=== PATIENT | female | born 1940 | race Caucasian/White ===

== ENCOUNTER 2022-05-13 22:57 | Inpatient (IN) | payer OTHER, SELFPAY ==
--- NOTE | ~2022-05-13 | CT_ITS ---
EXAMINATION: CT brain wo con DATE: 05/20/2022 16:27 INDICATION: Altered mental status. TECHNIQUE: Computed tomography (CT) of the head was performed without intravenous contrast. The mA wa s adjusted according to patient size. Iterative reconstruction technique was employed. The dose-lengt h product was 681.00 mGy-cm. COMPARISON: Head CT 05/14/2022 FINDINGS: There are scattered areas of low attenuation in the cerebral white matter. There is no intr acranial hemorrhage, acute infarction, or abnormal intracranial mass lesion. The ventricles are karon l in size. There are likely changes of ocular lens replacement surgeries. There is mild mucosal thick ening in the paranasal sinuses. The mastoid air cells are normal. IMPRESSION: 1. Stable mild nonspecific cerebral white matter disease, which likely represents chronic small vesse l ischemic disease. Reviewed, dictated and finalized at location B. IMPRESSION: 1. Stable mild nonspecific cerebral white matter disease, which likely represen ts chronic small vessel ischemic disease.
--- NOTE | ~2022-05-13 | CT_ITS ---
EXAMINATION: CT thoracic lumbar wo con DATE: 05/14/2022 00:38 INDICATION: Back pain. Fall. TECHNIQUE: Computed tomography (CT) of the thoracic and lumbar spine was performed without intravenou s contrast. Automated exposure control and iterative reconstruction technique were employed. The dose -length product was 1385.77 mGy-cm. COMPARISON: None FINDINGS: CT THORACIC SPINE: There are surgical changes of the stomach. There is a small sliding hiatal hernia. There is ingested material in the esophagus. There is 32 degrees dextroscoliosis of thoracic spine. There is kyphosis of thoracic spine. There is a burst fracture of T9 with 1/5 loss of height and retr opulsion of bone 2 mm into central spinal canal. There is a chronic burst fracture of T12 with 1/5 lo ss of height and retropulsion of bone 2 mm into central spinal canal. There is mildly decreased disc height at multiple levels. There is multilevel facet joint osteoarthritis, severe on the right at T4- T5 and T11-T12. On the right, there is mild neural foraminal stenosis at T4-T5 and moderate neural fo raminal stenosis at T11-T12. On the left, there is mild neural foraminal stenosis at T5-T6, T6-T7, T7 -T8, T9-T10, T10-T11, and T11-T12. There is mild central canal stenosis at T9 and T11-T12. CT LUMBAR SPINE: There is 50 degrees levoscoliosis of thoracolumbar spine. There is a chronic burst f racture of L3 with 1/5 loss of height and retropulsion of bone 3 mm into central spinal canal. The fo llowing disc levels are specifically discussed: T12-L1: The disc is bulging. There is severe bilateral facet joint osteoarthritis. There is moderate right and mild left neural foraminal stenosis. There is mild central canal stenosis. L1-L2: The disc does not extend beyond the endplate margin. There is severe bilateral facet joint ost eoarthritis. There is moderate right and mild left neural foraminal stenosis. There is no central can al stenosis. L2-L3: The disc is bulging. There is severe bilateral facet joint osteoarthritis. There is mild bilat eral neural foraminal stenosis. There is mild central canal stenosis. L3-L4: The disc is bulging. There is severe bilateral facet joint osteoarthritis. There is moderate r ight and mild left neural foraminal stenosis. There is moderate central canal stenosis. L4-L5: The disc is bulging. There is severe bilateral facet joint osteoarthritis. There is mild right and moderate left neural foraminal stenosis. There is mild central canal stenosis. L5-S1: The disc is bulging. There is severe bilateral facet joint osteoarthritis. There is mild bilat eral neural foraminal stenosis. There is no central canal stenosis. IMPRESSION: 1. T9 burst fracture, likely acute or subacute. 2. Mild thoracic spondylosis and severe lumbar spondylosis. 3. Scoliosis. Reviewed, dictated and finalized at location A.
--- NOTE | ~2022-05-13 | XR_ITS ---
EXAMINATION: XR chest 2V DATE: 05/20/2022 16:13 INDICATION: Shortness of breath TECHNIQUE: AP and lateral views of the chest are obtained. COMPARISON: 05/14/2022 FINDINGS: There are airspace opacities of the left upper lobe. No pleural effusion or pneumothorax. T he cardiomediastinal silhouette is normal. There is a T9 burst fracture with interval worsening. Thor acolumbar scoliosis is noted. IMPRESSION: 1. Left upper lobe airspace opacity, consistent with atelectasis versus pneumonia. 2. Worsening T9 burst fracture. Reviewed, dictated and finalized at location A. IMPRESSION: 1. Left upper lobe airspace opacity, consistent with atelectasis versus pneumon ia. 2. Worsening T9 burst fracture.
--- NOTE | ~2022-05-13 | XR_ITS ---
EXAMINATION: XR surgery orthopedic DATE: 05/14/2022 14:03 INDICATION: Left hip intertrochanteric nailing TECHNIQUE: 4 fluoroscopic images of the left hip and proximal femur were obtained during procedure pe rformed by Dr. Ochoa. Radiologist was not present for the imaging or procedure. The amount of fluor oscopy time used during this procedure was 1.3 minutes. COMPARISON: 05/14/2022 FINDINGS: Interval reduction of the previous noted comminuted intratrochanteric fracture of the proximal left f emur. Main proximal and distal fragments been reduced to near-anatomic alignment and are fixed with a n antegrade intramedullary herrera with femoral neck dynamic compression screw and distal interlocking sc rew fixation. No significant change in approximately 1 cm proximal/medial distraction of a lesser tro chanteric fragment which is not included within the fixation. No new fractures identified. There is w idening of the medial side of the left hip joint space which suggests that the images obtained with t raction upon the left hip. Marginal ossified swelling the lateral rim of the acetabulum suggests at l east mild underlying osteoarthritis. Expected small amount of soft tissue gas at the operative bed. IMPRESSION: 1. Near-anatomic alignment post open reduction and internal fixation of a comminuted intratrochanteri c fracture of the proximal left femur. Reviewed, dictated and finalized at location B. IMPRESSION: 1. Near-anatomic alignment post open reduction and internal fixation of a commi nuted intratrochanteric fracture of the proximal left femur.
--- NOTE | ~2022-05-13 | XR_ITS ---
EXAMINATION: XR hip LT 2V w AP pelvis DATE: 05/14/2022 00:33 INDICATION: Left hip pain. TECHNIQUE: An anteroposterior view of the pelvis and 2 views of left hip were obtained. COMPARISON: None. FINDINGS: There is a comminuted intertrochanteric fracture of proximal left femur. The main distal fr acture fragment demonstrates 72 degrees posterior angulation and 25 degrees varus angulation. There i s mild left hip osteoarthritis. There is lumbar levoscoliosis and severe spondylosis. IMPRESSION: 1. Comminuted intertrochanteric fracture of proximal left femur. 2. Mild left hip osteoarthritis. Reviewed, dictated and finalized at location A.
--- NOTE | ~2022-05-13 | XR_ITS ---
EXAMINATION: XR chest 1V DATE: 05/14/2022 00:33 INDICATION: Dizziness. TECHNIQUE: A single frontal view of the chest was obtained. COMPARISON: None. FINDINGS: The chest demonstrates clear lungs without pneumonia, pleural effusion, or pneumothorax. Th e heart size is normal. Surgical clips in the right upper quadrant are likely from cholecystectomy. IMPRESSION: 1. No acute cardiopulmonary disease. Reviewed, dictated and finalized at location A.
--- NOTE | ~2022-05-13 | CT_ITS ---
EXAMINATION: CT brain wo con DATE: 05/14/2022 00:38 INDICATION: Dizziness. Head injury. TECHNIQUE: Computed tomography (CT) of the head was performed without intravenous contrast. The mA wa s adjusted according to patient size. Iterative reconstruction technique was employed. The dose-lengt h product was 681.00 mGy-cm. COMPARISON: None FINDINGS: There are scattered areas of low attenuation in the cerebral white matter. There is an empt y sella. There is no intracranial hemorrhage, acute infarction, or abnormal intracranial mass lesion. The ventricles are normal in size. There is mild mucosal thickening in the paranasal sinuses. There are likely changes of ocular lens replacement surgeries. The mastoid air cells are normal. IMPRESSION: 1. Mild nonspecific cerebral white matter disease, which likely represents chronic small vessel ische adeline disease. Reviewed, dictated and finalized at location A. IMPRESSION: 1. 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
[2022-05-13 23:08] VITALS: BP 112/90; PULSE 93; RESP 18; TEMP 36.6; O2SAT 100
--- NOTE | 2022-05-13 23:17 | ED.LOWEXIN ---
HPI - Extremity Injury (Lower) General Chief Complaint: Extremity Injury, Lower Stated Complaint: FALL, HIP PAIN Time Seen by Provider: 05/13/22 23:17 Source: patient Mode of arrival: ambulatory Limitations: no limitations History of Present Illness HPI Narrative: Patient is an 81-year-old female with a history of hypertension, hyperlipidemia, mild cognitive impairment, acid reflux, hypothyroidism, presenting to the emergency department for evaluation following a ground-level fall with left hip pain. Patient states that she stood up from a seated position to walk to bed when she became dizzy, causing her to fall to her left side. Patient landed on her left side, reports immediate left hip pain. States that she did not hit her head or lose consciousness. She denies anticoagulation. Patient states she was unable to stand, thus her called an ambulance was transported here to the hospital. Patient currently reports mild nausea, pain in her left hip which is aching in nature. She reports middle back pain. She denies any chest pain, shortness of breath. Patient denies recent illnesses. She denies fever, chills, dysuria or hematuria. She denies abdominal pain. Patient states she recently moved to this area in December. Does not currently have a physician in [place]. Patient is also reporting middle back pain. Reports pain is aching in the middle of her spine, occurred after the fall. Related Data Allergies Allergy/AdvReac Type Severity Reaction Status Date / Time diphenhydramine AdvReac Agitated Verified 05/13/22 23:50 [From Britton] Review of Systems Review of Systems: CONSTITUTIONAL: Denies fever, chills EYES: Denies visual changes, redness, or discharge. ENT: Denies rhinorrhea, congestion, sore throat, or otalgia. CARDIOVASCULAR: Denies chest pain, palpitations, or edema. RESPIRATORY: Denies cough or dyspnea. GASTROINTESTINAL: Denies abdominal pain, reports nausea GENITOURINARY: Denies dysuria or hematuria. SKIN: Denies rash or itching. MUSCULOSKELETAL: Reports middle and lower back pain, reports left hip pain NEUROLOGIC: Denies headache, numbness, or weakness. Reports dizziness. [facility] Surgical History Surgical History H/O: hysterectomy Hx of cholecystectomy Social History Social History Smoking status: Never smoker Alcohol intake: never Substance use: never Living arrangements: with family Gender identity (if verbalized by the patient): Female Exam Narrative: GENERAL: Awake, alert, conversant HEAD: Normocephalic, atraumatic. EYES: PERRLA and EOMI. No horizontal or vertical nystagmus. ENT: Nares clear, no rhinorrhea or epistaxis. Mucous membranes moist. NECK: Supple. No cervical midline tenderness. CHEST: No respiratory distress, breathing even and non labored HEART: Regular rate, sinus rhythm ABDOMEN:Non distended, non tender EXTREMITIES: Patient with pain overlying the left hip. There is deformity present. The leg is shortened and externally rotated. DP pulse 2+. Intact distal sensation. SKIN: Warm, dry, no rash. NEURO:No focal deficits. Alert and oriented x3. Finger to nose intact bilaterally without dysmetria EOMs intact without nystagmus. No facial droop/asymmetry noted bilaterally. Grimace intact. Intact sensation in face. Hearing intact bilaterally. Shoulder shrug intact. Strength 5/5 bilateral upper extremities. Strength in the right lower extremity is 5/5. Strength in the left lower extremity was not tested due to deformity and pain. Intact distal sensation. Course Vital Signs Vital signs: Vital Signs Temperature 36.6 C 05/13/22 23:08 Pulse Rate 93 05/13/22 23:08 Respiratory Rate 18 05/13/22 23:08 Blood Pressure 112/90 05/13/22 23:08 Pulse Oximetry 100 05/13/22 23:08 Oxygen Delivery Room Air 05/13/22 23:08 Temperature 36.6 C
[2022-05-13 23:52] LABS: Basophils Percent Auto 0.2 % (0.2-1.2); Eosinophils Percent Auto 0.2 % (0-4.4); Hematocrit 38.4 % (37.0-47.0); Hemoglobin 12.1 g/dL (12.0-15.0); Immature Granulocyte Absolute 0.26 K/mm3 (0.00-0.031); Immature Granulocyte Percent A 1.9 % (0-0.5); Lymphocytes Absolute Auto 1.37 K/mm3 (0.9-3.2); Lymphocytes Percent Auto 10.1 % (18.3-44.2); Mean Corpuscular HGB Conc 31.5 g/dl (32-36); Mean Corpuscular Hemoglobin 29.9 pg (26-34); Mean Corpuscular Volume 94.8 fl (80-100); Mean Platelet Volume 10.2 fl (7.4-10.4); Monocytes Absolute Auto 0.8 K/mm3 (0.1-0.6); Monocytes Percent Auto 6.2 % (2.6-8.5); Neutrophils Percent Auto 81.4 % (45.5-73.1); Platelet Count Result 356 k/mm3 (150-375); Red Blood Count 4.05 M/mm3 (4.2-5.4); Red Cell Distribution Width 13.7 % (11.5-14.5); White Blood Count 13.6 K/mm3 (4.5-10.0)
[2022-05-13 23:53] VITALS: PULSE 93; RESP 19; O2SAT 99
[2022-05-13 23:54] VITALS: BP 128/84; PULSE 98; RESP 22
[2022-05-13 23:54] LABS: Add Urine Microscopic? YES; Appearance Urine Cloudy (Clear); Bilirubin Urine Negative (Negative); Blood Urine Negative (Negative); Color Urine Yellow (Yellow); Glucose Urine UA Negative (Negative); Ketones Urine Negative (Negative); Leukocyte Esterase Ur Negative LEU/UL (Negative); Nitrate Urine Negative (Negative); Protein Urine Negative (Negative); RBC Urine 0-2 /hpf (0-2); Specific Grav Ur 1.008 (1.001-1.035); Squamous Epithelial Cell Urine Rare /hpf (Few); Urobilinogen Urine Negative mg/dL (<2.0); WBC Urine 0-3 /hpf
[2022-05-13] MEDS: MORPHINE SULFATE (*CRX) 2 MG/ML INJ IV PUSH (23:55)
[2022-05-13] MEDS: ONDANSETRON INJ 4 MG/2 ML VIAL IV PUSH (23:55)
[2022-05-14] VITALS (20 sets, daily range): BP systolic 114–155; BP diastolic 70–96; PULSE 88–119; RESP 12–23; TEMP 36–36.7; O2SAT 93–100; BMI 26.4
--- NOTE | 2022-05-14 | ECG_ITS ---
Measurements Intervals [place] Rate: 92 P: 54 UT: 159 QRS: -7 QRSD: 83 T: 33 QT: 367 QTc: 455 Interpretive Statements SINUS RHYTHM INCOMPLETE RIGHT BUNDLE BRANCH BLOCK NONSPECIFIC T-WAVE ABNORMALITY BASELINE ARTIFACT IS PRESENT NO PREVIOUS ECG AVAILABLE FOR COMPARISON Electronically Signed On 05-14-2022 14:42:44 CDT by Traci Aquino M.D.
[2022-05-14 00:04] LABS: Alanine Aminotransferase 22 U/L (6-35); Albumin Level 3.8 g/dL (3.5-5.1); Alkaline Phosphatase 69 U/L (38-126); Anion Gap 7 mmol/L (8-16); Aspartate Amino Transferase 24 U/L (14-36); Bilirubin,Total 0.6 mg/dL (0.2-1.3); Blood Urea Nitrogen 27 mg/dL (7-17); Calcium 9.4 mg/dL (8.4-10.2); Carbon Dioxide 26 mmol/L (22-30); Chloride 100 mmol/L (98-107); Estimated CRCL calculation 36 ml/min; Estimated Glomerular Filt Rate 48; Glucose 153 mg/dL (65-110); Partial Thromboplastin Time 29.5 SECONDS (22.3-36.8); Potassium 3.8 mmol/L (3.4-5.0); Sodium 133 mmol/L (137-145)
[2022-05-14 00:15] LABS: Troponin I < 0.012 ng/mL (0.000-0.034)
[2022-05-14 00:31] LABS: SARS-CoV-2 RNA PCR Negative
[2022-05-14] MEDS: MECLIZINE HCL 25 MG TABLET PO (00:43)
--- NOTE | 2022-05-14 01:11 | PM.IMHP ---
H&P: HPI History of Present Illness Date/Time: 05/14/22 01:11 Chief Complaint: 81 years old female with past medical history of hypertension hyperlipidemia presented to the hospital status post fall patient was feeling dizzy after she stood up from setting patient fell to the ground on the left side started complaining of left hip pain severe associated with difficulty walking patient also complaining of lower back pain severe worsening gradually patient also complained of nausea denies vomiting at the ER skeletal survey was done showed fracture of the hip orthopedic was consulted also patient has compression fracture of the lumbar spine pending final report patient was admitted to the hospital for further evaluation and treatment Review of Systems Review of Systems: Twelve system review was negative except above PMFSH Surgical History Surgical History H/O: hysterectomy Hx of cholecystectomy Social History Social History Smoking status: Never smoker Alcohol intake: never Substance use: never Living arrangements: with family Gender identity (if verbalized by the patient): Female Meds Home Medications and Allergies Allergies Allergy/AdvReac Type Severity Reaction Status Date / Time diphenhydramine AdvReac Agitated Verified 05/13/22 23:50 [From Benadryl] Vital Signs Vital Signs - 24 hr 05/13/22 23:08 05/13/22 23:53 05/13/22 23:54 Temperature 97.9 F Pulse Rate 93 93 98 Respiratory Rate 18 19 22 H Blood Pressure 112/90 128/84 Pulse Oximetry 100 99 Oxygen Delivery Room Air 05/14/22 00:00 05/14/22 00:01 Temperature Pulse Rate 94 94 Respiratory Rate 19 23 H Blood Pressure 123/93 H Pulse Oximetry 100 98 Oxygen Delivery Exam Narrative: GENERAL: Well appearing, well-nourished, non-toxic, in no acute distress. HEAD: Normocephalic, atraumatic. NECK: Supple. No adenopathy, no masses. RESPIRATORY: Airway patent, respirations nonlabored. Clear to auscultation bilaterally, no rales, rhonchi, wheezing. CARDIOVASCULAR: Regular rate and rhythm without murmurs, rubs, or gallops. Peripheral pulses 2+ and equal bilaterally. ABDOMINAL: Soft, nontender, nondistended, no hepatosplenomegaly. Normoactive BS. MUSCULOSKELETAL: Positive back tenderness positive hip tenderness restricted joint movement SKIN: Warm, dry, normal color. No rashes. NEURO: A&O X3. Speech clear. Cranial nerves II-XII grossly intact. Steady gait. No ataxic movements. PSYCHIATRIC: Appropriate mood and affect. Normal interaction. H&P: Results Labs Labs: Short CBC 05/13/22 Range/Units 23:44 WBC 13.6 H (4.5-10.0) K/mm3 Hgb 12.1 (12.0-15.0) g/dL Hct 38.4 (37.0-47.0) % Plt Count 356 (150-375) k/mm3 BMP 05/13/22 23:44 Sodium 133 L Potassium 3.8 Chloride 100 Carbon Dioxide 26 BUN 27 H Creatinine 1.10 H Glucose 153 H Calcium 9.4 Cardiac Enzymes 05/13/22 Range/Units 23:44 Troponin I < 0.012 (0.000-0.034) ng/mL Liver Function 05/13/22 Range/Units 23:44 Total Bilirubin 0.6 (0.2-1.3) mg/dL AST 24 (14-36) U/L ALT 22 (6-35) U/L Alkaline Phosphatase 69 (38-126) U/L Albumin 3.8 (3.5-5.1) g/dL Urine 05/13/22 Range/Units 23:44 Urine Color Yellow (Yellow) Urine Appearance Cloudy H (Clear) Urine pH 5.0 (5.0-9.0) Ur Specific [place] 1.008 (1.001-1.035) Urine Protein Negative (Negative) mg/dL Urine Glucose (UA) Negative (Negative) mg/dL Assessment and Plan Assessment and plan (1) Hypertriglyceridemia: Code(s): E78.1 - Pure hyperglyceridemia Status: Acute Assessment and Plan: Pending home medication reconciliation check CK (2) Hypothyroidism: Code(s): E03.9 - Hypothyroidism, unspecified Status: Acute Assessment and Plan: Pending home medication reconciliation
[2022-05-14] MEDS: MORPHINE SULFATE (*CRX) 2 MG/ML INJ IV PUSH ×2 (01:42→07:58)
[2022-05-14] MEDS: LACTATED RINGERS 1,000 ML 125 ML IV CONT (01:43)
[2022-05-14 02:33] LABS: Vitamin D 25 Hydroxy 47.6 ng/mL
[2022-05-14] MEDS: ONDANSETRON INJ 4 MG/2 ML VIAL IV PUSH ×3 (06:01→16:35)
[2022-05-14 06:06] LABS: Basophils Absolute Auto 0.1 K/mm3 (0.0-0.1); Basophils Percent Auto 0.3 % (0.2-1.2); Eosinophils Percent Auto 0.1 % (0-4.4); Hematocrit 38.5 % (37.0-47.0); Hemoglobin 12.1 g/dL (12.0-15.0); Immature Granulocyte Percent A 1.2 % (0-0.5); Lymphocytes Percent Auto 4.8 % (18.3-44.2); Mean Corpuscular HGB Conc 31.4 g/dl (32-36); Mean Corpuscular Volume 95.3 fl (80-100); Mean Platelet Volume 10.6 fl (7.4-10.4); Monocytes Absolute Auto 2.3 K/mm3 (0.1-0.6); Monocytes Percent Auto 9.2 % (2.6-8.5); Neutrophils Absolute Auto 21.1 K/mm3 (1.3-6.7); Neutrophils Percent Auto 84.4 % (45.5-73.1); Platelet Count Result 289 k/mm3 (150-375); Red Blood Count 4.04 M/mm3 (4.2-5.4); Red Cell Distribution Width 13.5 % (11.5-14.5)
[2022-05-14 06:31] LABS: Alanine Aminotransferase 21 U/L (6-35); Albumin Level 3.7 g/dL (3.5-5.1); Alkaline Phosphatase 62 U/L (38-126); Anion Gap 9 mmol/L (8-16); Aspartate Amino Transferase 24 U/L (14-36); Bilirubin,Total 0.8 mg/dL (0.2-1.3); Blood Urea Nitrogen 29 mg/dL (7-17); Calcium 9.4 mg/dL (8.4-10.2); Carbon Dioxide 24 mmol/L (22-30); Chloride 103 mmol/L (98-107); Estimated CRCL calculation 29 ml/min; Estimated Glomerular Filt Rate 43; Glucose 132 mg/dL (65-110); Potassium 3.8 mmol/L (3.4-5.0); Sodium 136 mmol/L (137-145)
--- NOTE | 2022-05-14 07:25 | PM.CNOR ---
Assessment and Plan Assessment and plan (1) Closed intertrochanteric fracture of left hip: Code(s): S72.142A - Displaced intertrochanteric fracture of left femur, initial encounter for closed fracture Status: Acute Assessment and Plan: Discussed nonoperative and operative treatment options with the patient. Risks and benefits of each as well as alternatives were reviewed. All of the patient's questions were answered. The risks of surgery reviewed including but not limited to: Neurovascular damage, wound complication, infection, blood clot, pulmonary embolus, stroke, myocardial infarction, and anesthetic risks up to and including . Continued pain and possible dysfunction were explained. Specific risks of the procedure including later recurrence of deformity. No guarantees were offered. If hardware used, discussed risk of failure/ breakage and possible need for removal. If complications occur, the patient understands the need for further treatment, possible further surgery. Patient verbalizes understanding and wishes to proceed. PLAN: LT hip trochanteric nail with hip screw when stable History of Present Illness HPI Consult date: 05/14/22 Requesting physician: Rut Lyon MD Chief complaint: HIP FRACTURE Narrative: 81yo woman with mild dementia, fall at home on left side. LT hip fracture. C/O pain left side. No prior complaints Review of Systems Constitutional: Constitutional: Denies fever(s) Eyes: Eyes: Denies blurry vision ENT: Reports Normal hearing present Cardiovascular: Cardiovascular: Denies chest pain and Denies dyspnea Respiratory: Respiratory: Denies dyspnea and Denies wheezing Gastrointestinal: Gastrointestinal: Denies abdominal pain Genitourinary: Genitourinary: Denies urinary urgency Musculoskeletal: Musculoskeletal: Reports as per HPI and Denies numbness Integumentary/Breasts: Skin/Breast: Denies changing lesions and Denies sores Neurologic: Reports Normal hearing present, Denies behavioral changes, Denies confusion, Denies numbness and Denies convulsions Psychiatric: Psychiatric: Denies behavioral changes, Denies confusion and Denies hallucinations Endocrine: Endocrine: Denies heat intolerance Hematologic/Lymphatic: Hematologic/Lymphatic: Denies easy bleeding Allergic/Immunologic: Allergic/Immunologic: Denies wheezing PMFSH Past Medical History Medical History (Updated 05/14/22 @ 07:28 by Kurtis Ochoa MD) Closed intertrochanteric fracture of left hip Surgical History Surgical History H/O: hysterectomy Hx of cholecystectomy Family History Family History Other Unknown family medical history Social History Social History Smoking status: Never smoker Alcohol intake: never Substance use: never Living arrangements: with family Gender identity (if verbalized by the patient): Female Spiritual care concerns: No Meds Home Medications and Allergies Home Medications Medication Instructions Recorded Confirmed Type cyanocobalamin (vitamin B-12) 500 500 mcg PO DAILY 05/14/22 05/14/22 History mcg tablet (Vitamin B-12) cyclobenzaprine 10 mg tablet 10 mg PO BID PRN Muscle Spasm 05/14/22 05/14/22 History dicyclomine 10 mg capsule 10 mg PO BID PRN IBS 05/14/22 05/14/22 History donepezil 5 mg tablet 5 mg PO HS 05/14/22 05/14/22 History duloxetine 60 mg capsule,delayed 60 mg PO DAILY 05/14/22 05/14/22 History release eszopiclone 3 mg tablet 3 mg PO HS 05/14/22 05/14/22 History ezetimibe 10 mg tablet 10 mg PO DAILY 05/14/22 05/14/22 History folic acid 1 mg tablet 1 mg PO DAILY 05/14/22 05/14/22 History gabapentin 600 mg tablet 600 mg PO TID 05/14/22 05/14/22 History levothyroxine 50 mcg tablet 50 mcg PO DAILY 05/14/22 05/14/22 History pantoprazole 40 mg tablet,delayed 40 mg PO BI
--- NOTE | 2022-05-14 07:28 | PM.IMPN ---
Progress Note: A&P Assessment and Plan (1) Closed left hip fracture: Qualifiers: Encounter type: initial encounter Qualified Code(s): S72.002A - Fracture of unspecified part of neck of left femur, initial encounter for closed fracture Code(s): S72.002A - Fracture of unspecified part of neck of left femur, initial encounter for closed fracture Status: Acute Assessment and Plan: Imaging shows comminuted left femoral hip fracture following fall from ground level. Orthopedic surgery consulted and appreciate recommendations. Plan for OR today 05/14/22. Jacques perioperative risk for LEXI score 0.4%. SR with incomplete right BBB & non-specific ST changes. Echo pending and will be done postop. troponin <0.012. LDL 79, HDL 42. A1c 5.6%. WBC 25, but likely secondary to fracture. UA without acute infection. Continue pain control with IV morphine 2 mg Q2 hours. DVT prophylaxis SCDs preop Vitamin D 25-OH level 47.6 (2) Compression fracture of thoracic vertebra: Qualifiers: Encounter type: initial encounter Thoracic vertebra fracture level: T9 Qualified Code(s): S22.070A - Wedge compression fracture of T9-T10 vertebra, initial encounter for closed fracture Code(s): S22.000A - Wedge compression fracture of unspecified thoracic vertebra, initial encounter for closed fracture Status: Acute Assessment and Plan: CT thoracic spine with acute vs subacute burst fracture of T9 with 1/5 loss of height and retropulsion of bone 2 mm into central spinal canal, as well as chronic burst fracture of T12 with 1/5 loss of height and retropulsion of bone 2 mm into central spinal canal. Pain control as above. She reports taking prednisone for chronic back pain. Consult Neurosurgery for further evaluation. Unknown last DEXA scan. Family reports the patient may have been diagnosed with osteoporosis in the past, but do not know if she has received oral or injection therapy. She reports chronic lower back pain history and is currently on Cymbalta, cyclobenzaprine PRN, prednisone and gabapentin. Resume all medications but prednisone postop. (3) Hypertension: Qualifiers: Hypertension type: primary hypertension Qualified Code(s): I10 - Essential (primary) hypertension Code(s): I10 - Essential (primary) hypertension Status: Acute Assessment and Plan: Chronic, stable, not currently on antihypertensives. (4) Hypothyroidism: Qualifiers: Hypothyroidism type: acquired Qualified Code(s): E03.9 - Hypothyroidism, unspecified Code(s): E03.9 - Hypothyroidism, unspecified Status: Chronic Assessment and Plan: Chronic, stable. TSH 1.67. Continue levothyroxine at home dose. (5) Chronic kidney disease: Qualifiers: Chronic kidney disease stage: stage 3 (moderate) Chronic kidney disease stage 3 subtype: stage 3a (GFR 45-59) Qualified Code(s): N18.31 - Chronic kidney disease, stage 3a Code(s): N18.9 - Chronic kidney disease, unspecified Status: Acute Assessment and Plan: BUN 29, creatinine 1.2, GFR 43. No prior lab work. Presumed to be chronic versus acute. Continued on IV hydration LR@125 ml/hour preop. Trend BMP Monitor I/O status Avoid nephrotoxic agents. (6) Mild cognitive impairment: Code(s): G31.84 - Mild cognitive impairment of uncertain or unknown etiology Status: Chronic Assessment and Plan: AOx3, but forgetful. Family states this is baseline. Resume donepezil postop (7) Hyperlipidemia: Qualifiers: Hyperlipidemia type: mixed hyperlipidemia Qualified Code(s): E78.2 - Mixed hyperlipidemia Code(s): E78.5 - Hyperlipidemia, unspecified Status: Chronic Assessment and Plan: Chronic, stable. LDL 79, HDL 42, triglycerides 102. Continue ezetimibe postop. (8) Hypertriglyceridemia: Code(s): E78.1 - Pure hyperglyceridemia
[2022-05-14] MEDS: LEVOTHYROXINE SODIUM 50 MCG TABLET PO (07:50)
[2022-05-14 08:13] LABS: Cholesterol 142 mg/dL (0-200); HDL Direct 42 mg/dL; Triglycerides 102 mg/dL (<150)
[2022-05-14 08:25] LABS: LDL Cholesterol Direct 79 mg/dL
[2022-05-14 08:52] LABS: Hemoglobin A1C 5.6 % (<5.7)
[2022-05-14 09:20] LABS: Folic Acid > 20.0 ng/mL (2.76->20)
[2022-05-14] MEDS: LACTATED RINGERS 1,000 ML 30 ML IV CONT (10:30)
--- NOTE | 2022-05-14 10:34 | PC.NURSE ---
Patient to OR per bed at 1020 05/14/22.
--- NOTE | 2022-05-14 10:45 | WPDANESEPPF ---
Anes - Initial Pre Proc Eval Procedure: Operation Date: 05/14/22 12:00 Proposed Procedures p Left Intertrochanteric Nail - Kurtis Ochoa MD Date/Time: 05/14/22 10:45 Surgeon: Edel Raymundo MD Pre Op Diagnosis: HIP FRACTURE Patient Data Age: 81 Gender: F Height: 1.63 m Weight: 70 kg Last Vital Signs Temp 36.0 C L 05/14/22 03:23 Pulse 106 H 05/14/22 07:58 Resp 20 05/14/22 07:58 BP 114/73 05/14/22 03:23 Pulse Ox 98 05/14/22 07:58 O2 Del Method Room Air 05/14/22 07:58 Allergies Allergy/AdvReac Type Severity Reaction Status Date / Time diphenhydramine AdvReac Agitated Verified 05/13/22 23:50 [From [facility]] Home Medications Medication Instructions Recorded Confirmed Type cyanocobalamin (vitamin B-12) 500 500 mcg PO DAILY 05/14/22 05/14/22 History mcg tablet (Vitamin B-12) cyclobenzaprine 10 mg tablet 10 mg PO BID PRN Muscle Spasm 05/14/22 05/14/22 History dicyclomine 10 mg capsule 10 mg PO BID PRN IBS 05/14/22 05/14/22 History donepezil 5 mg tablet 5 mg PO HS 05/14/22 05/14/22 History duloxetine 60 mg capsule,delayed 60 mg PO DAILY 05/14/22 05/14/22 History release eszopiclone 3 mg tablet 3 mg PO HS 05/14/22 05/14/22 History ezetimibe 10 mg tablet 10 mg PO DAILY 05/14/22 05/14/22 History folic acid 1 mg tablet 1 mg PO DAILY 05/14/22 05/14/22 History gabapentin 600 mg tablet 600 mg PO TID 05/14/22 05/14/22 History levothyroxine 50 mcg tablet 50 mcg PO DAILY 05/14/22 05/14/22 History pantoprazole 40 mg tablet,delayed 40 mg PO BID 05/14/22 05/14/22 History release potassium chloride 20 mEq 50 meq PO DAILY 05/14/22 05/14/22 History tablet,extended release prednisone 1 mg tablet 1 mg PO DAILY 05/14/22 05/14/22 History Laboratory Tests 05/13/22 05/13/22 05/13/22 23:44 23:44 23:44 WBC RBC Hgb Hct MCV MCH MCHC RDW Plt Count MPV Immature Gran % (Auto) Neut % (Auto) Lymph % (Auto) [place] % (Auto) Eos % (Auto) Baso % (Auto) Lymph # (Auto) [place] # (Auto) Eos # (Auto) Baso # (Auto) Abs Immat Gran (auto) Absolute Neuts (auto) Absolute Nucleated RBC Nucleated RBC % PT 13.0 Seconds Seconds (11.1-14.7) INR 1.0 APTT 29.5 SECONDS SECONDS (22.3-36.8) Sodium Potassium Chloride Carbon Dioxide Anion Gap BUN Creatinine Estim Creat Clear Calc Estimated GFR Glucose Hemoglobin A1c Calcium Total Bilirubin AST ALT Alkaline Phosphatase Troponin I < 0.012 ng/mL ng/mL (0.000-0.034) Total Protein Albumin Triglycerides Cholesterol LDL Cholesterol Direct HDL Direct Vitamin B12 Vitamin D 25-Hydroxy Folate TSH (Reflex) Urine Color Yellow (Yellow) Urine Appearance Cloudy H (Clear) Urine pH 5.0 (5.0-9.0) Ur Specific Rea 1.008 (1.001-1.035) Urine Protein Negative mg/dL mg/dL (Negative) Urine Glucose (UA) Negative mg/dL mg/dL (Negative) Urine Ketones Negative mg/dL mg/dL (Negative) Ur Blood (Man) Negative (Negative) Urine Nitrate Negative (Negative) Urine Bilirubin Negative (Negative) Urine Urobilinogen Negative mg/dL mg/dL (<2.0) Leukocyte Esterase Rfl Negative PHILLIP/UL PHILLIP/UL (Negative) Urine RBC 0-2 /hpf /hpf (0-2) Urine WBC 0-3 /hpf /hpf Ur Squamous
--- NOTE | 2022-05-14 12:29 | WPDHPUPDATE1 ---
History and Physical Update Update Date/Time: 05/14/22 12:29 History and Physical has been reviewed, including an updated exam of the patient. There are NO changes in the patient's condition. Risks, benefits, and alternatives have been discussed and questions answered. Patient agrees to proceed with procedure.
[2022-05-14] MEDS: ceFAZolin 2 GM/D5W 50 ML 2 GM/50 ML BAG IVPB (12:55)
[2022-05-14] MEDS: TRANEXAMIC ACID 1,000MG/ISO100 1,000 MG/100 ML BAG 200 MG IVPB (13:08)
[2022-05-14] MEDS: BUPIVACAINE/EPINEPHRINE 0.25% 50 ML VIAL 30 ML INFILTRATE (13:25)
--- NOTE | 2022-05-14 14:22 | W.PM.PROC2 ---
Procedure Note - Detailed Date of Procedure 05/14/22 Pre-op Diagnosis LEFT HIP FRACTURE Post-op Diagnosis Same Procedure Performed Left hip trochanteric nail Surgeon Kurtis Ochoa MD Academic Administrator 1st specimen preparation assistant Anesthesia General Indications 81-year-old woman who fell and sustained left hip intertrochanteric fracture. Patient and family desire operative treatment. Description of Procedure After informed consent the operative extremity was marked in the preoperative holding area. Patient received intravenous antibiotics. The patient was taken to the operative room, placed in the supine position, general anesthesia induced by the anesthesia team. Patient was placed on a fracture table with longitudinal traction applied to the left leg. Right leg was extended out of the field. The hip fracture was reduced to near anatomic position and verified with image intensification. A time-out was performed confirming the patient, site of the surgery and plan. The left lower extremity was prepped and draped sterilely from the knee to the iliac crest region using a ChloraPrep skin solution. Incision was made just proximal to greater trochanter down to the subcutaneous tissues. Hemostasis controlled with electrocautery. Blunt dissection through the fascia to the tip of the greater trochanter. A starter awl was placed at the tip of the greater trochanter into the medullary canal of the femur. This was checked with image intensification and was in good position. Intramedullary guide herrera positioned. A one-step hand reaming done proximally. Intramedullary canal was reamed with a 12.5 millimeter flexible reamer. Neck angle selected off of preoperative radiographs temp plating. 125 degree 11mm X 20cm Nail opened on the back table and assembled. This was then inserted over the guide herrera to the correct depth. Guide herrera removed. Lag screw was then placed with a stab incision over the lateral femur using a 10 blade knife. Blunt dissection down to the lateral side of the bone. Soft tissue protectors placed. Guide pin placed in the center- center position of the femoral head and measured. Anti rotation screw then placed with a 2nd soft tissue protector and drill to the appropriate depth. Verified with image intensification. Lag screw was then placed. 90millimeter x 10.5 millimeter lag screw placed to correct depth and verified with image intensification. Traction released from the leg and compression of the fracture performed with the external compression device. Anti rotation screw then placed through the guide bautista to the correct depth. Distal locking of the nail then performed. Stab incision made lateral distal thigh. Blunt dissection down lateral side of the femur. Soft tissue protector placed. Femur drilled from lateral to medial through the distal nail. Distal femur measured and the appropriate size screw placed. Image intensification confirmed the placement through the locking hole. Final image intensification confirmed reduction of the fracture and placement of the hardware. Wounds then thoroughly irrigated with antibiotic solution. Fascia repaired with 0 Vicryl interrupted suture. Subcutaneous tissue repaired with 00 Vicryl interrupted suture and skin repaired with rudy. Sterile dressings applied. Patient then awoke from anesthesia, extubated, taken to recovery room stable condition. All sponge, needle and instrument counts correct at the end the case. Implants Arthrex 11 mm x 200 mm trochanteric nail with 90 mm lag screw and 80 mm anti-rotational screw. Estimated Blood Loss 100 Drains No Packing No Pathology None sent Complications None Condition Stable Disposition PACU
--- NOTE | 2022-05-14 16:29 | WPDNEUROSGCN ---
Assessment and Plan Assessment and plan (1) Thoracic compression fracture: Code(s): S22.000A - Wedge compression fracture of unspecified thoracic vertebra, initial encounter for closed fracture Status: Acute Plan Malini is an 81-year-old female who experienced a fall last night resulting in a left intertrochanteric fracture and a T9 compression fracture. She is not aware of her bone density but this should likely be evaluated and then treated by her primary care physician. From the standpoint the thoracic fracture no surgical treatment is necessary. We will obtain a brace for her which she should use with any out of bed activity for pain control. Pain medicine and muscle relaxants will also be necessary. she has distracting pain in the left hip at this time. I do not believe that she has any neurologic deficit related to the fracture. Physical and occupational therapy may be involved in her care and she may enjoy out of bed activity from the standpoint of the thoracic fracture when cleared by Dr. Ochoa to be out of bed with regards to the low left hip issue. Review of Systems Review of Systems: Patient denies shortness of breath, cough, fever, chills, weight loss, weight gain, chest pain, dysuria. She is having some nausea. She has back pain and left hip pain and right knee pain as detailed above. [facility] Past Medical History Medical History Closed intertrochanteric fracture of left hip Surgical History Surgical History H/O: hysterectomy Hx of cholecystectomy Family History Family History Other Unknown family medical history Social History Social History Smoking status: Never smoker Alcohol intake: never Substance use: never Living arrangements: with family Gender identity (if verbalized by the patient): Female Spiritual care concerns: No Meds Home Medications and Allergies Home Medications Medication Instructions Recorded Confirmed Type cyanocobalamin (vitamin B-12) 500 500 mcg PO DAILY 05/14/22 05/14/22 History mcg tablet (Vitamin B-12) cyclobenzaprine 10 mg tablet 10 mg PO BID PRN Muscle Spasm 05/14/22 05/14/22 History dicyclomine 10 mg capsule 10 mg PO BID PRN IBS 05/14/22 05/14/22 History donepezil 5 mg tablet 5 mg PO HS 05/14/22 05/14/22 History duloxetine 60 mg capsule,delayed 60 mg PO DAILY 05/14/22 05/14/22 History release eszopiclone 3 mg tablet 3 mg PO HS 05/14/22 05/14/22 History ezetimibe 10 mg tablet 10 mg PO DAILY 05/14/22 05/14/22 History folic acid 1 mg tablet 1 mg PO DAILY 05/14/22 05/14/22 History gabapentin 600 mg tablet 600 mg PO TID 05/14/22 05/14/22 History levothyroxine 50 mcg tablet 50 mcg PO DAILY 05/14/22 05/14/22 History pantoprazole 40 mg tablet,delayed 40 mg PO BID 05/14/22 05/14/22 History release potassium chloride 20 mEq 50 meq PO DAILY 05/14/22 05/14/22 History tablet,extended release prednisone 1 mg tablet 1 mg PO DAILY 05/14/22 05/14/22 History Allergies Allergy/AdvReac Type Severity Reaction Status Date / Time diphenhydramine AdvReac Agitated Verified 05/13/22 23:50 [From [facility]] Vital Signs Vital Signs - 24 hr 05/13/22 23:08 05/13/22 23:53 05/13/22 23:54 Temperature 97.9 F Pulse Rate 93 93 98 Respiratory Rate 18 19 22 H Blood Pressure 112/90 128/84 Pulse Oximetry 100 99 Oxygen Delivery Room Air 05/14/22 00:00 05/14/22 00:01 05/14/22 03:23 Temperature 96.8 F L Pulse Rate 94 94 96 Respiratory Rate 19 23 H 20 Blood Pressure 123/93 H 114/73 Pulse Oximetry 100 98 98 Oxygen Delivery 05/14/22 04:00 05/14/22 07:58 05/14/22 11:23 Temperature 97.6 F Pulse Rate 106 H 106 H 98 Respiratory Rate 20 18 Blood Pressure 121/70 Pulse Oximetry 98 100 Oxygen Delivery Room
[2022-05-14] MEDS: KCL 20 MEQ/D5/0.45% SOD CHL 1,000 ML 80 ML IV CONT (17:03)
[2022-05-14] MEDS: METOCLOPRAMIDE HCL INJ 10 MG/2 ML VIAL 5 MG IV PUSH (18:37)
[2022-05-14] MEDS: FAMOTIDINE 20 MG TABLET PO (20:43)
[2022-05-14] MEDS: HYDROcodone/acetaminophen (*CRX) 5-325 MG TABLET 1 TAB PO (23:21)
[2022-05-15] VITALS (12 sets, daily range): BP systolic 112–131; BP diastolic 63–81; PULSE 89–125; RESP 17–20; TEMP 35.9–36.9; O2SAT 92–97; BMI 11.0
--- NOTE | 2022-05-15 01:08 | ECHO_ITS ---
Patient Info Name: Malini Joe Age: 81 years : 1940 Gender: Female Ht: 64 in Wt: 163 lbs BSA: 1.85 m2 HR: 76 bpm BP: 114 / 76 mmHg Technical Quality: Fair Exam Date: 05/15/2022 12:30 PM Exam Location: [facility] Pulmonary Exam Room: 246 Patient Status: Inpatient Admit Date: 05/14/2022 Staff Ordering Physician: Edel Raymundo M.A., MD Genetic Coordinator: Kesha Smith RDCS Attending Provider: Edel Raymundo M.A., MD Referring Physician: Abdi BARKER; Exam Type: CA echo dop color flow w con Study Info Indications - dizziness Complete two-dimensional, color flow and Doppler transthoracic echocardiogram is performed. Strain analysis performed. Summary 1. Complete two-dimensional, color flow and Doppler transthoracic echocardiogram is performed. 2. Left ventricular chamber dimension is normal. 3. Definity contrast administered improved wall motion interpretation. 4. Left ventricular systolic function is normal, estimated at 60-65%. 5. The left ventricular diastolic function is grade I diastolic dysfunction. 6. Tissue doppler E/e' is not performed. 7. There is trace tricuspid valve regurgitation. 8. No pulmonary hypertension, estimated pulmonary arterial systolic pressure is 36 mmHg. 9. There is trace pulmonic regurgitation. Left Ventricle Tissue doppler E/e' is not performed. Definity contrast administered improved wall motion interpretation. Left ventricular chamber dimension is normal. Left ventricular systolic function is normal, estimated at 60-65%. The left ventricular diastolic function is grade I diastolic dysfunction. Right Ventricle Right ventricular chamber dimension is normal. Right ventricular systolic function is normal. Left Atria Left atrial chamber dimension is normal. Right Atria Right atrial chamber dimension is normal. Aortic Valve The aortic valve is trileaflet. There is no aortic valve stenosis. There is no aortic valve regurgitation. Pulmonic Valve There is trace pulmonic regurgitation. Mitral Valve There is no mitral valve stenosis. There is no mitral valve regurgitation. Tricuspid Valve There is trace tricuspid valve regurgitation. No pulmonary hypertension, estimated pulmonary arterial systolic pressure is 36 mmHg. Pericardium/Pleural There is no pericardial effusion. Inferior Vena Cava Normal inferior vena cava with >50% collapse upon inspiration consistent with normal right atrial pressure, 5 mmHg. Aorta The aortic root size at the sinus of Valsalva is normal. Left Ventricular Outflow Tract Name Value Normal LVOT 2D LVOT Diameter 1.99 cm LVOT Doppler LVOT Peak Gradient 6 mmHg LVOT Mean Gradient 3 mmHg LVOT VTI 20.91 cm LVOT VTI/AV VTI Ratio 1.04 LVOT Stroke Volume 64.81 ml LVOT CO 15.14 l/min LVOT CI 8.19 L/min/m2 Pulmonic Valve
[2022-05-15] MEDS: LEVOTHYROXINE SODIUM 50 MCG TABLET PO (05:42)
[2022-05-15] MEDS: KCL 20 MEQ/D5/0.45% SOD CHL 1,000 ML 80 ML IV CONT (05:43)
[2022-05-15 06:26] LABS: Basophils Absolute Auto 0.1 K/mm3 (0.0-0.1); Basophils Percent Auto 0.3 % (0.2-1.2); Eosinophils Percent Auto 0.1 % (0-4.4); Hematocrit 26.6 % (37.0-47.0); Hemoglobin 8.4 g/dL (12.0-15.0); Immature Granulocyte Absolute 0.14 K/mm3 (0.00-0.031); Immature Granulocyte Percent A 0.7 % (0-0.5); Lymphocytes Absolute Auto 1.34 K/mm3 (0.9-3.2); Lymphocytes Percent Auto 6.5 % (18.3-44.2); Mean Corpuscular HGB Conc 31.6 g/dl (32-36); Mean Corpuscular Hemoglobin 30.2 pg (26-34); Mean Corpuscular Volume 95.7 fl (80-100); Mean Platelet Volume 10.9 fl (7.4-10.4); Monocytes Absolute Auto 1.2 K/mm3 (0.1-0.6); Neutrophils Absolute Auto 17.8 K/mm3 (1.3-6.7); Neutrophils Percent Auto 86.4 % (45.5-73.1); Platelet Count Result 225 k/mm3 (150-375); Red Blood Count 2.78 M/mm3 (4.2-5.4); White Blood Count 20.7 K/mm3 (4.5-10.0)
[2022-05-15 06:34] LABS: Alanine Aminotransferase 18 U/L (6-35); Albumin Level 3.1 g/dL (3.5-5.1); Alkaline Phosphatase 51 U/L (38-126); Anion Gap 6 mmol/L (8-16); Aspartate Amino Transferase 24 U/L (14-36); Blood Urea Nitrogen 29 mg/dL (7-17); Calcium 8.4 mg/dL (8.4-10.2); Carbon Dioxide 27 mmol/L (22-30); Chloride 102 mmol/L (98-107); Estimated CRCL calculation 27 ml/min; Estimated Glomerular Filt Rate 39; Glucose 116 mg/dL (65-110); Potassium 4.1 mmol/L (3.4-5.0); Sodium 135 mmol/L (137-145)
[2022-05-15] MEDS: FONDAPARINUX SODIUM 2.5 MG/0.5 ML SYRINGE SUB-Q (08:31)
[2022-05-15] MEDS: SENNA/DOCUSATE SODIUM TABLET 2 TAB PO ×2 (08:31→17:00)
[2022-05-15] MEDS: FAMOTIDINE 20 MG TABLET PO ×2 (08:31→21:08)
--- NOTE | 2022-05-15 08:46 | PCOTNOTE ---
Therapist attempted to see patient however unable to at this time due to patient not having required brace. Spoke with RN who is aware and calling in orders for brace.
--- NOTE | 2022-05-15 08:48 | PM.IMPN ---
Progress Note: A&P Assessment and Plan (1) Closed left hip fracture: Qualifiers: Encounter type: initial encounter Qualified Code(s): S72.002A - Fracture of unspecified part of neck of left femur, initial encounter for closed fracture Code(s): S72.002A - Fracture of unspecified part of neck of left femur, initial encounter for closed fracture Status: Acute Assessment and Plan: Imaging shows comminuted left femoral hip fracture following fall from ground level. Orthopedic surgery consulted and appreciate recommendations. Plan for OR today 05/14/22. 05/14/22 Georgie perioperative risk for LEXI score 0.4%. SR with incomplete right BBB & non-specific ST changes. Echo pending and will be done postop. preop troponin <0.012. LDL 79, HDL 42. A1c 5.6%. WBC 25, but likely secondary to fracture. UA without acute infection. 05/15/22 Continue pain control with scheduled tylenol 1000 mg Q8 hours, Tramadol 50 mg Q6 hours PRN, morphine 2 mg IV Q2 hours for breakthrough pain and ice pack PRN. Try to avoid narcotics. Resume home cymbalta, gabapentin, and cyclobenzaprin PRN DVT prophylaxis SCDs and fondaparinux Bowel prophylaxis: senna-plus 2 tabs BID and PRN miralax. Vitamin D 25-OH level 47.6 05/15/22 WBC 20, down from 25 on admission, likely secondary to fractures. UA negative and no respiratory complaints. H/h 8.4/26 today, preop 12. Monitor for acute bleeding. EBL 100 mL (2) Compression fracture of thoracic vertebra: Qualifiers: Encounter type: initial encounter Thoracic vertebra fracture level: T9 Qualified Code(s): S22.070A - Wedge compression fracture of T9-T10 vertebra, initial encounter for closed fracture Code(s): S22.000A - Wedge compression fracture of unspecified thoracic vertebra, initial encounter for closed fracture Status: Acute Assessment and Plan: CT thoracic spine with acute vs subacute burst fracture of T9 with 1/5 loss of height and retropulsion of bone 2 mm into central spinal canal, as well as chronic burst fracture of T12 with 1/5 loss of height and retropulsion of bone 2 mm into central spinal canal. Pain control as above. She reports taking prednisone for chronic back pain. Consult Neurosurgery for further evaluation. Unknown last DEXA scan. Family reports the patient may have been diagnosed with osteoporosis in the past, but do not know if she has received oral or injection therapy. She reports chronic lower back pain history and is currently on Cymbalta, cyclobenzaprine PRN, prednisone and gabapentin. Resumed all medications but prednisone postop. Non-surgical. Compression fracture brace for pain, while out of bed. Pin control as above. (3) Hypertension: Qualifiers: Hypertension type: primary hypertension Qualified Code(s): I10 - Essential (primary) hypertension Code(s): I10 - Essential (primary) hypertension Status: Acute Assessment and Plan: Chronic, stable, not currently on antihypertensives. No new medications needed at this time. (4) Hypothyroidism: Qualifiers: Hypothyroidism type: acquired Qualified Code(s): E03.9 - Hypothyroidism, unspecified Code(s): E03.9 - Hypothyroidism, unspecified Status: Chronic Assessment and Plan: Chronic, stable. TSH 1.67. Continue levothyroxine at home dose. (5) Chronic kidney disease: Qualifiers: Chronic kidney disease stage: stage 3 (moderate) Chronic kidney disease stage 3 subtype: stage 3a (GFR 45-59) Qualified Code(s): N18.31 - Chronic kidney disease, stage 3a Code(s): N18.9 - Chronic kidney disease, unspecified Status: Acute Assessment and Plan: BUN 29, creatinine 1.2, GFR 43. No prior lab work. Presumed to be chronic versus acute. Trend BMP Monitor I/O status Avoid nephrotoxic agents. 05/15/22 BUN 29, creatinine 1.3, GFR 39. Continue IV fluids until taking good PO. Electrolytes stable.
--- NOTE | 2022-05-15 08:54 | PM.PNORT ---
Progress Note: A&P Assessment and Plan (1) Closed intertrochanteric fracture of left hip: Qualifiers: Encounter type: subsequent encounter Fracture alignment: displaced Fracture healing: with routine healing Qualified Code(s): S72.142D - Displaced intertrochanteric fracture of left femur, subsequent encounter for closed fracture with routine healing Code(s): S72.142A - Displaced intertrochanteric fracture of left femur, initial encounter for closed fracture Status: Acute Assessment and Plan: Postoperative day 1 left hip trochanteric nail. Pain better. More disoriented today. Try to limit narcotics. PT/OT with weight-bearing as tolerated. Attempt to transfer to chair today. White count slightly improved. Acute blood loss anemia. We will follow labs. Disposition when medically cleared. Subjective Subjective Date/Time Seen: 05/15/22 08:54 Post Op day: 1 Principal diagnosis: LT hip fracture Interval history: Patient awake. States pain is better. Oriented to self only. Exam Const: General: comfortable; No acute distress Resp: Effort & Inspection: normal respiratory effort and no audible wheezes Extrem: Right lower extremity: lower leg ( Negative Homans sign), ankle Details: normal ROM ( dorsiflexion and plantar flexion intact) and foot Details: vascular exam Details: dorsalis pedis pulse present and normal capillary refill, tendon exam Details: active flexion normal and active extension normal and motor-sensory exam Details: light-touch normal Location: in all toes; no edema Left lower extremity: normal to inspection, hip/thigh Details: other ( Dressing in place. Clean and dry. Muscles soft.), ankle Details: normal ROM and foot Details: vascular exam Details: dorsalis pedis pulse present and normal capillary refill and motor-sensory exam light-touch normal in all toes; no edema Objective Data Vital Signs Vital Signs: Vital Signs - 24 hr 05/14/22 11:23 05/14/22 14:29 05/14/22 14:45 Temperature 97.6 F 97.7 F Pulse Rate 98 91 91 Respiratory Rate 18 12 15 Blood Pressure 121/70 145/84 H 141/94 H Pulse Oximetry 100 100 100 Oxygen Delivery Room Air Room Air Room Air 05/14/22 15:00 05/14/22 12:04 05/14/22 15:15 Temperature Pulse Rate 90 103 H 88 Respiratory Rate 14 12 Blood Pressure 153/96 H 130/74 Pulse Oximetry 100 100 Oxygen Delivery Room Air Room Air 05/14/22 16:10 05/14/22 16:25 05/14/22 16:55 Temperature 97.1 F L 98.0 F 97.2 F L Pulse Rate 96 91 104 H Respiratory Rate 16 14 16 Blood Pressure 155/83 H 139/76 134/83 Pulse Oximetry 99 99 97 Oxygen Delivery 05/14/22 17:55 05/14/22 16:12 05/14/22 19:37 Temperature 97.5 F L 97.7 F Pulse Rate 100 96 104 H Respiratory Rate 16 18 Blood Pressure 143/79 H 131/84 Pulse Oximetry 95 93 Oxygen Delivery 05/14/22 20:00 05/14/22 20:00 05/14/22 23:24 Temperature 97.8 F Pulse Rate 104 H 105 H 119 H Respiratory Rate 18 20 Blood Pressure 120/80 Pulse Oximetry 93 98 Oxygen Delivery Room Air 05/15/22 00:00 05/15/22 03:47 05/15/22 04:00 Temperature 97.2 F L Pulse Rate 117 H 113 H 110 H Respiratory Rate 20 Blood Pressure 114/76 Pulse Oximetry 92 Oxygen Delivery 05/15/22 08:00 Temperature Pulse Rate 102 H Respiratory Rate Blood Pressure Pulse Oximetry Oxygen Delivery Intake/Output Intake/Output: Intake & Output 05/12/22 05/13/22 05/14/22 05/15/22 23:59 23:59 23:59 23:59 Intake Total 2100 1050 Output Total 300 250 Balance 1800 800 Meds/Results Medications: Active Medications Generic Name Dose Route Start Last Admin Trade Name Shaneq PRN Reason Stop Dose Admin Acetaminophen 650 mg 05/14/22 16:02 Acetaminophen 325 Mg Tablet PO Q6H PRN Mild Pain (1-3) or Fever Hydrocodone Bitart/Acetaminophen 1 tab 05/14/22 01:08 05/14/22 23:21 Hydrocodone/Acetaminophen (*Crx) 5-325 Mg Tablet PO 1 tab Q6H PRN Administration Pa
--- NOTE | 2022-05-15 10:12 | WPDANESPN ---
Anes - Prog Note Post-Op Date/Time: 05/15/22 10:12 Cardiovascular status: normal Respiratory status: normal Airway patency: baseline Mental status: baseline Post-Op hydration status: normal Vital Signs: Last Vital Signs Temp 36.2 C L 05/15/22 03:47 Pulse 102 H 05/15/22 08:00 Resp 20 05/15/22 03:47 BP 114/76 05/15/22 03:47 Pulse Ox 92 05/15/22 03:47 O2 Del Method Room Air 05/14/22 20:00 Pain Score (VAS): 09/11 I/O: Intake & Output 05/14/22 05/15/22 05/15/22 23:59 07:59 15:59 Intake Total 950 1050 Output Total 50 250 Balance 900 800 Laboratory Tests 05/15/22 05:40 05/15/22 05:40 05/15/22 05/15/22 05:40 05:40 WBC 20.7 H RBC 2.78 L Hgb 8.4 L D Hct 26.6 L MCV 95.7 MCH 30.2 MCHC 31.6 L RDW 14.0 Plt Count 225 MPV 10.9 H Immature Gran % (Auto) 0.7 H Neut % (Auto) 86.4 H Lymph % (Auto) 6.5 L [place] % (Auto) 6.0 Eos % (Auto) 0.1 Baso % (Auto) 0.3 Lymph # (Auto) 1.34 [place] # (Auto) 1.2 H Eos # (Auto) 0.0 Baso # (Auto) 0.1 Abs Immat Gran (auto) 0.14 H Absolute Neuts (auto) 17.8 H Absolute Nucleated RBC 0.0 Nucleated RBC % 0.0 Sodium 135 L Potassium 4.1 Chloride 102 Carbon Dioxide 27 Anion Gap 6 L BUN 29 H Creatinine 1.30 H Estim Creat Clear Calc 27 Estimated GFR 39 L Glucose 116 H Calcium 8.4 Total Bilirubin 1.0 AST 24 ALT 18 Alkaline Phosphatase 51 Total Protein 5.0 L Albumin 3.1 L Post-procedural complaints: none Patient Feedback: Patient satisfied with anesthetic care.
[2022-05-15] MEDS: HYDROcodone/acetaminophen (*CRX) 5-325 MG TABLET 1 TAB PO (10:49)
[2022-05-15] MEDS: PERFLUTREN LIPID MICROSPHERES 1.5 ML VIAL DILUTED TO 10 ML TOTAL VOLUME IV PUSH (12:58)
--- NOTE | 2022-05-15 12:58 | IVDEFINITY ---
Prior to administration of IV Definity the patient was educated on the risks and benefits of the imaging enhancing agent including potential adverse side effects. The patient verbalized understanding. Allergies were verified. No exclusion criteria were identified and at least one of the following inclusion criteria were met: 1) physician request, 2) patient technically difficult to image (per the [place] [employer] guidelines of two or more segments not discernable within the apical view), or 3) questionable left ventricular function. ?
[2022-05-15] MEDS: GABAPENTIN 300 MG CAPSULE 600 MG PO ×2 (14:15→17:00)
[2022-05-15] MEDS: ACETAMINOPHEN 500 MG TABLET 1000 MG PO ×2 (14:15→21:08)
[2022-05-15] MEDS: PANTOPRAZOLE 40 MG TABLET PO (17:00)
[2022-05-15] MEDS: DONEPEZIL HCL 5 MG TABLET PO (21:08)
[2022-05-16] VITALS (10 sets, daily range): BP systolic 111–133; BP diastolic 65–88; PULSE 97–142; RESP 18; TEMP 36.4–37; O2SAT 95–99; BMI 10.0
[2022-05-16] MEDS: MORPHINE SULFATE (*CRX) 2 MG/ML INJ IV PUSH ×2 (00:20→08:00)
[2022-05-16 05:48] LABS: Alanine Aminotransferase 13 U/L (6-35); Albumin Level 2.8 g/dL (3.5-5.1); Alkaline Phosphatase 62 U/L (38-126); Anion Gap 7 mmol/L (8-16); Aspartate Amino Transferase 28 U/L (14-36); Blood Urea Nitrogen 24 mg/dL (7-17); Calcium 8.4 mg/dL (8.4-10.2); Carbon Dioxide 28 mmol/L (22-30); Chloride 102 mmol/L (98-107); Estimated CRCL calculation 34 ml/min; Estimated Glomerular Filt Rate 53; Glucose 94 mg/dL (65-110); Potassium 4.1 mmol/L (3.4-5.0); Sodium 137 mmol/L (137-145)
[2022-05-16] MEDS: ACETAMINOPHEN 500 MG TABLET 1000 MG PO ×3 (05:51→20:48)
[2022-05-16] MEDS: LEVOTHYROXINE SODIUM 50 MCG TABLET PO (05:51)
--- NOTE | 2022-05-16 07:41 | PM.IMPN ---
Progress Note: A&P Assessment and Plan (1) Closed left hip fracture: Qualifiers: Encounter type: initial encounter Qualified Code(s): S72.002A - Fracture of unspecified part of neck of left femur, initial encounter for closed fracture Code(s): S72.002A - Fracture of unspecified part of neck of left femur, initial encounter for closed fracture Status: Acute Assessment and Plan: Imaging shows comminuted left femoral hip fracture following fall from ground level. Orthopedic surgery consulted and appreciate recommendations. Plan for OR today 05/14/22. 05/14/22 Georgie perioperative risk for LEXI score 0.4%. SR with incomplete right BBB & non-specific ST changes. Echo pending and will be done postop. preop troponin <0.012. LDL 79, HDL 42. A1c 5.6%. WBC 25, but likely secondary to fracture. UA without acute infection. 05/15/22 Continue pain control with scheduled tylenol 1000 mg Q8 hours, Tramadol 50 mg Q6 hours PRN, morphine 2 mg IV Q2 hours for breakthrough pain and ice pack PRN. Encourage cyclobenzaprine for back pain. Add lidoderm patch to lower back. Try to avoid narcotics. Resume home cymbalta, gabapentin, and cyclobenzaprin PRN DVT prophylaxis SCDs and fondaparinux Bowel prophylaxis: senna-plus 2 tabs BID and PRN miralax. Vitamin D 25-OH level 47.6 05/15/22 WBC 20, down from 25 on admission, likely secondary to fractures. UA negative and no respiratory complaints. H/h 8.4/26 today, preop . Monitor for acute bleeding. EBL 100 mL 05/16/22 Continue pain control with scheduled tylenol 1000 mg Q8 hours, Tramadol 50 mg Q6 hours PRN, morphine 2 mg IV Q2 hours for breakthrough pain and ice pack PRN. Try to avoid narcotics. Continue home cymbalta, gabapentin, and cyclobenzaprine PRN (2) Compression fracture of thoracic vertebra: Qualifiers: Encounter type: initial encounter Thoracic vertebra fracture level: T9 Qualified Code(s): S22.070A - Wedge compression fracture of T9-T10 vertebra, initial encounter for closed fracture Code(s): S22.000A - Wedge compression fracture of unspecified thoracic vertebra, initial encounter for closed fracture Status: Acute Assessment and Plan: CT thoracic spine with acute vs subacute burst fracture of T9 with 1/5 loss of height and retropulsion of bone 2 mm into central spinal canal, as well as chronic burst fracture of T12 with 1/5 loss of height and retropulsion of bone 2 mm into central spinal canal. Pain control as above. She reports taking prednisone for chronic back pain. Consult Neurosurgery for further evaluation. Unknown last DEXA scan. Family reports the patient may have been diagnosed with osteoporosis in the past, but do not know if she has received oral or injection therapy. She reports chronic lower back pain history and is currently on Cymbalta, cyclobenzaprine PRN, prednisone and gabapentin. Resumed all medications but prednisone postop. Non-surgical. Compression fracture brace for pain, while out of bed. Pain control as below. 05/16/22 Pain more pronounced to lower back today and worsened after therapy. Continue pain control with scheduled tylenol 1000 mg Q8 hours, Tramadol 50 mg Q6 hours PRN, morphine 2 mg IV Q2 hours for breakthrough pain and ice pack PRN. Encourage cyclobenzaprine for back pain. Add lidoderm patch to lower back. Continue home cymbalta and gabapentin. (3) Hypertension: Qualifiers: Hypertension type: primary hypertension Qualified Code(s): I10 - Essential (primary) hypertension Code(s): I10 - Essential (primary) hypertension Status: Acute Assessment and Plan: Chronic, stable, not currently on antihypertensives. No new medications needed at this time. (4) Hypothyroidism: Qualifiers: Hypothyroidism type: acquired Qualified Code(s): E03.9 - Hypothyroidism, unspecified Code(s): E03.9 - Hypothyroidism, unspecified Status: Chronic Assessm
--- NOTE | 2022-05-16 08:28 | PCOTNOTE ---
Attempted to see patient for evaluation, patient was crying and refused treatment at this time.
[2022-05-16] MEDS: ONDANSETRON INJ 4 MG/2 ML VIAL IV PUSH (09:48)
[2022-05-16] MEDS: FONDAPARINUX SODIUM 2.5 MG/0.5 ML SYRINGE SUB-Q (09:49)
[2022-05-16] MEDS: GABAPENTIN 300 MG CAPSULE 600 MG PO ×3 (09:50→17:49)
[2022-05-16] MEDS: FOLIC ACID 1 MG TABLET PO (09:50)
[2022-05-16] MEDS: DULoxetine HCL 60 MG CAPSULE.DR PO (09:50)
[2022-05-16] MEDS: EZETIMIBE 10 MG TABLET PO (09:50)
[2022-05-16] MEDS: SENNA/DOCUSATE SODIUM TABLET 2 TAB PO ×2 (09:50→17:49)
[2022-05-16] MEDS: CYANOCOBALAMIN 500 MCG TABLET PO (09:51)
[2022-05-16] MEDS: PANTOPRAZOLE 40 MG TABLET PO ×2 (09:51→17:49)
[2022-05-16] MEDS: FAMOTIDINE 20 MG TABLET PO ×2 (09:51→20:48)
[2022-05-16] MEDS: CYCLOBENZAPRINE HCL 10 MG TABLET PO ×2 (09:55→21:04)
[2022-05-16] MEDS: LIDOCAINE 5% PATCH 1 PATCH TRANSDERM (11:59)
[2022-05-16 12:54] LABS: Basophils Absolute Auto 0.1 K/mm3 (0.0-0.1); Basophils Percent Auto 0.3 % (0.2-1.2); Eosinophils Absolute Auto 0.1 K/mm3 (0-0.3); Eosinophils Percent Auto 0.5 % (0-4.4); Hematocrit 24.8 % (37.0-47.0); Immature Granulocyte Absolute 0.16 K/mm3 (0.00-0.031); Immature Granulocyte Percent A 0.9 % (0-0.5); Lymphocytes Absolute Auto 0.68 K/mm3 (0.9-3.2); Mean Corpuscular HGB Conc 32.3 g/dl (32-36); Mean Corpuscular Hemoglobin 30.4 pg (26-34); Mean Corpuscular Volume 94.3 fl (80-100); Mean Platelet Volume 10.7 fl (7.4-10.4); Monocytes Absolute Auto 1.1 K/mm3 (0.1-0.6); Monocytes Percent Auto 6.2 % (2.6-8.5); Neutrophils Absolute Auto 15.1 K/mm3 (1.3-6.7); Neutrophils Percent Auto 88.1 % (45.5-73.1); Platelet Count Result 221 k/mm3 (150-375); Red Blood Count 2.63 M/mm3 (4.2-5.4); Red Cell Distribution Width 14.4 % (11.5-14.5); White Blood Count 17.2 K/mm3 (4.5-10.0)
[2022-05-16 15:33] LABS: Add Urine Microscopic? YES; Appearance Urine Cloudy (Clear); Bacteria Urine Trace /hpf; Bilirubin Urine Negative (Negative); Blood Urine Negative (Negative); Color Urine Yellow (Yellow); Glucose Urine UA Negative (Negative); Ketones Urine Negative (Negative); Leukocyte Esterase Ur 2+ LEU/UL (Negative); Mucus Urine Rare /lpf; Nitrate Urine Negative (Negative); Protein Urine Negative (Negative); Specific Grav Ur 1.017 (1.001-1.035); Squamous Epithelial Cell Urine Rare /hpf (Few); Urobilinogen Urine Negative mg/dL (<2.0); WBC Urine 21-30 /hpf
[2022-05-16] MEDS: DONEPEZIL HCL 5 MG TABLET PO (20:47)
[2022-05-16] MEDS: traMADol HCL (*CRX) 50 MG TABLET PO (22:19)
[2022-05-17] VITALS (11 sets, daily range): BP systolic 119–139; BP diastolic 60–82; PULSE 88–119; RESP 15–20; TEMP 36.3–37.1; O2SAT 94–99; BMI 10.0
[2022-05-17] MEDS: ACETAMINOPHEN 500 MG TABLET 1000 MG PO ×3 (04:54→20:29)
[2022-05-17] MEDS: traMADol HCL (*CRX) 50 MG TABLET PO (04:55)
[2022-05-17] MEDS: LEVOTHYROXINE SODIUM 50 MCG TABLET PO (04:55)
[2022-05-17] MEDS: ONDANSETRON INJ 4 MG/2 ML VIAL IV PUSH ×2 (05:15→10:32)
[2022-05-17] MEDS: PANTOPRAZOLE 40 MG TABLET PO ×2 (08:29→17:18)
[2022-05-17] MEDS: CYCLOBENZAPRINE HCL 10 MG TABLET PO (08:29)
[2022-05-17] MEDS: EZETIMIBE 10 MG TABLET PO (08:29)
[2022-05-17] MEDS: DULoxetine HCL 60 MG CAPSULE.DR PO (08:29)
[2022-05-17] MEDS: CYANOCOBALAMIN 500 MCG TABLET PO (08:29)
[2022-05-17] MEDS: FAMOTIDINE 20 MG TABLET PO ×2 (08:29→20:29)
[2022-05-17] MEDS: SENNA/DOCUSATE SODIUM TABLET 2 TAB PO ×2 (08:29→17:18)
[2022-05-17] MEDS: FONDAPARINUX SODIUM 2.5 MG/0.5 ML SYRINGE SUB-Q (08:29)
[2022-05-17] MEDS: LIDOCAINE 5% PATCH 1 PATCH TRANSDERM (08:29)
[2022-05-17] MEDS: GABAPENTIN 300 MG CAPSULE 600 MG PO ×3 (08:29→17:18)
--- NOTE | 2022-05-17 08:29 | PM.PNORT ---
Progress Note: A&P Assessment and Plan (1) Closed intertrochanteric fracture of left hip: Qualifiers: Encounter type: subsequent encounter Fracture alignment: displaced Fracture healing: with routine healing Qualified Code(s): S72.142D - Displaced intertrochanteric fracture of left femur, subsequent encounter for closed fracture with routine healing Code(s): S72.142A - Displaced intertrochanteric fracture of left femur, initial encounter for closed fracture Status: Acute Assessment and Plan: Postoperative day 3 left hip trochanteric nail. PT/OT with weight-bearing as tolerated. Ok to ambulate with assistance. Disposition when medically cleared. Subjective Subjective Date/Time Seen: 05/17/22 08:29 Post Op day: 3 Principal diagnosis: LT hip fracture Interval history: Patient comfortable in bed. Oriented to self only. Exam Const: General: comfortable; No acute distress Neck: Neck: supple and nontender Resp: Effort & Inspection: normal respiratory effort and no audible wheezes Skin: General skin exam: no rashes or lesions noted Neuro: General: No confusion Cranial nerves: Yes Normal hearing present Extrem: General: capillary refill normal Right upper extremity: normal to inspection Left upper extremity: normal to inspection Right lower extremity: normal to inspection, hip/thigh Details: normal to inspection and normal ROM; no tenderness and no swelling, knee Details: no tenderness and no swelling, lower leg ( Negative Homans sign), ankle Details: normal ROM ( dorsiflexion and plantar flexion intact) and foot Details: vascular exam Details: dorsalis pedis pulse present and normal capillary refill, tendon exam Details: active flexion normal and active extension normal and motor-sensory exam Details: light-touch normal Location: in all toes; no edema Left lower extremity: normal to inspection, hip/thigh Details: other ( Dressing in place. Clean and dry. Muscles soft.), ankle Details: normal ROM and foot Details: vascular exam Details: dorsalis pedis pulse present and normal capillary refill and motor-sensory exam light-touch normal in all toes; no edema Objective Data Vital Signs Vital Signs: Vital Signs - 24 hr 05/16/22 09:50 05/16/22 12:00 05/16/22 12:32 Temperature 98.0 F Pulse Rate 101 H 107 H Respiratory Rate 18 Blood Pressure 133/88 Pulse Oximetry 99 98 Oxygen Delivery Room Air 05/16/22 16:00 05/16/22 19:38 05/16/22 20:00 Temperature 97.6 F Pulse Rate 97 107 H Respiratory Rate 18 Blood Pressure 125/65 Pulse Oximetry 95 Oxygen Delivery Room Air 05/16/22 20:00 05/17/22 00:00 05/17/22 03:57 Temperature 98.8 F Pulse Rate 110 H 92 98 Respiratory Rate 20 Blood Pressure 123/82 Pulse Oximetry 94 Oxygen Delivery 05/17/22 04:00 Temperature Pulse Rate 101 H Respiratory Rate Blood Pressure Pulse Oximetry Oxygen Delivery Intake/Output Intake/Output: Intake & Output 05/14/22 05/15/22 05/16/22 05/17/22 23:59 23:59 23:59 23:59 Intake Total 2100 1870 470 Output Total 581 402 7613 Balance 1800 1620 -880 Meds/Results Medications: Active Medications Generic Name Dose Route Start Last Admin Trade Name Freq PRN Reason Stop Dose Admin Acetaminophen 1,000 mg 05/15/22 14:00 05/17/22 04:54 Acetaminophen 500 Mg Tablet PO 1,000 mg Q8HR CASANDRA Administration Bisacodyl 10 mg 05/14/22 16:02 Bisacodyl 10 Mg Suppository RECTAL DAILY PRN Constipation Cyanocobalamin 500 mcg 05/16/22 09:00 05/16/22 09:51 Cyanocobalamin 500 Mcg Tablet PO 500 mcg DAILY CASANDRA Administration Cyclobenzaprine HCl 10 mg 05/15/22 12:11 05/16/22 21:04 Cyclobenzaprine Hcl 10 Mg Tablet PO 10 mg Q8H PRN Administration Muscle Spasm Dicyclomine HCl 10 mg 05/15/22 12:11 Dicyclomine Hcl 10 Mg Capsule PO BID PRN IBS Donepezil HCl 5 mg 05/15/22 21:00 05/16/22 20:47 Donepez
[2022-05-17] MEDS: FOLIC ACID 1 MG TABLET PO (09:30)
[2022-05-17 11:26] LABS: Basophils Percent Auto 0.2 % (0.2-1.2); Eosinophils Absolute Auto 0.1 K/mm3 (0-0.3); Eosinophils Percent Auto 0.5 % (0-4.4); Hematocrit 24.4 % (37.0-47.0); Immature Granulocyte Absolute 0.11 K/mm3 (0.00-0.031); Immature Granulocyte Percent A 0.7 % (0-0.5); Lymphocytes Absolute Auto 0.94 K/mm3 (0.9-3.2); Lymphocytes Percent Auto 5.7 % (18.3-44.2); Mean Corpuscular HGB Conc 32.8 g/dl (32-36); Mean Corpuscular Hemoglobin 30.8 pg (26-34); Mean Corpuscular Volume 93.8 fl (80-100); Mean Platelet Volume 10.1 fl (7.4-10.4); Monocytes Absolute Auto 0.9 K/mm3 (0.1-0.6); Monocytes Percent Auto 5.5 % (2.6-8.5); Neutrophils Absolute Auto 14.4 K/mm3 (1.3-6.7); Neutrophils Percent Auto 87.4 % (45.5-73.1); Nucleated Red Blood Cells Perc 0.1 % (0.0-0.2); Platelet Count Result 320 k/mm3 (150-375); Red Cell Distribution Width 14.6 % (11.5-14.5); White Blood Count 16.5 K/mm3 (4.5-10.0)
[2022-05-17 11:52] LABS: Anion Gap 8 mmol/L (8-16); Blood Urea Nitrogen 23 mg/dL (7-17); Calcium 8.7 mg/dL (8.4-10.2); Carbon Dioxide 25 mmol/L (22-30); Chloride 102 mmol/L (98-107); Estimated CRCL calculation 34 ml/min; Estimated Glomerular Filt Rate 53; Glucose 91 mg/dL (65-110); Sodium 135 mmol/L (137-145)
--- NOTE | 2022-05-17 14:01 | PM.IMPN ---
Progress Note: A&P Assessment and Plan (1) Closed left hip fracture: Qualifiers: Encounter type: initial encounter Qualified Code(s): S72.002A - Fracture of unspecified part of neck of left femur, initial encounter for closed fracture Code(s): S72.002A - Fracture of unspecified part of neck of left femur, initial encounter for closed fracture Status: Acute Assessment and Plan: Imaging shows comminuted left femoral hip fracture following fall from ground level. Orthopedic surgery consulted and appreciate recommendations. Plan for OR today 05/14/22. 05/14/22 Georgie perioperative risk for LEXI score 0.4%. SR with incomplete right BBB & non-specific ST changes. Echo pending and will be done postop. preop troponin <0.012. LDL 79, HDL 42. A1c 5.6%. WBC 25, but likely secondary to fracture. UA without acute infection. 05/15/22 Continue pain control with scheduled tylenol 1000 mg Q8 hours, Tramadol 50 mg Q6 hours PRN, morphine 2 mg IV Q2 hours for breakthrough pain and ice pack PRN. Encourage cyclobenzaprine for back pain. Add lidoderm patch to lower back. Try to avoid narcotics. Resume home cymbalta, gabapentin, and cyclobenzaprine PRN DVT prophylaxis SCDs and fondaparinux Bowel prophylaxis: senna-plus 2 tabs BID and PRN miralax. Vitamin D 25-OH level 47.6 05/15/22 WBC 20, down from 25 on admission, likely secondary to fractures. UA negative and no respiratory complaints. H/h 8.4/26 today, preop . Monitor for acute bleeding. EBL 100 mL 05/16/22 Continue pain control with scheduled tylenol 1000 mg Q8 hours, Tramadol 50 mg Q6 hours PRN, morphine 2 mg IV Q2 hours for breakthrough pain and ice pack PRN. Try to avoid narcotics. Continue home cymbalta, gabapentin, and cyclobenzaprine PRN 05/17/22 continue pain control regimen as above. H/H 8.0/24.4, stable from yesterday. Start slow-release iron tablet x 6-8 weeks. (2) Compression fracture of thoracic vertebra: Qualifiers: Encounter type: initial encounter Thoracic vertebra fracture level: T9 Qualified Code(s): S22.070A - Wedge compression fracture of T9-T10 vertebra, initial encounter for closed fracture Code(s): S22.000A - Wedge compression fracture of unspecified thoracic vertebra, initial encounter for closed fracture Status: Acute Assessment and Plan: CT thoracic spine with acute vs subacute burst fracture of T9 with 1/5 loss of height and retropulsion of bone 2 mm into central spinal canal, as well as chronic burst fracture of T12 with 1/5 loss of height and retropulsion of bone 2 mm into central spinal canal. Pain control as above. She reports taking prednisone for chronic back pain. Consult Neurosurgery for further evaluation. Unknown last DEXA scan. Family reports the patient may have been diagnosed with osteoporosis in the past, but do not know if she has received oral or injection therapy. She reports chronic lower back pain history and is currently on Cymbalta, cyclobenzaprine PRN, prednisone and gabapentin. Resumed all medications but prednisone postop. Non-surgical. Compression fracture brace for pain, while out of bed. Pain control as below. 05/16/22 Pain more pronounced to lower back today and worsened after therapy. Continue pain control with scheduled tylenol 1000 mg Q8 hours, Tramadol 50 mg Q6 hours PRN, morphine 2 mg IV Q2 hours for breakthrough pain and ice pack PRN. Encourage cyclobenzaprine for back pain. Add lidoderm patch to lower back. Continue home cymbalta and gabapentin. 05/17/22 as above (3) Hypertension: Qualifiers: Hypertension type: primary hypertension Qualified Code(s): I10 - Essential (primary) hypertension Code(s): I10 - Essential (primary) hypertension Status: Chronic Assessment and Plan: Chronic, stable, not currently on antihypertensives. No new medications needed at this time. (4) Hypothyroidism: Qualifiers: Hypothyroidism type:
[2022-05-17] MEDS: DONEPEZIL HCL 5 MG TABLET PO (20:29)
[2022-05-18] VITALS (10 sets, daily range): BP systolic 101–147; BP diastolic 68–87; PULSE 92–120; RESP 14–18; TEMP 36.4–37.1; O2SAT 94–99
[2022-05-18] MEDS: ONDANSETRON INJ 4 MG/2 ML VIAL IV PUSH (01:28)
[2022-05-18] MEDS: ACETAMINOPHEN 500 MG TABLET 1000 MG PO ×3 (05:10→20:42)
[2022-05-18] MEDS: LEVOTHYROXINE SODIUM 50 MCG TABLET PO (05:10)
--- NOTE | 2022-05-18 07:49 | PM.IMPN ---
Progress Note: A&P Assessment and Plan (1) Closed left hip fracture: Qualifiers: Encounter type: initial encounter Qualified Code(s): S72.002A - Fracture of unspecified part of neck of left femur, initial encounter for closed fracture Code(s): S72.002A - Fracture of unspecified part of neck of left femur, initial encounter for closed fracture Status: Acute Assessment and Plan: Imaging shows comminuted left femoral hip fracture following fall from ground level. Orthopedic surgery consulted and appreciate recommendations. Plan for OR today 05/14/22. 05/14/22 Georgie perioperative risk for LEXI score 0.4%. SR with incomplete right BBB & non-specific ST changes. Echo pending and will be done postop. preop troponin <0.012. LDL 79, HDL 42. A1c 5.6%. WBC 25, but likely secondary to fracture. UA without acute infection. 05/15/22 Continue pain control with scheduled tylenol 1000 mg Q8 hours, Tramadol 50 mg Q6 hours PRN, morphine 2 mg IV Q2 hours for breakthrough pain and ice pack PRN. Encourage cyclobenzaprine for back pain. Add lidoderm patch to lower back. Try to avoid narcotics. Resume home cymbalta, gabapentin, and cyclobenzaprine PRN DVT prophylaxis SCDs and fondaparinux Bowel prophylaxis: senna-plus 2 tabs BID and PRN miralax. Vitamin D 25-OH level 47.6 05/15/22 WBC 20, down from 25 on admission, likely secondary to fractures. UA negative and no respiratory complaints. H/h 8.4/26 today, preop . Monitor for acute bleeding. EBL 100 mL 05/16/22 Continue pain control with scheduled tylenol 1000 mg Q8 hours, Tramadol 50 mg Q6 hours PRN, morphine 2 mg IV Q2 hours for breakthrough pain and ice pack PRN. Try to avoid narcotics. Continue home cymbalta, gabapentin, and cyclobenzaprine PRN 05/17/22 continue pain control regimen as above. H/H 8.0/24.4, stable from yesterday. Start slow-release iron tablet x 6-8 weeks. 05/18/22 POD 4. Working with therapy. Pain appears controlled with current regimen. No constipation. (2) Compression fracture of thoracic vertebra: Qualifiers: Encounter type: initial encounter Thoracic vertebra fracture level: T9 Qualified Code(s): S22.070A - Wedge compression fracture of T9-T10 vertebra, initial encounter for closed fracture Code(s): S22.000A - Wedge compression fracture of unspecified thoracic vertebra, initial encounter for closed fracture Status: Acute Assessment and Plan: CT thoracic spine with acute vs subacute burst fracture of T9 with 1/5 loss of height and retropulsion of bone 2 mm into central spinal canal, as well as chronic burst fracture of T12 with 1/5 loss of height and retropulsion of bone 2 mm into central spinal canal. Pain control as above. She reports taking prednisone for chronic back pain. Consult Neurosurgery for further evaluation. Unknown last DEXA scan. Family reports the patient may have been diagnosed with osteoporosis in the past, but do not know if she has received oral or injection therapy. She reports chronic lower back pain history and is currently on Cymbalta, cyclobenzaprine PRN, prednisone and gabapentin. Resumed all medications but prednisone postop. Non-surgical. Compression fracture brace for pain, while out of bed. Pain control as below. 05/16/22 Pain more pronounced to lower back today and worsened after therapy. Continue pain control with scheduled tylenol 1000 mg Q8 hours, Tramadol 50 mg Q6 hours PRN, morphine 2 mg IV Q2 hours for breakthrough pain and ice pack PRN. Encourage cyclobenzaprine for back pain. Add lidoderm patch to lower back. Continue home cymbalta and gabapentin. 05/17/22 as above 05/18/22 Stable. continue current management (3) Hypertension: Qualifiers: Hypertension type: primary hypertension Qualified Code(s): I10 - Essential (primary) hypertension Code(s): I10 - Essential (primary) hypertension Status: Chronic Assessment and Plan: Chronic, stable, no
[2022-05-18] MEDS: GABAPENTIN 300 MG CAPSULE 600 MG PO ×3 (08:56→17:25)
[2022-05-18] MEDS: CEFDINIR 300 MG CAPSULE PO ×2 (08:56→20:42)
[2022-05-18] MEDS: FAMOTIDINE 20 MG TABLET PO ×2 (08:56→20:42)
[2022-05-18] MEDS: EZETIMIBE 10 MG TABLET PO (08:56)
[2022-05-18] MEDS: SENNA/DOCUSATE SODIUM TABLET 2 TAB PO (08:56)
[2022-05-18] MEDS: FOLIC ACID 1 MG TABLET PO (08:56)
[2022-05-18] MEDS: DULoxetine HCL 60 MG CAPSULE.DR PO (08:56)
[2022-05-18] MEDS: CYANOCOBALAMIN 1,000 MCG TABLET 1000 MCG PO (08:56)
[2022-05-18] MEDS: LIDOCAINE 5% PATCH 1 PATCH TRANSDERM (08:57)
[2022-05-18] MEDS: FONDAPARINUX SODIUM 2.5 MG/0.5 ML SYRINGE SUB-Q (08:57)
[2022-05-18] MEDS: PANTOPRAZOLE 40 MG TABLET PO ×2 (08:57→17:25)
[2022-05-18] MEDS: CYCLOBENZAPRINE HCL 10 MG TABLET PO ×2 (12:19→23:41)
[2022-05-18] MEDS: FERROUS SULFATE DRIED 142 MG TABCR PO (13:48)
--- NOTE | 2022-05-18 15:10 | PM.PNORT ---
Progress Note: A&P Assessment and Plan (1) Closed intertrochanteric fracture of left hip: Qualifiers: Encounter type: subsequent encounter Fracture alignment: displaced Fracture healing: with routine healing Qualified Code(s): S72.142D - Displaced intertrochanteric fracture of left femur, subsequent encounter for closed fracture with routine healing Code(s): S72.142A - Displaced intertrochanteric fracture of left femur, initial encounter for closed fracture Status: Acute Assessment and Plan: Postoperative day 4 left hip trochanteric nail. More alert today. Difficulty with ambulating secondary to brace fitting. PT/OT with weight-bearing as tolerated. Ok to ambulate with assistance. Disposition when medically cleared. Subjective Subjective Date/Time Seen: 05/18/22 15:10 Post Op day: 4 Principal diagnosis: LT hip fracture Interval history: Patient comfortable in bed. sitting up with therapy. Attempting to stand. Oriented to self and place. Exam Const: General: comfortable; No acute distress or confusion Orientation/consciousness: No confusion HENMT: Head: normal to inspection, normocephalic and atraumatic Eyes: Conjunctivae: conjunctivae normal Sclera: sclerae normal Neck: Neck: supple and nontender Chest: Chest palpation & inspection: normal inspection of the chest Resp: Effort & Inspection: normal respiratory effort and no audible wheezes Cardio: Rate: regular rate Rhythm: regular rhythm : General: Yes deferred Skin: General skin exam: no rashes or lesions noted Neuro: General: No confusion Cranial nerves: Yes Normal hearing present Extrem: General: capillary refill normal Right upper extremity: normal to inspection Left upper extremity: normal to inspection Right lower extremity: normal to inspection, hip/thigh Details: normal to inspection and normal ROM; no tenderness and no swelling, knee Details: no tenderness and no swelling, lower leg ( Negative Homans sign), ankle Details: normal ROM ( dorsiflexion and plantar flexion intact) and foot Details: vascular exam Details: dorsalis pedis pulse present and normal capillary refill, tendon exam Details: active flexion normal and active extension normal and motor-sensory exam Details: light-touch normal Location: in all toes; no edema Left lower extremity: normal to inspection, hip/thigh Details: other ( Dressing in place. Clean and dry. Muscles soft.), ankle Details: normal ROM and foot Details: vascular exam Details: dorsalis pedis pulse present and normal capillary refill and motor-sensory exam light-touch normal in all toes; no edema Psych: Affect: normal affect Objective Data Vital Signs Vital Signs: Vital Signs - 24 hr 05/17/22 16:00 05/17/22 18:04 05/17/22 20:49 Temperature 98.0 F 97.6 F Pulse Rate 106 H 97 90 Respiratory Rate 19 16 Blood Pressure 127/77 127/60 Pulse Oximetry 96 95 Oxygen Delivery 05/17/22 20:00 05/17/22 20:00 05/18/22 00:00 Temperature Pulse Rate 90 93 Respiratory Rate Blood Pressure Pulse Oximetry Oxygen Delivery Room Air 05/18/22 04:00 05/18/22 06:01 05/18/22 08:00 Temperature 97.6 F Pulse Rate 96 92 Respiratory Rate 14 Blood Pressure 147/84 H Pulse Oximetry 94 Oxygen Delivery Room Air 05/18/22 08:00 05/18/22 14:05 Temperature 98.8 F Pulse Rate 114 H 108 H Respiratory Rate 18 Blood Pressure 101/68 Pulse Oximetry 99 Oxygen Delivery Intake/Output Intake/Output: Intake & Output 05/15/22 05/16/22 05/17/22 05/18/22 23:59 23:59 23:59 23:59 Intake Total 1870 470 570 540 Output Total 250 1350 Balance 1620 -880 570 540 Meds/Results Medications: Active Medications Generic Name Dose Route Start Last Admin Trade Name Freq PRN Reason Stop Dose Admin Acetaminophen 1,000 mg 05/15/22 14:00 05/18/22 13:48 Acetaminophen 500 Mg Tablet PO 1,000 mg Q8HR CASANDRA Administration Bisacodyl 10 mg
[2022-05-18] MEDS: DONEPEZIL HCL 5 MG TABLET PO (20:42)
[2022-05-18] MEDS: METOPROLOL TARTRATE 12.5 MG TABLET PO (20:42)
[2022-05-19] VITALS (13 sets, daily range): BP systolic 123–151; BP diastolic 75–91; PULSE 84–110; RESP 14–18; TEMP 36.4–37.2; O2SAT 93–98
[2022-05-19] MEDS: ACETAMINOPHEN 500 MG TABLET 1000 MG PO ×3 (05:19→20:15)
[2022-05-19] MEDS: LEVOTHYROXINE SODIUM 50 MCG TABLET PO (05:19)
[2022-05-19 07:49] LABS: Hematocrit 23.7 % (37.0-47.0); Hemoglobin 7.3 g/dL (12.0-15.0); Mean Corpuscular HGB Conc 30.8 g/dl (32-36); Mean Corpuscular Hemoglobin 29.6 pg (26-34); Mean Platelet Volume 9.6 fl (7.4-10.4); Platelet Count Result 345 k/mm3 (150-375); Red Blood Count 2.47 M/mm3 (4.2-5.4); Red Cell Distribution Width 14.6 % (11.5-14.5); White Blood Count 8.1 K/mm3 (4.5-10.0)
[2022-05-19 08:03] LABS: Anion Gap 5 mmol/L (8-16); Blood Urea Nitrogen 20 mg/dL (7-17); Calcium 8.6 mg/dL (8.4-10.2); Carbon Dioxide 28 mmol/L (22-30); Chloride 105 mmol/L (98-107); Estimated CRCL calculation 42 ml/min; Estimated Glomerular Filt Rate > 60; Glucose 94 mg/dL (65-110); Potassium 4.3 mmol/L (3.4-5.0); Sodium 138 mmol/L (137-145)
--- NOTE | 2022-05-19 08:25 | PM.PNORT ---
Progress Note: A&P Assessment and Plan (1) Closed intertrochanteric fracture of left hip: Qualifiers: Encounter type: subsequent encounter Fracture alignment: displaced Fracture healing: with routine healing Qualified Code(s): S72.142D - Displaced intertrochanteric fracture of left femur, subsequent encounter for closed fracture with routine healing Code(s): S72.142A - Displaced intertrochanteric fracture of left femur, initial encounter for closed fracture Status: Acute Assessment and Plan: Postoperative day 5 left hip trochanteric nail. More alert today. Oriented. White count back to normal PT/OT with weight-bearing as tolerated. Ok to ambulate with assistance. Disposition when medically cleared. Subjective Subjective Date/Time Seen: 05/19/22 08:25 Post Op day: 5 Principal diagnosis: LT hip IT fx Interval history: 81yo woman, pod #5 lt hip IM nail. More awake/ alert today. Up in bed. Pain better. Exam Const: General: comfortable; No acute distress Neck: Neck: supple and nontender Resp: Effort & Inspection: normal respiratory effort and no audible wheezes Extrem: General: capillary refill normal Right upper extremity: normal to inspection Left upper extremity: normal to inspection Right lower extremity: normal to inspection, hip/thigh Details: normal to inspection and normal ROM; no tenderness and no swelling, knee Details: no tenderness and no swelling, lower leg ( Negative Homans sign), ankle Details: normal ROM ( dorsiflexion and plantar flexion intact) and foot Details: vascular exam Details: dorsalis pedis pulse present and normal capillary refill, tendon exam Details: active flexion normal and active extension normal and motor-sensory exam Details: light-touch normal Location: in all toes; no edema Left lower extremity: normal to inspection, hip/thigh Details: other ( Dressing in place. Clean and dry. Muscles soft.), ankle Details: normal ROM and foot Details: vascular exam Details: dorsalis pedis pulse present and normal capillary refill and motor-sensory exam light-touch normal in all toes; no edema Psych: Affect: normal affect Objective Data Vital Signs Vital Signs: Vital Signs - 24 hr 05/18/22 14:05 05/18/22 16:00 05/18/22 12:00 Temperature 98.8 F 98.7 F Pulse Rate 108 H 99 120 H Respiratory Rate 18 16 Blood Pressure 101/68 127/72 Pulse Oximetry 99 96 Oxygen Delivery 05/18/22 16:00 05/18/22 20:42 05/18/22 22:52 Temperature 97.6 F Pulse Rate 108 H 97 96 Respiratory Rate 14 Blood Pressure 129/87 Pulse Oximetry 95 Oxygen Delivery 05/18/22 20:00 05/18/22 20:00 05/19/22 00:00 Temperature Pulse Rate 92 89 Respiratory Rate Blood Pressure Pulse Oximetry Oxygen Delivery Room Air 05/19/22 04:00 05/19/22 06:47 05/19/22 08:00 Temperature 97.6 F Pulse Rate 85 88 84 Respiratory Rate 14 Blood Pressure 123/88 Pulse Oximetry 94 Oxygen Delivery 05/19/22 08:00 Temperature 97.6 F Pulse Rate 85 Respiratory Rate 14 Blood Pressure 132/75 Pulse Oximetry 97 Oxygen Delivery Intake/Output Intake/Output: Intake & Output 05/16/22 05/17/22 05/18/22 05/19/22 23:59 23:59 23:59 23:59 Intake Total 727 612 4524 200 Output Total 1350 800 Balance -880 570 430 200 Meds/Results Medications: Active Medications Generic Name Dose Route Start Last Admin Trade Name Freq PRN Reason Stop Dose Admin Acetaminophen 1,000 mg 05/15/22 14:00 05/19/22 05:19 Acetaminophen 500 Mg Tablet PO 1,000 mg Q8HR CASANDRA Administration Bisacodyl 10 mg 05/14/22 16:02 Bisacodyl 10 Mg Suppository RECTAL DAILY PRN Constipation Cefdinir 300 mg 05/18/22 09:00 05/18/22 20:42 Cefdinir 300 Mg Capsule PO 05/23/22 08:59 300 mg Q12HR CASANDRA Administration Cyanocobalamin 1,000 mcg 05/18/22 09:00 05/18/22 08:56 Cyanocobalamin 1,000 Mcg Tablet PO 1,000 mcg QAM CASANDRA Administration Cycl
[2022-05-19] MEDS: CYANOCOBALAMIN 1,000 MCG TABLET 1000 MCG PO (08:56)
[2022-05-19] MEDS: CEFDINIR 300 MG CAPSULE PO ×2 (08:56→20:15)
[2022-05-19] MEDS: FONDAPARINUX SODIUM 2.5 MG/0.5 ML SYRINGE SUB-Q (08:57)
[2022-05-19] MEDS: EZETIMIBE 10 MG TABLET PO (08:57)
[2022-05-19] MEDS: DULoxetine HCL 60 MG CAPSULE.DR PO (08:57)
[2022-05-19] MEDS: FAMOTIDINE 20 MG TABLET PO ×2 (08:57→20:16)
[2022-05-19] MEDS: GABAPENTIN 300 MG CAPSULE 600 MG PO ×3 (08:57→16:16)
[2022-05-19] MEDS: FOLIC ACID 1 MG TABLET PO (08:57)
[2022-05-19] MEDS: SENNA/DOCUSATE SODIUM TABLET 2 TAB PO ×2 (08:57→16:16)
[2022-05-19] MEDS: PANTOPRAZOLE 40 MG TABLET PO ×2 (08:58→16:16)
[2022-05-19] MEDS: METOPROLOL TARTRATE 12.5 MG TABLET PO (08:58)
--- NOTE | 2022-05-19 09:44 | PCOTNOTE ---
Patient just got back to bed with nursing, declined therapy right now. Requested therapist attempt OT session later. Will continue plan of care.
[2022-05-19 12:57] LABS: Hemoglobin 7.6 g/dL (12.0-15.0)
[2022-05-19] MEDS: FERROUS SULFATE DRIED 142 MG TABCR PO (13:13)
--- NOTE | 2022-05-19 13:35 | PCPTNOTE ---
Patient refused treatment this session due to patient just working with OT and reported she needed a rest break before working with PT.
[2022-05-19 15:00] LABS: Hematocrit 23.6 % (37.0-47.0); Hemoglobin 7.3 g/dL (12.0-15.0)
--- NOTE | 2022-05-19 15:21 | PCPTNOTE ---
Attempted to see patient for PT, however patient waiting to receive blood transfusion.
--- NOTE | 2022-05-19 16:18 | PM.IMPN ---
Progress Note: A&P Assessment and Plan (1) Closed left hip fracture: Qualifiers: Encounter type: initial encounter Qualified Code(s): S72.002A - Fracture of unspecified part of neck of left femur, initial encounter for closed fracture Code(s): S72.002A - Fracture of unspecified part of neck of left femur, initial encounter for closed fracture Status: Acute Assessment and Plan: Imaging shows comminuted left femoral hip fracture following fall from ground level. Orthopedic surgery consulted and appreciate recommendations. Plan for OR today 05/14/22. 05/14/22 Georgie perioperative risk for LEXI score 0.4%. SR with incomplete right BBB & non-specific ST changes. Echo pending and will be done postop. preop troponin <0.012. LDL 79, HDL 42. A1c 5.6%. WBC 25, but likely secondary to fracture. UA without acute infection. 05/15/22 Continue pain control with scheduled tylenol 1000 mg Q8 hours, Tramadol 50 mg Q6 hours PRN, morphine 2 mg IV Q2 hours for breakthrough pain and ice pack PRN. Encourage cyclobenzaprine for back pain. Add lidoderm patch to lower back. Try to avoid narcotics. Resume home cymbalta, gabapentin, and cyclobenzaprine PRN DVT prophylaxis SCDs and fondaparinux Bowel prophylaxis: senna-plus 2 tabs BID and PRN miralax. Vitamin D 25-OH level 47.6 05/15/22 WBC 20, down from 25 on admission, likely secondary to fractures. UA negative and no respiratory complaints. H/h 8.4/26 today, preop . Monitor for acute bleeding. EBL 100 mL 05/16/22 Continue pain control with scheduled tylenol 1000 mg Q8 hours, Tramadol 50 mg Q6 hours PRN, morphine 2 mg IV Q2 hours for breakthrough pain and ice pack PRN. Try to avoid narcotics. Continue home cymbalta, gabapentin, and cyclobenzaprine PRN 05/17/22 continue pain control regimen as above. H/H 8.0/24.4, stable from yesterday. Start slow-release iron tablet x 6-8 weeks. 05/18/22 POD 4. Working with therapy. Pain appears controlled with current regimen. No constipation. 05/19/22 POD5 hemoglobin 7.3, hematocrit 23.6. No S/ S bleeding at surgical site but ecchymosis is noted. Left thigh is soft and mildly tender to palpation, dressing has scant serous drainage. Given patient c/o symptoms as described above, will transfuse 1 unit PRBCs and reassess symptoms in the morning. A repeat H&H this evening post transfusion and in the morning. Iron supplement daily. Continue pain control regimen. (2) Compression fracture of thoracic vertebra: Qualifiers: Encounter type: initial encounter Thoracic vertebra fracture level: T9 Qualified Code(s): S22.070A - Wedge compression fracture of T9-T10 vertebra, initial encounter for closed fracture Code(s): S22.000A - Wedge compression fracture of unspecified thoracic vertebra, initial encounter for closed fracture Status: Acute Assessment and Plan: CT thoracic spine with acute vs subacute burst fracture of T9 with 1/5 loss of height and retropulsion of bone 2 mm into central spinal canal, as well as chronic burst fracture of T12 with 1/5 loss of height and retropulsion of bone 2 mm into central spinal canal. Pain control as above. She reports taking prednisone for chronic back pain. Consult Neurosurgery for further evaluation. Unknown last DEXA scan. Family reports the patient may have been diagnosed with osteoporosis in the past, but do not know if she has received oral or injection therapy. She reports chronic lower back pain history and is currently on Cymbalta, cyclobenzaprine PRN, prednisone and gabapentin. Resumed all medications but prednisone postop. Non-surgical. Compression fracture brace for pain, while out of bed. Pain control as below. 05/16/22 Pain more pronounced to lower back today and worsened after therapy. Continue pain control with scheduled tylenol 1000 mg Q8 hours, Tramadol 50 mg Q6 hours PRN, morphine 2 mg IV Q2 hours for breakthrough pain and ice pack PRN. Encourage cyclobenzaprine for b
[2022-05-19] MEDS: SODIUM CHLORIDE 0.9% IV 250 ML 30 ML IV CONT (16:47)
[2022-05-19] MEDS: METOPROLOL TARTRATE 25 MG TABLET PO (20:16)
[2022-05-19] MEDS: DONEPEZIL HCL 5 MG TABLET PO (20:16)
[2022-05-20] VITALS (8 sets, daily range): BP systolic 124–153; BP diastolic 67–94; PULSE 80–102; RESP 16; TEMP 36.6–36.8; O2SAT 97–100
[2022-05-20 05:45] LABS: Hematocrit 35.5 % (37.0-47.0); Hemoglobin 11.2 g/dL (12.0-15.0); Mean Corpuscular HGB Conc 31.5 g/dl (32-36); Mean Corpuscular Hemoglobin 29.5 pg (26-34); Mean Corpuscular Volume 93.4 fl (80-100); Mean Platelet Volume 9.9 fl (7.4-10.4); Platelet Count Result 379 k/mm3 (150-375); Red Cell Distribution Width 17.6 % (11.5-14.5)
[2022-05-20] MEDS: LEVOTHYROXINE SODIUM 50 MCG TABLET PO (05:47)
[2022-05-20] MEDS: ACETAMINOPHEN 500 MG TABLET 1000 MG PO ×2 (05:48→13:19)
[2022-05-20] MEDS: CEFDINIR 300 MG CAPSULE PO (08:28)
[2022-05-20] MEDS: EZETIMIBE 10 MG TABLET PO (08:28)
[2022-05-20] MEDS: METOPROLOL TARTRATE 25 MG TABLET PO (08:28)
[2022-05-20] MEDS: FAMOTIDINE 20 MG TABLET PO (08:28)
[2022-05-20] MEDS: CYANOCOBALAMIN 1,000 MCG TABLET 1000 MCG PO (08:28)
[2022-05-20] MEDS: DULoxetine HCL 60 MG CAPSULE.DR PO (08:28)
[2022-05-20] MEDS: GABAPENTIN 300 MG CAPSULE 600 MG PO ×3 (08:28→18:16)
[2022-05-20] MEDS: PANTOPRAZOLE 40 MG TABLET PO ×2 (08:28→18:16)
[2022-05-20] MEDS: FOLIC ACID 1 MG TABLET PO (08:28)
[2022-05-20] MEDS: SENNA/DOCUSATE SODIUM TABLET 2 TAB PO ×2 (08:28→18:16)
--- NOTE | 2022-05-20 08:39 | PCPTNOTE ---
Attempted to see patient for PT at this time, however patient refused. Patient initially agreed to work with therapy and then refused to participate in any activity. Patient reported she is not working with therapy until her kids get here. Patient seemed more confused and agitated. RN aware.
[2022-05-20] MEDS: LORazepam (*CRX) 0.5 MG TABLET PO (08:43)
--- NOTE | 2022-05-20 08:55 | PCOTNOTE ---
Per RN, patient more confused this date. Patient given ativan as well and refused PT. Will try to see patient later for OT and continue plan of care.
[2022-05-20 09:29] LABS: Anion Gap 10 mmol/L (8-16); Blood Urea Nitrogen 13 mg/dL (7-17); Calcium 9.1 mg/dL (8.4-10.2); Carbon Dioxide 25 mmol/L (22-30); Chloride 99 mmol/L (98-107); Estimated CRCL calculation 55 ml/min; Estimated Glomerular Filt Rate > 60; Glucose 113 mg/dL (65-110); Potassium 4.1 mmol/L (3.4-5.0); Sodium 134 mmol/L (137-145)
[2022-05-20] MEDS: FERROUS SULFATE DRIED 142 MG TABCR PO (13:19)
--- NOTE | 2022-05-20 15:02 | P.PNIM_ITS ---
Progress Note: A&P Assessment and Plan (1) Closed left hip fracture: Qualifiers: Encounter type: initial encounter Qualified Code(s): S72.002A - Fracture of unspecified part of neck of left femur, initial encounter for closed fracture Code(s): S72.002A - Fracture of unspecified part of neck of left femur, initial encounter for closed fracture Status: Acute Assessment and Plan: Imaging shows comminuted left femoral hip fracture following fall from ground level. * Patient has been seen in consultation by Orthopedic surgery * Underwent left hip trochanteric nail on 05/14/[address] Ochoa. tolerated procedure wellN * DVT prophylaxis SCDs and fondaparinux * supportive care. Analgesics available as needed. Limit narcotics to avoid confusion. * Continue PT/OT * will need SNF placement following discharge (2) Postoperative anemia: Code(s): D64.9 - Anemia, unspecified Status: Acute Assessment and Plan: hemoglobin 12 preoperatively, declined to 7.3 postoperatively * s/p 1 unit packed RBC transfusion on 05/19 * hemoglobin 11.2 following transfusion * no evidence of bleeding * continue iron supplementation (3) Altered mental status: Code(s): R41.82 - Altered mental status, unspecified Status: Acute Assessment and Plan: At baseline pt is A&Ox4 but forgetful. Had increased confusion postop with improvement over the past 1-2 days. Now with increased confusion again, family c oncerned as pt is A&Ox2 today and having difficulty identifying family members * reportedly patient was up all night, making calls to family. Family reports patient hearing kids and music in the hospital. * may be hospital induced delirium * patient does have history of dementia, less likely to be progression. Continue home donepezil * limit narcotics to avoid confusion * TSH, B12, folate, electrolytes within normal limits * will repeat head CT to rule out any acute changes * may be related to sleep disturbance. Patient was up all night and now more confused today. Melatonin at bedtime * recheck CXR and UA to rule out acute infectious process. * consider neurology consultation if above workup unrevealing and no improvement in symptoms (4) Compression fracture of thoracic vertebra: Qualifiers: Encounter type: initial encounter Thoracic vertebra fracture level: T9 Qualified Code(s): S22.070A - Wedge compression fracture of T9-T10 vertebra, initial encounter for closed fracture Code(s): S22.000A - Wedge compression fracture of unspecified thoracic vertebra, initial encounter for closed fracture Status: Acute Assessment and Plan: CT thoracic spine with acute vs subacute burst fracture of T9 with 1/5 loss of height and retropulsion of bone 2 mm into central spinal canal, as well as seo manager francis burst fracture of T12 with 1/5 loss of height and retropulsion of bone 2 mm into central spinal canal. * patient seen in consultation by Neurosurgery. No surgical intervention at this time. * Will need brace when out of bed and with activity for pain control * continue with analgesics and muscle relaxer as needed * will need outpatient DEXA scan (5) Hypertension: Qualifiers: Hypertension type: primary hypertension Qualified Code(s): I10 - Essential (primary) hypertension Code(s): I10 - Essential (primary) hypertension Status: Chronic Assessment and Plan: blood pressures reviewed and have been stable. Last BP 150/70 * continue metoprolol tartrate 25 mg b.i.d. * monit
--- NOTE | 2022-05-20 15:02 | PM.IMPN ---
Progress Note: A&P Assessment and Plan (1) Closed left hip fracture: Qualifiers: Encounter type: initial encounter Qualified Code(s): S72.002A - Fracture of unspecified part of neck of left femur, initial encounter for closed fracture Code(s): S72.002A - Fracture of unspecified part of neck of left femur, initial encounter for closed fracture Status: Acute Assessment and Plan: Imaging shows comminuted left femoral hip fracture following fall from ground level. Patient has been seen in consultation by Orthopedic surgery Underwent left hip trochanteric nail on 05/14/[address] Ochoa. tolerated procedure wellN DVT prophylaxis SCDs and fondaparinux supportive care. Analgesics available as needed. Limit narcotics to avoid confusion. Continue PT/OT will need SNF placement following discharge (2) Postoperative anemia: Code(s): D64.9 - Anemia, unspecified Status: Acute Assessment and Plan: hemoglobin 12 preoperatively, declined to 7.3 postoperatively s/p 1 unit packed RBC transfusion on 05/19 hemoglobin 11.2 following transfusion no evidence of bleeding continue iron supplementation (3) Altered mental status: Code(s): R41.82 - Altered mental status, unspecified Status: Acute Assessment and Plan: At baseline pt is A&Ox4 but forgetful. Had increased confusion postop with improvement over the past 1-2 days. Now with increased confusion again, family concerned as pt is A&Ox2 today and having difficulty identifying family members reportedly patient was up all night, making calls to family. Family reports patient hearing kids and music in the hospital. may be hospital induced delirium patient does have history of dementia, less likely to be progression. Continue home donepezil limit narcotics to avoid confusion TSH, B12, folate, electrolytes within normal limits will repeat head CT to rule out any acute changes may be related to sleep disturbance. Patient was up all night and now more confused today. Melatonin at bedtime recheck CXR and UA to rule out acute infectious process. consider neurology consultation if above workup unrevealing and no improvement in symptoms (4) Compression fracture of thoracic vertebra: Qualifiers: Encounter type: initial encounter Thoracic vertebra fracture level: T9 Qualified Code(s): S22.070A - Wedge compression fracture of T9-T10 vertebra, initial encounter for closed fracture Code(s): S22.000A - Wedge compression fracture of unspecified thoracic vertebra, initial encounter for closed fracture Status: Acute Assessment and Plan: CT thoracic spine with acute vs subacute burst fracture of T9 with 1/5 loss of height and retropulsion of bone 2 mm into central spinal canal, as well as chronic burst fracture of T12 with 1/5 loss of height and retropulsion of bone 2 mm into central spinal canal. patient seen in consultation by Neurosurgery. No surgical intervention at this time. Will need brace when out of bed and with activity for pain control continue with analgesics and muscle relaxer as needed will need outpatient DEXA scan (5) Hypertension: Qualifiers: Hypertension type: primary hypertension Qualified Code(s): I10 - Essential (primary) hypertension Code(s): I10 - Essential (primary) hypertension Status: Chronic Assessment and Plan: blood pressures reviewed and have been stable. Last BP 150/70 continue metoprolol tartrate 25 mg b.i.d. monitor BP trends (6) Hypothyroidism: Qualifiers: Hypothyroidism type: acquired Qualified Code(s): E03.9 - Hypothyroidism, unspecified Code(s): E03.9 - Hypothyroidism, unspecified Status: Chronic Assessment and Plan: TSH is within normal limits continue home levothyroxine (7) Chronic kidney disease: Qualifiers: Chronic kidne
--- NOTE | 2022-05-20 16:53 | PC.NURSE ---
Patient increasingly confused and agitated since yesterday afternoon. Worsened overnight after not sleeping at all. Pt's daughter called at 07:45 in concern that something is wrong with her mother and would like answers as well as something to calm her mother down and make her not so upset . RN gave daughter current patient update and then called JUSTUS Bauman to inform her of new findings and family's request. JUSTUS stated she would look at pt's chart and go from there. Ativan ordered shortly after, pt's family continued to ask for additional interventions throughout the day, informed them the hospitalist would be up soon to speak with them.
[2022-05-21] VITALS (8 sets, daily range): BP systolic 129–144; BP diastolic 73–93; PULSE 71–107; RESP 16; TEMP 36.7–37.3; O2SAT 93–99; BMI 26.4
[2022-05-21] MEDS: DONEPEZIL HCL 5 MG TABLET PO (00:14)
[2022-05-21] MEDS: CEFDINIR 300 MG CAPSULE PO ×2 (00:14→08:29)
[2022-05-21] MEDS: METOPROLOL TARTRATE 25 MG TABLET PO ×2 (00:14→08:29)
[2022-05-21] MEDS: FAMOTIDINE 20 MG TABLET PO ×2 (00:14→08:29)
[2022-05-21] MEDS: MELATONIN 5 MG TABLET PO (00:16)
[2022-05-21] MEDS: ACETAMINOPHEN 500 MG TABLET 1000 MG PO ×3 (00:16→13:26)
[2022-05-21 06:09] LABS: Hematocrit 27.9 % (37.0-47.0); Hemoglobin 8.9 g/dL (12.0-15.0); Mean Corpuscular HGB Conc 31.9 g/dl (32-36); Mean Corpuscular Hemoglobin 29.3 pg (26-34); Mean Corpuscular Volume 91.8 fl (80-100); Mean Platelet Volume 9.6 fl (7.4-10.4); Platelet Count Result 394 k/mm3 (150-375); Red Blood Count 3.04 M/mm3 (4.2-5.4); Red Cell Distribution Width 17.6 % (11.5-14.5); White Blood Count 7.7 K/mm3 (4.5-10.0)
[2022-05-21 06:26] LABS: Anion Gap 8 mmol/L (8-16); Blood Urea Nitrogen 18 mg/dL (7-17); Calcium 8.1 mg/dL (8.4-10.2); Carbon Dioxide 26 mmol/L (22-30); Chloride 99 mmol/L (98-107); Estimated CRCL calculation 48 ml/min; Estimated Glomerular Filt Rate > 60; Glucose 109 mg/dL (65-110); Potassium 3.9 mmol/L (3.4-5.0); Sodium 133 mmol/L (137-145)
[2022-05-21] MEDS: LEVOTHYROXINE SODIUM 50 MCG TABLET PO (07:33)
[2022-05-21] MEDS: DULoxetine HCL 60 MG CAPSULE.DR PO (08:29)
[2022-05-21] MEDS: LIDOCAINE 5% PATCH 1 PATCH TRANSDERM (08:30)
[2022-05-21] MEDS: EZETIMIBE 10 MG TABLET PO (08:30)
[2022-05-21] MEDS: PANTOPRAZOLE 40 MG TABLET PO (08:30)
[2022-05-21] MEDS: FOLIC ACID 1 MG TABLET PO (08:30)
[2022-05-21] MEDS: CYANOCOBALAMIN 1,000 MCG TABLET 1000 MCG PO (08:30)
[2022-05-21] MEDS: FONDAPARINUX SODIUM 2.5 MG/0.5 ML SYRINGE SUB-Q (08:31)
[2022-05-21] MEDS: GABAPENTIN 300 MG CAPSULE 600 MG PO ×2 (08:31→13:26)
[2022-05-21 08:46] LABS: Add Urine Microscopic? YES; Appearance Urine Clear (Clear); Bacteria Urine Trace /hpf; Bilirubin Urine Negative (Negative); Blood Urine Negative (Negative); Color Urine Yellow (Yellow); Glucose Urine UA Negative (Negative); Ketones Urine Trace mg/dL (Negative); Leukocyte Esterase Ur Negative LEU/UL (Negative); Nitrate Urine Negative (Negative); Protein Urine Negative (Negative); RBC Urine 0-2 /hpf (0-2); Specific Grav Ur 1.017 (1.001-1.035); Squamous Epithelial Cell Urine Few /hpf (Few); Transitional Epi Cells Urine Rare /hpf (None Seen); Urobilinogen Urine Negative mg/dL (<2.0); WBC Urine 0-3 /hpf
--- NOTE | 2022-05-21 11:58 | P.DS_ITS ---
DS: Admitting Diagnosis Discharge Date 05/27/2022 Admitting Diagnosis Left hip fracture DS: Discharge Diagnosis Discharge Diagnosis (1) Closed left hip fracture: Qualifiers: Encounter type: initial encounter Qualified Code(s): S72.002A - Fracture of unspecified part of neck of left femur, initial encounter for closed fracture Code(s): S72.002A - Fracture of unspecified part of neck of left femur, initial encounter for closed fracture Status: Acute Assessment and Plan: Imaging shows comminuted left femoral hip fracture following fall from ground level. * Patient seen in consultation by Orthopedic surgery * Underwent left hip trochanteric nail on 05/14/[address] Ochoa. tolerated procedure well * DVT prophylaxis fondaparinux x28 days postop per Orthopedic surgery * Supportive care. Analgesics available as needed. Limit narcotics to avoid confusion. * Continue PT/OT at [facility] * Outpatient follow-up with orthopedic surgery (2) Postoperative anemia: Code(s): D64.9 - Anemia, unspecified Status: Acute Assessment and Plan: hemoglobin 12 preoperatively, declined to 7.3 postoperatively * s/p 1 unit packed RBC transfusion on 05/19 * hemoglobin stable following transfusion * no evidence of active bleeding * continue iron supplementation (3) Altered mental status: Code(s): R41.82 - Altered mental status, unspecified Status: Resolved Assessment and Plan: Resolved. At baseline pt is A&Ox4 but forgetful. Had increased confusion postoperatively * May be hospital induced delirium vs due to affects of anesthesia * Limit narcotics to avoid confusion * TSH, B12, folate, electrolytes within normal limits * Head CT repeated with onset of confusion which revealed stable nonspecific white matter disease with no acute findings * May be related to sleep disturbance. It seems pt got days and nights mixed up and was up throughout the nights. Melatonin given at bedtime. * Repeat UA not concerning for infection. * Mental status returned to baseline * Patient does have history of dementia and will continue donepezil (4) Compression fracture of thoracic vertebra: Qualifiers: Encounter type: initial encounter Thoracic vertebra fracture level: T9 Qualified Code(s): S22.070A - Wedge compression fracture of T9-T10 vertebra, initial encounter for closed fracture Code(s): S22.000A - Wedge compression fracture of unspecified thoracic vertebra, initial encounter for closed fracture Status: Acute Assessment and Plan: CT thoracic spine with acute vs subacute burst fracture of T9 with 1/5 loss of height and retropulsion of bone 2 mm into central spinal canal, as well as drag out man francis burst fracture of T12 with 1/5 loss of height and retropulsion of bone 2 mm into central spinal canal. * patient seen in consultation by Neurosurgery. No surgical intervention at this time. * Will need brace when out of bed and with activity for pain control * continue with analgesics and muscle relaxer as needed * will need outpatient DEXA scan' * can follow up with Neurosurgery if any issues arise (5) Hypertension: Qualifiers: Hypertension type: primary hypertension Qualified Code(s): I10 - Essential (primary) hypertension Code(s): I10 - Essential (primary) hypertension Status: Chronic Assessment and Plan: blood pressures reviewed and were stable. * continue metoprolol tartrate 25 mg b.i.d. (6) Hypothyroidism: Qualifiers: Hypothyroidism
--- NOTE | 2022-05-21 11:58 | PM.DS ---
DS: Admitting Diagnosis Discharge Date 05/27/2022 Admitting Diagnosis Left hip fracture DS: Discharge Diagnosis Discharge Diagnosis (1) Closed left hip fracture: Qualifiers: Encounter type: initial encounter Qualified Code(s): S72.002A - Fracture of unspecified part of neck of left femur, initial encounter for closed fracture Code(s): S72.002A - Fracture of unspecified part of neck of left femur, initial encounter for closed fracture Status: Acute Assessment and Plan: Imaging shows comminuted left femoral hip fracture following fall from ground level. Patient seen in consultation by Orthopedic surgery Underwent left hip trochanteric nail on 05/14/[address] Ochoa. tolerated procedure well DVT prophylaxis fondaparinux x28 days postop per Orthopedic surgery Supportive care. Analgesics available as needed. Limit narcotics to avoid confusion. Continue PT/OT at [facility] Outpatient follow-up with orthopedic surgery (2) Postoperative anemia: Code(s): D64.9 - Anemia, unspecified Status: Acute Assessment and Plan: hemoglobin 12 preoperatively, declined to 7.3 postoperatively s/p 1 unit packed RBC transfusion on 05/19 hemoglobin stable following transfusion no evidence of active bleeding continue iron supplementation (3) Altered mental status: Code(s): R41.82 - Altered mental status, unspecified Status: Resolved Assessment and Plan: Resolved. At baseline pt is A&Ox4 but forgetful. Had increased confusion postoperatively May be hospital induced delirium vs due to affects of anesthesia Limit narcotics to avoid confusion TSH, B12, folate, electrolytes within normal limits Head CT repeated with onset of confusion which revealed stable nonspecific white matter disease with no acute findings May be related to sleep disturbance. It seems pt got days and nights mixed up and was up throughout the nights. Melatonin given at bedtime. Repeat UA not concerning for infection. Mental status returned to baseline Patient does have history of dementia and will continue donepezil (4) Compression fracture of thoracic vertebra: Qualifiers: Encounter type: initial encounter Thoracic vertebra fracture level: T9 Qualified Code(s): S22.070A - Wedge compression fracture of T9-T10 vertebra, initial encounter for closed fracture Code(s): S22.000A - Wedge compression fracture of unspecified thoracic vertebra, initial encounter for closed fracture Status: Acute Assessment and Plan: CT thoracic spine with acute vs subacute burst fracture of T9 with 1/5 loss of height and retropulsion of bone 2 mm into central spinal canal, as well as chronic burst fracture of T12 with 1/5 loss of height and retropulsion of bone 2 mm into central spinal canal. patient seen in consultation by Neurosurgery. No surgical intervention at this time. Will need brace when out of bed and with activity for pain control continue with analgesics and muscle relaxer as needed will need outpatient DEXA scan' can follow up with Neurosurgery if any issues arise (5) Hypertension: Qualifiers: Hypertension type: primary hypertension Qualified Code(s): I10 - Essential (primary) hypertension Code(s): I10 - Essential (primary) hypertension Status: Chronic Assessment and Plan: blood pressures reviewed and were stable. continue metoprolol tartrate 25 mg b.i.d. (6) Hypothyroidism: Qualifiers: Hypothyroidism type: acquired Qualified Code(s): E03.9 - Hypothyroidism, unspecified Code(s): E03.9 - Hypothyroidism, unspecified Status: Chronic Assessment and Plan: TSH is within normal limits continue home levothyroxine (7) Chronic kidney disease: Qualifiers: Chronic kidney disease stage: stage 3 (moderate) Chronic kidney disease stage 3 subtype: stage 3a (GFR 45-59) Qual
[2022-05-21] MEDS: FERROUS SULFATE DRIED 142 MG TABCR PO (13:27)
[2022-05-21 13:49] LABS: EDCOVIDSCREEN Negative (Negative)
[2022-05-21] MEDS: traMADol HCL (*CRX) 50 MG TABLET PO (14:44)
--- NOTE | 2022-05-21 14:49 | PM.PNORT ---
Progress Note: A&P Assessment and Plan (1) Closed intertrochanteric fracture of left hip: Qualifiers: Encounter type: subsequent encounter Fracture alignment: displaced Fracture healing: with routine healing Qualified Code(s): S72.142D - Displaced intertrochanteric fracture of left femur, subsequent encounter for closed fracture with routine healing Code(s): S72.142A - Displaced intertrochanteric fracture of left femur, initial encounter for closed fracture Status: Acute Assessment and Plan: POD#7: Left hip trochanteric nail. More alert today. Oriented. White count back to normal PT/OT with weight-bearing as tolerated. Ok to ambulate with assistance. Disposition when medically cleared. Subjective Subjective Date/Time Seen: 05/21/22 14:49 Post Op day: 7 Principal diagnosis: LT hip IT fx Interval history: POD#Left hip IM nail. A&Ox3, answering questions appropriately. Mild lateral hip pain. Review of Systems Review of Systems: ROS unobtainable: Yes unobtainable due to mental status Exam Const: General: comfortable; No acute distress Neck: Neck: supple and nontender Resp: Effort & Inspection: normal respiratory effort and no audible wheezes Extrem: General: capillary refill normal Right upper extremity: normal to inspection Left upper extremity: normal to inspection Right lower extremity: normal to inspection, hip/thigh Details: normal to inspection and normal ROM; no tenderness and no swelling, knee Details: no tenderness and no swelling, lower leg ( Negative Homans sign), ankle Details: normal ROM ( dorsiflexion and plantar flexion intact) and foot Details: vascular exam Details: dorsalis pedis pulse present and normal capillary refill, tendon exam Details: active flexion normal and active extension normal and motor-sensory exam Details: light-touch normal Location: in all toes; no edema Left lower extremity: normal to inspection, hip/thigh Details: other ( Dressing in place. Clean and dry. Muscles soft.), ankle Details: normal ROM and foot Details: vascular exam Details: dorsalis pedis pulse present and normal capillary refill and motor-sensory exam light-touch normal in all toes; no edema Psych: Affect: normal affect Objective Data Vital Signs Vital Signs: Vital Signs - 24 hr 05/20/22 16:00 05/20/22 16:00 05/21/22 00:14 Temperature 36.7 C Pulse Rate 88 86 86 Respiratory Rate 16 Blood Pressure 124/67 Pulse Oximetry 97 Oxygen Delivery 05/21/22 00:00 05/20/22 23:40 05/20/22 23:40 Temperature 37.3 C Pulse Rate 89 87 Respiratory Rate 16 Blood Pressure 129/93 H Pulse Oximetry 93 Oxygen Delivery Room Air 05/21/22 00:00 05/21/22 04:00 05/21/22 08:28 Temperature Pulse Rate 107 H 78 85 Respiratory Rate 16 Blood Pressure 144/93 H Pulse Oximetry 99 Oxygen Delivery 05/21/22 08:29 05/21/22 08:00 05/21/22 08:00 Temperature Pulse Rate 85 84 Respiratory Rate Blood Pressure Pulse Oximetry Oxygen Delivery Room Air 05/21/22 12:00 Temperature Pulse Rate 71 Respiratory Rate Blood Pressure Pulse Oximetry Oxygen Delivery Intake/Output Intake/Output: Intake & Output 05/18/22 05/19/22 05/20/22 05/21/22 23:59 23:59 23:59 23:59 Intake Total 1230 1660 1570 630 Output Total 800 700 500 400 Balance 588 375 9687 230 Meds/Results Medications: Active Medications Generic Name Dose Route Start Last Admin Trade Name Freq PRN Reason Stop Dose Admin Acetaminophen 1,000 mg 05/15/22 14:00 05/21/22 13:26 Acetaminophen 500 Mg Tablet PO 1,000 mg Q8HR CASANDRA Administration Bisacodyl 10 mg 05/14/22 16:02 Bisacodyl 10 Mg Suppository RECTAL DAILY PRN Constipation Cefdinir 300 mg 05/18/22 09:00 05/21/22 08:29 Cefdinir 300 Mg Capsule PO 05/23/22 08:59 300 mg Q12HR CASANDRA Administration Cyanocobalamin 1,000 mcg 05/18/22 09:00 05/21/22 08:30 Cyanocobalamin 1
== END 2022-05-21 16:19 | DRG 481 ==
LOC: ANHED 05-14 01:16 → ANH2MED 05-14 02:23
PROVIDERS: Nurse Practitioner Family; Orthopaedic Surgery; Admitting Provider Internal Medicine; Emergency Provider Emergency Medicine; Visit Provider Physician Assistant
PROC: 0QS734Z Reposition Left Upper Femur with Internal Fixation Device, Percutaneous Approach (ICD-10-PCS; CPT 27245; principal; 2022-05-14 12:00)
DX: S72.142A Displaced intertrochanteric fracture of left femur, initial encounter for closed fracture (principal); N39.0 Urinary tract infection, site not specified; S22.070A Wedge compression fracture of T9-T10 vertebra, initial encounter for closed fracture; W18.30XA Fall on same level, unspecified, initial encounter; Z20.822 Contact with and (suspected) exposure to COVID-19; I12.9 Hypertensive chronic kidney disease with stage 1 through stage 4 chronic kidney disease, or unspecified chronic kidney disease; N18.31 Chronic kidney disease, stage 3a; E78.1 Pure hyperglyceridemia; R33.9 Retention of urine, unspecified; D64.89 Other specified anemias; R41.0 Disorientation, unspecified; I49.9 Cardiac arrhythmia, unspecified; E78.5 Hyperlipidemia, unspecified; E03.9 Hypothyroidism, unspecified; F03.90 Unspecified dementia, unspecified severity, without behavioral disturbance, psychotic disturbance, mood disturbance, and anxiety; K21.9 Gastro-esophageal reflux disease without esophagitis; Z90.49 Acquired absence of other specified parts of digestive tract; Z90.710 Acquired absence of both cervix and uterus
CPT/HCPCS: 36415; 36430; 70450; 71045; 71046; 72128; 72131; 73502; 80048; 80053; 80061; 81001; 82306; 82607; 82746; 83036; 84443; 84484; 85014; 85018; 85025; 85027; 85610; 85730; 86850; 86900; 86901; 86920; 87086; 87088; 87426; 93005; 96374; 96375; 97110; 97161; 97165; 97530; 97535; 99199; 99285; A9270; C1713; C8929; C9803; J0131; J0330; J0690; J0696; J1652; J2270; J2370; J2405; J2704; J2765; J3010; J3480; J7050; J7120; P9016; Q9957; U0003; U0005

== ENCOUNTER 2022-07-21 09:21 | Emergency (ER) | payer OTHER, SELFPAY ==
[2022-07-21 09:30] VITALS: BP 139/66; PULSE 100; RESP 16; TEMP 36.9; O2SAT 98
[2022-07-21 13:00] VITALS: BP 122/81; PULSE 91; RESP 16; O2SAT 99
--- NOTE | 2022-07-21 13:26 | PC.NURSE ---
no answer when called from waiting room
== END 2022-07-21 13:27 | disposition left against medical advice (07) ==
DX: R52 Pain, unspecified (principal)
CPT/HCPCS: 99199

== ENCOUNTER 2022-09-10 11:36 | Outpatient (CLI) | payer OTHER, SELFPAY ==
--- NOTE | ~2022-09-10 | XR_ITS ---
Thoracic spine: Clinical Indication: Compression fracture Correlation made with prior CT scan dated 05/14/2022. AP and lateral views were performed. Findings: There is severe compression fracture deformity of T9, with significant interval loss of hei ght as compared to prior CT scan dated 05/14/2022. Suspected mild compression deformity of T12, somew hat poorly delineated on this exam. The intervertebral disc spaces appear normal. Paravertebral soft tissues appear normal. Impression: Severe compression fracture of T9, with significant interval loss of height since 05/14/2022. Suspected mild compression deformity of T12. Reviewed, dictated and finalized at location . E BALANCER Impression: Severe compression fracture of T9, with significant interval loss of height sin ce 05/14/2022. Suspected mild compression deformity of T12.
== END 2022-09-10 11:37 | disposition home or self-care (01) ==
PROVIDERS: Visit Provider Nurse Practitioner Adult Health
DX: S22.000A Wedge compression fracture of unspecified thoracic vertebra, initial encounter for closed fracture (principal); T14.90XA Injury, unspecified, initial encounter
CPT/HCPCS: 72070

== ENCOUNTER 2022-12-03 09:44 | Inpatient (IN) | payer OTHER, SELFPAY ==
[2022-12-03] VITALS (9 sets, daily range): BP systolic 129–166; BP diastolic 73–96; PULSE 82–114; RESP 16–22; TEMP 36.4–37; O2SAT 92–97; BMI 25.3
--- NOTE | ~2022-12-03 | CT_ITS ---
EXAMINATION: CTA chest PE protocol DATE: 12/03/2022 11:18 INDICATION: Hemoptysis. TECHNIQUE: Computed tomography angiography (CTA) of the chest was performed with 100 mL Omnipaque-350 intravenous contrast timed to evaluate the pulmonary arteries. Coronal maximum intensity projection 3D-reconstructions were created by the technologist. Automated exposure control and iterative reconst ruction technique were employed. The dose-length product was 255.37 mGy-cm. COMPARISON: thoracic spine CT 05/14/22, radiographs 09/10/22 FINDINGS: There is mild dependent atelectasis bilaterally. There are groundglass opacities in right u pper lobe, right middle lobe, and right lower lobe centered at the bronchopulmonary interstitium. No pleural effusion. The heart size is normal. No pericardial effusion. There is a 2.2 cm nodule in left thyroid lobe. There is no pulmonary embolus. There is fluid in the esophagus. There is a small slidi ng hiatal hernia. There are are changes of gastric sleeve procedure. There is wall thickening of the distal esophagus. There is cortical thinning of the kidneys. 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 There are changes of cholecystectomy. There is a 9 mm cyst in the liver. There is thoracic dextroscoliosis. There are chronic burst fractures of T9 and T12. There is a burst fracture of L1 with less than 1/5 loss of height, likely subacute. IMPRESSION: 1. No pulmonary embolus. 2. Groundglass opacities in right lung, consistent with pulmonary edema versus pneumonia versus hemor rhage. 3. Wall thickening of the distal esophagus, consistent with esophagitis versus malignancy. Small slid ing hiatal hernia. 4. Left thyroid nodule. Consider ultrasound for risk stratification if clinically indicated given the patient's age. Reviewed, dictated and finalized at location A. IMPRESSION: 1. No pulmonary embolus. 2. Groundglass opacities in right lung, consistent with pulmonary edema versus pneumonia versus hemorrhage. 3. Wall thickening of the distal esophagus, consistent with esophagitis versus malignancy. Small sliding hiatal hernia. 4. Left thyroid nodule. Consider ultrasound for risk stratification if clinical ly indicated given the patient's age.
--- NOTE | ~2022-12-03 | CT_ITS ---
EXAMINATION: CT chest abdomen pelvis wo con DATE: 12/06/2022 18:52 INDICATION: Diarrhea. Fever. Hypoxia. TECHNIQUE: Computed tomography (CT) of the chest, abdomen, and pelvis was performed without intraveno us contrast. Automated exposure control and iterative reconstruction technique were employed. The dos e-length product was 933.92 mGy-cm. COMPARISON: Chest CT 12/03/2022, thyroid ultrasound 12/04/22 FINDINGS: CHEST CT: The lungs demonstrate mild atelectasis. There is mild emphysema. There are mild groundglass opacities in right upper lobe. No pleural effusion. The heart size is normal. There are coronary artery calcif ications. No pericardial effusion. There are changes of gastric sleeve procedure. Material in the dis camelia esophagus may be secondary to reflux or dysmotility. There is a small sliding hiatal hernia. Ther e is a 2.2 cm nodule in left thyroid lobe. There are chronic burst fractures of T12 and T9. ABDOMEN/PELVIS CT: There is a 9 mm cyst in the liver. Calcifications in the spleen are consistent with old granulomatous disease. There are changes of cholecystectomy. The pancreas and adrenal glands are normal. There is cortical thinning of the kidneys. There are changes of ablation of left kidney. There is a 6 mm cyst in right kidney. There is diverticulosis of the colon without evidence of diverticulitis. There are n o dilated loops of bowel. The appendix is not visualized. There is calcified atherosclerosis of the a claribel and many of the other arteries. There are no pathologically enlarged lymph nodes. There is no fr ee intraperitoneal fluid. There is a left inguinal hernia containing nonobstructed small bowel. There is a right inguinal hernia containing fat. There is internal fixation of left femur. There is thorac olumbar levoscoliosis and severe spondylosis.There is a chronic burst fracture of L3. Again seen is a compression fracture of L1 with less than 1/5 loss of height, likely subacute. IMPRESSION: 1. Improved mild groundglass opacities in right upper lobe, consistent with pulmonary edema versus pn eumonia versus hemorrhage. 2. Left inguinal hernia containing nonobstructed small bowel. 3. Small sliding hiatal hernia. 4. Left thyroid nodule. Consider ultrasound-guided fine-needle aspiration if clinically indicated giv en the patient's age. Reviewed, dictated and finalized at location A. IMPRESSION: 1. Improved mild groundglass opacities in right upper lobe, consistent with pul monary edema versus pneumonia versus hemorrhage. 2. Left inguinal hernia containing nonobstructed small bowel. 3. Small sliding hiatal hernia. 4. Left thyroid nodule. Consider ultrasound-guided fine-needle aspiration if cl inically indicated given the patient's age.
--- NOTE | ~2022-12-03 | US_ITS ---
EXAMINATION: US thyroid DATE: 12/04/2022 14:32 INDICATION: Thyroid nodule. TECHNIQUE: Multiple ultrasound images of the thyroid were obtained. COMPARISON: Chest CT 12/03/2022 FINDINGS: The right thyroid lobe measures 4.2 x 1.8 x 1.8 cm. The left thyroid lobe measures 4.8 x 3.1 x 2.2 c m. In the right thyroid lobe, there is a 5 mm solid, isoechoic, wider than tall nodule with smooth m argin without echogenic foci (TI-RADS TR3). In the left thyroid lobe, there is a 2.2 cm solid, hypoec hoic, wider than tall nodule with smooth margin without echogenic foci (TR4). IMPRESSION: 1. Thyroid nodules. Consider ultrasound-guided fine-needle aspiration of the left thyroid nodule if c linically indicated given the patient's age. Reviewed, dictated and finalized at location A. IMPRESSION: 1. Thyroid nodules. Consider ultrasound-guided fine-needle aspiration of the le ft thyroid nodule if clinically indicated given the patient's age.
--- NOTE | 2022-12-03 10:12 | ED.GIBLEED ---
HPI - GI Bleed General Chief complaint: GI Bleed Stated complaint: N/V BLACK EMESIS Time Seen by Provider: 12/03/22 10:12 Source: patient and family Mode of arrival: ambulatory Limitations: no limitations History of Present Illness HPI Narrative: Patient is an 82-year-old female with a history of hypertension, hyperlipidemia, hypothyroidism, anemia, chronic kidney disease presenting to the emergency department for evaluation of hemoptysis. Patient reports she has been cough with dark sputum, black in coloration. Patient denies any pain. Denies nausea, vomiting, abdominal pain. Denies chest pain, shortness of breath, lightheadedness or dizziness. No recent falls or injuries. Patient does not use any chronic anticoagulation. She reports some dark coloration to her stools. Patient denies any focal weakness or numbness. No recent illnesses. She reports sore throat last week that has resolved. She denies fever, chills, cough or chest pain. I reviewed the patient's previous ER visit in which I admitted the patient for a ground-level fall, hip fracture, patient was ultimately discharged home. Did complete a course of fondaparinux per ortho recommendations. Related Data Home Medications Medication Instructions Recorded Confirmed cyanocobalamin (vitamin B-12) 500 500 mcg PO DAILY 05/14/22 09/10/22 mcg tablet (Vitamin B-12) cyclobenzaprine 10 mg tablet 10 mg PO BID PRN Muscle Spasm 05/14/22 09/10/22 dicyclomine 10 mg capsule 10 mg PO BID PRN IBS 05/14/22 09/10/22 donepezil 5 mg tablet 5 mg PO HS 05/14/22 09/10/22 duloxetine 60 mg capsule,delayed 60 mg PO DAILY 05/14/22 09/10/22 release eszopiclone 3 mg tablet 3 mg PO HS 05/14/22 09/10/22 ezetimibe 10 mg tablet 10 mg PO DAILY 05/14/22 09/10/22 folic acid 1 mg tablet 1 mg PO DAILY 05/14/22 09/10/22 gabapentin 600 mg tablet 600 mg PO TID 05/14/22 09/10/22 levothyroxine 50 mcg tablet 50 mcg PO DAILY 05/14/22 09/10/22 pantoprazole 40 mg tablet,delayed 40 mg PO BID 05/14/22 09/10/22 release potassium chloride 20 mEq 50 meq PO DAILY 05/14/22 09/10/22 tablet,extended release Allergies Allergy/AdvReac Type Severity Reaction Status Date / Time diphenhydramine AdvReac Agitated Verified 12/03/22 09:45 [From Britton] Review of Systems Review of Systems: CONSTITUTIONAL: Denies fever, chills, or sweats. EYES: Denies visual changes, redness, or discharge. ENT: Denies rhinorrhea, congestion, sore throat, or otalgia. CARDIOVASCULAR: Denies chest pain, palpitations, or edema. RESPIRATORY: Reports mild cough with dark sputum GASTROINTESTINAL: Denies abdominal pain, nausea, vomiting, or diarrhea. GENITOURINARY: Denies dysuria or hematuria. SKIN: Denies rash or itching. MUSCULOSKELETAL: Denies back pain, joint pain, or myalgia. NEUROLOGIC: Denies headache, numbness, or weakness. [facility]LY [facility] Past Medical History Medical History (Updated 12/03/22 @ 13:13 by Deysi Dawn NP) Chronic kidney disease Closed intertrochanteric fracture of left hip Compression fracture of thoracic vertebra Encounter for postoperative care Hyperlipidemia Hypertension Hypothyroidism Surgical History Surgical History (Updated 12/03/22 @ 13:13 by Deysi Dawn NP) H/O: hysterectomy Hx of cholecystectomy S/P ORIF (open reduction internal fixation) fracture left hip Family History Family History (Updated 12/03/22 @ 13:15 by Deysi Dawn NP) Father Heart disease Mother Heart disease Sibling Heart disease Malignant neoplasm of prostate Other Unknown family medical history Social History Social History (Updated 12/03/22 @ 13:17 by Deysi Dawn NP) Social History: and has 4 children .retired from [employer] department. code full code Smoking status: Never smoker Alcohol intake: never Substance use: never Living arrangements: with family Gender identity (if verbalized by the patient): Female Spiritual care concerns: No Exam Jorge
[2022-12-03 10:47] LABS: Basophils Absolute Auto 0.1 K/mm3 (0.0-0.1); Basophils Percent Auto 0.3 % (0.2-1.2); Eosinophils Absolute Auto 0.3 K/mm3 (0-0.3); Eosinophils Percent Auto 1.7 % (0-4.4); Hematocrit 39.9 % (37.0-47.0); Hemoglobin 12.1 g/dL (12.0-15.0); Immature Granulocyte Percent A 0.6 % (0-0.5); Lymphocytes Percent Auto 6.9 % (18.3-44.2); Mean Corpuscular HGB Conc 30.3 g/dl (32-36); Mean Corpuscular Volume 85.6 fl (80-100); Mean Platelet Volume 9.5 fl (7.4-10.4); Monocytes Absolute Auto 0.7 K/mm3 (0.1-0.6); Monocytes Percent Auto 4.2 % (2.6-8.5); Neutrophils Absolute Auto 15.1 K/mm3 (1.3-6.7); Neutrophils Percent Auto 86.3 % (45.5-73.1); Platelet Count Result 420 k/mm3 (150-375); Red Blood Count 4.66 M/mm3 (4.2-5.4); Red Cell Distribution Width 17.1 % (11.5-14.5); White Blood Count 17.5 K/mm3 (4.5-10.0)
[2022-12-03 10:58] LABS: Prothrombin Time 13.1 Seconds (11.1-14.7)
[2022-12-03 11:01] LABS: Alanine Aminotransferase 21 U/L (6-35); Albumin Level 4.3 g/dL (3.5-5.1); Alkaline Phosphatase 76 U/L (38-126); Anion Gap 7 mmol/L (8-16); Aspartate Amino Transferase 28 U/L (14-36); Bilirubin,Total 0.8 mg/dL (0.2-1.3); Blood Urea Nitrogen 17 mg/dL (7-17); Calcium 9.5 mg/dL (8.4-10.2); Carbon Dioxide 30 mmol/L (22-30); Chloride 102 mmol/L (98-107); Estimated CRCL calculation 37 ml/min; Estimated Glomerular Filt Rate 60; Glucose 82 mg/dL (65-110); Sodium 139 mmol/L (137-145)
[2022-12-03 12:41] LABS: Lactic Acid Reflex 1.4 mmol/L (0.7-2.0)
--- NOTE | 2022-12-03 12:59 | ECG_ITS ---
Measurements Intervals [place] Rate: 101 P: 37 GA: 165 QRS: -20 QRSD: 97 T: 59 QT: 356 QTc: 463 Interpretive Statements SINUS TACHYCARDIA ATRIAL PREMATURE COMPLEXES INCOMPLETE RIGHT BUNDLE BRANCH BLOCK BORDERLINE ST-T WAVE ABNORMALITY- HIGH LATERAL LEADS BASELINE ARTIFACT- I, II, III BORDERLINE ECG COMPARED TO ECG 05/14/2022 00:48:21 SINUS TACHYCARDIA NOW PRESENT Electronically Signed On 12-03-2022 13:45:55 CDT by Rm Vee D.O.
[2022-12-03 13:03] LABS: Influenza A QL RT-PCR Negative (Negative); Influenza B QL RT-PCR Negative (Negative); RSV RNA, RT-PCR Negative (Negative); SARS-CoV-2 RNA PCR Negative (Negative)
--- NOTE | 2022-12-03 13:11 | PM.IMHP ---
H&P: HPI History of Present Illness Date/Time: 12/03/22 13:11 Chief Complaint: Coughing up blood Narrative: This is a 82-year-old female patient who was accompanied to the emergency room by her . She has a history of early dementia, hypertension, anemia, chronic kidney disease, and hyperlipidemia. The patient has been having a dry cough with dark sputum. Denies any discomfort. No nausea vomiting or diarrhea no abdominal pain. No shortness of breath no chest pain no lightheadedness and no dizziness. She is not on any anticoagulation. The patient had been discharged from this hospital on 05/11/2022 where she had a left trochanteric nail on 05/14/[address] Ochoa. She had been on DVT prophylaxis fondaparinux x28 days postop per Orthopedic surgery. She has not had any blood thinner since. Her white count is 17.5. Platelets are 420. Her H&H is normal. Potassium is 3.0. She was supplemented with potassium in the emergency room. Chest CTA was read as the following1. No pulmonary embolus. 2. Groundglass opacities in right lung, consistent with pulmonary edema versus pneumonia versus hemorrhage. 3. Wall thickening of the distal esophagus, consistent with esophagitis versus malignancy. Small sliding hiatal hernia. 4. Left thyroid nodule. Consider ultrasound for risk stratification if clinically indicated given the patient's age. The patient was started on azithromycin and Rocephin. The patient is being admitted to observation status on the date of service of 12/03/2022. Review of Systems Review of Systems: All systems reviewed & are unremarkable except as noted in HPI and below Constitutional: Constitutional: Reports as per HPI and Reports no additional constitutional complaints Eyes: Eyes: Reports as per HPI and Reports no additional eye complaints ENT: Reports system reviewed and no additional complaints, except as documented and Reports Normal hearing present Cardiovascular: Cardiovascular: Reports no additional cardiovascular complaints Respiratory: Respiratory: Reports no additional respiratory complaints and Reports no additional respiratory complaints Gastrointestinal: Gastrointestinal: Reports as per HPI and Reports no additional gastrointestinal complaints Musculoskeletal: Musculoskeletal: Reports no additional musculoskeletal complaints Integumentary/Breasts: Skin/Breast: Reports system reviewed and no additional complaints, except as docu and Reports as per HPI Neurologic: Reports system reviewed and no additional complaints, except as documented, Reports as per HPI and Reports Normal hearing present Psychiatric: Psychiatric: Reports no additional psychiatric complaints and Reports as per HPI Endocrine: Endocrine: Reports no additional endocrine complaints Hematologic/Lymphatic: Hematologic/Lymphatic: Reports no additional hematologic/lymphatic complaints Allergic/Immunologic: Allergic/Immunologic: Reports no additional allergic/immunologic complaints [facility] Past Medical History Medical History (Updated 12/03/22 @ 14:36 by Deysi Dawn NP) Anemia Chronic GERD Chronic kidney disease Closed intertrochanteric fracture of left hip Compression fracture of thoracic vertebra Dementia Encounter for postoperative care Hyperlipidemia Hypertension Hypothyroidism Surgical History Surgical History H/O: hysterectomy Hx of cholecystectomy S/P ORIF (open reduction internal fixation) fracture left hip Family History Family History (Updated 12/03/22 @ 14:12 by Deysi Dawn NP) Father Heart disease Mother Heart disease Sibling Heart disease Malignant neoplasm of prostate Social History Social History (Updated 12/03/22 @ 14:13 by Deysi Dawn NP) Social History: She is and has 4 children . 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 She does not use any alcohol marijuana or illicit drug. Her is th
[2022-12-03] MEDS: POTASSIUM CHLORIDE 20 MEQ PACKET (FOR LIQUID) 40 MEQ PO (13:46)
--- NOTE | 2022-12-03 14:02 | PC.NURSE ---
This patient, Malini Joe, was admitted to Medical Room 258-01. Patient/family oriented to hospital policies and general routines including ID bracelet, bed and alarms, visiting hours, pain management, procedures, bathroom and other care routines, personal items, smoking policy, room service/diet, and visiting hours. Information on how to activate the Rapid Response Team has been discussed. Patient/Family are encouraged to report perceived risks to care and to ask questions if they do not understand what they are told or what they should do.
[2022-12-03 14:52] LABS: Hematocrit 38.4 % (37.0-47.0); Hemoglobin 11.6 g/dL (12.0-15.0)
[2022-12-03] MEDS: PANTOPRAZOLE 40 MG TABLET PO (17:24)
[2022-12-03] MEDS: GABAPENTIN 300 MG CAPSULE 600 MG PO (17:24)
--- NOTE | 2022-12-03 19:23 | PHAR ---
PT'S HOME MED LUNESTA 3 MG TAB (ESZOPICLONE) VERIFIED BY PHARMACY
--- NOTE | 2022-12-03 19:27 | PC.NURSE ---
MARIANNE Simmons brought down to pharmacy to be verified. Medication verified by Pharmacist
[2022-12-03] MEDS: IPRATROPIUM BR 0.02% INH SOLN 0.5 MG/2.5 ML VIAL INHALATION (20:27)
[2022-12-03] MEDS: LEVALBUTEROL NEB 1.25 MG/3 ML 0.63 MG INHALATION (20:27)
[2022-12-03] MEDS: DONEPEZIL HCL 5 MG TABLET 10 MG PO (21:34)
[2022-12-03] MEDS: LOSARTAN POTASSIUM 50 MG TABLET PO (21:34)
[2022-12-03 22:01] LABS: Hematocrit 34.5 % (37.0-47.0); Hemoglobin 10.6 g/dL (12.0-15.0)
[2022-12-03 22:10] LABS: Anion Gap 4 mmol/L (8-16); Blood Urea Nitrogen 14 mg/dL (7-17); Calcium 8.8 mg/dL (8.4-10.2); Carbon Dioxide 29 mmol/L (22-30); Chloride 103 mmol/L (98-107); Estimated CRCL calculation 34 ml/min; Estimated Glomerular Filt Rate 53; Glucose 114 mg/dL (65-110); Potassium 3.5 mmol/L (3.4-5.0); Sodium 136 mmol/L (137-145)
[2022-12-04] VITALS (14 sets, daily range): BP systolic 122–150; BP diastolic 64–76; PULSE 70–110; RESP 14–18; TEMP 36.6–36.8; O2SAT 91–99
[2022-12-04 02:13] LABS: Hematocrit 34.5 % (37.0-47.0); Hemoglobin 10.4 g/dL (12.0-15.0)
[2022-12-04] MEDS: IPRATROPIUM BR 0.02% INH SOLN 0.5 MG/2.5 ML VIAL INHALATION ×4 (03:23→21:26)
[2022-12-04] MEDS: LEVALBUTEROL NEB 1.25 MG/3 ML 0.63 MG INHALATION ×4 (03:23→21:26)
[2022-12-04] MEDS: LEVOTHYROXINE SODIUM 50 MCG TABLET PO (05:31)
[2022-12-04 05:51] LABS: Basophils Absolute Auto 0.1 K/mm3 (0.0-0.1); Basophils Percent Auto 0.6 % (0.2-1.2); Eosinophils Absolute Auto 0.3 K/mm3 (0-0.3); Eosinophils Percent Auto 3.7 % (0-4.4); Hematocrit 35.5 % (37.0-47.0); Hemoglobin 10.8 g/dL (12.0-15.0); Immature Granulocyte Absolute 0.03 K/mm3 (0.00-0.031); Immature Granulocyte Percent A 0.4 % (0-0.5); Lymphocytes Percent Auto 18.3 % (18.3-44.2); Mean Corpuscular HGB Conc 30.4 g/dl (32-36); Mean Corpuscular Volume 85.5 fl (80-100); Mean Platelet Volume 9.5 fl (7.4-10.4); Monocytes Absolute Auto 0.7 K/mm3 (0.1-0.6); Monocytes Percent Auto 8.9 % (2.6-8.5); Neutrophils Absolute Auto 5.6 K/mm3 (1.3-6.7); Neutrophils Percent Auto 68.1 % (45.5-73.1); Platelet Count Result 351 k/mm3 (150-375); Red Blood Count 4.15 M/mm3 (4.2-5.4); Red Cell Distribution Width 17.2 % (11.5-14.5); White Blood Count 8.2 K/mm3 (4.5-10.0)
[2022-12-04 06:03] LABS: Alanine Aminotransferase 16 U/L (6-35); Albumin Level 3.5 g/dL (3.5-5.1); Alkaline Phosphatase 70 U/L (38-126); Anion Gap 7 mmol/L (8-16); Aspartate Amino Transferase 21 U/L (14-36); Bilirubin,Total 0.6 mg/dL (0.2-1.3); Blood Urea Nitrogen 13 mg/dL (7-17); Calcium 8.8 mg/dL (8.4-10.2); Carbon Dioxide 26 mmol/L (22-30); Chloride 105 mmol/L (98-107); Estimated CRCL calculation 37 ml/min; Estimated Glomerular Filt Rate 60; Glucose 81 mg/dL (65-110); Lactate Dehydrogenase 128 U/L (120-246); Magnesium 2.1 mg/dL (1.6-2.3); Potassium 3.3 mmol/L (3.4-5.0); Sodium 138 mmol/L (137-145)
[2022-12-04] MEDS: amLODIPine BESYLATE 5 MG TABLET PO (08:50)
[2022-12-04] MEDS: CYANOCOBALAMIN 1,000 MCG TABLET 1000 MCG PO (08:50)
[2022-12-04] MEDS: DULoxetine HCL 60 MG CAPSULE.DR PO (08:50)
[2022-12-04] MEDS: PANTOPRAZOLE 40 MG TABLET PO ×2 (08:51→17:46)
[2022-12-04] MEDS: GABAPENTIN 300 MG CAPSULE 600 MG PO ×3 (08:51→17:46)
[2022-12-04] MEDS: EZETIMIBE 10 MG TABLET PO (08:51)
[2022-12-04] MEDS: FOLIC ACID 1 MG TABLET PO (08:51)
[2022-12-04] MEDS: predniSONE 1 MG TABLET 4 MG PO (08:52)
[2022-12-04 08:57] LABS: Glucose Point of Care 101 mg/dl (65-105)
[2022-12-04 11:15] LABS: IFOB Positive Control Positive; Immunochemical Fecal Occult Bl Negative (N)
--- NOTE | 2022-12-04 11:39 | PM.IMPN ---
Progress Note: A&P Assessment and Plan (1) Pneumonia: Code(s): J18.9 - Pneumonia, unspecified organism Status: Acute Assessment and Plan: Continue with azithromycin + rocephin started / Continue with nebulizer treatments Tailor antibiotics according to cultures and sensitivities Sputum and blood cultures are pending (2) Hypokalemia: Code(s): E87.6 - Hypokalemia Status: Acute Assessment and Plan: Potassium was replaced Recheck BMP Check magnesium (3) Chronic GERD: Code(s): K21.9 - Gastro-esophageal reflux disease without esophagitis Status: Acute Assessment and Plan: Continue with pantoprazole (4) Anemia: Code(s): D64.9 - Anemia, unspecified Status: Acute Assessment and Plan: Monitor hemoglobin Continue with folic acid, B12 (5) Hypertension: Qualifiers: Hypertension type: primary hypertension Qualified Code(s): I10 - Essential (primary) hypertension Code(s): I10 - Essential (primary) hypertension Status: Chronic Assessment and Plan: Continue with Norvasc Continue with losartan (6) Hyperlipidemia: Qualifiers: Hyperlipidemia type: mixed hyperlipidemia Qualified Code(s): E78.2 - Mixed hyperlipidemia Code(s): E78.5 - Hyperlipidemia, unspecified Status: Chronic Assessment and Plan: Continue with Zetia (7) Chronic kidney disease: Qualifiers: Chronic kidney disease stage: stage 3 (moderate) Chronic kidney disease stage 3 subtype: stage 3a (GFR 45-59) Qualified Code(s): N18.31 - Chronic kidney disease, stage 3a Code(s): N18.9 - Chronic kidney disease, unspecified Status: Acute Assessment and Plan: Patient's BUN is 17 creatinine 0.90 estimated GFR 60 (8) Dementia: Code(s): F03.90 - Unspecified dementia, unspecified severity, without behavioral disturbance, psychotic disturbance, mood disturbance, and anxiety Status: Acute Assessment and Plan: Continue with Aricept (9) Hypothyroidism: Qualifiers: Hypothyroidism type: acquired Qualified Code(s): E03.9 - Hypothyroidism, unspecified Code(s): E03.9 - Hypothyroidism, unspecified Status: Chronic Assessment and Plan: Continue with levothyroxine and check thyroid level (10) Compression fracture of thoracic vertebra: Qualifiers: Encounter type: initial encounter Thoracic vertebra fracture level: T9 Qualified Code(s): S22.070A - Wedge compression fracture of T9-T10 vertebra, initial encounter for closed fracture Code(s): S22.000A - Wedge compression fracture of unspecified thoracic vertebra, initial encounter for closed fracture Status: Acute Assessment and Plan: Continue with gabapentin (11) Thyroid nodule: Code(s): E04.1 - Nontoxic single thyroid nodule Status: Acute Assessment and Plan: Check thyroid US, consider FNA (12) Esophagitis: Code(s): K20.90 - Esophagitis, unspecified without bleeding Status: Acute Assessment and Plan: Consult GI, may need EGD, concern for malignancy vs esophagitis other etiology Plan DVT prophylaxis with SCDs GI prophylaxis with PPI Code status full code Subjective Date/time seen: 12/04/22 11:39 Interval history: 82 year old female with history of GERD, kidney disease, dementia, hypothyroidism is presenting with productive cough and being treated for possible pneumonia. No overnight events noted. No chest pain or shortness of breath. No nausea, vomiting or diarrhea. No fevers or chills. Patient states she feels much better today than yesterday. Review of Systems Review of Systems: 12 point review of systems was assessed and was negative except as noted in the HPI Exam Narrative: General: No acute distress, alert and oriented per baseline JOSELITO
--- NOTE | 2022-12-04 15:25 | WPDGICN ---
Assessment and Plan Assessment and plan (1) Abnormal CT scan, esophagus: Code(s): R93.3 - Abnormal findings on diagnostic imaging of other parts of digestive tract Status: Acute Assessment and Plan: she has known history of gerd but never had egd had cough and diagnosed with pneumonia, CT scan showed thickening of esophagus- denies dysphagia or weight loss she will need EGD (if she stays the weekend we can do it on wednesday) diet as tolerated PPI daily (2) Chronic GERD: Code(s): K21.9 - Gastro-esophageal reflux disease without esophagitis Status: Acute (3) Pneumonia: Code(s): J18.9 - Pneumonia, unspecified organism Status: Acute Assessment and Plan: on antibiotic comfortable (4) Cough with hemoptysis: Code(s): R04.2 - Hemoptysis Status: Acute (5) Leukocytosis: Code(s): D72.829 - Elevated white blood cell count, unspecified Status: Acute Assessment and Plan: on abx GI Consult Note Consult date/time: 12/04/22 15:25 Reason for consult: cough, abnormal esophagus by ct scan HPI: Malini Joe is a 82 year old female with history of early dementia, hypertension, anemia, chronic kidney disease. she came here after dry cough with dark sputum for few days.?She also has GERD using protonix but denies nausea, abdominal pain, weight loss or dysphagia. Never had EGD. ER evaluation showed elevated white count 17.5.? Platelets are 420.?normal H&Hl.? Potassium is 3.0.? Chest CTA reviewed- No pulmonary embolus. Groundglass opacities in right lung, consistent with pulmonary edema versus pneumonia versus hemorrhage. Wall thickening of the distal esophagus, consistent with esophagitis versus malignancy. Small sliding hiatal hernia. Started on antibiotics and admitted. Review of Systems Constitutional: Constitutional: Denies chills Eyes: Eyes: Denies blurry vision ENT: Reports Normal hearing present Cardiovascular: Cardiovascular: Denies chest pain Respiratory: Respiratory: Reports cough Gastrointestinal: Gastrointestinal: Denies abdominal pain Genitourinary: Genitourinary: Denies hematuria Musculoskeletal: Musculoskeletal: Denies arthralgias Integumentary/Breasts: Skin/Breast: Denies rash Neurologic: Denies Abnormal speech present Psychiatric: Psychiatric: Denies behavioral changes [facility] Past Medical History Medical History (Updated 12/04/22 @ 15:28 by Sergey Harden MD) Abnormal CT scan, esophagus Anemia Chronic GERD Chronic kidney disease Closed intertrochanteric fracture of left hip Compression fracture of thoracic vertebra Dementia Encounter for postoperative care Hyperlipidemia Hypertension Hypothyroidism Surgical History Surgical History H/O: hysterectomy Hx of cholecystectomy S/P ORIF (open reduction internal fixation) fracture left hip Family History Family History (Updated 12/03/22 @ 14:12 by Deysi Dawn NP) Father Heart disease Mother Heart disease Sibling Heart disease Malignant neoplasm of prostate Social History Social History (Updated 12/03/22 @ 14:13 by Deysi Dawn NP) Social History: She is and has 4 children . 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 She does not use any alcohol marijuana or illicit drug. Her is the durable power civil litigation attorney for healthcare. code full code Smoking status: Never smoker Alcohol intake: never Substance use: never Lack of Transportation: No Lack of Food: Never True Current Housing: I Have Housing Concerned About Future Housing: No Difficulty Paying Gas/Electric Bills: No Difficulty Paying for Meds: No Currently Unemployed: No Education: High School Diploma/GED Difficulty w/ Childcare or Family Care: No Living arrangements: with family Gender identity (if verbalized by the patient): Female Spiritual care concerns
[2022-12-04] MEDS: DONEPEZIL HCL 5 MG TABLET 10 MG PO (20:33)
[2022-12-04] MEDS: LOSARTAN POTASSIUM 50 MG TABLET PO (20:33)
--- NOTE | 2022-12-04 22:05 | P.PNCROSS_ITS ---
Event Note Event Note Event Note: Received a call from the patient's nurse that 2 sets of blood cultures were justino wing Gram-positive cocci in clusters from the anaerobic bottles. Chart was reviewed. She is currently on azithromycin and ceftriaxone for pneumonia. Start vancomycin pending identification and sensitivities.
[2022-12-05] VITALS (12 sets, daily range): BP systolic 117–152; BP diastolic 62–87; PULSE 58–111; RESP 16–18; TEMP 36.8–37.3; O2SAT 93–98
[2022-12-05] MEDS: IPRATROPIUM BR 0.02% INH SOLN 0.5 MG/2.5 ML VIAL INHALATION ×4 (02:41→21:52)
[2022-12-05] MEDS: LEVALBUTEROL NEB 1.25 MG/3 ML 0.63 MG INHALATION ×4 (02:41→21:52)
[2022-12-05] MEDS: LEVOTHYROXINE SODIUM 50 MCG TABLET PO (05:34)
[2022-12-05 05:41] LABS: Basophils Percent Auto 0.3 % (0.2-1.2); Eosinophils Absolute Auto 0.1 K/mm3 (0-0.3); Eosinophils Percent Auto 1.6 % (0-4.4); Hematocrit 34.5 % (37.0-47.0); Hemoglobin 10.5 g/dL (12.0-15.0); Immature Granulocyte Absolute 0.04 K/mm3 (0.00-0.031); Immature Granulocyte Percent A 0.5 % (0-0.5); Lymphocytes Absolute Auto 0.73 K/mm3 (0.9-3.2); Lymphocytes Percent Auto 8.4 % (18.3-44.2); Mean Corpuscular HGB Conc 30.4 g/dl (32-36); Mean Corpuscular Hemoglobin 25.5 pg (26-34); Mean Corpuscular Volume 83.9 fl (80-100); Mean Platelet Volume 9.8 fl (7.4-10.4); Monocytes Absolute Auto 0.9 K/mm3 (0.1-0.6); Monocytes Percent Auto 10.4 % (2.6-8.5); Neutrophils Absolute Auto 6.9 K/mm3 (1.3-6.7); Neutrophils Percent Auto 78.8 % (45.5-73.1); Platelet Count Result 337 k/mm3 (150-375); Red Blood Count 4.11 M/mm3 (4.2-5.4); Red Cell Distribution Width 17.1 % (11.5-14.5); White Blood Count 8.7 K/mm3 (4.5-10.0)
[2022-12-05 06:05] LABS: Alanine Aminotransferase 18 U/L (6-35); Albumin Level 3.9 g/dL (3.5-5.1); Alkaline Phosphatase 70 U/L (38-126); Anion Gap 8 mmol/L (8-16); Aspartate Amino Transferase 26 U/L (14-36); Bilirubin,Total 0.5 mg/dL (0.2-1.3); Blood Urea Nitrogen 9 mg/dL (7-17); Calcium 8.7 mg/dL (8.4-10.2); Carbon Dioxide 27 mmol/L (22-30); Chloride 101 mmol/L (98-107); Estimated CRCL calculation 47 ml/min; Estimated Glomerular Filt Rate > 60; Glucose 77 mg/dL (65-110); Potassium 3.1 mmol/L (3.4-5.0); Sodium 136 mmol/L (137-145)
[2022-12-05] MEDS: DULoxetine HCL 60 MG CAPSULE.DR PO (08:08)
[2022-12-05] MEDS: GABAPENTIN 300 MG CAPSULE 600 MG PO ×3 (08:08→17:45)
[2022-12-05] MEDS: PANTOPRAZOLE 40 MG TABLET PO ×2 (08:08→17:45)
[2022-12-05] MEDS: predniSONE 1 MG TABLET 4 MG PO (08:08)
[2022-12-05] MEDS: ACETAMINOPHEN 325 MG TABLET 650 MG PO (08:09)
[2022-12-05] MEDS: amLODIPine BESYLATE 5 MG TABLET PO (08:09)
[2022-12-05] MEDS: FOLIC ACID 1 MG TABLET PO (08:09)
[2022-12-05] MEDS: EZETIMIBE 10 MG TABLET PO (08:09)
[2022-12-05] MEDS: CYANOCOBALAMIN 1,000 MCG TABLET 1000 MCG PO (08:09)
--- NOTE | 2022-12-05 13:42 | WPDGIPROGNO ---
Progress Note: A&P Assessment and Plan (1) Bacteremia: Code(s): R78.81 - Bacteremia Status: Acute Assessment and Plan: on appropriate abx, awaiting final ID (2) Abnormal CT scan, esophagus: Code(s): R93.3 - Abnormal findings on diagnostic imaging of other parts of digestive tract Status: Acute Assessment and Plan: no dysphagia, known history of gerd and abnormal CT scan egd probably on Wednesday (3) Chronic GERD: Code(s): K21.9 - Gastro-esophageal reflux disease without esophagitis Status: Acute (4) Pneumonia: Code(s): J18.9 - Pneumonia, unspecified organism Status: Acute Assessment and Plan: on treatment (5) Leukocytosis: Code(s): D72.829 - Elevated white blood cell count, unspecified Status: Acute Assessment and Plan: resolved Subjective Date/time seen: 12/05/22 13:42 Interval history: no nausea, less cough Blood cultures + Review of Systems Review of Systems: All systems reviewed & are unremarkable except as noted in HPI and below Exam Narrative: General: No acute distress, alert and oriented per baseline HEENT: Atraumatic, normocephalic, mucous membranes moist CV: Regular rate and rhythm, S1, S2 Lungs: Clear to auscultation bilaterally, no wheezes, good air entry Abdomen: Soft, nontender, nondistended Extremities: Normal to inspection Skin: No rashes noted, no lesions or wounds seen Psych: Euthymic, normal affect Objective Data Vital Signs Vital Signs: Vital Signs - 24 hr 12/04/22 14:32 12/04/22 14:42 12/04/22 14:00 Temperature 98.2 F Pulse Rate 87 87 90 Respiratory Rate 18 18 18 Blood Pressure 142/64 H Pulse Oximetry 99 Oxygen Delivery 12/04/22 21:28 12/04/22 20:00 12/04/22 21:41 Temperature 98.2 F Pulse Rate 86 86 94 Respiratory Rate 18 18 18 Blood Pressure 150/76 H Pulse Oximetry 99 97 Oxygen Delivery Room Air 12/05/22 02:42 12/05/22 02:43 12/04/22 21:40 Temperature Pulse Rate 98 92 87 Respiratory Rate 18 18 18 Blood Pressure Pulse Oximetry 94 Oxygen Delivery Room Air 12/05/22 03:00 12/05/22 06:00 12/05/22 08:06 Temperature 99.2 F Pulse Rate 90 96 104 H Respiratory Rate 18 18 18 Blood Pressure 142/63 H 152/84 H Pulse Oximetry 96 93 Oxygen Delivery 12/05/22 09:36 12/05/22 09:36 12/05/22 08:05 Temperature Pulse Rate 58 L Respiratory Rate 18 Blood Pressure Pulse Oximetry 95 Oxygen Delivery Room Air Room Air Intake/Output Intake/Output: Intake & Output 12/02/22 12/03/22 12/04/22 12/05/22 23:59 23:59 23:59 23:59 Intake Total 1090 2970 1720 Output Total 1100 1525 Balance 1090 1870 195 Meds/Results Medications: Active Medications Generic Name Dose Route Start Last Admin Trade Name Freq PRN Reason Stop Dose Admin Acetaminophen 650 mg 12/03/22 12:55 12/05/22 08:09 Acetaminophen 325 Mg Tablet PO 650 mg Q4H PRN Administration Mild Pain (1-3) or Fever Amlodipine Besylate 5 mg 12/04/22 09:00 12/05/22 08:09 Amlodipine Besylate 5 Mg Tablet PO 5 mg DAILY CASANDRA Administration Cyanocobalamin 1,000 mcg 12/04/22 09:00 12/05/22 08:09 Cyanocobalamin 1,000 Mcg Tablet PO 1,000 mcg DAILY CASANDRA Administration Cyclobenzaprine HCl 10 mg 12/03/22 14:41 Cyclobenzaprine Hcl 10 Mg Tablet PO BID PRN Muscle Spasm Donepezil HCl 10 mg 12/03/22 21:00 12/04/22 20:33 Donepezil Hcl 5 Mg Tablet PO 10 mg HS CASANDRA Administration Duloxetine HCl 60 mg 12/04/22 09:00 12/05/22 08:08 Duloxetine Hcl 60 Mg Capsule.Dr PO 60 mg DAILY CASANDRA Administration Ezetimibe 10 mg 12/04/22 09:00 12/05/22 08:09 Ezetimibe 10 Mg Tablet PO 10 mg DAILY CASANDRA Administration Folic Acid 1 mg 12/04/22 09:00 12/05/22 08:09 Folic Acid 1 Mg Tablet PO 1 mg DAILY CASANDRA Administration Gabapentin 600 mg 12/03/22 17:00 12/05/22 12:34 Gabapentin 300 Mg Capsule
--- NOTE | 2022-12-05 14:25 | PM.IMPN ---
Progress Note: A&P Assessment and Plan (1) Pneumonia: Code(s): J18.9 - Pneumonia, unspecified organism Status: Acute Assessment and Plan: Continue with azithromycin + rocephin started / Continue with nebulizer treatments Tailor antibiotics according to cultures and sensitivities Blood cx positive GPC, repeat blood cultures pending, cont current abx (2) Hypokalemia: Code(s): E87.6 - Hypokalemia Status: Acute Assessment and Plan: Potassium was replaced Recheck BMP Mag wnl (3) Chronic GERD: Code(s): K21.9 - Gastro-esophageal reflux disease without esophagitis Status: Acute Assessment and Plan: Continue with pantoprazole (4) Anemia: Code(s): D64.9 - Anemia, unspecified Status: Acute Assessment and Plan: Monitor hemoglobin Continue with folic acid, B12 (5) Hypertension: Qualifiers: Hypertension type: primary hypertension Qualified Code(s): I10 - Essential (primary) hypertension Code(s): I10 - Essential (primary) hypertension Status: Chronic Assessment and Plan: Continue with Norvasc Continue with losartan (6) Hyperlipidemia: Qualifiers: Hyperlipidemia type: mixed hyperlipidemia Qualified Code(s): E78.2 - Mixed hyperlipidemia Code(s): E78.5 - Hyperlipidemia, unspecified Status: Chronic Assessment and Plan: Continue with Zetia (7) Chronic kidney disease: Qualifiers: Chronic kidney disease stage: stage 3 (moderate) Chronic kidney disease stage 3 subtype: stage 3a (GFR 45-59) Qualified Code(s): N18.31 - Chronic kidney disease, stage 3a Code(s): N18.9 - Chronic kidney disease, unspecified Status: Acute Assessment and Plan: Patient's BUN is 17 creatinine 0.90 estimated GFR 60 (8) Dementia: Code(s): F03.90 - Unspecified dementia, unspecified severity, without behavioral disturbance, psychotic disturbance, mood disturbance, and anxiety Status: Acute Assessment and Plan: Continue with Aricept (9) Hypothyroidism: Qualifiers: Hypothyroidism type: acquired Qualified Code(s): E03.9 - Hypothyroidism, unspecified Code(s): E03.9 - Hypothyroidism, unspecified Status: Chronic Assessment and Plan: Continue with levothyroxine, TSH within normal limits (10) Compression fracture of thoracic vertebra: Qualifiers: Encounter type: initial encounter Thoracic vertebra fracture level: T9 Qualified Code(s): S22.070A - Wedge compression fracture of T9-T10 vertebra, initial encounter for closed fracture Code(s): S22.000A - Wedge compression fracture of unspecified thoracic vertebra, initial encounter for closed fracture Status: Acute Assessment and Plan: Continue with gabapentin (11) Thyroid nodule: Code(s): E04.1 - Nontoxic single thyroid nodule Status: Acute Assessment and Plan: FNA ordered and pending (12) Esophagitis: Code(s): K20.90 - Esophagitis, unspecified without bleeding Status: Acute Assessment and Plan: Appreciate GI consultation, may need EGD, concern for malignancy vs esophagitis other etiology, can be done as an outpatient or on Wednesday if repeat blood cx come back negative (13) Bacteremia: Code(s): R78.81 - Bacteremia Status: Acute Assessment and Plan: Likely transient from pneumonia, repeat blood cultures ordered and pending Check procalcitonin, CRP, lactic acid Continue current antibiotics as above Plan DVT prophylaxis with SCDs GI prophylaxis with PPI Code status full code Subjective Date/time seen: 12/05/22 14:25 Interval history: 82 year old female with history of GERD, kidney disease, dementia, hypothyroidism is presenting with productive cough and being treated for possible pneumonia. No overnight events noted
[2022-12-05] MEDS: POTASSIUM CHLORIDE 20 MEQ TABLET 40 MEQ PO (15:16)
[2022-12-05 17:06] LABS: Lactic Acid Reflex 1.4 mmol/L (0.7-2.0)
[2022-12-05 17:09] LABS: CRP 2.4 mg/dL (<1.0)
[2022-12-05 17:30] LABS: Procalcitonin 0.1 ng/mL
[2022-12-05] MEDS: LOSARTAN POTASSIUM 50 MG TABLET PO (20:33)
[2022-12-05] MEDS: DONEPEZIL HCL 5 MG TABLET 10 MG PO (20:33)
[2022-12-06] VITALS (16 sets, daily range): BP systolic 111–147; BP diastolic 69–90; PULSE 76–107; RESP 16–20; TEMP 36.6–38.4; O2SAT 93–99
[2022-12-06] MEDS: ACETAMINOPHEN 325 MG TABLET 650 MG PO (03:37)
[2022-12-06] MEDS: LEVOTHYROXINE SODIUM 50 MCG TABLET PO (05:37)
[2022-12-06 05:46] LABS: Basophils Percent Auto 0.5 % (0.2-1.2); Eosinophils Percent Auto 0.5 % (0-4.4); Hematocrit 35.7 % (37.0-47.0); Hemoglobin 10.9 g/dL (12.0-15.0); Immature Granulocyte Absolute 0.01 K/mm3 (0.00-0.031); Immature Granulocyte Percent A 0.2 % (0-0.5); Lymphocytes Absolute Auto 0.86 K/mm3 (0.9-3.2); Lymphocytes Percent Auto 13.8 % (18.3-44.2); Mean Corpuscular HGB Conc 30.5 g/dl (32-36); Mean Corpuscular Hemoglobin 25.3 pg (26-34); Monocytes Absolute Auto 0.7 K/mm3 (0.1-0.6); Monocytes Percent Auto 11.9 % (2.6-8.5); Neutrophils Absolute Auto 4.5 K/mm3 (1.3-6.7); Neutrophils Percent Auto 73.1 % (45.5-73.1); Platelet Count Result 257 k/mm3 (150-375); White Blood Count 6.2 K/mm3 (4.5-10.0)
[2022-12-06 06:05] LABS: Alanine Aminotransferase 18 U/L (6-35); Albumin Level 3.9 g/dL (3.5-5.1); Alkaline Phosphatase 70 U/L (38-126); Anion Gap 5 mmol/L (8-16); Aspartate Amino Transferase 35 U/L (14-36); Bilirubin,Total 0.5 mg/dL (0.2-1.3); Blood Urea Nitrogen 9 mg/dL (7-17); Calcium 8.5 mg/dL (8.4-10.2); Carbon Dioxide 29 mmol/L (22-30); Chloride 99 mmol/L (98-107); Estimated CRCL calculation 41 ml/min; Estimated Glomerular Filt Rate > 60; Glucose 84 mg/dL (65-110); Potassium 3.1 mmol/L (3.4-5.0); Sodium 133 mmol/L (137-145)
[2022-12-06] MEDS: IPRATROPIUM BR 0.02% INH SOLN 0.5 MG/2.5 ML VIAL INHALATION ×3 (07:19→20:15)
[2022-12-06] MEDS: LEVALBUTEROL NEB 1.25 MG/3 ML 0.63 MG INHALATION ×3 (07:19→20:15)
--- NOTE | 2022-12-06 07:58 | PM.IMPN ---
Progress Note: A&P Assessment and Plan (1) Pneumonia: Code(s): J18.9 - Pneumonia, unspecified organism Status: Acute Assessment and Plan: Azithromycin + rocephin started 12/03 Continue with nebulizer treatments One blood cx positive for s.aureus, 1 one positive for staph hominis, sens pending, repeat blood cultures pending, cont current abx Recheck PCT + CRP 12/07 Diarrhea + fevers, check CT chest, abd pelvis, consider escalating abx, however, patient feels well and leuk coming down (2) Hypokalemia: Code(s): E87.6 - Hypokalemia Status: Acute Assessment and Plan: Replace, recheck and monitor Mag wnl (3) Chronic GERD: Code(s): K21.9 - Gastro-esophageal reflux disease without esophagitis Status: Acute Assessment and Plan: Continue with pantoprazole (4) Anemia: Code(s): D64.9 - Anemia, unspecified Status: Acute Assessment and Plan: Monitor hemoglobin Continue with folic acid, B12 (5) Hypertension: Qualifiers: Hypertension type: primary hypertension Qualified Code(s): I10 - Essential (primary) hypertension Code(s): I10 - Essential (primary) hypertension Status: Chronic Assessment and Plan: Continue with Norvasc Continue with losartan (6) Hyperlipidemia: Qualifiers: Hyperlipidemia type: mixed hyperlipidemia Qualified Code(s): E78.2 - Mixed hyperlipidemia Code(s): E78.5 - Hyperlipidemia, unspecified Status: Chronic Assessment and Plan: Continue with Zetia (7) Chronic kidney disease: Qualifiers: Chronic kidney disease stage: stage 3 (moderate) Chronic kidney disease stage 3 subtype: stage 3a (GFR 45-59) Qualified Code(s): N18.31 - Chronic kidney disease, stage 3a Code(s): N18.9 - Chronic kidney disease, unspecified Status: Acute Assessment and Plan: Patient's BUN is 17 creatinine 0.90 estimated GFR 60 (8) Dementia: Code(s): F03.90 - Unspecified dementia, unspecified severity, without behavioral disturbance, psychotic disturbance, mood disturbance, and anxiety Status: Acute Assessment and Plan: Continue with Aricept (9) Hypothyroidism: Qualifiers: Hypothyroidism type: acquired Qualified Code(s): E03.9 - Hypothyroidism, unspecified Code(s): E03.9 - Hypothyroidism, unspecified Status: Chronic Assessment and Plan: Continue with levothyroxine, TSH within normal limits (10) Compression fracture of thoracic vertebra: Qualifiers: Encounter type: initial encounter Thoracic vertebra fracture level: T9 Qualified Code(s): S22.070A - Wedge compression fracture of T9-T10 vertebra, initial encounter for closed fracture Code(s): S22.000A - Wedge compression fracture of unspecified thoracic vertebra, initial encounter for closed fracture Status: Acute Assessment and Plan: Continue with gabapentin (11) Thyroid nodule: Code(s): E04.1 - Nontoxic single thyroid nodule Status: Acute Assessment and Plan: FNA ordered and pending, to be done outpatient (12) Esophagitis: Code(s): K20.90 - Esophagitis, unspecified without bleeding Status: Acute Assessment and Plan: Appreciate GI consultation, may need EGD, concern for malignancy vs esophagitis other etiology, can be done as an outpatient or on Wednesday if repeat blood cx come back negative (13) Bacteremia: Code(s): R78.81 - Bacteremia Status: Acute Assessment and Plan: Likely transient from pneumonia, repeat blood cultures ordered and pending PCT, LA, CRP all noted Continue current antibiotics as above Plan DVT prophylaxis with SCDs GI prophylaxis with PPI Code status full code Subjective Date/time seen: 12/06/22 07:58 Interval history: 82 year old female with history of GERD, kidney disease
[2022-12-06] MEDS: PANTOPRAZOLE 40 MG TABLET PO ×2 (08:40→17:30)
[2022-12-06] MEDS: FOLIC ACID 1 MG TABLET PO (08:40)
[2022-12-06] MEDS: GABAPENTIN 300 MG CAPSULE 600 MG PO ×3 (08:40→16:30)
[2022-12-06] MEDS: CYANOCOBALAMIN 1,000 MCG TABLET 1000 MCG PO (08:40)
[2022-12-06] MEDS: EZETIMIBE 10 MG TABLET PO (08:40)
[2022-12-06] MEDS: DULoxetine HCL 60 MG CAPSULE.DR PO (08:40)
[2022-12-06] MEDS: predniSONE 1 MG TABLET 4 MG PO (08:40)
[2022-12-06] MEDS: POTASSIUM CHLORIDE 20 MEQ TABLET 40 MEQ PO (08:41)
[2022-12-06] MEDS: amLODIPine BESYLATE 5 MG TABLET PO (08:41)
--- NOTE | 2022-12-06 10:25 | ECG_ITS ---
Measurements Intervals [place] Rate: 101 P: 29 NE: 164 QRS: -24 QRSD: 89 T: 31 QT: 347 QTc: 451 Interpretive Statements SINUS TACHYCARDIA FREQUENT ATRIAL PREMATURE COMPLEXES DELAYED PRECORDIAL R/S TRANSITION VOLTAGE CRITERIA FOR LVH BASELINE ARTIFACT- V6 ABNORMAL ECG COMPARED TO ECG 12/03/2022 13:12:30 NO SIGNIFICANT CHANGES Electronically Signed On 12-06-2022 12:58:47 CDT by Rm Vee D.O.
--- NOTE | 2022-12-06 19:30 | WPDGIPROGNO ---
Progress Note: A&P Assessment and Plan (1) Abnormal CT scan, esophagus: Code(s): R93.3 - Abnormal findings on diagnostic imaging of other parts of digestive tract Status: Acute Assessment and Plan: no dysphagia, known history of gerd and abnormal CT scan egd tomorrow (2) Bacteremia: Code(s): R78.81 - Bacteremia Status: Acute Assessment and Plan: on appropriate abx, awaiting final ID (had two different staph) (3) Chronic GERD: Code(s): K21.9 - Gastro-esophageal reflux disease without esophagitis Status: Acute Assessment and Plan: on ppi for now (4) Pneumonia: Code(s): J18.9 - Pneumonia, unspecified organism Status: Acute Assessment and Plan: on treatment (5) Leukocytosis: Code(s): D72.829 - Elevated white blood cell count, unspecified Status: Acute Assessment and Plan: resolved Subjective Date/time seen: 12/06/22 19:30 Interval history: no new events, finally got a new iv access Review of Systems Review of Systems: All systems reviewed & are unremarkable except as noted in HPI and below Exam Narrative: General: No acute distress, alert and oriented per baseline HEENT: Atraumatic, normocephalic, mucous membranes moist CV: Regular rate and rhythm, S1, S2 Lungs: Clear to auscultation bilaterally, decrease bs bases Abdomen: Soft, nontender, nondistended Extremities: Normal to inspection Skin: No rashes noted, no lesions or wounds seen Psych: Euthymic, normal affect Objective Data Vital Signs Vital Signs: Vital Signs - 24 hr 12/05/22 20:00 12/05/22 21:35 12/05/22 21:47 Temperature 98.2 F Pulse Rate 73 73 111 H Respiratory Rate 16 16 18 Blood Pressure 141/87 H Pulse Oximetry 98 97 Oxygen Delivery Room Air Oxygen Flow Rate 12/06/22 03:37 12/06/22 06:05 12/06/22 03:30 Temperature 101.1 F H 99.4 F Pulse Rate 102 H Respiratory Rate 20 Blood Pressure 147/90 H Pulse Oximetry 98 95 Oxygen Delivery Nasal Cannula Oxygen Flow Rate 2 12/06/22 07:21 12/06/22 07:21 12/06/22 07:36 Temperature Pulse Rate 76 84 Respiratory Rate 16 16 Blood Pressure Pulse Oximetry 94 Oxygen Delivery Nasal Cannula Oxygen Flow Rate 2 12/06/22 08:38 12/06/22 08:40 12/06/22 12:40 Temperature 98.2 F Pulse Rate 102 H 100 Respiratory Rate 20 18 Blood Pressure 117/78 Pulse Oximetry 97 97 94 Oxygen Delivery Nasal Cannula Oxygen Flow Rate 2 12/06/22 12:40 12/06/22 13:00 12/06/22 13:00 Temperature Pulse Rate Respiratory Rate Blood Pressure Pulse Oximetry 94 94 Oxygen Delivery Room Air Room Air Oxygen Flow Rate 12/06/22 13:25 12/06/22 13:15 12/06/22 13:28 Temperature Pulse Rate 103 H 88 Respiratory Rate 16 16 Blood Pressure Pulse Oximetry Oxygen Delivery Room Air Oxygen Flow Rate 12/06/22 14:00 12/06/22 15:14 Temperature 97.8 F Pulse Rate 107 H Respiratory Rate 18 Blood Pressure 111/69 Pulse Oximetry 99 Oxygen Delivery Room Air Oxygen Flow Rate Intake/Output Intake/Output: Intake & Output 12/03/22 12/04/22 12/05/22 12/06/22 23:59 23:59 23:59 23:59 Intake Total 1090 2970 3550 2920 Output Total 1100 2925 1725 Balance 1090 0998 793 6529 Meds/Results Medications: Active Medications Generic Name Dose Route Start Last Admin Trade Name Shaneq PRN Reason Stop Dose Admin Acetaminophen 650 mg 12/03/22 12:55 12/06/22 03:37 Acetaminophen 325 Mg Tablet PO 650 mg Q4H PRN Administration Mild Pain (1-3) or Fever Amlodipine Besylate 5 mg 12/04/22 09:00 12/06/22 08:41 Amlodipine Besylate 5 Mg Tablet PO 5 mg DAILY CASANDRA Administration Cyanocobalamin 1,000 mcg 12/04/22 09:00 12/06/22 08:40 Cyanocobalamin 1,000 Mcg Tablet PO 1,000 mcg DAILY CASANDRA Administration Cyclobenzaprine HCl 10 mg 12/03/22 14:41 Cyclobenzaprine Hcl 10 Mg Tablet PO BID PRN
[2022-12-06] MEDS: DONEPEZIL HCL 5 MG TABLET 10 MG PO (20:24)
[2022-12-06 22:43] LABS: Vancomycin Trough 10.4 ug/mL (10.0-20.0)
[2022-12-07] VITALS (14 sets, daily range): BP systolic 94–140; BP diastolic 54–79; PULSE 59–90; RESP 16–23; TEMP 36.7–37.2; O2SAT 92–98
[2022-12-07] MEDS: ONDANSETRON INJ 4 MG/2 ML VIAL IV PUSH (03:13)
[2022-12-07 05:19] LABS: Basophils Percent Auto 0.3 % (0.2-1.2); Eosinophils Percent Auto 0.6 % (0-4.4); Hematocrit 36.7 % (37.0-47.0); Hemoglobin 11.3 g/dL (12.0-15.0); Immature Granulocyte Absolute 0.02 K/mm3 (0.00-0.031); Immature Granulocyte Percent A 0.3 % (0-0.5); Lymphocytes Absolute Auto 1.02 K/mm3 (0.9-3.2); Mean Corpuscular HGB Conc 30.8 g/dl (32-36); Mean Corpuscular Hemoglobin 25.9 pg (26-34); Mean Corpuscular Volume 84.2 fl (80-100); Mean Platelet Volume 10.2 fl (7.4-10.4); Monocytes Absolute Auto 0.6 K/mm3 (0.1-0.6); Monocytes Percent Auto 8.9 % (2.6-8.5); Neutrophils Absolute Auto 4.7 K/mm3 (1.3-6.7); Neutrophils Percent Auto 73.9 % (45.5-73.1); Platelet Count Result 251 k/mm3 (150-375); Red Blood Count 4.36 M/mm3 (4.2-5.4); Red Cell Distribution Width 17.1 % (11.5-14.5); White Blood Count 6.4 K/mm3 (4.5-10.0)
[2022-12-07 05:34] LABS: Alanine Aminotransferase 19 U/L (6-35); Albumin Level 3.7 g/dL (3.5-5.1); Alkaline Phosphatase 63 U/L (38-126); Anion Gap 9 mmol/L (8-16); Aspartate Amino Transferase 32 U/L (14-36); Bilirubin,Total 0.4 mg/dL (0.2-1.3); Blood Urea Nitrogen 19 mg/dL (7-17); CRP 1.7 mg/dL (<1.0); Calcium 8.5 mg/dL (8.4-10.2); Carbon Dioxide 25 mmol/L (22-30); Chloride 97 mmol/L (98-107); Estimated CRCL calculation 34 ml/min; Estimated Glomerular Filt Rate 53; Glucose 77 mg/dL (65-110); Potassium 3.7 mmol/L (3.4-5.0); Sodium 131 mmol/L (137-145)
[2022-12-07] MEDS: LEVOTHYROXINE SODIUM 50 MCG TABLET PO (05:45)
[2022-12-07 06:08] LABS: Procalcitonin 0.1 ng/mL
[2022-12-07] MEDS: LEVALBUTEROL NEB 1.25 MG/3 ML 0.63 MG INHALATION ×2 (08:06→20:28)
[2022-12-07] MEDS: IPRATROPIUM BR 0.02% INH SOLN 0.5 MG/2.5 ML VIAL INHALATION ×2 (08:06→20:28)
[2022-12-07] MEDS: GABAPENTIN 300 MG CAPSULE 600 MG PO ×3 (08:39→17:13)
[2022-12-07] MEDS: CYANOCOBALAMIN 1,000 MCG TABLET 1000 MCG PO (08:39)
[2022-12-07] MEDS: PANTOPRAZOLE 40 MG TABLET PO ×2 (08:39→17:13)
[2022-12-07] MEDS: predniSONE 1 MG TABLET 4 MG PO (08:39)
[2022-12-07] MEDS: FOLIC ACID 1 MG TABLET PO (08:40)
[2022-12-07] MEDS: DULoxetine HCL 60 MG CAPSULE.DR PO (08:40)
[2022-12-07] MEDS: EZETIMIBE 10 MG TABLET PO (08:40)
--- NOTE | 2022-12-07 09:29 | PM.IMPN ---
Progress Note: A&P Assessment and Plan (1) Pneumonia: Code(s): J18.9 - Pneumonia, unspecified organism Status: Acute Assessment and Plan: Azithromycin + rocephin started 12/03 Continue with nebulizer treatments One blood cx positive for s.aureus, marrero sens, 1 one positive for staph hominis, sens pending, repeat blood cultures pending, cont current abx 12/06: Diarrhea + fevers, check CT chest, abd pelvis, consider escalating abx, however, patient feels well and leuk coming down 12/07: Fever resolved. CT chest/abd/pelvis shows improving pneumonia, otherwise non acute. CRP trending down, PCT unchanged at 0.1. Repeat blood cultures from 12/05 NGTD, sputum culture NGTD, MRSA swab negative. Will treat for 14 day course from 12/05 cx, end date 12/19. Will de-escalate abx to oxacillin IV for now, will d/c on oxacillin/nafcillin vs linezolid/bactrim. (2) Bacteremia: Code(s): R78.81 - Bacteremia Status: Acute Assessment and Plan: Likely transient from pneumonia, repeat blood cultures ordered and pending PCT, LA, CRP all noted Continue current antibiotics as above (3) Esophagitis: Code(s): K20.90 - Esophagitis, unspecified without bleeding Status: Acute Assessment and Plan: Appreciate GI consultation, may need EGD, concern for malignancy vs esophagitis other etiology, can be done as an outpatient or on 12/07 if repeat blood cx negative (4) Thyroid nodule: Code(s): E04.1 - Nontoxic single thyroid nodule Status: Acute Assessment and Plan: FNA ordered and pending, to be done outpatient (5) Hypokalemia: Code(s): E87.6 - Hypokalemia Status: Acute Assessment and Plan: Resolved, monitor Mag wnl (6) Chronic GERD: Code(s): K21.9 - Gastro-esophageal reflux disease without esophagitis Status: Acute Assessment and Plan: Continue with pantoprazole (7) Anemia: Code(s): D64.9 - Anemia, unspecified Status: Acute Assessment and Plan: Monitor hemoglobin, stable Continue with folic acid, B12 (8) Hypertension: Qualifiers: Hypertension type: primary hypertension Qualified Code(s): I10 - Essential (primary) hypertension Code(s): I10 - Essential (primary) hypertension Status: Chronic Assessment and Plan: Continue with Norvasc Continue with losartan (9) Hyperlipidemia: Qualifiers: Hyperlipidemia type: mixed hyperlipidemia Qualified Code(s): E78.2 - Mixed hyperlipidemia Code(s): E78.5 - Hyperlipidemia, unspecified Status: Chronic Assessment and Plan: Continue with Zetia (10) Chronic kidney disease: Qualifiers: Chronic kidney disease stage: stage 3 (moderate) Chronic kidney disease stage 3 subtype: stage 3a (GFR 45-59) Qualified Code(s): N18.31 - Chronic kidney disease, stage 3a Code(s): N18.9 - Chronic kidney disease, unspecified Status: Acute Assessment and Plan: Stable, slight bump, will give small bolus and recheck 12/08 (11) Dementia: Code(s): F03.90 - Unspecified dementia, unspecified severity, without behavioral disturbance, psychotic disturbance, mood disturbance, and anxiety Status: Acute Assessment and Plan: Continue with Aricept (12) Hypothyroidism: Qualifiers: Hypothyroidism type: acquired Qualified Code(s): E03.9 - Hypothyroidism, unspecified Code(s): E03.9 - Hypothyroidism, unspecified Status: Chronic Assessment and Plan: Continue with levothyroxine, TSH within normal limits (13) Compression fracture of thoracic vertebra: Qualifiers: Encounter type: initial encounter Thoracic vertebra fracture level: T9 Qualified Code(s): S22.070A - Wedge compression fracture of T9-T10 vertebra, initial encounter for closed fracture Code(s): S22.000A - Wedge compression fracture of unspecified
[2022-12-07] MEDS: SODIUM CHLORIDE 0.9% IV 500 ML 250 ML IV CONT (10:00)
[2022-12-07] MEDS: LACTATED RINGERS 1,000 ML 150 ML IV CONT (13:22)
--- NOTE | 2022-12-07 13:46 | WPDANESEPPF ---
Anes - Initial Pre Proc Eval Procedure: Operation Date: 12/07/22 14:45 Proposed Procedures p Esophagogastroduodenoscopy - Sergey Harden MD Date/Time: 12/07/22 13:46 Surgeon: Patrica Alamo DO Pre Op Diagnosis: sepsis,pneumonia,hemoptysis Patient Data Age: 82 Gender: F Height: 1.63 m Weight: 66.9 kg Last Vital Signs Temp 98.1 F 12/07/22 13:15 Pulse 78 12/07/22 13:15 Resp 18 12/07/22 13:15 BP 123/79 12/07/22 13:15 Pulse Ox 98 12/07/22 13:15 O2 Del Method Room Air 12/07/22 13:15 O2 Flow Rate 2 12/07/22 08:07 Allergies Allergy/AdvReac Type Severity Reaction Status Date / Time diphenhydramine AdvReac Agitated Verified 12/07/22 13:12 [From [facility]] Home Medications Medication Instructions Recorded Confirmed Type cyanocobalamin (vitamin B-12) 500 1,000 mcg PO DAILY 05/14/22 12/03/22 History mcg tablet (Vitamin B-12) cyclobenzaprine 10 mg tablet 10 mg PO BID PRN Muscle Spasm 05/14/22 12/03/22 History donepezil 5 mg tablet 10 mg PO HS 05/14/22 12/03/22 History duloxetine 60 mg capsule,delayed 60 mg PO DAILY 05/14/22 12/03/22 History release eszopiclone 3 mg tablet 3 mg PO HS 05/14/22 12/03/22 History ezetimibe 10 mg tablet 10 mg PO DAILY 05/14/22 12/03/22 History folic acid 1 mg tablet 1 mg PO DAILY 05/14/22 12/03/22 History gabapentin 600 mg tablet 600 mg PO TID 05/14/22 12/03/22 History levothyroxine 50 mcg tablet 50 mcg PO DAILY 05/14/22 12/03/22 History pantoprazole 40 mg tablet,delayed 40 mg PO BID 05/14/22 12/03/22 History release polyethylene glycol 3350 17 gram 17 g PO DAILY PRN Constipation #30 05/21/22 12/03/22 Rx oral powder packet (Miralax) ea acetaminophen 500 mg tablet 650 mg PO Q6H PRN Pain (Scale 12/03/22 12/03/22 History Score 1-3) amlodipine 5 mg tablet 5 mg PO DAILY 12/03/22 12/03/22 History dicyclomine 10 mg capsule See Rx Instructions .Route 12/03/22 12/03/22 History .COMPLEX PRN Diarrhea losartan 50 mg tablet 50 mg PO HS 12/03/22 12/03/22 History prednisone 1 mg tablet 4 mg PO DAILY 12/03/22 12/03/22 History Laboratory Tests 12/06/22 12/07/22 22:08 04:56 WBC 6.4 K/mm3 (4.5-10.0) RBC 4.36 M/mm3 (4.2-5.4) Hgb 11.3 L g/dL (12.0-15.0) Hct 36.7 L % (37.0-47.0) MCV 84.2 fl (80-100) MCH 25.9 L pg (26-34) MCHC 30.8 L g/dl (32-36) RDW 17.1 H % (11.5-14.5) Plt Count 251 k/mm3 (150-375) MPV 10.2 fl (7.4-10.4) Immature Gran % (Auto) 0.3 % (0-0.5) Neut % (Auto) 73.9 H % (45.5-73.1) Lymph % (Auto) 16.0 L % (18.3-44.2) Bath % (Auto) 8.9 H % (2.6-8.5) Eos % (Auto) 0.6 % (0-4.4) Baso % (Auto) 0.3 % (0.2-1.2) Lymph # (Auto) 1.02 K/mm3 (0.9-3.2) Bath # (Auto) 0.6 K/mm3 (0.1-0.6) Eos # (Auto) 0.0 K/mm3 (0-0.3) Baso # (Auto) 0.0 K/mm3 (0.0-0.1) Abs Immat Gran (auto) 0.02 K/mm3 (0.00-0.031) Absolute Neuts (auto) 4.7 K/mm3 (1.3-6.7) Absolute Nucleated RBC 0.0 K/mm3 (0.0-0.012) Nucleated RBC % 0.0 % (0.0-0.2) Sodium 131 L mmol/L (137-145) Potassium 3.7 mmol/L (3.4-5.0) Chloride 97 L mmol/L (98-107) Carbon Dioxide 25 mmol/L (22-30) Anion Gap 9 mmol/L (8-16) BUN 19 H D mg/dL (7-17) Creatinine 1.00 mg/dL (0.7-1.0) Estim Creat Clear Calc 34 ml/min Estimated GFR 53 L (59 - ) Glucose 77 mg/dL (65-110) Calcium 8.5 mg/dL (8.4-10.2) Total Bilirubin 0.4 mg/dL (0.2-1.3) AST 32 U/L (14-36) ALT 19 U/L (6-35) Alkaline Phosphatase 63 U/L (38-126) C-Reactive Protein 1.7 H mg/dL (<1.0) Total Protein 6.0 L g/dL (6.3-8.2) Albumin 3.7 g/dL (3.5-5.1) Procalcitonin 0.1 ng/mL Vancomycin Trough 10.4 ug/mL (10.0-20.0) Patient hx anesthesia problems: none Family
[2022-12-07 16:28] LABS: Anion Gap 6 mmol/L (8-16); Blood Urea Nitrogen 14 mg/dL (7-17); Calcium 8.6 mg/dL (8.4-10.2); Carbon Dioxide 27 mmol/L (22-30); Chloride 99 mmol/L (98-107); Estimated CRCL calculation 37 ml/min; Estimated Glomerular Filt Rate 60; Glucose 115 mg/dL (65-110); Potassium 4.5 mmol/L (3.4-5.0); Sodium 132 mmol/L (137-145)
[2022-12-07] MEDS: OXACILLIN SODIUM 2 GM in SODIUM CHLORIDE 0.9% IV 100 ML IVPB ×2 (17:48→20:29)
[2022-12-07] MEDS: DONEPEZIL HCL 5 MG TABLET 10 MG PO (20:30)
[2022-12-08] VITALS (7 sets, daily range): BP systolic 112; BP diastolic 55; PULSE 68–92; RESP 16–18; TEMP 36.8; O2SAT 100
[2022-12-08] MEDS: OXACILLIN SODIUM 2 GM in SODIUM CHLORIDE 0.9% IV 100 ML IVPB ×4 (00:21→12:42)
[2022-12-08] MEDS: LEVALBUTEROL NEB 1.25 MG/3 ML 0.63 MG INHALATION ×3 (02:33→13:27)
[2022-12-08] MEDS: IPRATROPIUM BR 0.02% INH SOLN 0.5 MG/2.5 ML VIAL INHALATION ×3 (02:34→13:27)
[2022-12-08] MEDS: LEVOTHYROXINE SODIUM 50 MCG TABLET PO (05:36)
[2022-12-08 05:52] LABS: Basophils Percent Auto 0.2 % (0.2-1.2); Eosinophils Absolute Auto 0.1 K/mm3 (0-0.3); Eosinophils Percent Auto 1.1 % (0-4.4); Hematocrit 32.3 % (37.0-47.0); Hemoglobin 9.7 g/dL (12.0-15.0); Immature Granulocyte Absolute 0.01 K/mm3 (0.00-0.031); Immature Granulocyte Percent A 0.2 % (0-0.5); Lymphocytes Absolute Auto 1.14 K/mm3 (0.9-3.2); Mean Corpuscular Hemoglobin 25.3 pg (26-34); Mean Corpuscular Volume 84.3 fl (80-100); Mean Platelet Volume 10.3 fl (7.4-10.4); Monocytes Absolute Auto 0.5 K/mm3 (0.1-0.6); Monocytes Percent Auto 10.9 % (2.6-8.5); Neutrophils Absolute Auto 2.7 K/mm3 (1.3-6.7); Neutrophils Percent Auto 61.6 % (45.5-73.1); Platelet Count Result 224 k/mm3 (150-375); Red Blood Count 3.83 M/mm3 (4.2-5.4); Red Cell Distribution Width 16.9 % (11.5-14.5); White Blood Count 4.4 K/mm3 (4.5-10.0)
[2022-12-08 06:12] LABS: Alanine Aminotransferase 16 U/L (6-35); Albumin Level 3.2 g/dL (3.5-5.1); Alkaline Phosphatase 55 U/L (38-126); Anion Gap 6 mmol/L (8-16); Aspartate Amino Transferase 29 U/L (14-36); Bilirubin,Total 0.4 mg/dL (0.2-1.3); Blood Urea Nitrogen 12 mg/dL (7-17); Calcium 8.2 mg/dL (8.4-10.2); Carbon Dioxide 26 mmol/L (22-30); Chloride 102 mmol/L (98-107); Estimated CRCL calculation 37 ml/min; Estimated Glomerular Filt Rate 60; Glucose 74 mg/dL (65-110); Potassium 3.7 mmol/L (3.4-5.0); Sodium 134 mmol/L (137-145)
--- NOTE | 2022-12-08 07:06 | WPDANESPN ---
Anes - Prog Note Post-Op Date/Time: 12/08/22 07:06 Cardiovascular status: normal Respiratory status: normal Airway patency: baseline Mental status: baseline Post-Op hydration status: normal Vital Signs: Last Vital Signs Temp 98.2 F 12/08/22 04:22 Pulse 92 12/08/22 04:22 Resp 18 12/08/22 04:22 BP 112/55 L 12/08/22 04:22 Pulse Ox 100 12/08/22 04:22 O2 Del Method Room Air 12/07/22 20:29 O2 Flow Rate 2 12/07/22 08:07 Pain Score (VAS): 0 I/O: Intake & Output 12/07/22 12/07/22 12/08/22 15:59 23:59 07:59 Intake Total 500 940 490 Output Total 1000 Balance 500 -60 490 Laboratory Tests 12/08/22 05:06 12/08/22 05:06 12/07/22 12/08/22 16:06 05:06 WBC 4.4 L RBC 3.83 L Hgb 9.7 L Hct 32.3 L MCV 84.3 MCH 25.3 L MCHC 30.0 L RDW 16.9 H Plt Count 224 MPV 10.3 Immature Gran % (Auto) 0.2 Neut % (Auto) 61.6 Lymph % (Auto) 26.0 [place] % (Auto) 10.9 H Eos % (Auto) 1.1 Baso % (Auto) 0.2 Lymph # (Auto) 1.14 [place] # (Auto) 0.5 Eos # (Auto) 0.1 Baso # (Auto) 0.0 Abs Immat Gran (auto) 0.01 Absolute Neuts (auto) 2.7 Absolute Nucleated RBC 0.0 Nucleated RBC % 0.0 Sodium 132 L 134 L Potassium 4.5 3.7 Chloride 99 102 Carbon Dioxide 27 26 Anion Gap 6 L 6 L BUN 14 D 12 Creatinine 0.90 0.90 Estim Creat Clear Calc 37 37 Estimated GFR 60 60 Glucose 115 H 74 Calcium 8.6 8.2 L Total Bilirubin 0.4 AST 29 ALT 16 Alkaline Phosphatase 55 Total Protein 6.0 L Albumin 3.2 L Microbiology 12/06/22 18:29 Sputum Sputum Culture - Preliminary 12/03/22 12:22 Blood Blood Culture - Preliminary Staphylococcus aureus Post-procedural complaints: none Patient Feedback: Patient satisfied with anesthetic care.
[2022-12-08] MEDS: predniSONE 1 MG TABLET 4 MG PO (08:58)
[2022-12-08] MEDS: GABAPENTIN 300 MG CAPSULE 600 MG PO ×2 (08:58→12:42)
[2022-12-08] MEDS: PANTOPRAZOLE 40 MG TABLET PO (08:58)
[2022-12-08] MEDS: FOLIC ACID 1 MG TABLET PO (08:59)
[2022-12-08] MEDS: DULoxetine HCL 60 MG CAPSULE.DR PO (08:59)
[2022-12-08] MEDS: EZETIMIBE 10 MG TABLET PO (08:59)
[2022-12-08] MEDS: CYANOCOBALAMIN 1,000 MCG TABLET 1000 MCG PO (08:59)
--- NOTE | 2022-12-08 11:31 | P.PNIM_ITS ---
Progress Note: A&P Assessment and Plan (1) Pneumonia: Code(s): J18.9 - Pneumonia, unspecified organism Status: Acute Assessment and Plan: Azithromycin + rocephin started 12/03 Continue with nebulizer treatments One blood cx positive for s.aureus, marrero sens, 1 one positive for staph hominis, sens pending, repeat blood cultures pending, cont current abx 12/06: Diarrhea + fevers, check CT chest, abd pelvis, consider escalating abx, however, patient feels well and leuk coming down 12/07: Fever resolved. CT chest/abd/pelvis shows improving pneumonia, otherwise non acute. CRP trending down, PCT unchanged at 0.1. Repeat blood cultures from 12/05 NGTD, sputum culture NGTD, MRSA swab negative. Will treat for 14 day course from 12/05 cx, end date 12/19. Will de-escalate abx to oxacillin IV for now, will d/c on oxacillin/nafcillin vs linezolid/bactrim. 12/08: Leuk and platelets dropping, monitor on oxacillin, consider discharge tomorrow with linezolid vs bactrim or placing PICC for IV abx at d/c. (2) Bacteremia: Code(s): R78.81 - Bacteremia Status: Acute Assessment and Plan: Likely transient from pneumonia, repeat blood cultures ordered and pending PCT, LA, CRP all noted Continue current antibiotics as above (3) Esophagitis: Code(s): K20.90 - Esophagitis, unspecified without bleeding Status: Acute Assessment and Plan: Appreciate GI consultation, may need EGD, concern for malignancy vs esophagitis other etiology, can be done as an outpatient or when repeat blood cx negative (4) Thyroid nodule: Code(s): E04.1 - Nontoxic single thyroid nodule Status: Acute Assessment and Plan: FNA ordered and pending, to be done outpatient (5) Hypokalemia: Code(s): E87.6 - Hypokalemia Status: Acute Assessment and Plan: Resolved, monitor Mag wnl (6) Chronic GERD: Code(s): K21.9 - Gastro-esophageal reflux disease without esophagitis Status: Acute Assessment and Plan: Continue with pantoprazole (7) Anemia: Code(s): D64.9 - Anemia, unspecified Status: Acute Assessment and Plan: Monitor hemoglobin, stable Continue with folic acid, B12 (8) Hypertension: Qualifiers: Hypertension type: primary hypertension Qualified Code(s): I10 - Essential (primary) hypertension Code(s): I10 - Essential (primary) hypertension Status: Chronic Assessment and Plan: Continue with Norvasc Continue with losartan (9) Hyperlipidemia: Qualifiers: Hyperlipidemia type: mixed hyperlipidemia Qualified Code(s): E78.2 - Mixed hyperlipidemia Code(s): E78.5 - Hyperlipidemia, unspecified Status: Chronic Assessment and Plan: Continue with Zetia (10) Chronic kidney disease: Qualifiers: Chronic kidney disease stage: stage 3 (moderate) Chronic kidney disease stage 3 subtype: stage 3a (GFR 45-59) Qualified Code(s): N18.31 - Chronic kidney disease, stage 3a Code(s): N18.9 - Chronic kidney disease, unspecified Status: Acute Assessment and Plan: Stable, slight bump, will give small bolus and recheck 12/08 12/08: cr/BUN improved with bolus, encouraged po intake (11) Dementia: Code(s): F03.90 - Unspecified dementia, unspecified severity, without behavioral disturbance, psychotic disturbance, mood disturbance, and anxiety
--- NOTE | 2022-12-08 13:20 | PM.DS ---
DS: Admitting Diagnosis Discharge Date 12/08/2022 Admitting Diagnosis Shortness of breath DS: Discharge Diagnosis Discharge Diagnosis (1) Pneumonia: Code(s): J18.9 - Pneumonia, unspecified organism Status: Acute Assessment and Plan: Azithromycin + rocephin started 12/03 Continue with nebulizer treatments One blood cx positive for s.aureus, marrero sens, 1 one positive for staph hominis, sens pending, repeat blood cultures pending, cont current abx 12/06: Diarrhea + fevers, check CT chest, abd pelvis, consider escalating abx, however, patient feels well and leuk coming down 12/07: Fever resolved. CT chest/abd/pelvis shows improving pneumonia, otherwise non acute. CRP trending down, PCT unchanged at 0.1. Repeat blood cultures from 12/05 NGTD, sputum culture NGTD, MRSA swab negative. Will treat for 14 day course from 12/05 cx, end date 12/19. Will de-escalate abx to oxacillin IV for now, will d/c on oxacillin/nafcillin vs linezolid/bactrim. 12/08: Leuk and platelets dropping, monitor on oxacillin, consider discharge tomorrow with linezolid vs bactrim or placing PICC for IV abx at d/c. (2) Bacteremia: Code(s): R78.81 - Bacteremia Status: Acute Assessment and Plan: Likely transient from pneumonia, repeat blood cultures ordered and pending PCT, LA, CRP all noted Continue current antibiotics as above (3) Esophagitis: Code(s): K20.90 - Esophagitis, unspecified without bleeding Status: Acute Assessment and Plan: Appreciate GI consultation, may need EGD, concern for malignancy vs esophagitis other etiology, can be done as an outpatient or when repeat blood cx negative (4) Thyroid nodule: Code(s): E04.1 - Nontoxic single thyroid nodule Status: Acute Assessment and Plan: FNA ordered and pending, to be done outpatient (5) Hypokalemia: Code(s): E87.6 - Hypokalemia Status: Acute Assessment and Plan: Resolved, monitor Mag wnl (6) Chronic GERD: Code(s): K21.9 - Gastro-esophageal reflux disease without esophagitis Status: Acute Assessment and Plan: Continue with pantoprazole (7) Anemia: Code(s): D64.9 - Anemia, unspecified Status: Acute Assessment and Plan: Monitor hemoglobin, stable Continue with folic acid, B12 (8) Hypertension: Qualifiers: Hypertension type: primary hypertension Qualified Code(s): I10 - Essential (primary) hypertension Code(s): I10 - Essential (primary) hypertension Status: Chronic Assessment and Plan: Continue with Norvasc Continue with losartan (9) Hyperlipidemia: Qualifiers: Hyperlipidemia type: mixed hyperlipidemia Qualified Code(s): E78.2 - Mixed hyperlipidemia Code(s): E78.5 - Hyperlipidemia, unspecified Status: Chronic Assessment and Plan: Continue with Zetia (10) Chronic kidney disease: Qualifiers: Chronic kidney disease stage: stage 3 (moderate) Chronic kidney disease stage 3 subtype: stage 3a (GFR 45-59) Qualified Code(s): N18.31 - Chronic kidney disease, stage 3a Code(s): N18.9 - Chronic kidney disease, unspecified Status: Acute Assessment and Plan: Stable, slight bump, will give small bolus and recheck 12/08 12/08: cr/BUN improved with bolus, encouraged po intake (11) Dementia: Code(s): F03.90 - Unspecified dementia, unspecified severity, without behavioral disturbance, psychotic disturbance, mood disturbance, and anxiety Status: Acute Assessment and Plan: Continue with Aricept (12) Hypothyroidism: Qualifiers: Hypothyroidism type: acquired Qualified Code(s): E03.9 - Hypothyroidism, unspecified Code(s): E03.9 - Hypothyroidism, unspecified Status: Chronic Assessment and Plan: Continue with levothyroxine, TSH within normal limits (13) Compression fracture of tho
--- NOTE | 2022-12-08 14:22 | WPDGIPROGNO ---
Progress Note: A&P Assessment and Plan (1) Esophagitis: Code(s): K20.90 - Esophagitis, unspecified without bleeding Status: Acute Assessment and Plan: continue with ppi daily no dysphagia egd yesterday with bx, grade II esophagitis and hiatal hernia (2) Chronic GERD: Code(s): K21.9 - Gastro-esophageal reflux disease without esophagitis Status: Acute Assessment and Plan: on ppi (3) Pneumonia: Code(s): J18.9 - Pneumonia, unspecified organism Status: Acute Assessment and Plan: abx by primary home soon Subjective Date/time seen: 12/08/22 14:22 Interval history: doing well, egd yesterday showed moderate esophagitis and hiatal hernia, no lesions Review of Systems Review of Systems: All systems reviewed & are unremarkable except as noted in HPI and below Exam Narrative: General: No acute distress, alert and oriented per baseline HEENT: Atraumatic, normocephalic, mucous membranes moist CV: Regular rate and rhythm, S1, S2 Lungs: Improved air entry, no wheeze Abdomen: Soft, nontender, nondistended Extremities: Normal to inspection Skin: No rashes noted, no lesions or wounds seen Psych: Euthymic, normal affect Objective Data Vital Signs Vital Signs: Vital Signs - 24 hr 12/07/22 14:35 12/07/22 14:45 12/07/22 14:55 Temperature Pulse Rate 88 59 L 90 Respiratory Rate 23 H 22 H 18 Blood Pressure 106/58 L 94/59 L 112/54 L Pulse Oximetry 94 94 92 Oxygen Delivery Room Air Room Air Room Air 12/07/22 15:44 12/07/22 20:04 12/07/22 20:28 Temperature 98.3 F 98.9 F Pulse Rate 83 87 76 Respiratory Rate 18 18 18 Blood Pressure 120/63 111/77 Pulse Oximetry 98 98 Oxygen Delivery 12/07/22 20:29 12/07/22 20:00 12/08/22 02:35 Temperature Pulse Rate 76 82 Respiratory Rate 18 18 Blood Pressure Pulse Oximetry 93 93 Oxygen Delivery Room Air Room Air 12/08/22 02:42 12/07/22 20:50 12/08/22 04:22 Temperature 98.2 F Pulse Rate 83 79 92 Respiratory Rate 16 16 18 Blood Pressure 112/55 L Pulse Oximetry 100 Oxygen Delivery 12/08/22 08:23 12/08/22 08:39 12/08/22 09:00 Temperature Pulse Rate 90 84 Respiratory Rate 18 16 Blood Pressure Pulse Oximetry Oxygen Delivery Room Air 12/08/22 13:30 12/08/22 13:39 Temperature Pulse Rate 78 68 Respiratory Rate 18 16 Blood Pressure Pulse Oximetry Oxygen Delivery Intake/Output Intake/Output: Intake & Output 12/05/22 12/06/22 12/07/22 12/08/22 23:59 23:59 23:59 23:59 Intake Total 3550 2920 1440 2019 Output Total 2925 1725 1500 Balance 625 1195 -60 2019 Meds/Results Medications: Active Medications Generic Name Dose Route Start Last Admin Trade Name Freq PRN Reason Stop Dose Admin Acetaminophen 650 mg 12/03/22 12:55 12/06/22 03:37 Acetaminophen 325 Mg Tablet PO 650 mg Q4H PRN Administration Mild Pain (1-3) or Fever Amlodipine Besylate 5 mg 12/04/22 09:00 12/06/22 08:41 Amlodipine Besylate 5 Mg Tablet PO 5 mg DAILY CASANDRA Administration Cyanocobalamin 1,000 mcg 12/04/22 09:00 12/08/22 08:59 Cyanocobalamin 1,000 Mcg Tablet PO 1,000 mcg DAILY CASANDRA Administration Cyclobenzaprine HCl 10 mg 12/03/22 14:41 Cyclobenzaprine Hcl 10 Mg Tablet PO BID PRN Muscle Spasm Donepezil HCl 10 mg 12/03/22 21:00 12/07/22 20:30 Donepezil Hcl 5 Mg Tablet PO 10 mg HS CASANDRA Administration Duloxetine HCl 60 mg 12/04/22 09:00 12/08/22 08:59 Duloxetine Hcl 60 Mg Capsule.Dr PO 60 mg DAILY CASANDRA Administration Ezetimibe 10 mg 12/04/22 09:00 12/08/22 08:59 Ezetimibe 10 Mg Tablet PO 10 mg DAILY CASANDRA Administration Folic Acid 1 mg 12/04/22 09:00 12/08/22 08:59 Folic Acid 1 Mg Tablet PO 1 mg DAILY CASANDRA Administration Gabapentin 600 mg 12/03/22 17:00 12/08/22 12:42 Gabapentin 300 Mg Capsule PO 600 mg TID CASANDRA Administration Oxacillin Sodium 2 gm/ Sodi
== END 2022-12-08 14:45 | disposition home or self-care (01) | DRG 194 ==
LOC: ANHED 12:59 → ANH2MED 13:48
PROVIDERS: Internal Medicine Gastroenterology; Nurse Practitioner; Physician Assistant; Admitting Provider Student in an Organized Health Care Education/Training Program; Emergency Provider Emergency Medicine; Visit Provider Student in an Organized Health Care Education/Training Program
PROC: 0DJ08ZZ Inspection of Upper Intestinal Tract, Via Natural or Artificial Opening Endoscopic (ICD-10-PCS; CPT 43235; principal; 2022-12-07 14:45)
DX: J18.9 Pneumonia, unspecified organism (principal); R04.2 Hemoptysis; R78.81 Bacteremia; K21.00 Gastro-esophageal reflux disease with esophagitis, without bleeding; K44.9 Diaphragmatic hernia without obstruction or gangrene; S22.071D Stable burst fracture of T9-T10 vertebra, subsequent encounter for fracture with routine healing; K31.7 Polyp of stomach and duodenum; B95.7 Other staphylococcus as the cause of diseases classified elsewhere; D63.1 Anemia in chronic kidney disease; E78.5 Hyperlipidemia, unspecified; E03.9 Hypothyroidism, unspecified; E04.1 Nontoxic single thyroid nodule; E87.6 Hypokalemia; F03.90 Unspecified dementia, unspecified severity, without behavioral disturbance, psychotic disturbance, mood disturbance, and anxiety; I12.9 Hypertensive chronic kidney disease with stage 1 through stage 4 chronic kidney disease, or unspecified chronic kidney disease; N18.31 Chronic kidney disease, stage 3a; Z20.822 Contact with and (suspected) exposure to COVID-19; Z90.710 Acquired absence of both cervix and uterus; Z90.49 Acquired absence of other specified parts of digestive tract
CPT/HCPCS: 36415; 71250; 71275; 74176; 76536; 80048; 80053; 80202; 82274; 82948; 83605; 83615; 83735; 84145; 84443; 85014; 85018; 85025; 85610; 85730; 86140; 86850; 86900; 86901; 87040; 87070; 87081; 87147; 87181; 87186; 87205; 87637; 88305; 93005; 94640; 96365; 96367; 97161; 97165; 99285; A9270; J0456; J0696; J2001; J2405; J2700; J2704; J3370; J7030; J7120; Q9967

== ENCOUNTER 2022-12-11 11:18 | Outpatient (CLI) | payer OTHER, SELFPAY ==
[2022-12-11 11:42] LABS: Basophils Percent Auto 0.4 % (0.2-1.2); Eosinophils Absolute Auto 0.1 K/mm3 (0-0.3); Eosinophils Percent Auto 2.4 % (0-4.4); Hematocrit 35.1 % (37.0-47.0); Hemoglobin 10.7 g/dL (12.0-15.0); Immature Granulocyte Absolute 0.02 K/mm3 (0.00-0.031); Immature Granulocyte Percent A 0.4 % (0-0.5); Lymphocytes Absolute Auto 1.56 K/mm3 (0.9-3.2); Lymphocytes Percent Auto 33.5 % (18.3-44.2); Mean Corpuscular HGB Conc 30.5 g/dl (32-36); Mean Corpuscular Hemoglobin 25.6 pg (26-34); Monocytes Absolute Auto 0.5 K/mm3 (0.1-0.6); Monocytes Percent Auto 11.4 % (2.6-8.5); Neutrophils Absolute Auto 2.4 K/mm3 (1.3-6.7); Neutrophils Percent Auto 51.9 % (45.5-73.1); Platelet Count Result 318 k/mm3 (150-375); Red Blood Count 4.18 M/mm3 (4.2-5.4); Red Cell Distribution Width 16.9 % (11.5-14.5); White Blood Count 4.7 K/mm3 (4.5-10.0)
[2022-12-11 11:54] LABS: Anion Gap 6 mmol/L (8-16); Blood Urea Nitrogen 11 mg/dL (7-17); Carbon Dioxide 32 mmol/L (22-30); Chloride 102 mmol/L (98-107); Estimated Glomerular Filt Rate 53; Glucose 99 mg/dL (65-110); Potassium 4.1 mmol/L (3.4-5.0); Sodium 140 mmol/L (137-145)
== END 2022-12-11 11:19 | disposition home or self-care (01) ==
LOC: ANHLAB 11:20
PROVIDERS: Visit Provider Student in an Organized Health Care Education/Training Program
DX: N17.9 Acute kidney failure, unspecified (principal); R78.81 Bacteremia
CPT/HCPCS: 36415; 80048; 85025

== ENCOUNTER 2023-11-27 16:20 | Emergency (ER) | payer OTHER, SELFPAY ==
--- NOTE | ~2023-11-27 | XR_ITS ---
EXAMINATION: XR chest 1V Exam Date/Time: 11/27/2023 19:10 CDT HISTORY: fall Comparison: CT C-spine, same date; x-ray chest 05/20/2022. RESULT: Lines, tubes, and devices: Cholecystectomy clips. Lungs and pleura: Mild right rotation. Senescent changes, otherwise clear. Cardiomediastinal silhouette: Stable. Apparent mediastinal widening result of rotation and technique , no superior mediastinal abnormality in the concurrent CT C-spine Other: No acute osseous or upper abdominal finding. IMPRESSION: No acute cardiopulmonary process. Reviewed, dictated and finalized at location K.
--- NOTE | ~2023-11-27 | CT_ITS ---
EXAMINATION: CT cervical spine wo con DATE: 11/27/2023 19:08 INDICATION: head injury TECHNIQUE: Computed tomography (CT) of the cervical spine was performed without intravenous contrast. Automated exposure control and iterative reconstruction technique were employed. The dose-length pro duct was 231.13 mGy-cm. COMPARISON: None. FINDINGS: Vertebral Body Alignment: Stable trace anterolisthesis at C5-6. Craniocervical and atlantoaxial alignment: Severe degenerative change. Alignment intact. Osseous structures/fracture: No evidence of a lytic or blastic process in the visualized spine. No e vidence of acute fracture. Stable mild anterior wedge deformity at C4 and C5. Cervical soft tissues: The paraspinal soft tissues planes are maintained. Biapical pleural scarring. Senescent changes in the lungs. 2.3 cm left thyroid nodule. Aortic arch calcifications. Degenerative changes: Degenerative changes, without severe neural foraminal or central canal narrowin g. IMPRESSION: No acute fracture or traumatic malalignment in the cervical spine. Reviewed, dictated and finalized at location K.
--- NOTE | ~2023-11-27 | CT_ITS ---
EXAMINATION: CT brain wo con DATE: 11/27/2023 19:08 INDICATION: head injury . TECHNIQUE: Computed tomography (CT) of the head was performed without intravenous contrast. The mA wa s adjusted according to patient size. Iterative reconstruction technique was employed. The dose-lengt h product was 681.00 mGy-cm. COMPARISON: 05/20/2022. FINDINGS: No acute intracranial hemorrhage or extra-axial fluid collection. No hydrocephalus, mass, or herniation. No acute ischemic infarct. Unremarkable dural venous sinus attenuation. No acute osseous abnormality. Right mastoid fluid, the remaining aerated spaces are clear. Moderate atrophy and mild chronic white matter change. Atherosclerotic intracranial calcification. Pa rtially empty sella. Bilateral lens replacements. IMPRESSION: No acute intracranial process. Reviewed, dictated and finalized at location K.
--- NOTE | ~2023-11-27 | CT_ITS ---
EXAMINATION: CT lumbar spine wo con DATE: 11/27/2023 19:08 INDICATION: back pain, fall . TECHNIQUE: Computed tomography (CT) of the lumbar spine was performed without intravenous contrast. A utomated exposure control and iterative reconstruction technique were employed. The dose-length produ ct was 540.64 mGy-cm. COMPARISON: CT thoracic and lumbar spine 05/14/2022; CT cap 12/06/2022. FINDINGS: 5 nonrib-bearing lumbar-type vertebral bodies. Severe scoliosis. Stable multilevel vertebra l body height loss including stable burst fractures at T9, T12, and L3. Multilevel severe degenerativ e change. Severe multilevel facet arthropathy. Multilevel severe bilateral neural foraminal narrowing secondary to degenerative changes. Severe central canal narrowing at L3-4 secondary to degenerative changes. Hiatal hernia. Prior gastric surgery. Partially calcified left renal mass, unchanged likely postablative change. 2.6 cm simple appearing left ovarian cyst. Diverticulosis. Atherosclerotic calci fications. IMPRESSION: No acute fracture or traumatic malalignment in the lumbar spine. Degenerative neural foraminal and ce ntral canal narrowing. Reviewed, dictated and finalized at location K. IMPRESSION: No acute fracture or traumatic malalignment in the lumbar spine. Degenerative n eural foraminal and central canal narrowing.
--- NOTE | ~2023-11-27 | XR_ITS ---
EXAM: XR hip BI 2V w AP pelvis DATE: 11/27/2023 19:25 HISTORY: hip pain, fall . COMPARISON: CT L-spine, same date x-ray left hip 08/10/2023; CT CAP 12/06/2022. FINDINGS: Decreased mineralization. Uncomplicated appearing left proximal femoral hardware. Severe l umbar scoliosis with degenerative changes. Mild bilateral hip osteoarthritis. No fracture or dislocat ion. IMPRESSION: No acute osseous finding in the pelvis or bilateral hips. No radiographic evidence of moshe dware-related complication in the left hip. Reviewed, dictated and finalized at location K. IMPRESSION: No acute osseous finding in the pelvis or bilateral hips. No radiog raphic evidence of hardware-related complication in the left hip.
[2023-11-27 16:24] VITALS: BP 153/106; PULSE 107; RESP 16; TEMP 36.5; O2SAT 95
--- NOTE | 2023-11-27 18:46 | ECG_ITS ---
SEE SCANNED COPY FOR CONFIRMED REPORT MTDD
--- NOTE | 2023-11-27 18:48 | ED.FALL ---
HPI - Fall General Chief Complaint: Fall Stated Complaint: fall last night/pain Time Seen by Provider: 11/27/23 18:18 Source: patient and family Mode of arrival: wheelchair Limitations: dementia History of Present Illness HPI Narrative: This is an 83-year-old female that presents to the emergency department after a fall yesterday with head injury. Reports she was gardening and stood up and felt dizzy. This caused her to fall and hit her head. She does not believe she lost consciousness. Reports since she has had back pain and hip pain. Denies vomiting, focal numbness, or weakness. Related Data Home Medications Medication Instructions Recorded Confirmed cyanocobalamin (vitamin B-12) 500 1,000 mcg PO DAILY 05/14/22 08/10/23 mcg tablet (Vitamin B-12) cyclobenzaprine 10 mg tablet 10 mg PO BID PRN Muscle Spasm 05/14/22 08/10/23 donepezil 5 mg tablet 10 mg PO HS 05/14/22 08/10/23 eszopiclone 3 mg tablet 3 mg PO HS 05/14/22 08/10/23 ezetimibe 10 mg tablet 10 mg PO DAILY 05/14/22 08/10/23 folic acid 1 mg tablet 1 mg PO DAILY 05/14/22 08/10/23 gabapentin 600 mg tablet 600 mg PO TID 05/14/22 08/10/23 levothyroxine 50 mcg tablet 50 mcg PO DAILY 05/14/22 08/10/23 pantoprazole 40 mg tablet,delayed 40 mg PO BID 05/14/22 08/10/23 release dicyclomine 10 mg capsule See Rx Instructions .Route 12/03/22 08/10/23 .COMPLEX PRN Diarrhea Allergies Allergy/AdvReac Type Severity Reaction Status Date / Time diphenhydramine AdvReac Agitated Verified 11/27/23 16:28 [From Benadryl] Review of Systems Review of Systems: CONSTITUTIONAL: Denies fever EYES: Denies visual changes CARDIOVASCULAR: Denies chest pain RESPIRATORY: Denies dyspnea. GASTROINTESTINAL: Denies vomiting MUSCULOSKELETAL: Reports back pain, joint pain, and myalgia. NEUROLOGIC: Denies numbness, or weakness. All systems reviewed & are unremarkable except as noted in HPI and below PMFSH Past Medical History Medical History (Updated 11/27/23 @ 22:01 by Reny Allison PA-C) Abnormal CT scan, esophagus Acquired leg length discrepancy Anemia Bacteremia Chronic GERD Chronic kidney disease Closed intertrochanteric fracture of left hip Compression fracture of thoracic vertebra Dementia Encounter for postoperative care Hyperlipidemia Hypertension Hypothyroidism Trochanteric bursitis, left hip Surgical History Surgical History H/O: hysterectomy Hx of cholecystectomy S/P ORIF (open reduction internal fixation) fracture left hip Family History Family History Father Heart disease Mother Heart disease Sibling Heart disease Malignant neoplasm of prostate Social History Social History Social History: She is and has 4 children . 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 She does not use any alcohol marijuana or illicit drug. Her is the durable power hem inspector for healthcare. code full code Smoking status: Never smoker Alcohol intake: never Substance use: never Lack of Transportation: No Lack of Food: Never True Current Housing: I Have Housing Concerned About Future Housing: No Difficulty Paying Gas/Electric Bills: No Difficulty Paying for Meds: No Currently Unemployed: No Education: High School Diploma/GED Difficulty w/ Childcare or Family Care: No Living arrangements: with family Gender identity (if verbalized by the patient): Female Spiritual care concerns: No Exam Narrative: GENERAL: Elderly, well-nourished, and in no acute distress. HEAD: Normocephalic, atraumatic. EYES: PERRLA and EOMI. ENT: Nares clear, no rhinorrhea or epistaxis. Mucous membranes moist. Oropharynx without tonsillar hypertrophy exudate or other lesions. Left TM pearly yuan non-bulging. Right cerumen impaction NECK: Supple. No adenop
[2023-11-27 19:50] LABS: Basophils Absolute Auto 0.1 K/mm3 (0.0-0.1); Basophils Percent Auto 0.6 % (0.2-1.2); Eosinophils Absolute Auto 0.2 K/mm3 (0-0.3); Eosinophils Percent Auto 2.6 % (0-4.4); Hematocrit 43.3 % (37.0-47.0); Hemoglobin 14.2 g/dL (12.0-15.0); Immature Granulocyte Absolute 0.04 K/mm3 (0.00-0.031); Immature Granulocyte Percent A 0.5 % (0-0.5); Lymphocytes Absolute Auto 0.94 K/mm3 (0.9-3.2); Lymphocytes Percent Auto 10.8 % (18.3-44.2); Mean Corpuscular HGB Conc 32.8 g/dl (32-36); Mean Corpuscular Hemoglobin 31.1 pg (26-34); Mean Corpuscular Volume 94.7 fl (80-100); Mean Platelet Volume 10.1 fl (7.4-10.4); Monocytes Absolute Auto 0.8 K/mm3 (0.1-0.6); Monocytes Percent Auto 8.8 % (2.6-8.5); Neutrophils Absolute Auto 6.7 K/mm3 (1.3-6.7); Neutrophils Percent Auto 76.7 % (45.5-73.1); Platelet Count Result 254 k/mm3 (150-375); Red Blood Count 4.57 M/mm3 (4.2-5.4); Red Cell Distribution Width 13.8 % (11.5-14.5); White Blood Count 8.7 K/mm3 (4.5-10.0)
[2023-11-27 20:02] LABS: Alanine Aminotransferase 20 U/L (6-35); Albumin Level 4.2 g/dL (3.5-5.1); Alkaline Phosphatase 93 U/L (38-126); Anion Gap 7 mmol/L (4-12); Aspartate Amino Transferase 26 U/L (14-36); Bilirubin,Total 1.5 mg/dL (0.2-1.3); Blood Urea Nitrogen 19 mg/dL (7-17); Calcium 9.7 mg/dL (8.4-10.2); Carbon Dioxide 27 mmol/L (22-30); Chloride 106 mmol/L (98-107); Estimated CRCL calculation 41 ml/min; Estimated Glomerular Filt Rate > 60; Glucose 106 mg/dL (65-110); Potassium 4.1 mmol/L (3.4-5.0); Sodium 140 mmol/L (137-145)
[2023-11-27 20:13] LABS: Troponin I < 0.012 ng/mL (0.000-0.034)
[2023-11-27] MEDS: SODIUM CHLORIDE 0.9% IV 500 ML 999 ML IV CONT (20:59)
[2023-11-27 21:45] VITALS: BP 146/86; PULSE 100; RESP 18; O2SAT 98
[2023-11-27 21:45] LABS: Appearance Urine Clear (Clear); Bacteria Urine 4+ /hpf; Bilirubin Urine Negative (Negative); Blood Urine Negative (Negative); Color Urine Dark Yellow (Yellow); Glucose Urine UA Negative (Negative); Ketones Urine Negative (Negative); Leukocyte Esterase Ur Trace LEU/UL (Negative); Nitrate Urine Negative (Negative); Non Pathogenic Casts 0-2; Protein Urine Negative (Negative); RBC Urine 0-2 /hpf (0-2); Specific Grav Ur 1.012 (1.001-1.035); Squamous Epithelial Cell Urine None Seen /hpf (Few); WBC Urine 0-5 /hpf (0-3)
[2023-11-27 21:49] LABS: Add Urine Microscopic? YES
== END 2023-11-27 22:28 | disposition home or self-care (01) ==
PROVIDERS: Emergency Provider Physician Assistant
DX: S09.90XA Unspecified injury of head, initial encounter (principal); S39.92XA Unspecified injury of lower back, initial encounter; R82.998 Other abnormal findings in urine; I12.9 Hypertensive chronic kidney disease with stage 1 through stage 4 chronic kidney disease, or unspecified chronic kidney disease; N18.9 Chronic kidney disease, unspecified; F03.90 Unspecified dementia, unspecified severity, without behavioral disturbance, psychotic disturbance, mood disturbance, and anxiety; E78.5 Hyperlipidemia, unspecified; E03.9 Hypothyroidism, unspecified; K21.9 Gastro-esophageal reflux disease without esophagitis; Z90.710 Acquired absence of both cervix and uterus; Z90.49 Acquired absence of other specified parts of digestive tract; R00.0 Tachycardia, unspecified; I49.1 Atrial premature depolarization; I45.10 Unspecified right bundle-branch block; Y93.H2 Activity, gardening and landscaping; W18.39XA Other fall on same level, initial encounter
CPT/HCPCS: 36415; 70450; 71045; 72125; 72131; 73521; 80053; 81001; 84484; 85025; 87077; 87086; 87088; 93005; 96360; 99284; J7040

== ENCOUNTER 2024-02-20 13:00 | Inpatient (IN) | payer OTHER, SELFPAY ==
[2024-02-20] VITALS (20 sets, daily range): BP systolic 127–170; BP diastolic 67–102; PULSE 98–114; RESP 14–24; TEMP 36.7–37.1; O2SAT 93–98; BMI 25.6
--- NOTE | ~2024-02-20 | XR_ITS ---
EXAMINATION: XR chest 1V portable Exam Date/Time: 02/22/2024 18:05 CDT HISTORY: Shortness of breath Comparison: 11/27/2023; CT CAP 12/06/2022. RESULT: Lines, tubes, and devices: Cholecystomy clips. Lungs and pleura: Low volumes with crowding. Mild diffuse reticular opacities. Subsegmental left bas ilar opacities. Mild left costophrenic angle blunting. Cardiomediastinal silhouette: Stable. Hiatal hernia. Other: No acute osseous or upper abdominal finding. IMPRESSION: Subsegmental left basilar atelectasis/consolidation. Possible small left pleural effusion. Reviewed, dictated and finalized at location K. IMPRESSION: Subsegmental left basilar atelectasis/consolidation. Possible small left pleura l effusion.
--- NOTE | ~2024-02-20 | MR_ITS ---
MR MRCP wo/w con/w 3D wo ind Ordering provider: Mendoza Britton MD History: . Transaminitis status post cholecystectomy . Comparison: None. Technique: MRCP abdomen of the abdomen was performed with and without IV gadolinium contrast. Maximum intensity projection images of the biliary system was performed and 3D reconstructed images were sub sequently obtained per protocol. FINDINGS: VISUALIZED LOWER CHEST: No definite abnormality. UPPER ABDOMINAL ORGANS: Liver: Small cyst in the left lobe of the liver measuring 1 9 CNM. Spleen: Normal. Stomach: Sliding hiatus hernia. Pancreas: Normal. Adrenals: Normal. Kidneys: Small cyst in the right kidney upper pole measuring 0.8 cm. Small cyst in the right kidney l ower pole measuring 0.6 cm. Cyst in the right kidney upper pole measuring 0.9 cm medially. Tiny cysts in the left kidney. BOWEL AND MESENTERY: The bowel and mesentery are normal. No free fluid. RETROPERITONEUM: Normal. SUPERFICIAL SOFT TISSUES: Normal. MARROW: Age appropriate degenerative changes of the spine. Otherwise, normal marrow signal. Levoscoli osis. BILIARY SYSTEM: --GALLBLADDER: Not demonstrated. --CYSTIC DUCT: Not demonstrated. --COMMON DUCT: Dilated measuring 1.4 cm. without stenosis or intraluminal filling defect. --INTRAHEPATIC DUCTS: Slightly dilated intrahepatic ducts. Small filling defect in one of the branche s of the right lobe which may be a stone. --PANCREATIC DUCTS: Main pancreatic duct inserts at the sphincter of RAD and is normal in caliber wit hout stenosis or filling defect. The accessory pancreatic duct is not visualized likely due to small size. IMPRESSION: Dilated common bile duct. No stones seen in the common bile duct. Possible defect in one of the branches of the right lobe of the liver branches which may represent a stone. Bilateral renal cysts. Small cyst in the left lobe of the liver. Sliding status hernia. Reviewed, dictated and finalized at location A.
--- NOTE | ~2024-02-20 | CT_ITS ---
EXAMINATION: CT brain wo con DATE: 02/20/2024 14:44 INDICATION: Headache. TECHNIQUE: Computed tomography (CT) of the head was performed without intravenous contrast. Sagittal and coronal reconstructions were performed. Automated exposure control and iterative reconstruction t echnique were employed. The dose-length product was 1286.33 mGy-cm. COMPARISON: head CT dated 11/27/23 FINDINGS: No acute intracranial hemorrhage, acute infarction or abnormal extra axial fluid collection. There is mild to moderate scattered white matter hypoattenuation consistent with chronic small vessel ischemi c disease. Symmetric prominence of the sulci and ventricles consistent with moderate age-appropriate diffuse cerebral volume loss. No mass/mass effect. Changes of bilateral intraocular lens replacement. The orbits and mastoid air cells are normal. Mild mucosal thickening the bilateral ethmoid sinuses. Unchanged small right mastoid effusion. IMPRESSION: 1. No acute intracranial process. 2. Age-related changes including moderate diffuse volume loss and mild to moderate scattered white ma tter hypoattenuation consistent with chronic small vessel ischemic disease. Reviewed, dictated and finalized at location A. IMPRESSION: 1. No acute intracranial process. 2. Age-related changes including moderate diffuse volume loss and mild to moder ate scattered white matter hypoattenuation consistent with chronic small vessel ischemic disease.
--- NOTE | ~2024-02-20 | XR_ITS ---
EXAMINATION: XR ERCP DATE: 02/21/2024 16:15 CDT INDICATION: STONE . TECHNIQUE: 2 fluoroscopic images of the abdomen were obtained during ERCP, performed by Dr Rufino Alberts. I was not present during the procedure. Fluoroscopy exposure time was 187 seconds. Air Kerma 3 1.33 mGy. DAP 0.33812 mGym2. COMPARISON: None FINDINGS/IMPRESSION: Fluoroscopic documentation of ERCP. Please refer to the operative note for complete procedural detail s . Reviewed, dictated and finalized at location K.
--- NOTE | ~2024-02-20 | CT_ITS ---
EXAMINATION: CT abdomen pelvis w con DATE: 02/20/2024 14:50 INDICATION: Diarrhea TECHNIQUE: Computed tomography (CT) of the abdomen and pelvis was performed with 100 mL Omnipaque-350 intravenous contrast. Automated exposure control and iterative reconstruction technique were employe d. The dose-length product was 846.15 mGy-cm. COMPARISON: 12/06/2022 FINDINGS: Mild elevation the left hemidiaphragm. Mild dependent predominant atelectasis in bilateral lower lung s. Heart size is normal. No pericardial or pleural effusion. Moderate-sized sliding-type hiatal herni a with suture line along the greater curvature of stomach consistent with prior sleeve gastrectomy. 10 mm cyst in the left hepatic lobe. Common bile duct is dilated to 1.3 cm and there is mild to moder ate intrahepatic biliary ductal dilation both which appear increased since the prior study liver with out evident distal obstructing stone or mass. Cholecystectomy clips in the gallbladder fossa. Mild fa tty atrophy of the pancreas. Spleen, bilateral adrenal glands are normal. There are multiple regions of cortical scarring at both kidneys with a few subcentimeter bilateral renal cysts. 5 mm stone or dy strophic parenchymal calcification at the lower pole of the left kidney at the site of a likely prior left renal ablation. 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 The appendix is not visualized. No pericecal inflammatory change to suggest acute appendicitis. There is moderate colonic diverticulosis with a sigmoid predominance. There is no adjacent inflammatory c hange to suggest diverticulitis. No bowel obstruction. Bladder is normal. The uterus is not identifie d and has likely been surgically resected. No free intraperitoneal gas or fluid. No pathologically en larged abdominal or pelvic lymphadenopathy. Small fat-containing left inguinal hernia. Thoracolumbar levoscoliosis and severe spondylosis. Chronic burst and compression fractures at T9, T12, L1 and L3. Old healed left intertrochanteric fracture with internal fixation. IMPRESSION: 1. Interval increase in intra and extrahepatic biliary ductal dilation without evident obstructing st one or mass. This could be secondary to prior cholecystectomy however could not exclude an occult low -density distal obstructing stone. Correlate with liver function tests and consider further evaluatio n with MRCP. 2. Moderate-sized sliding-type hiatal hernia. 3. Small fat-containing left inguinal hernia. Reviewed, dictated and finalized at location A. IMPRESSION: 1. Interval increase in intra and extrahepatic biliary ductal dilation without evident obstructing stone or mass. This could be secondary to prior cholecystec liv however could not exclude an occult low-density distal obstructing stone. Correlate with liver function tests and consider further evaluation with MRCP. 2. Moderate-sized sliding-type hiatal hernia. 3. Small fat-containing left inguinal hernia.
[2024-02-20] MEDS: ONDANSETRON INJ 4 MG/2 ML VIAL IV PUSH (13:25)
--- NOTE | 2024-02-20 13:29 | ED.GENADULT ---
HPI - General Adult General Chief complaint: Nausea/Vomiting/Diarrhea Stated complaint: diarrhea History of Present Illness HPI narrative: 83-year-old female presented to the emergency department for evaluation for diarrhea and headache. Patient lives in assisted living and does have dementia at baseline. Staff states that the patient had multiple episodes of diarrhea last night. Patient has no diarrhea upon arrival emergency department. Patient is only complaining of a headache at this time. Related Data Home Medications Medication Instructions Recorded Confirmed cyanocobalamin (vitamin B-12) 500 1,000 mcg PO DAILY 05/14/22 02/20/24 mcg tablet (Vitamin B-12) cyclobenzaprine 10 mg tablet 10 mg PO BID PRN Muscle Spasm 05/14/22 02/20/24 donepezil 5 mg tablet 10 mg PO HS 05/14/22 02/20/24 eszopiclone 3 mg tablet 3 mg PO HS 05/14/22 02/20/24 ezetimibe 10 mg tablet 10 mg PO DAILY 05/14/22 02/20/24 folic acid 1 mg tablet 1 mg PO DAILY 05/14/22 02/20/24 gabapentin 600 mg tablet 600 mg PO TID 05/14/22 02/20/24 levothyroxine 50 mcg tablet 50 mcg PO DAILY 05/14/22 02/20/24 pantoprazole 40 mg tablet,delayed 40 mg PO BID 05/14/22 02/20/24 release dicyclomine 10 mg capsule See Rx Instructions .Route 12/03/22 02/20/24 .COMPLEX PRN Diarrhea amlodipine 5 mg tablet 5 mg PO DAILY 02/20/24 02/20/24 atorvastatin 10 mg tablet 10 mg PO DAILY 02/20/24 02/20/24 duloxetine 60 mg capsule,delayed 60 mg PO DAILY 02/20/24 02/20/24 release famotidine 20 mg tablet 20 mg PO BID PRN acid reflex 02/20/24 02/20/24 losartan 50 mg tablet 50 mg PO HS 02/20/24 02/20/24 multivitamin with minerals-folic 1 tablet PO DAILY 02/20/24 02/20/24 acid 0.4 mg tablet prednisone 1 mg tablet 4 mg PO DAILY 02/20/24 02/20/24 rivastigmine 9.5 mg/24 hour 1 patch topical DAILY 02/20/24 02/20/24 transdermal patch Allergies Allergy/AdvReac Type Severity Reaction Status Date / Time diphenhydramine AdvReac Agitated Verified 11/27/23 16:28 [From Benadryl] Review of Systems Review of Systems: All systems reviewed & are unremarkable except as noted in HPI and below PMFSH Past Medical History Medical History (Updated 02/20/24 @ 17:54 by Roopa Walker APRN) Abnormal CT scan, esophagus Acquired leg length discrepancy Anemia Bacteremia Chronic GERD Chronic kidney disease Closed intertrochanteric fracture of left hip Compression fracture of thoracic vertebra Dementia Encounter for postoperative care Hyperlipidemia Hypertension Hypothyroidism Trochanteric bursitis, left hip Surgical History Surgical History H/O: hysterectomy Hx of cholecystectomy S/P ORIF (open reduction internal fixation) fracture left hip Family History Family History Father Heart disease Mother Heart disease Sibling Heart disease Malignant neoplasm of prostate Social History Social History Social History: She is and has 4 children . 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 She does not use any alcohol marijuana or illicit drug. Her is the durable power wind plant manager for healthcare. code full code Smoking status: Never smoker Alcohol intake: never Substance use: never Substance use type: does not use Do You Feel Safe in your Home?: Yes Lack of Transportation: No Lack of Food: Never True Current Housing: I Have Housing Concerned About Future Housing: No Difficulty Paying Gas/Electric Bills: No Difficulty Paying for Meds: No Currently Unemployed: No Education: High School Diploma/GED Difficulty w/ Childcare or Family Care: No Living arrangements: with family Gender identity (if verbalized by the patient): Female Spiritual care concerns: No Exam Narrative: APPEARANCE: Well appearing, no pain, no distress, well-nourished. H
--- NOTE | 2024-02-20 13:30 | PC.NURSE ---
Daughter in room and states that pt has chronic head and neck pain. Pt has been worked up for these things.
[2024-02-20 14:10] LABS: Basophils Percent Auto 0.3 % (0.2-1.2); Eosinophils Absolute Auto 0.1 K/mm3 (0-0.3); Hematocrit 45.7 % (37.0-47.0); Immature Granulocyte Absolute 0.02 K/mm3 (0.00-0.031); Immature Granulocyte Percent A 0.3 % (0-0.5); Lymphocytes Absolute Auto 0.28 K/mm3 (0.9-3.2); Lymphocytes Percent Auto 3.9 % (18.3-44.2); Mean Corpuscular HGB Conc 32.8 g/dl (32-36); Mean Corpuscular Hemoglobin 31.3 pg (26-34); Mean Corpuscular Volume 95.2 fl (80-100); Mean Platelet Volume 10.3 fl (7.4-10.4); Monocytes Absolute Auto 0.7 K/mm3 (0.1-0.6); Monocytes Percent Auto 10.1 % (2.6-8.5); Neutrophils Percent Auto 83.4 % (45.5-73.1); Platelet Count Result 232 k/mm3 (150-375); Red Cell Distribution Width 13.6 % (11.5-14.5); White Blood Count 7.2 K/mm3 (4.5-10.0)
[2024-02-20 14:23] LABS: Lactic Acid Reflex 1.9 mmol/L (0.7-2.0)
[2024-02-20 14:26] LABS: Albumin Level 4.2 g/dL (3.5-5.1); Alkaline Phosphatase 270 U/L (38-126); Anion Gap 9 mmol/L (4-12); Bilirubin,Total 3.7 mg/dL (0.2-1.3); Blood Urea Nitrogen 14 mg/dL (7-17); Calcium 9.2 mg/dL (8.4-10.2); Carbon Dioxide 32 mmol/L (22-30); Chloride 97 mmol/L (98-107); Estimated CRCL calculation 41 ml/min; Estimated Glomerular Filt Rate > 60; Glucose 86 mg/dL (65-110); Lipase 65 U/L (23-300); Potassium 3.4 mmol/L (3.4-5.0); Sodium 138 mmol/L (137-145)
[2024-02-20 14:28] LABS: Appearance Urine Clear (Clear); Bacteria Urine 4+ /hpf; Bilirubin Urine 1+ (Negative); Blood Urine Negative (Negative); Color Urine Dark Yellow (Yellow); Glucose Urine UA Negative (Negative); Ketones Urine Trace mg/dL (Negative); Leukocyte Esterase Ur Trace LEU/UL (Negative); Need Manual Microscopic Reviewed; Nitrate Urine Negative (Negative); Non Pathogenic Casts 0-2; Protein Urine 1+ mg/dL (Negative); Specific Grav Ur 1.018 (1.001-1.035); Squamous Epithelial Cell Urine None Seen /hpf (Few); Urobilinogen Urine >=8.0 mg/dL (<2.0); WBC Urine 0-5 /hpf (0-3)
[2024-02-20 14:37] LABS: Add Urine Microscopic? YES
[2024-02-20 14:48] LABS: Alanine Aminotransferase 1037 U/L (6-35)
[2024-02-20 14:49] LABS: Aspartate Amino Transferase 2078 U/L (14-36)
--- NOTE | 2024-02-20 14:58 | PC.NURSE ---
No diarrhea stools since arrival.
[2024-02-20] MEDS: SODIUM CHLORIDE 0.9% IV 1,000 ML 999 ML IV CONT ×2 (15:31→17:40)
--- NOTE | 2024-02-20 15:47 | PM.IMHP ---
H&P: HPI History of Present Illness Date/Time: 02/20/24 15:47 Chief Complaint: Diarrhea Narrative: 83 y/o F presents here with diarrhea with PMH of anemia, GERD, CKD, dementia, HLD, HTN, and hypothyroidism. The patient presents here via EMS from [facility] ([facility]) for further evaluation of diarrhea. Patient began experiencing large volume diarrhea last night around midnight. Per , she had 3 episodes of diarrhea. Patient was able to make it to the bathroom for one episode, second episode occurred while she was in the hallway trying to make it to the restroom and the third occurred while she was still in bed. Has had 3 stools in the last 24 hours. Prior to diarrhea starting she spent the day in bed, but this is not unusual for her. She has chronic intermittent diarrhea. She reports associated headache, has frequent headaches at baseline. Denies accompanying abdominal pain, fever, chills, body aches, nausea, vomiting. Per review of outside med rec, the patient was last on abx in November of 2023 (Cipro). Initial VS at presentation: 98.7? F, HR 109, RR 24, 127/102, and 98% on RA. ED workup showed: No leukocytosis, no anemia, creatinine 0.8 and GFR >60, total bilirubin 3.7, AST 2078, ALT 1037, alk-phos 270, lipase 65, UA suggestive of UTI. CT of the abd/pelvis showed an interval increase in intra and extrahepatic biliary ductal dilation without evident obstructing stone or mass, sliding hiatal hernia, and small fat containing left inguinal hernia. Review of Systems Review of Systems: All systems reviewed & are unremarkable except as noted in HPI and below PMFSH Past Medical History Medical History Abnormal CT scan, esophagus Acquired leg length discrepancy Anemia Bacteremia Chronic GERD Chronic kidney disease Closed intertrochanteric fracture of left hip Compression fracture of thoracic vertebra Dementia Encounter for postoperative care Hyperlipidemia Hypertension Hypothyroidism Trochanteric bursitis, left hip Surgical History Surgical History H/O: hysterectomy Hx of cholecystectomy S/P ORIF (open reduction internal fixation) fracture left hip Family History Family History Father Heart disease Mother Heart disease Sibling Heart disease Malignant neoplasm of prostate Social History Social History Social History: She is and has 4 children . 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 She does not use any alcohol marijuana or illicit drug. Her is the durable power optical glass silverer for healthcare. code full code Smoking status: Never smoker Alcohol intake: never Substance use: never Substance use type: does not use Do You Feel Safe in your Home?: Yes Lack of Transportation: No Lack of Food: Never True Current Housing: I Have Housing Concerned About Future Housing: No Difficulty Paying Gas/Electric Bills: No Difficulty Paying for Meds: No Currently Unemployed: No Education: High School Diploma/GED Difficulty w/ Childcare or Family Care: No Living arrangements: with family Gender identity (if verbalized by the patient): Female Spiritual care concerns: No Meds Home Medications and Allergies Home Medications Medication Instructions Recorded Confirmed Type cyanocobalamin (vitamin B-12) 500 1,000 mcg PO DAILY 05/14/22 02/20/24 History mcg tablet (Vitamin B-12) cyclobenzaprine 10 mg tablet 10 mg PO BID PRN Muscle Spasm 05/14/22 02/20/24 History donepezil 5 mg tablet 10 mg PO HS 05/14/22 02/20/24 History eszopiclone 3 mg tablet 3 mg PO HS 05/14/22 02/20/24 History ezetimibe 10 mg tablet 10 mg PO DAILY 05/14/22 02/20/24 History folic acid 1 mg tablet 1 mg PO DAILY 05/14/22 02/20/24 History gabapentin
--- NOTE | 2024-02-20 16:51 | ADMGEN ---
This patient, Malini Joe, was admitted to Medical Room 246-01. Patient/family oriented to hospital policies and general routines including ID bracelet, bed and alarms, visiting hours, pain management, procedures, bathroom and other care routines, personal items, smoking policy, room service/diet, and visiting hours. Information on how to activate the Rapid Response Team has been discussed. Patient/Family are encouraged to report perceived risks to care and to ask questions if they do not understand what they are told or what they should do.
[2024-02-20] MEDS: SODIUM CHLORIDE 0.9% IV 1,000 ML 125 ML IV CONT (17:39)
[2024-02-20 18:14] LABS: Magnesium 1.8 mg/dL (1.6-2.3)
[2024-02-20 18:32] LABS: Procalcitonin 0.7 ng/mL
[2024-02-20] MEDS: AMPICILLIN 1 GM/NS 50 ML 1 GM/50 ML BAG IVPB ×2 (21:17→23:41)
[2024-02-20] MEDS: PANTOPRAZOLE 40 MG TABLET PO (21:18)
[2024-02-20] MEDS: GABAPENTIN 300 MG CAPSULE 600 MG PO (21:18)
[2024-02-20] MEDS: DONEPEZIL HCL 5 MG TABLET 10 MG PO (21:20)
[2024-02-20] MEDS: LOSARTAN POTASSIUM 50 MG TABLET PO (21:20)
[2024-02-21] VITALS (19 sets, daily range): BP systolic 135–195; BP diastolic 65–117; PULSE 78–123; RESP 14–38; TEMP 36.1–36.8; O2SAT 92–100
[2024-02-21] MEDS: ONDANSETRON INJ 4 MG/2 ML VIAL IV PUSH ×2 (01:40→10:22)
[2024-02-21] MEDS: LEVOTHYROXINE SODIUM 50 MCG TABLET PO (05:07)
[2024-02-21] MEDS: SODIUM CHLORIDE 0.9% IV 1,000 ML 125 ML IV CONT ×2 (05:07→21:26)
[2024-02-21] MEDS: GABAPENTIN 300 MG CAPSULE 600 MG PO ×2 (05:07→21:24)
[2024-02-21] MEDS: AMPICILLIN 1 GM/NS 50 ML 1 GM/50 ML BAG IVPB (05:07)
[2024-02-21 05:59] LABS: Basophils Percent Auto 0.3 % (0.2-1.2); Eosinophils Absolute Auto 0.2 K/mm3 (0-0.3); Eosinophils Percent Auto 1.2 % (0-4.4); Hematocrit 40.7 % (37.0-47.0); Hemoglobin 13.3 g/dL (12.0-15.0); Immature Granulocyte Absolute 0.09 K/mm3 (0.00-0.031); Immature Granulocyte Percent A 0.7 % (0-0.5); Lymphocytes Percent Auto 3.9 % (18.3-44.2); Mean Corpuscular HGB Conc 32.7 g/dl (32-36); Mean Corpuscular Volume 94.9 fl (80-100); Mean Platelet Volume 10.4 fl (7.4-10.4); Monocytes Absolute Auto 0.7 K/mm3 (0.1-0.6); Monocytes Percent Auto 5.3 % (2.6-8.5); Neutrophils Absolute Auto 11.5 K/mm3 (1.3-6.7); Neutrophils Percent Auto 88.6 % (45.5-73.1); Platelet Count Result 209 k/mm3 (150-375); Red Blood Count 4.29 M/mm3 (4.2-5.4); Red Cell Distribution Width 13.7 % (11.5-14.5); White Blood Count 12.9 K/mm3 (4.5-10.0)
[2024-02-21 06:24] LABS: Alanine Aminotransferase 584 U/L (6-35); Albumin Level 3.5 g/dL (3.5-5.1); Alkaline Phosphatase 224 U/L (38-126); Anion Gap 11 mmol/L (4-12); Aspartate Amino Transferase 554 U/L (14-36); Blood Urea Nitrogen 8 mg/dL (7-17); Calcium 8.3 mg/dL (8.4-10.2); Carbon Dioxide 24 mmol/L (22-30); Chloride 101 mmol/L (98-107); Estimated CRCL calculation 53 ml/min; Estimated Glomerular Filt Rate > 60; Glucose 100 mg/dL (65-110); Magnesium 1.5 mg/dL (1.6-2.3); Sodium 136 mmol/L (137-145)
--- NOTE | 2024-02-21 07:51 | P.CONGI_ITS ---
I, Sergey Harden MD, have provided a substantive portion of the care of this patient and discussed the patient with my Nurse Practitioner. I have reviewed any new relevant radiographic and laboratory results including medications. I agree with her documentation as noted below.?I personally performed the medical decision making and much of the history and exam for this encounter. briefly, she has dementia, GERD- EGD 2022 with grade II esophagitis- here with diarrhea and incontinence, he is not best historian. Blood work noted bili 4, also dilated bile duct (she is post cholecystectomy), started on abx, MRCP showed possible small stone in hepatic duct, no stone in bile duct. Plan is to proceed with ERCP given new onset of jaundice to assess biliary system, ? ampullary stenosis, etc. This was discussed with family members. Assessment and Plan Assessment and plan (1) Dilation of common bile duct: Code(s): K83.8 - Other specified diseases of biliary tract Status: Acute (2) Diarrhea: Qualifiers: Diarrhea type: unspecified type Qualified Code(s): R19.7 - Diarrhea, unspecified Code(s): R19.7 - Diarrhea, unspecified Status: Acute (3) Elevated LFTs: Code(s): R79.89 - Other specified abnormal findings of blood chemistry Status: Acute (4) GERD with esophagitis: Qualifiers: Esophagitis bleeding: without hemorrhage Qualified Code(s): K21.00 - Gastro-esophageal reflux disease with esophagitis, without bleeding Code(s): K21.00 - Gastro-esophageal reflux disease with esophagitis, without bleeding Status: Acute (5) Fecal incontinence: Qualifiers: Fecal incontinence type: full incontinence of feces Qualified Code(s): R15.9 - Full incontinence of feces Code(s): R15.9 - Full incontinence of feces Status: Acute (6) Hypokalemia: Code(s): E87.6 - Hypokalemia Status: Acute Plan 1. Elevated LFT's / dilated common bile duct: Patient's liver enzymes are trending down since admission with Total bilirubin 3.7 --> 4.0, AST 2078-->554, ALT 1037-->584, Alkaline phosphatase 270 --> 224. Lipase 65.CT abdomen/pelvis showed dilated common bile duct to 1.3 cm and mild to moderate intrahepatic biliary ductal dilation, increased since prior study, without evident distal obstructing stone or mass. Scheduled for MRCP today to further evaluate for occult stone. If stone identified, will proceed with ERCP this afternoon for stone extraction. DDX: Choledocholithiasis VS Biliary stricture VS Extrinsic compression of common bile duct * MRCP today * ERCP if stone identified on MRCP * Continue to trend liver enzymes 2. Diarrhea / fecal incontinence: Last colonoscopy thought to be > 5 years ago but no reports were available. Patient presented with acute onset of large volume diarrhea and fecal incontinence starting the night before last. No blood or black stools. Denies any abdominal pain. Denies BM since admission. Prior to this week the patient normally had formed non urgent stools every 1-2 days with occasional episodes of diarrhea that responded well to OTC antidiarrheals. DDX: C. diff colitis VS Viral gastroenteritis VS Overflow diarrhea from fecal impaction VS Medication side effect * Stool studies pending collection including C-Diff * Patient currently on Zosyn * Continue dicyclomine if C. diff negative and diarrhea persists * May consider outpatient colonoscopy if diarrhea does not improve 3. GERD with esophagitis: EGD on 12/06/2022 showed grade 2 reflux esophagitis and medium hiatal hernia. MEDIATION COMMISSIONER patient was on pantoprazole 40 mg twice
--- NOTE | 2024-02-21 07:51 | WPDGICN ---
Assessment and Plan Assessment and plan (1) Dilation of common bile duct: Code(s): K83.8 - Other specified diseases of biliary tract Status: Acute (2) Diarrhea: Qualifiers: Diarrhea type: unspecified type Qualified Code(s): R19.7 - Diarrhea, unspecified Code(s): R19.7 - Diarrhea, unspecified Status: Acute (3) Elevated LFTs: Code(s): R79.89 - Other specified abnormal findings of blood chemistry Status: Acute (4) GERD with esophagitis: Qualifiers: Esophagitis bleeding: without hemorrhage Qualified Code(s): K21.00 - Gastro-esophageal reflux disease with esophagitis, without bleeding Code(s): K21.00 - Gastro-esophageal reflux disease with esophagitis, without bleeding Status: Acute (5) Fecal incontinence: Qualifiers: Fecal incontinence type: full incontinence of feces Qualified Code(s): R15.9 - Full incontinence of feces Code(s): R15.9 - Full incontinence of feces Status: Acute (6) Hypokalemia: Code(s): E87.6 - Hypokalemia Status: Acute Plan 1. Elevated LFT's / dilated common bile duct: Patient's liver enzymes are trending down since admission with Total bilirubin 3.7 --> 4.0, AST 2078-->554, ALT 1037-->584, Alkaline phosphatase 270 --> 224. Lipase 65.CT abdomen/pelvis showed dilated common bile duct to 1.3 cm and mild to moderate intrahepatic biliary ductal dilation, increased since prior study, without evident distal obstructing stone or mass. Scheduled for MRCP today to further evaluate for occult stone. If stone identified, will proceed with ERCP this afternoon for stone extraction. DDX: Choledocholithiasis VS Biliary stricture VS Extrinsic compression of common bile duct MRCP today ERCP if stone identified on MRCP Continue to trend liver enzymes 2. Diarrhea / fecal incontinence: Last colonoscopy thought to be > 5 years ago but no reports were available. Patient presented with acute onset of large volume diarrhea and fecal incontinence starting the night before last. No blood or black stools. Denies any abdominal pain. Denies BM since admission. Prior to this week the patient normally had formed non urgent stools every 1-2 days with occasional episodes of diarrhea that responded well to OTC antidiarrheals. DDX: C. diff colitis VS Viral gastroenteritis VS Overflow diarrhea from fecal impaction VS Medication side effect Stool studies pending collection including C-Diff Patient currently on Zosyn Continue dicyclomine if C. diff negative and diarrhea persists May consider outpatient colonoscopy if diarrhea does not improve 3. GERD with esophagitis: EGD on 12/06/2022 showed grade 2 reflux esophagitis and medium hiatal hernia. SUPERVISOR INCISING patient was on pantoprazole 40 mg twice daily and famotidine 20 mg twice daily and reflux was well controlled. Continue current PPI and H2 gabriel therapy 4. Hypokalemia: Labs today showed sodium 136 and potassium 3.0. May be secondary to GI fluid loss? Primary care team to continue monitoring and correct Thank you very much for allowing me to share in the care of this very nice patient. This report may have been done utilizing a voice recognition system. Attempts have been made to correct errors. However, there may be uncorrected grammatical, spelling, and recognition errors present. GI Consult Note Consult date/time: 02/21/24 07:51 Reason for consult: Transaminitis HPI: This is a pleasant 83 year old female with a past medical surgical history of dementia, CKD, HLD, HTN, hypothyroidism, GERD, hysterectomy, cholecystectomy, and chronic diarrhea she presented to the ER room 02/20/2024 with complaints of large volume diarrhea and fecal incontinence. GI consulted for transaminitis.The patient was accompanied by her Robert who was at her bedside throughout the entire visit. Patient was last seen in our office on 12/06/[address] showing esophagit
--- NOTE | 2024-02-21 08:15 | PM.IMPN ---
Progress Note: A&P Assessment and Plan (1) Transaminitis: Code(s): R74.01 - Elevation of levels of liver transaminase levels Status: Acute (2) Diarrhea: Qualifiers: Diarrhea type: unspecified type Qualified Code(s): R19.7 - Diarrhea, unspecified Code(s): R19.7 - Diarrhea, unspecified Status: Acute (3) Dementia: Code(s): F03.90 - Unspecified dementia, unspecified severity, without behavioral disturbance, psychotic disturbance, mood disturbance, and anxiety Status: Acute (4) Hypokalemia: Code(s): E87.6 - Hypokalemia Status: Acute (5) Hypertension: Qualifiers: Hypertension type: primary hypertension Qualified Code(s): I10 - Essential (primary) hypertension Code(s): I10 - Essential (primary) hypertension Status: Chronic (6) Hyperlipidemia: Qualifiers: Hyperlipidemia type: mixed hyperlipidemia Qualified Code(s): E78.2 - Mixed hyperlipidemia Code(s): E78.5 - Hyperlipidemia, unspecified Status: Chronic (7) Hypothyroidism: Qualifiers: Hypothyroidism type: acquired Qualified Code(s): E03.9 - Hypothyroidism, unspecified Code(s): E03.9 - Hypothyroidism, unspecified Status: Chronic (8) Dilation of common bile duct: Code(s): K83.8 - Other specified diseases of biliary tract Status: Acute Plan Transaminitis/dilation of common bile duct AST 2078->554/ALT 1037->584/ALKPHO 270->[address] ABD dilation of the bile duct IV Fluids NPO MRCP scheduled for 02/21/2024 ERCP if needed PPI Diarrhea Reports chronic intermittent diarrhea 3 episodes prior to arrival no further diarrhea noted C diff sample order Stool cultures ordered IV fluids Monitor electrolytes replenish as needed keep K+ >4.0 and mag >2.0 40 meq K and 2g mag given Hypokalemia 3.0 40 meq f/u BMP HX HLD: resume statin HX HTN: Resumed amlodipine HX dementia: Resumed donepezil HX GERD: PPI HX hypothyroidism: Resumed levothyroxine Code status: Full code per patient DVT prophylaxis: SCD Stress ulcer prophylaxis: Protonix 40 daily PT/OT notes: PT/OT pending Disposition: Patient was admitted to the medical unit for further evaluation treatment of transaminitis with common bile duct dilation will have MRCP 02/20, patient currently lives at [facility] with plan will likely be to discharge back to [facility]. Time Spent With Patient Time with patient: 15 - 25 minutes Subjective Date/time seen: 02/21/24 08:15 Interval history: Admission: 83 y/o F presents here with diarrhea with PMH of anemia, GERD, CKD, dementia, HLD, HTN, and hypothyroidism. The patient presents here via EMS from [facility] ([facility]) for further evaluation of diarrhea. Patient began experiencing large volume diarrhea last night around midnight. Per , she had 3 episodes of diarrhea. Patient was able to make it to the bathroom for one episode, second episode occurred while she was in the hallway trying to make it to the restroom and the third occurred while she was still in bed. Has had 3 stools in the last 24 hours. Prior to diarrhea starting she spent the day in bed, but this is not unusual for her. She has chronic intermittent diarrhea. She reports associated headache, has frequent headaches at baseline. Denies accompanying abdominal pain, fever, chills, body aches, nausea, vomiting. Per review of outside med rec, the patient was last on abx in November of 2023 (Cipro). Initial VS at presentation: 98.7? F, HR 109, RR 24, 127/102, and 98% on RA. ED workup showed: No leukocytosis, no anemia, creatinine 0.8 and GFR >60, total bilirubin 3.7, AST 2078, ALT 1037, alk-phos 270, lipase 65, UA suggestive of UTI. CT of the abd/pelvis showed an interval increase in intra and extrahepatic biliary ductal dilation without evident obstructing stone or mass, sliding
[2024-02-21] MEDS: PIPERACILLN/TAZ 3.375GM/NS50ML 3.375 GM/50 ML BAG IVPB ×3 (08:59→23:42)
[2024-02-21] MEDS: MAGNESIUM SULF 2 GM/WATER 50ML 2 GM/50 ML BAG IVPB (09:40)
[2024-02-21] MEDS: POTASSIUM CHLORIDE INJ 40 MEQ in SODIUM CHLORIDE 0.9% IV 500 ML 130 MEQ IVPB (11:06)
--- NOTE | 2024-02-21 14:53 | PC.NURSE ---
To GI Lab via [facility]. Report called to Nicolas RAJPUT.
[2024-02-21] MEDS: LACTATED RINGERS 1,000 ML 150 ML IV CONT (15:11)
--- NOTE | 2024-02-21 15:19 | WPDANESEPPF ---
Anes - Initial Pre Proc Eval Procedure: Operation Date: 02/21/24 17:30 Proposed Procedures p Endoscopic Retro Cholangiopancreatogram - Sergey Harden MD Date/Time: 02/21/24 15:19 Surgeon: Roberta Minaya APRN Pre Op Diagnosis: Diarrhea/Transaminitis Patient Data Age: 83 Gender: F Height: 1.63 m Weight: 67.8 kg Last Vital Signs Temp 36.1 C L 02/21/24 15:00 Pulse 97 02/21/24 15:00 Resp 22 H 02/21/24 15:00 BP 161/65 H 02/21/24 15:00 Pulse Ox 96 02/21/24 15:00 O2 Del Method Room Air 02/21/24 15:00 FiO2 21 02/21/24 08:51 Allergies Allergy/AdvReac Type Severity Reaction Status Date / Time diphenhydramine AdvReac Agitated Verified 11/27/23 16:28 [From [facility]] Home Medications Medication Instructions Recorded Confirmed Type cyanocobalamin (vitamin B-12) 500 1,000 mcg PO DAILY 05/14/22 02/20/24 History mcg tablet (Vitamin B-12) cyclobenzaprine 10 mg tablet 10 mg PO BID PRN Muscle Spasm 05/14/22 02/20/24 History donepezil 5 mg tablet 10 mg PO HS 05/14/22 02/20/24 History eszopiclone 3 mg tablet 3 mg PO HS 05/14/22 02/20/24 History ezetimibe 10 mg tablet 10 mg PO DAILY 05/14/22 02/20/24 History folic acid 1 mg tablet 1 mg PO DAILY 05/14/22 02/20/24 History gabapentin 600 mg tablet 600 mg PO TID 05/14/22 02/20/24 History levothyroxine 50 mcg tablet 50 mcg PO DAILY 05/14/22 02/20/24 History pantoprazole 40 mg tablet,delayed 40 mg PO BID 05/14/22 02/20/24 History release dicyclomine 10 mg capsule See Rx Instructions .Route 12/03/22 02/20/24 History .COMPLEX PRN Diarrhea amlodipine 5 mg tablet 5 mg PO DAILY 02/20/24 02/20/24 History atorvastatin 10 mg tablet 10 mg PO DAILY 02/20/24 02/20/24 History duloxetine 60 mg capsule,delayed 60 mg PO DAILY 02/20/24 02/20/24 History release famotidine 20 mg tablet 20 mg PO BID PRN acid reflex 02/20/24 02/20/24 History losartan 50 mg tablet 50 mg PO HS 02/20/24 02/20/24 History multivitamin with minerals-folic 1 tablet PO DAILY 02/20/24 02/20/24 History acid 0.4 mg tablet prednisone 1 mg tablet 4 mg PO DAILY 02/20/24 02/20/24 History rivastigmine 9.5 mg/24 hour 1 patch topical DAILY 02/20/24 02/20/24 History transdermal patch Laboratory Tests 02/20/24 02/20/24 02/21/24 17:45 17:47 05:35 WBC 12.9 H K/mm3 (4.5-10.0) RBC 4.29 M/mm3 (4.2-5.4) Hgb 13.3 g/dL (12.0-15.0) Hct 40.7 % (37.0-47.0) MCV 94.9 fl (80-100) MCH 31.0 pg (26-34) MCHC 32.7 g/dl (32-36) RDW 13.7 % (11.5-14.5) Plt Count 209 k/mm3 (150-375) MPV 10.4 fl (7.4-10.4) Immature Gran % (Auto) 0.7 H % (0-0.5) Neut % (Auto) 88.6 H % (45.5-73.1) Lymph % (Auto) 3.9 L % (18.3-44.2) [place] % (Auto) 5.3 % (2.6-8.5) Eos % (Auto) 1.2 % (0-4.4) Baso % (Auto) 0.3 % (0.2-1.2) Lymph # (Auto) 0.50 L K/mm3 (0.9-3.2) [place] # (Auto) 0.7 H K/mm3 (0.1-0.6) Eos # (Auto) 0.2 K/mm3 (0-0.3) Baso # (Auto) 0.0 K/mm3 (0.0-0.1) Abs Immat Gran (auto) 0.09 H K/mm3 (0.00-0.031) Absolute Neuts (auto) 11.5 H K/mm3 (1.3-6.7) Absolute Nucleated RBC 0.000 K/mm3 (0.0-0.012) Nucleated RBC % 0.0 % (0.0-0.2) Sodium 136 L mmol/L (137-145) Potassium 3.0 L mmol/L (3.4-5.0) Chloride 101 mmol/L (98-107) Carbon Dioxide 24 mmol/L (22-30) Anion Gap 11 mmol/L (4-12) BUN 8 D mg/dL (7-17) Creatinine 0.60 L mg/dL (0.7-1.0) Estim Creat Clear Calc 53 ml/min Estimated GFR > 60 (59 - ) Glucose 100 mg/dL (65-110) Calcium 8.3 L mg/dL (8.4-10.2) Magnesium 1.8 mg/dL 1.5 L mg/dL (1.6-2.3) (1.6-2.3) Total Bilirubin 4.0 H mg/dL (0.2-1.3) AST 554 H U/L (14-36) AL
[2024-02-21] MEDS: hydrALAZINE HCL 20 MG/ML VIAL 5 MG IV PUSH ×2 (18:39→19:04)
--- NOTE | 2024-02-21 18:42 | SUR.PHASEII ---
1828- Notified Roberta Omer CRNA for pt's blood pressure. 1832- Gregor Omer here to see patient. Orders received for Hydralazine 5mg IVP. 1838- 5mg Hydralazine IVP given.
--- NOTE | 2024-02-21 19:09 | SUR.PHASEII ---
1905- Notified Gregor Omer CRNA of pt's blood pressure. Order for 5mg Hydralazine IVP. Okay to take back to the floor once systolic is 160s.
--- NOTE | 2024-02-21 19:15 | PC.NURSE ---
Returned from GI Lab via stretcher.
[2024-02-21] MEDS: LOSARTAN POTASSIUM 50 MG TABLET PO (21:24)
[2024-02-21] MEDS: DONEPEZIL HCL 5 MG TABLET 10 MG PO (21:24)
[2024-02-21] MEDS: PANTOPRAZOLE 40 MG TABLET PO (21:24)
[2024-02-22] VITALS (13 sets, daily range): BP systolic 127–148; BP diastolic 70–90; PULSE 86–119; RESP 18–20; TEMP 36.4–37.1; O2SAT 94–96
[2024-02-22] MEDS: SODIUM CHLORIDE 0.9% IV 1,000 ML 125 ML IV CONT ×2 (01:51→11:01)
[2024-02-22 05:19] LABS: Hematocrit 39.7 % (37.0-47.0); Hemoglobin 13.1 g/dL (12.0-15.0); Mean Corpuscular Hemoglobin 31.1 pg (26-34); Mean Corpuscular Volume 94.3 fl (80-100); Mean Platelet Volume 10.2 fl (7.4-10.4); Platelet Count Result 229 k/mm3 (150-375); Red Blood Count 4.21 M/mm3 (4.2-5.4); Red Cell Distribution Width 13.7 % (11.5-14.5)
[2024-02-22 05:30] LABS: Alanine Aminotransferase 368 U/L (6-35); Albumin Level 3.4 g/dL (3.5-5.1); Alkaline Phosphatase 185 U/L (38-126); Anion Gap 11 mmol/L (4-12); Aspartate Amino Transferase 137 U/L (14-36); Bilirubin,Total 2.2 mg/dL (0.2-1.3); Blood Urea Nitrogen 8 mg/dL (7-17); Calcium 8.1 mg/dL (8.4-10.2); Carbon Dioxide 22 mmol/L (22-30); Chloride 103 mmol/L (98-107); Estimated CRCL calculation 53 ml/min; Estimated Glomerular Filt Rate > 60; Glucose 85 mg/dL (65-110); Sodium 136 mmol/L (137-145)
[2024-02-22] MEDS: GABAPENTIN 300 MG CAPSULE 600 MG PO ×3 (05:57→20:39)
[2024-02-22] MEDS: LEVOTHYROXINE SODIUM 50 MCG TABLET PO (05:57)
[2024-02-22] MEDS: ONDANSETRON INJ 4 MG/2 ML VIAL IV PUSH ×2 (05:57→09:54)
[2024-02-22] MEDS: PIPERACILLN/TAZ 3.375GM/NS50ML 3.375 GM/50 ML BAG IVPB ×4 (05:58→23:06)
[2024-02-22] MEDS: ACETAMINOPHEN 500 MG TABLET PO (06:57)
--- NOTE | 2024-02-22 07:55 | P.PNIM_ITS ---
Progress Note: A&P Assessment and Plan (1) Transaminitis: Code(s): R74.01 - Elevation of levels of liver transaminase levels Status: Acute (2) Diarrhea: Qualifiers: Diarrhea type: unspecified type Qualified Code(s): R19.7 - Diarrhea, unspecified Code(s): R19.7 - Diarrhea, unspecified Status: Acute (3) Dementia: Code(s): F03.90 - Unspecified dementia, unspecified severity, without behavioral disturbance, psychotic disturbance, mood disturbance, and anxiety Status: Acute (4) Hypokalemia: Code(s): E87.6 - Hypokalemia Status: Acute (5) Hypertension: Qualifiers: Hypertension type: primary hypertension Qualified Code(s): I10 - Essential (primary) hypertension Code(s): I10 - Essential (primary) hypertension Status: Chronic (6) Hyperlipidemia: Qualifiers: Hyperlipidemia type: mixed hyperlipidemia Qualified Code(s): E78.2 - Mixed hyperlipidemia Code(s): E78.5 - Hyperlipidemia, unspecified Status: Chronic (7) Hypothyroidism: Qualifiers: Hypothyroidism type: acquired Qualified Code(s): E03.9 - Hypothyroidism, unspecified Code(s): E03.9 - Hypothyroidism, unspecified Status: Chronic (8) Dilation of common bile duct: Code(s): K83.8 - Other specified diseases of biliary tract Status: Acute (9) UTI (urinary tract infection): Qualifiers: Urinary tract infection type: acute cystitis Hematuria presence: without hematuria Qualified Code(s): N30.00 - Acute cystitis without hematuria Code(s): N39.0 - Urinary tract infection, site not specified Status: Acute Plan Transaminitis/dilation of common bile duct * AST 2078->554/ALT 1037->584/ALKPHO 270->224 * GI consulted * CT ABD dilation of the bile duct * IV Fluids * Blood cultures NGTD * NPO * MRCP scheduled for 02/21/2024 ERCP if needed * PPI 02/22/2024: * ERCP unable to reach bile duct * Per GI start full liquid diet and monitor for downtrend of liver enzymes if they worsen she may need transferred for another attempt at ERCP * Enzymes continue a downtrend today Diarrhea * Reports chronic intermittent diarrhea * 3 episodes prior to arrival no further diarrhea noted * C diff sample order * Stool cultures ordered * IV fluids * Monitor electrolytes replenish as needed keep K+ >4.0 and mag >2.0 * 40 meq K and 2g mag given UTI * Last UA with enterococcus * Foul smelling urine * Incontinent * Zosyn IV pending cultures to cover GI as well Hypokalemia * 3.0 * 40 meq * f/u BMP 02/22/2024 * potassium 3.0 * 40 meq given HX HLD: resume statin HX HTN: Resumed amlodipine HX dementia: Resumed donepezil HX GERD: PPI HX hypothyroidism: Resumed levothyroxine Code status: Full code per patient DVT prophylaxis: SCD Stress ulcer prophylaxis: Protonix 40 daily PT/OT notes: PT/OT pending Disposition: Patient was admitted to the medical unit for further evaluation treatment of transaminitis with common bile duct dilation had ERCP 02/20, will need to monitor liver enzymes if no improvement will need transferred for another ERCP attempt, patient currently lives at [facility] with plan will likely be to discharge back to [facility]. Time Spent With Patient Time with patient: 15 - 25 minutes Subjective Date/time seen: 02/22/24 07:55 Interval history: Admis
--- NOTE | 2024-02-22 07:55 | PM.IMPN ---
Progress Note: A&P Assessment and Plan (1) Transaminitis: Code(s): R74.01 - Elevation of levels of liver transaminase levels Status: Acute (2) Diarrhea: Qualifiers: Diarrhea type: unspecified type Qualified Code(s): R19.7 - Diarrhea, unspecified Code(s): R19.7 - Diarrhea, unspecified Status: Acute (3) Dementia: Code(s): F03.90 - Unspecified dementia, unspecified severity, without behavioral disturbance, psychotic disturbance, mood disturbance, and anxiety Status: Acute (4) Hypokalemia: Code(s): E87.6 - Hypokalemia Status: Acute (5) Hypertension: Qualifiers: Hypertension type: primary hypertension Qualified Code(s): I10 - Essential (primary) hypertension Code(s): I10 - Essential (primary) hypertension Status: Chronic (6) Hyperlipidemia: Qualifiers: Hyperlipidemia type: mixed hyperlipidemia Qualified Code(s): E78.2 - Mixed hyperlipidemia Code(s): E78.5 - Hyperlipidemia, unspecified Status: Chronic (7) Hypothyroidism: Qualifiers: Hypothyroidism type: acquired Qualified Code(s): E03.9 - Hypothyroidism, unspecified Code(s): E03.9 - Hypothyroidism, unspecified Status: Chronic (8) Dilation of common bile duct: Code(s): K83.8 - Other specified diseases of biliary tract Status: Acute (9) UTI (urinary tract infection): Qualifiers: Urinary tract infection type: acute cystitis Hematuria presence: without hematuria Qualified Code(s): N30.00 - Acute cystitis without hematuria Code(s): N39.0 - Urinary tract infection, site not specified Status: Acute Plan Transaminitis/dilation of common bile duct AST 2078->554/ALT 1037->584/ALKPHO 270->[address] ABD dilation of the bile duct IV Fluids Blood cultures NGTD NPO MRCP scheduled for 02/21/2024 ERCP if needed PPI 02/22/2024: ERCP unable to reach bile duct Per GI start full liquid diet and monitor for downtrend of liver enzymes if they worsen she may need transferred for another attempt at ERCP Enzymes continue a downtrend today Diarrhea Reports chronic intermittent diarrhea 3 episodes prior to arrival no further diarrhea noted C diff sample order Stool cultures ordered IV fluids Monitor electrolytes replenish as needed keep K+ >4.0 and mag >2.0 40 meq K and 2g mag given UTI Last UA with enterococcus Foul smelling urine Incontinent Zosyn IV pending cultures to cover GI as well Hypokalemia 3.0 40 meq f/u BMP 02/22/2024 potassium 3.0 40 meq given HX HLD: resume statin HX HTN: Resumed amlodipine HX dementia: Resumed donepezil HX GERD: PPI HX hypothyroidism: Resumed levothyroxine Code status: Full code per patient DVT prophylaxis: SCD Stress ulcer prophylaxis: Protonix 40 daily PT/OT notes: PT/OT pending Disposition: Patient was admitted to the medical unit for further evaluation treatment of transaminitis with common bile duct dilation had ERCP 02/20, will need to monitor liver enzymes if no improvement will need transferred for another ERCP attempt, patient currently lives at [facility] with plan will likely be to discharge back to [facility]. Time Spent With Patient Time with patient: 15 - 25 minutes Subjective Date/time seen: 02/22/24 07:55 Interval history: Admission: 83 y/o F presents here with diarrhea with PMH of anemia, GERD, CKD, dementia, HLD, HTN, and hypothyroidism. The patient presents here via EMS from [facility] ([facility]) for further evaluation of diarrhea. Patient began experiencing large volume diarrhea last night around midnight. Per , she had 3 episodes of diarrhea. Patient was able to make it to the bathroom for one episode, second episode occurred while she was in the hallway trying to make it to the restroom and the third occurred while she was still in
[2024-02-22] MEDS: POTASSIUM CHLORIDE INJ 40 MEQ in SODIUM CHLORIDE 0.9% IV 500 ML 130 MEQ IVPB (08:51)
[2024-02-22 09:34] LABS: Magnesium 1.8 mg/dL (1.6-2.3)
[2024-02-22] MEDS: KETOROLAC 30 MG/ML VIAL (*BKC) IV PUSH (09:54)
[2024-02-22] MEDS: PANTOPRAZOLE 40 MG TABLET PO ×2 (10:59→20:39)
[2024-02-22] MEDS: carvediloL 3.125 MG TABLET PO ×2 (10:59→20:39)
[2024-02-22] MEDS: DULoxetine HCL 60 MG CAPSULE.DR PO (10:59)
[2024-02-22] MEDS: THERAPEUTIC MULTIVITAMINS/MINERALS TAB (*BKC) 1 TABLET PO (10:59)
[2024-02-22] MEDS: CYANOCOBALAMIN 1,000 MCG TABLET 1000 MCG PO (11:00)
[2024-02-22] MEDS: amLODIPine BESYLATE 5 MG TABLET PO (11:00)
[2024-02-22] MEDS: predniSONE 1 MG TABLET 4 MG PO (11:00)
[2024-02-22] MEDS: FOLIC ACID 1 MG TABLET PO (11:00)
[2024-02-22] MEDS: RIVASTIGMINE TARTRATE 9.5 MG PATCH 1 PATCH TRANSDERM (11:01)
[2024-02-22] MEDS: MAGNESIUM SULF 1 GM/D5W 100 ML 1 GM/100 ML BAG IVPB (13:18)
--- NOTE | 2024-02-22 17:18 | WPDGIPROGNO ---
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 with bili coming down will advance diet and monitor (2) Dilation of common bile duct: Code(s): K83.8 - Other specified diseases of biliary tract Status: Acute Assessment and Plan: will need KUB in 3 weeks, if stent still in place then will set up EGD to remove it (3) Diarrhea: Qualifiers: Diarrhea type: unspecified type Qualified Code(s): R19.7 - Diarrhea, unspecified Code(s): R19.7 - Diarrhea, unspecified Status: Acute Assessment and Plan: improved per family Subjective Date/time seen: 02/22/24 17:18 Interval history: ercp yesterday, placed pancreatic stent but unable to cannulate bile duct after multiple attempts she is doing well, no pain and tolerating liquid diet Review of Systems Review of Systems: All systems reviewed & are unremarkable except as noted in HPI and below Exam Narrative: GENERAL: pleasant frail elderly female Alert and oriented x 1. No acute distress. EYES: EOMI. No scleral icterus. PERRLA. HEENT: Moist mucous membranes. LUNGS: Clear to auscultation bilaterally. No accessory muscle use. CARDIOVASCULAR: Regular rate and rhythm. ABDOMEN: Soft, non tenderness and non-distended. No palpable masses. EXTREMITIES: No edema. Non-tender SKIN: No rashes or lesions. Skin warm, dry. NEUROLOGIC: No focal neurological deficits. CN II-XII grossly intact PSYCHIATRIC: Appropriate mood and affect. Objective Data Vital Signs Vital Signs: Vital Signs - 24 hr 02/21/24 17:48 02/21/24 17:58 02/21/24 18:08 Temperature 96.9 F L Pulse Rate 89 87 87 Respiratory Rate 16 14 24 H Blood Pressure 154/92 H 177/98 H 160/91 H Pulse Oximetry 96 100 100 Oxygen Delivery Simple Face Mask Simple Face Mask Room Air Oxygen Flow Rate 6 6 Fraction of Inspired Oxygen 02/21/24 18:18 02/21/24 18:28 02/21/24 18:38 Temperature Pulse Rate 86 87 90 Respiratory Rate 33 H 38 H 23 H Blood Pressure 195/108 H 187/117 H 165/102 H Pulse Oximetry 99 100 100 Oxygen Delivery Room Air Room Air Room Air Oxygen Flow Rate Fraction of Inspired Oxygen 02/21/24 18:48 02/21/24 18:58 02/21/24 19:07 Temperature Pulse Rate 91 96 95 Respiratory Rate 21 H 26 H 31 H Blood Pressure 184/107 H 176/101 H 165/97 H Pulse Oximetry 100 97 100 Oxygen Delivery Room Air Room Air Room Air Oxygen Flow Rate Fraction of Inspired Oxygen 02/21/24 20:21 02/21/24 20:00 02/21/24 20:00 Temperature 98.3 F Pulse Rate 113 H 123 H 113 H Respiratory Rate 18 18 Blood Pressure 150/81 H Pulse Oximetry 99 99 Oxygen Delivery Room Air Oxygen Flow Rate Fraction of Inspired Oxygen 21 02/21/24 22:07 02/22/24 00:15 02/22/24 00:00 Temperature 98.7 F Pulse Rate 110 H 114 H Respiratory Rate 20 Blood Pressure 138/81 Pulse Oximetry 94 Oxygen Delivery CPAP Oxygen Flow Rate Fraction of Inspired Oxygen 02/22/24 04:00 02/22/24 05:02 02/22/24 08:45 Temperature 98.8 F Pulse Rate 107 H 113 H 119 H Respiratory Rate 18 Blood Pressure 143/70 H 148/90 H Pulse Oximetry 96 95 Oxygen Delivery Oxygen Flow Rate Fraction of Inspired Oxygen 02/22/24 10:59 02/22/24 08:50 02/22/24 08:00 Temperature Pulse Rate 119 H 117 H Respiratory Rate Blood Pressure Pulse Oximetry Oxygen Delivery Room Air Oxygen Flow Rate Fraction of Inspired Oxygen 02/22/24 12:00 02/22/24 14:00 02/22/24 16:00 Temperature 97.6 F Pulse Rate 94 110 H 86 Respiratory Rate 18 Blood Pressure 142/82 H Pulse Oximetry 95 Oxygen Delivery Oxygen Flow Rate Fraction of Inspired Oxygen Intake/Output Intake/Output: Intake & Output 02/19/24 02/20/24 02/21/24 02/22/24 23:59 23:59 23:59
[2024-02-22 20:11] LABS: NT Pro B Type Natriuretic Pept 980 pg/mL (19.9-100)
[2024-02-22] MEDS: LOSARTAN POTASSIUM 50 MG TABLET PO (20:39)
[2024-02-22] MEDS: DONEPEZIL HCL 5 MG TABLET 10 MG PO (20:39)
[2024-02-23] VITALS (13 sets, daily range): BP systolic 121–151; BP diastolic 64–86; PULSE 84–104; RESP 16–20; TEMP 36.9–37.1; O2SAT 90–94
[2024-02-23] MEDS: PIPERACILLN/TAZ 3.375GM/NS50ML 3.375 GM/50 ML BAG IVPB ×4 (05:33→23:00)
[2024-02-23] MEDS: LEVOTHYROXINE SODIUM 50 MCG TABLET PO (05:33)
[2024-02-23] MEDS: GABAPENTIN 300 MG CAPSULE 600 MG PO ×3 (05:33→22:57)
[2024-02-23 05:37] LABS: Hematocrit 35.7 % (37.0-47.0); Hemoglobin 11.8 g/dL (12.0-15.0); Mean Corpuscular HGB Conc 33.1 g/dl (32-36); Mean Corpuscular Hemoglobin 31.6 pg (26-34); Mean Corpuscular Volume 95.7 fl (80-100); Mean Platelet Volume 10.1 fl (7.4-10.4); Platelet Count Result 209 k/mm3 (150-375); Red Blood Count 3.73 M/mm3 (4.2-5.4); White Blood Count 15.7 K/mm3 (4.5-10.0)
[2024-02-23 05:52] LABS: Alanine Aminotransferase 236 U/L (6-35); Albumin Level 3.1 g/dL (3.5-5.1); Alkaline Phosphatase 163 U/L (38-126); Anion Gap 8 mmol/L (4-12); Aspartate Amino Transferase 49 U/L (14-36); Bilirubin,Total 1.9 mg/dL (0.2-1.3); Blood Urea Nitrogen 11 mg/dL (7-17); Calcium 8.6 mg/dL (8.4-10.2); Carbon Dioxide 25 mmol/L (22-30); Chloride 103 mmol/L (98-107); Estimated CRCL calculation 46 ml/min; Estimated Glomerular Filt Rate > 60; Glucose 84 mg/dL (65-110); Potassium 3.5 mmol/L (3.4-5.0); Sodium 136 mmol/L (137-145)
[2024-02-23] MEDS: predniSONE 1 MG TABLET 4 MG PO (09:05)
[2024-02-23] MEDS: CYANOCOBALAMIN 1,000 MCG TABLET 1000 MCG PO (09:06)
[2024-02-23] MEDS: carvediloL 3.125 MG TABLET PO ×2 (09:06→20:41)
[2024-02-23] MEDS: PANTOPRAZOLE 40 MG TABLET PO ×2 (09:06→20:40)
[2024-02-23] MEDS: DULoxetine HCL 60 MG CAPSULE.DR PO (09:06)
[2024-02-23] MEDS: hydrOXYzine HCL 25 MG TABLET PO (09:07)
[2024-02-23] MEDS: THERAPEUTIC MULTIVITAMINS/MINERALS TAB (*BKC) 1 TABLET PO (09:07)
[2024-02-23] MEDS: FOLIC ACID 1 MG TABLET PO (09:07)
[2024-02-23] MEDS: RIVASTIGMINE TARTRATE 9.5 MG PATCH 1 PATCH TRANSDERM (09:07)
[2024-02-23] MEDS: amLODIPine BESYLATE 5 MG TABLET PO (09:07)
[2024-02-23] MEDS: METOCLOPRAMIDE HCL INJ 10 MG/2 ML VIAL IV PUSH (09:09)
[2024-02-23] MEDS: SUMAtriptan SUCCINATE 6 MG/0.5 ML VIAL SUB-Q (09:10)
--- NOTE | 2024-02-23 11:33 | PCPTNOTE ---
On 02/23/24, the student, [Bel Ocampo], provided care and completed [facility] documentation on this patient. I have reviewed the student's documentation and agree with the findings.
[2024-02-23] MEDS: FUROSEMIDE INJ 40 MG/4 ML VIAL IV PUSH ×2 (12:36→15:11)
[2024-02-23 14:38] LABS: Hematocrit 37.2 % (37.0-47.0); Hemoglobin 12.4 g/dL (12.0-15.0); Mean Corpuscular HGB Conc 33.3 g/dl (32-36); Mean Corpuscular Hemoglobin 31.2 pg (26-34); Mean Corpuscular Volume 93.7 fl (80-100); Mean Platelet Volume 10.2 fl (7.4-10.4); Platelet Count Result 219 k/mm3 (150-375); Red Blood Count 3.97 M/mm3 (4.2-5.4); Red Cell Distribution Width 13.7 % (11.5-14.5); White Blood Count 17.7 K/mm3 (4.5-10.0)
--- NOTE | 2024-02-23 14:47 | WPDGIPROGNO ---
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, bili still coming down tolerating diet ok to go home by gi standpoint (2) Dilation of common bile duct: Code(s): K83.8 - Other specified diseases of biliary tract Status: Acute Assessment and Plan: will need KUB in 3 weeks, if stent still in place then will set up EGD to remove it (3) Diarrhea: Qualifiers: Diarrhea type: unspecified type Qualified Code(s): R19.7 - Diarrhea, unspecified Code(s): R19.7 - Diarrhea, unspecified Status: Acute Assessment and Plan: improved Subjective Date/time seen: 02/23/24 14:47 Interval history: doing well, no report of abdominal pain or diarrhea, tolerating diet Review of Systems Review of Systems: All systems reviewed & are unremarkable except as noted in HPI and below Exam Narrative: GENERAL: pleasant frail elderly female Alert and oriented x 2. No acute distress. EYES: EOMI. No scleral icterus. PERRLA. HEENT: Moist mucous membranes. LUNGS: Clear to auscultation bilaterally. No accessory muscle use. CARDIOVASCULAR: Regular rate and rhythm. ABDOMEN: Soft, non tenderness and non-distended. No palpable masses. EXTREMITIES: No edema. Non-tender SKIN: No rashes or lesions. Skin warm, dry. NEUROLOGIC: No focal neurological deficits. CN II-XII grossly intact PSYCHIATRIC: Appropriate mood and affect. Objective Data Vital Signs Vital Signs: Vital Signs - 24 hr 02/22/24 16:00 02/22/24 20:34 02/22/24 20:39 Temperature 98.6 F Pulse Rate 86 92 92 Respiratory Rate 18 Blood Pressure 127/71 Pulse Oximetry 94 Oxygen Delivery 02/22/24 20:00 02/22/24 20:00 02/23/24 00:00 Temperature Pulse Rate 90 84 Respiratory Rate Blood Pressure Pulse Oximetry Oxygen Delivery Room Air 02/22/24 23:05 02/23/24 04:00 02/23/24 04:47 Temperature 98.7 F Pulse Rate 90 95 Respiratory Rate 20 Blood Pressure 146/80 H Pulse Oximetry 92 Oxygen Delivery CPAP 02/23/24 09:01 02/23/24 09:06 02/23/24 10:31 Temperature Pulse Rate 103 H 104 H Respiratory Rate Blood Pressure 151/74 H Pulse Oximetry 94 Oxygen Delivery Room Air 02/23/24 09:00 02/23/24 10:54 02/23/24 14:00 Temperature 98.4 F Pulse Rate 91 Respiratory Rate 18 Blood Pressure 121/64 Pulse Oximetry 90 Oxygen Delivery Room Air Room Air Intake/Output Intake/Output: Intake & Output 02/20/24 02/21/24 02/22/24 02/23/24 23:59 23:59 23:59 23:59 Intake Total 1050 2094.8 2612.1 1210 Output Total 250 2200 900 Balance 800 2094.8 412.1 310 Meds/Results Medications: Active Medications Generic Name Dose Route Start Last Admin Trade Name Freq PRN Reason Stop Dose Admin Amlodipine Besylate 5 mg 02/21/24 09:00 02/23/24 09:07 Amlodipine Besylate 5 Mg Tablet PO 5 mg DAILY CASANDRA Administration Carvedilol 3.125 mg 02/22/24 09:00 02/23/24 09:06 Carvedilol 3.125 Mg Tablet PO 3.125 mg Q12HR CASANDRA Administration Cyanocobalamin 1,000 mcg 02/21/24 09:00 02/23/24 09:06 Cyanocobalamin 1,000 Mcg Tablet PO 1,000 mcg DAILY CASANDRA Administration Dicyclomine HCl 1 - 2 mg 02/20/24 17:49 Dicyclomine Hcl 10 Mg Capsule PO PRN PRN Diarrhea Donepezil HCl 10 mg 02/20/24 21:00 02/22/24 20:39 Donepezil Hcl 5 Mg Tablet PO 10 mg HS CASANDRA Administration Duloxetine HCl 60 mg 02/21/24 09:00 02/23/24 09:06 Duloxetine Hcl 60 Mg Capsule.Dr PO 60 mg DAILY CASANDRA Administration Famotidine 20 mg 02/20/24 17:49 Famotidine 20 Mg Tablet PO BID PRN acid reflex Folic Acid 1 mg 02/21/24 09:00 02/23/24 09:07 Folic Acid 1 Mg Tablet PO 1 mg DAILY CASANDRA Administration Gabapentin 600 mg 02/20/24 22:00 02/23/24 05:
[2024-02-23 14:49] LABS: Alanine Aminotransferase 208 U/L (6-35); Albumin Level 3.4 g/dL (3.5-5.1); Alkaline Phosphatase 146 U/L (38-126); Anion Gap 7 mmol/L (4-12); Aspartate Amino Transferase 33 U/L (14-36); Bilirubin,Total 1.6 mg/dL (0.2-1.3); Blood Urea Nitrogen 10 mg/dL (7-17); Calcium 8.6 mg/dL (8.4-10.2); Carbon Dioxide 27 mmol/L (22-30); Chloride 99 mmol/L (98-107); Estimated CRCL calculation 46 ml/min; Estimated Glomerular Filt Rate > 60; Glucose 127 mg/dL (65-110); Potassium 3.6 mmol/L (3.4-5.0); Sodium 133 mmol/L (137-145)
--- NOTE | 2024-02-23 14:53 | P.PNIM_ITS ---
Progress Note: A&P Assessment and Plan (1) Transaminitis: Code(s): R74.01 - Elevation of levels of liver transaminase levels Status: Acute (2) Diarrhea: Qualifiers: Diarrhea type: unspecified type Qualified Code(s): R19.7 - Diarrhea, unspecified Code(s): R19.7 - Diarrhea, unspecified Status: Acute (3) Dementia: Code(s): F03.90 - Unspecified dementia, unspecified severity, without behavioral disturbance, psychotic disturbance, mood disturbance, and anxiety Status: Acute (4) Hypokalemia: Code(s): E87.6 - Hypokalemia Status: Acute (5) Hypertension: Qualifiers: Hypertension type: primary hypertension Qualified Code(s): I10 - Essential (primary) hypertension Code(s): I10 - Essential (primary) hypertension Status: Chronic (6) Hyperlipidemia: Qualifiers: Hyperlipidemia type: mixed hyperlipidemia Qualified Code(s): E78.2 - Mixed hyperlipidemia Code(s): E78.5 - Hyperlipidemia, unspecified Status: Chronic (7) Hypothyroidism: Qualifiers: Hypothyroidism type: acquired Qualified Code(s): E03.9 - Hypothyroidism, unspecified Code(s): E03.9 - Hypothyroidism, unspecified Status: Chronic (8) Dilation of common bile duct: Code(s): K83.8 - Other specified diseases of biliary tract Status: Acute (9) UTI (urinary tract infection): Qualifiers: Urinary tract infection type: acute cystitis Hematuria presence: without hematuria Qualified Code(s): N30.00 - Acute cystitis without hematuria Code(s): N39.0 - Urinary tract infection, site not specified Status: Acute Plan Transaminitis/dilation of common bile duct * AST 2078->554/ALT 1037->584/ALKPHO 270->224 * Currently down to AST/ALT 33/208, T bili 1.6 * GI consulted * CT ABD dilation of the bile duct * IV Fluids * Blood cultures NGTD * NPO * MRCP scheduled for 02/21/2024 * ERCP unsuccessful * PPI * ERCP unable to reach bile duct * Per GI start full liquid diet and monitor for downtrend of liver enzymes if they worsen she may need transferred for another attempt at ERCP * Enzymes continue a downtrend today Diarrhea * Reports chronic intermittent diarrhea * 3 episodes prior to arrival no further diarrhea noted * C diff sample order * Stool cultures ordered * IV fluids * Monitor electrolytes replenish as needed keep K+ >4.0 and mag >2.0 * 40 meq K and 2g mag given * Seems resolved UTI * Last UA with enterococcus * Foul smelling urine * Incontinent * Zosyn IV pending cultures to cover GI as well * This UTI appears to be enterococcus as well * Consider changing to ampicillin. Hypokalemia * 3.0 * 40 meq * f/u BMP 02/22/2024 * potassium 3.0 * Repeat 3.6 * 40 meq given HX HLD: resume statin HX HTN: Resumed amlodipine HX dementia: Resumed donepezil HX GERD: PPI HX hypothyroidism: Resumed levothyroxine Code status: Full code per patient DVT prophylaxis: SCD Stress ulcer prophylaxis: Protonix 40 daily PT/OT notes: PT/OT pending Disposition: Patient was admitted to the medical unit for further evaluation treatment of transaminitis with common bile duct dilation had ERCP 02/20, will need to monitor liver enzymes if no improvement will need transferred for another ERCP attempt, patient currently lives at [facility] with plan will likely be to discharge back to [facility].
--- NOTE | 2024-02-23 14:53 | PM.IMPN ---
Progress Note: A&P Assessment and Plan (1) Transaminitis: Code(s): R74.01 - Elevation of levels of liver transaminase levels Status: Acute (2) Diarrhea: Qualifiers: Diarrhea type: unspecified type Qualified Code(s): R19.7 - Diarrhea, unspecified Code(s): R19.7 - Diarrhea, unspecified Status: Acute (3) Dementia: Code(s): F03.90 - Unspecified dementia, unspecified severity, without behavioral disturbance, psychotic disturbance, mood disturbance, and anxiety Status: Acute (4) Hypokalemia: Code(s): E87.6 - Hypokalemia Status: Acute (5) Hypertension: Qualifiers: Hypertension type: primary hypertension Qualified Code(s): I10 - Essential (primary) hypertension Code(s): I10 - Essential (primary) hypertension Status: Chronic (6) Hyperlipidemia: Qualifiers: Hyperlipidemia type: mixed hyperlipidemia Qualified Code(s): E78.2 - Mixed hyperlipidemia Code(s): E78.5 - Hyperlipidemia, unspecified Status: Chronic (7) Hypothyroidism: Qualifiers: Hypothyroidism type: acquired Qualified Code(s): E03.9 - Hypothyroidism, unspecified Code(s): E03.9 - Hypothyroidism, unspecified Status: Chronic (8) Dilation of common bile duct: Code(s): K83.8 - Other specified diseases of biliary tract Status: Acute (9) UTI (urinary tract infection): Qualifiers: Urinary tract infection type: acute cystitis Hematuria presence: without hematuria Qualified Code(s): N30.00 - Acute cystitis without hematuria Code(s): N39.0 - Urinary tract infection, site not specified Status: Acute Plan Transaminitis/dilation of common bile duct AST 2078->554/ALT 1037->584/ALKPHO 270->224 Currently down to AST/ALT 33/208, T bili 1.[address] ABD dilation of the bile duct IV Fluids Blood cultures NGTD NPO MRCP scheduled for 02/21/2024 ERCP unsuccessful PPI ERCP unable to reach bile duct Per GI start full liquid diet and monitor for downtrend of liver enzymes if they worsen she may need transferred for another attempt at ERCP Enzymes continue a downtrend today Diarrhea Reports chronic intermittent diarrhea 3 episodes prior to arrival no further diarrhea noted C diff sample order Stool cultures ordered IV fluids Monitor electrolytes replenish as needed keep K+ >4.0 and mag >2.0 40 meq K and 2g mag given Seems resolved UTI Last UA with enterococcus Foul smelling urine Incontinent Zosyn IV pending cultures to cover GI as well This UTI appears to be enterococcus as well Consider changing to ampicillin. Hypokalemia 3.0 40 meq f/u BMP 02/22/2024 potassium 3.0 Repeat 3.6 40 meq given HX HLD: resume statin HX HTN: Resumed amlodipine HX dementia: Resumed donepezil HX GERD: PPI HX hypothyroidism: Resumed levothyroxine Code status: Full code per patient DVT prophylaxis: SCD Stress ulcer prophylaxis: Protonix 40 daily PT/OT notes: PT/OT pending Disposition: Patient was admitted to the medical unit for further evaluation treatment of transaminitis with common bile duct dilation had ERCP 02/20, will need to monitor liver enzymes if no improvement will need transferred for another ERCP attempt, patient currently lives at [facility] with plan will likely be to discharge back to [facility]. Time Spent With Patient Time: 52 minutes Time with patient: Greater than 35 minutes Subjective Date/time seen: 02/23/24 14:53 Interval history: Admission: 83 y/o F presents here with diarrhea with PMH of anemia, GERD, CKD, dementia, HLD, HTN, and hypothyroidism. The patient presents here via EMS from [facility] ([facility]) for further evaluation of diarrhea. Patient began experiencing large volume diarrhea last night around midnight. Per , she had 3 episodes of diarrhea. Patient was a
[2024-02-23] MEDS: DONEPEZIL HCL 5 MG TABLET 10 MG PO (20:40)
[2024-02-23] MEDS: LOSARTAN POTASSIUM 50 MG TABLET PO (20:40)
[2024-02-23] MEDS: FAMOTIDINE 20 MG TABLET PO (23:29)
[2024-02-24] VITALS (9 sets, daily range): BP systolic 102–153; BP diastolic 70–74; PULSE 71–120; RESP 13–16; TEMP 37.2; O2SAT 93–100
[2024-02-24] MEDS: LEVOTHYROXINE SODIUM 50 MCG TABLET PO (05:39)
[2024-02-24] MEDS: GABAPENTIN 300 MG CAPSULE 600 MG PO ×2 (05:39→13:07)
[2024-02-24] MEDS: PIPERACILLN/TAZ 3.375GM/NS50ML 3.375 GM/50 ML BAG IVPB (05:40)
[2024-02-24 05:51] LABS: Hematocrit 39.8 % (37.0-47.0); Hemoglobin 13.3 g/dL (12.0-15.0); Mean Corpuscular HGB Conc 33.4 g/dl (32-36); Mean Corpuscular Hemoglobin 31.2 pg (26-34); Mean Corpuscular Volume 93.4 fl (80-100); Mean Platelet Volume 10.1 fl (7.4-10.4); Platelet Count Result 245 k/mm3 (150-375); Red Blood Count 4.26 M/mm3 (4.2-5.4); Red Cell Distribution Width 13.5 % (11.5-14.5); White Blood Count 16.6 K/mm3 (4.5-10.0)
[2024-02-24 06:09] LABS: Alanine Aminotransferase 178 U/L (6-35); Albumin Level 3.5 g/dL (3.5-5.1); Alkaline Phosphatase 165 U/L (38-126); Anion Gap 9 mmol/L (4-12); Aspartate Amino Transferase 26 U/L (14-36); Bilirubin,Total 1.7 mg/dL (0.2-1.3); Blood Urea Nitrogen 11 mg/dL (7-17); Calcium 8.9 mg/dL (8.4-10.2); Carbon Dioxide 33 mmol/L (22-30); Chloride 92 mmol/L (98-107); Estimated CRCL calculation 41 ml/min; Estimated Glomerular Filt Rate > 60; Glucose 83 mg/dL (65-110); Potassium 2.9 mmol/L (3.4-5.0); Sodium 134 mmol/L (137-145)
[2024-02-24 06:38] LABS: Procalcitonin 0.3 ng/mL
--- NOTE | 2024-02-24 07:40 | P.DS_ITS ---
DS: Admitting Diagnosis Discharge Date 02/24/2024 0800 Admitting Diagnosis UTI, elevated liver enzymes DS: Discharge Diagnosis Discharge Diagnosis (1) Transaminitis: Code(s): R74.01 - Elevation of levels of liver transaminase levels Status: Acute (2) Diarrhea: Qualifiers: Diarrhea type: unspecified type Qualified Code(s): R19.7 - Diarrhea, unspecified Code(s): R19.7 - Diarrhea, unspecified Status: Acute (3) Dementia: Code(s): F03.90 - Unspecified dementia, unspecified severity, without behavioral disturbance, psychotic disturbance, mood disturbance, and anxiety Status: Acute (4) Hypokalemia: Code(s): E87.6 - Hypokalemia Status: Acute (5) Hypertension: Qualifiers: Hypertension type: primary hypertension Qualified Code(s): I10 - Essential (primary) hypertension Code(s): I10 - Essential (primary) hypertension Status: Chronic (6) Hyperlipidemia: Qualifiers: Hyperlipidemia type: mixed hyperlipidemia Qualified Code(s): E78.2 - Mixed hyperlipidemia Code(s): E78.5 - Hyperlipidemia, unspecified Status: Chronic (7) Hypothyroidism: Qualifiers: Hypothyroidism type: acquired Qualified Code(s): E03.9 - Hypothyroidism, unspecified Code(s): E03.9 - Hypothyroidism, unspecified Status: Chronic (8) Dilation of common bile duct: Code(s): K83.8 - Other specified diseases of biliary tract Status: Acute (9) UTI (urinary tract infection): Qualifiers: Hematuria presence: without hematuria Urinary tract infection type: acute cystitis Qualified Code(s): N30.00 - Acute cystitis without hematuria Code(s): N39.0 - Urinary tract infection, site not specified Status: Acute Plan Transaminitis/dilation of common bile duct * AST 2078->554/ALT 1037->584/ALKPHO 270->224 * Currently down to AST/ALT 33/208, T bili 1.6 * GI consulted * CT ABD dilation of the bile duct * IV Fluids * Blood cultures NGTD * NPO * MRCP scheduled for 02/21/2024 * ERCP unsuccessful * PPI * ERCP unable to reach bile duct * Per GI start full liquid diet and monitor for downtrend of liver enzymes if they worsen she may need transferred for another attempt at ERCP * Enzymes continue a downtrend today Diarrhea * Reports chronic intermittent diarrhea * 3 episodes prior to arrival no further diarrhea noted * C diff sample order * Stool cultures ordered * IV fluids * Monitor electrolytes replenish as needed keep K+ >4.0 and mag >2.0 * 40 meq K and 2g mag given * Seems resolved UTI * Last UA with enterococcus * Foul smelling urine * Incontinent * Zosyn IV pending cultures to cover GI as well * This UTI appears to be enterococcus as well * Consider changing to ampicillin. Hypokalemia * 3.0 * 40 meq * f/u BMP 02/22/2024 * potassium 3.0 * Repeat 3.6 * 40 meq given HX HLD: resume statin HX HTN: Resumed amlodipine HX dementia: Resumed donepezil HX GERD: PPI HX hypothyroidism: Resumed levothyroxine Code status: Full code per patient DVT prophylaxis: SCD Stress ulcer prophylaxis: Protonix 40 daily PT/OT notes: PT/OT pending Disposition: Patient was admitted to the medical unit for further evaluation treatment of transaminitis with common bile duct dilation had ERCP 02/20, will need to monitor liver enzymes if no improvement will need transferred for another ERCP attempt,
--- NOTE | 2024-02-24 07:40 | PM.DS ---
DS: Admitting Diagnosis Discharge Date 02/24/2024 0800 Admitting Diagnosis UTI, elevated liver enzymes DS: Discharge Diagnosis Discharge Diagnosis (1) Transaminitis: Code(s): R74.01 - Elevation of levels of liver transaminase levels Status: Acute (2) Diarrhea: Qualifiers: Diarrhea type: unspecified type Qualified Code(s): R19.7 - Diarrhea, unspecified Code(s): R19.7 - Diarrhea, unspecified Status: Acute (3) Dementia: Code(s): F03.90 - Unspecified dementia, unspecified severity, without behavioral disturbance, psychotic disturbance, mood disturbance, and anxiety Status: Acute (4) Hypokalemia: Code(s): E87.6 - Hypokalemia Status: Acute (5) Hypertension: Qualifiers: Hypertension type: primary hypertension Qualified Code(s): I10 - Essential (primary) hypertension Code(s): I10 - Essential (primary) hypertension Status: Chronic (6) Hyperlipidemia: Qualifiers: Hyperlipidemia type: mixed hyperlipidemia Qualified Code(s): E78.2 - Mixed hyperlipidemia Code(s): E78.5 - Hyperlipidemia, unspecified Status: Chronic (7) Hypothyroidism: Qualifiers: Hypothyroidism type: acquired Qualified Code(s): E03.9 - Hypothyroidism, unspecified Code(s): E03.9 - Hypothyroidism, unspecified Status: Chronic (8) Dilation of common bile duct: Code(s): K83.8 - Other specified diseases of biliary tract Status: Acute (9) UTI (urinary tract infection): Qualifiers: Hematuria presence: without hematuria Urinary tract infection type: acute cystitis Qualified Code(s): N30.00 - Acute cystitis without hematuria Code(s): N39.0 - Urinary tract infection, site not specified Status: Acute Plan Transaminitis/dilation of common bile duct AST 2078->554/ALT 1037->584/ALKPHO 270->224 Currently down to AST/ALT 33/208, T bili 1.[address] ABD dilation of the bile duct IV Fluids Blood cultures NGTD NPO MRCP scheduled for 02/21/2024 ERCP unsuccessful PPI ERCP unable to reach bile duct Per GI start full liquid diet and monitor for downtrend of liver enzymes if they worsen she may need transferred for another attempt at ERCP Enzymes continue a downtrend today Diarrhea Reports chronic intermittent diarrhea 3 episodes prior to arrival no further diarrhea noted C diff sample order Stool cultures ordered IV fluids Monitor electrolytes replenish as needed keep K+ >4.0 and mag >2.0 40 meq K and 2g mag given Seems resolved UTI Last UA with enterococcus Foul smelling urine Incontinent Zosyn IV pending cultures to cover GI as well This UTI appears to be enterococcus as well Consider changing to ampicillin. Hypokalemia 3.0 40 meq f/u BMP 02/22/2024 potassium 3.0 Repeat 3.6 40 meq given HX HLD: resume statin HX HTN: Resumed amlodipine HX dementia: Resumed donepezil HX GERD: PPI HX hypothyroidism: Resumed levothyroxine Code status: Full code per patient DVT prophylaxis: SCD Stress ulcer prophylaxis: Protonix 40 daily PT/OT notes: PT/OT pending Disposition: Patient was admitted to the medical unit for further evaluation treatment of transaminitis with common bile duct dilation had ERCP 02/20, will need to monitor liver enzymes if no improvement will need transferred for another ERCP attempt, patient currently lives at [facility] with plan will likely be to discharge back to [facility]. DS: Summary Hospital Course Hospital Course: Patient is an 81-year-old female with a past medical history of anemia, GERD, CKD, dementia, hyperlipidemia, hypertension, hypothyroidism who presented to the ED with complaints of diarrhea. Upon arrival it was noted that the patient's AST was 2 when he 78 ALT 10 and 37 lipase 65 UA did show infection. Patient underwent MRCP and ERCP however ERCP was not succ
[2024-02-24] MEDS: POTASSIUM CHLORIDE INJ 40 MEQ in SODIUM CHLORIDE 0.9% IV 500 ML 130 MEQ IVPB (09:06)
[2024-02-24] MEDS: RIVASTIGMINE TARTRATE 9.5 MG PATCH 1 PATCH TRANSDERM (09:07)
[2024-02-24] MEDS: FOLIC ACID 1 MG TABLET PO (09:08)
[2024-02-24] MEDS: amLODIPine BESYLATE 5 MG TABLET PO (09:08)
[2024-02-24] MEDS: PANTOPRAZOLE 40 MG TABLET PO (09:08)
[2024-02-24] MEDS: CYANOCOBALAMIN 1,000 MCG TABLET 1000 MCG PO (09:08)
[2024-02-24] MEDS: carvediloL 3.125 MG TABLET PO (09:09)
[2024-02-24] MEDS: POTASSIUM CHLORIDE 20 MEQ ER TABLET 40 MEQ PO (09:09)
[2024-02-24] MEDS: predniSONE 1 MG TABLET 4 MG PO (09:11)
[2024-02-24] MEDS: DULoxetine HCL 60 MG CAPSULE.DR PO (09:11)
[2024-02-24] MEDS: THERAPEUTIC MULTIVITAMINS/MINERALS TAB (*BKC) 1 TABLET PO (09:11)
[2024-02-24] MEDS: AMPICILLIN TRIHYDRATE 500 MG CAPSULE PO (13:07)
[2024-02-24 15:33] LABS: Potassium 4.9 mmol/L (3.4-5.0)
== END 2024-02-24 15:30 | disposition home health service (06) | DRG 445 ==
LOC: ANHED 15:25 → ANH2MED 16:24
PROVIDERS: Internal Medicine Gastroenterology; Nurse Practitioner Family; Student in an Organized Health Care Education/Training Program; Admitting Provider General Practice; Emergency Provider Emergency Medicine; Visit Provider Nurse Practitioner
PROC: 0F7D8DZ Dilation of Pancreatic Duct with Intraluminal Device, Via Natural or Artificial Opening Endoscopic (ICD-10-PCS; CPT 43260; principal; 2024-02-21 17:30)
DX: K83.1 Obstruction of bile duct (principal); N39.0 Urinary tract infection, site not specified; R17 Unspecified jaundice; K83.8 Other specified diseases of biliary tract; I12.9 Hypertensive chronic kidney disease with stage 1 through stage 4 chronic kidney disease, or unspecified chronic kidney disease; N18.9 Chronic kidney disease, unspecified; D64.9 Anemia, unspecified; E87.6 Hypokalemia; E03.9 Hypothyroidism, unspecified; E78.5 Hyperlipidemia, unspecified; K21.9 Gastro-esophageal reflux disease without esophagitis; B95.2 Enterococcus as the cause of diseases classified elsewhere; R19.7 Diarrhea, unspecified; R74.01 Elevation of levels of liver transaminase levels; M21.70 Unequal limb length (acquired), unspecified site; F03.90 Unspecified dementia, unspecified severity, without behavioral disturbance, psychotic disturbance, mood disturbance, and anxiety
CPT/HCPCS: 36415; 70450; 71045; 74177; 74183; 74329; 76376; 80053; 81001; 83605; 83690; 83735; 83880; 84132; 84145; 85025; 85027; 87040; 87077; 87086; 87088; 87181; 94002; 96361; 96375; 97110; 97116; 97161; 97165; 97530; 99285; A9270; A9577; C2625; G0378; J0290; J0330; J0360; J1885; J1940; J2405; J2543; J2704; J2765; J3030; J3475; J3480; J7030; J7040; J7120; Q9966; Q9967

== ENCOUNTER 2024-03-22 10:38 | Outpatient (CLI) | payer OTHER, SELFPAY ==
--- NOTE | ~2024-03-22 | XR_ITS ---
XR abdomen/kub 1V Ordering provider: Sergey Harden MD History: . Z96.89 - Presence of other specified functional implants . Comparison: None. FINDINGS: BOWEL: Nonobstructive bowel gas pattern. ORGANOMEGALY: None. SIGNIFICANT PATHOLOGIC CALCIFICATIONS: Possible bilateral renal calcifications. OTHER: Levoscoliosis with degenerative changes of the spine. No free air is seen under the diaphragm. Left hip postoperative changes. IMPRESSION: NO ACUTE ABDOMINAL FINDINGS. Bilateral renal calcification suggestive of stones. CT evaluation advised. Reviewed, dictated and finalized at location A.
[2024-03-22 11:14] LABS: Basophils Absolute Auto 0.1 K/mm3 (0.0-0.1); Basophils Percent Auto 0.8 % (0.2-1.2); Eosinophils Absolute Auto 0.4 K/mm3 (0-0.3); Eosinophils Percent Auto 3.5 % (0-4.4); Hematocrit 45.2 % (37.0-47.0); Hemoglobin 14.5 g/dL (12.0-15.0); Immature Granulocyte Absolute 0.07 K/mm3 (0.00-0.031); Immature Granulocyte Percent A 0.7 % (0-0.5); Lymphocytes Absolute Auto 1.35 K/mm3 (0.9-3.2); Lymphocytes Percent Auto 13.1 % (18.3-44.2); Mean Corpuscular HGB Conc 32.1 g/dl (32-36); Mean Corpuscular Hemoglobin 30.8 pg (26-34); Mean Platelet Volume 9.8 fl (7.4-10.4); Monocytes Absolute Auto 1.2 K/mm3 (0.1-0.6); Monocytes Percent Auto 11.7 % (2.6-8.5); Neutrophils Absolute Auto 7.3 K/mm3 (1.3-6.7); Neutrophils Percent Auto 70.2 % (45.5-73.1); Platelet Count Result 391 k/mm3 (150-375); Red Blood Count 4.71 M/mm3 (4.2-5.4); Red Cell Distribution Width 14.2 % (11.5-14.5); White Blood Count 10.3 K/mm3 (4.5-10.0)
[2024-03-22 11:24] LABS: Alanine Aminotransferase 61 U/L (6-35); Albumin Level 4.4 g/dL (3.5-5.1); Alkaline Phosphatase 223 U/L (38-126); Anion Gap 15 mmol/L (4-12); Aspartate Amino Transferase 32 U/L (14-36); Bilirubin,Total 1.5 mg/dL (0.2-1.3); Blood Urea Nitrogen 14 mg/dL (7-17); Calcium 9.7 mg/dL (8.4-10.2); Carbon Dioxide 28 mmol/L (22-30); Chloride 97 mmol/L (98-107); Estimated Glomerular Filt Rate 53; Glucose 98 mg/dL (65-110); Potassium 3.2 mmol/L (3.4-5.0); Sodium 140 mmol/L (137-145)
== END 2024-03-22 10:39 | disposition home or self-care (01) ==
LOC: ANHLAB 10:49
PROVIDERS: Visit Provider Nurse Practitioner
DX: R79.89 Other specified abnormal findings of blood chemistry (principal); D72.829 Elevated white blood cell count, unspecified; Z96.89 Presence of other specified functional implants
CPT/HCPCS: 36415; 74018; 80053; 85025

== ENCOUNTER 2024-09-16 13:10 | Emergency (ER) | payer OTHER, SELFPAY ==
[2024-09-16] VITALS (20 sets, daily range): BP systolic 132–155; BP diastolic 91–99; PULSE 76–114; RESP 14–22; TEMP 36.7; O2SAT 96–100
--- NOTE | ~2024-09-16 | XR_ITS ---
CHEST RADIOGRAPH CLINICAL HISTORY: cough, chills . COMPARISON: 02/22/2024 TECHNIQUE: Single portable view of the chest. FINDINGS The cardiomediastinal silhouette is unremarkable. Coarse interstitial lung markings, likely chronic. The remainder of the lungs are clear. IMPRESSION: Coarse interstitial lung markings, without focal infiltrate or effusion. Reviewed, dictated and finalized at location A. S BEVELER
--- NOTE | ~2024-09-16 | CT_ITS ---
History: Headache PROCEDURE: CT head without contrast. COMPARISON: 02/20/2024 TECHNIQUE: Axial imaging of the head performed from the skull base to the vertex without IV contrast. Sagittal a nd coronal reformations obtained. DLP: 1286 mGy-cm FINDINGS: The ventricles are enlarged. The dilatation of the ventricles is proportional to the degree of sulcal prominence, not uncommon in the senescent brain. Decreased attenuation is identified within the periventricular white matter, likely secondary to micr ovascular ischemic disease, in a patient of this age. There is no mass, mass effect or midline shift. There is no abnormal extra-axial fluid collection or intracranial hemorrhage. Visualized paranasal sinuses are clear. The mastoid air cells are well aerated. No acute displaced fractures within the overlying cranium. Impression: No acute intracranial hemorrhage or suspicious mass effect. Reviewed, dictated and finalized at location A. R MACHINE HELPER Impression: No acute intracranial hemorrhage or suspicious mass effect.
--- OUTSIDE RECORDS SUMMARY | 2024-09-16 13:13 | XMS_ITS | Referral Summary ---
Author Organization [facility] Address [address] [place] [address] Care Team Providers Care Head Of Integrated Media Name Role Phone Jennifer Holliday MD Primary Care Provid er Jennifer Holliday MD Unavailable [phone] Jeramy Lester MD Unavailable [phone] Karen Melendez MD Unavailable Alysia Ty MD Unavailable [phone] Reymundo Johnston MD Unavailable Soledad eWst MD Unavailable [phone] ADELAIDE Luciano IV, C Joseph Unavailable [phone] Vasile Mcmanus MD Unavailable Kurtis Ochoa MD Unavailable [phone] Hermes Hernandez MD Unavailable Juan C Montelongo MD Unavailable Sergey Spence MD Unavailable + Juhi Connolly NP Unavailable [phone] Jailyn Downey RN Unavailable Encounters Date Type Department Care Team Description 09/14/2024 AMBROSIO IP Outreach [facility] Accountable Care Organization [address] [place] [id number] Jenise Holloway LPN 09/03/2024 Orders Only [facility] Medical [facility] Respiratory Care at [address] [address] Benita Giraldo NP 08/31/2024 11:10 AM [employer] Lab [address] [address] Iron deficiency anemia, unspecified iron deficiency anemia type; Vitamin D deficiency; Encounter for Medicare annual wellness exam; Mixed hyperlipidemia; Primary hypertension 08/31/2024 9:30 AM [employer] Office Visit [facility] Respiratory Care at [address] [address] Benita Giraldo NP Encounter for Medicare annual wellness exam (Primary Dx); Alzheimer's disease, unspecified (HCC); Mixed hyperlipidemia; Primary hypertension; Gastroesophageal reflux disease without esophagitis; Iron deficiency anemia, unspecified iron deficiency anemia type; CAREN on CPAP; Vitamin D deficiency; Encounter for osteoporosis screening in asymptomatic postmenopausal patient; Low back pain with bilateral sciatica, unspecified back pain laterality, unspecified chronicity; Rhonchi at left lung base; Age-related osteoporosis without current pathological fracture 08/16/2024 Telephone [facility] [id number] [place] [address] [address], [place] [address] Franc Duarte II, MD 08/09/2024 Telephone [facility] Medical Group at [place] [address], [place] [address] Jennifer Holliday MD Referral Request 06/22/2024 3:45 PM [employer]ITCH [employer] Office Visit [facility] Care at [address] [address] Emiliano Trinidad NP Bilateral acute serous otitis media, recurrence not specified (Primary Dx) from Last 3 Months Allergies Active Allergy Reactions Criticality Noted Date Comments Diphenhydramine Mental status changes Low [address] (PROTONIX) 40 mg EC tablet Take 1 tablet (40 mg total) by mouth 2 (two) times a day Active multivitamin capsule Take 1 capsule by mouth every morning Active cyanocobalamin (Vitamin B-12) 1,000 mcg tabletIndicati ons:Prevention of Vitamin B12 Deficiency Take 0.5 tablets (500 mcg total) by mouth every morning Active gabapentin (NEURONTIN) 600 mg tablet Take 1 tablet (600 mg total) by mouth 3 (three) times a day Active DULoxetine DR (CYMBALTA) 60 mg capsule Take 1 capsule (60 mg total) by mouth daily with breakfast Active predniSONE (DELTASONE) 1 mg tabletIndicati ons:Anti-infla mmatory Take 3 tablets (3 mg) by mouth daily Active dicyclomine (BENTYL) 10 mg capsule TAKE 1 CAPSULE BY MOUTH 1 - 2 TIMES EVERY DAY NEEDED 03/03/20 22 Active famotidine (PEPCID) 20 mg tablet Take 1 tablet (20 mg total) by mouth 2 (two) times a day as needed for heartburn 11/06/19 23 Active eszopiclone (LUNESTA) 3 mg tabletIndicati ons:Insomnia Take 1 tablet (3 mg total) by mouth nightly Take immediately before bedtime Active atorvastatin (LIPITOR) 10 mg tablet Take 1 tablet (10 mg total) by mouth daily 90 tablet 2 03/21/20 24 Active folic acid (FOLVITE) 1 mg tablet TAKE 1 TABLET BY MOUTH EVERY DAY 100 tablet 1 03/28/20 24 Active carvediloL (COREG) 3.125 mg tablet Take 1 tablet (3.125 mg total) by mouth 2 (two) times a day with meals 180 tablet 1 03/31/20 24 Active rivastigmine (EXELON) 9.5 mg/24 hourIndication s:Mild to Moderate Alzheimer's Type Dementia Place 9.5 mg on the skin daily 90 patch 1 04/12/20 24 025 Active brexpiprazole (Rexulti) 0.5 mg tablet 1 tablet (0.5 mg total) Active ezetimibe (ZETIA) 10 mg tablet TAKE 1 TABLET BY MOUTH EVERY DAY 100 tablet 07/15/20 24 Active levothyroxine (SYNTHROID) 50 mcg tablet TAKE 1 TABLET BY MOUTH EVERY DAY 100 tablet 07/15/20 24 Active losartan (COZAAR) 50 mg tablet TAKE 1 TABLET BY MOUTH EVERY DAY AT NIGHT 100 tablet 08/14/19 25 Active memantine (NAMENDA) 5 mg tabletIndicati ons:Moderate to Severe Alzheimer's Type Dementia Take 1 tablet (5 mg total) by mouth 2 (two) times a day 60 tablet 3 08/18/19 25 026 Active methocarbamoL (ROBAXIN) 500 mg tabletIndicati ons:Low back pain with bilateral sciatica, unspecified back pain laterality, unspecified chronicity Take 1 tablet (500 mg total) by mouth 2 (two) times a day as needed for muscle spasms 60 tablet 1 08/31/19 25 Active amLODIPine (NORVASC) 5 mg tablet TAKE 1 TABLET (5 MG TOTAL) BY MOUTH DAILY. 90 tablet 1 09/05/19 25 025 Active cyclobenzaprin e (FLEXERIL) 10 mg tablet Take 1 tablet (10 mg total) by mouth 2 (two) times a day 10/29/19 23 025 Discontinued(T herapy completed) ampicillin (PRINCIPEN) 500 mg capsule Take 1 capsule (500 mg total) by mouth every 6 (six) hours 025 Discontinued(T herapy completed) amLODIPine (NORVASC) 5 mg tablet TAKE 1 TABLET (5 MG TOTAL) BY MOUTH DAILY. 90 tablet 1 03/09/20 24 025 Discontinued cephalexin (KEFLEX) 500 mg capsule Take 1 capsule (500 mg total) by mouth 2 (two) times a day for 7 days 14 capsule 09/03/19 25 025 Active Problems Problem Noted Date Diagnosed Date CAREN on CPAP 02/16/2023 Pneumonia due to infectious organism 12/18/2022 Assessment & Plan (12/18/2022 12:06 PM CDT): Acute, Improving -Continue Bactrim until completion Cognitive communication deficit 06/15/2022 01/13/2023 Alzheimer's disease, unspecified 03/18/2022 Assessment & Plan (09/06/2024 1:21 PM L[employer]ITCH [employer]): Follow up with Edy Arthritis of right knee 02/05/2022 Assessment & Plan (03/24/2022 11:39 AM CDT): Patient appears to have a small effusion the knee and some reactive synovitis. Scheduled to see a tank pumper in early April and who would be advisable to keep that appointment. It may be helpful to contact the tank pumper let them know she is having acute flare up. Will check a white cell count uric acid level rheumatoid factor and CASSANDRA in the meantime. Patient has had migratory arthralgias in the past. There is no clinical evidence to support sepsis Assessment & Plan (03/09/2022 4:01 PM CDT): Patient is known to have moderate degenerative changes of the knee and has reactive synovitis of the knee clinically currently. After reviewing the treatment options she elected undergo a cortisone injection today and she tolerated the procedure well. Long-term weight loss would likely be helpful. In the future she may be facing knee replacement surgery depending on her physical conditioning Assessment & Plan (02/05/2022 9:11 AM CDT): Radiographically the patient has moderate degenerative arthritis of the knee. She has gotten debilitated and may find therapy beneficial. Six visits for home therapy were recommended and home exercise sheets were also provided. This might improve her gait mechanics incompetence in the leg. Left renal mass 02/26/2021 Fall 12/02/2020 Assessment & Plan (12/02/2020 11:08 PM CDT): Patient was dizzy at the time. Fall precautions. Patient is hypoxic on arrival which could have contributed. Patient also had low blood pressures. Continue with IV fluids. Continue supplemental oxygen. Multifocal pneumonia 12/02/2020 Lesion of left [place] kidney 12/02/2020 Assessment & Plan (12/02/2020 11:11 PM CDT): Noted on CT scan. 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 Will consult Urology. 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 Mcmanus at [facility] on December 10. Patient has ecchymosis of the anterior neck from prior hematoma. Will hold anticoagulation for risk of bleeding. Acute respiratory failure with hypoxia (CMS/HCC) 12/02/2020 Assessment & Plan (12/02/2020 11:09 PM CDT): Likely secondary to pneumonia. Continue supplemental oxygen and wean as tolerated. Patient is really adamant about going home tomorrow to her and her new puppy. Will attempt to wean oxygen in the a.m.. Vitamin D deficiency 02/19/2020 Assessment & Plan (08/31/2024 9:46 AM LOCKSTITCH [employer]): Labs ordered Assessment & Plan (02/11/2021 12:53 PM CDT): Recheck like based on that further plans Leukocytosis 03/29/2019 CRI (chronic renal insufficiency), stage 3 (mode rate) 02/15/2019 Nontoxic multinodular goiter 01/08/2019 Assessment & Plan (02/19/2020 9:42 AM CDT): dominant 1.7 cm left thyroid nodule status post FNA biopsy with benign cytology No compressive symptoms Recheck thyroid function tests Performed a follow-up thyroid ultrasound in office today noted stable left thyroid nodule. Repeat thyroid ultrasound in 1 year. 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 Duarte Assessment & Plan (02/11/2021 12:48 PM CDT): dominant 1.7 cm left thyroid nodule status post FNA biopsy with benign cytology No compressive symptoms Recheck thyroid function tests Performed a follow-up thyroid ultrasound in office today noted stable left thyroid nodule. Repeat thyroid ultrasound in 1 year. Assessment & Plan (05/11/2018 4:31 PM CDT): Performed FNA biopsy of 1.7 cm left thyroid nodule today in office Further plans based on cytology results Check TSH and TPO ab Assessment & Plan (04/11/2018 10:13 PM CDT): Reviewed recent Thyroid u/s report and images Multiple bilateral thyroid nodules, with dominant 1.7 cm left thyroid nodule - that meets criteria for FNA biopsy based on the nodule size - pt and family had multiple relevant questions In regards to thyroid nodules that were answered to the best of my knowledge - advised to follow up in 2 weeks for FNA thyroid nodule biopsy in office 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 04/05/2018 Back pain 03/29/2018 Assessment & Plan (09/06/2024 1:22 PM LOCK[employer]ITCH [employer]): Follow up with colletteaxin Sciatic pain 03/29/2018 Pleural mass 03/16/2018 Rib pain on right side 03/16/2018 Age-related osteoporosis wit hout current pathological fracture 06/23/2017 Assessment & Plan (09/06/2024 1:21 PM LOCKSTITCH FRONT MAKER): Follow up with Dr Day Assessment & Plan (09/09/2023 8:21 AM LOCK[employer]ITCH [employer]ER): Osteoporosis with high-risk status post left hip fracture Rediscuss the treatment options with patient to consider osteoporotic medication family and patient at this time deferred to start any treatment at this time and they will let me know if they are willing to consider to start on osteoporotic medication Assessment & Plan (02/11/2021 12:48 PM CDT): Reviewed recent bone density scan Worsening osteopenia left hip FRAX score high 10 year risk for a major osteoporotic fracture is 46% and the 10 year risk for a hip fracture is 34%. - continue current calcium and vitamin-D supplementation - check labs today - discussed about starting osteoporotic medication - patient is worsening severe GERD, oral bisphosphonates not a good choice - will start patient on IV bisphosphonate therapy - Reclast 5 mg IV ( discussed benefits, side effects ) - advised to obtain dental clearance before - fall precautions - follow up in one year Assessment & Plan (02/19/2020 9:41 AM CDT): - advise to take at least 3-4 servings of calcium in diet - advise to take atleast Vitamin D 3 1000 units oral daily - advise to work on physical therapy to strengthen muscle and improve gait and balance - blood work up today - recheck DEXA scan - fall ,,,, fall ,, fall precautions Assessment & Plan (09/28/2017 9:37 PM L[employer]ITCH [employer]): recent DEXA scan results And recent labs Showed ( normal serum calcium levels, normal Vitamin D 25 (OH) levels , CKD stage 2-3 FINDINGS: LUMBAR SPINE: Mean bone mineral content is 1.030 g/cm2. The T-score is -0.2. LEFT HIP: Mean bone mineral content is 0.771 g/cm2. The neck T-score is -1.6. The total T-score is -1.4. FRAX score 10 year fracture risk for a Major Osteoporotic fracture is 32 % and for hip fracture is 19 % - had a long discussion with pt. And her family, explained in detail her DEXA scan results , and FRAX score - pt. Has increased risk for having a fracture in next 10 years, - discussed treatment options - calcium, vitamin D and anti resorptive medications ( explained all options and discussed in details each of its mechanism of action , benefits, risk and side effects - given her CKD stage 2-3 , I would prefer RANK ligand inhibitors ( eg: Prolia - denosumab ) - pt. Decided to obtain second opinion on dental clearance - advised fall precautions - advised to work on physical and occupation therapy to strengthen her core muscle strength - recommend atleast 1000 mg of oral calcium intake and vitamin D - follow up in 3 months Assessment & Plan (06/23/2017 9:27 AM LOCKSTITCH FR[employer]KER): Reviewed pt. Recent DEXA scan results And recent labs ( normal serum calcium levels, normal Vitamin D 25 (OH) levels , CKD stage 2-3 FINDINGS: LUMBAR SPINE: Mean bone mineral content is 1.030 g/cm2. The T-score is -0.2. LEFT HIP: Mean bone mineral content is 0.771 g/cm2. The neck T-score is -1.6. The total T-score is -1.4. FRAX score 10 year fracture risk for a Major Osteoporotic fracture is 32 % and for hip fracture is 19 % - had a long discussion with pt. And her family, explained in detail her DEXA scan results , and FRAX score - pt. Has increased risk for having a fracture in next 10 years, - discussed treatment options - calcium, vitamin D and anti resorptive medications ( explained all options and discussed in details each of its mechanism of action , benefits, risk and side effects - plan: r/o secondary causes of Osteoporosis - check a 24 hour urine calcium levels and PTH, intact levels - if pt. 24 hours urine calcium levels are low, will considering increasing oral calcium supplementations, before consider starting anti restorative therapy - given her CKD stage 2-3 , I would prefer RANK ligand inhibitors ( eg: Prolia - denosumab ) - obtain dental clearance - advised fall precautions - advised to work on physical and occupation therapy to strengthen her core muscle strength - obtain X ray lumbar and thoracic spine X rays to r/o any compression fractures - recommend atleast 1000 mg of oral calcium intake and vitamin D - follow up in 3 months Annual physical exam 05/19/2017 Overview (05/19/2017): Discussed all issues; labs P Iron deficiency anemia 03/17/2017 Assessment & Plan (08/31/2024 9:46 AM L[employer]ITCH [employer]): Labs ordered Assessment & Plan (03/17/2017 11:16 AM CDT): Check cbc Gastroesophageal reflux disease 08/24/2016 Overview (11/05/2016): ESOPHAGEAL REFLUX Assessment & Plan (09/02/2024 11:01 PM L[employer]ITCH [employer]): Continue pantoprazole Assessment & Plan (12/02/2020 11:06 PM CDT): Continue home medications Insomnia 08/24/2016 Overview (11/05/2016): Insomnia Assessment & Plan (12/02/2020 11:07 PM CDT): Patient takes Lunesta at home. Unfortunately it is non formulary. Pure hypercholesterolemia 07/07/2016 Overview (11/06/2016): PURE HYPERCHOLESTEROLEM Assessment & Plan (12/02/2020 11:07 PM CDT): Continues Zetia Abnormal weight loss 12/24/2015 Overview (11/05/2016): Abnormal weight loss Depression 10/07/2015 Overview (11/06/2016): DEPRESSIVE DISORDER NEC Assessment & Plan (03/17/2017 11:05 AM CDT): Psychological condition is improving with treatment. Continue current treatment regimen. Regular aerobic exercise. Psychological condition will be reassessed at the next regular appointment. Polymyalgia rheumatica ([facility]) 09/26/2014 Overview (11/05/2016): PMR - Polymyalgia rheumatica Assessment & Plan (12/02/2020 11:07 PM CDT): Continue prednisone every other day Disorder of joint 01/17/2014 Overview (11/05/2016): ARTHROPATHY NOS-UNSPEC Malaise and fatigue 12/16/2013 Overview (11/05/2016): MALAISE AND FATIGUE NEC Arthralgia of multiple joints 12/16/2013 Overview (11/05/2016): JOINT PAIN-MULT JTS Myopathy 12/16/2013 Overview (11/06/2016): MYALGIA AND MYOSITIS NOS Chronic pain syndrome 08/15/2012 Overview (11/06/2016): Chronic pain syndrome Hyperlipidemia 07/11/2012 Overview (11/05/2016): Hyperlipidemia Assessment & Plan (08/31/2024 9:47 AM LOCK[employer]ITCH [employer]): Labs ordered Continue zetia and atorvastatin Assessment & Plan (03/17/2017 11:05 AM CDT): Lipid abnormalities are improving with treatment. Nutritional counseling was provided. Lipids will be reassessed 4mos. Hypertension 07/11/2012 Overview (11/05/2016): Hypertension Assessment & Plan (08/31/2024 9:47 AM LOCKSTITCH FRONT [employer]KER): Stable continue Assessment & Plan (12/02/2020 11:06 PM CDT): Patient is on nifedipine and losartan. Will hold losartan this evening and continue nifedipine with hold parameters. Patient did have an episode of low blood pressures. Currently normotensive. Continue to monitor. Assessment & Plan (03/17/2017 11:04 AM CDT): Hypertension is improving with treatment. Continue current treatment regimen. Dietary sodium restriction. Weight loss. Regular aerobic exercise. Blood pressure will be reassessed 4mos. Muscle pain 07/11/2012 Overview (11/06/2016): Muscle pain Adiposity 12/07/2011 Overview (11/06/2016): OBESITY NOS Resolved Problems Problem Noted Date Diagnosed Date Resolved Date Osteoporosis screening 05/19/201706/15 Overview (05/19/2017): Mammogram P Osteoporosis 05/16/2014 06/15/2018 Overview (11/05/2016): OSTEOPOROSIS NOS Immunizations Name Administration Dates Next Due Influenza, Quadrivalent, Hig h Dose, Preservative Free, Intrr 07/01/2021,05/29/2020 Influenza, Split 07/21/2013,06/09/2011, 0 Influenza, Trivalent, High D ose, Split, Preservative Free, Intramuscular 2019,04/20/2018,04/19/2018(Defer red: Other - Medication to be reordered for 04/20/2018),04/18/2018(),05/19/2017,,06/14/2015,05/16/2014, 014 Influenza, Trivalent, IM (MDV) 3,07/02/2012,05/20/2011,05/21 Influenza, Unspecified 03/09/2024(Deferr ed: Patient Refused),04/02/2023 Pfizer SARS-CoV-2 Monovalent Vaccination (12+ Yrs) PURPLE 06/02/2023,07/10/2021,10/28/2020,10/07 Pneumococcal Conjugate PCV 13 01/30/2015 Pneumococcal Polysaccharide PPV23 06/15/2018 Tdap 02/15/2019 Social History Tobacco Use Types Packs/Day Years Used Date Smoking Tobacco: Former Cigarettes 1 26.3 0 [birth year]11/1956 - 08/02/1982 Smokeless Tobacco: Never Tobacco Cessation:Counseling Given: Not Answered Alcohol Use Standard Drinks/Week Comments Yes 0 (1 standard drink = 0.6 oz pur e alcohol) occasionally [facility] Utilities Answer Date Recorded In the past 12 months has [employer], gas, oil, or water [employer] threatened to shut off services in your home? No 02/25/2024 Social Connection and Isolat ion Panel [NHANES] Answer Date Recorded In a typical week, how many times do you talk on the phone with family, friends, or neighbors? More than three times a week 02/25/2024 How often do you get togethe r with friends or relatives? More than three times a week 02/25/2024 How often do you attend chur ch or sikhism services? More than 4 times per year 02/25/2024 Do you belong to any clubs o r organizations such as lutheran groups, unions, fraternal or athletic groups, or school groups? No 02/25/2024 How often do you attend meet ings of the clubs or organizations you belong to? Never 02/25/2024 Are you , , di vorced, , never , or living with a partner? 02/25/2024 AUDIT-C Answer Date Recorded Q1: How often do you have a drink containing alcohol? Never 02/06/2022 Q2: How many drinks containi ng alcohol do you have on a typical day when you are drinking? Patient does not drink Q3: How often do you have si x or more drinks on one occasion? Never 02/06/2022 Overall Financial Resource Strain (CARDIA) Answe r Date Recorded How hard is it for you to pa y for the very basics like food, housing, medical care, and heating? Not very hard 02/25/2024 PHQ-2 Answer Date Recorded PHQ-2 Total Score (If total score is 3 or more points, staff should administer the PHQ-9) 2 08/31/2024 Hunger Vital Sign Answer Date Recorded Within the past 12 months, y ou worried that your food would run out before you got the money to buy more. Never true 02/25/20 24 Within the past 12 months, t he food you bought just didn't last and you didn't have money to get more. Never true 02/25/2024 PRAPARE - Transportation Answer Date Re corded In the past 12 months, has l ack of transportation kept you from medical appointments or from getting medications? No 01/31 In the past 12 months, has l ack of transportation kept you from meetings, work, or from getting things needed for daily living? No 02/25/2024 Housing Stability Vital Sign Answer Angel e Recorded In the last 12 months, was t here a time when you were not able to pay the mortgage or rent on time? No 12/10/2022 In the last 12 months, how many places have you lived? 1 12/10/2022 In the last 12 months, was t here a time when you did not have a steady place to sleep or slept in a prison (including now)? No 12/10/2022 Housing Stability Vital Sign Answer Angel e Recorded In the last 12 months, was t here a time when you were not able to pay the mortgage or rent on time? No 02/25/2024 In the past 12 months, how m any times have you moved where you were living? 0 02/25/2024 At any time in the past 12 m [facility], were you homeless or living in a prison (including now)? No 02/25/2024 Comments No Sex and Gender Information Value Date Recorded Sex Assigned at Not on file Legal Sex Female 11:24 PM LOCKSTITCH [employer] Gender Identity Female 02/03/2023 6:56 PM CDT Sexual Orientation Not on file Last Filed Vital Signs Vital Sign Reading Time Taken Comments Blood Pressure 128/82 08/31/2024 9:50 AM L[employer]ITCH [employer] Pulse 82 08/31/2024 9:50 AM L[employer]ITCH [employer] Temperature 36.2 C (97.2 F) 08/31/2024 9:50 AM LOCKSTITCH FRONT [employer]ER Respiratory Rate 16 08/31/2024 9:50 AM LOCKSTITCH FRONT [employer] Oxygen Saturation 93% 08/31/2024 9:50 AM LOCKSTITCH FR[employer]ER Inhaled Oxygen Concentration - - Weight 67.1 kg (148 lb) 08/31/2024 9:50 AM L[employer]ITCH FR[employer] Height 152.4 cm (5') 08/31/2024 9:50 AM L[employer]STITCH [employer] Body Mass Index 28.9 08/31/2024 9:50 AM LOCKSTITCH [employer] Plan of Treatment Not on file Goals Goal Patient Goal Type Associated Problems Recent Progress Patient-Stated? Author AMBROSIO General Goal - Patient schedules and keeps appointments with all recommended providers [facility] Care Management On track(2024 4:08 PM LOCKSTITCH FRONT MAKER) No Jono Boothe, RN Note: Problem: Potential for medical complications and readmission if follow-up appointments are not scheduled Interventions: - Ensure all follow-up appointments are scheduled, all prescribed medications have been received. - Address any barriers for keeping scheduled appointment. - Coordinate with patient/caregiver(s) to ensure patient is able to keep scheduled appointment. - Emphasize importance of keeping scheduled appointments. - Identify and discuss questions for next provider visit. - Follow up with patient after scheduled appointment(s) to review any new orders or changes made to medication regimen. AMBROSIO General Goal - Patient/caregiver will verbalize understanding of fall prevention techniques and will sustain no additional falls during Care Management program ACO Care Management On track(2024 4:08 PM LOCKSTITCH FRONT MAKER) Jailyn Fischer RN Note: Problem: At Risk for Falls related to history of falls Interventions: - Review fall prevention/home safety guidelines with patient. Send educational materials if needed. - Assess patient's current tools and equipment used currently. Evaluate if additional tools or DME are needed to improve safety and decrease fall risk. - Assess appropriateness for Home Health. Start referral process if skilled need is present. - Evaluate need for Lifeline or other medical alert device. - Discuss importance of notifying primary provider when a fall occurs with details about the circumstances of the fall. - Refer to SW if appropriate and patient is agreeable. Procedures Procedure Name Priority Date/Time Associated Diagnosis Comments URINALYSIS, MICROSCOPIC ONLY Routine 08/31/2024 12:18 PM LOCKSTITCH [employer]ONT [employer]ER Encounter for Medicare annual wellness exam ALBUMIN CREATININE RATIO, URINE Routine 08/31/2024 12:18 PM LOCKSTITCH [employer]ONT [employer]ER Primary hypertension URINALYSIS AND REFLEX TO MICROSCOPIC AND CULTURE Routine 08/31/2024 12:18 PM L[employer]STITCH [employer]ER Encounter for Medicare annual wellness exam URINE CULTURE Routine 08/31/2024 12:18 PM LOCKSTITCH FRONT MAKER EGFR Routine 08/31/2024 11:21 AM LOCKSTITCH FRONT MAKER Encounter for Medicare annual wellness exam DIFFERENTIAL AUTO Routine 08/31/2024 11:21 AM LOCKSTITCH [employer]ONT [employer]KER Encounter for Medicare annual wellness exam CBC WITH AUTO DIFFERENTIAL Routine 08/31/2024 11:21 AM LOCKSTITCH [employer]ONT [employer]KER Encounter for Medicare annual wellness exam COMPREHENSIVE METABOLIC PANEL Routine 08/31/2024 11:21 AM LOCKSTITCH FRONT [employer]ER Encounter for Medicare annual wellness exam LIPID PANEL Routine 08/31/2024 11:21 AM LOCKSTITCH FRONT [employer]KER Mixed hyperlipidemia HEMOGLOBIN A1C Routine 08/31/2024 11:21 AM LOCKSTITCH FRONT MAKER Encounter for Medicare annual wellness exam VITAMIN D 25 HYDROXY Routine 08/31/2024 11:21 AM LOCKSTITCH FRONT [employer]KER Vitamin D deficiency IRON PROFILE W/ IBC Routine 08/31/2024 11:21 AM LOCKSTITCH FRONT [employer]KER Iron deficiency anemia, unspecified iron deficiency anemia type POCT RAPID STREP Routine 06/22/2024 3:38 PM LOCKSTITCH FRONT MAKER Bilateral acute serous otitis media, recurrence not specified DEXA AXIAL SKELETON BONE DENSITY 1 OR MORE SITES Schedule Routine, Read Routine (OP Routine) 01/08/2021 11:43 AM CDT Osteopenia of left hip from Last 3 Months or Most Recently Relevant to Health Maintenance Results * (ABNORMAL) Urinalysis reflex to microscopic and culture Urine, clean voided (08/31/2024 12:18 PM LOCKSTITCH FRONT MAKER) Color, ur Yellow Yellow Comment:[facility] [place] [address] Clarity, ur Turbid(A) Clear [facility] Comment:[facility] [address], [place] [address] Specific gravity, ur 1.018 1.003 - 1.030 [facility] Comment:[facility] [address], [place] [address] pH, urine 6.0 [facility] Comment: Interpretive Data U rine pH is affected by diet, medications, systemic acid-base disturbances, and renal tubular function. pH may affect urinary stone formation. For example, urine pH below 6.0 may help reduce the tendency for calcium phosphate stones and pH greater than 6.0 may reduce the tendency for uric acid stone formation. Source: [facility] Current Interpretive Data was last revised on 2017 Testing performed by: [facility], [address], [place] [address] Protein, ur ql Trace Negative CERNER CH Comment:Testing performed by : [facility], [facility] [place] [address] Glucose, ur ql Negative Negative CERNER CH Comment:Testing performed by : [facility], [address] [address] Ketones, ur Negative Negative CERNER CH Comment:Testing performed by : [facility], [facility] [place] [address] Bilirubin, ur Negative Negative CERNER CH Comment:Testing performed by : [facility], [address] [place] [address] Blood, ur Negative Negative CERNER CH Comment:Testing performed by : [facility], [facility] [place] [address] Urobilinogen, ur <2.0 <2.0 mg/dL CERNER CH Comment:Testing performed by : [facility], [facility] [place] [address] Nitrite, ur Negative Negative CERNER CH Comment:Testing performed by : [facility], [facility] [place] [address] Leukocyte esterase, ur 2+(A) Negative CERNER CH Comment:Testing performed by : [facility], [facility] [place] [address] UA reflex comment Reflex to microscopic UA will be performed. DEONDRENER Comment:Testing performed by : [facility] [place] [address] Urine, clean voided 08/31/2024 12:18 PM [employer]STITCH [employer]ONT [employer]ER 08/31/2024 12:18 PM [employer]STITCH [employer]ER Benita Giraldo NP LAB MICROBIOLOGY - GENERA L ORDERABLES Final Result STACEY ZAMBRANO [address] Department [place] [address] * (ABNORMAL) Albumin Creatinine Ratio, Urine (08/31/2024 12:18 PM LOCKSTITCH FRONT [employer]KER) Albumin Ur 39.2 mg/L Comment: Interpretive Data No reference range established. Current interpretive data was last revised 2018. Creatinine Ur 99.0 mg/dL STACEY Comment: Interpretive Data No reference range established. Current interpretive data was last revised 2018. Albumin Creatinine Ratio, Ur 40(H) 1 - 29 mg/g [facility] Urine 08/31/2024 12:1 8 PM [employer]STITCH [employer]ONT [employer]KER 08/31/2024 7:43 PM [employer]STITCH [employer]ER Benita Giraldo THEATRICAL TROUPER LAB URINE ORDERABLES Shasta l Result Performing Organization Address [facility] Co de Phone Number STACEY [address] [facility] [place], [place] [id number] * (ABNORMAL) Urinalysis, microscopic only (08/31/2024 12:18 PM LOCKSTITCH FRONT [employer]KER) WBC, ur 11-20(A) 0 - 5 /HPF Comment:Testing performed by : [facility], [place] [address] RBC, ur 0-2 0 - 2 /HPF [facility] Comment:Testing performed by : [facility], [place] [address] Epithelial cells, squamous, ur 1-5 0 - 5 /HPF [facility] Comment:Testing performed by : [facility], [place] [address] Bacteria, ur Trace(A) [facility] Comment:Testing performed by : [facility], [place] [address] Mucous, ur Present(A) [facility] Comment:Testing performed by : [facility], [place] [address] Hyaline casts, ur 6-10 0 - 10 /LPF [facility] Comment:[facility] [address], [place] [address] Culture Reflex Comment Reflex to urine culture will be performed. [facility] Comment:Testing performed by : [facility], [place] [address] Urine, clean voided 08/31/2024 12:18 PM LOCKSTITCH FRONT [employer]KER 08/31/2024 2:19 PM [employer]ITCH [employer]ER Benita Giraldo THEATRICAL TROUPER LAB URINE ORDERABLES Shasta l Result Performing Organization Address [facility]/ZIP Co de Phone Number STACEY [address] [facility] [place] [address] * (ABNORMAL) Urine culture Urine, clean voided (08/31/2024 12:18 PM LOCKSTITCH FRONT [employer]KER) Report Final Report: Greater than or equal to 100,000 colonies/mL of Klebsiella pneumoniae Plus growth of clinically insignificant bacterial alena. (.) Comment:Testing performed by : [facility], [address] [place]., [address] Organism KLEBSIELLA PNEUMONIAE STACEY Organism PLUS GROWTH OF CLINICALLY INSIGNIFICANT ALENA. STACEY Urine, clean voided 08/31/2024 12:18 PM LOCKSTITCH FRONT [employer]ER 08/31/2024 5:55 PM [employer]ITCH [employer]ER Narrative STACEY - 09/04/2024 6:10 AM LOCKSTITCH FRONT MAKER Urine culture reflexed based upon urinalysis results. Testing performed by [facility] Laboratory ([phone]) Organism Antibiotic Method Susceptibility Klebsiella pneumoniae Ampicillin INTERPRETATION Resistant Klebsiella pneumoniae Cefazolin INTERPRETATION Susceptible Klebsiella pneumoniae Nitrofurantoin INTERPRETATION Intermediate Klebsiella pneumoniae Gentamicin INTERPRETATION Susceptible Klebsiella pneumoniae Trimethoprim with Sulfamethoxazole INTERPRETATION Susceptible Klebsiella pneumoniae Meropenem INTERPRETATION Susceptible Klebsiella pneumoniae Cefepime INTERPRETATION Susceptible Klebsiella pneumoniae Ciprofloxacin INTERPRETATION Susceptible Klebsiella pneumoniae Ceftazidime INTERPRETATION Susceptible Klebsiella pneumoniae Ceftriaxone INTERPRETATION Susceptible Klebsiella pneumoniae Piperacillin/Tazobactam INTERPRE TATION Susceptible Klebsiella pneumoniae Cephalexin INTERPRETATION Susceptible Klebsiella pneumoniae Cefuroxime-axetil INTERPRETATION Susceptible Klebsiella pneumoniae Cefdinir INTERPRETATION Susceptible Benita Giraldo THEATRICAL TROUPER LAB MICROBIOLOGY - GENERA L ORDERABLES Final Result STACEY ZAMBRANO [id number] [place] [address] * eGFR (08/31/2024 11:21 AM LOCKSTITCH FRONT MAKER) eGFR 74 >=60 mL/min/1. 73 m2 Comment: Interpretive Data Reference Interval Normal >/= 90 mL/min/1.73m2 Mildly decreased* 60 - 89 mL/min/1.73m2 Mildly to moderately decreased 45 - 59 mL/min/1.73m2 Moderately to severely decreased 30 - 44 mL/min/1.73m2 Severely decreased 15 - 29 mL/min/1.73m2 Kidney Failure < 15 mL/min/1.73m2 *Relative to young adult level Estimated glomerular filtration rate is determined by the 2020 CKD-EPI equation recommended by the National Kidney Foundation (A Unifying Approach to GFR Estimation: Recommendations of the NKF-ASK Task Force on Reassessing the Inclusion of Race in Diagnosing Kidney Disease, JASN 2020). The CKD-EPI equation should not be used for patients with unstable renal function and has not been validated in children and those over 70. Current interpretive data was last reviewed 2021. Testing performed by: [facility] [address], [place] [address] Blood 08/31/2024 11:2 1 AM LOCKSTITCH FRONT MAKER 08/31/2024 11:38 AM LOCKSTITCH FRONT MAKER us Benita Giraldo NP LAB BLOOD ORDERABLES Shasta murray Result [facility] [id number] [place] [address] * (ABNORMAL) Differential, auto (08/31/2024 11:21 AM LOCKSTITCH FRONT [employer]KER) Neutrophil abs 6.3 1.5 - 6.5 K/cumm Comment:Testing [facility] : [facility] [address], [place] [address] Imm gran abs 0.0 0.0 - 0.1 K/cumm [facility] Comment:Testing performed by : [facility] [address], [place] [address] Lymphocyte abs 1.1 0.8 - 3.3 K/cumm [facility] Comment:Testing performed by : [facility] [address], [place] [address] Monocyte abs 0.9(H) 0.2 - 0.8 K/cumm [facility] Comment:Testing performed by : [facility] [address], [place] [address] Eosinophil abs 0.3 0.0 - 0.5 K/cumm [facility] Comment:Testing performed by : [facility] [address], [place] [address] Basophil abs 0.1 0.0 - 0.1 K/cumm [facility] Comment:Testing performed by : [facility], [address] [place] [address] Neutrophil pct 72.5 % CERNER CH Comment: Interpretive Data Percent cell count reference ranges are not reported, since discordance with absolute values may lead to misinterpretation of CBC data. Current Interpretive Data was last revised on 2017. Testing performed by: [facility], [place] [address] Imm gran pct 0.3 % CERNER CH Comment: Interpretive Data Percent cell count reference ranges are not reported, since discordance with absolute values may lead to misinterpretation of CBC data. Current Interpretive Data was last revised on 2017. Testing performed by: [facility], [place] [address] Lymphocyte pct 12.8 % CERNER CH Comment: Interpretive Data Percent cell count reference ranges are not reported, since discordance with absolute values may lead to misinterpretation of CBC data. Current Interpretive Data was last revised on 2017. Testing performed by: [facility] [address], [place] [address] Monocyte pct 10.8 % CERNER CH Comment: Interpretive Data Percent cell count reference ranges are not reported, since discordance with absolute values may lead to misinterpretation of CBC data. Current Interpretive Data was last revised on 2017. Testing performed by: [facility], [place] [address] Eosinophil pct 2.9 % CERNER CH Comment: Interpretive Data Percent cell count reference ranges are not reported, since discordance with absolute values may lead to misinterpretation of CBC data. Current Interpretive Data was last revised on 2017. Testing performed by: [facility] [address], [place] [address] Basophil pct 0.7 % CERNER CH Comment: Interpretive Data Percent cell count reference ranges are not reported, since discordance with absolute values may lead to misinterpretation of CBC data. Current Interpretive Data was last revised on 2017. Testing performed by: [facility] [address], [place] [address] Blood 08/31/2024 11:2 1 AM LOCKSTITCH FRONT [employer]KER 08/31/2024 11:21 AM L[employer]STITCH FRONT [employer]ER Benita Giraldo THEATRICAL TROUPER LAB BLOOD ORDERABLES Shasta l Result Performing Organization Address City/[facility]/ZIP Co de Phone Number STACEY [address] [address] [facility] [place] [address] * Iron profile w/ IBC (08/31/2024 11:21 AM LOCKSTITCH FRONT MAKER) Pathologist [facility] Iron 65 35 - 145 mcg/dl TIBC 285 250 - 400 mcg/dL [facility] Transferrin saturation 23 20 - 50 % CERNER Blood 08/31/2024 11:2 1 AM LOCKSTITCH FRONT MAKER 08/31/2024 9:12 PM [employer]ITCH [employer]ONT [employer]KER Benita Giraldo THEATRICAL TROUPER LAB BLOOD ORDERABLES Shasta l Result Performing Organization Address [facility] Co de Phone Number [facility] [phone] [place] [address] * (ABNORMAL) CBC with auto differential (08/31/2024 11:21 AM LOCKSTITCH FRONT MAKER) [facility] WBC 8.7 3.8 - 9.9 K/cumm Comment:Testing performed by : [facility] [place] [address] Hgb 13.1 11.9 - 15.5 g/dL CERNER CH Comment:Testing performed by : [facility] [place] [address] Hct 39.8 35.6 - 45.5 % CERNER CH Comment:Testing performed by : [facility] [place] [address] Plt 300 150 - 400 K/cumm CERNER CH Comment:Testing performed by : [facility] [place] [address] MPV 10.6 9.1 - 12.3 fL CERNER CH Comment:Testing performed by : [facility] [address], [place] [address] RBC 4.16 3.90 - 5.20 M/cumm CERNER CH Comment:Testing performed by : [facility] [address], [place] [address] MCV 95.7 81.3 - 96.4 fL CERNER CH Comment:Testing performed by : [facility] [place] [address] MCH 31.5 27.1 - 33.3 pg STACEY Comment:Testing performed by : [facility], [place] [address] MCHC 32.9 32.3 - 35.7 g/dL STACEY Comment:Testing performed by : [facility], [facility] [place] [address] RDW CV 14.4 11.1 - 14.9 % STACEY Comment:Testing performed by : [facility], [place] [address] RDW SD 51.0(H) 35.7 - 48.1 fL STACEY Comment:Testing performed by : [facility], [facility] [place] [address] NRBC abs 0.00 0.00 - 0.01 K/cumm STACEY Comment:Testing performed by : [facility], [facility] [place] [address] Blood 08/31/2024 11:2 1 AM LOCKSTITCH FRONT MAKER 08/31/2024 11:21 AM L[employer]STITCH FRONT [employer]KER Benita Giraldo THEATRICAL TROUPER LAB BLOOD ORDERABLES Shasta l Result Performing Organization Address [facility] Co de Phone Number STACEY [address] [address] [facility] [place] [address] * Vitamin D 25 hydroxy (08/31/2024 11:21 AM LOCKSTITCH FRONT MAKER) Pathologist [facility] Vitamin D 25-OH 58 30 - 80 ng/mL Blood 08/31/2024 11:2 1 AM L[employer]STITCH FRONT MAKER 08/31/2024 9:03 PM L[employer]STITCH FRONT MAKER Benita Giraldo THEATRICAL TROUPER LAB BLOOD ORDERABLES Shasta l Result Performing Organization Address City/[facility] Co de Phone Number STACEY [address] [address] [facility] [place] [address] * (ABNORMAL) Hemoglobin A1c (08/31/2024 11:21 AM LOCKSTITCH FRONT MAKER) Pathologist [facility] Hgb A1C 5.8(H) 4.0 - 5.6 % Estimated Average Glucose 120 mg/dL STACEY ZAMBRANO Comment: The ADA recommends reporting an estimated Average Glucose (eAG) with all Hemoglobin A1c results using the equation derived from a study of 507 normal and diabetic adults. Minority populations were underrepresented and children were not included. (Diabetes Care 31:8974-0451, 2008). The eAG is not equivalent to a fasting glucose. Blood 08/31/2024 11:2 1 AM LOCKSTITCH FRONT MAKER 08/31/2024 9:16 PM LOCKSTITCH FRONT MAKER us Benita Giraldo NP LAB BLOOD ORDERABLES Shasta l Result STACEY ZAMBRANO [address] [facility] [place], [place] [id number] * Lipid panel (08/31/2024 11:21 AM LOCKSTITCH FRONT MAKER) Cholesterol 139 30 - 199 mg/dL Comment: Interpretive Data Ages < or = 19 years Acceptable: <170 mg/dL Borderline high: 170-199 mg/dL High: >or= 200 mg/dL Ages > or = 20 years Desirable: <200 mg/dL Borderline high: 200-239 mg/dL High: >or= 240 mg/dL Literature References: 1. Expert Panel on Integrated Guidelines for Cardiovascular Health and Risk Reduction in Children and Adolescents. Pediatrics 2011;128:S213 2. NCEP Expert Panel. Circulation 2004;110:227 Current Interpretive Data was last revised on 2018. Testing performed by: [facility], [facility] [address], [place] [address] Triglycerides 85 <=149 mg/dL STACEY ZAMBRANO Comment: Interpretive Data Ages < or = 9 years Acceptable: <75 mg/dL Borderline high: 75-99 mg/dL High: >or= 100 mg/dL Ages 10 to 20 years Acceptable: <90 mg/dL Borderline high: 90-129 mg/dL High: >or= 130 mg/dL Ages > or = 20 years Desirable: <150 mg/dL Borderline high: 150-199 mg/dL High: 200-499 mg/dL Very high: >or= 499 mg/dL Literature References: 1. Expert Panel on Integrated Guidelines for Cardiovascular Health and Risk Reduction in Children and Adolescents. Pediatrics 2011;128:S213 2. NCEP Expert Panel. Circulation 2004;110:227 Current Interpretive Data was last revised on 2018. Testing performed by: [facility], [place] [address] HDL 65 >=40 mg/dL STACEY Comment: Interpretive Data Ages < or = 19 years Acceptable: >45 mg/dL Borderline low: 40-45 mg/dL Low: <40 mg/dL Ages > or = 20 years Desirable: >or= 60 mg/dL Low: <40 mg/dL Literature References: 1. Expert Panel on Integrated Guidelines for Cardiovascular Health and Risk Reduction in Children and Adolescents. Pediatrics 2011;128:S213 2. NCEP Expert Panel. Circulation 2004;110:227 Current Interpretive Data was last revised on 2018. Testing performed by: [facility], [place] [address] LDL, calculated 58 <=129 mg/dL STACEY Comment: Interpretive Data Ages < or = 19 years Acceptable: <110 mg/dL Borderline high: 110-129 mg/dL High: >or= 130 mg/dL Ages > or = 20 years Optimal: <100 mg/dL Near optimal: 100-129 mg/dL Borderline high: 130-159 mg/dL High: >160 mg/dL Calculated using the Jaden LDL-C estimating equation. This equation was implemented on 2024. Prior to this date LDL-C was estimated using the Friedewald equation. Literature References: 1. Expert Panel on Integrated Guidelines for Cardiovascular Health and Risk Reduction in Children and Adolescents. Pediatrics 2011;128:S213 2. NCEP Expert Panel. Circulation 2004;110:227 3. Jaden Varela et al. PORTIA Cardiol. 2020 November 30;5(5):540-548. doi: 10.1001/jamacardio.2020.0013 Current Interpretive Data was last revised on 2024. Testing performed by: [facility], [place] [address] Non-HDL Cholesterol 74 mg/dL STACEY Comment: Interpretive Data Ages < or = 19 years Acceptable: <120 mg/dL Borderline high: 120-144 mg/dL High: >145 mg/dL Ages > or = 20 years When triglycerides are >200 mg/dL, Non-HDL cholesterol is a secondary target of therapy with treatment goals that are 30 mg/dL greater than the LDL cholesterol target. Literature References: 1. Expert Panel on Integrated Guidelines for Cardiovascular Health and Risk Reduction in Children and Adolescents. Pediatrics 2011;128:S213 2. NCEP Expert Panel. Circulation 2004;110:227 Current Interpretive Data was last revised on 2018. Testing [facility]: [facility], [place] [address] Chol/HDL ratio 2 CERNER CH Comment:Testing performed by : [facility] [address], [place] [address] Blood 08/31/2024 11:2 1 AM LOCKSTITCH FRONT MAKER 08/31/2024 11:21 AM LOCKSTITCH FRONT MAKER us Benita Giraldo NP LAB BLOOD ORDERABLES Shasta murray Result [facility] [address] Department of Laboratories [place], [place] [id number] * Comprehensive metabolic panel (08/31/2024 11:21 AM LOCKSTITCH FRONT MAKER) Sodium 143 135 - 145 mmol/L Comment:[facility] by [facility], [place] [address] Potassium, pl 4.2 3.3 - 4.9 mmol/L CERNER CH Comment:Testing performed by : [facility], [place] [address] Chloride 107 97 - 110 mmol/L CERNER CH Comment:Testing performed by : [facility], [place] [address] CO2 27 22 - 32 mmol/L CERNER CH Comment:Testing performed by : [facility], [place] [address] Anion gap 9 2 - 15 mmol/L CERNER CH Comment:Testing performed by : [facility], [place] [address] BUN 18 6 - 25 mg/dL CERNER CH Comment:Testing performed by : [facility], [place] [address] Creatinine 0.79 0.60 - 1.10 mg/dL CERNER CH Comment:Testing performed by : [facility] [address], [place] [address] Glucose 117 70 - 199 mg/dL CERNER CH Comment: Interpretive Data Fasting glucose >/= 126 mg/dl is diagnostic for diabetes. Fasting is defined as no caloric intake for at least 8 hours. Fasting glucose between 100 mg/dl to 125 mg/dl is diagnostic of prediabetes. In a patient with classic symptoms of hyperglycemia or hyperglycemic crisis, a random glucose >/= 200 mg/dl is diagnostic for diabetes. In the absence of unequivocal hyperglycemia, results should be confirmed by repeat testing. The classification and Diagnosis of Diabetes Diabetes Care 2021; 46: S19-S40. Current interpretive data was last revised 2022. Testing performed by: [facility] [place] [address] [address] Calcium 9.9 8.5 - 10.3 mg/dL CERNER Comment:Testing [facility] by : [facility] [address], [place] [id number] Bilirubin, total 0.6 0.1 - 1.2 mg/dL CERNER Comment:[facility] [place] [address] Protein, pl 7.2 6.5 - 8.5 g/dL CERNER Comment:[facility] performed by : [facility], [place] [address] Albumin 3.8 3.5 - 5.0 g/dL CERNER Comment:Testing performed by : [facility] [address], [place] [address] Alk phos 106 40 - 130 Units/L CERNER Comment:Testing performed by : [facility] [address], [place] [address] ALT 25 7 - 45 Units/L CERNER Comment:Testing performed by : [facility], [place] [address] AST 26 10 - 45 Units/L CERNER Comment:Testing performed by : [facility] [place] [address] Blood 08/31/2024 11:2 1 AM LOCKSTITCH FRONT MAKER 08/31/2024 11:21 AM LOCKSTITCH FRONT MAKER Benita Giraldo NP LAB BLOOD ORDERABLES Shasta l [facility] [address] [place] [address] * POCT rapid strep A (06/22/2024 3:38 PM LOCKSTITCH FRONT MAKER) [facility] Rapid Strep A, POC Negative Negative Swab 06/22/2024 3:38 PM LOCKSTITCH FRONT MAKER Emiliano Trinidad NP POINT OF CARE TEST ORDERABLES F inal Result * Dexa Axial Skeleton Bone Density 1 or 2 Site (01/08/2021 11:43 AM CDT) Anatomical Region Laterality Modality Body N/A Other 01/08/2021 8:03 PM CDT Narrative 01/08/2021 8:04 PM CDT EXAM DESCRIPTION: DEXA AXIAL SKELETON BONE DENSITY 1 OR MORE SITES REASON FOR STUDY: Post-menopausal female, screening for osteoporosis. Special Duty Nurse/Model: Foradian SL (S/N [id number]) CLINICAL INFORMATION: Current height: 63.5 inches Maximum height: 66.5 inches Weight: 144 pounds Risk factors: Parental history of a hip fracture, glucocorticoid use COMPARISON: 05/28/2017 FINDINGS: AP LUMBAR SPINE L1-L4: Total BMD is 0.980 g/cm2 T-score is -0.6 Most recent prior BMD was 1.030 g/cm2 There has been a 4.9% decrease in BMD which is statistically significant. LEFT HIP: Current Total BMD is 0.706 g/cm2 T-score is -1.9 Most recent prior Total BMD was 0.771 g/cm2 There has been a 8.5% decrease in BMD which is statistically significant. Current femoral neck BMD is 0.596 g/cm2 T-score is -2.3 IMPRESSION: 1. Low bone mass by WHO criteria. 2. The WHO fracture risk assessment tool (FRAX) indicates that the 10 year risk for a major osteoporotic fracture is 46% and the 10 year risk for a hip fracture is 34%. The FRAX tool has not been validated in patients currently or previously treated with pharmacotherapy for osteoporosis. In such patients, clinical judgement must be exercised in interpreting FRAX scores as the fracture risk may be overestimated. REFERENCE: Bone mineral density: Normal (T-score above or = -1.0) Low bone mass (T-score between -1.0 and -2.5) replaces the previously used term osteopenia Osteoporosis (T-score = or below -2.5) Medical evaluation for secondary causes of low bone mineral density may be appropriate. FRAX is a World Health Organization validated fracture risk assessment tool that calculates a person's 10 year probability of a major osteoporosis related fracture and hip fracture. According to the National Osteoporosis Foundation guidelines, postmenopausal women and men age 50 or older with low bone mass and a 10 year probability of a major osteoporosis related fracture = or greater than 20% or a 10 year probability of a hip fracture = or greater than 3% should be considered for treatment. For further information, including treatment recommendations, please refer to the 2013 ISCD Official Positions (http://www.iscd.org) and the NOF's Clinician's Guide to Prevention and Treatment of Osteoporosis (http://www.nof.org/professionals/clinical-guidelines) THIS IS AN ELECTRONICALLY VERIFIED FINAL REPORT 01/08/2021 8:04 PM - Electronically signed by Reymundo Moss M.D. AB: Report ID: [id number] Reading Location: [id number] Procedure Note Reymundo Moss MD - 01/08/2021 EXAM DESCRIPTION: DEXA AXIAL SKELETON BONE DENSITY 1 OR MORE SITES REASON FOR STUDY: Post-menopausal female, screening for osteoporosis. Special Duty Nurse/Model: Giphy Discovery SL (S/N [id number]) CLINICAL INFORMATION: Current height: 63.5 inches Maximum height: 66.5 inches Weight: 144 pounds Risk factors: Parental history of a hip fracture, glucocorticoid use COMPARISON: 05/28/2017 FINDINGS: AP LUMBAR SPINE L1-L4: Total BMD is 0.980 g/cm2 T-score is -0.6 Most recent prior BMD was 1.030 g/cm2 There has been a 4.9% decrease in BMD which is statisticallysignificant. LEFT HIP: Current Total BMD is 0.706 g/cm2 T-score is -1.9 Most recent prior Total BMD was 0.771 g/cm2 There has been a 8.5% decrease in BMD which is statisticallysignificant. Current femoral neck BMD is 0.596 g/cm2 T-score is -2.3 IMPRESSION: 1. Low bone mass by WHO criteria. 2. The WHO fracture risk assessment tool (FRAX) indicates that the 10 year risk for a major osteoporotic fracture is 46% and the 10 year risk for ahip fracture is 34%. The FRAX tool has not been validated in patients currently or previously treated with pharmacotherapy for osteoporosis. In such patients, clinical judgement must be exercised in interpreting FRAX scores as the fracturerisk may be overestimated. REFERENCE: Bone mineral density: Normal (T-score above or = -1.0) Low bone mass (T-score between -1.0 and -2.5) replaces thepreviously used term osteopenia Osteoporosis (T-score = or below -2.5) Medical evaluation for secondary causes of low bone mineral density may be appropriate. FRAX is a World Health Organization validated fracture risk assessmenttool that calculates a person's 10 year probability of a major osteoporosisrelated fracture and hip fracture. According to the National OsteoporosisFoundation guidelines, postmenopausal women and men age 50 or older with low bonemass and a 10 year probability of a major osteoporosis related fracture = or greater than 20% or a 10 year probability of a hip fracture = or greaterthan 3% should be considered for treatment. For further information, including treatment recommendations, please referto the 2013 ISCD Official Positions (http://www.iscd.org) and the NOF's Clinician's Guide to Prevention and Treatment of Osteoporosis (http://www.nof.org/professionals/clinical-guidelines) THIS IS AN ELECTRONICALLY VERIFIED FINAL REPORT 01/08/2021 8:04 PM - Electronically signed by Reymundo Moss M.D. AB: Report ID: [id number] Reading Location: [id number] Malini Day MD IMG DXA PROCEDURES Final Result from Last 3 Months or Most Recently Relevant to Health Maintenance Insurance [facility] HEALTH[facility]ARE [facility]ALTH[facility]ARE [facility] Advance Directives For more information, please contact: [phone] * Full Code (Latest Code Status on File) Date Activated Date Inactivated Comments 02/06/2022 9:58 PM 02/09/2022 4:26 PM * LIMITED - No CPR Date Activated Date Inactivated Comments 12/02/2020 11:04 PM 12/03/2020 6:13 PM Question Answer Comments Provide aggressive medical m anagement before a full cardiopulmonary arrest occurs. Use antibiotics, IV Fluids, and medical treatment unless specifically selected below: No intubation * Full Code Date Activated Date Inactivated Comments 04/15/2018 6:34 PM 04/20/2018 4:06 PM * Full Code Date Activated Date Inactivated Comments 03/07/2018 10:13 AM 03/08/2018 2:58 AM Care Teams Head Of Integrated Media Relationship Specialty Start Date End Date Jennifre Holliday MD [address] [facility] [address] [place], [place] [id number] PCP - General 10/30/16 Jennifer Holliday MD [address] [facility] [address] [place] [address] PCP - Essence Attributed PCP 08/02/13 Jeramy Lester MD [address] [facility] [address] [place] [address] Surgeon Cardiothoracic Surgery 03/16/19 Karen Melendez MD [address] [place] [address] Consulting Physician Rheumatology 05/22/19 Alysia Ty MD [address] [facility] [address] [place], [place] [id number] Consulting Physician Gastroenterology 05/22/19 Reymundo Johnston MD [address] [place] [address] Referring Physician Gynecology 12/03/20 Soledad West MD [address] [place] [address] Consulting Physician Dermatology 10/29/21 Dusty Luciano IV, AUD [address] [facility] [place] [address] Online Producer 10/29/21 Vasile Mcmanus MD [address] [facility] [place] [address] Surgeon Vascular Surgery 10/29/21 Kurtis Ochoa MD [address] [facility] [address] [place] [address] Referring Physician Orthopedic Surgery 07/06/22 Hermes Hernandez MD [address] [facility] [address] [facility] [address] [place] [address] Consulting Physician Neurology 08/06/22 Juan C Montelongo MD [address] [place] [address] Referring Physician Otolaryngology 10/26/23 Sergey Spence MD [address] [facility] [address] [place] [address] Referring Physician Gastroenterology 03/09/24 Juhi Connolly NP [address] [place] [address] [address] [place] [address] Neurology 04/10/24 Jailyn Downey RN [address] [place] [address] [address] [place] [address] Hand Almond Blancher 06/16/24
--- OUTSIDE RECORDS SUMMARY | 2024-09-16 13:13 | XMS_ITS ---
Author Organization [facility] francis Address [address] [place] [address] Care Team Providers Care Punchboard Inserter Name Role Phone Miya ORTIZ, Jennifer Primary Care Provider Karen Baker [phone] REASON FOR VISIT 3 month follow up/flc Encounters Encounter Location Date Provider Diagnosis [facility] [address] [place] [address] 08/03/2024 Karen Mancilla Plan Of Treatment Next Appt Details Provider Name:Karen Mancilla, 09/22 03:15:00 PM, [address], [address], [place], [address], Progress Notes * Malini JOE ADOB: (84 yo F)Acc No.[id number]:08/03/2024 Progress Notes Patient: Malini MAY Provider: Mignon MANCILLA MD :1940 A ge:84 Y S ex:Female Date:08/03/2024 [facility] Pcp:Jennifer Holliday MD Subjective: * Chief Complaints: * 1 . 3 month follow up/flc. * Medical History: Objective: * Vitals: Assessment: Plan: * Treatment: * Billing Information: * Visit Code: * Procedure Codes: * Electronic signature of Karen Mancilla MD on 09/16/2024 at 01:13 PM CHARHOUSE WORKER Sign off status: Pending * Provider: Mignon MANCILLA MD Date: 0 08/03/2024 Generated for Nate madrid/Rodolfo/Teeitting on: 0 09/16/2024 01:13 PM CHARHOUSE WORKER
--- OUTSIDE RECORDS SUMMARY | 2024-09-16 13:13 | XMS_ITS | Encounter Summary ---
Author Organization [facility] Healthcare Address [address] [place] [address] Care Team Providers Care Telephone Clerk Telegraph Office Name Role Phone Jennifer Holliday MD Primary Care Provid er Jennifer Holliday MD Unavailable [phone] Gentry Zamora MD Unavailable Brien Sue MD Unavailable Zakiya Shaikh MD PhD Unavailable [phone] Jeramy Lester MD Unavailable Karen Melendez MD Unavailable Alysia Ty MD Unavailable Reymundo Johnston MD Unavailable [phone] Natasha Holloway MA Unavailable [phone] Romie Mccord DO Unavailable [phone] Soledad West MD Unavailable Ankita REYNOLDS, Dusty BRYSON Unavailable Vasile Mcmanus MD Unavailable Lucy Reyes RN Unavailable [phone] Jerry Mahan MD Unavailable [phone] Lynn Edwards RN Unavailable [phone] Kurtis Ochoa MD Unavailable [phone] Eddie Munroe MD Unavailable [phone] Hermes Hernandez MD Unavailable Jessy Mckinney RN Unavailable [phone] Juan C Montelongo MD Unavailable Jono Boothe RN Unavailable [phone] Sergey Spence MD Unavailable + Juhi Connolly NP Unavailable [phone] Jailyn Downey RN Unavailable [phone] Reason for Visit * Reason Onset Date Comments Scheduling Appointments 01/07/2021 REMINDER CALL FOR DEXA; NO ANSWER. Encounter Details Date Type Department Care Team (Late st Contact Info) Description 01/07/2021 Telephone [facility] [address] [place] [address] Matilde Crocker RT Scheduling Appointments (REMINDER CALL FOR DEXA; NO ANSWER. ) Social History Tobacco Use Types Packs/Day Years Used Date Smoking Tobacco: Former Cigarettes 1 25 0 08/02/1957 - 08/02/1982 Smokeless Tobacco: Never Alcohol Use Standard Drinks/Week Comments Yes 0 (1 standard drink = 0.6 oz pur e alcohol) occasionally Social Connection and Isolat ion Panel [NHANES] Answer Date Recorded In a typical week, how many times do you talk on the phone with family, friends, or neighbors? More than three times a week 11/27/2020 How often do you get togethe r with friends or relatives? More than three times a week 11/27/2020 Attends Synagogue Services Not on file 11/27 Active Member of Clubs or Organizations Not on f ile 11/27/2020 Attends Club or Organization Meetings Not on sera e 11/27/2020 Are you , , di vorced, , never , or living with a partner? 11/27/2020 Overall Financial Resource Strain (CARDIA) Answe r Date Recorded How hard is it for you to pa y for the very basics like food, housing, medical care, and heating? Not hard at all 11/27/2020 PHQ-2 Answer Date Recorded PHQ-2 Total Score (If total score is 3 or more points, staff should administer the PHQ-9) 0 10/02/2020 PRAPARE - Transportation Answer Date Re corded In the past 12 months, has l ack of transportation kept you from medical appointments or from getting medications? No 11/01 In the past 12 months, has l ack of transportation kept you from meetings, work, or from getting things needed for daily living? No 11/27/2020 Comments No Sex and Gender Information Value Date Recorded Sex Assigned at Not on file Legal Sex Female 11:24 PM BUNGHOLE BORER Gender Identity Female 02/03/2023 6:56 PM CDT Sexual Orientation Not on file documented as of this encounter Plan of Treatment Not on file documented as of this encounter Visit Diagnoses Not on filedocumented in this encounter Additional Health Concerns Infection Onset Date Last Indicated Resolved Time COVID: Suspected 02/06/2022 02/06/2022 02/06/2022 4:09 PM CDT Exposure, COVID-19 Comment:Added automatically based on COVID19 lab answers indicating exposure risk 07/02/2022 07/02/2022 07/12/2022 3:[address] COVID: Suspected 07/02/2022 07/02/2022 07/02/2022 12:42 PM BUNGHOLE BORER documented as of this encounter Care Teams Telephone Clerk Telegraph Office Relationship Specialty Start Date End Date Jennifer Holliday MD [address] [place] [address] PCP - General 10/30/16 Jennifer Holliday MD [address] [place] [id number] PCP - Essence Attributed PCP 08/02/13 [place] [address] [address] [facility] [address] [place] [address] Collateral Specialist Pulmonary Disease 03/25/18 02/03/23 Brien Sue MD [address] [place] [address] Medical Oncologist/Hematologi [facility] Oncology 03/25/18 07/05/22 Zakiya Shaikh MD PhD [address] [place] [address] Medical Oncologist/Hematologi [facility] Oncology 02/22/19 02/03/23 Jeramy Lester MD [address] [place], [place] [address] Surgeon Cardiothoracic Surgery 03/16/19 Karen Melendez MD [address] [place] [address] Consulting Physician Rheumatology 05/22/19 Alysia Ty MD [address] [place], [place] [address] Consulting Physician Gastroenterology 05/22/19 Reymundo Johnston MD [address] [place] [address] Referring Physician Gynecology 12/03/20 Natasha Holloway MA [address] [facility] [address] [place] [address] ACO Care Labor Relations Specialist 10/06/21 10/14/21 Romie Mccord DO [address] [place] [address] [address] [place] [address] Consulting Physician Urology 10/29/21 02/03/23 Soledad West MD [address] [facility] [address] [place] [address] Consulting Physician Dermatology 10/29/21 Dusty Luciano IV, AUD [address] [facility] [place] [address] Coagulating Bath Mixer 10/29/21 Vasile Mcmanus MD [address] [place] [address] Surgeon Vascular Surgery 10/29/21 Lucy Reyes RN [address] [place] [address] [address] [place] [address] Robotics Technologist 02/10/22 03/10/22 [place] [address] [address] [facility] [address] [place] [address] Surgeon Orthopedic Surgery 02/25/22 07/05/22 Lynn Edwadrs RN [address] [place] [address] [address] [place] [address] Robotics Technologist 06/18/22 07/15/22 Kurtis Ochoa MD [address] [facility] [address] [place] [address] Referring Physician Orthopedic Surgery 07/06/22 Eddie Munroe MD [address] [facility] [address] [place] [address] Consulting Physician Neurosurgery 07/06/22 02/03/23 Hermes Hernandez MD [address] [facility] [address] [place] [address] Consulting Physician Neurology 08/06/22 Jessy Mckinney, RN [address] [place] [address] [address] [place] [address] Robotics Technologist 12/10/22 01/06/23 Juan C Montelongo MD [address] [place] [address] Referring Physician Otolaryngology 10/26/23 Jono Boothe RN [address] [place] [address] [address] [place] [address] Robotics Technologist 02/25/24 06/15/24 Sergey Spence MD [address] [place] [address] Referring Physician Gastroenterology 03/09/24 Juhi Connolly, WOMEN'S [employer] [address] [place] [address] [address] [place] [address] Neurology 04/10/24 Jailyn Downey RN [address] [place] [address] [address] [place] [address] Robotics Technologist 06/16/24 documented as of this encounter
--- OUTSIDE RECORDS SUMMARY | 2024-09-16 13:13 | XMS_ITS | Patient Health Record ---
Author Organization [facility] francis Address [address] [place] [address] Care Team Providers Care Patient Office Rep Name Role Phone Miya ORTIZ, Jennifer Primary Care Provider Karen Baker Unavailable [phone] Allergies No Known Allergies Reason For Referral Reason PT APPROVED TO SEE Maximilian MANCILLA FROM DR FREGOSO FOR 4 VISITS ENDING ON 04/01/2025 Diagnosis 1 Polymyalgia rheumati ca (M35.3) Referring Provider First Name Jennifer Referring Provider Last Name Miya Referring Provider Speciality Internal M edicine Referred Organization [facility] linic Referred Provider Karen Mancilla Referred Address [address] [address],[place], [place],[address], Referred Provider Specialty Rheumatology Referral Priority Routine Medications Medication SIG (Take, Route, Frequency, Duration) Notes Start Date End Date Status Gabapentin 600 MG TAKE 1 TABLET BY MOUTH THREE TIMES A DAY Oral Active predniSONE 1 MG TAKE 4 TABLETS BY MOUTH ONCE DAILY for 30 days Active Levothyroxine Sodium 50 MCG take 1 capsule (50 mcg) by oral route once daily Oral 1 Active Ezetimibe 10 MG take 1 tablet (10 mg) by oral route once daily Oral 1 Active Rivastigmine 9.5 MG/24HR Transdermal for 90 Days Active Dicyclomine HCl 10 MG Oral Active Cyclobenzaprine HCl 10 MG 1 tablet twice per day prn Orally twice per day for 30 days Active Multivitamin Adult take 1 capsule by oral route once Oral 1 Active Folic Acid 1 MG take 1 tablet (1 mg) by oral route once daily Oral 1 Active Eszopiclone 3 mg 1 at HS for sleep *Pick strength-form from [facility] for eRX* Active Donepezil HCl 5 MG take 1 tablet (5 mg) by oral route once daily in the evening Oral 1 Active Vitamin B-12 1000 MCG take 1 tablet by oral route once Oral 1 Active DULoxetine HCl 60 MG TAKE 1 CAPSULE BY MOUTH EVERY DAY for 90 Active Losartan Potassium for BP 50 mg 1 at HS *Reorder from [place] [facility] for eRx and Interaction Alerts* Active Pantoprazole Sd - for esophagus 40 mg 1 b.i.d. *Reorder from [facility] for eRx and Interaction Alerts* Active amLODIPine Besylate 5 MG take 1 tablet (5 mg) by oral route once daily Oral 1 Active Vitamin E 1000 UNIT Oral Active Problems Problem Type SNOMED Code ICD Code Onset Dates Problem Status W/U Status Risk Notes Problem Polymyalgia rheumatica (52819043) Polymyalgia rheumatica (M35.3) Active confirmed Problem Backache (296189914) Dorsalgia, unspecified (M54.9) Active confirmed Problem Disorder of bone (92957990) Other specified disorders of bone density and structure, unspecified site (M85.80) Active confirmed Vital Signs Heart Rate 109 /min 12/16/2023 Temperature 98.0 degrees Fahrenheit 12/16/2023 Blood pressure diastolic 90 mm Hg 12/16/2023 Oximetry 93 % 12/16/2023 Height 63 in 12/16/2023 Blood pressure systolic 148 mm Hg 12/16/2023 Weight 154.3 lbs 12/16/2023 BMI 27.33 kg/m2 12/16/2023 Encounters Encounter Location Date Provider Diagnosis [facility] [address] [facility] [address] [place] [address] 12/16/2023 Karen Mancilla PMR (polymyalgia rheumatica) M35.3 ; Lumbar back pain M54.50 and Osteopenia, unspecified location M85.80 [facility] [address] [facility] [address] [place] [address] 04/13/2024 Karen Mancilla [facility] [address] [facility] [address] [place] [address] 12/10/2023 Karen Mancilla Assessments Encounter Date Diagnosis (ICD Code) Assessment Notes Treatment Notes Treatment Clinical Notes Section Notes 12/16/2023 PMR (polymyalgia rheumatica) (ICD-10 - M35.3) clinically stable, continue prednisone 3mg/day, cymbalta and gabapentin, return in 3 to 4 months 12/16/2023 Lumbar back pain (ICD-10 - M54.50) clinically stable, continue prednisone 3mg/day, cymbalta and gabapentin, return in 3 to 4 months 12/16/2023 Osteopenia, unspecified location (ICD-10 - M85.80) clinically stable, continue prednisone 3mg/day, cymbalta and gabapentin, return in 3 to 4 months Plan Of Treatment Next Appt Details Provider Name:Karen Mancilla, 09/22 03:15:00 PM, [address], [address], [place], [address], Insurance Providers Payer Name Payer Address Payer Phone Subscriber Number Group Number Insured Name Patient Relationship to Insured Coverage Start Date Coverage End Date Essence [address] [place] [address] [id number] LinkMalini Self - patient is the insured [employer] P[employer] te [address] [place] [phone] [id number] Malini Joe Self - patient is the insured 1 DO NOT USE [id number] Malini Joe Self - patient is the insured 1 Medical (General) History Medical History History ICD Code Anemia; Aortic aneurysm; Chronic Back Pain; GERD (gastroesophageal reflux disease); Hiatal hernia; Hyperlipidemia; Hypertension; Osteopenia; Pleural condition; PMR (polymyalgia rheumatica); Thyroid nodule; Surgical History Surgery Date(Month/Year) Hiatal Hernia Removal; 2018-04-30 Pleural biopsy; 2018-04-30 Hysterectomy and BSO; 2018-04-30 cholecystectomy; 2018-04-30 Hip fracture repair, left; 2022-10-07
--- OUTSIDE RECORDS SUMMARY | 2024-09-16 13:13 | XMS_ITS ---
Author Organization [facility] francis Address [address] [place] [address] Care Team Providers Care Buggy Operator Name Role Phone Miya ORTIZ, Jennifer Primary Care Provider Cecelia MancillaKaren Finn [phone] REASON FOR VISIT yd/4 month follow up/flc Encounters Encounter Location Date Provider Diagnosis [facility] [address] [facility] [address] [place] [address] 04/13/2024 Karen Al Plan Of Treatment Next Appt Details Provider Name:Karen Mancilla, 09/22 03:15:00 PM, [address], [place], [address], Progress Notes * Malini JOE ADOB: (83 yo F)Acc No.[id number]:04/13/2024 Progress Notes Patient: Malini MAY Provider: Mignon MANCILLA MD :1940 A ge:83 Y S ex:Female Date:04/13/2024 Address:[facility] [address] [facility] [id number] Pcp:Jennifer Holliday MD Subjective: * Chief Complaints: * 1 . Yd/4 month follow up/flc. * Medical History: Objective: * Vitals: Assessment: Plan: * Treatment: * Procedure Codes: N OSHW No Show Charge * Billing Information: * Visit Code: * Procedure Codes: NOSHW No Show Charge. * Sign off status: Completed true * Provider: Mignon MANCILLA MD Date: 0 04/13/2024 Generated for Nate madrid/Rodolfo/Jennifer on: 0 09/16/2024 01:13 PM MEASUREMENT PSYCHOLOGIST
--- OUTSIDE RECORDS SUMMARY | 2024-09-16 13:13 | XMS_ITS ---
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 Holliday Medications Medication SIG (Take, Route, Frequency, Duration) Notes Start Date End Date Status Pantoprazole Sd - for esophagus 40 mg 1 b.i.d. *Reorder from [employer] for eRx and Interaction Alerts* Active amLODIPine Besylate 5 MG take 1 tablet (5 mg) by oral route once daily Oral 1 Active Vitamin E 1000 UNIT Oral Active Levothyroxine Sodium 50 MCG take 1 capsule (50 mcg) by oral route once daily Oral 1 Active Ezetimibe 10 MG take 1 tablet (10 mg) by oral route once daily Oral 1 Active Losartan Potassium for BP 50 mg 1 at HS *Reorder from [employer] for eRx and Interaction Alerts* Active Multivitamin Adult take 1 capsule by oral route once Oral 1 Active Eszopiclone 3 mg 1 at HS for sleep *Pick strength-form from [employer] for eRX* Active Donepezil HCl 5 MG take 1 tablet (5 mg) by oral route once daily in the evening Oral 1 Active Vitamin B-12 1000 MCG take 1 tablet by oral route once Oral 1 Active DULoxetine HCl 60 MG TAKE 1 CAPSULE BY MOUTH EVERY DAY for 90 Active Cyclobenzaprine HCl 10 MG 1 tablet twice per day prn Orally twice per day for 30 days 01/09/2024 Active Rivastigmine 9.5 MG/24HR Transdermal for 90 Days Active Gabapentin 600 MG TAKE 1 TABLET BY MOUTH THREE TIMES A DAY Oral 04/04/2023 Active predniSONE 1 MG TAKE 4 TABLETS BY MOUTH ONCE DAILY for 30 Active Dicyclomine HCl 10 MG Oral Active Folic Acid 1 MG take 1 tablet (1 mg) by oral route once daily Oral 1 Active Vital Signs Temperature 98.0 degrees Fahrenheit 12/16/19 24 Blood pressure systolic 148 mm Hg 12/16/19 24 Blood pressure diastolic 90 mm Hg 024 Heart Rate 109 /min 12/16/2023 Height 63 in 12/16/2023 Weight 154.3 lbs 12/16/2023 BMI 27.33 kg/m2 12/16/2023 Oximetry 93 % 12/16/2023 Encounters Encounter Location Date Provider Diagnosis [facility] [address] [facility] [address] [place] [address] 12/16/2023 Karen Mancilla PMR (polymyalgia rheumatica) M35.3 ; Lumbar back pain M54.50 and Osteopenia, unspecified location M85.80 Assessments Encounter Date Diagnosis (ICD Code) Assessment [...] months Plan Of Treatment Next Appt Details Follow Up: 4 Months, Reason: Provider Name:Karen Al, 09/22 03:15:00 PM, [address], [place], [address], Progress Notes * Malini JOE ADOB: (83 yo F)Acc No.[id number]:12/16/2023 Progress Notes Patient: Malini MAY Provider: Mignon MANCILLA MD :1940 A ge:83 Y S ex:Female Date:12/16/2023 Address:[facility] [address] [place], [place] Pcp:Jennifer Holliday MD Subjective: * Chief Complaints: * P MRPCP Dr. Holliday * HPI: G eneral Follow up: on prednisone 3 mg/day, had nore pain when prednisone was decreased to 2mg/day, now back on 3mg/day, on gabapentin 600mg tid and Cymbalta 60mg/day, low back and L hip ache hx of L hip fracture and surgery, sees Dr. Hudson, had injection in the back DEXA: 12/2020 - T score -2.3 left fem neck, -1.9 total L hip, normal L1-4, takes vit D, to have some dental work done, to see endo (Dr. Day) underwent microwave ablation of L renal mass. * ROS: G eneral / Constitutional: Patient denies f kaleb, chills. P atient complains of?fatigue. M usculoskeletal: Patient complains of s ee HPI. S kin: Patient denies r mena. * Medical History: * Surgical History: H iatal Hernia Removal; [id number] biopsy; [id number] and BSO; [id number]; [id number] fracture repair, left; 2022-10-07 * Hospitalization/Major Diagno stic Procedure: * Family History: M igrated Family History: Kidney Cancer , Pancreatic Cancer . * Social History: M igrated Social History: M igrated Social History: :: 4 Children , :: Carbon monoxide detectors-PRESENT , :: Seatbelt-WEARS , :: Smoke detectors-PRESENT , Exercise :: Active but no formal exercise , Marital Status :: , Substance Use :: Alcohol-Does not give any significant history , Substance Use :: Former smoker , Substance Use :: Tobacco :: Former :: note : quit 1973. * Medications: T akingRivastigmine 9.5 MG/24HR Patch 24 Hour Transdermal Multivitamin Adult Tablet take 1 capsule by oral route once Oral 1 Eszopiclone 3 mg 1 at HS for sleep , Notes to Pharmacist: *Pick strength-form from [employer] for eRX*Donepezil HCl 5 MG Tablet take 1 tablet (5 mg) by oral route once daily in the evening Oral 1 Vitamin B-12 1000 MCG Tablet take 1 tablet by oral route once Oral 1 Losartan Potassium for BP 50 mg 1 at HS , Notes to Pharmacist: *Reorder from [facility] for eRx and Interaction Alerts*Pantoprazole Sd - for esophagus 40 mg 1 b.i.d. , Notes to Pharmacist: *Reorder from [facility] for eRx and Interaction Alerts*amLODIPine Besylate 5 MG Tablet take 1 tablet (5 mg) by oral route once daily Oral 1 Vitamin E 1000 UNIT Capsule Oral Levothyroxine Sodium 50 MCG Tablet take 1 capsule (50 mcg) by oral route once daily Oral 1 Ezetimibe 10 MG Tablet take 1 tablet (10 mg) by oral route once daily Oral 1 Dicyclomine HCl 10 MG Capsule Oral Folic Acid 1 MG Tablet take 1 tablet (1 mg) by oral route once daily Oral 1 Gabapentin 600 MG Tablet TAKE 1 TABLET BY MOUTH THREE TIMES A DAY Oral predniSONE 1 MG Tablet TAKE 4 TABLETS BY MOUTH ONCE DAILY DULoxetine HCl 60 MG Capsule Delayed Release Particles TAKE 1 CAPSULE BY MOUTH EVERY DAY Cyclobenzaprine HCl 10 MG Tablet 1 tablet twice per day prn Orally twice per day , stop date 01/09/2024Medication List reviewed and reconciled with the patientTaking Rivastigmine 9.5 MG/24HR Patch 24 Hour Transdermal Taking Multivitamin Adult Tablet take 1 capsule by oral route once Oral 1 Taking Eszopiclone 3 mg 1 at HS for sleep , Notes to Pharmacist: *Pick strength-form from [facility] for eRX*Taking Donepezil HCl 5 MG Tablet take 1 tablet (5 mg) by oral route once daily in the evening Oral 1 Taking Vitamin B-12 1000 MCG Tablet take 1 tablet by oral route once Oral 1 Taking Losartan Potassium for BP 50 mg 1 at HS , Notes to Pharmacist: *Reorder from [facility] for eRx and Interaction Alerts*Taking Pantoprazole Sd - for esophagus 40 mg 1 b.i.d. , Notes to Pharmacist: *Reorder from [facility] for eRx and Interaction Alerts*Taking amLODIPine Besylate 5 MG Tablet take 1 tablet (5 mg) by oral route once daily Oral 1 Taking Vitamin E 1000 UNIT Capsule Oral Taking Levothyroxine Sodium 50 MCG Tablet take 1 capsule (50 mcg) by oral route once daily Oral 1 Taking Ezetimibe 10 MG Tablet take 1 tablet (10 mg) by oral route once daily Oral 1 Taking Dicyclomine HCl 10 MG Capsule Oral Taking Folic Acid 1 MG Tablet take 1 tablet (1 mg) by oral route once daily Oral 1 Taking Gabapentin 600 MG Tablet TAKE 1 TABLET BY MOUTH THREE TIMES A DAY Oral Taking predniSONE 1 MG Tablet TAKE 4 TABLETS BY MOUTH ONCE DAILY Taking DULoxetine HCl 60 MG Capsule Delayed Release Particles TAKE 1 CAPSULE BY MOUTH EVERY DAY Taking Cyclobenzaprine HCl 10 MG Tablet 1 tablet twice per day prn Orally twice per day , stop date 01/09/2024Medication List reviewed and reconciled with the patient * Allergies: N .K.D.A.no[Allergies Verified] Objective: * Vitals: B P:148/90mm Hg, HR:109/min, Temp:98.0F, Oxygen sat %:93%, Wt:154.3lbs, Ht:63in, BMI:27.33Index. * Examination: G eneral Examination: General appearance: a lert, well-nourished and in no acute distress. Head: n ormocephalic, atraumatic. Eyes: n ormal. Skin: n o rash. Lungs: r espiratory effort normal. N eurology: Speech: n ormal. P sychiatry: Affect / mood: a ppropriate. R heumatology: b il troch bursae tender, lumbar area tender. Assessment: * Assessment: 1. P MR (polymyalgia rheumatica) - M35.3 (Primary) 2 . L umbar back pain - M54.50 3 . O steopenia, unspecified location - M85.80 clinically stable, continue prednisone 3mg/day, cymbalta and gabapentin, return in 3 to 4 months. Plan: * Treatment: * Procedure Codes: * Follow Up: 4 Months * Billing Information: * Visit Code: 19007 Office Visit, Est Pt., Level 4. 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 Hudson, had injection in the back DEXA: 12/2020 - T score -2.3 left fem neck, -1.9 total L hip, normal L1-4, takes vit D, to have some dental work done, to see endo (Dr. Day) underwent microwave ablation of L renal mass Examination Category Sub-Category Detail Notes Category Not es Rheumatology truman troch bursae tender, lumbar area tender Neurology Speech: normal Psychiatry Affect / mood: appropriate General Examination General appearance: alert, w ell-nourished and in no acute distress Head: normocephalic, atrau matic Eyes: normal Lungs: respiratory effort n ormal Skin: no rash
--- OUTSIDE RECORDS SUMMARY | 2024-09-16 13:13 | XMS_ITS | Clinical Summary ---
Author Organization [facility] Address [address] [place] [address] Care Team Providers Care Supervisor Inspecting Name Role Phone Jennifer Holliday MD Primary Care Provid er Jennifer Holliday MD Unavailable [phone] Jeramy Lester MD Unavailable Karen Melendez MD Unavailable Alysia Ty MD Unavailable [phone] Reymundo Johnston MD Unavailable Soledad West MD Unavailable [phone] ADELAIDE Luciano IV, C Joseph Unavailable [phone] Vasile Mcmanus MD Unavailable Kurtis Ochoa MD Unavailable [phone] Hermes Hernandez MD Unavailable Juan C Montelongo MD Unavailable Sergey Spence MD Unavailable + Juhi Connolly NP Unavailable [phone] Jailyn Downey RN Unavailable [phone] Allergies Active Allergy Reactions Criticality Noted Date [...] 03/18/2022 Assessment & Plan (09/06/2024 1:21 PM SPA ASSOCIATE): Follow up with Edy Arthritis of right knee 02/05/2022 Assessment & Plan (03/24/2022 11:39 AM CDT): Patient appears to have a small effusion the knee and some reactive synovitis. Scheduled to see a human resources executive assistant in early April and who would be advisable to keep that appointment. It may be helpful to contact the human resources executive assistant let them know she is having acute [...] oxygen. Multifocal pneumonia 12/02/2020 Lesion of left [place] kidney 12/02/2020 Assessment & Plan (12/02/2020 11:11 PM CDT): Noted on CT scan. 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 Will consult Urology. 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 Mcmanus at [facility] on December 10. Patient has ecchymosis [...] 02/19/2020 Assessment & Plan (08/31/2024 9:46 AM SPA ASSOCIATE): Labs ordered Assessment & Plan (02/11/2021 12:53 [...] 04/11/2018 Assessment & Plan (09/09/2023 8:21 AM SPA ASSOCIATE): Patient had left thyroid nodule for almost [...] 03/29/2018 Assessment & Plan (09/06/2024 1:22 PM SPA ASSOCIATE): Follow up with dirk Sciatic pain 03/29/2018 Pleural mass 03/16/2018 Rib pain on right side 03/16/2018 Age-related osteoporosis wit hout current pathological fracture 06/23/2017 Assessment & Plan (09/06/2024 1:21 PM SPA ASSOCIATE): Follow up with Dr Day Assessment & Plan (09/09/2023 8:21 AM SPA ASSOCIATE): Osteoporosis with high-risk status post left hip [...] precautions Assessment & Plan (09/28/2017 9:37 PM SPA ASSOCIATE): recent DEXA scan results And recent labs [...] months Assessment & Plan (06/23/2017 9:27 AM SPA ASSOCIATE): Reviewed pt. Recent DEXA scan results And [...] 03/17/2017 Assessment & Plan (08/31/2024 9:46 AM SPA ASSOCIATE): Labs ordered Assessment & Plan (03/17/2017 11:16 AM CDT): Check cbc Gastroesophageal reflux disease 08/24/2016 Overview (11/05/2016): ESOPHAGEAL REFLUX Assessment & Plan (09/02/2024 11:01 PM SPA ASSOCIATE): Continue pantoprazole Assessment & Plan (12/02/2020 11:06 [...] at the next regular appointment. Polymyalgia rheumatica ([facility]) 09/26/2014 Overview (11/05/2016): PMR - Polymyalgia rheumatica [...] Hyperlipidemia Assessment & Plan (08/31/2024 9:47 AM SPA ASSOCIATE): Labs ordered Continue zetia and atorvastatin Assessment & Plan (03/17/2017 11:05 AM CDT): Lipid abnormalities are improving with treatment. Nutritional counseling was provided. Lipids will be reassessed 4mos. Hypertension 07/11/2012 Overview (11/05/2016): Hypertension Assessment & Plan (08/31/2024 9:47 AM SPA ASSOCIATE): Stable continue Assessment & Plan (12/02/2020 11:06 [...] Osteoporosis 05/16/2014 06/15/2018 Overview (11/05/2016): OSTEOPOROSIS NOS Encounters Date Type Department Care Team Description 09/14/2024 AMBROSIO IP Outreach [facility] Accountable Care Organization [address] [place] [id number] Jenise Holloway LPN 09/03/2024 Orders Only [facility] Medical [facility] at [address] [address] Benita Giraldo NP 08/31/2024 11:10 AM SPA ASSOCIATE Lab [address] [address] Iron deficiency anemia, unspecified iron deficiency anemia type; Vitamin D deficiency; Encounter for Medicare annual wellness exam; Mixed hyperlipidemia; Primary hypertension 08/31/2024 9:30 AM SPA ASSOCIATE Office Visit [facility] Medical [facility] at [address] [address] Benita Giraldo NP Encounter for [...] osteoporosis without current pathological fracture 08/16/2024 Telephone [facility] [id number] [place] [address] [address] [address] Franc Duarte II, MD 08/09/2024 Telephone [facility] Medical Group at [address] [address] Jennifer Holliday MD Referral Request 06/22/2024 3:45 PM SPA ASSOCIATE Office Visit [facility] Medical Group [facility] at [address] [address] Emiliano Trinidad NP Bilateral acute serous otitis media, recurrence not specified (Primary Dx) from Last 3 Months Immunizations Name Administration Dates Next Due Influenza, [...] 01/30/2015 Pneumococcal Polysaccharide PPV23 06/15/2018 Tdap 02/15/2019 Surgical History Surgery Date Site/Laterality Comments CHOLECYSTECTOMY 08/02/1987 - 08/01/1988 Cholecystectomy APPENDECTOMY Appendectomy TONSILLECTOMY Tonsillectomy CHOLECYSTECTOMY Cholecystectomy OTHER SURGICAL HISTORY 2015 & 2017 Hiatal Hernia: Laproscopic Hiatal Hernia Repair HERNIA REPAIR 08/02/2016 - 08/01/2017 Hernia repair EYE SURGERY Bilateral cataracts COLONOSCOPY IR FINE NEEDLE ASPIRATION W IMAGE GUIDANCE 05/11/2018 N/A HYSTERECTOMY BREAST BIOPSY 08/02/1986 - 08/01/1987 Left Breast biopsy OTHER SURGICAL HISTORY throat Medical History Medical History Date Comments Hypertension Hypertension Hyperlipidemia Hyperlipidemia Hx Other Medical breast surgery Anemia Anemia Depression Depression Hx Other Medical Hiatal Hernia Hx Other Medical Lap Hernia Repa ir Polymyalgia rheumatica (CMS/HCC) (HCC) Osteoporosis GERD (gastroesophageal reflux disease) Motion sickness Lung mass Urinary tract infection Thyroid nodule History of transfusion 2017 Scoliosis Smoking Skin cancer CAREN on CPAP 02/16/2023 Family History Medical History Relation Name Comments Heart attack Father Myocardial infa rction; also stroke Arthritis Maternal Grandmother arthrit is; Hyperlipidemia Other 1 Family histor y of Hyperlipidemia; Hypertension Other 2 Family history of Hypertension; Heart attack Sister 2 Myocardial infa rction; Relation Name Status Comments Father Alive Maternal Grandmother Alive Niece Alive Other 1 Other 2 Sister 1 Alive Sister 2 Social History Tobacco Use Types Packs/Day Years Used Date Smoking Tobacco: Former Cigarettes 1 26.3 0 04/11/1956 - 08/02/1982 Smokeless Tobacco: Never Tobacco Cessation:Counseling Given: Not Answered Alcohol Use Standard Drinks/Week Comments Yes 0 (1 standard drink = 0.6 oz pur e alcohol) occasionally [employer] Utilities Answer Date Recorded In the past 12 months has [employer], gas, oil, or water [employer] threatened to shut off services in your [...] 02/25/2024 How often do you attend chur or quaker services? More than 4 times per year 02/25/2024 Do you belong to any clubs o r organizations such as orthodox groups, unions, fraternal or athletic groups, or [...] place to sleep or slept in a senior living (including now)? No 12/10/2022 Housing Stability Vital Sign Answer Angel e Recorded In the last 12 months, was t here a time when you were not able to pay the mortgage or rent on time? No 02/25/2024 In the past 12 months, how m any times have you moved where you were living? 0 02/25/2024 At any time in the past 12 m [facility], were you homeless or living in a senior living (including now)? No 02/25/2024 Comments No Sex and Gender Information Value Date Recorded Sex Assigned at Not on file Legal Sex Female 11:24 PM SPA ASSOCIATE Gender Identity Female 02/03/2023 6:56 PM CDT Sexual Orientation Not on file Obstetrics History Para Term AB IAB SAB Ectopic Multiple Livin g Live Births 5 4 4 Date Outcome GA Total Labor Labor/2nd/3rd Weight Sex Type Anes PTL Ethel A1 A5 Name Clin Term Term Term Term Last Filed Vital Signs Vital Sign Reading Time Taken Comments Blood Pressure 128/82 08/31/2024 9:50 AM SPA ASSOCIATE Pulse 82 08/31/2024 9:50 AM SPA ASSOCIATE Temperature 36.2 C (97.2 F) 08/31/2024 9:50 AM SPA ASSOCIATE Respiratory Rate 16 08/31/2024 9:50 AM SPA ASSOCIATE Oxygen Saturation 93% 08/31/2024 9:50 AM SPA ASSOCIATE Inhaled Oxygen Concentration - - Weight 67.1 kg (148 lb) 08/31/2024 9:50 AM SPA ASSOCIATE Height 152.4 cm (5') 08/31/2024 9:50 AM SPA ASSOCIATE Body Mass Index 28.9 08/31/2024 9:50 AM SPA ASSOCIATE Plan of Treatment Health Maintenance Due Date Last Done Comments Hepatitis B Screening 1958 Osteoporosis Screening-Bone Density Scan 01/08/2023 01/08/2021, 05/28/2017, 09/25/2013 Covid-19 Vaccine ( season) 2024 06/02/2023, 07/10/2021, 10/28/2020, Additional history exists Influenza Vaccine (#1) 2024 , 04/02/2023, 06/08/2022, Additional history exists Zoster Vaccine (1 of 2) 10/25/2024 Post poned from 1991 (Insurance / Financial) Depression Screening 08/31/2025 08/31/2024, 10/26/2023, 06/16/2023, Additional history exists Fall Risk Assessment 08/31/2025 08/31/2024, 04/12/2024, 10/26/2023, Additional history exists Well Visit 65+ 08/31/2025 08/31/2024, 06/02, 02/04/2023, Additional history exists DTaP/Tdap/Td Vaccine (2 - Td or Tdap) 02/15/2029 02/15/2019 Pneumococcal vaccine 65+ Completed 06/15/2018, 08/2014 Goals Goal Patient Goal Type Associated Problems Recent Progress Patient-Stated? Author AMBROSIO General Goal - Patient schedules and keeps appointments with all recommended providers ACO Care Management On track(2024 4:08 PM SPA ASSOCIATE) No Jono Boothe, RN Note: Problem: Potential [...] ACO Care Management On track(2024 4:08 PM SPA ASSOCIATE) No Jailyn Downey, ATIYA Note: Problem: At Risk for Falls related [...] URINALYSIS, MICROSCOPIC ONLY Routine 08/31/2024 12:18 PM SPA ASSOCIATE Encounter for Medicare annual wellness exam ALBUMIN CREATININE RATIO, URINE Routine 08/31/2024 12:18 PM SPA ASSOCIATE Primary hypertension URINALYSIS AND REFLEX TO MICROSCOPIC AND CULTURE Routine 08/31/2024 12:18 PM SPA ASSOCIATE Encounter for Medicare annual wellness exam URINE CULTURE Routine 08/31/2024 12:18 PM SPA ASSOCIATE EGFR Routine 08/31/2024 11:21 AM SPA ASSOCIATE Encounter for Medicare annual wellness exam DIFFERENTIAL AUTO Routine 08/31/2024 11:21 AM SPA ASSOCIATE Encounter for Medicare annual wellness exam CBC WITH AUTO DIFFERENTIAL Routine 08/31/2024 11:21 AM SPA ASSOCIATE Encounter for Medicare annual wellness exam COMPREHENSIVE METABOLIC PANEL Routine 08/31/2024 11:21 AM SPA ASSOCIATE Encounter for Medicare annual wellness exam LIPID PANEL Routine 08/31/2024 11:21 AM SPA ASSOCIATE Mixed hyperlipidemia HEMOGLOBIN A1C Routine 08/31/2024 11:21 AM SPA ASSOCIATE Encounter for Medicare annual wellness exam VITAMIN D 25 HYDROXY Routine 08/31/2024 11:21 AM SPA ASSOCIATE Vitamin D deficiency IRON PROFILE W/ IBC Routine 08/31/2024 11:21 AM SPA ASSOCIATE Iron deficiency anemia, unspecified iron deficiency anemia type POCT RAPID STREP Routine 06/22/2024 3:38 PM SPA ASSOCIATE Bilateral acute serous otitis media, recurrence not specified DEXA AXIAL SKELETON BONE DENSITY 1 OR MORE SITES Schedule Routine, Read Routine (OP Routine) 01/08/2021 11:43 AM CDT Osteopenia of left hip from Last 3 Months or Most Recently Relevant to Health Maintenance Results * (ABNORMAL) Urinalysis reflex to microscopic and culture Urine, clean voided (08/31/2024 12:18 PM SPA ASSOCIATE) Color, ur Yellow Yellow Comment:[facility] [address] [place] [address] Clarity, ur Turbid(A) Clear STACEY Comment:Testing performed by : [facility], [place] [address] Specific gravity, ur 1.018 1.003 - 1.030 STACEY Comment:Testing performed by : [facility], [place] [address] pH, urine 6.0 CERNER CH Comment: Interpretive Data U rine pH is affected by diet, medications, systemic acid-base disturbances, and renal tubular function. pH may affect urinary stone formation. For example, urine pH below 6.0 may help reduce the tendency for calcium phosphate stones and pH greater than 6.0 may reduce the tendency for uric acid stone formation. Source: [facility] Current Interpretive Data was last revised on 2017 Testing performed by: [facility], [place] [address] Protein, ur ql Trace Negative CERNER CH Comment:Testing performed by : [facility], [place] [address] Glucose, ur ql Negative Negative CERNER CH Comment:Testing performed by : [facility] [address], [place], [place] [address] Ketones, ur Negative Negative CERNER CH Comment:Testing performed by : [facility], [place] [address] Bilirubin, ur Negative Negative CERNER CH Comment:Testing performed by : [facility], [place] [address] Blood, ur Negative Negative CERNER CH Comment:Testing performed by : [facility], [place] [address] Urobilinogen, ur <2.0 <2.0 mg/dL CERNER CH Comment:Testing performed by : [facility], [place] [address] Nitrite, ur Negative Negative CERNER CH Comment:Testing performed by : [facility], [place] [address] Leukocyte esterase, ur 2+(A) Negative CERNER CH Comment:Testing performed by : [facility], [place] [address] UA reflex comment Reflex to microscopic UA will be performed. CERNER Comment:Testing performed by : [facility], [address] [address] Urine, clean voided 08/31/2024 12:18 PM SPA ASSOCIATE 08/31/2024 12:18 PM SPA ASSOCIATE us Benita Giraldo NP LAB MICROBIOLOGY - GENERA L ORDERABLES Final Result STACEY [id number] [place] [address] * (ABNORMAL) Albumin Creatinine Ratio, Urine (08/31/2024 12:18 PM SPA ASSOCIATE) Albumin Ur 39.2 mg/L Comment: Interpretive Data No reference range established. Current interpretive data was last revised 2018. Creatinine Ur 99.0 mg/dL [facility] Comment: Interpretive Data No reference range established. Current interpretive data was last revised 2018. Albumin Creatinine Ratio, Ur 40(H) 1 - 29 mg/g [facility] Urine 08/31/2024 12:1 8 PM SPA ASSOCIATE 08/31/2024 7:43 PM SPA ASSOCIATE Benita Giraldo NP LAB URINE ORDERABLES Shasta murray Result [facility] [address] [place] [address] * (ABNORMAL) Urinalysis, microscopic only (08/31/2024 12:18 PM SPA ASSOCIATE) WBC, ur 11-20(A) 0 - 5 /HPF Comment:Testing performed by : [facility], [place] [address] RBC, ur 0-2 0 - 2 /HPF [facility] Comment:Testing performed by : [facility] [address], [place] [address] Epithelial cells, squamous, ur 1-5 0 - 5 /HPF [facility] Comment:Testing performed by : [facility] [address], [place] [address] Bacteria, ur Trace(A) [facility] Comment:Testing performed by : [facility] [address], [place] [address] Mucous, ur Present(A) [facility] Comment:Testing performed by : [facility] [address], [place] [address] Hyaline casts, ur 6-10 0 - 10 /LPF STACEY Comment:Testing performed by : [facility], [place] [address] Culture Reflex Comment Reflex to urine culture will be performed. [facility] Comment:Testing performed by : [facility] [address], [place] [address] Urine, clean voided 08/31/2024 12:18 PM SPA ASSOCIATE 08/31/2024 2:19 PM SPA ASSOCIATE Benita Giraldo TILT TRAY DRIVER LAB URINE ORDERABLES Shasta l Result Performing Organization Address [facility]/ZIP Co de Phone Number STACEY [address] Department [place] [address] * (ABNORMAL) Urine culture Urine, clean voided (08/31/2024 12:18 PM SPA ASSOCIATE) Report Final Report: Greater than or equal to 100,000 colonies/mL of Klebsiella pneumoniae Plus growth of clinically insignificant bacterial alena. (.) Comment:Testing performed by : [facility], [address] [place]., [address] Organism KLEBSIELLA PNEUMONIAE [facility] Organism PLUS GROWTH OF CLINICALLY INSIGNIFICANT ALENA. [facility] Urine, clean voided 08/31/2024 12:18 PM SPA ASSOCIATE 08/31/2024 5:55 PM SPA ASSOCIATE Narrative [facility] - 09/04/2024 6:10 AM SPA ASSOCIATE Urine culture reflexed based upon urinalysis results. Testing performed by [facility] ([phone]) Organism Antibiotic Method Susceptibility Klebsiella pneumoniae Ampicillin [...] Klebsiella pneumoniae Cefdinir INTERPRETATION Susceptible Benita Giraldo TILT TRAY DRIVER LAB MICROBIOLOGY - GENERA L ORDERABLES Final Result Performing Organization Address City/[facility]/ZIP Co de Phone Number STACEY ZAMBRANO [address] Department [employer] [place], [place] [id number] * eGFR (08/31/2024 11:21 AM SPA ASSOCIATE) eGFR 74 >=60 mL/min/1. 73 m2 Comment: [...] was last reviewed 2021. Testing performed by: [facility], [place] [address] Blood 08/31/2024 11:2 1 AM SPA ASSOCIATE 08/31/2024 11:38 AM SPA ASSOCIATE Benita Giraldo NP LAB BLOOD ORDERABLES Shasta murray Result STACEY [address] [place] [address] * (ABNORMAL) Differential, auto (08/31/2024 11:21 AM SPA ASSOCIATE) Neutrophil abs 6.3 1.5 - 6.5 K/cumm Comment:Testing performed by : [facility] [address], [place] [address] Imm gran abs 0.0 0.0 - 0.1 K/cumm STACEY ZAMBRANO Comment:Testing performed by : [facility], [place] [address] Lymphocyte abs 1.1 0.8 - 3.3 K/cumm STACEY ZAMBRANO Comment:Testing performed by : [facility], [place] [address] Monocyte abs 0.9(H) 0.2 - 0.8 K/cumm CERNER CH Comment:Testing performed by : [facility], [facility], [place] [address] Eosinophil abs 0.3 0.0 - 0.5 K/cumm CERNER CH Comment:Testing performed by : [facility], [facility], [place] [address] Basophil abs 0.1 0.0 - 0.1 K/cumm CERNER CH Comment:Testing performed by : [facility], [facility] [address], [place] [address] Neutrophil pct 72.5 % CERNER CH Comment: Interpretive Data Percent cell count reference ranges are not reported, since discordance with absolute values may lead to misinterpretation of CBC data. Current Interpretive Data was last revised on 2017. Testing performed by: [facility], [facility] [address], [place] [address] Imm gran pct 0.3 % CERNER CH Comment: Interpretive Data Percent cell count reference ranges are not reported, since discordance with absolute values may lead to misinterpretation of CBC data. Current Interpretive Data was last revised on 2017. Testing performed by: [facility], [facility] [place] [address] Lymphocyte pct 12.8 % CERNER CH Comment: Interpretive Data Percent cell count reference ranges are not reported, since discordance with absolute values may lead to misinterpretation of CBC data. Current Interpretive Data was last revised on 2017. Testing performed by: [facility], [facility] [place] [address] Monocyte pct 10.8 % CERNER CH Comment: Interpretive Data Percent cell count reference ranges are not reported, since discordance with absolute values may lead to misinterpretation of CBC data. Current Interpretive Data was last revised on 2017. Testing performed by: [facility], [facility] [place] [address] Eosinophil pct 2.9 % CERNER CH Comment: Interpretive Data Percent cell count reference ranges are not reported, since discordance with absolute values may lead to misinterpretation of CBC data. Current Interpretive Data was last revised on 2017. Testing performed by: [facility], [facility] [address], [place] [address] Basophil pct 0.7 % CERNER CH Comment: Interpretive Data Percent cell count reference ranges are not reported, since discordance with absolute values may lead to misinterpretation of CBC data. Current Interpretive Data was last revised on 2017. Testing performed by: [facility] [address], [place] [address] Blood 08/31/2024 11:2 1 AM SPA ASSOCIATE 08/31/2024 11:21 AM SPA ASSOCIATE Benita Giraldo TILT TRAY DRIVER LAB BLOOD ORDERABLES Shasta l Result Performing Organization Address [facility] Co de Phone Number [facility] [address] [facility] [place] [address] * Iron profile w/ IBC (08/31/2024 11:21 AM SPA ASSOCIATE) Pathologist [facility] Iron 65 35 - 145 mcg/dl TIBC 285 250 - 400 mcg/dL [facility] Transferrin saturation 23 20 - 50 % CERNER Blood 08/31/2024 11:2 1 AM SPA ASSOCIATE 08/31/2024 9:12 PM SPA ASSOCIATE Benita Giraldo TILT TRAY DRIVER LAB BLOOD ORDERABLES Shasta l Result Performing Organization Address [facility] de Phone Number [facility] [address] [address] [facility] [place] [address] * (ABNORMAL) CBC with auto differential (08/31/2024 11:21 AM SPA ASSOCIATE) WBC 8.7 3.8 - 9.9 K/cumm Comment:Testing performed by : [facility], [place] [address] Hgb 13.1 11.9 - 15.5 g/dL CERNER Comment:Testing performed by : [facility], [place] [address] Hct 39.8 35.6 - 45.5 % CERNER CH Comment:Testing performed by : [facility] [address], [place] [address] Plt 300 150 - 400 K/cumm CERNER CH Comment:Testing performed by : [facility] [address], [place] [address] MPV 10.6 9.1 - 12.3 fL CERNER CH Comment:Testing performed by : [facility], [facility] [address] [place], [place] [address] RBC 4.16 3.90 - 5.20 M/cumm CERNER CH Comment:Testing performed by : [facility], [address] [place], [place] [address] MCV 95.7 81.3 - 96.4 fL CERNER CH Comment:Testing performed by : [facility], [address] [place], [place] [address] MCH 31.5 27.1 - 33.3 pg CERNER CH Comment:Testing performed by : [facility], [facility] [address] [place], [place] [address] MCHC 32.9 32.3 - 35.7 g/dL CERNER CH Comment:Testing performed by : [facility], [facility] [address] [place] [address] RDW CV 14.4 11.1 - 14.9 % CERNER CH Comment:Testing performed by : [facility] [place] [address] RDW SD 51.0(H) 35.7 - 48.1 fL CERNER CH Comment:Testing performed by : [facility], [facility] [address] [place], [place] [address] NRBC abs 0.00 0.00 - 0.01 K/cumm CERNER CH Comment:Testing performed by : [facility], [facility] [place] [address] Blood 08/31/2024 11:2 1 AM SPA ASSOCIATE 08/31/2024 11:21 AM SPA ASSOCIATE Benita Giraldo TILT TRAY DRIVER LAB BLOOD ORDERABLES Shasta l Result [facility] [facility] [address] [place] [address] * Vitamin D 25 hydroxy (08/31/2024 11:21 AM SPA ASSOCIATE) Vitamin D 25-OH 58 30 - 80 ng/mL Blood 08/31/2024 11:2 1 AM SPA ASSOCIATE 08/31/2024 9:03 PM SPA ASSOCIATE Benita Giraldo TILT TRAY DRIVER LAB BLOOD ORDERABLES Shasta l Result Performing Organization Address [facility] Co de Phone Number [facility] [address] [facility] [place] [address] * (ABNORMAL) Hemoglobin A1c (08/31/2024 11:21 AM SPA ASSOCIATE) Pathologist [facility] Hgb A1C 5.8(H) 4.0 - 5.6 % Estimated Average Glucose 120 mg/dL STACEY Comment: The ADA recommends reporting an estimated Average Glucose (eAG) with all Hemoglobin A1c results using the equation derived from a study of 507 normal and diabetic adults. Minority populations were underrepresented and children were not included. (Diabetes Care 31:1994-7555, 2008). The eAG is not equivalent to a fasting glucose. Blood 08/31/2024 11:2 1 AM SPA ASSOCIATE 08/31/2024 9:16 PM SPA ASSOCIATE Benita Giraldo TILT TRAY DRIVER LAB BLOOD ORDERABLES Shasta l Result Performing Organization Address [facility] Co de Phone Number DEONDRERITIKA [address] [place] [address] * Lipid panel (08/31/2024 11:21 AM SPA ASSOCIATE) Pathologist [facility] Cholesterol 139 30 - 199 mg/dL Comment: [...] last revised on 2018. Testing performed by: [facility], [address], [place] [address] Triglycerides 85 <=149 mg/dL STACEY ZAMBRANO Comment: [...] last revised on 2018. Testing performed by: [facility], [address] [place] [address] HDL 65 >=40 mg/dL STACEY Comment: Interpretive [...] last revised on 2018. Testing performed by: [facility], [address] [place] [address] LDL, calculated 58 <=129 mg/dL STACEY Comment: [...] last revised on 2024. Testing [facility]: [facility] [address], [place] [address] Non-HDL Cholesterol 74 mg/dL CERNER Comment: Interpretive Data Ages < or = [...] last revised on 2018. Testing performed [facility]: [facility] [address], [place] [address] Chol/HDL ratio 2 [facility] Comment:Testing performed by : [facility] [address], [place] [address] Blood 08/31/2024 11:2 1 AM SPA ASSOCIATE 08/31/2024 11:21 AM SPA ASSOCIATE Benita Giraldo TILT TRAY DRIVER LAB BLOOD ORDERABLES Shasta murray Result [facility] [address] [place] [address] * Comprehensive metabolic panel (08/31/2024 11:21 AM SPA ASSOCIATE) Sodium 143 135 - 145 mmol/L Comment:Testing performed by : [facility] [address], [place] [address] Potassium, pl 4.2 3.3 - 4.9 mmol/L [facility] Comment:Testing performed by : [facility] [address], [place] [address] Chloride 107 97 - 110 mmol/L [facility] Comment:Testing performed by : [facility] [address], [place] [address] CO2 27 22 - 32 mmol/L [facility] Comment:Testing performed by : [facility] [address], [place] [address] Anion gap 9 2 - 15 mmol/L [facility] Comment:Testing performed by : [facility] [place] [address] BUN 18 6 - 25 mg/dL [facility] CH Comment:Testing performed by : [facility] [place] [address] Creatinine 0.79 0.60 - 1.10 mg/dL [facility] CH Comment:Testing performed by : [facility] [place] [address] Glucose 117 70 - 199 mg/dL CERNER [...] was last revised 2022. Testing performed by: [facility] [place] [address] Calcium 9.9 8.5 - 10.3 mg/dL [facility] CH Comment:Testing performed by : [facility] [place] [address] Bilirubin, total 0.6 0.1 - 1.2 mg/dL [facility] CH Comment:Testing performed by : [facility] [address], [place] [address] Protein, pl 7.2 6.5 - 8.5 g/dL [facility] Comment:Testing performed by : [facility] [place] [address] Albumin 3.8 3.5 - 5.0 g/dL [facility] Comment:Testing performed by : [facility] [place] [address] Alk phos 106 40 - 130 Units/L [facility] Comment:Testing performed by : [facility] [address], [place] [address] ALT 25 7 - 45 Units/L [facility] Comment:Testing performed by : [facility] [place] [address] AST 26 10 - 45 Units/L [facility] CH Comment:Testing performed by : [facility], [address], [place] [address] Blood 08/31/2024 11:2 1 AM SPA ASSOCIATE 08/31/2024 11:21 AM SPA ASSOCIATE Benita Giraldo NP LAB BLOOD ORDERABLES Shasta l Result STACEY [address] [place] [address] * POCT rapid strep A (06/22/2024 3:38 PM SPA ASSOCIATE) [facility] Signature Rapid Strep A, POC Negative Negative Swab 06/22/2024 3:38 PM SPA ASSOCIATE us Emiliano Trinidad NP POINT OF CARE TEST ORDERABLES F inal Result * Dexa Axial Skeleton Bone Density 1 or 2 Site (01/08/2021 11:43 AM CDT) Anatomical Region Laterality Modality Body N/A Other 01/08/2021 8:03 PM CDT Narrative 01/08/2021 8:04 PM CDT EXAM DESCRIPTION: DEXA AXIAL SKELETON BONE DENSITY 1 OR MORE SITES REASON FOR STUDY: Post-menopausal female, screening for osteoporosis. 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 AB: Report ID: [id number] Reading Location: [id number] Procedure Note Reymundo Moss MD - 01/08/2021 EXAM DESCRIPTION: DEXA AXIAL SKELETON BONE DENSITY 1 OR MORE SITES REASON FOR STUDY: Post-menopausal female, screening for osteoporosis. 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 AB: AB Report ID: [id number] Reading Location: [place] [address] [facility] IMG DXA PROCEDURES Final Result from Last 3 Months or Most Recently Relevant to Health Maintenance Insurance [facility] Advance Directives For more information, please contact: [phone] * Full Code (Latest Code Status on [...] 10:13 AM 03/08/2018 2:58 AM Care Teams Supervisor Inspecting Relationship Specialty Start Date End Date Jennifer Holliday MD [address] [id number] PCP - General 10/30/16 Jennifer Holliday MD [address] [id number] PCP - Essence Attributed PCP 08/02/13 Jeramy Lester MD [address] [place], [place] [id number] Surgeon Cardiothoracic Surgery 03/16/19 Karen Melendez MD [address] [facility] [place] [address] Consulting Physician Rheumatology 05/22/19 Alysia Ty MD [address] [facility] [address] [place] [address] Consulting Physician Gastroenterology 05/22/19 Reymundo Johnston MD [address] [facility] [address] [place] [address] Referring Physician Gynecology 12/03/20 Soledad West MD [address] [facility] [address] [place] [address] Consulting Physician Dermatology 10/29/21 Dusty Luciano IV, AUD [address] [place] [address] Cargo Station Worker 10/29/21 Vasile Mcmanus MD [address] [place] [address] Surgeon Vascular Surgery 10/29/21 Kurtis Ochoa MD [address] [facility] [address] [place] [address] Referring Physician Orthopedic Surgery 07/06/22 Hermes Hernandez MD [address] [place] [address] Consulting Physician Neurology 08/06/22 Juan C Montelongo MD [address] [place] [address] Referring Physician Otolaryngology 10/26/23 Sergey Spence MD [address] [facility] [address] [place] [address] Referring Physician Gastroenterology 03/09/24 Juhi Connolly NP [address] [place] [address] [address] [place] [address] Neurology 04/10/24 Jailyn Downey, ATIYA [address] [place] [address] [address] [place] [address] Director Of Workforce Development 06/16/24
--- OUTSIDE RECORDS SUMMARY | 2024-09-16 13:13 | XMS_ITS | Continuity of Care Document ---
Author Organization [facility] Address [address] [place] [address] Phone Care Team Providers Care Community Relations Manager Name Role Phone Tamia ORTIZ MD, Prasad Unavailable Unavailab le Allergies, Adverse Reactions, Alerts Substance Reaction Status Criticality No Known Allergies Active No Inform ation Medications Medication Instructions Dosage Effective Dates (start - stop) Status Comments Zetia 10 mg tablet take 1 tablet by oral route every day 10 MG - Active prednisone 1 mg tablet take 1 tablet by oral route 4 times every day 1 MG - Active alendronate 70 mg tablet take 1 tablet by oral route every week in the morning, at least 30 min before first food, beverage, or medication of day 70 MG - Active nifedipine ER 60 mg tablet,extended release take 1 tablet by oral route every day 60 MG - Active ranitidine 150 mg tablet take 1 tablet by oral route 2 times every day - Active venlafaxine 75 mg tablet take 1 tablet by oral route 2 times every day with food 75 MG - Active omeprazole 40 mg capsule,delayed release take 1 capsule by oral route every day before a meal 40 MG - Active losartan 100 mg-hydrochlorothiazi de 12.5 mg tablet take 1 tablet by oral route every day 1.00 tablet - Active Procedures Procedure Date Office/outpatient Visit, Est Post-op Follow-up Visit Post-op Follow-up Visit Remove Cataract, Insert Lens Post-op Follow-up Visit No Charge Refraction Post-op Follow-up Visit Remove Cataract, Insert Lens Office/outpatient Visit, [facility] No Charge Refraction IOLMaster IOLMaster Advance Directives Directive Yes / No Effective Date File Name No Information Encounters Encounter Description Practice Location Reason(s) For Visit Diagnoses Date Provider Providers Copied on Encounter Office/outpa tient Visit, Est [facility], [address], [place], [place], [id number], tel:[phone] SEC Arjun GUADALUPE Professional 6 month IOL check (chief complaint) Pseudophakia 0- 5 Tamia Parham. [address], [place], [address], [place]. tel:[phone] Referring Provider: Sergio Langford OD, [facility] [address] [facility], [place], [address]. tel:[phone] [facility], [address], [place], [place], [address], [place] [phone] SEC Arjun GUADALUPE Professional No Information 5 Wankum Daquan. [address] [facility] [place], [address], [place]. tel:[phone] [facility], [address], [place], [place], [address], [place] [phone] SEC Arjun GUADALUPE Professional No Information 5 Wankum Daquan. [address] [facility] [address], [place], [place], [address], [place]. tel:[phone] [facility], [address], [place], [place], [address], [place] tel:[phone] SEC Arjun GUADALUPE Professional 2 WK PO PHACO OD (chief complaint) Follow-up examination after surgery 0 4 Tamia Parham. [address], [place], [address], [place]. tel:[phone] Referring Provider: Sergio Langford OD, [facility] [address] [place], [address]. tel:[phone] [facility], [address], [place], [place], [address], [place] tel:[phone] SEC Arjun GUADALUPE Professional F/u exam, postop (chief complaint) Follow-up examination after surgery 4 Earlene Butt. [address], [place], [place], [address], [place]. tel:[phone] Referring Provider: Sergio Langford OD, [facility] [address] [place], [address]. tel:[phone] [facility], [address], [place], [place], [address], [place] tel:[phone] Sh[facility] No Information 4 Tamia Parham. [address] [facility], [place], [address], [place]. tel:[phone] Referring Provider: Daquan Lanier, [address], [place], [address] . tel:[phone] [facility], [address], [place], [place], [address], [place] tel:[phone] SEC Arjun GUADALUPE Professional 2 WK PO PHACO OS (chief complaint) Follow-up examination after surgery 4 Earlene Butt. [address], [place], [place], [address], [place]. tel:[phone] Referring Provider: Sergio Langford OD, [facility] [address] [place], [address]. tel:[phone] [facility], [address], [place], [place], [address], [place] tel:[phone] SEC Arjun GUADALUPE Professional 1 DAY PO PHACO IOL OS (chief complaint) Follow-up examination after surgery 4 Tamia Parham. [address], [place], [place], [facility][note 3], [place]. tel:[phone] Referring Provider: Sergio Langford OD, [facility] [address] [place], [address]. tel:[phone] [facility], [address] [place] [address] [address], [place], [place], [address], [place] tel:[phone] [facility] No Information 4 Tamia Parham. [address], [place], [place], [facility][note 3], [place]. tel:[phone] Referring Provider: Sergio Langford OD, [facility] [address] [place], [address]. tel:[phone] Office/outpa tient Visit, [facility], [address] [place] [address] [address], [place], [place], [address], [place] tel:[phone] SEC Arjun GUADALUPE Professional Cataract Evaluation (chief complaint) Senile nuclear cataract May- 4 Tamia Parham. [address], [place], [address], [place]. tel:[phone] Referring Provider: Sergio Langford OD, [facility] [address] [place], [address]. tel:[phone] [facility], [address] [place] [address] [address], [place], [place], [address], [place] tel:[phone] SEC Dinora Read No Information 4 Earlene Butt. [address], [place], [place], [address], [place]. tel:[phone] Family History Family Member Type Diagnosis Age At Onset Problem (finding) Family history of diabetes mellitus type 2 Problem (finding) Family history of hyper tension Payers Payer name Insurance type Covered republican ID Randolph post(s) [employer] [id number] Social History Type Description Quantity Date Captured Comments Alcohol Use Details Unknown Caffeine Use Details Unknown Tobacco Use Status Smoking Status Former smoker Non-Smoking Tobacco Use Details : No Details Available : No Details Available Sex Female Chief Complaint And Reason For Visit From encounter dated '01/09/2015 10:15'. 6 month IOL check (chief complaint). Description: The 74 year old female presents for a 6 month IOLcheck in the right and left eye. Patient denies any changes with VA she states when watching TV sheocc sees starburts effects off of the lights. Patient sees Dr. Stevens for glasses and contacts. Patients seen Dr. Stevens in September, she wears a contact only in the right eye. Reason For Referral Reason For Referral No Information History Of Present Illness Encounter Date Complaint History Of Prese nt Illness 6 month IOL check The 74 year ol d female presents for a 6 month IOL check in the right and left eye. Patient denies any changes with VA she states when watching TV she occ sees starburts effects off of the lights. Patient sees Dr. Stevens for glasses and contacts. Patients seen Dr. Stevens in September, she wears a contact only in the right eye. 2 WK PO PHACO OD The 74 year old female presents for 2 WK PO PHACO OD. Patient Hx PC IOL OD 06/25/2014 and PC IOL OS 06/04/2014. Patient reports OD feels irritated. Patient using Pred and Poly QID OD. F/u exam, postop The 74 year old female presents for 1 day post op Phaco with IOL OD (2nd eye). Pt denies any problems. Pt wants to know when she can use eyeliner and harvey. Pt will begin Poly and Pred. 2 WK PO PHACO OS The 73 year old female presents for 2 WK PO PHACO OS (first eye). Patient reports OS is feeling good, just an occasional gritty sensation. Patient has been using Prednisolone and Polytrim QID up until today. Patient states she will be cutting the Pred to BID today and will stop the Polytrim. Patient states that OD is scheduled for next week. Patient reports that even though OS has been taken care of, glare from bright lights really affect OD vision at night. 1 DAY PO PHACO IOL OS The 73 yea r old female presents for 1 DAY PO PHACO IOL OS. Patient reports no pain, only mild FBS last night. Patient reports vision seems to be getting better. Patient has the Prednisolone and Polytrim to begin QID OS today. PO instructions discussed and given to patient along with her clear eye shield. Cataract Evaluation The 73 year old female presents for Cataract Evaluation. Patient reports for at least the last 6 months to 1 year her vision for distance and reading vision has been decreasing. Patient hasn't driven in the past year because of her blurred vision. Patient cannot drive at night because she cannot see the signs and bright lights blind her. Her reading vision has suffered but hasn't affected her life as much as her distance vision. Patient uses Visine gtts PRN. Functional Status Date Functional Assessmen t No Information Instructions Date Instruction Additional Infor paresh - Discussed diagnosi s in detail with pt. IOLs stable. Will continue to monitor. RTC in 1 year for a complete exam. Related to See list of assessments above - Return in 1 year for a complet e exam. Related to See list of assessments above - Return in 6 months Related to See list of assessments above - 2 week post op to s/p phaco with IOL OD. Healing well. Medication instillation and post op instructions reviewed. RTC in 6 months. Advised pt to see Dr. Langford for glasses in 1 week. Related to See list of assessments above - As scheduled Related to See l ist of assessments above - One day s/p phaco with IOL OD. IOL in good position. Medication instillation and post op instructions reviewed. Pt understands shield use. RTC as scheduled or sooner if problems. Related to See list of assessments above - keep appt for surg Related to Follow-up examination after surgery - finish dropssome c onfusion about iol. she thought would just need reading rx and no glasses for dv.explained to her and her and they are happy to go with dv ou Related to Follow-up examination after surgery - as scheduled for post op Relat ed to Follow-up examination after surgery - 1 day post op Phac o with PCIOL OS, discussed post op instructions and medication use. Return to clinic as scheduled Related to Follow-up examination after surgery - Cataracts diagnosi s discussed with pt in detail. Discussed all risks, benefits, procedure and recovery regarding cataract sx. Patient desires to have surgery, recommend phacoemulsification with intraocular lens. Discussed astigmatism and toric lens option. Pt elects standard lens. Pt prefers to take glasses off to read. Schedule CE OS first near vision. Educational materials provided:about today's exam. Related to See list of assessments above Assessments Type Assessment Date assessment Pseudophakia Patient Care Teams Name Effective Dates (start - stop) Status Members No Information
--- OUTSIDE RECORDS SUMMARY | 2024-09-16 13:13 | XMS_ITS | Encounter Summary ---
Author Organization [facility] Address [address] [place] [address] Phone Care Team Providers Care Litigation Associate Name Role Phone Jennifer Holliday MD Primary Care Provid er Jennifer Holliday MD Unavailable [phone] Gentry Zamora MD Unavailable Brien Sue MD Unavailable Zakiya Shaikh MD PhD Unavailable [phone] Jeramy Lester MD Unavailable Karen Melendez MD Unavailable Alysia Ty MD Unavailable [phone] Lucy Reyes RN Unavailable [phone] Reymundo Johnston MD Unavailable Natasha Holloway MA Unavailable [phone] Romie Mccord DO Unavailable Soledad West MD Unavailable [phone] ADELAIDE Luciano IV, C Joseph Unavailable [phone] Vasile Mcmanus MD Unavailable Lucy Reyes RN Unavailable Jerry Mahan MD Unavailable [phone] Lynn Edwards RN Unavailable [phone] Kurtis Ochoa MD Unavailable Eddie Munroe MD Unavailable Hermes Hernandez MD Unavailable Jessy Mckinney RN Unavailable Juan C Montelongo MD Unavailable Jono Boothe RN Unavailable [phone] Sergey Spence MD Unavailable + Juhi Connolly NP Unavailable [phone] Jailyn Downey RN Unavailable [phone] Encounter Details Date Type Department Care Team (Latest Contact Info) Description 01/16/2019 Orders Only [facility] Scanning, Provider Social History Tobacco Use Types Packs/Day Years Used Date Smoking Tobacco: Former Cigarettes 1 25 0 [birth year]/02/1957 - 08/02/1982 Smokeless Tobacco: Never Alcohol Use Standard Drinks/Week Comments Yes 0 (1 standard drink = 0.6 oz pur e alcohol) occasionally Comments No Sex and Gender Information Value Date Recorded Sex Assigned at Not on file Legal Sex Female 11:24 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 Gender Identity Female 02/03/2023 6:56 PM CDT Sexual Orientation Not on file documented as of this encounter Plan of Treatment Not on file documented as of this encounter Procedures Procedure Name Priority Date/Time Associated Diagnosis Comments SCAN - LABS 01/16/2019 documented in this encounter Results * SCAN - LABS (01/16/2019) us Provider Scanning Final Result documented in this encounter Visit Diagnoses Not on filedocumented in this encounter Additional Health Concerns Infection Onset Date Last Indicated Resolved Time COVID: Suspected 02/06/2022 02/06/2022 02/06/2022 4:09 PM CDT Exposure, COVID-19 Comment:Added automatically based on COVID19 lab answers indicating exposure risk 07/02/2022 07/02/2022 07/12/2022 3:05 AM Dusty ELLER COVID: Suspected 07/02/2022 07/02/2022 07/02/2022 12:42 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 documented as of this encounter Care Teams Litigation Associate Relationship Specialty Start Date End Date Jennifer Holliday MD [address] [facility] [address], [place] [id number] PCP - General 10/30/16 Jennifer Holliday MD [address] [facility] [address] [place] [id number] PCP - Essence Attributed PCP 08/02/13 [place] [address] [facility] [address] [place] [address] Food Safety Field Specialist Pulmonary Disease 03/25/18 02/03/23 Brien Sue MD [address] [place] [address] Medical Oncologist/Hematologi [facility] Oncology 03/25/18 07/05/22 Zakiya Shaikh MD PhD [address] [place] [address] Medical Oncologist/Hematologi Medical Oncology 02/22/19 02/03/23 Jeramy Lester MD [address] [place] [address] Surgeon Cardiothoracic Surgery 03/16/19 Karen Melendez MD [address] [place] [address] Consulting Physician Rheumatology 05/22/19 Alysia Ty MD [address] [place] [address] Consulting Physician Gastroenterology 05/22/19 Lucy Reyes, ATIYA [address] [facility] [address] [place] [address] Drum Maker 11/26/20 01/05/21 Reymundo Johnston MD [address] [facility] [place] [address] [place] [address] Referring Physician Gynecology 12/03/20 Natasha Holloway MA [address] [place] [address] [address] [place] [address] ACO Care Production Reproduction Manager 10/06/21 10/14/21 Romie Mccord DO [address] [place] [address] [address] [place] [address] Consulting Physician Urology 10/29/21 02/03/23 Soledad West MD [address] [facility] [address] [place] [address] Consulting Physician Dermatology 10/29/21 Dusty Luciano IV, AUD [address] [place] [address] Hydrometeorology Teacher 10/29/21 Vasile Mcmanus MD [address] [address] Surgeon Vascular Surgery 10/29/21 Lucy Reyes RN [address] [place] [address] [address] [place] [address] Drum Maker 02/10/22 03/10/22 [place] [address] [facility] [address] [place] [address] Surgeon Orthopedic Surgery 02/25/22 07/05/22 Lynn Edwards RN [address] [place] [address] [address] [place] [address] Drum Maker 06/18/22 07/15/22 Kurtis Ochoa MD [address] [facility] [address] [facility] [address] [place], [place] [id number] Referring Physician Orthopedic Surgery 07/06/22 Eddie Munroe MD [address] [facility] [address] [place] [address] Consulting Physician Neurosurgery 07/06/22 02/03/23 Hermes Hernandez MD [address] [place] [address] Consulting Physician Neurology 08/06/22 Jessy Mckinney RN [address] [place] [address] [address] [place] [address] Drum Maker 12/10/22 01/06/23 Juan C Montelongo MD [address] [place] [address] Referring Physician Otolaryngology 10/26/23 Jono Boohte RN [address] [place] [address] [address] [place] [address] Drum Maker 02/25/24 06/15/24 Sergey Spence MD [address] [facility] [address] [facility] [address] [place] [address] Referring Physician Gastroenterology 03/09/24 Juhi Connolly, EDILMA [address] [place] [address] [address] [place] [address] Neurology 04/10/24 Jailyn Downey, ATIYA [address] [place] [address] [address] [place] [address] Drum Maker 06/16/24 documented as of this encounter
--- OUTSIDE RECORDS SUMMARY | 2024-09-16 13:13 | XMS_ITS | Patient Health Summary ---
Author Organization [facility] Address [address] [place] [address] Care Team Providers Care Rn Pediatric Name Role Phone Jennifer Holliday MD Primary Care Provid er Note from [facility],non-owned Affiliates and Associated Physician Practices is amultiple site organization consisting of ambulatory clinics and hospital sitesin [place], [place], [place] and [place]. This disclosure is being madepursuant to the Care Everywhere program and may not contain all information available regarding this patient. Last updated 18.[facility] [address] [place] Allergies No known active allergies Medications * Be aware that medications may not be up to date on this document. Alwaysverify current medications with the patient. * ezetimibe (ZETIA) 10 MG tablet Take 10 mg by mouth once daily * NIFEdipine CR 24hr (ADALAT CC) 60 MG tablet Take 60 mg by mouth once daily Take on an empty stomach. * venlafaxine XR 24hr (EFFEXOR XR) 75 MG capsule Take 75 mg by mouth daily with breakfast * pantoprazole EC (PROTONIX) 40 MG tablet(Started 10/31/2015) 40 mg 2 times daily * eszopiclone (LUNESTA) 3 MG tablet Take 3 mg by mouth at bedtime * predniSONE (DELTASONE) 5 MG tablet(Started 04/02/2016) 3 mg once * Acetaminophen (TYLENOL) 325 MG CAPS Take 325 mg by mouth every 6 hours as needed * losartan (COZAAR) 100 MG tablet(Started 08/15/2016) Take 1 Tab by mouth once daily 1 refill remaining * dextromethorphan-guaiFENesin ER 12hr (MUCINEX DM) 30-600 MG tablet(Started 08/15/2016) Take 1 Tab by mouth 2 times daily * fluticasone propionate (FLONASE) 50 MCG/ACT nasal spray(Started 08/15/2016) [place] 2 Sprays into each nostril once daily * predniSONE (DELTASONE) 1 MG tablet(Started 08/03/2016) Active Problems Problem Noted Date Diagnosed Date Neck swelling 11/19/2020 HTN (hypertension) 08/13/2016 Social History Tobacco Use Types Packs/Day Years Used Date Smoking Tobacco: Former Alcohol Use Standard Drinks/Week Comments Yes 0 (1 standard drink = 0.6 oz pur e alcohol) occ Sex and Gender Information Value Date Recorded Sex Assigned at Not on file Gender Identity Not on file Sexual Orientation Not on file Last Filed Vital Signs Vital Sign Reading Time Taken Comments Blood Pressure 117/84 08/25/2016 11:55 AM CONCRETE ANALYST Pulse 99 08/25/2016 11:55 AM CONCRETE ANALYST Temperature 36.4 C (97.5 F) 08/15/2016 7:07 AM CONCRETE ANALYST Respiratory Rate 18 08/15/2016 7:07 AM CONCRETE ANALYST Oxygen Saturation 92% 08/15/2016 7:07 AM CONCRETE ANALYST Inhaled Oxygen Concentration - - Weight 70.3 kg (155 lb) 08/25/2016 11:55 AM CONCRETE ANALYST Height 164.5 cm (5' 4.75 ) 08/25/2016 11:[address] Body Mass Index 25.99 08/25/2016 11:55 AM CONCRETE ANALYST Medical Devices Implanted Type Area Manager Disaster Recovery Device Identifier Shelf Expiration Date Model / Serial / Lot Human Allograft Tissu Implanted:Qty : 1 on 01/06/2016 by Reymundo Shelley MD at [facility] [employer] [id number] / [id number] / Mesh Micro 6 X 8 Pc Implanted:Qty : 1 on 08/12/2016 by Reymundo Shelley MD at [facility] N/A: Abdomen [employer] 04/02/2017 [id number] / / [id number] Procedures * BASIC METABOLIC PANEL (CALCIUM TOTAL)(Performed 08/15/2016) * CBC W AUTO DIFFERENTIAL(Performed 08/15/2016) * XR CHEST 2VW(Performed 08/14/2016) Performed for Paraesophageal hernia * CBC W AUTO DIFFERENTIAL(Performed 08/14/2016) * BASIC METABOLIC PANEL (CALCIUM TOTAL)(Performed 08/14/2016) * FL FLUORO UPPER GI TRACT + KUB(Performed 08/13/2016) Performed for Paraesophageal hernia * CBC W AUTO DIFFERENTIAL(Performed 08/13/2016) * BASIC METABOLIC PANEL (CALCIUM TOTAL)(Performed 08/13/2016) * GLUCOSE - POINT OF CARE(Performed 08/12/2016) * LAPAROSCOPIC REPAIR PARAESOPHAGEAL/HIATAL HERNIA(Performed 08/12/2016) * EKG 12-LEAD(Performed 08/12/2016) Performed for Preop examination * HGB HCT PANEL(Performed 08/12/2016) Performed for Preop examination * BASIC METABOLIC PANEL (CALCIUM TOTAL)(Performed 08/12/2016) Performed for Preop examination * EGD(Performed 07/08/2016) * PATHOLOGY TISSUE EXAM (STL)(Performed 07/08/2016) Performed for Diagnosis unknown * ESOPHAGOGASTRODUODENOSCOPY (EGD) DIAGNOSTIC(Performed 07/08/2016) * FL FLUORO UPPER GI TRACT + KUB(Performed 06/30/2016) Performed for Dysphagia, unspecified type * APHERESIS/TRANSFUSION ORDER(Performed 01/09/2016) * CBC W AUTO DIFFERENTIAL(Performed 01/08/2016) * BASIC METABOLIC PANEL (CALCIUM TOTAL)(Performed 01/08/2016) * SLIDE SCAN HEMATOLOGY(Performed 01/07/2016) * CBC W AUTO DIFFERENTIAL(Performed 01/07/2016) * FL FLUORO UPPER GI TRACT + KUB(Performed 01/07/2016) Performed for Paraesophageal hernia * GLUCOSE - POINT OF CARE(Performed 01/07/2016) * SLIDE SCAN HEMATOLOGY(Performed 01/07/2016) * CBC W AUTO DIFFERENTIAL(Performed 01/07/2016) * BASIC METABOLIC PANEL (CALCIUM TOTAL)(Performed 01/07/2016) * GLUCOSE - POINT OF CARE(Performed 01/07/2016) * PATHOLOGY TISSUE EXAM (STL)(Performed 01/06/2016) Performed for Diagnosis unknown * LAPAROSCOPIC JADEN/TOUPET FUNDOPLICATION(Performed 01/06/2016) * BLOOD TYPE VERIFICATION(Performed 01/06/2016) * CROSSMATCH RBC LEUKOREDUCED(Performed 01/06/2016) * TYPE + SCREEN PANEL(Performed 01/06/2016) * CROSSMATCH RBC LEUKOREDUCED(Performed 01/06/2016) * HGB HCT PANEL(Performed 01/06/2016) * HGB HCT PANEL(Performed 01/02/2016) Performed for Anemia, unspecified type * COLONOSCOPY(Performed 12/26/2015) * HGB HCT PANEL(Performed 12/16/2015) Performed for Preop examination * BASIC METABOLIC PANEL (CALCIUM TOTAL)(Performed 12/16/2015) Performed for Preop examination * EKG 12-LEAD(Performed 12/16/2015) Performed for Preop examination * EGD(Performed 11/15/2015) * MOTILITY STUDY, ESOPHAGEAL(Performed 11/15/2015) Results * (ABNORMAL) CBC W AUTO DIFFERENTIAL (08/15/2016 4:55 AM CONCRETE ANALYST) Only the most recent of6 resultswithin the time period is included. WBC 11.8(H) 4.4 - 10.7 x10E9/L 08/15/2016 5:10 AM [facility] WBC Corrected x10E9/L 08/15/2016 5:10 AM [facility] RBC 3.85 3.80 - 5.20 x10E12/L 08/15/2016 5:10 AM [facility] Hemoglobin 11.9(L) 12.0 - 15.6 gm/dL 08/15/2016 5:10 AM [facility] Hematocrit 36.4 35.9 - 45.5 % 08/15/2016 5:10 AM [facility] MCV 94.5 80.7 - 98.3 fl 08/15/2016 5:10 AM [facility] MCH 30.9 26.7 - 34.0 pg 08/15/2016 5:10 AM [facility] MCHC 32.7 30.8 - 35.9 gm/dL 08/15/2016 5:10 AM [facility] Platelet Count 312 153 - 416 x10E9/L 08/15/2016 5:10 AM [facility] RDW-CV 12.3 12.1 - 14.9 % 08/15/2016 5:10 AM [facility] MPV 10.4 9.4 - 12.9 fl 08/15/2016 5:10 AM [facility] Neutrophils % 71.4 44.0 - 73.0 % 08/15/2016 5:10 AM [facility] Lymphocytes % 14.8(L) 20.0 - 43.0 % 08/15/2016 5:10 AM [facility] Monocytes % 8.8 5.0 - 13.0 % 08/15/2016 5:10 AM [facility] Eosinophils % 4.1 0.0 - 6.0 % 08/15/2016 5:10 AM [facility] Basophils % 0.5 0.0 - 2.0 % 08/15/2016 5:10 AM [facility] Immature Granulocytes 0.4 0 - 1 % 08/15/2016 5:10 AM [facility] Neutrophil Absolute 8.40(H) 2.01 - 7.14 x10E9/L 08/15/2016 5:10 AM [facility] Lymphocytes Absolute 1.74 1.07 - 3.94 x10E9/L 08/15/2016 5:10 AM [facility] Monocytes Absolute 1.04 0.26 - 1.07 x10E9/L 08/15/2016 5:10 AM [facility] Eosinophils Absolute 0.48(H) 0 - 0.47 x10E9/L 08/15/2016 5:10 AM [facility] Basophils Absolute 0.06 0 - 0.08 x10E9/L 08/15/2016 5:10 AM [facility] Immature Granulocytes Absolute 0.05 0.00 - 0.06 x10E9/L 08/15/2016 5:10 AM [facility] nRBC Auto 0 /100 WBC 08/15/2016 5:10 AM [facility] Blood BLOOD SPECIMEN / Unknown 08/15/2016 4:55 AM CONCRETE ANALYST 08/15/2016 5:[address] [facility] Gloria Rai MD LAB - HEMATOLOGY ORD ERABLES [facility] [address] [place] [address] * (ABNORMAL) BASIC METABOLIC PANEL (CALCIUM TOTAL) (08/15/2016 4:[address] [facility]) Only the most recent of7 resultswithin the time period is included. Glucose 88 74 - 106 mg/dL 08/15/2016 5:31 AM [facility] Sodium 132(L) 136 - 145 mmol/L 08/15/2016 5:31 AM [facility] Potassium 3.6 3.5 - 5.1 mmol/L 08/15/2016 5:31 AM [facility] Chloride 95(L) 98 - 107 mmol/L 08/15/2016 5:31 AM [facility] CO2 28 22 - 31 mmol/L 08/15/2016 5:31 AM [facility] Calcium 9.2 8.5 - 10.1 mg/dL 08/15/2016 5:31 AM [facility] Anion Gap 9 8 - 16 mmol/L 08/15/2016 5:31 AM [facility] BUN 15 7 - 21 mg/dL 08/15/2016 5:31 AM [facility] Creatinine 1.10 0.50 - 1.30 mg/dL 08/15/2016 5:31 AM [facility] eGFR by MDRD 48 mL/min/1.7 3m2 08/15/2016 5:31 AM [facility] eGFR by MDRD 59 mL/min/1.7 3m2 08/15/2016 5:31 AM [facility] Blood BLOOD SPECIMEN / Unknown 08/15/2016 4:55 AM CONCRETE ANALYST 08/15/2016 5:[address] [facility] Gloria Rai MD LAB - CHEMISTRY JOSH BARNES [facility] Organization Address City/State/ZIP Co de Phone Number [facility] [address] [place] [id number] * XR CHEST PA AND LATERAL (08/14/2016 8:08 AM CONCRETE ANALYST) Anatomical Region Laterality Modality Chest Radiographic Katrin ging 08/14/2016 8:09 AM CONCRETE ANALYST Impressions 08/14/2016 8:14 AM CONCRETE ANALYST Atelectasis or infiltrate is present at the lung bases, left greater than right. This examination was transcribed using the Augur voice recognition system without human tank calibrator. In an effort to expedite patient care, this report has not been adjusted for typographical, grammatical, and syntax by a trained medical receptionist medical assistant. Narrative 08/14/2016 8:14 AM CONCRETE ANALYST PA AND LATERAL CHEST INDICATION: Short of breath, abdominal pain. Postop day 2 hiatal hernia repair FINDINGS: PA and lateral views of the chest show atelectasis or infiltrate at the lung bases bilaterally, left greater than right. The cardiac and mediastinal silhouettes and pulmonary vascularity are within normal limits. Free intraperitoneal air is present consistent with known history of recent abdominal surgery.Cardiac size is within normal limits. Subcutaneous emphysema is present. Procedure Note Rut Pepper MD - 08/14/2016 PA AND LATERAL CHEST INDICATION: Short of breath, abdominal pain. Postop day 2 hiatal hernia repair FINDINGS: PA and lateral views of the chest show atelectasis or infiltrate at the lung bases bilaterally, left greater than right. The cardiac and mediastinal silhouettes and pulmonary vascularity are within normal limits. Free intraperitoneal air is present consistent with known history of recent abdominal surgery.Cardiac size is within normal limits. Subcutaneous emphysema is present. IMPRESSION Atelectasis or infiltrate is present at the lung bases, left greater than right. This examination was transcribed using the Augur voice recognition system without human tank calibrator. In an effort to expedite patient care, this report has not been adjusted for typographical, grammatical, and syntax by a trained medical receptionist medical assistant. Roberta Valdovinos Amy FIRE HYDRANT MECHANIC-SOCIAL SERVICE DIRECTOR DIAGNOSTI C IMAGING ORDERABLES * FL FLUORO UPPER GI TRACT + KUB (08/13/2016 9:39 AM CONCRETE ANALYST) Only the most recent of3 resultswithin the time period is included. Anatomical Region Laterality Modality Abdomen Radiographic Katrin ging 08/13/2016 12:5 6 PM CONCRETE ANALYST Impressions 08/13/2016 1:32 PM CONCRETE ANALYST No evidence of leak or recurrent hiatal hernia. Narrative 08/13/2016 1:32 PM CONCRETE ANALYST Fluoroscopic upper GI with KUB Indication: Abdominal pain, status post hiatal hernia repair yesterday, postoperative leak. Findings: Multiple fluoroscopic images of the upper GI tract were obtained following ingestion of water-soluble oral contrast media. There is no evidence of leak. There is no evidence of recurrent hiatal hernia. There is prompt emptying from the stomach into the duodenum. Free intraperitoneal air is noted compatible with sequela from yesterday's fluoroscopic surgery. The total fluoroscopy time was 1.4 minutes. 2 fluoroscopic images were obtained. Cineradiography was also performed. Procedure Note Robert Parnell MD - 08/13/2016 Fluoroscopic upper GI with KUB Indication: Abdominal pain, status post hiatal hernia repair yesterday, postoperative leak. Findings: Multiple fluoroscopic images of the upper GI tract were obtained following ingestion of water-soluble oral contrast media. There is no evidence of leak. There is no evidence of recurrent hiatal hernia. There is prompt emptying from the stomach into the duodenum. Free intraperitoneal air is noted compatible with sequela from yesterday's fluoroscopic surgery. The total fluoroscopy time was 1.4 minutes. 2 fluoroscopic images were obtained. Cineradiography was also performed. IMPRESSION No evidence of leak or recurrent hiatal hernia. Reymundo Shelley MD FLUOROSCOPY ORDERABL ES * (ABNORMAL) GLUCOSE - POINT OF CARE (08/12/2016 6:01 PM CONCRETE ANALYST) Only the most recent of3 resultswithin the time period is included. Pathologist [facility] Glucose WB/POC 176(H) 70 - 106 mg/dL 08/13/2016 7:40 AM CONCRETE ANALYST [facility] Blood BLOOD SPECIMEN / Unknown 08/12/2016 6:01 PM CONCRETE ANALYST 08/13/2016 7:40 AM CONCRETE ANALYST Reymundo Shelley MD LAB - POINT OF CARE ORDERABLES [facility] [address] [place] [address] * EKG 12-LEAD (08/12/2016 10:31 AM CONCRETE ANALYST) Only the most recent of2 resultswithin the time period is included. Pathologist [facility] Ventricular Rate 79 BPM [facility] Atrial Rate 79 BPM [facility] P-R Interval 146 ms [facility] QRS Duration ms 94 ms [facility] Q-T Interval ms 388 ms [facility] QTC Calculation (Bezet) 444 ms [facility] Calculated P Andes 54 degrees [facility] Calculated R Andes -7 degrees [facility] Calculated T Andes 30 degrees [facility] Interpretation EKG Normal sinus rhythm Incomplete right bundle branch block Minimal voltage criteria for LVH, may be normal variant Borderline ECG When compared with ECG of 16-DEC-2015 11:18, No significant change was found Confirmed by POLA HEATON MD ([id number]) on 08/12/2016 12:52:51 PM [facility] 08/12/2016 10:3 1 AM CONCRETE ANALYST 08/12/2016 12:52 PM CONCRETE ANALYST Laura Burdick DO ECG ORDERABLES Performing Organization Address City/[facility] Co de Phone Number [facility] * HGB HCT PANEL (08/12/2016 10:10 AM CONCRETE ANALYST) Only the most recent of4 resultswithin the time period is included. Hemoglobin 13.4 12.0 - 15.6 gm/dL 08/12/2016 10:40 AM CONCRETE ANALYST [facility] Hematocrit 40.9 35.9 - 45.5 % 08/12/2016 10:40 AM [facility] Blood BLOOD SPECIMEN / Unknown 08/12/2016 10:10 AM CONCRETE ANALYST 08/12/2016 10:34 AM CONCRETE ANALYST Laura Burdick DO LAB - HEMATOLOGY ORD ERABLES Performing Organization Address City/[facility] Co de Phone Number [facility] [address] [place] [address] * EGD (07/08/2016 8:46 AM CONCRETE ANALYST) Narrative [facility] - 07/08/2016 8:46 AM CONCRETE ANALYST Reymundo Shelley MD 07/08/2016 8:46 AM [facility] Operative Report OPERATIVE REPORT PATIENT:Malini Joe MR#: ADMIT DATE: 07/08/2016 6:55 AM [facility]#: DATE OF SURGERY: 07/08/2016 : 1940 PHYSICIAN: Reymundo Shelley MD 76 yrs Body mass index is 26.79 kg/(m^2). PREOPERATIVE DIAGNOSES: dysphagia POSTOPERATIVE DIAGNOSES: SAME Slipped fundoplication Recurrent hiatal hernia Surgeon: Reymundo Shelley MD CANAL EQUIPMENT MAINTENANCE SUPERVISOR: none PROCEDURES PERFORMED: Esophagogastroduodenoscopy w/ biopsy of GE junction ANESTHESIA: MAC by anesthesia department PROCEDURE: The patient was brought to the GI suite and placed in standard position. MAC anesthesia was administered. The gastroscope was inserted into the oral pharynx and passed through the upper esophagus then advanced to the GE junction and into the stomach pouch. The Z line was identified. There was a recurrent hiatal hernia present and the partial fundoplication appeared to be slipped down on the stomach. The scope was further advanced through the pylorus into the second portion of the duodenum. The scope was then brought back into the stomach where it was retroflexed. All mucosal surfaces were inspected identifying small polyps but not removed. No evidence of gastritis was present. The scope was then brought back to the level of the GE junction.The GE junction also was examined. There was moderate evidence of inflammatory changes. Biopsies were taken of GE junction. The gastroscope was withdrawn examining the esophagus on removal of scope. No esophageal abnormalities were identified. The patient tolerated the procedure well and was taken to recovery room in stable condition. COMPLICATIONS: None. Plan: schedule for laparoscopic repair recurrent hiatal hernia with mesh possible fundoplication Reymundo Shelley MD Reymundo Shelley MD GI PROCEDURE ORDERAB LES [facility] [place] [address] * GROSS + MICRO EXAM (STL) (07/08/2016 8:32 AM CONCRETE ANALYST) Only the most recent of2 resultswithin the time period is included. Case Report Surgical Pathology Report Case: [id number] Authorizing Provider: Reymundo Shelley MD Collected: 07/08/2016 08:32 AM Ordering Location: [facility] Received: 07/08/2016 09:29 AM Pathologist: Mukul Santana MD Specimen: EG Junction Biopsy , g-E junction 07/09/2016 3:40 PM CONCRETE ANALYST [facility] Final Diagnosis 1. Esophagus, biopsy: -- Esophagitis, acute and chronic, severe with ulceration JW/armand 07/09/2016 3:40 PM CONCRETE ANALYST [facility] Gross Description Received in formalin in a container labeled Malini Joe, esophageal biopsy. The container holds three harvey tissue fragments measuring 0.1 cm up to 0.6 cm. The specimen is entirely submitted in cassette labeled A1. FELIZ/neda 07/09/2016 3:40 PM [facility] Microscopic Description Section of the esophageal biopsy shows squamous epithelium and gastric-type of mucosa. Squamous epithelium displays normal maturation. No dysplasia or malignancy is seen. Focally, acute and chronic inflammation with ulceration is present. Intestinal metaplasia is not seen. Alcian blue/PAS stain is negative. CHRYSTAL/armand 07/09/2016 3:40 PM [facility] Disclaimer All histochemical and/or immunohistochemical results are interpreted with controls that demonstrate appropriate staining reactions before reporting results. Note on use of immunocytochemistry reagents: This test was developed and its performance characteristic determined by [facility], Department of Laboratory Medicine. It has not been cleared or approved by the U.S. Food and Drug Administration (FDA). The FDA has determined that such clearance or approval is not necessary. The test is used for clinical purpose. It should not be regarded as investigational or for research. This laboratory is certified to perform high complexity testing. 07/09/2016 3:40 PM [facility] Embedded Images 07/09/2016 3:40 PM [facility] Pathology/Cytolo gy BIOPSY SPECIMEN / Unknown 07/08/2016 8:32 AM CONCRETE ANALYST 07/08/2016 9:29 AM CONCRETE ANALYST Reymundo Shelley MD LAB - PATHOLOGY/CYTO LOGY ORDERABLES Performing Organization Address [facility]/State/[facility] Co de Phone Number [facility] [address] [place] [address] * APHERESIS/TRANSFUSION ORDER (01/09/2016 7:00 PM CDT) Narrative 01/09/2016 7:00 PM CDT Ordered by an unspecified provider. Scanned Document NURSING - VITAL SIGN S AND ASSESSMENT * (ABNORMAL) SLIDE SCAN HEMATOLOGY (01/07/2016 12:40 PM CDT) Only the most recent of2 resultswithin the time period is included. Platelet Estimation Adequate platelets Normal, Adequate platelets 01/07/2016 1:13 PM CDT [facility] Microcytosis 2+(A) None 01/07/2016 1:13 PM CDT [facility] Poikilocytosis 1+(A) None 01/07/2016 1:13 PM CDT [facility] Blood BLOOD SPECIMEN / Unknown 01/07/2016 12:40 PM CDT 01/07/2016 12:45 PM CDT Roberta Reyes FIRE HYDRANT MECHANIC-SOCIAL SERVICE DIRECTOR LAB - HEM ATOLOGY ORDERABLES Performing Organization Address City/[facility]/ZIP Co de Phone Number [facility] [address] [place] [address] * BLOOD TYPE VERIFICATION (01/06/2016 6:58 AM CDT) Francine Ervin ABO O 01/06/2016 8:21 AM CDT [facility] Rh Type Negative 01/06/2016 8:21 AM CDT [facility] Miscellaneous samples (specimen) BLOOD SPECIMEN / Unknown 01/06/2016 6:58 AM CDT 01/06/2016 7:04 AM CDT Reymundo Shelley MD LAB - BLOOD BANK ORD ERABLES Performing Organization Address [facility] Co de Phone Number [facility] [id number] [place] [address] * CROSSMATCH RBC (01/06/2016 6:25 AM CDT) Only the most recent of2 resultswithin the time period is included. Pathologist [facility] Unit Donor # [id number] [id number] 01/09/2016 7:19 AM CDT [facility] Product Code E0336 01/09/2016 7:19 AM CDT [facility] Unit Description E0336 RBC, LR, CPD>AS1 01/09/2016 7:19 AM CDT [facility] ABO Donor Type O 01/09/2016 7:19 AM CDT [facility] Rh Type Unit NEG 01/09/2016 7:19 AM CDT [facility] Unit Status Returned 01/09/2016 7:19 AM CDT [facility] Miscellaneous samples (specimen) BLOOD SPECIMEN / Unknown 01/06/2016 6:25 AM CDT 01/06/2016 8:34 AM CDT Reymundo Shelley MD LAB - BLOOD BANK ORD SALENAMARCY Performing Organization Address [facility] Co de Phone Number [facility] [address] * TYPE + SCREEN PANEL (01/06/2016 6:25 AM CDT) ABO O 01/06/2016 8:19 AM CDT [facility] Rh Type Negative 01/06/2016 8:19 AM CDT [facility] Comment:History check perfor med. Retype required. Antibody Screen Negative 01/06/2016 8:19 AM CDT [facility] Miscellaneous samples (specimen) BLOOD SPECIMEN / Unknown 01/06/2016 6:25 AM CDT 01/06/2016 6:35 AM CDT Reymundo Shelley MD LAB - BLOOD BANK PUNEET MORRIS Performing Organization Address [facility] de Phone Number [facility] [address] * COLONOSCOPY (12/26/2015) Reymundo Shelley MD GENERIC SURGICAL HIS TORY * MOTILITY STUDY, ESOPHAGEAL (11/15/2015) Reymundo Shelley MD GI PROCEDURE ORDERAB LES * EGD (11/15/2015) Reymundo Shelley MD GI PROCEDURE ORDERAB LES Care Teams Rn Pediatric Relationship Specialty Start Date End Date Jennifer Holliday MD PCP - General Internal Medicine 10/10/15
--- OUTSIDE RECORDS SUMMARY | 2024-09-16 13:13 | XMS_ITS | Referral Summary ---
Author Organization [facility] [employer] Address [address] [place] [address] Care Team Providers Care Operations Planner Name Role Phone Jennifer Holliday MD Primary Care Provid er Source Comments [facility] [employer],non-owned Affiliates and Associated Physician Practices is amultiple site organization consisting of ambulatory clinics and hospital sitesin [place], [place], [place] and [place]. This disclosure is being madepursuant to the Care Everywhere program and may not contain all information available regarding this patient. Last updated 18.[employer] Allergies No known active allergies Medications * Be aware that medications may not be up to date on this document. Alwaysverify current medications with the patient. Medication Sig Dispensed Refills Start Date End Date Status ezetimibe (ZETIA) 10 MG tablet Take 10 mg by mouth once daily Active NIFEdipine CR 24hr (ADALAT CC) 60 MG tablet Take 60 mg by mouth once daily Take on an empty stomach. Active venlafaxine XR 24hr (EFFEXOR XR) 75 MG capsule Take 75 mg by mouth daily with breakfast Active pantoprazole EC (PROTONIX) 40 MG tablet 40 mg 2 times daily 10/31/2015 Activ e eszopiclone (LUNESTA) 3 MG tablet Take 3 mg by mouth at bedtime Active predniSONE (DELTASONE) 5 MG tablet 3 mg once 04/02/2016 Active Acetaminophen (TYLENOL) 325 MG CAPS Take 325 mg by mouth every 6 hours as needed Active losartan (COZAAR) 100 MG tablet Take 1 Tab by mouth once daily 30 Tab 1 08/15/2016 Active dextromethorphan-gu aiFENesin ER 12hr (MUCINEX DM) 30-600 MG tablet Take 1 Tab by mouth 2 times daily 30 Tab 08/15/2016 Active Additional Information Patient not taking.Reported on 08/25/2016 fluticasone propionate (FLONASE) 50 MCG/ACT nasal spray [place] 2 Sprays into each nostril once daily 1 Bottle 08/15/2016 Active predniSONE (DELTASONE) 1 MG tablet 08/03/2016 Active Active Problems Problem Noted Date Diagnosed Date [...] Comments Blood Pressure 117/84 08/25/2016 11:55 AM MORTGAGE BRANCH MANAGER Pulse 99 08/25/2016 11:55 AM MORTGAGE BRANCH MANAGER Temperature 36.4 C (97.5 F) 08/15/2016 7:07 AM MORTGAGE BRANCH MANAGER Respiratory Rate 18 08/15/2016 7:07 AM MORTGAGE BRANCH MANAGER Oxygen Saturation 92% 08/15/2016 7:07 AM MORTGAGE BRANCH MANAGER Inhaled Oxygen Concentration - - Weight 70.3 kg (155 lb) 08/25/2016 11:55 AM MORTGAGE BRANCH MANAGER Height 164.5 cm (5' 4.75 ) 08/25/2016 11:[address] Body Mass Index 25.99 08/25/2016 11:55 AM MORTGAGE BRANCH MANAGER Functional Status Functional Status Response Date of Assess ment Is person deaf or have serious hearing difficult y? Yes 08/13/2016 Is person blind or have serious difficulty seein g? No 08/13/2016 Does person have serious dif ficulty walking/climbing stairs? No 08/13/2016 Does person have difficulty dressing/bathing? No 08/13/2016 Does person have difficulty doing errands alone? No 08/13/2016 Cognitive Status Response Date of Assessm ent Does person have difficulty concentrating/remembering/making decisions? No 08/13/2016 Plan of Treatment Not on file Medical Devices Implanted Type Area Radio Tester Device Identifier Shelf Expiration Date Model / Serial / Lot Human Allograft Tissu Implanted:Qty : 1 on 01/06/2016 by Reymundo Shelley MD at [facility] [employer] [id number] / [id number] / Mesh Micro 6 X 8 Pc Implanted:Qty : 1 on 08/12/2016 by Reymundo Shelley MD at [facility] N/A: Abdomen [employer] 04/02/2017 [id number] / / [id number] Advance Directives * Full Code (Latest Code Status on File) Date Activated Date Inactivated Comments 08/12/2016 7:42 PM 08/15/2016 5:02 PM * Full Code Date Activated Date Inactivated Comments 01/06/2016 1:29 PM 01/08/2016 12:30 PM Care Teams Operations Planner Relationship Specialty Start Date End Date Jennifer Holliday MD PCP - General Internal Medicine 10/10/15
--- OUTSIDE RECORDS SUMMARY | 2024-09-16 13:13 | XMS_ITS | Continuity of Care Document ---
Author Organization [facility] Address [address] [place] [address] Phone Care Team Providers Care Oceanographer Physical Name Role Phone Roberta Valenzuela Unavailable Unavailab le Allergies, Adverse Reactions, Alerts Substance Reaction Status Criticality No Known Allergies Active No Inform ation Medications Medication Instructions Dosage Effective Dates (start - stop) Status Comments FAMOTIDINE 20 MG TABLET TAKE 1 TABLET BY MOUTH TWICE A DAY NEEDED - Active PANTOPRAZOLE SOD DR 40 MG TAB TAKE 1 TABLET BY MOUTH TWICE A DAY - Active DICYCLOMINE 10 MG CAPSULE TAKE 1 CAPSULE BY MOUTH 1 - 2 TIMES EVERY DAY NEEDED - Active prednisone 5 mg tablet take 2 tablet by oral route every day 10 MG - Active cyclobenzaprine 10 mg tablet take 1 tablet by oral route 2 times every day 10 MG - Active levothyroxine 50 mcg tablet take 1 tablet by oral route every day 50 MCG - Active folic acid 1 mg tablet take 1 tablet by oral route every day 1 MG - Active duloxetine 60 mg capsule,delayed release take 1 capsule by oral route every day 60 MG - Active Vitamin B-12 1,000 mcg tablet take 1 tablet by oral route every day 1 tablet - Active vitamin E 400 unit capsule take 1 capsule by oral route every day 1 capsule - Active ferrous sulfate 325 mg (65 mg iron) tablet take 1 tablet by oral route every day 1 tablet - Active amlodipine 5 mg tablet take 1 tablet by oral route every day 5 MG - Active atorvastatin 10 mg tablet take 1 tablet by oral route every day 10 MG - Active rivastigmine 4.6 mg/24 hour transdermal patch apply 1 patch by transdermal route every day . Do not apply to same area more than once every 14 days. 4.6 MG - Active carvedilol 3.125 mg tablet take 1 tablet by oral route 2 times every day with food 3.125 MG - Active Rexulti 0.5 mg tablet take 1 tablet by oral route every day 0.5 MG - Active amiodarone 200 mg tablet take 1 tablet by oral route every day 200 MG - Active gabapentin 300 mg capsule take 1 capsule by oral route 2 times every day 300 MG - Active ezetimibe 10 mg tablet take 1 tablet by oral route every day 10 MG - Active losartan 100 mg-hydrochlorothiazid e 12.5 mg tablet take 1 tablet by oral route every day 1.00 tablet - Active FAMOTIDINE 20 MG TABLET TAKE 1 TABLET BY MOUTH TWICE A DAY NEEDED - No Longer Active Procedures Procedure Date OFFICE [id number] OFFICE [id number] BODY MASS INDEX DOCD SYST BP >= 140 MM HG6 IT DIAST BP >= 90 MM HG OFFICE [id number] BODY MASS INDEX DOCD SYST BP GE 130 - 139MM HG DIAST BP >= 90 MM HG OFFICE [id number] BODY MASS INDEX DOCD SYST BP >= 140 MM HG6 IT DIAST BP >= 90 MM HG OFFICE [id number] BODY MASS INDEX DOCD SYST BP >= 140 MM HG6 IT DIAST BP >= 90 MM HG TISSUE EXAM BY PATHOLOGIST SPECIAL STAINS UPPER GI ENDOSCOPY BIOPSY DILATE ESOPHAGUS UNGUIDED OFFICE [id number] BODY MASS INDEX DOCD SYST BP >= 140 MM HG6 IT DIAST BP 80-89 MM HG FERRITIN LEVEL HEMATOCRIT (HCT) HEMOGLOBIN (HGB) TIBC, & % SATURATION IRON (FE), TOTAL ROUTINE VENIPUNCTURE OFFICE [id number] BODY MASS INDEX DOCD SYST BP >= 140 MM HG6 IT DIAST BP < 80 MM HG INJ, IRON SUCROSE, 1MG INFUSION SALINE SOLN 250CC IV INFUSION FOR THERAPY, PROPHYLAXIS OR DIAGNOSIS, UP TO 1 HOUR INJ, IRON SUCROSE, 1MG INFUSION SALINE SOLN 250CC IV INFUSION FOR THERAPY, PROPHYLAXIS OR DIAGNOSIS, UP TO 1 HOUR UPPER GI ENDOSCOPY,ELECTROCOAGULATION INJ, IRON SUCROSE, 1MG INFUSION SALINE SOLN 250CC IV INFUSION FOR THERAPY, PROPHYLAXIS OR DIAGNOSIS, UP TO 1 HOUR Advance Directives Directive Yes / No Effective Date File Name No Information Encounters Encounter Description Practice Location Reason(s) For Visit Diagnoses Date Provider Providers Copied on Encounter [facility], [address], [place], [place], [address] , tel: [phone] [facility] No Information 4 Terrence Granados. [address], [place], [address] , [place]. tel: [phone] OFFICE [id number] PANDED [facility], [address], [place], [place], [address] , tel: [phone] [facility] Follow up (chief complaint) Anemia, unspecifiedGastro esophageal reflux disease, esophagitis presence not specifiedIncontin ence of feces, unspecified fecal incontinence type 4 Terrence Granados. [address], [place], [address] , [place]. tel: [phone] Referring Provider: Jennifer Holliday, [address] [facility] [address], [place], [address] . tel:[phone] [facility], [address], [place], [place], [address] , [place] tel: [phone] [facility] No Information 4 Terrence Granados. [address], [place], [id number] , [place]. tel: [phone] [facility], [address], [place], [place], [address] , [place] tel: [phone] [facility] No Information 4 Terrence Granados. [address], [place], [address] , [place]. tel: [phone] [facility], [address], [place], [place], [address] , [place] tel: [phone] [facility] No Information 4 Terrence Granados. [address], [place], [address] , [place]. tel: [phone] OFFICE PXMEJ-KUD-DZ [facility], [address], [place], [place], [address] , [place] tel: [phone] [facility] annual (chief complaint) Incontinence of feces, unspecified fecal incontinence typeGastroesophag eal reflux disease, esophagitis presence not specifiedAnemia, unspecified 4 Terrence Granados. [address], [place], [address] , [place]. tel: [phone] Referring Provider: [address] [facility] [address], [place], [address] . tel:[phone] OFFICE TXEEX-ZIE-IN [facility], [address], [place], [place], [address] , tel: [phone] [facility] 6 month follow up (chief complaint) Gastroesophageal reflux disease, esophagitis presence not specifiedIncontin ence of feces, unspecified fecal incontinence type Sep-2 8-202 3 Terrence Granados. [address], [place], [address] , [place]. tel: [phone] Referring Provider: [address] [facility] [address], [place], [address] . tel:[phone] OFFICE CLRHN-JCG-XF [facility], [address], [place], [place], [address] , [place] tel: [phone] [facility] Follow up (chief complaint)A brooke reflux (chief complaint) Gastroesophageal reflux disease, esophagitis presence not specifiedRegurgit ation of foodIncontinence of feces, unspecified fecal incontinence type 3 Terrence Granados. [address], [place], [address] , [place]. tel: [phone] Referring Provider: Roberta Ocampo, [address] [place] [address], [address] . tel:[phone] OFFICE ZQIUE-XZS-OF [facility], [address], [place], [place], [address] , [place] tel: [phone] [facility] Medication refill (chief complaint) Incontinence of feces, unspecified fecal incontinence typeGastroesophag eal reflux disease, esophagitis presence not specifiedRegurgit ation of food 2 Terrence Granados. [address] [place] [address], [id number] , [place]. tel: [phone] Referring Provider: Jennifer Holliday, [address] [facility] [address], [place], [address] . tel:[phone] [facility], [address], [place], [place], [address] , [place] tel: [phone] [facility] No Information 0 Karson Hatfield. [address] [place] [address], [id number] , [place]. tel: [phone] Referring Provider: Tonio Holliday, [address] [place] [address], [place], [address] . tel:[phone] [facility], [address], [place], [place], [address] , tel: [phone] [facility] No Information 0 Bialecki Eldad. [address] [place], [place], [address] , . tel: [phone] Referring Provider: [address] [facility] [address], [place], [address] . tel:[phone] OFFICE GYRFR-FYT-ST TAILED [facility], [address], [place], [place], [address] , tel: [phone] [facility] Dysphagia (chief complaint) Incontinence of feces, unspecified fecal incontinence typeAnemia, unspecified 0 Bialecki Eldad. [address] [place] [address], [id number] , . tel: [phone] Referring Provider: [address] [facility] [address], [place], [address] . tel:[phone] OFFICE FJEFL-VNG-SD PAND [facility], [address], [place], [place], [address] , tel: [phone] [facility] 3 month follow up (chief complaint) Incontinence of feces, unspecified fecal incontinence typeAnemia, unspecified 9 Terrence Granados. [address] [place] [address], [id number] , . tel: [phone] Referring Provider: [address] [facility] [address], [place], [address] . tel:[phone] [facility], [address], [place], [place], [address] , tel: [phone] [facility] Anemia (chief complaint) Weakness of both upper extremitiesDiarrh ea, unspecified typeAnemia, unspecified 9 Bialecki Eldad. [address] [place] [address], [id number] , [place]. tel: [phone] Referring Provider: Alysia Miles, [address] [place] [address], [place], [address] . tel:[phone] [facility], [address], [place], [place], [address] , [place] tel: [phone] [facility] Anemia (chief complaint) Anemia, unspecified 9 Bialecki Eldad. [address] [place] [address], [id number] , [place]. tel: [phone] Referring Provider: Alysia Miles, [address] [place] [address], [place], [address] . tel:[phone] [facility], [address], [place], [place], [address] , [place] tel: [phone] [facility] No Information 9 Bialecki Eldad. [address] [place] [address], [id number] , [place]. tel: [phone] [facility], [address], [place], [place], [address] , [place] tel: [phone] [facility] No Information 9 Bialecki Eldad. [address] [place] [address], [id number] , [place]. tel: [phone] Referring Provider: Jennifer Holliday, [address] [place] [address] [facility] [address], [place], [address] . tel:[phone] [facility], [address], [place], [place], [address] , [place] tel: [phone] [facility] Anemia (chief complaint) Anemia, unspecified 9 Bialecki Eldad. [address] [place] [address], [id number] , [place]. tel: [phone] Referring Provider: Alysia Miles, [address] [place], [address] . tel:[phone] [facility], [address], [place], [place], [address] , [place] tel: [phone] [facility] Anemia, unspecified type 9 Terrence Shennifer. [address] [place] [address], [id number] , [place]. tel: [phone] [facility], [address], [place], [place], [address] , [place] tel: [phone] [facility] 6-8 week follow up (chief complaint) Incontinence of feces, unspecified fecal incontinence type 9 Bialecki Eldad. [address] [place] [address], [id number] , [place]. tel: [phone] Referring Provider: Deysi Proctor, [address] [facility] [address], [place], [address] . tel:[phone] [facility], [address], [place], [place], [address] , [place] tel: [phone] [facility] Incontinence of feces, unspecified fecal incontinence typeGastroesophag eal reflux disease, esophagitis presence not specified 9 Bialecki Eldad. [address] [place] [address], [id number] , [place]. tel: [phone] Referring Provider: Jennifer Holliday, [address] [facility] [address], [place], [address] . tel:[phone] [facility], [address], [place], [place], [address] , [place] tel: [phone] [facility] Incontinence of feces, unspecified fecal incontinence typeAcute conjunctivitis of right eye, unspecified acute conjunctivitis typeHeartburn 9 Ocampo Roberta. [address] [place] [address], [id number] , [place]. tel: [phone] Referring Provider: [address] [facility] [address] [place] [address], [address] . tel:[phone] [facility], [address], [place], [place], [address] , tel: [phone] [facility] Gastroesophageal reflux disease, esophagitis presence not specifiedAnemia, unspecified type 8 Terrence Granados. [address] [place] [address], [id number] , . tel: [phone] Referring Provider: [address] [facility] [address], [place], [address] . tel:[phone] [facility], [address], [place], [place], [address] , tel: [phone] [facility] Anemia, unspecified typeGastroesophag eal reflux disease, esophagitis presence not specifiedAbnormal liver diagnostic imaging Terrence Granados. [address] [place] [address], [id number] , [place]. tel: [phone] Referring Provider: [address] [facility], [place], [address] . tel:[phone] [facility], [address], [place], [place], [address] , tel: [phone] [facility] Diarrhea, unspecified typeIncontinence of feces, unspecified fecal incontinence typePharyngoesoph ageal dysphagia 7 Bialecki Eldad. [address] [place] [address], [id number] , [place]. tel: [phone] Referring Provider: [address] [facility] [address], [place], [address] . tel:[phone] [facility], [address], [place], [place], [address] , tel: [phone] [facility] Anemia, unspecified type 6 Bialecki Eldad. [address] [place] [address], [id number] , [place]. tel: [phone] [facility], [address], [place], [place], [address] , [place] tel: [phone] [facility] Gastroesophageal reflux disease, esophagitis presence not specifiedRegurgit ationDyspnea on effortShortness of breath 6 Karson Hatfield. [address] [place] [address], [address], [place], [place], [address] , [place]. tel: [phone] Referring Provider: Alysia Miles, [address] [facility] [address], [place], [address] . tel:[phone] Family History Family Member Type Diagnosis Age At Onset No Information Payers Payer name Insurance type Covered alliance party ID Authoriza tion(s) No Information Social History Type Description Quantity Date Captured Comments Sex Female Smoking Status No Information Chief Complaint And Reason For Visit No Information Reason For Referral Reason For Referral No Information Plan Of Treatment Date Type Action Status Referral Ordered: Anorectal manometry ordered History Of Present Illness Encounter Date Complaint History Of Prese nt Illness Follow up 83 year old sandra caba that presents with her for follow up. She denies any current problems with reflux. She denies any more fecal incontinence. She is seen for anemia as well. She has been diagnosed with Alzheimer's last month is followed by neurology, just started on medications. Just had labs with pcp, were normal per . annual 83 year old sandra caba presents with for her annual visit. She reports today having generalized pain, she has had evaluation with imaging, nothing found, she reports she has been having a headache. She denies any problems with her bowels, she is taking fiber sometimes. She had labs recently and reports they were normal. 6 month follow up 82 year old fe male that presents for 6 month follow up for GERD and fecal incontinence. She reports she has been feeling well overall. Some hip tenderness from previous surgery. She reports that she has been doing well with her acid reflux twice daily. She will have normal BM, then will have some loose stools that follows the solid BM. She is taking Follow up Acid reflux Medication refill 81 year old fe male that presents for medication refill. She has had increased regurgitation symptoms regurgitates food into her mouth-she swallows it back down. She has also had increased fecal incontinence having to wear a pad through the day and is incontinent of mushy stools, no blood in stools. Dysphagia Dysphagia (comments) every 2-3 d ays urge and BM and formed, BS #3, no strain, complete- after BM with have to change some leakage, michael with bend down. wean padding at night, leakage, leakage freq, a lot more at night. no rectal pain. makes her not want to leave house 3 month follow up (comments) 78 year old female that presents for follow up. Pt is feeling well, and denies any current symptoms. Is not taking daily fiber supplement. Having 3 bowel movements per week that are formed and soft. Decreased amount of times of fecal incontinence. Hx of low iron had iron infusions recent labs were normal. Dr. Valente referred pt to marketing communications leader, has appt end of March. Denies blood in stool, + dark stools (on oral iron). 3 month follow up Anemia Anemia Anemia 6-8 week follow up 6-8 week follow up (comments) on ly 2 accidents since last, much better, reviewed chart. gave exercises. Metamcil taking twice a day when remembers. Bowels more foremd and control. Daily, yest not feel well, urge all day and no successful. pelvic exercise. not taking imodium. Functional Status Date Functional Assessmen t No Information Instructions Date Instruction Additional Infor mation as above Related to Incon tinence of feces, unspecified fecal incontinence type Continue with your c urrent medicationsMonitor your diet and avoid foods that increase your symptoms Related to Gastroesophageal reflux disease, esophagitis presence not specified Follow up in the office in 6 mon ths Related to Anemia, unspecified I reviewed your labs they look great, we will continue to monitor and will check at your next follow up in 6 months Related to Anemia, unspecified Continue with your c urrent medicationsAvoid greasy and spicy foods Related to Gastroesophageal reflux disease, esophagitis presence not specified Continue with fiber dailyFollow up in the office in 6 months, call sooner for any problems Related to Incontinence of feces, unspecified fecal incontinence type Start taking a fiber supplement dailyWe will look for physical therapy closer to you Related to Incontinence of feces, unspecified fecal incontinence type Continue with your c urrent medications dailyFollow up in 6 months, call sooner with any questions Related to Gastroesophageal reflux disease, esophagitis presence not specified Continue with your c urrent medicationsYou can take the dicyclomine once dailyElevate your head using a wedge pillow, or more pillows at night when you are sleepingFollow up in 6 months, call sooner for problems Related to Gastroesophageal reflux disease, esophagitis presence not specified Start back on a fiber supplement daily Related to Incontinence of feces, unspecified fecal incontinence type as above Related to Regur gitation of food Continue with your current medic ations Related to Gastroesophageal reflux disease, esophagitis presence not specified Eat small mealsAvoid laying down for 3 hours after eatingI will review with Dr. Ty, and will contact you with a plan Related to Regurgitation of food Take fiber supplemen t daily for one week then increase to twice dailyThis will help give your stools more form Related to Incontinence of feces, unspecified fecal incontinence type labs to assess iron and blood co unts Related to Anemia, unspecified Agreed on following: Increase Metamucil to twice daily dosingDicyclomine 10mg given at bedtime (make sure not get too sleepy)- if helps a lot at night can try taking one dose in mornings tooWill consider cholestyramine nextAnal manometry to better characterize issue- expect call to arrangeFollow up 2 months Related to Incontinence of feces, unspecified fecal incontinence type Handout All of you labs have improved since having the iron infusions Related to Anemia, unspecified Take a daily fiber s upplement like MetamucilUse the dicyclomine as neededUse imodium as neededFollow up in the office in 6 months or sooner for any new or worsening symptoms Related to Incontinence of feces, unspecified fecal incontinence type Continue Metamucil a s doingDicyclomine trial 1-2 X a day may help cramping and help prevent more accidentsImodium 1-2 tabs a day NEEDED to give you more confidence to get out of houseCall for problemsFollow up in 3 months Related to Incontinence of feces, unspecified fecal incontinence type Handout Assessments Type Assessment Date No Information Patient Care Teams Name Effective Dates (start - stop) Status Members No Information
--- OUTSIDE RECORDS SUMMARY | 2024-09-16 13:13 | XMS_ITS | Encounter Summary ---
Author Organization [facility] Healthcare Address [address] [place] [address] Care Team Providers Care Blindstitch Machine Operator Name Role Phone Jennifer Holliday MD Primary Care Provid er Jennifer Holliday MD Unavailable [phone] Gentry Zamora MD Unavailable Brien Sue MD Unavailable Zakiya Shaikh MD PhD Unavailable [phone] Jeramy Lester MD Unavailable [phone] Karen Melendez MD Unavailable Alysia Ty MD Unavailable Reymundo Johnston MD Unavailable Natasha Holloway MA Unavailable [phone] Romie Mccord DO Unavailable [phone] Soledad West MD Unavailable Ankita REYNOLDS, Dusty BRYSON Unavailable Vasile Mcmanus MD Unavailable Lucy Reyes RN Unavailable [phone] Jerry Mahan MD Unavailable [phone] Lynn Edwards RN Unavailable [phone] Kurtis Ochoa MD Unavailable [phone] Eddie Munroe MD Unavailable [phone] Hermes Hernandez MD Unavailable Jessy Mckinney RN Unavailable [phone] Juan C Montelongo MD Unavailable Jono Boothe RN Unavailable [phone] Sergey Spence MD Unavailable + Juhi Connolly NP Unavailable [phone] Jailyn Downey RN Unavailable [phone] Reason for Visit * Reason Onset Date Comments Scheduling Appointments 02/27/2021 Confirmi ng mammogram appt Encounter Details Date Type Department Care Team (Late st Contact Info) Description 02/27/2021 Telephone [facility] [address] [place] [address] Kely Pizano, RT Scheduling Appointments ( Confirming mammogram appt) Social History Tobacco Use Types Packs/Day Years [...] than three times a week 11/27/2020 Attends [employer] Not on file 11/27 Active Member [...] points, staff should administer the PHQ-9) 0 02/17/2021 PRAPARE - Transportation Answer Date Re corded [...] on file Legal Sex Female 11:24 PM DIRECTOR 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 Gender Identity Female 02/03/2023 6:56 PM CDT [...] COVID: Suspected 07/02/2022 07/02/2022 07/02/2022 12:42 PM DIRECTOR 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 documented as of this encounter Care Teams Blindstitch Machine Operator Relationship Specialty Start Date End Date Jennifer Holliday MD [address] [facility] [address] [facility] [place] [address] PCP - General 10/30/16 Jennifer Holliday MD [address] [facility] [address] [facility] [place] [id number] PCP - Essence Attributed PCP 08/02/13 [place] [address] [address] [facility] [address] [place] [address] Social Media Intern Pulmonary Disease 03/25/18 02/03/23 Brien Sue MD [address] [place] [address] Medical Oncologist/Hematologi [facility] Oncology 03/25/18 07/05/22 Zakiya Shaikh MD PhD [address] [place] [address] Medical Oncologist/Hematologi [facility] Oncology 02/22/19 02/03/23 Jeramy Lester MD [address] [place] [address] Surgeon Cardiothoracic Surgery 03/16/19 Karen Melendez MD [address] [place] [address] Consulting Physician Rheumatology 05/22/19 Alysia Ty MD [address] [place], [place] [id number] Consulting Physician Gastroenterology 05/22/19 Reymundo Johnston MD [address] [place] [address] Referring Physician Gynecology 12/03/20 Natasha Holloway MA [address] [facility] [address] [place] [address] ACO Care Compliance Coordinator 10/06/21 10/14/21 Romie Mccord DO [address] [place] [address] [address] [place] [address] Consulting Physician Urology 10/29/21 02/03/23 Soledad West MD [address] [facility] [address] [place] [address] Consulting Physician Dermatology 10/29/21 Dusty Luciano IV, AUD [address] [facility] [place] [address] Four Slide Operator 10/29/21 Vasile Mcmanus MD [address] [place] [address] Surgeon Vascular Surgery 10/29/21 Lucy Reyes RN [address] [place] [address] [address] [place] [address] Rn Pacu 02/10/22 03/10/22 [place] [address] [address] [facility] [address] [place] [address] Surgeon Orthopedic Surgery 02/25/22 07/05/22 Lynn Edwards, ATIYA [address] [place] [address] [address] [place] [address] Rn Pacu 06/18/22 07/15/22 Kurtis Ochoa MD [address] [facility] [address] [place] [address] Referring Physician Orthopedic Surgery 07/06/22 Eddie Munroe MD [address] [facility] [address] [place] [address] Consulting Physician Neurosurgery 07/06/22 02/03/23 Hermes Hernandez MD [address] [facility] [address] [place] [address] Consulting Physician Neurology 08/06/22 Jessy Mckinney, RN [address] [place] [address] [address] [place] [address] Rn Pacu 12/10/22 01/06/23 Juan C Montelongo MD [address] [place] [address] Referring Physician Otolaryngology 10/26/23 Jono Boothe RN [address] [place] [address] [address] [place] [address] Rn Pacu 02/25/24 06/15/24 Sergey Spence MD [address] [place] [address] Referring Physician Gastroenterology 03/09/24 Juhi Connolly, INSTANTIZER OPERATOR [address] [place] [address] [address] [place] [address] Neurology 04/10/24 Jailyn Downey RN [address] [place] [address] [address] [place] [address] Rn Pacu 06/16/24 documented as of this encounter
--- OUTSIDE RECORDS SUMMARY | 2024-09-16 13:13 | XMS_ITS | Clinical Summary ---
Author Organization [facility] Address [address] [facility] [place] [address] Care Team Providers Care Adobe Maker Name Role Phone Jennifer Holliday MD Primary Care Provid er Source Comments [facility],non-owned Affiliates and Associated Physician Practices is amultiple site organization consisting of ambulatory clinics and hospital sitesin [place], [place]. This disclosure is being madepursuant to the Care Everywhere program and may not contain all information available regarding this patient. Last updated 18.Myxer Allergies No known active allergies Medications * [...] fluticasone propionate (FLONASE) 50 MCG/ACT nasal spray Strawberry 2 Sprays into each nostril once daily 1 Bottle 08/15/2016 Active predniSONE (DELTASONE) 1 MG tablet 08/03/2016 Active Active Problems Problem Noted Date Diagnosed Date Neck swelling 11/19/2020 HTN (hypertension) 08/13/2016 Family History Medical History Relation Name Comments Cancer - Pancreatic Other 1 DVT - Deep Vein Thrombosis Other 2 CVA Other 3 Relation Name Status Comments Other 1 Other 2 Other 3 Social History Tobacco Use Types Packs/Day Years [...] Comments Blood Pressure 117/84 08/25/2016 11:55 AM HOSPITAL SECURITY OFFICER Pulse 99 08/25/2016 11:55 AM HOSPITAL SECURITY OFFICER Temperature 36.4 C (97.5 F) 08/15/2016 7:07 AM HOSPITAL SECURITY OFFICER Respiratory Rate 18 08/15/2016 7:07 AM HOSPITAL SECURITY OFFICER Oxygen Saturation 92% 08/15/2016 7:07 AM HOSPITAL SECURITY OFFICER Inhaled Oxygen Concentration - - Weight 70.3 kg (155 lb) 08/25/2016 11:55 AM HOSPITAL SECURITY OFFICER Height 164.5 cm (5' 4.75 ) 08/25/2016 11:[address] Body Mass Index 25.99 08/25/2016 11:55 AM HOSPITAL SECURITY OFFICER Plan of Treatment Health Maintenance Due Date Last Done Comments BONE DENSITY TESTING 1941 DTAP/TDAP/TD VACCINES (1 - Tdap) 1960 PNEUMOCOCCAL VACCINE 50+ (1 of 1 - PCV) 1991 ZOSTER VACCINE (1 of 2) 1991 Respiratory Syncytial Virus (RSV) Vaccine Pt: or over 60 yrs (1 - 1-dose 75+ series) 2016 COVID-19 VACCINE (1 - 2023- season) 2024 INFLUENZA VACCINE (#1) 2024 9, 04/20/2018, 05/19/2017, Additional history exists DEPRESSION SCREENING 08/02/2024 MEDICARE AWV CALENDAR YEAR 2024 HEPATITIS B VACCINE Aged Out No longe r eligible based on patient's age to complete this topic HIB VACCINE Aged Out No longer eligi ble based on patient's age to complete this topic HPV VACCINE Aged Out No longer eligi ble based on patient's age to complete this topic MENINGOCOCCAL (Group B) VACCINE Aged Out No longer eligible based on patient's age to complete this topic MENINGOCOCCAL VACCINE Aged Out No lisa antione eligible based on patient's age to complete this topic Medical Devices Implanted Type Area Cam Specialist Device Identifier Shelf Expiration Date Model / Serial / Lot Human Allograft Tissu Implanted:Qty : 1 on 01/06/2016 by Reymundo Shelley MD at [facility] [employer] [id number] / [id number] / Mesh Micro 6 X 8 Pc Implanted:Qty : 1 on 08/12/2016 by Reymundo Shelley MD at [facility] N/A: Abdomen [employer] 04/02/2017 [id number] / / [id number] Advance Directives * Full Code (Latest Code Status on File) Date Activated Date Inactivated Comments 08/12/2016 7:42 PM 08/15/2016 5:02 PM * Full Code Date Activated Date Inactivated Comments 01/06/2016 1:29 PM 01/08/2016 12:30 PM Care Teams Adobe Maker Relationship Specialty Start Date End Date Jennifer Holliday MD PCP - General Internal Medicine 10/10/15
--- OUTSIDE RECORDS SUMMARY | 2024-09-16 13:13 | XMS_ITS | Encounter Summary ---
Author Organization [facility] Address [address] [place] [address] Phone Care Team Providers Care Stock Dealer Name Role Phone Jennifer Holliday MD Primary Care Provid er Jennifer Holliday MD Unavailable [phone] Gentry Zamora MD Unavailable Brien Sue MD Unavailable Lucy Reyes RN Unavailable [phone] Zakiya Shaikh MD PhD Unavailable [phone] Jeramy Lester MD Unavailable Karen Melendez MD Unavailable Alysia Ty MD Unavailable Lucy Reyes RN Unavailable Reymundo Johnston MD Unavailable Natasha Holloway MA Unavailable [phone] Romie Mccord DO Unavailable Soledad West MD Unavailable Hopper IV, AUD, C Gomez Unavailable Vasile Mcmanus MD Unavailable Lucy Reyes RN Unavailable Jerry Mahan MD Unavailable Lynn Edwards RN Unavailable Kurtis Ochoa MD Unavailable Eddie Munroe MD Unavailable Hermes Hernandez MD Unavailable Jessy Mckinney RN Unavailable Juan C Montelongo MD Unavailable Jono Boothe RN Unavailable [phone] Sergey Spence MD Unavailable + Juhi Connolly NP Unavailable [phone] Jailyn Downey RN Unavailable Encounter Details Date Type Department Care Team (Late st Contact Info) Description 05/02/2018 Telephone [facility] Surgery [address] [address] Haley Bergeron Social History Tobacco Use Types Packs/Day Years Used Date Smoking Tobacco: Former Cigarettes 1 25 0 08/02/1957 - 08/02/1982 Smokeless Tobacco: Never Alcohol Use Standard Drinks/Week Comments Yes 0 (1 standard drink = 0.6 oz pur e alcohol) occasionally Comments No Sex and Gender Information Value Date Recorded Sex Assigned at Not on file Legal Sex Female 11:24 PM GLASS GRINDER Gender Identity Female 02/03/2023 6:56 PM CDT [...] COVID: Suspected 07/02/2022 07/02/2022 07/02/2022 12:42 PM GLASS GRINDER documented as of this encounter Care Teams Stock Dealer Relationship Specialty Start Date End Date Jennifer Holliday MD [address] [facility] [address], [place] [id number] PCP - General 10/30/16 Jennifer Holliday MD [address] [facility] [address] [place] [id number] PCP - Essence Attributed PCP 08/02/13 [place] [address] [facility] [address] [place] [address] Professor Of Physics Pulmonary Disease 03/25/18 02/03/23 Brien Sue MD [address] [place], [place] [id number] Medical Oncologist/Hematologi [facility] Oncology 03/25/18 07/05/22 Lucy Reyes RN [address] [place] [address] [address] [place] [address] Dispute Resolution Analyst 04/21/18 05/29/18 Zakiya Shaikh MD PhD [address] [place] [address] [address] [place] [address] Medical Oncologist/Hematologi [facility] Oncology 02/22/19 02/03/23 Jeramy Lester MD [address] [place] [address] [address] [place] [address] Surgeon Cardiothoracic Surgery 03/16/19 Karen Melendez MD [address] [place] [address] [address] [place] [address] Consulting Physician Rheumatology 05/22/19 Alysia Ty MD [address] [place] [address] [address] [place] [address] Consulting Physician Gastroenterology 05/22/19 Lucy Reyes, ATIYA [address] [facility] [address] [place] [address] Dispute Resolution Analyst 11/26/20 01/05/21 Reymundo Johnston MD [address] [facility] [address] [place], [place] [id number] Referring Physician Gynecology 12/03/20 Natasha Holloway MA [address] [facility] [address] [place] [address] ACO Care Help Desk Supervisor 10/06/21 10/14/21 Romie Mccord DO [address] [place] [address] [address] [place] [address] Consulting Physician Urology 10/29/21 02/03/23 Soledad West MD [address] [email or web address] [address] [place] [address] Consulting Physician Dermatology 10/29/21 Dusty Luciano IV, AUD [address] [place] [address] Carbon Brusher Assembler 10/29/21 Vasile Mcmanus MD [address] [place] [address] Surgeon Vascular Surgery 10/29/21 Lucy Reyes RN [address] [place] [address] [facility] [address] [place] [address] Dispute Resolution Analyst 02/10/22 03/10/22 [place] [address] [facility] [address] [place] [address] Surgeon Orthopedic Surgery 02/25/22 07/05/22 Lynn Edwards RN [address] [place] [address] [facility] [address] [place] [address] Dispute Resolution Analyst 06/18/22 07/15/22 Kurtis Ochoa MD [address] [place], [place] [address] Referring Physician Orthopedic Surgery 07/06/22 Eddie Munroe MD [address] [facility] [address] [place] [address] Consulting Physician Neurosurgery 07/06/22 02/03/23 Hermes Hernandez MD [address] [facility] [address] [place] [address] Consulting Physician Neurology 08/06/22 Jessy Mckinney RN [address] [place] [address] [facility] [address] [place] [address] Dispute Resolution Analyst 12/10/22 01/06/23 Juan C Montelongo MD [address] [place] [address] Referring Physician Otolaryngology 10/26/23 Jono Boothe RN [address] [place] [address] [address] [place] [address] Dispute Resolution Analyst 02/25/24 06/15/24 Sergey Spence MD [address] [place] [address] Referring Physician Gastroenterology 03/09/24 Juhi Connolly, EDILMA [address] [place] [address] [address] [place] [address] Neurology 04/10/24 Jailyn Downey RN [address] [place] [address] [address] [place] [address] Dispute Resolution Analyst 06/16/24 documented as of this encounter
--- NOTE | 2024-09-16 15:44 | ED.URI ---
HPI - URI/Sore Throat General Chief Complaint: Upper Respiratory Infection Stated Complaint: sick for 4-5 days Time Seen by Provider: 09/16/24 15:44 Source: patient Mode of arrival: ambulatory Limitations: no limitations History of Present Illness HPI Narrative: This is an 84-year-old female who presents to the ED for chief complaint of cough, sore throat, ear pain and headaches times 4-5 days. He family thought she was dry heaving earlier today. She has history of Alzheimer's. They state that she has had the cough for the last 7-10 days. Patient states that the headache is most bothersome to her and she has bilateral earaches. Her family is concerned because she had a fall several weeks ago. Denies fevers, chills, chest pain, shortness of breath, abdominal pain, vomiting, diarrhea, flank pain. Denies urinary symptoms. Related Data Home Medications ?Medication ?Instructions ?Recorded ?Confirmed ?Last Taken ?Type cyanocobalamin (vitamin B-12) 500 1,000 mcg PO DAILY 05/14/22 09/16/24 12/02/22 History mcg tablet (Vitamin B-12) cyclobenzaprine 10 mg tablet 10 mg PO BID PRN Muscle Spasm 05/14/22 02/20/24 Unknown History donepezil 5 mg tablet 10 mg PO HS 05/14/22 09/16/24 12/02/22 History eszopiclone 3 mg tablet 3 mg PO HS 05/14/22 02/20/24 12/02/22 History ezetimibe 10 mg tablet 10 mg PO DAILY 05/14/22 02/20/24 12/02/22 History folic acid 1 mg tablet 1 mg PO DAILY 05/14/22 02/20/24 12/02/22 History gabapentin 600 mg tablet 600 mg PO TID 05/14/22 02/20/24 12/02/22 History levothyroxine 50 mcg tablet 50 mcg PO DAILY 05/14/22 02/20/24 12/02/22 History pantoprazole 40 mg tablet,delayed 40 mg PO BID 05/14/22 02/20/24 12/02/22 History release dicyclomine 10 mg capsule See Rx Instructions .Route 12/03/22 02/20/24 Unknown History .COMPLEX PRN Diarrhea amlodipine 5 mg tablet 5 mg PO DAILY 02/20/24 09/16/24 Unknown History atorvastatin 10 mg tablet 10 mg PO DAILY 02/20/24 09/16/24 Unknown History duloxetine 60 mg capsule,delayed 60 mg PO DAILY 02/20/24 09/16/24 Unknown History release famotidine 20 mg tablet 20 mg PO BID PRN acid reflex 02/20/24 02/20/24 Unknown History losartan 50 mg tablet 50 mg PO HS 02/20/24 02/20/24 Unknown History multivitamin with minerals-folic 1 tablet PO DAILY 02/20/24 02/20/24 Unknown History acid 0.4 mg tablet prednisone 1 mg tablet 4 mg PO DAILY 02/20/24 02/20/24 Unknown History rivastigmine 9.5 mg/24 hour 1 patch topical DAILY 02/20/24 02/20/24 Unknown History transdermal patch Allergies Allergy/AdvReac Type Severity Reaction Status Date / Time diphenhydramine (From AdvReac Agitated Verified 09/16/24 13:35 Benadryl) Review of Systems Review of Systems: All systems as dictated in [facility] Past Medical History Medical History (Updated 09/16/24 @ 18:38 by Rupesh Aguiar PA-C) Presence of pancreatic duct stent Acquired leg length discrepancy Trochanteric bursitis, left hip Bacteremia Abnormal CT scan, esophagus Dementia Chronic GERD Anemia Encounter for postoperative care Chronic kidney disease Compression fracture of thoracic vertebra Closed intertrochanteric fracture of left hip Hypothyroidism Hyperlipidemia Hypertension Surgical History Surgical History S/P ORIF (open reduction internal fixation) fracture left hip H/O: hysterectomy Hx of cholecystectomy Family History Family History Father Heart disease Mother Heart disease Sibling Heart disease Malignant neoplasm of prostate Social History Social History Social History: She is and has 4 children . 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 She does not use any alcohol marijuana or illicit drug. Her is the durable power trademark attorney for healthcare. code full code Smoking status: Never smoker Alcohol intake: never Substance use: never Substance use type: does not use Do You Feel Safe in your Home?: Yes Lack of Transportation: No Lack of Food: Never True Current Housing: I Have Housing Concerned About Future Housing: No Difficulty Paying Gas/Electric Bills: No Difficulty Paying for Meds: No Currently Unemployed: No Education: High School Diploma/GED Difficulty w/ Childcare or Family Care: No Living arrangements: with family Gender identity (if verbalized by the patient): Female Spiritual care concerns: No Exam Narrative: GENERAL: Well-appearing, well-nourished, and in no acute distress. HEAD: Normocephalic, atraumatic. EYES: PERRLA and EOMI. ENT: Nares clear, no rhinorrhea or epistaxis. Mucous membranes moist. Oropharynx without tonsillar hypertrophy exudate or other lesions. NECK: Supple. No adenopathy or masses. CHEST: No respiratory distress. Clear to auscultation. No wheezes rales or rhonchi HEART: Regular rate and rhythm. No murmur heard. Normal peripheral pulses. ABDOMEN: Soft, nontender, nondistended, normal active bowel sounds. MSK: Normal range of motion. No edema. SKIN: Warm, dry, no rash. NEURO: Alert and oriented x4. No focal deficits. PSYCH: Normal mood and affect. Course Vital Signs Vital signs: Vital Signs Temperature 98.0 F 09/16/24 13:32 Pulse Rate 114 H 09/16/24 13:32 Respiratory Rate 18 09/16/24 13:32 Blood Pressure 137/94 H 09/16/24 13:32 Pulse Oximetry 100 09/16/24 13:32 Temperature 98.0 F 09/16/24 13:32 Pulse Rate 87 09/16/24 18:02 Respiratory Rate 15 09/16/24 18:02 Blood Pressure 134/96 H 09/16/24 17:46 Pulse Oximetry 97 09/16/24 18:02 MDM - URI/Sore Throat MDM Narrative Medical decision making narrative: This is a 84-year-old female who presents to the ED for chief complaint of cough, sore throat ear pain along with headaches. Vitals show slight tachycardia on arrival but otherwise normal. Exam is remarkable for the above. She does not appear toxic. She is conversational and resting comfortably. Lab work shows mildly elevated white count of 11.2. CMP shows slight elevation in BUN but creatinine is at baseline. She was given oral potassium here for hypokalemia of 3.1. Viral swabs negative. Head CT shows no acute findings. Chest x-ray shows coarse interstitial lung markings without focal infiltrate or effusion. On re-evaluation she is resting comfortably. She states that her headache is fully resolved with Tylenol. She was given some fluids for initial tachycardia but vitals have completely normalized. Urinalysis does show trace leuks and some bacteria but family states that her urinalysis is always questionable. Shared decision making with family to avoid antibiotic treatment today and follow-up with PCP, pending urine culture. Daughter is agreeable with this plan. Patient will be discharged in stable condition. Supportive measures discussed and return precautions given. Patient/family are understanding and agreeable with plan for discharge with PCP follow-up. Lab Data 09/16/24 16:13 09/16/24 16:13 Labs: Lab Results 09/16/24 09/16/24 Range/Units 16:13 16:22 WBC 11.2 H (4.5-10.0) K/mm3 RBC 4.66 (4.2-5.4) M/mm3 Hgb 14.5 (12.0-15.0) g/dL Hct 42.5 (37.0-47.0) % MCV 91.2 (80-100) fl MCH 31.1 (26-34) pg MCHC 34.1 (32-36) g/dl RDW 13.8 (11.5-14.5) % Plt Count 356 (150-375) k/mm3 MPV 10.6 H (7.4-10.4) fl Immature Gran % (Auto) 0.4 (0-0.5) % Neut % (Auto) 76.3 H (45.5-73.1) % Lymph % (Auto) 12.6 L (18.3-44.2) % Hunt % (Auto) 8.7 H (2.6-8.5) % Eos % (Auto) 1.3 (0-4.4) % Baso % (Auto) 0.7 (0.2-1.2) % Lymph # (Auto) 1.40 (0.9-3.2) K/mm3 Hunt # (Auto) 1.0 H (0.1-0.6) K/mm3 Eos # (Auto) 0.1 (0-0.3) K/mm3 Baso # (Auto) 0.1 (0.0-0.1) K/mm3 Abs Immat Gran (auto) 0.05 H (0.00-0.031) K/mm3 Absolute Neuts (auto) 8.5 H (1.3-6.7) K/mm3 Absolute Nucleated RBC 0.000 (0.0-0.012) K/mm3 Nucleated RBC % 0.0 (0.0-0.2) % Sodium 139 (137-145) mmol/L Potassium 3.1 L (3.4-5.0) mmol/L Chloride 104 (98-107) mmol/L Carbon Dioxide 22 (22-30) mmol/L Anion Gap 13 H (4-12) mmol/L BUN 24 H D (7-17) mg/dL Creatinine 1.03 H (0.7-1.0) mg/dL Estim Creat Clear Calc Not Reportable Estimated GFR 51 L (59 - ) Glucose 154 H (65-110) mg/dL Calcium 10.1 (8.4-10.2) mg/dL Total Bilirubin 1.4 H (0.2-1.3) mg/dL AST 31 (14-36) U/L ALT 27 (6-35) U/L Alkaline Phosphatase 99 (38-126) U/L Total Protein 7.0 (6.3-8.2) g/dL Albumin 4.0 (3.5-5.1) g/dL Urine Color Dark yellow (Yellow) Urine Appearance Clear (Clear) Urine pH 5.5 (5.0-9.0) Ur Specific [place] 1.021 (1.001-1.035) Urine Protein 3+ H (Negative) mg/dL Urine Glucose (UA) Negative (Negative) mg/dL Urine Ketones Trace H (Negative) mg/dL Ur Blood (Man) Negative (Negative) Urine Nitrate Negative (Negative) Urine Bilirubin 1+ H (Negative) Urine Urobilinogen 1.0 (<2.0) mg/dL Add Ur Microanalysis Reviewed Leukocyte Esterase Rfl Trace H (Negative) PHILLIP/UL Urine RBC 0-2 (0-2) /hpf Urine WBC 6-10 H (0-3) /hpf Ur Squamous Epith Cells None seen (Few) /hpf Urine Bacteria 3+ H /hpf Urine Casts 11-20 Hyaline Casts Present (None) /lpf Influenza A (RT-PCR) Negative (Negative) Influenza B (RT-PCR) Negative (Negative) RSV (RT-PCR) Negative (Negative) SARS-CoV-2 RNA (RT-PCR) Negative (Negative) Discharge Plan Discharge Clinical Impression: Headache, Alzheimer dementia, Abnormal urinalysis Patient Disposition: Home, Self-Care Condition: Stable Instructions: Antibiotic Form Additional Instructions: Exam and imaging today are reassuring overall. Please follow-up closely with PCP regarding the workup today and to follow-up on urinalysis. Continue with Tylenol 500 mg every 6 hours for headaches. Stay well hydrated at home. If you have any new or worsening symptoms please return to the ER for further evaluation. Patient Language: Sri Lankan Prescriptions: No Action cyclobenzaprine 10 mg tablet 10 mg PO BID PRN (Reason: Muscle Spasm) gabapentin 600 mg tablet 600 mg PO TID donepezil 5 mg tablet 10 mg PO HS levothyroxine 50 mcg tablet 50 mcg PO DAILY pantoprazole 40 mg tablet,delayed release (DR/EC) 40 mg PO BID folic acid 1 mg tablet 1 mg PO DAILY ezetimibe 10 mg tablet 10 mg PO DAILY eszopiclone 3 mg tablet 3 mg PO HS cyanocobalamin (vitamin B-12) [Vitamin B-12] 500 mcg Tablet 1,000 mcg PO DAILY losartan 50 mg tablet 50 mg PO HS atorvastatin 10 mg Tablet 10 mg PO DAILY amlodipine 5 mg tablet 5 mg PO DAILY famotidine 20 mg tablet 20 mg PO BID PRN (Reason: acid reflex) prednisone 1 mg tablet 4 mg PO DAILY duloxetine 60 mg capsule,delayed release(DR/EC) 60 mg PO DAILY rivastigmine 9.5 mg/24 hour patch 24 hour 1 patch topical DAILY multivit with min-folic acid 0.4 mg Tablet 1 tablet PO DAILY carvedilol [Coreg] 3.125 mg Tablet 3.125 mg PO Q12HR Qty: 60 0RF dicyclomine 10 mg capsule See Rx Instructions .ROUTE .COMPLEX PRN (Reason: Diarrhea) Rx Instructions: Take 1-2 tabs daily as needed Follow-up/Referrals: PHYSICIAN NOT ON STAFF,NONSTAFF [Primary Care Provider] - Time of Disposition: 18:34
--- NOTE | 2024-09-16 15:58 | ECG_ITS ---
Test Date: 2024-09-16 16:12:28 Measurements Intervals Busby Rate: 101 P: 30 AK: 145 QRS: -24 QRSD: 90 T: 17 QT: 349 QTc: 453 Interpretive Statements SINUS TACHYCARDIA WITH OCCASIONAL SUPRAVENTRICULAR PREMATURE COMPLEXES INCOMPLETE RIGHT BUNDLE BRANCH BLOCK LEFT VENTRICULAR HYPERTROPHY WITH ST-T CHANGE BORDERLINE T WAVE ABNORMALITY- INFERIOR LEADS BASELINE ARTIFACT- I, II, III, AVR, AVL, AVF, V1, V5 BORDERLINE ECG No previous ECG available for comparison Electronically Signed On 09-16-2024 17:06:48 ELECTRICAL CONTINUITY TESTER by Rm Vee D.O.
--- OUTSIDE RECORDS SUMMARY | 2024-09-16 16:06 | XMS_ITS | Encounter Summary ---
Author Organization [facility] Address [address] [place] [address] Phone Care Team Providers Care Wagon Drill Operator Name Role Phone Jennifer Holliday MD Primary Care Provid er Jennifer Holliday MD Unavailable [phone] Gentry Zamora MD Unavailable Brien Sue MD Unavailable Lucy Reyes RN Unavailable [phone] Zakiya Shaikh MD PhD Unavailable [phone] Jeramy Lester MD Unavailable Karen Melendez MD Unavailable Alysia Ty MD Unavailable Lucy Reyes RN Unavailable Reymundo Johnston MD Unavailable Natasha Holloway MA Unavailable [phone] Romie Mccord DO Unavailable Soledad West MD Unavailable Hopper IV, AUD, C Gomez Unavailable [phone] Vasile Mcmanus MD Unavailable Lucy Reyes RN Unavailable Jerry Mahan MD Unavailable Lynn Edwards RN Unavailable Kurtis Ochoa MD Unavailable [phone] Eddie Munroe MD Unavailable Hermes Hernandez MD Unavailable Jessy Mckinney RN Unavailable [phone] Juan C Montelongo MD Unavailable Jono Boothe RN Unavailable [phone] Sergey Spence MD Unavailable + Juhi Connolly NP Unavailable [phone] Jailyn Downey RN Unavailable Encounter Details Date Type Department Care Team (Late st Contact Info) Description 05/02/2018 Telephone [facility] Surgery [id number] [address] Haley Bergeron Social History Tobacco Use Types Packs/Day Years Used Date Smoking Tobacco: Former Cigarettes 1 25 0 08/02/1957 - 08/02/1982 Smokeless Tobacco: Never Alcohol Use Standard Drinks/Week Comments Yes 0 (1 standard drink = 0.6 oz pur e alcohol) occasionally Comments No Sex and Gender Information Value Date Recorded Sex Assigned at Not on file Legal Sex Female 11:24 PM PURCHASING 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 Gender Identity Female 02/03/2023 6:56 PM [...] COVID: Suspected 07/02/2022 07/02/2022 07/02/2022 12:42 PM PURCHASING 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 documented as of this encounter Care Teams Wagon Drill Operator Relationship Specialty Start Date End Date Jennifer Holliday MD [address] [facility] [address], [place] [id number] PCP - General 10/30/16 Jennifer Holliday MD [address] [facility] [address] [place] [id number] PCP - Essence Attributed PCP 08/02/13 [place] [address] [facility] [address] [place] [address] Paper Guillotine Operator Pulmonary Disease 03/25/18 02/03/23 Brien Sue MD [address] [place], [place] [id number] Medical Oncologist/Hematologi [facility] Oncology 03/25/18 07/05/22 Lucy Reyes RN [address] [place] [address] [address] [place] [address] Supervisor Marble 04/21/18 05/29/18 Zakiya Shaikh MD PhD [address] [place] [address] [address] [place] [address] Medical Oncologist/Hematologi [facility] Oncology 02/22/19 02/03/23 Jeramy Lester MD [address] [place] [address] [address] [place] [address] Surgeon Cardiothoracic Surgery 03/16/19 Karen Melendez MD [address] [place] [address] [address] [place] [address] Consulting Physician Rheumatology 05/22/19 Alysia Ty MD [address] [place] [address] [address] [place] [address] Consulting Physician Gastroenterology 05/22/19 Lucy Reyes, ATIYA [address] [facility] [address] [place] [address] Supervisor Marble 11/26/20 01/05/21 Reymundo Johnston MD [address] [facility] [address] [place], [place] [id number] Referring Physician Gynecology 12/03/20 Natasha Holloway MA [address] [facility] [address] [place] [address] ACO Care Biodiesel Plant Manager 10/06/21 10/14/21 Romie Mccord DO [address] [place] [address] [address] [place] [address] Consulting Physician Urology 10/29/21 02/03/23 Soledad West MD [address] [facility] [address] [place] [address] Consulting Physician Dermatology 10/29/21 Dusty Luciano IV, AUD [address] [place] [address] Steno Pool Supervisor 10/29/21 Vasile Mcmanus MD [address] [place] [address] Surgeon Vascular Surgery 10/29/21 Lucy Reyes RN [address] [place] [address] [facility] [address] [place] [address] Supervisor Marble 02/10/22 03/10/22 [place] [address] [facility] [address] [place] [address] Surgeon Orthopedic Surgery 02/25/22 07/05/22 Lynn Edwards RN [address] [place] [address] [facility] [address] [place] [address] Supervisor Marble 06/18/22 07/15/22 Kurtis Ochoa MD [address] [place], [place] [id number] Referring Physician Orthopedic Surgery 07/06/22 Eddie Munroe MD [address] [facility] [address] [place] [address] Consulting Physician Neurosurgery 07/06/22 02/03/23 Hermes Hernandez MD [address] [facility] [address] [place] [address] Consulting Physician Neurology 08/06/22 Jessy Mckinney RN [address] [place] [address] [facility] [address] [place] [address] Supervisor Marble 12/10/22 01/06/23 Juan C Montelongo MD [address] [place] [address] Referring Physician Otolaryngology 10/26/23 Jono Boothe RN [address] [place] [address] [address] [place] [address] Supervisor Marble 02/25/24 06/15/24 Sergey Spence MD [address] [place] [address] Referring Physician Gastroenterology 03/09/24 Juhi Connolly, EDILMA [address] [place] [address] [address] [place] [address] Neurology 04/10/24 Jailyn Downey RN [address] [place] [address] [address] [place] [address] Supervisor Marble 06/16/24 documented as of this encounter
--- OUTSIDE RECORDS SUMMARY | 2024-09-16 16:06 | XMS_ITS | Referral Summary ---
Author Organization [facility] Address [address] [facility] [place] [address] Care Team Providers Care Advanced Solutions Architect Name Role Phone Jennifer Holliday MD Primary Care Provid er Source Comments [facility],non-owned Affiliates and Associated Physician Practices is amultiple site organization consisting of ambulatory clinics and hospital sitesin [place], [place], [place] and [place]. This disclosure is being madepursuant to the Care Everywhere program and may not contain all information available regarding this patient. Last updated 18.EyeEm Allergies No known active allergies Medications * [...] fluticasone propionate (FLONASE) 50 MCG/ACT nasal spray [place] 2 Sprays into each nostril once daily [...] Comments Blood Pressure 117/84 08/25/2016 11:55 AM CARD PLAYER Pulse 99 08/25/2016 11:55 AM CARD PLAYER Temperature 36.4 C (97.5 F) 08/15/2016 7:07 AM CARD PLAYER Respiratory Rate 18 08/15/2016 7:07 AM CARD PLAYER Oxygen Saturation 92% 08/15/2016 7:07 AM CARD PLAYER Inhaled Oxygen Concentration - - Weight 70.3 kg (155 lb) 08/25/2016 11:55 AM CARD PLAYER Height 164.5 cm (5' 4.75 ) 08/25/2016 11:[address] Body Mass Index 25.99 08/25/2016 11:55 AM CARD PLAYER Functional Status Functional Status Response Date of [...] on file Medical Devices Implanted Type Area Fixture Maker Device Identifier Shelf Expiration Date Model / Serial / Lot Human Allograft Tissu Implanted:Qty : 1 on 01/06/2016 by Reymundo Shelley MD at [facility] [employer] [id number] / [id number] / Mesh Micro 6 X 8 Pc Implanted:Qty : 1 on 08/12/2016 by Reymundo Shelley MD at [facility] N/A: Abdomen [employer] 04/02/2017 [id number]-[id number] / / [id number] Advance Directives * Full Code (Latest Code Status on File) Date Activated Date Inactivated Comments 08/12/2016 7:42 PM 08/15/2016 5:02 PM * Full Code Date Activated Date Inactivated Comments 01/06/2016 1:29 PM 01/08/2016 12:30 PM Care Teams Advanced Solutions Architect Relationship Specialty Start Date End Date Jennifer Holliday MD PCP - General Internal Medicine 10/10/15
--- OUTSIDE RECORDS SUMMARY | 2024-09-16 16:06 | XMS_ITS | Continuity of Care Document ---
Author Organization [facility] [place] [address] [place] [address] Phone Care Team Providers Care Rn Plastics Name Role Phone Tamia ORTIZ MD, Prasad [...] Visit Remove Cataract, Insert Lens Office/outpatient Visit, [facility] No Charge Refraction IOLMaster IOLMaster Advance Directives Directive Yes / No Effective Date File Name No Information Encounters Encounter Description Practice Location Reason(s) For Visit Diagnoses Date Provider Providers Copied on Encounter Office/outpa tient Visit, [facility], [address], [place], [place], [id number], tel:[phone] SEC Arjun GUADALUPE Professional 6 month IOL check (chief complaint) Pseudophakia 0- 5 Tamia Parham. [address], [address], [place], [address], [place]. tel:[phone] Referring Provider: Sergio Langford OD, [facility] [address] [facility], [place], [address]. tel:[phone] [facility], [address], [place], [place], [address], [place] [phone] SEC Arjun GUADALUPE Professional No Information 5 Wankum Daquan. [address] [facility] [place], [address], [place]. tel:[phone] [facility], [address], [place], [place], [address], [place] [phone] SEC Arjun GUADALUPE Professional No Information 5 Wankum Daquan. [address] [facility] [address], [place], [place], [address], [place]. tel:[phone] [facility], [address], [place], [place], [address], [place] tel:[phone] SEC Arjun GUADALUPE Professional 2 WK PO PHACO OD (chief complaint) Follow-up examination after surgery 0 4 Tamia Parham. [address], [address], [place], [address], [place]. tel:[phone] Referring Provider: Sergio Langford OD, [facility] [address] [place], [address]. tel:[phone] [facility], [address], [place], [place], [address], [place] tel:[phone] SEC Arjun GUADALUPE Professional F/u exam, postop (chief complaint) Follow-up examination after surgery 4 Earlene Butt. [address], [place], [place], [address], [place]. tel:[phone] Referring Provider: Sergio Langford OD, [facility] [address] [place], [address]. tel:[phone] [facility], [address], [place], [place], [address], [place] tel:[phone] [facility] No Information 4 Tamia Parham. [address], [place], [address], [place]. tel:[phone] Referring Provider: Daquan Lanier, [address], [place], [address] . tel:[phone] [facility], [address], [place], [place], [address], [place] tel:[phone] SEC Arjun GUADALUPE Professional 2 WK PO PHACO OS (chief complaint) Follow-up examination after surgery 4 Earlene Butt. [address], [place], [place], [address], [place]. tel:[phone] Referring Provider: Sergio Langford OD, [facility] [address] [place], [address]. tel:[phone] [facility], [address], [place], [place], [address], [place] tel:[phone] SEC Arjun GUADALUPE Professional 1 DAY PO PHACO IOL OS (chief complaint) Follow-up examination after surgery 4 Tamia Parham. [address], [address], [place], [place], [facility], [place]. tel:[phone] Referring Provider: Sergio Langford OD, [facility] [address] [place], [address]. tel:[phone] [facility], [address] [place] [address] [address], [place], [place], [address], [place] tel:[phone] [facility] No Information 4 Tamia Parham. [address], [place], [place], [facility], [place]. tel:[phone] Referring Provider: Sergio Langford OD, [facility] [address] [place], [address]. tel:[phone] Office/outpa tient Visit, [facility], [address] [place] [address] [address], [place], [place], [address], [place] tel:[phone] SEC Arjun GUADALUPE Professional Cataract Evaluation (chief complaint) Senile nuclear cataract May- 4 Tamia Parham. [address], [place], [address], [place]. tel:[phone] Referring Provider: Sergio Langford OD, [facility] [address] [place], [address]. tel:[phone] [facility], [address] [place] [address] [address], [place], [place], [address], [place] tel:[phone] SEC Dinora Read No Information 4 Earlene Butt. [address] [facility], [place], [place], [address], [place]. tel:[phone] Family History Family Member Type Diagnosis Age At Onset Problem (finding) Family history of diabetes mellitus type 2 Problem (finding) Family history of hyper tension Payers Payer name Insurance type Covered democrat ID Randolph post(s) [employer] [id number] Social History Type Description Quantity Date Captured [...]
--- OUTSIDE RECORDS SUMMARY | 2024-09-16 16:06 | XMS_ITS | Referral Summary ---
Author Organization [facility] Address [address] [place] [address] Care Team Providers Care Decorative Engraver Name Role Phone Jennifer Holliday MD Primary Care Provid er Jennifer Holliday MD Unavailable [phone] Jeramy Lester MD Unavailable [phone] Karen Melendez MD Unavailable Alysia Ty MD Unavailable [phone] Reymundo Johnston MD Unavailable [phone] Soledad West MD Unavailable [phone] ADELAIDE Luciano IV, C Joseph Unavailable [phone] Vasile Mcmanus MD Unavailable Kurtis Ochoa MD Unavailable [phone] Hermes Hernandez MD Unavailable Juan C Montelongo MD Unavailable Sergey Spence MD Unavailable + Juhi Connolly NP Unavailable [phone] Jailyn Downey RN Unavailable [phone] Encounters Date Type Department Care Team Description 09/14/[address] [facility] Accountable Care Organization [address] [place] [address] Jenise Holloway LPN 09/03/[address] [facility] Medical [facility] Respiratory Care at [address] [address] Benita Giraldo NP 08/31/2024 11:10 AM NARCOTICS INVESTIGATOR Lab [address] [address] Iron deficiency anemia, unspecified iron deficiency anemia type; Vitamin D deficiency; Encounter for Medicare annual wellness exam; Mixed hyperlipidemia; Primary hypertension 08/31/2024 9:30 AM NARCOTICS INVESTIGATOR Office Visit [facility] Respiratory Care at [address] [address] Benita Giraldo NP Encounter for [...] osteoporosis without current pathological fracture 08/16/2024 [facility]phone [facility] [address] [place] [address] [address] [address] Franc Duarte II, MD 08/09/[address] [facility] Medical Group at [place] [address], [place] [address] Jennifer Holliday MD Referral Request 06/22/2024 3:45 PM NARCOTICS INVESTIGATOR Office Visit [facility] Medical [facility] at [address] [address] Emiliano Trinidad NP Bilateral acute [...] 03/18/2022 Assessment & Plan (09/06/2024 1:21 PM NARCOTICS INVESTIGATOR): Follow up with Edy Arthritis of right knee 02/05/2022 Assessment & Plan (03/24/2022 11:39 AM CDT): Patient appears to have a small effusion the knee and some reactive synovitis. Scheduled to see a weigher bulker in early April and who would be advisable to keep that appointment. It may be helpful to contact the weigher bulker let them know she is having acute [...] oxygen. Multifocal pneumonia 12/02/2020 Lesion of left [place] kidney 12/02/2020 Assessment & Plan (12/02/2020 11:11 PM CDT): Noted on CT scan. 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 Will consult Urology. 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 Mcmanus at [facility] on December 10. Patient has ecchymosis [...] 02/19/2020 Assessment & Plan (08/31/2024 9:46 AM NARCOTICS INVESTIGATOR): Labs ordered Assessment & Plan (02/11/2021 12:53 [...] 04/11/2018 Assessment & Plan (09/09/2023 8:21 AM NARCOTICS INVESTIGATOR): Patient had left thyroid nodule for almost [...] 03/29/2018 Assessment & Plan (09/06/2024 1:22 PM NARCOTICS INVESTIGATOR): Follow up with colletteaxin Sciatic pain 03/29/2018 Pleural mass 03/16/2018 Rib pain on right side 03/16/2018 Age-related osteoporosis wit hout current pathological fracture 06/23/2017 Assessment & Plan (09/06/2024 1:21 PM NARCOTICS INVESTIGATOR): Follow up with Dr Day Assessment & Plan (09/09/2023 8:21 AM NARCOTICS INVESTIGATOR): Osteoporosis with high-risk status post left hip [...] precautions Assessment & Plan (09/28/2017 9:37 PM NARCOTICS INVESTIGATOR): recent DEXA scan results And recent labs [...] months Assessment & Plan (06/23/2017 9:27 AM NARCOTICS INVESTIGATOR): Reviewed pt. Recent DEXA scan results And [...] 03/17/2017 Assessment & Plan (08/31/2024 9:46 AM NARCOTICS INVESTIGATOR): Labs ordered Assessment & Plan (03/17/2017 11:16 AM CDT): Check cbc Gastroesophageal reflux disease 08/24/2016 Overview (11/05/2016): ESOPHAGEAL REFLUX Assessment & Plan (09/02/2024 11:01 PM NARCOTICS INVESTIGATOR): Continue pantoprazole Assessment & Plan (12/02/2020 11:06 [...] the next regular appointment. Polymyalgia rheumatica ([facility]) 09/26/2014 Overview (11/05/2016): PMR - Polymyalgia rheumatica [...] Hyperlipidemia Assessment & Plan (08/31/2024 9:47 AM NARCOTICS INVESTIGATOR): Labs ordered Continue zetia and atorvastatin Assessment & Plan (03/17/2017 11:05 AM CDT): Lipid abnormalities are improving with treatment. Nutritional counseling was provided. Lipids will be reassessed 4mos. Hypertension 07/11/2012 Overview (11/05/2016): Hypertension Assessment & Plan (08/31/2024 9:47 AM NARCOTICS INVESTIGATOR): Stable continue Assessment & Plan (12/02/2020 11:06 [...] = 0.6 oz pur e alcohol) occasionally [facility] Utilities Answer Date Recorded In the past 12 months has [employer], gas, oil, or water [employer] threatened to shut off services in your [...] often do you attend chur ch or confucianism services? More than 4 times per year 02/25/2024 Do you belong to any clubs o r organizations such as oriental orthodox groups, unions, fraternal or athletic groups, [...] place to sleep or slept in a correction (including now)? No 12/10/2022 Housing Stability Vital [...] time in the past [address] [facility], were you homeless or living in a correction (including now)? No 02/25/2024 Comments No Sex and Gender Information Value Date Recorded Sex Assigned at Not on file Legal Sex Female 11:24 PM NARCOTICS INVESTIGATOR Gender Identity Female 02/03/2023 6:56 PM CDT Sexual Orientation Not on file Last Filed Vital Signs Vital Sign Reading Time Taken Comments Blood Pressure 128/82 08/31/2024 9:50 AM NARCOTICS INVESTIGATOR Pulse 82 08/31/2024 9:50 AM NARCOTICS INVESTIGATOR Temperature 36.2 C (97.2 F) 08/31/2024 9:50 AM NARCOTICS INVESTIGATOR Respiratory Rate 16 08/31/2024 9:50 AM NARCOTICS INVESTIGATOR Oxygen Saturation 93% 08/31/2024 9:50 AM NARCOTICS INVESTIGATOR Inhaled Oxygen Concentration - - Weight 67.1 kg (148 lb) 08/31/2024 9:50 AM NARCOTICS INVESTIGATOR Height 152.4 cm (5') 08/31/2024 9:50 AM NARCOTICS INVESTIGATOR Body Mass Index 28.9 08/31/2024 9:50 AM NARCOTICS INVESTIGATOR Plan of Treatment Not on file Goals Goal Patient Goal Type Associated Problems Recent Progress Patient-Stated? Author AMBROSIO General Goal - Patient schedules and keeps appointments with all recommended providers ACO Care Management On track(2024 4:08 PM NARCOTICS INVESTIGATOR) No Jono Boothe, RN Note: Problem: Potential [...] ACO Care Management On track(2024 4:08 PM NARCOTICS INVESTIGATOR) Jailyn Fischer RN Note: Problem: At Risk [...] URINALYSIS, MICROSCOPIC ONLY Routine 08/31/2024 12:18 PM NARCOTICS INVESTIGATOR Encounter for Medicare annual wellness exam ALBUMIN CREATININE RATIO, URINE Routine 08/31/2024 12:18 PM NARCOTICS INVESTIGATOR Primary hypertension URINALYSIS AND REFLEX TO MICROSCOPIC AND CULTURE Routine 08/31/2024 12:18 PM NARCOTICS INVESTIGATOR Encounter for Medicare annual wellness exam URINE CULTURE Routine 08/31/2024 12:18 PM NARCOTICS INVESTIGATOR EGFR Routine 08/31/2024 11:21 AM NARCOTICS INVESTIGATOR Encounter for Medicare annual wellness exam DIFFERENTIAL AUTO Routine 08/31/2024 11:21 AM NARCOTICS INVESTIGATOR Encounter for Medicare annual wellness exam CBC WITH AUTO DIFFERENTIAL Routine 08/31/2024 11:21 AM NARCOTICS INVESTIGATOR Encounter for Medicare annual wellness exam COMPREHENSIVE METABOLIC PANEL Routine 08/31/2024 11:21 AM NARCOTICS INVESTIGATOR Encounter for Medicare annual wellness exam LIPID PANEL Routine 08/31/2024 11:21 AM NARCOTICS INVESTIGATOR Mixed hyperlipidemia HEMOGLOBIN A1C Routine 08/31/2024 11:21 AM NARCOTICS INVESTIGATOR Encounter for Medicare annual wellness exam VITAMIN D 25 HYDROXY Routine 08/31/2024 11:21 AM NARCOTICS INVESTIGATOR Vitamin D deficiency IRON PROFILE W/ IBC Routine 08/31/2024 11:21 AM NARCOTICS INVESTIGATOR Iron deficiency anemia, unspecified iron deficiency anemia type POCT RAPID STREP Routine 06/22/2024 3:38 PM NARCOTICS INVESTIGATOR Bilateral acute serous otitis media, recurrence not specified DEXA AXIAL SKELETON BONE DENSITY 1 OR MORE SITES Schedule Routine, Read Routine (OP Routine) 01/08/2021 11:43 AM CDT Osteopenia of left hip from Last 3 Months or Most Recently Relevant to Health Maintenance Results * (ABNORMAL) Urinalysis reflex to microscopic and culture Urine, clean voided (08/31/2024 12:18 PM NARCOTICS INVESTIGATOR) Color, ur Yellow Yellow Comment:[facility] [address], [place] [address] Clarity, ur Turbid(A) Clear [facility] Comment:Testing performed [facility] [address], [place] [address] Specific gravity, ur 1.018 1.003 - 1.030 [facility] Comment:[facility] performed [facility] : [facility] [address], [place] [address] pH, urine 6.0 [facility] Comment: Interpretive Data U rine pH is affected by diet, medications, systemic acid-base disturbances, and renal tubular function. pH may affect urinary stone formation. For example, urine pH below 6.0 may help reduce the tendency for calcium phosphate stones and pH greater than 6.0 may reduce the tendency for uric acid stone formation. Source: [place] deeplocal Current Interpretive Data was last revised on 2017 Testing performed by: [facility], [address], [place] [address] Protein, ur ql Trace Negative [facility] Comment:Testing performed by : [facility], [facility] [place] [address] Glucose, ur ql Negative Negative [facility] Comment:Testing performed by : [facility], [address] [address] Ketones, ur Negative Negative [facility] CH Comment:Testing performed by : [facility], [facility] [place] [address] Bilirubin, ur Negative Negative [facility] CH Comment:Testing performed by : [facility], [address] [address] Blood, ur Negative Negative [facility] CH Comment:Testing performed by : [facility], [facility] [place] [address] Urobilinogen, ur <2.0 <2.0 mg/dL [facility] Comment:Testing performed by : [facility], [facility] [place] [address] Nitrite, ur Negative Negative [facility] Comment:Testing performed by : [facility], [facility] [place] [address] Leukocyte esterase, ur 2+(A) Negative [facility] CH Comment:Testing performed by : [facility], [facility] [place] [address] UA reflex comment Reflex to microscopic UA will be performed. DEONDRENER Comment:Testing performed by : [facility] [place] [address] Urine, clean voided 08/31/2024 12:18 PM NARCOTICS INVESTIGATOR 08/31/2024 12:18 PM NARCOTICS INVESTIGATOR Benita Giraldo NP LAB MICROBIOLOGY - GENERA L ORDERABLES Final Result STACEY ZAMBRANO [address] Department [place] [address] * (ABNORMAL) Albumin Creatinine Ratio, Urine (08/31/2024 12:18 PM NARCOTICS INVESTIGATOR) Albumin Ur 39.2 mg/L Comment: Interpretive Data No reference range established. Current interpretive data was last revised 2018. Creatinine Ur 99.0 mg/dL STACEY Comment: Interpretive Data No reference range established. Current interpretive data was last revised 2018. Albumin Creatinine Ratio, Ur 40(H) 1 - 29 mg/g [facility] Urine 08/31/2024 12:1 8 PM NARCOTICS INVESTIGATOR 08/31/2024 7:43 PM NARCOTICS INVESTIGATOR Benita Giraldo PRESS TENDER STAR SIGNAL LAB URINE ORDERABLES Shasta l Result Performing Organization Address [facility] Co de Phone Number STACEY [address] [facility] [employer] [place], [place] [id number] * (ABNORMAL) Urinalysis, microscopic only (08/31/2024 12:18 PM NARCOTICS INVESTIGATOR) WBC, ur 11-20(A) 0 - 5 /HPF Comment:Testing performed by : [facility], [place] [address] RBC, ur 0-2 0 - 2 /HPF [facility] Comment:Testing performed by : [facility], [place] [address] Epithelial cells, squamous, ur 1-5 0 - 5 /HPF [facility] Comment:Testing performed by : [facility], [place] [address] Bacteria, ur Trace(A) [facility] Comment:Testing performed by : [facility], [place] [address] Mucous, ur Present(A) [facility] Comment:Testing performed by : [facility], [place] [address] Hyaline casts, ur 6-10 0 - 10 /LPF [facility] Comment:Testing performed [facility] : [facility] [address], [place] [address] Culture Reflex Comment Reflex to urine culture will be performed. [facility] Comment:Testing performed by : [facility], [place] [address] Urine, clean voided 08/31/2024 12:18 PM NARCOTICS INVESTIGATOR 08/31/2024 2:19 PM NARCOTICS INVESTIGATOR Benita Giraldo PRESS TENDER STAR SIGNAL LAB URINE ORDERABLES Shasta l Result Performing Organization Address [facility]/ZIP Co de Phone Number STACEY [address] [facility] [place] [address] * (ABNORMAL) Urine culture Urine, clean voided (08/31/2024 12:18 PM NARCOTICS INVESTIGATOR) Report Final Report: Greater than or equal to 100,000 colonies/mL of Klebsiella pneumoniae Plus growth of clinically insignificant bacterial alena. (.) Comment:Testing performed by : [facility], [address] [place]., [address] Organism KLEBSIELLA PNEUMONIAE STACEY Organism PLUS GROWTH OF CLINICALLY INSIGNIFICANT ALENA. STACEY Urine, clean voided 08/31/2024 12:18 PM NARCOTICS INVESTIGATOR 08/31/2024 5:55 PM NARCOTICS INVESTIGATOR Narrative STACEY - 09/04/2024 6:10 AM NARCOTICS INVESTIGATOR Urine culture reflexed based upon urinalysis results. Testing performed by [facility] Microbiology Laboratory ([phone]) Organism Antibiotic Method Susceptibility Klebsiella pneumoniae Ampicillin [...] Klebsiella pneumoniae Cefdinir INTERPRETATION Susceptible Benita Giraldo PRESS TENDER STAR SIGNAL LAB MICROBIOLOGY - GENERA L ORDERABLES Final Result STACEY ZAMBRANO [address] Department [place] [address] * eGFR (08/31/2024 11:21 AM NARCOTICS INVESTIGATOR) eGFR 74 >=60 mL/min/1. 73 m2 Comment: [...] was last reviewed 2021. Testing [facility] [address], [place] [address] Blood 08/31/2024 11:2 1 AM NARCOTICS INVESTIGATOR 08/31/2024 11:38 AM NARCOTICS INVESTIGATOR us Benita Giraldo NP LAB BLOOD ORDERABLES Shasta murray Result [facility] [address] Department [place] [address] * (ABNORMAL) Differential, auto (08/31/2024 11:21 AM NARCOTICS INVESTIGATOR) Neutrophil abs 6.3 1.5 - 6.5 K/cumm Comment:Testing performed [facility] : [facility] [address], [place] [address] Imm gran abs 0.0 0.0 - 0.1 K/cumm [facility] Comment:Testing performed by : [facility] [address], [place] [address] Lymphocyte abs 1.1 0.8 - 3.3 K/cumm [facility] Comment:Testing performed by : [facility] [address], [place] [address] Monocyte abs 0.9(H) 0.2 - 0.8 K/cumm [facility] Comment:Testing performed by : [facility] [address], [place] [address] Eosinophil abs 0.3 0.0 - 0.5 K/cumm [facility] Comment:Testing performed by : [facility] [address], [place] [address] Basophil abs 0.1 0.0 - 0.1 K/cumm [facility] Comment:Testing performed by : [facility], [address] [place] [address] Neutrophil pct 72.5 % [facility] Comment: Interpretive Data Percent cell count reference ranges are not reported, since discordance with absolute values may lead to misinterpretation of CBC data. Current Interpretive Data was last revised on 2017. Testing performed by: [facility], [place] [address] [address] Imm gran pct 0.3 % [facility] Comment: Interpretive Data Percent cell count reference ranges are not reported, since discordance with absolute values may lead to misinterpretation of CBC data. Current Interpretive Data was last revised on 2017. Testing performed by: [facility], [place] [address] Lymphocyte pct 12.8 % [facility] Comment: Interpretive Data Percent cell count reference ranges are not reported, since discordance with absolute values may lead to misinterpretation of CBC data. Current Interpretive Data was last revised on 2017. Testing performed [facility]: [facility] [address], [place] [address] Monocyte pct 10.8 % [facility] Comment: Interpretive Data Percent cell count reference ranges are not reported, since discordance with absolute values may lead to misinterpretation of CBC data. Current Interpretive Data was last revised on 2017. Testing performed by: [facility], [place] [address] Eosinophil pct 2.9 % [facility] Comment: Interpretive Data Percent cell count reference ranges are not reported, since discordance with absolute values may lead to misinterpretation of CBC data. Current Interpretive Data was last revised on 2017. Testing performed [facility]: [facility] [address], [place] [address] Basophil pct 0.7 % [facility] Comment: Interpretive Data Percent cell count reference ranges are not reported, since discordance with absolute values may lead to misinterpretation of CBC data. Current Interpretive Data was last revised on 2017. Testing performed [facility]: [facility] [address], [place] [address] Blood 08/31/2024 11:2 1 AM NARCOTICS INVESTIGATOR 08/31/2024 11:21 AM NARCOTICS INVESTIGATOR Benita Giraldo PRESS TENDER STAR SIGNAL LAB BLOOD ORDERABLES Shasta l Result Performing Organization Address City/[facility]/ZIP Co de Phone Number STACEY [address] [facility] [place] [address] * Iron profile w/ IBC (08/31/2024 11:21 AM NARCOTICS INVESTIGATOR) Pathologist [facility] Iron 65 35 - 145 mcg/dl TIBC 285 250 - 400 mcg/dL [facility] Transferrin saturation 23 20 - 50 % CERNER Blood 08/31/2024 11:2 1 AM NARCOTICS INVESTIGATOR 08/31/2024 9:12 PM NARCOTICS INVESTIGATOR Benita Giraldo PRESS TENDER STAR SIGNAL LAB BLOOD ORDERABLES Shasta l Result Performing Organization Address [facility] Co de Phone Number [facility] [address] Department [place] [address] * (ABNORMAL) CBC with auto differential (08/31/2024 11:21 AM NARCOTICS INVESTIGATOR) [facility] WBC 8.7 3.8 - 9.9 K/cumm Comment:Testing performed by : [facility] [place] [address] Hgb 13.1 11.9 - 15.5 g/dL [facility] Comment:Testing performed by : [facility] [place] [address] Hct 39.8 35.6 - 45.5 % [facility] Comment:Testing performed by : [facility] [place] [address] Plt 300 150 - 400 K/cumm [facility] Comment:Testing performed by : [facility] [place] [address] MPV 10.6 9.1 - 12.3 fL [facility] Comment:Testing performed [facility] : [facility] [address], [place] [address] RBC 4.16 3.90 - 5.20 M/cumm [facility] Comment:Testing performed [facility] : [facility] [address], [place] [address] MCV 95.7 81.3 - 96.4 fL [facility] Comment:Testing performed by : [facility] [place] [address] MCH 31.5 27.1 - 33.3 pg STACEY Comment:Testing performed by : [facility], [place] [address] MCHC 32.9 32.3 - 35.7 g/dL STACEY Comment:Testing performed by : [facility], [facility] [place] [address] RDW CV 14.4 11.1 - 14.9 % STACEY Comment:Testing performed by : [facility], [place] [address] RDW SD 51.0(H) 35.7 - 48.1 fL STACEY Comment:Testing performed by : [facility], [facility] [place] [address] NRBC abs 0.00 0.00 - 0.01 K/cumm STACEY Comment:Testing performed by : [facility], [facility] [place] [address] Blood 08/31/2024 11:2 1 AM NARCOTICS INVESTIGATOR 08/31/2024 11:21 AM NARCOTICS INVESTIGATOR Benita Giraldo PRESS TENDER STAR SIGNAL LAB BLOOD ORDERABLES Shasta l Result Performing Organization Address [facility] Co de Phone Number STACEY [address] [facility] [place] [address] * Vitamin D 25 hydroxy (08/31/2024 11:21 AM NARCOTICS INVESTIGATOR) Pathologist [facility] Vitamin D 25-OH 58 30 - 80 ng/mL Blood 08/31/2024 11:2 1 AM NARCOTICS INVESTIGATOR 08/31/2024 9:03 PM NARCOTICS INVESTIGATOR Benita Giraldo PRESS TENDER STAR SIGNAL LAB BLOOD ORDERABLES Shasta l Result Performing Organization Address City/[facility] Co de Phone Number STACEY [address] [facility] [place] [address] * (ABNORMAL) Hemoglobin A1c (08/31/2024 11:21 AM NARCOTICS INVESTIGATOR) Pathologist [facility] Hgb A1C 5.8(H) 4.0 - 5.6 % Estimated Average Glucose 120 mg/dL STACEY ZAMBRANO Comment: The ADA recommends reporting an estimated Average Glucose (eAG) with all Hemoglobin A1c results using the equation derived from a study of 507 normal and diabetic adults. Minority populations were underrepresented and children were not included. (Diabetes Care 31:8555-4190, 2008). The eAG is not equivalent to a fasting glucose. Blood 08/31/2024 11:2 1 AM NARCOTICS INVESTIGATOR 08/31/2024 9:16 PM NARCOTICS INVESTIGATOR us Benita Giraldo NP LAB BLOOD ORDERABLES Shasta l Result STACEY ZAMBRANO [address] Department of Laboratories [place], [place] [id number] * Lipid panel (08/31/2024 11:21 AM NARCOTICS INVESTIGATOR) Cholesterol 139 30 - 199 mg/dL Comment: [...] last revised on 2018. Testing performed by: [facility], [facility] [address], [place] [address] Triglycerides 85 <=149 mg/dL STACEY ZAMBRANO Comment: [...] last revised on 2018. Testing performed by: [facility], [place] [address] HDL 65 >=40 mg/dL STACEY Comment: Interpretive [...] last revised on 2018. Testing performed by: [facility], [place] [address] LDL, calculated 58 <=129 mg/dL STACEY Comment: [...] last revised on 2024. Testing performed by: [facility] [facility], [place] [address] Non-HDL Cholesterol 74 mg/dL STACEY Comment: Interpretive [...] last revised on 2018. [facility] [address], [place] [address] Chol/HDL ratio 2 CERNER CH Comment:[facility], [place] [address] Blood 08/31/2024 11:2 1 AM NARCOTICS INVESTIGATOR 08/31/2024 11:21 AM NARCOTICS INVESTIGATOR us Benita Giraldo NP LAB BLOOD ORDERABLES Shasta murray Result [facility] [address] Department of Laboratories [place], [place] [id number] * Comprehensive metabolic panel (08/31/2024 11:21 AM NARCOTICS INVESTIGATOR) Sodium 143 135 - 145 mmol/L Comment:[facility] [address], [place] [address] Potassium, pl 4.2 3.3 - 4.9 mmol/L CERNER CH Comment:[facility] [address], [place] [address] Chloride 107 97 - 110 mmol/L CERNER CH Comment:[facility] performed [facility] : [facility] [address], [place] [address] CO2 27 22 - 32 mmol/L CERNER CH Comment:[facility] performed [facility] [address], [place] [address] Anion gap 9 2 - 15 mmol/L CERNER CH Comment:[facility] [address], [place] [address] BUN 18 6 - 25 mg/dL CERNER CH Comment:[facility] [address], [place] [address] Creatinine 0.79 0.60 - 1.10 mg/dL CERNER CH Comment:[facility] [address], [place] [address] Glucose 117 70 - 199 mg/dL CERNER [...] was last revised 2022. Testing performed by: [facility] [place] [address] Calcium 9.9 8.5 - 10.3 mg/dL CERNER Comment:[facility] performed [facility] [address], [place] [address] Bilirubin, total 0.6 0.1 - 1.2 mg/dL CERNER Comment:Testing performed [facility] : [facility] [address], [place] [address] Protein, pl 7.2 6.5 - 8.5 g/dL CERNER Comment:[facility] performed [facility] [address], [place] [address] Albumin 3.8 3.5 - 5.0 g/dL CERNER Comment:Testing performed [facility] : [facility] [address], [place] [address] Alk phos 106 40 - 130 Units/L CERNER Comment:Testing performed [facility] : [facility] [address], [place] [address] ALT 25 7 - 45 Units/L CERNER Comment:[facility] performed [facility] [address], [place] [address] AST 26 10 - 45 Units/L CERNER Comment:Testing performed by : [facility] [place] [address] Blood 08/31/2024 11:2 1 AM NARCOTICS INVESTIGATOR 08/31/2024 11:21 AM NARCOTICS INVESTIGATOR Benita Giraldo NP LAB BLOOD ORDERABLES Shasta l Result [facility] [address] [place] [address] * POCT rapid strep A (06/22/2024 3:38 PM NARCOTICS INVESTIGATOR) [facility] Rapid Strep A, POC Negative Negative Swab 06/22/2024 3:38 PM NARCOTICS INVESTIGATOR Emiliano Trinidad NP POINT OF CARE TEST ORDERABLES F inal Result * Dexa Axial Skeleton Bone Density 1 or 2 Site (01/08/2021 11:43 AM CDT) Anatomical Region Laterality Modality Body N/A Other 01/08/2021 8:03 PM CDT Narrative 01/08/2021 8:04 PM CDT EXAM DESCRIPTION: DEXA AXIAL SKELETON BONE DENSITY 1 OR MORE SITES REASON FOR STUDY: Post-menopausal female, screening for osteoporosis. Manager Investment Banking/Model: [employer] SL (S/N [id number]) CLINICAL INFORMATION: Current height: 63.5 inches Maximum [...] by Reymundo Moss M.D. AB: Report ID: [id number] Reading Location: [id number] Procedure Note Reymundo Moss MD - 01/08/2021 EXAM DESCRIPTION: DEXA AXIAL SKELETON BONE DENSITY 1 OR MORE SITES REASON FOR STUDY: Post-menopausal female, screening for osteoporosis. Manager Investment Banking/Model: [employer] SL (S/N [id number]) CLINICAL INFORMATION: Current height: 63.5 inches Maximum [...] by Reymundo Moss M.D. AB: Report ID: [id number] Reading Location: [id number] Malini Day MD IMG DXA PROCEDURES Final Result from Last 3 Months or Most Recently Relevant to Health Maintenance Insurance [facility] Advance Directives For more information, please contact: [phone] * Full Code (Latest Code Status on [...] 10:13 AM 03/08/2018 2:58 AM Care Teams Decorative Engraver Relationship Specialty Start Date End Date Jennifer Holliday MD [address] [facility] [address] [place], [place] [id number] PCP - General 10/30/16 Jennifer Holliday MD [address] [facility] [address] [place] [address] PCP - Essence Attributed PCP 08/02/13 Jeramy Lester MD [address] [facility] [address] [place] [address] Surgeon Cardiothoracic Surgery 03/16/19 Karen Melendez MD [address] [place] [address] Consulting Physician Rheumatology 05/22/19 Alysia Ty MD [address] [facility] [address] [place], [place] [id number] Consulting Physician Gastroenterology 05/22/19 Reymundo Johnston MD [address] [place] [address] Referring Physician Gynecology 12/03/20 Soledad West MD [address] [place] [address] Consulting Physician Dermatology 10/29/21 Dusty Luciano IV, AUD [address] [facility] [employer] [place] [address] Chief Mechanical Officer 10/29/21 Vasile Mcmanus MD [address] [facility] [employer] [place] [address] Surgeon Vascular Surgery 10/29/21 Kurtis Ochoa MD [address] [facility] [address] [place] [address] Referring Physician Orthopedic Surgery 07/06/22 Hermes Hernandez MD [address] [facility] [address] [facility] [address] [place] [address] Consulting Physician Neurology 08/06/22 Juan C Montelongo MD [address] [place] [address] Referring Physician Otolaryngology 10/26/23 Sergey Spence MD [address] [facility] [address] [place] [address] Referring Physician Gastroenterology 03/09/24 Juhi Connolly NP [address] [place] [address] [address] [place] [address] Neurology 04/10/24 Jailyn Downey RN [address] [place] [address] [address] [place] [address] Provider Relations Advocate 06/16/24
--- OUTSIDE RECORDS SUMMARY | 2024-09-16 16:06 | XMS_ITS | Clinical Summary ---
Author Organization [facility] Address [address] [facility] [address] Care Team Providers Care Telesales Advisor Name Role Phone Jennifer Holliday MD Primary Care Provid er Source Comments [facility],non-owned Affiliates and Associated Physician Practices is amultiple site organization consisting of ambulatory clinics and hospital sitesin [place], [place], [place] and [place]. This disclosure is being madepursuant to the Care Everywhere program and may not contain all information available regarding this patient. Last updated 18.LendingStandard Allergies No known active allergies Medications * [...] fluticasone propionate (FLONASE) 50 MCG/ACT nasal spray [place] 2 Sprays into each nostril once daily [...] Comments Blood Pressure 117/84 08/25/2016 11:55 AM OSTEOLOGIST Pulse 99 08/25/2016 11:55 AM OSTEOLOGIST Temperature 36.4 C (97.5 F) 08/15/2016 7:07 AM OSTEOLOGIST Respiratory Rate 18 08/15/2016 7:07 AM OSTEOLOGIST Oxygen Saturation 92% 08/15/2016 7:07 AM OSTEOLOGIST Inhaled Oxygen Concentration - - Weight 70.3 kg (155 lb) 08/25/2016 11:55 AM OSTEOLOGIST Height 164.5 cm (5' 4.75 ) 08/25/2016 11:[address] Body Mass Index 25.99 08/25/2016 11:55 AM OSTEOLOGIST Plan of Treatment Health Maintenance Due Date [...] this topic Medical Devices Implanted Type Area Flight Line Service Attendant Device Identifier Shelf Expiration Date Model / Serial / Lot Human Allograft Tissu Implanted:Qty : 1 on 01/06/2016 by Reymundo Shelley MD at [facility] Musculoskeletal [employer]plant [employer] [id number] / [id number] / Mesh Micro 6 X 8 Pc Implanted:Qty : 1 on 08/12/2016 by Reymundo Shelley MD at [facility] N/A: Abdomen [employer] 04/02/2017 BLM-[id number] / / [id number] Advance Directives * Full Code (Latest Code Status on File) Date Activated Date Inactivated Comments 08/12/2016 7:42 PM 08/15/2016 5:02 PM * Full Code Date Activated Date Inactivated Comments 01/06/2016 1:29 PM 01/08/2016 12:30 PM Care Teams Telesales Advisor Relationship Specialty Start Date End Date Jennifer Holliday MD PCP - General Internal Medicine 10/10/15
--- OUTSIDE RECORDS SUMMARY | 2024-09-16 16:06 | XMS_ITS | Encounter Summary ---
Author Organization [facility] Address [address] [place] [address] Phone Care Team Providers Care Drapery Supervisor Name Role Phone Jennifer Holliday MD Primary Care Provid er Jennifer Holliday MD Unavailable [phone] Gentry Zamora MD Unavailable Brien Sue MD Unavailable Zakiya Shaikh MD PhD Unavailable [phone] Jeramy Lester MD Unavailable Karen Melendez MD Unavailable Alysia Ty MD Unavailable [phone] Lucy Reyes RN Unavailable [phone] Reymundo Johnston MD Unavailable Natasha Holloway MA Unavailable [phone] Romie Mccord DO Unavailable Soledad West MD Unavailable [phone] ADELAIDE Luciano IV, C Joseph Unavailable Vasile Mcmanus MD Unavailable Lucy Reyes RN Unavailable [phone] Jerry Mahan MD Unavailable Lynn Edwards RN Unavailable [phone] Kurtis Ochoa MD Unavailable [phone] Eddie Munroe MD Unavailable [phone] Hermes Hernandez MD Unavailable Jessy Mckinney RN Unavailable Juan C Montelongo MD Unavailable Jono Boothe RN Unavailable [phone] Sergey Spence MD Unavailable + Juhi Connolly NP Unavailable [phone] Jailyn Downey RN Unavailable [phone] Encounter Details Date Type Department Care Team [...] on file Legal Sex Female 11:24 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 Gender Identity Female 02/03/2023 6:56 PM CDT [...] COVID: Suspected 07/02/2022 07/02/2022 07/02/2022 12:42 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 documented as of this encounter Care Teams Drapery Supervisor Relationship Specialty Start Date End Date Jennifer Holliday MD [address] [facility] [address], [place] [id number] PCP - General 10/30/16 Jennifer Holliday MD [address] [facility] [address] [place] [id number] PCP - Essence Attributed PCP 08/02/13 [place] [address] [facility] [address] [place] [address] Risk Mgr Pulmonary Disease 03/25/18 02/03/23 Brien Sue MD [address] [place] [address] Medical Oncologist/Hematologi [facility] Oncology 03/25/18 07/05/22 Zakiya Shaikh MD PhD [address] [place] [address] Medical Oncologist/Hematologi Medical Oncology 02/22/19 02/03/23 Jeramy Lester MD [address] [place] [address] Surgeon Cardiothoracic Surgery 03/16/19 Karen Melendez MD [address] [place] [address] Consulting Physician Rheumatology 05/22/19 Alysia Ty MD [address] [place] [address] Consulting Physician Gastroenterology 05/22/19 Lucy Reyes, ATIYA [address] [facility] [address] [place] [address] Log Processor Operator 11/26/20 01/05/21 Reymundo Johnston MD [address] [facility] [address] [place] [address] Referring Physician Gynecology 12/03/20 Natasha Holloway MA [address] [place] [address] [address] [place] [address] ACO Care City Designer 10/06/21 10/14/21 Romie Mccord DO [address] [place] [address] [address] [place] [address] Consulting Physician Urology 10/29/21 02/03/23 Soledad West MD [address] [facility] [address] [place] [address] Consulting Physician Dermatology 10/29/21 Dusty Luciano IV, AUD [address] [place] [address] Plumbing Designer 10/29/21 Vasile Mcmanus MD [address] [address] Surgeon Vascular Surgery 10/29/21 Lucy Reyes RN [address] [place] [address] [address] [place] [address] Log Processor Operator 02/10/22 03/10/22 [place] [address] [facility] [address] [place] [address] Surgeon Orthopedic Surgery 02/25/22 07/05/22 Lynn Edwards RN [address] [place] [address] [address] [place] [address] Log Processor Operator 06/18/22 07/15/22 Kurtis Ochoa MD [address] [facility] [address] [facility] [address] [place], [place] [address] Referring Physician Orthopedic Surgery 07/06/22 Eddie Munroe MD [address] [facility] [address] [place] [address] Consulting Physician Neurosurgery 07/06/22 02/03/23 Hermes Hernandez MD [address] [place] [address] Consulting Physician Neurology 08/06/22 Jessy Mckinney RN [address] [place] [address] [address] [place] [address] Log Processor Operator 12/10/22 01/06/23 Juan C Montelongo MD [address] [place] [address] Referring Physician Otolaryngology 10/26/23 Jono Boothe RN [address] [place] [address] [address] [place] [address] Log Processor Operator 02/25/24 06/15/24 Sergey Spence MD [address] [facility] [address] [facility] [address] [place] [address] Referring Physician Gastroenterology 03/09/24 Juhi Connolly, EDILMA [address] [place] [address] [address] [place] [address] Neurology 04/10/24 Jailyn Downey, ATIYA [address] [place] [address] [address] [place] [address] Log Processor Operator 06/16/24 documented as of this encounter
--- OUTSIDE RECORDS SUMMARY | 2024-09-16 16:06 | XMS_ITS | Continuity of Care Document ---
Author Organization [facility] Address [address] [place] [address] Phone Care Team Providers Care Car Scrubber Name Role Phone Roberta Valenzuela Unavailable Unavailab [...] route every day 10 MG - Active duloxetine 60 mg capsule,delayed release take 1 capsule by oral route every day 60 MG - Active folic acid 1 mg tablet take 1 tablet by oral route every day 1 MG - Active levothyroxine 50 mcg tablet take 1 tablet by oral route every day 50 MCG - Active cyclobenzaprine 10 mg tablet take 1 tablet by oral route 2 times every day 10 MG - Active vitamin E 400 unit capsule take 1 capsule by oral route every day 1 capsule - Active Vitamin B-12 1,000 mcg tablet take 1 tablet by oral route every day 1 tablet - Active ferrous sulfate 325 mg (65 mg iron) tablet take 1 tablet by oral route every day 1 tablet - Active Rexulti 0.5 mg tablet take 1 tablet by oral route every day 0.5 MG - Active carvedilol 3.125 mg tablet take 1 tablet by oral route 2 times every day with food 3.125 MG - Active rivastigmine 4.6 mg/24 hour transdermal patch apply 1 patch by transdermal route every day . Do not apply to same area more than once every 14 days. 4.6 MG - Active atorvastatin 10 mg tablet take 1 tablet by oral route every day 10 MG - Active amlodipine 5 mg tablet take 1 tablet by oral route every day 5 MG - Active amiodarone 200 mg tablet [...] No Longer Active Procedures Procedure Date OFFICE [id number]-[id number]-[id number] OFFICE [id number]-[id number] BODY MASS INDEX DOCD SYST BP >= 140 MM HG6 IT DIAST BP >= 90 MM HG OFFICE ESZYN-DFB-[id number] BODY MASS INDEX DOCD SYST BP GE 130 - 139MM HG DIAST BP >= 90 MM HG OFFICE [id number] BODY MASS INDEX DOCD SYST BP >= 140 MM HG6 IT DIAST BP >= 90 MM HG OFFICE MUKPR-ZYR-YAZIJISG BODY MASS INDEX DOCD SYST BP >= 140 MM HG6 IT DIAST BP >= 90 MM HG TISSUE EXAM BY PATHOLOGIST SPECIAL STAINS UPPER GI ENDOSCOPY BIOPSY DILATE ESOPHAGUS UNGUIDED OFFICE [id number]-KNB-KYUQHUSR BODY MASS INDEX DOCD SYST BP >= 140 MM HG6 IT DIAST BP 80-89 MM HG FERRITIN LEVEL HEMATOCRIT (HCT) HEMOGLOBIN (HGB) TIBC, & % SATURATION IRON (FE), TOTAL ROUTINE VENIPUNCTURE OFFICE KRYSA-GYG-[id number] BODY MASS INDEX DOCD SYST BP >= [...] Diagnoses Date Provider Providers Copied on Encounter [facility], [address], [place], [place], [address] , tel: [phone] [facility] No Information 4 Terrence Granados. [address], [place], [address] , [place]. tel: [phone] OFFICE BAAIQ-MAF-OE PANDED [facility], [address], [place], [place], [address] , tel: [phone] [facility] Follow up (chief complaint) Anemia, unspecifiedGastro esophageal reflux disease, esophagitis presence not specifiedIncontin ence of feces, unspecified fecal incontinence type 4 Terrence Granados. [address], [place], [address] , [place]. tel: [phone] Referring Provider: Jennifer Holliday, [address] [facility] [address], [place], [address] . tel:[phone] [facility], [address], [place], [place], [address] , [place] tel: [phone] [facility] No Information 4 Terrence Granados. [address], [place], [address] , [place]. tel: [phone] [facility], [address], [place], [place], [address] , [place] tel: [phone] [facility] No Information 4 Terrence Granados. [address], [place], [address] , [place]. tel: [phone] [facility], [address], [place], [place], [address] , [place] tel: [phone] [facility] No Information 4 Terrence Granados. [address], [place], [address] , [place]. tel: [phone] OFFICE VJXDB-ATY-ZW [facility], [address], [place], [place], [address] , [place] tel: [phone] [facility] annual (chief complaint) Incontinence of feces, unspecified fecal incontinence typeGastroesophag eal reflux disease, esophagitis presence not specifiedAnemia, unspecified 4 Terrence Granados. [address], [place], [address] , [place]. tel: [phone] Referring Provider: [address] [facility] [address], [place], [address] . tel:[phone] OFFICE SZBFA-MDV-ZV [facility], [address], [place], [place], [address] , tel: [phone] [facility] 6 month follow up (chief complaint) Gastroesophageal reflux disease, esophagitis presence not specifiedIncontin ence of feces, unspecified fecal incontinence type Sep-2 8-202 3 Terrence Granados. [address], [place], [address] , [place]. tel: [phone] Referring Provider: [address] [facility] [address], [place], [address] . tel:[phone] OFFICE NEEUB-JFY-RY [facility], [address], [place], [place], [address] , [place] tel: [phone] [facility] Follow up (chief complaint)A brooke reflux (chief complaint) Gastroesophageal reflux disease, esophagitis presence not specifiedRegurgit ation of foodIncontinence of feces, unspecified fecal incontinence type 3 Terrence Granados. [address], [place], [address] , [place]. tel: [phone] Referring Provider: Roberta Ocampo, [address] [place] [address], [address] . tel:[phone] OFFICE NAMAQ-NUS-NR [facility], [address], [place], [place], [address] , [place] tel: [phone] [facility] Medication refill (chief complaint) Incontinence of feces, unspecified fecal incontinence typeGastroesophag eal reflux disease, esophagitis presence not specifiedRegurgit ation of food 2 Terrence Granados. [address] [place] [address], [id number] , [place]. tel: [phone] Referring Provider: Jennifer Holliday, [address] [facility] [address], [place], [address] . tel:[phone] [facility], [address], [place], [place], [address] , [place] tel: [phone] [facility] No Information 0 Karson Hatfield. [address] [place] [address], [id number] , [place]. tel: [phone] Referring Provider: Tonio Holliday, [address] [place] [address], [place], [address] . tel:[phone] [facility], [address], [place], [place], [address] , tel: [phone] [facility] No Information 0 Bialecki Eldad. [address] [place], [place], [address] , . tel: [phone] Referring Provider: [address] [facility] [address], [place], [address] . tel:[phone] OFFICE ONSBU-DCB-WA TAILED [facility], [address], [place], [place], [address] , tel: [phone] [facility] Dysphagia (chief complaint) Incontinence of feces, unspecified fecal incontinence typeAnemia, unspecified 0 Bialecki Eldad. [address] [place] [address], [id number] , . tel: [phone] Referring Provider: [address] [facility] [address], [place], [address] . tel:[phone] OFFICE EBFXN-TEY-NJ PAND [facility], [address], [place], [place], [address] , tel: [phone] [facility] 3 month follow up (chief complaint) Incontinence of feces, unspecified fecal incontinence typeAnemia, unspecified 9 Terrence Granados. [address] [place] [address], [id number] , . tel: [phone] Referring Provider: [address] [facility] [address], [place], [address] . tel:[phone] [facility], [address], [place], [place], [address] , tel: [phone] [facility] Anemia (chief complaint) Weakness of both upper extremitiesDiarrh ea, unspecified typeAnemia, unspecified 9 Bialecki Eldad. [address] [place] [address], [id number] , [place]. tel: [phone] Referring Provider: Alsyia Miles, [address] [place] [address], [place], [address] . tel:[phone] [facility], [address], [place], [place], [address] , [place] tel: [phone] [facility] Anemia (chief complaint) Anemia, unspecified 9 Bialecki Eldad. [address] [place] [address], [id number] , [place]. tel: [phone] Referring Provider: Alysia Miles, [address] [place] [address], [place], [address] . tel:[phone] [facility], [address], [place], [place], [address] , [place] tel: [phone] [facility] No Information 9 Bialecki Eldad. [address] [place] [address], [id number] , [place]. tel: [phone] [facility], [address], [place], [place], [address] , [place] tel: [phone] [facility] No Information 9 Bialecki Eldad. [address] [place] [address], [id number] , [place]. tel: [phone] Referring Provider: Jennifer Holliday, [address] [place] [address] [address], [place], [address] . tel:[phone] [facility], [address], [place], [place], [address] , [place] tel: [phone] [facility] Anemia (chief complaint) Anemia, unspecified 9 Bialecki Eldad. [address] [place] [address], [id number] , [place]. tel: [phone] Referring Provider: Alysia Miles, [address] [place], [address] . tel:[phone] [facility], [address], [place], [place], [address] , [place] tel: [phone] [facility] Anemia, unspecified type 9 Terrence Shennifer. [address] [place] [address], [id number] , [place]. tel: [phone] [facility], [address], [place], [place], [address] , [place] tel: [phone] [facility] 6-8 week follow up (chief complaint) Incontinence of feces, unspecified fecal incontinence type 9 Bialecki Eldad. [address] [place] [address], [id number] , [place]. tel: [phone] Referring Provider: Deysi Proctor, [address] [facility] [address], [place], [address] . tel:[phone] [facility], [address], [place], [place], [address] , [place] tel: [phone] [facility] Incontinence of feces, unspecified fecal incontinence typeGastroesophag eal reflux disease, esophagitis presence not specified 9 Bialecki Eldad. [address] [place] [address], [id number] , [place]. tel: [phone] Referring Provider: Jennifer Holliday, [address] [facility] [address], [place], [address] . tel:[phone] [facility], [address], [place], [place], [address] , [place] tel: [phone] [facility] Incontinence of feces, unspecified fecal incontinence typeAcute conjunctivitis of right eye, unspecified acute conjunctivitis typeHeartburn 9 Ocampo Roberta. [address] [place] [address], [id number] , [place]. tel: [phone] Referring Provider: [address] [facility] [address] [place] [address], [address] . tel:[phone] [facility], [address], [place], [address] , tel: [phone] [facility] Gastroesophageal reflux disease, esophagitis presence not specifiedAnemia, unspecified type 8 Terrence Granados. [address] [place] [address], [id number] , . tel: [phone] Referring Provider: [address] [facility] [address], [place], [address] . tel:[phone] [facility], [address], [place], [place], [address] , tel: [phone] [facility] Anemia, unspecified typeGastroesophag eal reflux disease, esophagitis presence not specifiedAbnormal liver diagnostic imaging Terrence rGanados. [address] [place] [address], [id number] , [place]. tel: [phone] Referring Provider: [address] [facility], [place], [address] . tel:[phone] [facility], [address], [place], [place], [address] , tel: [phone] [facility] Diarrhea, unspecified typeIncontinence of feces, unspecified fecal incontinence typePharyngoesoph ageal dysphagia 7 Bialecki Eldad. [address] [place] [address], [id number] , [place]. tel: [phone] Referring Provider: [address] [facility] [address], [place], [address] . tel:[phone] [facility], [address], [place], [place], [address] , tel: [phone] [facility] Anemia, unspecified type 6 Bialecki Eldad. [address] [place] [address], [id number] , [place]. tel: [phone] [facility], [address], [place], [place], [address] , [place] tel: [phone] [facility] Gastroesophageal reflux disease, esophagitis presence not specifiedRegurgit ationDyspnea on effortShortness of breath 6 Karson Hatfield. [address] [place] [address], [address], [place], [place], [address] , [place]. tel: [phone] Referring Provider: Alysia Miles, [address] [facility] [address], [place], [address] . tel:[phone] Family History Family Member Type Diagnosis Age At Onset No Information Payers Payer name Insurance type Covered republican ID Authoriza tion(s) No Information Social History [...] were normal. Dr. Valente referred pt to milk processing worker, has appt end of March. Denies blood [...] Information Instructions Date Instruction Additional Infor mation Continue with your c urrent medicationsMonitor your diet and avoid foods that increase your symptoms Related to Gastroesophageal reflux disease, esophagitis presence not specified as above Related to Incon tinence of feces, unspecified fecal incontinence type Follow up in the office in 6 [...]
--- OUTSIDE RECORDS SUMMARY | 2024-09-16 16:06 | XMS_ITS | Encounter Summary ---
Author Organization [facility] Healthcare Address [address] [place] [address] Care Team Providers Care Head Of Biology Name Role Phone Jennifer Holliday MD Primary Care Provid er Jennifer Holliday MD Unavailable [phone] Gentry Zamora MD Unavailable Brien Sue MD Unavailable Zakiya Shaikh MD PhD Unavailable [phone] Jeramy Lester MD Unavailable Karen Melendez MD Unavailable Alysia Ty MD Unavailable Reymundo Johnston MD Unavailable Natasha Holloway MA Unavailable Romie Mccord DO Unavailable Soledad West MD Unavailable Ankita REYNOLDS, Dusty BRYSON Unavailable Vasile Mcmanus MD Unavailable Lucy Reyes RN Unavailable [phone] Jerry Mahan MD Unavailable [phone] Lynn Edwards RN Unavailable [phone] Kurtis Ochoa MD Unavailable [phone] Eddie Munroe MD Unavailable [phone] Hermes Hernandez MD Unavailable Jessy Mckinney RN Unavailable [phone] Juan C Montelongo MD Unavailable Jono Boothe RN Unavailable [phone] Sergey Spence MD Unavailable + Juhi Connolly NP Unavailable [phone] Jailyn Downey RN Unavailable [phone] Reason for Visit * Reason Onset Date Comments Scheduling Appointments 02/27/2021 Confirmi ng mammogram appt Encounter Details Date Type Department Care Team (Late st Contact Info) Description 02/27/2021 Telephone [facility] [address] [place] [address] Kely Pizano, RT Scheduling Appointments ( Confirming [...] than three times a week 11/27/2020 Attends [employer] Services Not on file 11/27 Active Member [...] on file Legal Sex Female 11:24 PM SENIOR PORTFOLIO MANAGER Gender Identity Female 02/03/2023 6:56 PM CDT [...] COVID: Suspected 07/02/2022 07/02/2022 07/02/2022 12:42 PM SENIOR PORTFOLIO MANAGER documented as of this encounter Care Teams Head Of Biology Relationship Specialty Start Date End Date Jennifer Holliday MD [address] [facility] [address] [facility] [place] [address] PCP - General 10/30/16 Jennifer Holliday MD [address] [facility] [address] [facility] [place] [id number] PCP - Essence Attributed PCP 08/02/13 [place] [address] [facility] [address] [place] [address] Manager Culture Pulmonary Disease 03/25/18 02/03/23 Brien Sue MD [address] [place] [address] Medical Oncologist/Hematologi [facility] Oncology 03/25/18 07/05/22 Zakiya Shaikh MD PhD [address] [place] [address] Medical Oncologist/Hematologi [facility] Oncology 02/22/19 02/03/23 Jeramy Lester MD [address] [place] [address] Surgeon Cardiothoracic Surgery 03/16/19 Karen Melendez MD [address] [place] [address] Consulting Physician Rheumatology 05/22/19 Alysia Ty MD [address] [place], [place] [address] Consulting Physician Gastroenterology 05/22/19 Reymundo Johnston MD [address] [place] [address] Referring Physician Gynecology 12/03/20 Natasha Holloway MA [address] [facility] [address] [place] [address] ACO Care Immigration Judge 10/06/21 10/14/21 Romie Mccord DO [address] [place] [address] [address] [place] [address] Consulting Physician Urology 10/29/21 02/03/23 Soledad West MD [address] [facility] [address] [place] [address] Consulting Physician Dermatology 10/29/21 Dusty Luciano IV, AUD [address] [facility] [place] [address] Car Rental Manager 10/29/21 Vasile Mcmanus MD [address] [place] [address] Surgeon Vascular Surgery 10/29/21 Lucy Reyes RN [address] [place] [address] [address] [place] [address] Crown Ironer 02/10/22 03/10/22 [place] [address] [facility] [address] [place] [address] Surgeon Orthopedic Surgery 02/25/22 07/05/22 Lynn Edwards, ATIYA [address] [place] [address] [address] [place] [address] Crown Ironer 06/18/22 07/15/22 Kurtis Ochoa MD [address] [facility] [address] [place] [address] Referring Physician Orthopedic Surgery 07/06/22 Eddie Munroe MD [address] [facility] [address] [place] [address] Consulting Physician Neurosurgery 07/06/22 02/03/23 Hermes Hernandez MD [address] [facility] [address] [place] [address] Consulting Physician Neurology 08/06/22 Jessy Mckinney, RN [address] [place] [address] [address] [place] [address] Crown Ironer 12/10/22 01/06/23 Juan C Montelongo MD [address] [place] [address] Referring Physician Otolaryngology 10/26/23 Jono Boothe RN [address] [place] [address] [address] [place] [address] Crown Ironer 02/25/24 06/15/24 Sergey Spence MD [address] [place] [address] Referring Physician Gastroenterology 03/09/24 Juhi Connolly, PARQUETRY FLOOR LAYER [address] [place] [address] [address] [place] [address] Neurology 04/10/24 Jailyn Downey RN [address] [place] [address] [address] [place] [address] Crown Ironer 06/16/24 documented as of this encounter
--- OUTSIDE RECORDS SUMMARY | 2024-09-16 16:06 | XMS_ITS | Encounter Summary ---
Author Organization [facility] Healthcare Address [address] [place] [address] Care Team Providers Care Enterprise Resource Planner Name Role Phone Jennifer Holliday MD Primary Care Provid er Jennifer Holliday MD Unavailable [phone] Gentry Zamora MD Unavailable Brien Sue MD Unavailable Zakiya Shaikh MD PhD Unavailable [phone] Jeramy Lester MD Unavailable Karen Melendez MD Unavailable Alysia Ty MD Unavailable Reymundo Johnston MD Unavailable [phone] Natasha Holloway MA Unavailable [phone] Romie Mccord DO Unavailable Soledad West MD Unavailable Ankita REYNOLDS, Dusty BRYSON Unavailable Vasile Mcmanus MD Unavailable Lucy Reyes RN Unavailable [phone] Jerry Mahan MD Unavailable [phone] Lynn Edwards RN Unavailable [phone] Kurtis Ochoa MD Unavailable [phone] Eddie Munroe MD Unavailable [phone] Hermes Hernandez MD Unavailable Jessy Mckinney RN Unavailable [phone] Juan C Montelongo MD Unavailable Jono Boothe RN Unavailable [phone] Sergey Spence MD Unavailable + Juhi Connolly NP Unavailable [phone] Jailyn Downey RN Unavailable [phone] Reason for Visit * Reason Onset Date Comments Scheduling Appointments 01/07/2021 REMINDER CALL FOR DEXA; NO ANSWER. Encounter Details Date Type Department Care Team (Late st Contact Info) Description 01/07/2021 Telephone [facility] [address] [place] [address] Matilde Crocker RT Scheduling Appointments (REMINDER CALL [...] than three times a week 11/27/2020 Attends [employer] Not on file 11/27 Active Member [...] on file Legal Sex Female 11:24 PM ONLINE MARKETING SPECIALIST Gender Identity Female 02/03/2023 6:56 PM CDT [...] COVID: Suspected 07/02/2022 07/02/2022 07/02/2022 12:42 PM ONLINE MARKETING SPECIALIST documented as of this encounter Care Teams Enterprise Resource Planner Relationship Specialty Start Date End Date Jennifer Holliday MD [address] [place] [address] PCP - General 10/30/16 Jennifer Holliday MD [address] [place] [id number] PCP - Essence Attributed PCP 08/02/13 [place] [address] [address] [facility] [address] [place] [address] Citrix Systems Administrator Pulmonary Disease 03/25/18 02/03/23 Brien Sue MD [address] [place] [address] Medical Oncologist/Hematologi [facility] Oncology 03/25/18 07/05/22 Zakiya Shaikh MD PhD [address] [place] [address] Medical Oncologist/Hematologi [facility] Oncology 02/22/19 02/03/23 Jeramy Lester MD [address] [place], [place] [address] Surgeon Cardiothoracic Surgery 03/16/19 Karen Melendez MD [address] [place] [address] Consulting Physician Rheumatology 05/22/19 Alysia Ty MD [address] [place], [place] [address] Consulting Physician Gastroenterology 05/22/19 Reymundo Johnston MD [address] [place] [address] Referring Physician Gynecology 12/03/20 Natasha Holloway MA [address] [facility] [address] [place] [address] ACO Care Process Tank Tender 10/06/21 10/14/21 Romie Mccord DO [address] [place] [address] [address] [place] [address] Consulting Physician Urology 10/29/21 02/03/23 Soledad West MD [address] [facility] [address] [place] [address] Consulting Physician Dermatology 10/29/21 Dusty Luciano IV, AUD [address] [facility] [place] [address] Stay Cutter 10/29/21 Vasile Mcmanus MD [address] [place] [address] Surgeon Vascular Surgery 10/29/21 Lucy Reyes RN [address] [place] [address] [address] [place] [address] General Doc 02/10/22 03/10/22 [place] [address] [address] [facility] [address] [place] [address] Surgeon Orthopedic Surgery 02/25/22 07/05/22 Lynn Edwards RN [address] [place] [address] [address] [place] [address] General Doc 06/18/22 07/15/22 Kurtis cOhoa MD [address] [facility] [address] [place] [address] Referring Physician Orthopedic Surgery 07/06/22 Eddie Munroe MD [address] [facility] [address] [place] [address] Consulting Physician Neurosurgery 07/06/22 02/03/23 Hermes Hernandez MD [address] [facility] [address] [place] [address] Consulting Physician Neurology 08/06/22 Jessy Mckniney, RN [address] [place] [address] [address] [place] [address] General Doc 12/10/22 01/06/23 Juan C Montelongo MD [address] [place] [address] Referring Physician Otolaryngology 10/26/23 Jono Boothe RN [address] [place] [address] [address] [place] [address] General Doc 02/25/24 06/15/24 Sergey Spence MD [address] [place] [address] Referring Physician Gastroenterology 03/09/24 Juhi Connolly, ASSISTANT MANAGER RETAIL [address] [place] [address] [address] [place] [address] Neurology 04/10/24 Jailyn Downey RN [address] [place] [address] [address] [place] [address] General Doc 06/16/24 documented as of this encounter
--- OUTSIDE RECORDS SUMMARY | 2024-09-16 16:06 | XMS_ITS | Patient Health Summary ---
Author Organization [facility] Address [address] [place] [address] Care Team Providers Care Probation Agent Name Role Phone Jennifer Holliday MD Primary Care Provid er Note from [facility],non-owned Affiliates and Associated Physician Practices is amultiple site organization consisting of ambulatory clinics and hospital sitesin [place], [place], [place] and [place]. This disclosure is being madepursuant to the Care Everywhere program and may not contain all information available regarding this patient. Last updated 18.[facility] Allergies No known active allergies Medications * [...] propionate (FLONASE) 50 MCG/ACT nasal spray(Started 08/15/2016) [place] 2 Sprays into each nostril once daily [...] Comments Blood Pressure 117/84 08/25/2016 11:55 AM [employer] Pulse 99 08/25/2016 11:55 AM [employer] Temperature 36.4 C (97.5 F) 08/15/2016 7:07 AM [employer] Respiratory Rate 18 08/15/2016 7:07 AM [employer] Oxygen Saturation 92% 08/15/2016 7:07 AM [employer] Inhaled Oxygen Concentration - - Weight 70.3 kg (155 lb) 08/25/2016 11:55 AM [employer] Height 164.5 cm (5' 4.75 ) 08/25/2016 11:[address] Body Mass Index 25.99 08/25/2016 11:55 AM [employer] Medical Devices Implanted Type Area Travertine Installer Device Identifier Shelf Expiration Date Model / Serial / Lot Human Allograft Tissu Implanted:Qty : 1 on 01/06/2016 by Reymundo Shelley MD at [facility] [employer] [id number] / [id number] / Mesh Micro 6 X 8 Pc Implanted:Qty : 1 on 08/12/2016 by Reymundo Shelley MD at [facility] N/A: Abdomen [employer] 04/02/2017 [id number]-[id number] / / [id number] Procedures * BASIC METABOLIC PANEL (CALCIUM [...] CBC W AUTO DIFFERENTIAL (08/15/2016 4:55 AM [employer]) Only the most recent of6 resultswithin the time period is included. WBC 11.8(H) 4.4 - 10.7 x10E9/L 08/15/2016 5:10 AM [facility] WBC Corrected x10E9/L 08/15/2016 5:10 AM [facility] RBC 3.85 3.80 - 5.20 x10E12/L 08/15/2016 5:10 AM [facility] Hemoglobin 11.9(L) 12.0 - 15.6 gm/dL 08/15/2016 5:10 AM [facility] Hematocrit 36.4 35.9 - 45.5 % 08/15/2016 5:10 AM [facility] MCV 94.5 80.7 - 98.3 fl 08/15/2016 5:10 AM [facility] MCH 30.9 26.7 - 34.0 pg 08/15/2016 5:10 AM [facility] MCHC 32.7 30.8 - 35.9 gm/dL 08/15/2016 5:10 AM [facility] Platelet Count 312 153 - 416 x10E9/L 08/15/2016 5:10 AM [facility] RDW-CV 12.3 12.1 - 14.9 % 08/15/2016 5:10 AM [facility] MPV 10.4 9.4 - 12.9 fl 08/15/2016 5:10 AM [facility] Neutrophils % 71.4 44.0 - 73.0 % 08/15/2016 5:10 AM [facility] Lymphocytes % 14.8(L) 20.0 - 43.0 % 08/15/2016 5:10 AM [facility] Monocytes % 8.8 5.0 - 13.0 % 08/15/2016 5:10 AM [facility] Eosinophils % 4.1 0.0 - 6.0 % 08/15/2016 5:10 AM [facility] Basophils % 0.5 0.0 - 2.0 % 08/15/2016 5:10 AM [facility] Immature Granulocytes 0.4 0 - 1 % 08/15/2016 5:10 AM [facility] Neutrophil Absolute 8.40(H) 2.01 - 7.14 x10E9/L 08/15/2016 5:10 AM [facility] Lymphocytes Absolute 1.74 1.07 - 3.94 x10E9/L 08/15/2016 5:10 AM [facility] Monocytes Absolute 1.04 0.26 - 1.07 x10E9/L 08/15/2016 5:10 AM [facility] Eosinophils Absolute 0.48(H) 0 - 0.47 x10E9/L 08/15/2016 5:10 AM [facility] Basophils Absolute 0.06 0 - 0.08 x10E9/L 08/15/2016 5:10 AM [facility] Immature Granulocytes Absolute 0.05 0.00 - 0.06 x10E9/L 08/15/2016 5:10 AM [facility] nRBC Auto 0 /100 WBC 08/15/2016 5:10 AM [facility] Blood BLOOD SPECIMEN / Unknown 08/15/2016 4:55 AM [employer] 08/15/2016 5:05 AM [facility] Gloria Rai MD LAB - HEMATOLOGY ORD ERABLES [facility] [address] [place] [address] * (ABNORMAL) BASIC METABOLIC PANEL (CALCIUM TOTAL) (08/15/2016 4:55 AM [facility]) Only the most recent of7 resultswithin the time period is included. Glucose 88 74 - 106 mg/dL 08/15/2016 5:31 AM [facility] Sodium 132(L) 136 - 145 mmol/L 08/15/2016 5:31 AM [facility] Potassium 3.6 3.5 - 5.1 mmol/L 08/15/2016 5:31 AM [facility] Chloride 95(L) 98 - 107 mmol/L 08/15/2016 5:31 AM [facility] CO2 28 22 - 31 mmol/L 08/15/2016 5:31 AM [facility] Calcium 9.2 8.5 - 10.1 mg/dL 08/15/2016 5:31 AM [facility] Anion Gap 9 8 - 16 mmol/L 08/15/2016 5:31 AM [facility] BUN 15 7 - 21 mg/dL 08/15/2016 5:31 AM [facility] Creatinine 1.10 0.50 - 1.30 mg/dL 08/15/2016 5:31 AM [facility] eGFR by MDRD 48 mL/min/1.7 3m2 08/15/2016 5:31 AM [facility] eGFR by MDRD 59 mL/min/1.7 3m2 08/15/2016 5:31 AM [facility] Blood BLOOD SPECIMEN / Unknown 08/15/2016 4:55 AM [employer] 08/15/2016 5:05 AM [facility] Gloria Rai MD LAB - CHEMISTRY JOSH BARNES [facility] Organization Address City/State/ZIP Co de Phone Number [facility] [address] [place] [phone] * XR CHEST PA AND LATERAL (08/14/2016 8:08 AM [employer]) Anatomical Region Laterality Modality Chest Radiographic Katrin ging 08/14/2016 8:09 AM [employer] Impressions 08/14/2016 8:14 AM [employer] Atelectasis or infiltrate is present at the lung bases, left greater than right. This examination was transcribed using the [email or web address] voice recognition system without human exterior work helper. In an effort to expedite patient care, this report has not been adjusted for typographical, grammatical, and syntax by a trained medical scientific officer. Narrative 08/14/2016 8:14 AM [employer] PA AND LATERAL CHEST INDICATION: Short of [...] right. This examination was transcribed using the [email or web address] voice recognition system without human exterior work helper. In an effort to expedite patient care, this report has not been adjusted for typographical, grammatical, and syntax by a trained medical scientific officer. Roberta Valdovinos Amy VAN LOADER-BIOASSAYIST DIAGNOSTI C IMAGING ORDERABLES * FL FLUORO UPPER GI TRACT + KUB (08/13/2016 9:39 AM [employer]) Only the most recent of3 resultswithin the time period is included. Anatomical Region Laterality Modality Abdomen Radiographic Katrin ging 08/13/2016 12:5 6 PM [employer] Impressions 08/13/2016 1:32 PM [employer] No evidence of leak or recurrent hiatal hernia. Narrative 08/13/2016 1:32 PM [employer] Fluoroscopic upper GI with KUB Indication: Abdominal [...] - POINT OF CARE (08/12/2016 6:01 PM [employer]) Only the most recent of3 resultswithin the time period is included. Pathologist [facility] Glucose WB/POC 176(H) 70 - 106 mg/dL 08/13/2016 7:40 AM [employer] [facility] Blood BLOOD SPECIMEN / Unknown 08/12/2016 6:01 PM [employer] 08/13/2016 7:40 AM [employer] Reymundo Shelley MD LAB - POINT OF CARE ORDERABLES [facility] [address] [place] [address] * EKG 12-LEAD (08/12/2016 10:31 AM [employer]) Only the most recent of2 resultswithin the time period is included. Pathologist [facility] Ventricular Rate 79 BPM [facility] Atrial Rate 79 BPM [facility] P-R Interval 146 ms [facility] QRS Duration ms 94 ms [facility] Q-T Interval ms 388 ms [facility] QTC Calculation (Bezet) 444 ms [facility] Calculated P Maynard 54 degrees [facility] Calculated R Maynard -7 degrees [facility] Calculated T Maynard 30 degrees [facility] Interpretation EKG Normal sinus rhythm Incomplete right bundle branch block Minimal voltage criteria for LVH, may be normal variant Borderline ECG When compared with ECG of 16-DEC-2015 11:18, No significant change was found Confirmed by POLA HEATON MD ([id number]) on 08/12/2016 12:52:51 PM [facility] 08/12/2016 10:3 1 AM [employer] 08/12/2016 12:52 PM [employer] Laura Burdick DO ECG ORDERABLES Performing Organization Address City/[facility] Co de Phone Number [facility] * HGB HCT PANEL (08/12/2016 10:10 AM [employer]) Only the most recent of4 resultswithin the time period is included. Hemoglobin 13.4 12.0 - 15.6 gm/dL 08/12/2016 10:40 AM [employer] [facility] Hematocrit 40.9 35.9 - 45.5 % 08/12/2016 10:40 AM [facility] Blood BLOOD SPECIMEN / Unknown 08/12/2016 10:10 AM [employer] 08/12/2016 10:34 AM [employer] Laura Burdick DO LAB - HEMATOLOGY ORD ERABLES Performing Organization Address City/[facility] Co de Phone Number [facility] [address] [place] [address] * EGD (07/08/2016 8:46 AM [employer]) Narrative [facility] ENDOSCOPY - 07/08/2016 8:46 AM [employer] Reymundo Shelley MD 07/08/2016 8:46 AM [facility] Operative Report OPERATIVE REPORT PATIENT:Malini Joe MR#: ADMIT DATE: 07/08/2016 6:55 AM [facility]#: DATE OF SURGERY: 07/08/2016 : 1940 PHYSICIAN: Reymundo Shelley MD 76 yrs Body mass index is 26.79 kg/(m^2). PREOPERATIVE DIAGNOSES: dysphagia POSTOPERATIVE DIAGNOSES: SAME Slipped fundoplication Recurrent hiatal hernia Surgeon: Reymundo Shelley MD PEDIATRIC NEUROLOGIST: none PROCEDURES PERFORMED: Esophagogastroduodenoscopy w/ biopsy of [...] Reymundo Shelley MD GI PROCEDURE ORDERAB LES [facility] [place] [address] * GROSS + MICRO EXAM (STL) (07/08/2016 8:32 AM [employer]) Only the most recent of2 resultswithin the time period is included. Case Report Surgical Pathology Report Case: [id number] Authorizing Provider: Reymundo Shelley MD Collected: 07/08/2016 08:32 AM Ordering Location: [facility] Received: 07/08/2016 09:29 AM Pathologist: Mukul Santana MD Specimen: EG Junction Biopsy , g-E junction 07/09/2016 3:40 PM [employer] [facility] Final Diagnosis 1. Esophagus, biopsy: -- Esophagitis, acute and chronic, severe with ulceration JW/armand 07/09/2016 3:40 PM [employer] [facility] Gross Description Received in formalin in a container labeled Malini Joe, esophageal biopsy. The container holds three harvey tissue fragments measuring 0.1 cm up to 0.6 cm. The specimen is entirely submitted in cassette labeled A1. FELIZ/neda 07/09/2016 3:40 PM [facility] Microscopic Description Section of the esophageal biopsy shows squamous epithelium and gastric-type of mucosa. Squamous epithelium displays normal maturation. No dysplasia or malignancy is seen. Focally, acute and chronic inflammation with ulceration is present. Intestinal metaplasia is not seen. Alcian blue/PAS stain is negative. CHRYSTAL/armand 07/09/2016 3:40 PM [facility] Disclaimer All histochemical and/or immunohistochemical results are interpreted with controls that demonstrate appropriate staining reactions before reporting results. Note on use of immunocytochemistry reagents: This test was developed and its performance characteristic determined by [facility], Department of Laboratory Medicine. It has not been cleared or approved by the U.S. Food and Drug Administration (FDA). The FDA has determined that such clearance or approval is not necessary. The test is used for clinical purpose. It should not be regarded as investigational or for research. This laboratory is certified to perform high complexity testing. 07/09/2016 3:40 PM [facility] Embedded Images 07/09/2016 3:40 PM [facility] Pathology/Cytolo gy BIOPSY SPECIMEN / Unknown 07/08/2016 8:32 AM [employer] 07/08/2016 9:29 AM [employer] Reymundo Shelley MD LAB - PATHOLOGY/CYTO LOGY ORDERABLES Performing Organization Address [facility]/State/[facility] Co de Phone Number [facility] [address] [place] [address] * APHERESIS/TRANSFUSION ORDER (01/09/2016 7:00 PM CDT) Narrative 01/09/2016 7:00 PM CDT Ordered by an unspecified provider. Scanned Document NURSING - VITAL SIGN S AND ASSESSMENT * (ABNORMAL) SLIDE SCAN HEMATOLOGY (01/07/2016 12:40 PM CDT) Only the most recent of2 resultswithin the time period is included. Platelet Estimation Adequate platelets Normal, Adequate platelets 01/07/2016 1:13 PM CDT [facility] Microcytosis 2+(A) None 01/07/2016 1:13 PM CDT [facility] Poikilocytosis 1+(A) None 01/07/2016 1:13 PM CDT [facility] Blood BLOOD SPECIMEN / Unknown 01/07/2016 12:40 PM CDT 01/07/2016 12:45 PM CDT Roberta Reyes VAN LOADER-BIOASSAYIST LAB - HEM ATOLOGY ORDERABLES Performing Organization Address City/[facility]/ZIP Co de Phone Number [facility] [address] [place] [address] * BLOOD TYPE VERIFICATION (01/06/2016 6:58 AM CDT) Francine Ervin ABO O 01/06/2016 8:21 AM CDT [facility] Rh Type Negative 01/06/2016 8:21 AM CDT [facility] Miscellaneous samples (specimen) BLOOD SPECIMEN / Unknown 01/06/2016 6:58 AM CDT 01/06/2016 7:04 AM CDT Reymundo Shelley MD LAB - BLOOD BANK ORD ERABLES Performing Organization Address [facility] Co de Phone Number [facility] [id number] [place] [address] * CROSSMATCH RBC (01/06/2016 6:25 AM CDT) Only the most recent of2 resultswithin the time period is included. Pathologist [facility] Unit Donor # [id number] 2-M 01/09/2016 7:19 AM CDT [facility] Product Code E0336 01/09/2016 7:19 AM CDT [facility] Unit Description E0336 RBC, LR, CPD>AS1 01/09/2016 7:19 AM CDT [facility] ABO Donor Type O 01/09/2016 7:19 AM CDT [facility] Rh Type Unit NEG 01/09/2016 7:19 AM CDT [facility] Unit Status Returned 01/09/2016 7:19 AM CDT [facility] Miscellaneous samples (specimen) BLOOD SPECIMEN / Unknown 01/06/2016 6:25 AM CDT 01/06/2016 8:34 AM CDT Reymundo Shelley MD LAB - BLOOD BANK ORD SALENAMARCY Performing Organization Address [facility] Co de Phone Number [facility] [address] * TYPE + SCREEN PANEL (01/06/2016 6:25 AM CDT) ABO O 01/06/2016 8:19 AM CDT [facility] Rh Type Negative 01/06/2016 8:19 AM CDT [facility] Comment:History check perfor med. Retype required. Antibody Screen Negative 01/06/2016 8:19 AM CDT [facility] Miscellaneous samples (specimen) BLOOD SPECIMEN / Unknown 01/06/2016 6:25 AM CDT 01/06/2016 6:35 AM CDT Reymundo Shelley MD LAB - BLOOD BANK PUNEET MORRIS Performing Organization Address [facility] de Phone Number [facility] [address] * COLONOSCOPY (12/26/2015) Reymundo Shelley MD GENERIC SURGICAL HIS TORY * MOTILITY STUDY, ESOPHAGEAL (11/15/2015) Reymundo Shelley MD GI PROCEDURE ORDERAB LES * EGD (11/15/2015) Reymundo Shelley MD GI PROCEDURE ORDERAB LES Care Teams Probation Agent Relationship Specialty Start Date End Date Jennifer Holliday MD PCP - General Internal Medicine 10/10/15
--- OUTSIDE RECORDS SUMMARY | 2024-09-16 16:06 | XMS_ITS | Clinical Summary ---
Author Organization [facility] Address [address] [place] [address] Care Team Providers Care Melt House Drag Operator Name Role Phone Jennifer Holliday MD Primary Care Provid er Jennifer Holliday MD Unavailable [phone] Jeramy Lester MD Unavailable [phone] Karen Melendez MD Unavailable Alysia Ty MD Unavailable [phone] Reymundo Johnston MD Unavailable Soledad West MD Unavailable [phone] ADELAIDE Luciano IV, C Joseph Unavailable [phone] Vasile Mcmanus MD Unavailable Kurtis Ochoa MD Unavailable [phone] Hermes Hernandez MD Unavailable Juan C Montelongo MD Unavailable Sergey Spence MD Unavailable + Juhi Connolly NP Unavailable [phone] Jailyn Downey RN Unavailable [phone] Allergies Active Allergy Reactions Criticality Noted Date [...] 03/18/2022 Assessment & Plan (09/06/2024 1:21 PM PLASMA PROCESSOR): Follow up with Edy Arthritis of right knee 02/05/2022 Assessment & Plan (03/24/2022 11:39 AM CDT): Patient appears to have a small effusion the knee and some reactive synovitis. Scheduled to see a unload associate in early April and who would be advisable to keep that appointment. It may be helpful to contact the unload associate let them know she is having acute [...] oxygen. Multifocal pneumonia 12/02/2020 Lesion of left cahuilla kidney 12/02/2020 Assessment & Plan (12/02/2020 11:11 PM CDT): Noted on CT scan. 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 Will consult Urology. 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 Mcmanus at [facility] on December 10. Patient has ecchymosis [...] 02/19/2020 Assessment & Plan (08/31/2024 9:46 AM PLASMA PROCESSOR): Labs ordered Assessment & Plan (02/11/2021 12:53 [...] 04/11/2018 Assessment & Plan (09/09/2023 8:21 AM PLASMA PROCESSOR): Patient had left thyroid nodule for almost [...] 03/29/2018 Assessment & Plan (09/06/2024 1:22 PM PLASMA PROCESSOR): Follow up with dirk Sciatic pain 03/29/2018 Pleural mass 03/16/2018 Rib pain on right side 03/16/2018 Age-related osteoporosis wit hout current pathological fracture 06/23/2017 Assessment & Plan (09/06/2024 1:21 PM PLASMA PROCESSOR): Follow up with Dr Day Assessment & Plan (09/09/2023 8:21 AM PLASMA PROCESSOR): Osteoporosis with high-risk status post left hip [...] precautions Assessment & Plan (09/28/2017 9:37 PM PLASMA PROCESSOR): recent DEXA scan results And recent labs [...] months Assessment & Plan (06/23/2017 9:27 AM PLASMA PROCESSOR): Reviewed pt. Recent DEXA scan results And [...] 03/17/2017 Assessment & Plan (08/31/2024 9:46 AM PLASMA PROCESSOR): Labs ordered Assessment & Plan (03/17/2017 11:16 AM CDT): Check cbc Gastroesophageal reflux disease 08/24/2016 Overview (11/05/2016): ESOPHAGEAL REFLUX Assessment & Plan (09/02/2024 11:01 PM PLASMA PROCESSOR): Continue pantoprazole Assessment & Plan (12/02/2020 11:06 [...] at the next regular appointment. Polymyalgia rheumatica ([facility]) 09/26/2014 Overview (11/05/2016): PMR - Polymyalgia rheumatica [...] Hyperlipidemia Assessment & Plan (08/31/2024 9:47 AM PLASMA PROCESSOR): Labs ordered Continue zetia and atorvastatin Assessment & Plan (03/17/2017 11:05 AM CDT): Lipid abnormalities are improving with treatment. Nutritional counseling was provided. Lipids will be reassessed 4mos. Hypertension 07/11/2012 Overview (11/05/2016): Hypertension Assessment & Plan (08/31/2024 9:47 AM PLASMA PROCESSOR): Stable continue Assessment & Plan (12/02/2020 11:06 [...] Care Team Description 09/14/2024 AMBROSIO IP Outreach [facility] Accountable Care Organization [address] [place] [address] Jenise Holloway LPN 09/03/2024 Orders Only [facility] Medical [facility] Respiratory Care at [address] [address] Benita Giraldo NP 08/31/2024 11:10 AM PLASMA PROCESSOR Lab [address] [address] Iron deficiency anemia, unspecified iron deficiency anemia type; Vitamin D deficiency; Encounter for Medicare annual wellness exam; Mixed hyperlipidemia; Primary hypertension 08/31/2024 9:30 AM PLASMA PROCESSOR Office Visit [facility] Medical [facility] Respiratory Care at [address] [address] Benita Giraldo NP Encounter for [...] osteoporosis without current pathological fracture 08/16/2024 Telephone [facility] [id number] [place] [address] [address], [place] [address] Franc Duarte II, MD 08/09/2024 Telephone [facility] Medical Group at [address] [address] Jennifer Holliday MD Referral Request 06/22/2024 3:45 PM PLASMA PROCESSOR Office Visit [facility] Medical Group [facility] Care at [address] [address] Emiliano Trinidad NP Bilateral acute [...] = 0.6 oz pur e alcohol) occasionally [employer] Utilities Answer Date Recorded In the past 12 months has [employer], gas, oil, or water [employer] threatened to shut off services in your [...] How often do you attend chur or moravian services? More than 4 times per year 02/25/2024 Do you belong to any clubs o r organizations such as cheondoism groups, unions, fraternal or athletic groups, or [...] place to sleep or slept in a long term (including now)? No 12/10/2022 Housing Stability Vital Sign Answer Angel e Recorded In the last 12 months, was t here a time when you were not able to pay the mortgage or rent on time? No 02/25/2024 In the past 12 months, how m any times have you moved where you were living? 0 02/25/2024 At any time in the past 12 m [facility], were you homeless or living in a long term (including now)? No 02/25/2024 Comments No Sex and Gender Information Value Date Recorded Sex Assigned at Not on file Legal Sex Female 11:24 PM PLASMA PROCESSOR Gender Identity Female 02/03/2023 6:56 PM CDT [...] Comments Blood Pressure 128/82 08/31/2024 9:50 AM PLASMA PROCESSOR Pulse 82 08/31/2024 9:50 AM PLASMA PROCESSOR Temperature 36.2 C (97.2 F) 08/31/2024 9:50 AM PLASMA PROCESSOR Respiratory Rate 16 08/31/2024 9:50 AM PLASMA PROCESSOR Oxygen Saturation 93% 08/31/2024 9:50 AM PLASMA PROCESSOR Inhaled Oxygen Concentration - - Weight 67.1 kg (148 lb) 08/31/2024 9:50 AM PLASMA PROCESSOR Height 152.4 cm (5') 08/31/2024 9:50 AM PLASMA PROCESSOR Body Mass Index 28.9 08/31/2024 9:50 AM PLASMA PROCESSOR Plan of Treatment Health Maintenance Due Date [...] ACO Care Management On track(2024 4:08 PM PLASMA PROCESSOR) No Jono Boothe, RN Note: Problem: Potential [...] ACO Care Management On track(2024 4:08 PM PLASMA PROCESSOR) No Jailyn Downey, ATIYA Note: Problem: At [...] URINALYSIS, MICROSCOPIC ONLY Routine 08/31/2024 12:18 PM PLASMA PROCESSOR Encounter for Medicare annual wellness exam ALBUMIN CREATININE RATIO, URINE Routine 08/31/2024 12:18 PM PLASMA PROCESSOR Primary hypertension URINALYSIS AND REFLEX TO MICROSCOPIC AND CULTURE Routine 08/31/2024 12:18 PM PLASMA PROCESSOR Encounter for Medicare annual wellness exam URINE CULTURE Routine 08/31/2024 12:18 PM PLASMA PROCESSOR EGFR Routine 08/31/2024 11:21 AM PLASMA PROCESSOR Encounter for Medicare annual wellness exam DIFFERENTIAL AUTO Routine 08/31/2024 11:21 AM PLASMA PROCESSOR Encounter for Medicare annual wellness exam CBC WITH AUTO DIFFERENTIAL Routine 08/31/2024 11:21 AM PLASMA PROCESSOR Encounter for Medicare annual wellness exam COMPREHENSIVE METABOLIC PANEL Routine 08/31/2024 11:21 AM PLASMA PROCESSOR Encounter for Medicare annual wellness exam LIPID PANEL Routine 08/31/2024 11:21 AM PLASMA PROCESSOR Mixed hyperlipidemia HEMOGLOBIN A1C Routine 08/31/2024 11:21 AM PLASMA PROCESSOR Encounter for Medicare annual wellness exam VITAMIN D 25 HYDROXY Routine 08/31/2024 11:21 AM PLASMA PROCESSOR Vitamin D deficiency IRON PROFILE W/ IBC Routine 08/31/2024 11:21 AM PLASMA PROCESSOR Iron deficiency anemia, unspecified iron deficiency anemia type POCT RAPID STREP Routine 06/22/2024 3:38 PM PLASMA PROCESSOR Bilateral acute serous otitis media, recurrence not specified DEXA AXIAL SKELETON BONE DENSITY 1 OR MORE SITES Schedule Routine, Read Routine (OP Routine) 01/08/2021 11:43 AM CDT Osteopenia of left hip from Last 3 Months or Most Recently Relevant to Health Maintenance Results * (ABNORMAL) Urinalysis reflex to microscopic and culture Urine, clean voided (08/31/2024 12:18 PM PLASMA PROCESSOR) Color, ur Yellow Yellow Comment:Testing performed by : [facility] [address], [place] [address] Clarity, ur Turbid(A) Clear STACEY Comment:Testing performed by : [address], [place] [address] Specific gravity, ur 1.018 1.003 - 1.030 STACEY Comment:Testing performed by : [address], [place] [address] pH, urine 6.0 CERNER CH Comment: Interpretive Data U rine pH is affected by diet, medications, systemic acid-base disturbances, and renal tubular function. pH may affect urinary stone formation. For example, urine pH below 6.0 may help reduce the tendency for calcium phosphate stones and pH greater than 6.0 may reduce the tendency for uric acid stone formation. Source: [facility] Current Interpretive Data was last revised on 2017 Testing performed by: [facility], [place] [address] Protein, ur ql Trace Negative CERNER CH Comment:Testing performed by : [facility], [place] [address] Glucose, ur ql Negative Negative CERNER CH Comment:Testing performed by : [facility], [place], [place] [address] Ketones, ur Negative Negative CERNER CH Comment:Testing performed by : [address], [place] [address] Bilirubin, ur Negative Negative CERNER CH Comment:Testing performed by : [facility], [place] [address] Blood, ur Negative Negative CERNER CH Comment:Testing performed by : [facility], [place] [address] Urobilinogen, ur <2.0 <2.0 mg/dL CERNER CH Comment:Testing performed by : [facility], [place] [address] Nitrite, ur Negative Negative CERNER CH Comment:Testing performed by : [facility], [place] [address] Leukocyte esterase, ur 2+(A) Negative CERNER CH Comment:Testing performed by : [facility], [place] [address] UA reflex comment Reflex to microscopic UA will be performed. CERNER Comment:Testing performed by : [facility], [address] [place] [address] Urine, clean voided 08/31/2024 12:18 PM PLASMA PROCESSOR 08/31/2024 12:18 PM PLASMA PROCESSOR us Benita Giraldo NP LAB MICROBIOLOGY - GENERA L ORDERABLES Final Result STACEY [address] Department [place] [address] * (ABNORMAL) Albumin Creatinine Ratio, Urine (08/31/2024 12:18 PM PLASMA PROCESSOR) Albumin Ur 39.2 mg/L Comment: Interpretive Data No reference range established. Current interpretive data was last revised 2018. Creatinine Ur 99.0 mg/dL [facility] Comment: Interpretive Data No reference range established. Current interpretive data was last revised 2018. Albumin Creatinine Ratio, Ur 40(H) 1 - 29 mg/g [facility] Urine 08/31/2024 12:1 8 PM PLASMA PROCESSOR 08/31/2024 7:43 PM PLASMA PROCESSOR Benita Giraldo NP LAB URINE ORDERABLES Shasta murray Result [facility] [address] [place] [address] * (ABNORMAL) Urinalysis, microscopic only (08/31/2024 12:18 PM PLASMA PROCESSOR) WBC, ur 11-20(A) 0 - 5 /HPF Comment:Testing performed by : [facility], [place] [address] RBC, ur 0-2 0 - 2 /HPF [facility] Comment:Testing performed by : [facility], [place] [address] Epithelial cells, squamous, ur 1-5 0 - 5 /HPF [facility] Comment:Testing performed by : [address], [place] [address] Bacteria, ur Trace(A) [facility] Comment:Testing performed by : [facility], [place] [address] Mucous, ur Present(A) [facility] Comment:Testing performed by : [address], [place] [address] Hyaline casts, ur 6-10 0 - 10 /LPF STACEY Comment:Testing performed by : [facility], [place] [address] Culture Reflex Comment Reflex to urine culture will be performed. [facility] Comment:Testing performed by : [facility], [place] [address] Urine, clean voided 08/31/2024 12:18 PM PLASMA PROCESSOR 08/31/2024 2:19 PM PLASMA PROCESSOR Benita Giraldo TONGUE AND GROOVE MACHINE OPERATOR LAB URINE ORDERABLES Shasta l Result Performing Organization Address [facility]/ZIP Co de Phone Number STACEY [address] Department [place] [address] * (ABNORMAL) Urine culture Urine, clean voided (08/31/2024 12:18 PM PLASMA PROCESSOR) Report Final Report: Greater than or equal to 100,000 colonies/mL of Klebsiella pneumoniae Plus growth of clinically insignificant bacterial alena. (.) Comment:Testing performed by : [facility], [address] [place]., [address] Organism KLEBSIELLA PNEUMONIAE [facility] Organism PLUS GROWTH OF CLINICALLY INSIGNIFICANT ALENA. [facility] Urine, clean voided 08/31/2024 12:18 PM PLASMA PROCESSOR 08/31/2024 5:55 PM PLASMA PROCESSOR Narrative [facility] - 09/04/2024 6:10 AM PLASMA PROCESSOR Urine culture reflexed based upon urinalysis results. Testing performed by [facility] Microbiology Laboratory ([phone]) Organism Antibiotic Method Susceptibility Klebsiella pneumoniae Ampicillin [...] Klebsiella pneumoniae Cefdinir INTERPRETATION Susceptible Benita Giraldo TONGUE AND GROOVE MACHINE OPERATOR LAB MICROBIOLOGY - GENERA L ORDERABLES Final Result Performing Organization Address City/[facility]/ZIP Co de Phone Number STACEY ZAMBRANO [address] Department [employer] [place], [place] [id number] * eGFR (08/31/2024 11:21 AM PLASMA PROCESSOR) eGFR 74 >=60 mL/min/1. 73 m2 Comment: [...] was last reviewed 2021. Testing performed by: [facility], [place] [address] Blood 08/31/2024 11:2 1 AM PLASMA PROCESSOR 08/31/2024 11:38 AM PLASMA PROCESSOR Benita Giraldo NP LAB BLOOD ORDERABLES Shasta murray Result STACEY [address] [place] [address] * (ABNORMAL) Differential, auto (08/31/2024 11:21 AM PLASMA PROCESSOR) Neutrophil abs 6.3 1.5 - 6.5 K/cumm Comment:Testing performed by : [facility], [place] [address] Imm gran abs 0.0 0.0 - 0.1 K/cumm STACEY ZAMBRANO Comment:Testing performed by : [facility], [place] [address] Lymphocyte abs 1.1 0.8 - 3.3 K/cumm STACEY ZAMBRANO Comment:Testing performed by : [address], [place] [address] Monocyte abs 0.9(H) 0.2 - 0.8 K/cumm CERNER CH Comment:Testing performed by : [facility], [facility], [place] [address] Eosinophil abs 0.3 0.0 - 0.5 K/cumm CERNER CH Comment:Testing performed by : [facility], [facility], [place] [address] Basophil abs 0.1 0.0 - 0.1 K/cumm CERNER CH Comment:Testing performed by : [facility], [facility] [address], [place] [address] Neutrophil pct 72.5 % CERNER CH Comment: Interpretive Data Percent cell count reference ranges are not reported, since discordance with absolute values may lead to misinterpretation of CBC data. Current Interpretive Data was last revised on 2017. Testing performed by: [facility], [facility] [address], [place] [address] Imm gran pct 0.3 % CERNER CH Comment: Interpretive Data Percent cell count reference ranges are not reported, since discordance with absolute values may lead to misinterpretation of CBC data. Current Interpretive Data was last revised on 2017. Testing performed by: [facility], [facility] [place] [address] Lymphocyte pct 12.8 % CERNER CH Comment: Interpretive Data Percent cell count reference ranges are not reported, since discordance with absolute values may lead to misinterpretation of CBC data. Current Interpretive Data was last revised on 2017. Testing performed by: [facility], [facility] [place] [address] Monocyte pct 10.8 % CERNER CH Comment: Interpretive Data Percent cell count reference ranges are not reported, since discordance with absolute values may lead to misinterpretation of CBC data. Current Interpretive Data was last revised on 2017. Testing performed by: [facility], [facility] [place] [address] Eosinophil pct 2.9 % CERNER CH Comment: Interpretive Data Percent cell count reference ranges are not reported, since discordance with absolute values may lead to misinterpretation of CBC data. Current Interpretive Data was last revised on 2017. Testing performed by: [facility], [facility] [address], [place] [address] Basophil pct 0.7 % CERNER CH Comment: Interpretive Data Percent cell count reference ranges are not reported, since discordance with absolute values may lead to misinterpretation of CBC data. Current Interpretive Data was last revised on 2017. Testing performed by: [address], [place] [address] Blood 08/31/2024 11:2 1 AM PLASMA PROCESSOR 08/31/2024 11:21 AM PLASMA PROCESSOR Benita Giraldo TONGUE AND GROOVE MACHINE OPERATOR LAB BLOOD ORDERABLES Shasta l Result Performing Organization Address [facility] Co de Phone Number [facility] [address] [facility] [place] [address] * Iron profile w/ IBC (08/31/2024 11:21 AM PLASMA PROCESSOR) Pathologist [facility] Iron 65 35 - 145 mcg/dl TIBC 285 250 - 400 mcg/dL [facility] Transferrin saturation 23 20 - 50 % CERNER Blood 08/31/2024 11:2 1 AM PLASMA PROCESSOR 08/31/2024 9:12 PM PLASMA PROCESSOR Benita Giraldo TONGUE AND GROOVE MACHINE OPERATOR LAB BLOOD ORDERABLES Shasta l Result Performing Organization Address [facility] de Phone Number [facility] [address] [facility] [place] [place] [address] * (ABNORMAL) CBC with auto differential (08/31/2024 11:21 AM PLASMA PROCESSOR) WBC 8.7 3.8 - 9.9 K/cumm Comment:Testing performed by : [address], [place] [address] Hgb 13.1 11.9 - 15.5 g/dL CERNER Comment:Testing performed by : [facility], [place] [address] Hct 39.8 35.6 - 45.5 % CERNER CH Comment:Testing performed by : [address], [place] [address] Plt 300 150 - 400 K/cumm CERNER CH Comment:Testing performed by : [address], [place] [address] MPV 10.6 9.1 - 12.3 fL CERNER CH Comment:Testing performed by : [facility] [address] [place], [place] [address] RBC 4.16 3.90 - 5.20 M/cumm CERNER CH Comment:Testing performed by : [facility], [address] [place], [place] [address] MCV 95.7 81.3 - 96.4 fL CERNER CH Comment:Testing performed by : [facility], [address] [place], [place] [address] MCH 31.5 27.1 - 33.3 pg CERNER CH Comment:Testing performed by : [facility], [facility] [address] [place], [place] [address] MCHC 32.9 32.3 - 35.7 g/dL CERNER CH Comment:Testing performed by : [facility], [facility] [address] [place] [address] RDW CV 14.4 11.1 - 14.9 % CERNER CH Comment:Testing performed by : [facility] [place] [address] RDW SD 51.0(H) 35.7 - 48.1 fL CERNER CH Comment:Testing performed by : [facility], [facility] [address] [place], [place] [address] NRBC abs 0.00 0.00 - 0.01 K/cumm CERNER CH Comment:Testing performed by : [facility], [facility] [place] [address] Blood 08/31/2024 11:2 1 AM PLASMA PROCESSOR 08/31/2024 11:21 AM PLASMA PROCESSOR Benita Giraldo TONGUE AND GROOVE MACHINE OPERATOR LAB BLOOD ORDERABLES Shasta l Result [facility] [address] Department [place] [address] * Vitamin D 25 hydroxy (08/31/2024 11:21 AM PLASMA PROCESSOR) Vitamin D 25-OH 58 30 - 80 ng/mL Blood 08/31/2024 11:2 1 AM PLASMA PROCESSOR 08/31/2024 9:03 PM PLASMA PROCESSOR Benita Giraldo TONGUE AND GROOVE MACHINE OPERATOR LAB BLOOD ORDERABLES Shasta l Result Performing Organization Address [facility] Co de Phone Number [facility] [address] [facility] [place] [place] [address] * (ABNORMAL) Hemoglobin A1c (08/31/2024 11:21 AM PLASMA PROCESSOR) Pathologist [facility] Hgb A1C 5.8(H) 4.0 - 5.6 % Estimated Average Glucose 120 mg/dL STACEY Comment: The ADA recommends reporting an estimated Average Glucose (eAG) with all Hemoglobin A1c results using the equation derived from a study of 507 normal and diabetic adults. Minority populations were underrepresented and children were not included. (Diabetes Care 31:8548-7168, 2008). The eAG is not equivalent to a fasting glucose. Blood 08/31/2024 11:2 1 AM PLASMA PROCESSOR 08/31/2024 9:16 PM PLASMA PROCESSOR Benita Giraldo TONGUE AND GROOVE MACHINE OPERATOR LAB BLOOD ORDERABLES Shasta l Result Performing Organization Address [facility] Co de Phone Number DEON[facility] [address] [address] Department [place] [address] * Lipid panel (08/31/2024 11:21 AM PLASMA PROCESSOR) Pathologist [facility] Cholesterol 139 30 - 199 mg/dL Comment: [...] last revised on 2018. Testing performed by: [facility], [address], [place] [address] Triglycerides 85 <=149 mg/dL STACEY ZAMBRANO Comment: [...] last revised on 2018. Testing performed by: [facility], [address] [place] [address] HDL 65 >=40 mg/dL STACEY Comment: Interpretive [...] last revised on 2018. Testing performed by: [facility], [address] [place] [address] LDL, calculated 58 <=129 mg/dL STACEY Comment: [...] last revised on 2024. Testing performed by: [address], [place] [address] Non-HDL Cholesterol 74 [...] last revised on 2018. Testing performed by: [facility], [place] [address] Chol/HDL ratio 2 [facility] Comment:Testing performed by : [address], [place] [address] Blood 08/31/2024 11:2 1 AM PLASMA PROCESSOR 08/31/2024 11:21 AM PLASMA PROCESSOR Benita Giraldo TONGUE AND GROOVE MACHINE OPERATOR LAB BLOOD ORDERABLES Shasta murray Result [facility] [address] Department [place] [address] * Comprehensive metabolic panel (08/31/2024 11:21 AM PLASMA PROCESSOR) Sodium 143 135 - 145 mmol/L Comment:Testing performed by : [address], [place] [address] Potassium, pl 4.2 3.3 - 4.9 mmol/L [facility] Comment:Testing performed by : [address], [place] [address] Chloride 107 97 - 110 mmol/L [facility] Comment:Testing performed by : [address], [place] [address] CO2 27 22 - 32 mmol/L [facility] Comment:Testing performed by : [address], [place] [address] Anion gap 9 2 - 15 mmol/L [facility] CH Comment:Testing performed by : [facility] [address] BUN 18 6 - 25 mg/dL [facility] CH Comment:Testing performed by : [facility] [place] [address] Creatinine 0.79 0.60 - 1.10 mg/dL [facility] CH Comment:Testing performed by : [facility] [place] [address] Glucose 117 70 - 199 mg/dL CERNER [...] was last revised 2022. [facility]: [facility] [place] [address] Calcium 9.9 8.5 - 10.3 mg/dL CERNER CH Comment:Testing performed by : [facility] [place] [address] Bilirubin, total 0.6 0.1 - 1.2 mg/dL CERNER CH Comment:Testing performed by : [address], [place] [address] Protein, pl 7.2 6.5 - 8.5 g/dL CERNER CH Comment:Testing performed by : [facility] [address] Albumin 3.8 3.5 - 5.0 g/dL CERNER CH Comment:Testing performed by : [facility] [place] [address] Alk phos 106 40 - 130 Units/L CERNER CH Comment:Testing performed by : [address], [place] [address] ALT 25 7 - 45 Units/L CERNER CH Comment:Testing performed by : [facility] [place] [address] AST 26 10 - 45 Units/L CERNER CH Comment:Testing performed by : [facility], [address], [place] [address] Blood 08/31/2024 11:2 1 AM PLASMA PROCESSOR 08/31/2024 11:21 AM PLASMA PROCESSOR Benita Giraldo NP LAB BLOOD ORDERABLES Shasta l Result STACEY [address] Department [place] [address] * POCT rapid strep A (06/22/2024 3:38 PM PLASMA PROCESSOR) [facility] Signature Rapid Strep A, POC Negative Negative Swab 06/22/2024 3:38 PM PLASMA PROCESSOR us Emiliano Trinidad NP POINT OF CARE TEST ORDERABLES F inal Result * Dexa Axial Skeleton Bone Density 1 or 2 Site (01/08/2021 11:43 AM CDT) Anatomical Region Laterality Modality Body N/A Other 01/08/2021 8:03 PM CDT Narrative 01/08/2021 8:04 PM CDT EXAM DESCRIPTION: DEXA AXIAL SKELETON BONE DENSITY 1 OR MORE SITES REASON FOR STUDY: Post-menopausal female, screening for osteoporosis. Stable Attendant/Model: [employer] SL (S/N [id number]) CLINICAL INFORMATION: Current height: 63.5 inches Maximum [...] by Reymundo Moss M.D. AB: Report ID: [id number] Reading Location: [id number] Procedure Note Reymundo Moss MD - 01/08/2021 EXAM DESCRIPTION: DEXA AXIAL SKELETON BONE DENSITY 1 OR MORE SITES REASON FOR STUDY: Post-menopausal female, screening for osteoporosis. Stable Attendant/Model: [employer] (S/N [id number]) CLINICAL INFORMATION: Current height: 63.5 inches Maximum [...] Reymundo Moss M.D. AB: AB Report ID: [id number] Reading Location: [place] [address] [facility] IMG DXA PROCEDURES Final Result from Last 3 Months or Most Recently Relevant to Health Maintenance Insurance [facility] [employer] [facility] Advance Directives For more information, please contact: [phone] * Full Code (Latest Code Status on [...] 10:13 AM 03/08/2018 2:58 AM Care Teams Melt House Drag Operator Relationship Specialty Start Date End Date Jennifer Holliday MD [address] [id number] PCP - General 10/30/16 Jennifer Holliday MD [address] [id number] PCP - Essence Attributed PCP 08/02/13 Jeramy Lester MD [address] [place], [place] [id number] Surgeon Cardiothoracic Surgery 03/16/19 Karen Melendez MD [address] [facility] [place] [address] Consulting Physician Rheumatology 05/22/19 Alysia Ty MD [address] [facility] [address] [place] [address] Consulting Physician Gastroenterology 05/22/19 Reymundo Johnston MD [address] [facility] [address] [place] [address] Referring Physician Gynecology 12/03/20 Soledad West MD [address] [facility] [address] [place] [address] Consulting Physician Dermatology 10/29/21 Dusty Luciano IV, AUD [address] [place] [address] Data Management Engineer 10/29/21 Vasile Mcmanus MD [address] [place] [address] Surgeon Vascular Surgery 10/29/21 Kurtis Ochoa MD [address] [facility] [address] [place] [address] Referring Physician Orthopedic Surgery 07/06/22 Hermes Hernandez MD [address] [place] [address] Consulting Physician Neurology 08/06/22 Juan C Montelongo MD [address] [place] [address] Referring Physician Otolaryngology 10/26/23 Sergey Spence MD [address] [facility] [address] [place] [address] Referring Physician Gastroenterology 03/09/24 Juhi Connolly NP [address] [place] [address] [address] [place] [address] Neurology 04/10/24 Jailyn Downey, ATIYA [address] [place] [address] [address] [place] [address] Communication Instructor 06/16/24
[2024-09-16 16:19] LABS: Basophils Absolute Auto 0.1 K/mm3 (0.0-0.1); Basophils Percent Auto 0.7 % (0.2-1.2); Eosinophils Absolute Auto 0.1 K/mm3 (0-0.3); Eosinophils Percent Auto 1.3 % (0-4.4); Hematocrit 42.5 % (37.0-47.0); Hemoglobin 14.5 g/dL (12.0-15.0); Immature Granulocyte Absolute 0.05 K/mm3 (0.00-0.031); Immature Granulocyte Percent A 0.4 % (0-0.5); Lymphocytes Percent Auto 12.6 % (18.3-44.2); Mean Corpuscular HGB Conc 34.1 g/dl (32-36); Mean Corpuscular Hemoglobin 31.1 pg (26-34); Mean Corpuscular Volume 91.2 fl (80-100); Mean Platelet Volume 10.6 fl (7.4-10.4); Monocytes Percent Auto 8.7 % (2.6-8.5); Neutrophils Absolute Auto 8.5 K/mm3 (1.3-6.7); Neutrophils Percent Auto 76.3 % (45.5-73.1); Platelet Count Result 356 k/mm3 (150-375); Red Blood Count 4.66 M/mm3 (4.2-5.4); Red Cell Distribution Width 13.8 % (11.5-14.5); White Blood Count 11.2 K/mm3 (4.5-10.0)
[2024-09-16] MEDS: ACETAMINOPHEN 500 MG TABLET 1000 MG PO (16:21)
[2024-09-16] MEDS: SODIUM CHLORIDE 0.9% IV 1,000 ML 999 ML IV CONT (16:22)
[2024-09-16 16:35] LABS: Alanine Aminotransferase 27 U/L (6-35); Alkaline Phosphatase 99 U/L (38-126); Anion Gap 13 mmol/L (4-12); Aspartate Amino Transferase 31 U/L (14-36); Bilirubin,Total 1.4 mg/dL (0.2-1.3); Blood Urea Nitrogen 24 mg/dL (7-17); Calcium 10.1 mg/dL (8.4-10.2); Carbon Dioxide 22 mmol/L (22-30); Chloride 104 mmol/L (98-107); Estimated Glomerular Filt Rate 51; Glucose 154 mg/dL (65-110); Potassium 3.1 mmol/L (3.4-5.0); Sodium 139 mmol/L (137-145)
[2024-09-16 16:46] LABS: Add Urine Microscopic? YES; Appearance Urine Clear (Clear); Bacteria Urine 3+ /hpf; Bilirubin Urine 1+ (Negative); Blood Urine Negative (Negative); Color Urine Dark Yellow (Yellow); Glucose Urine UA Negative (Negative); Hyaline Casts Urine Present /lpf; Ketones Urine Trace mg/dL (Negative); Leukocyte Esterase Ur Trace LEU/UL (Negative); Need Manual Microscopic Reviewed; Nitrate Urine Negative (Negative); Protein Urine 3+ mg/dL (Negative); RBC Urine 0-2 /hpf (0-2); Specific Grav Ur 1.021 (1.001-1.035); Squamous Epithelial Cell Urine None Seen /hpf (Few); pH Urine 5.5 (5.0-9.0)
[2024-09-16 16:54] LABS: Influenza A QL RT-PCR Negative (Negative); Influenza B QL RT-PCR Negative (Negative); RSV RNA, RT-PCR Negative (Negative); SARS-CoV-2 RNA PCR Negative (Negative)
[2024-09-16] MEDS: POTASSIUM CHLORIDE 20 MEQ ER TABLET 40 MEQ PO (18:48)
== END 2024-09-16 18:57 | disposition home or self-care (01) ==
PROVIDERS: Emergency Provider Physician Assistant
DX: R51.9 Headache, unspecified (principal); R82.998 Other abnormal findings in urine; Z20.822 Contact with and (suspected) exposure to COVID-19; G30.9 Alzheimer's disease, unspecified; F02.80 Dementia in other diseases classified elsewhere, unspecified severity, without behavioral disturbance, psychotic disturbance, mood disturbance, and anxiety; I12.9 Hypertensive chronic kidney disease with stage 1 through stage 4 chronic kidney disease, or unspecified chronic kidney disease; N18.9 Chronic kidney disease, unspecified; E78.5 Hyperlipidemia, unspecified; E03.9 Hypothyroidism, unspecified; K21.9 Gastro-esophageal reflux disease without esophagitis; Z90.710 Acquired absence of both cervix and uterus; Z90.49 Acquired absence of other specified parts of digestive tract; Z79.899 Other long term (current) drug therapy; R00.0 Tachycardia, unspecified; I49.1 Atrial premature depolarization; I45.10 Unspecified right bundle-branch block; I51.7 Cardiomegaly; R94.31 Abnormal electrocardiogram [ECG] [EKG]
CPT/HCPCS: 36415; 70450; 71045; 80053; 81001; 85025; 87086; 87181; 87186; 87637; 93005; 96360; 99284; A9270; J7030

== ENCOUNTER 2025-01-07 11:51 | Inpatient (IN) | payer OTHER, SELFPAY ==
[2025-01-07] VITALS (19 sets, daily range): BP systolic 105–140; BP diastolic 55–88; PULSE 87–119; RESP 12–20; TEMP 36.4–37.9; O2SAT 84–98; BMI 23.8
--- NOTE | ~2025-01-07 | XR_ITS ---
Portable chest x-ray Comparison: 09/16/2024 Clinical History: Hypoxia Findings: There is extensive hazy airspace disease in the right midlung and lower lung tolbert. Left lung clear. Cardiomediastinal silhouette is stable. Bones and soft tissues are unremarkable. Impression: Probable multilobar right lung pneumonia. Asymmetric pulmonary edema less likely. Reviewed, dictated and finalized at [facility]. Impression: Probable multilobar right lung pneumonia. Asymmetric pulmonary edema less likel y.
--- NOTE | 2025-01-07 12:25 | ECG_ITS ---
Test Date: 2025-01-07 12:35:08 Measurements Intervals [place] Rate: 115 P: 40 MS: 164 QRS: -19 QRSD: 90 T: 41 QT: 322 QTc: 446 Interpretive Statements SINUS TACHYCARDIA INCOMPLETE RIGHT BUNDLE BRANCH BLOCK VOLTAGE CRITERIA FOR LVH MINIMAL Q WAVES- HIGH LATERAL LEADS BORDERLINE ST-T WAVE ABNORMALITY- HIGH LATERAL LEADS BASELINE ARTIFACT- I, II, III, AVR, AVL, AVF ABNORMAL ECG Compared to ECG 09/16/2024 16:12:28 HEART RATE HAS INCREASED Electronically Signed On 01-07-2025 12:40:43 CDT by Rm Vee D.O.
[2025-01-07 12:48] LABS: Add Urine Microscopic? NO; Appearance Urine Clear (Clear); Bilirubin Urine Negative (Negative); Blood Urine Negative (Negative); Color Urine Yellow (Yellow); Glucose Urine UA Negative (Negative); Hematocrit 42.7 % (37.0-47.0); Hemoglobin 13.3 g/dL (12.0-15.0); Ketones Urine Negative (Negative); Leukocyte Esterase Ur Negative LEU/UL (Negative); Mean Corpuscular HGB Conc 31.1 g/dl (32-36); Mean Corpuscular Hemoglobin 29.2 pg (26-34); Mean Corpuscular Volume 93.8 fl (80-100); Mean Platelet Volume 9.8 fl (7.4-10.4); Nitrate Urine Negative (Negative); Platelet Count Result 334 k/mm3 (150-375); Protein Urine Negative (Negative); Red Blood Count 4.55 M/mm3 (4.2-5.4); Red Cell Distribution Width 14.2 % (11.5-14.5); Specific Grav Ur 1.015 (1.001-1.035); White Blood Count 21.6 K/mm3 (4.5-10.0)
--- NOTE | 2025-01-07 12:55 | PC.NURSE ---
Patient placed on 3L NC oxygen due to sat being 84-86% on room air
[2025-01-07 12:57] LABS: Alanine Aminotransferase 27 U/L (6-35); Albumin Level 3.9 g/dL (3.5-5.1); Alkaline Phosphatase 100 U/L (38-126); Anion Gap 10 mmol/L (4-12); Aspartate Amino Transferase 34 U/L (14-36); Bilirubin,Total 0.7 mg/dL (0.2-1.3); Blood Urea Nitrogen 24 mg/dL (7-17); Calcium 9.6 mg/dL (8.4-10.2); Carbon Dioxide 22 mmol/L (22-30); Chloride 106 mmol/L (98-107); Estimated CRCL calculation 30 ml/min; Estimated Glomerular Filt Rate 44; Glucose 97 mg/dL (65-110); Potassium 4.1 mmol/L (3.4-5.0); Sodium 138 mmol/L (137-145); Total Protein 7.2 g/dL (6.3-8.2)
[2025-01-07 12:59] LABS: INR 1.1; Prothrombin Time 14.6 Seconds (11.1-14.7)
[2025-01-07 13:00] LABS: Partial Thromboplastin Time 23.3 Seconds (22.3-36.8)
[2025-01-07 13:11] LABS: Band Neutrophils Percent 8 % (0-6); Lymphocytes Absolute Manual 0.43 K/mm3 (1.1-4.5); Lymphocytes Percent Manual 2 % (18-44); Monocytes Absolute Manual 0.64 K/mm3 (0.1-0.90); Monocytes Percent Manual 3 % (3-9); Neutrophils Absolute Manual 20.52 K/mm3 (1.3-6.7); Neutrophils Percent Manual 87 % (46-73); Platelet Estimate Adequate (Adequate); Schistocytes None Seen; Total Cells Counted 100
--- NOTE | 2025-01-07 13:27 | ED.AMS ---
HPI - Altered Mental Status General Chief Complaint: Altered Mental Status Stated Complaint: ams Time Seen by Provider: 01/07/25 13:25 Source: patient, family and EMS Limitations: no limitations History of Present Illness HPI narrative: 84 YEARS OLD WHITE FEMALE CAME FROM ASSISTING LIVING BY AMBULANCE COMPLAINING OF INCREASED CONFUSION, WEAKNESS, LACK OF ENERGY IN THE LAST FEW DAYS. Related Data Home Medications ?Medication ?Instructions ?Recorded ?Confirmed ?Last Taken ?Type cyanocobalamin (vitamin B-12) 500 1,000 mcg PO DAILY 05/14/22 11/08/24 12/02/22 History mcg tablet (Vitamin B-12) cyclobenzaprine 10 mg tablet 10 mg PO BID PRN Muscle Spasm 05/14/22 11/08/24 Unknown History donepezil 5 mg tablet 10 mg PO HS 05/14/22 11/08/24 12/02/22 History eszopiclone 3 mg tablet 3 mg PO HS 05/14/22 11/08/24 12/02/22 History ezetimibe 10 mg tablet 10 mg PO DAILY 05/14/22 11/08/24 12/02/22 History folic acid 1 mg tablet 1 mg PO DAILY 05/14/22 11/08/24 12/02/22 History gabapentin 600 mg tablet 600 mg PO TID 05/14/22 11/08/24 12/02/22 History levothyroxine 50 mcg tablet 50 mcg PO DAILY 05/14/22 11/08/24 12/02/22 History pantoprazole 40 mg tablet,delayed 40 mg PO BID 05/14/22 11/08/24 12/02/22 History release dicyclomine 10 mg capsule See Rx Instructions .Route 12/03/22 11/08/24 Unknown History .COMPLEX PRN Diarrhea amlodipine 5 mg tablet 5 mg PO DAILY 02/20/24 11/08/24 Unknown History atorvastatin 10 mg tablet 10 mg PO DAILY 02/20/24 11/08/24 Unknown History duloxetine 60 mg capsule,delayed 60 mg PO DAILY 02/20/24 11/08/24 Unknown History release famotidine 20 mg tablet 20 mg PO BID PRN acid reflex 02/20/24 11/08/24 Unknown History losartan 50 mg tablet 50 mg PO HS 02/20/24 11/08/24 Unknown History multivitamin with minerals-folic 1 tablet PO DAILY 02/20/24 11/08/24 Unknown History acid 0.4 mg tablet prednisone 1 mg tablet 4 mg PO DAILY 02/20/24 11/08/24 Unknown History rivastigmine 9.5 mg/24 hour 1 patch topical DAILY 02/20/24 02/20/24 Unknown History transdermal patch memantine 5 mg tablet mg PO 11/08/24 11/08/24 Unknown History methocarbamol 500 mg tablet mg PO 11/08/24 11/08/24 Unknown History Allergies Allergy/AdvReac Type Severity Reaction Status Date / Time diphenhydramine (From AdvReac Agitated Verified 01/07/25 13:36 Benadryl) Review of Systems Review of Systems: All systems reviewed & are unremarkable except as noted in HPI and below PMFSH Past Medical History Medical History Presence of pancreatic duct stent Acquired leg length discrepancy Trochanteric bursitis, left hip Bacteremia Abnormal CT scan, esophagus Dementia Chronic GERD Anemia Encounter for postoperative care Chronic kidney disease Compression fracture of thoracic vertebra Closed intertrochanteric fracture of left hip Hypothyroidism Hyperlipidemia Hypertension Surgical History Surgical History S/P ORIF (open reduction internal fixation) fracture left hip H/O: hysterectomy Hx of cholecystectomy Family History Family History Father Heart disease Mother Heart disease Sibling Heart disease Malignant neoplasm of prostate Social History Social History Social History: She is and has 4 children . 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 She does not use any alcohol marijuana or illicit drug. Her is the durable power indoor landscape architect for healthcare. code full code Smoking status: Never smoker Alcohol intake: never Substance use: never Substance use type: does not use Do You Feel Safe in your Home?: Yes Lack of Transportation: No Lack of Food: Never True Current Housing: I Have Housing Concerned About Future Housing: No Difficulty Paying Gas/Electric Bills: No Difficulty Paying for Meds: No Currently Unemployed: No Education: High School Diploma/GED Difficulty w/ Childcare or Family Care: No Living arrangements: with family Gender identity (if verbalized by the patient): Female Spiritual care concerns: No Exam Narrative: GENERAL APPEARANCE: WELL-DEVELOPED, WELL-NOURISHED SKIN: NORMAL COLOR HEAD: NORMOCEPHALIC, NONTRAUMATIC EYES: CLEAR CONJUNCTIVA ENT: OROPHARYNX NORMAL, EARS NORMAL, NOSE NORMAL NECK: SUPPLE, NONTENDER CHEST AND RESPIRATORY: AIRWAY PATENT, NO RESPIRATORY DISTRESS, NO ACCESSORY MUSCLE USE HEART: REGULAR RATE/RHYTHM ABDOMEN: SOFT, NONTENDER, NO ORGANOMEGALY, QUIET BOWEL SOUNDS VASCULAR: NORMAL PERIPHERAL PULSES, NORMAL CAPILLARY REFILL. MUSCULOSKELETAL: NORMAL RANGE OF MOTION, NONTENDER BACK NEUROLOGIC: ALERT AND ORIENTED ?3, PUBLIC SAFETY OFFICER IS NORMAL TESTED, NO GROSS MOTOR DEFICIT Course Vital Signs Vital signs: Vital Signs Temperature 37.9 C H 01/07/25 11:49 Pulse Rate 119 H 01/07/25 11:49 Respiratory Rate 16 01/07/25 11:49 Blood Pressure 132/83 01/07/25 11:49 Pulse Oximetry 94 01/07/25 11:49 Oxygen Delivery Room Air 01/07/25 11:49 Temperature 37.9 C H 01/07/25 11:49 Pulse Rate 113 H 01/07/25 12:53 Respiratory Rate 19 01/07/25 12:53 Blood Pressure 118/72 01/07/25 12:53 Pulse Oximetry 98 01/07/25 12:55 Oxygen Delivery Nasal Cannula 01/07/25 12:55 Oxygen Flow Rate 3 01/07/25 12:55 MDM - Altered Mental Status MDM Narrative Medical decision making narrative: PATIENT CAME WITH GENERAL WEAKNESS AND FEVER VITAL SIGNS SHOWING HEART RATE OF 119, TEMPERATURE 37.9? PHYSICAL EXAMINATION SHOWING ILL LOOKING PATIENT OTHERWISE INSIGNIFICANT DIFFERENTIAL DIAGNOSIS INCLUDE URINARY TRACT INFECTION ELECTROLYTE IMBALANCE, DEHYDRATION, PNEUMONIA, DEHYDRATION BLOOD WORKUP TODAY INCLUDES CBC, CMP, BLOOD CULTURE, LACTIC ACID, CRP AND COAGS SHOWED WBC 21.6, CREATININE 1.1 C-REACTIVE PROTEIN 2.0 URINALYSIS SHOWED NO EVIDENCE OF INFECTION RESPIRATORY PANEL CAME BACK NEGATIVE FOR COVID FLU RSV CHEST X-RAY SHOWED MULTIFOCAL PNEUMONIA ADMIT TO HOSPITALIST ON ROCEPHIN AZITHROMYCIN. Differential Diagnosis Differential diagnosis: Likely other ( ABOVE) Medical Records Attestation: I reviewed the patient's medical records. Lab Data Attestation: I reviewed the patient's lab results. 01/07/25 12:43 01/07/25 12:43 Labs: Lab Results 01/07/25 01/07/25 01/07/25 Range/Units 12:42 12:43 13:37 WBC 21.6 H (4.5-10.0) K/mm3 RBC 4.55 (4.2-5.4) M/mm3 Hgb 13.3 (12.0-15.0) g/dL Hct 42.7 (37.0-47.0) % MCV 93.8 (80-100) fl MCH 29.2 (26-34) pg MCHC 31.1 L (32-36) g/dl RDW 14.2 (11.5-14.5) % Plt Count 334 (150-375) k/mm3 MPV 9.8 (7.4-10.4) fl Immature Gran % (Auto) Not Reportable Neut % (Auto) Not Reportable Lymph % (Auto) Not Reportable Mccracken % (Auto) Not Reportable Eos % (Auto) Not Reportable Baso % (Auto) Not Reportable Lymph # (Auto) Not Reportable [place]racken # (Auto) Not Reportable Eos # (Auto) Not Reportable Baso # (Auto) Not Reportable Abs Immat Gran (auto) Not Reportable Absolute Neuts (auto) Not Reportable Absolute Nucleated RBC Not Reportable Total Counted 100 Neutrophils % (Manual) 87 H (46-73) % Band Neutrophils % 8 H (0-6) % Lymphocytes % (Manual) 2 L (18-44) % Monocytes % (Manual) 3 (3-9) % Nucleated RBC % Not Reportable Abs Neuts (Manual) 20.52 H (1.3-6.7) K/mm3 Abs Lymphs (Manual) 0.43 L (1.1-4.5) K/mm3 Abs Monocytes (Manual) 0.64 (0.1-0.90) K/mm3 Platelet Estimate Adequate (Adequate) Schistocytes None seen PT 14.6 (11.1-14.7) Seconds INR 1.1 APTT 23.3 (22.3-36.8) Seconds Sodium 138 (137-145) mmol/L Potassium 4.1 (3.4-5.0) mmol/L Chloride 106 (98-107) mmol/L Carbon Dioxide 22 (22-30) mmol/L Anion Gap 10 (4-12) mmol/L BUN 24 H (7-17) mg/dL Creatinine 1.18 H (0.7-1.0) mg/dL Estim Creat Clear Calc 30 ml/min Estimated GFR 44 L (59 - ) Glucose 97 (65-110) mg/dL Lactic Acid 1.4 (0.7-2.0) mmol/L Calcium 9.6 (8.4-10.2) mg/dL Total Bilirubin 0.7 (0.2-1.3) mg/dL AST 34 (14-36) U/L ALT 27 (6-35) U/L Alkaline Phosphatase 100 (38-126) U/L C-Reactive Protein 2.0 H (<1.0) mg/dL Total Protein 7.2 (6.3-8.2) g/dL Albumin 3.9 (3.5-5.1) g/dL Urine Color Yellow (Yellow) Urine Appearance Clear (Clear) Urine pH 6.0 (5.0-9.0) Ur Specific [place] 1.015 (1.001-1.035) Urine Protein Negative (Negative) mg/dL Urine Glucose (UA) Negative (Negative) mg/dL Urine Ketones Negative (Negative) mg/dL Ur Blood (Man) Negative (Negative) Urine Nitrate Negative (Negative) Urine Bilirubin Negative (Negative) Urine Urobilinogen 1.0 (<2.0) mg/dL Leukocyte Esterase Rfl Negative (Negative) PHILLIP/UL Influenza A (RT-PCR) Pending Influenza B (RT-PCR) Pending RSV (RT-PCR) Pending SARS-CoV-2 RNA (RT-PCR) Pending 01/07/25 Range/Units 13:49 WBC (4.5-10.0) K/mm3 RBC (4.2-5.4) M/mm3 Hgb (12.0-15.0) g/dL Hct (37.0-47.0) % MCV (80-100) fl MCH (26-34) pg MCHC (32-36) g/dl RDW (11.5-14.5) % Plt Count (150-375) k/mm3 MPV (7.4-10.4) fl Immature Gran % (Auto) Neut % (Auto) Lymph % (Auto) [place]rack[place] % (Auto) Eos % (Auto) Baso % (Auto) Lymph # (Auto) [place] # (Auto) Eos # (Auto) Baso # (Auto) Abs Immat Gran (auto) Absolute Neuts (auto) Absolute Nucleated RBC Total Counted Neutrophils % (Manual) (46-73) % Band Neutrophils % (0-6) % Lymphocytes % (Manual) (18-44) % Monocytes % (Manual) (3-9) % Nucleated RBC % Abs Neuts (Manual) (1.3-6.7) K/mm3 Abs Lymphs (Manual) (1.1-4.5) K/mm3 Abs Monocytes (Manual) (0.1-0.90) K/mm3 Platelet Estimate (Adequate) Schistocytes PT 15.1 H (11.1-14.7) Seconds INR 1.2 APTT 39.2 H (22.3-36.8) Seconds Sodium (137-145) mmol/L Potassium (3.4-5.0) mmol/L Chloride (98-107) mmol/L Carbon Dioxide (22-30) mmol/L Anion Gap (4-12) mmol/L BUN (7-17) mg/dL Creatinine (0.7-1.0) mg/dL Estim Creat Clear Calc ml/min Estimated GFR (59 - ) Glucose (65-110) mg/dL Lactic Acid (0.7-2.0) mmol/L Calcium (8.4-10.2) mg/dL Total Bilirubin (0.2-1.3) mg/dL AST (14-36) U/L ALT (6-35) U/L Alkaline Phosphatase (38-126) U/L C-Reactive Protein (<1.0) mg/dL Total Protein (6.3-8.2) g/dL Albumin (3.5-5.1) g/dL Urine Color (Yellow) Urine Appearance (Clear) Urine pH (5.0-9.0) Ur Specific [place] (1.001-1.035) Urine Protein (Negative) mg/dL Urine Glucose (UA) (Negative) mg/dL Urine Ketones (Negative) mg/dL Ur Blood (Man) (Negative) Urine Nitrate (Negative) Urine Bilirubin (Negative) Urine Urobilinogen (<2.0) mg/dL Leukocyte Esterase Rfl (Negative) PHILLIP/UL Influenza A (RT-PCR) Influenza B (RT-PCR) RSV (RT-PCR) SARS-CoV-2 RNA (RT-PCR) Imaging Data Radiologist's impression: Impressions Chest X-Ray 01/07/25 13:18 Impression: Probable multilobar right lung pneumonia. Asymmetric pulmonary edema less likely. Critical Care Time Critical Care Time Critical Care Time: No Discharge Plan Discharge Clinical Impression: Pneumonia Patient Disposition: Still a Patient Condition: Stable Patient Language: Lithuanian Prescriptions: No Action methocarbamol 500 mg tablet PO memantine 5 mg tablet PO amoxicillin-pot clavulanate [Augmentin] 500-125 mg tablet 1 tablet PO Q12H Qty: 20 1RF Rx Instructions: take 1 tablet b.i.d. cyclobenzaprine 10 mg tablet 10 mg PO BID PRN (Reason: Muscle Spasm) gabapentin 600 mg tablet 600 mg PO TID donepezil 5 mg tablet 10 mg PO HS levothyroxine 50 mcg tablet 50 mcg PO DAILY pantoprazole 40 mg tablet,delayed release (DR/EC) 40 mg PO BID folic acid 1 mg tablet 1 mg PO DAILY ezetimibe 10 mg tablet 10 mg PO DAILY eszopiclone 3 mg tablet 3 mg PO HS cyanocobalamin (vitamin B-12) [Vitamin B-12] 500 mcg Tablet 1,000 mcg PO DAILY losartan 50 mg tablet 50 mg PO HS atorvastatin 10 mg Tablet 10 mg PO DAILY amlodipine 5 mg tablet 5 mg PO DAILY famotidine 20 mg tablet 20 mg PO BID PRN (Reason: acid reflex) prednisone 1 mg tablet 4 mg PO DAILY duloxetine 60 mg capsule,delayed release(DR/EC) 60 mg PO DAILY rivastigmine 9.5 mg/24 hour patch 24 hour 1 patch topical DAILY multivit with min-folic acid 0.4 mg Tablet 1 tablet PO DAILY carvedilol [Coreg] 3.125 mg Tablet 3.125 mg PO Q12HR Qty: 60 0RF dicyclomine 10 mg capsule See Rx Instructions .ROUTE .COMPLEX PRN (Reason: Diarrhea) Rx Instructions: Take 1-2 tabs daily as needed Follow-up/Referrals: PHYSICIAN NOT ON STAFF,NONSTAFF [Primary Care Provider] -
--- OUTSIDE RECORDS SUMMARY | 2025-01-07 13:31 | XMS_ITS | Patient Health Record ---
Author Organization [facility] francis Address [address] [facility] [address] [place] [address] Care Team Providers Care Regulatory Compliance Manager Name Role Phone Miya ORTIZ, Jennifer Primary Care Provider Karen Baker Unavailable [phone] Allergies No Known Allergies Reason For Referral Reason PT APPROVED TO SEE Maximilian MANCILLA FROM DR FREGOSO FOR 4 VISITS ENDING ON 04/01/2025 Diagnosis 1 Polymyalgia rheumati ca (M35.3) Referring Provider First Name Jennifer Referring Provider Last Name Miya Referring Provider Speciality Internal M edicine Referred Organization [facility] Referred Provider Karen Mancilla Referred Address [address] [facility] [address],[place], [place],[address], Referred Provider Specialty Rheumatology Referral Priority Routine Medications Medication SIG (Take, Route, Frequency, Duration) Notes Start Date End Date Status Losartan Potassium for BP 50 mg 1 at HS *Reorder from [facility] for eRx and Interaction Alerts* Active Pantoprazole Sd - for esophagus 40 mg 1 b.i.d. *Reorder from [facility] for eRx and Interaction Alerts* Active Levothyroxine Sodium 50 MCG take 1 capsule (50 mcg) by oral route once daily Oral 1 Active Ezetimibe 10 MG take 1 tablet (10 mg) by oral route once daily Oral 1 Active amLODIPine Besylate 5 MG take 1 tablet (5 mg) by oral route once daily Oral 1 Active Vitamin E 1000 UNIT Oral Active Eszopiclone 3 mg 1 at HS for sleep *[facility]* Active Gabapentin 600 MG TAKE 1 TABLET BY MOUTH THREE TIMES A DAY Oral Active Donepezil HCl 5 MG take 1 tablet (5 mg) by oral route once daily in the evening Oral 1 Active Cyclobenzaprine HCl 10 MG 1 tablet twice per day prn Orally twice per day for 30 days Active Rivastigmine 9.5 MG/24HR Transdermal for 90 Days Active Dicyclomine HCl 10 MG Oral Active Multivitamin Adult take 1 capsule by oral route once Oral 1 Active Folic Acid 1 MG take 1 tablet (1 mg) by oral route once daily Oral 1 Active predniSONE 1 MG 3 Orally Once a day for 30 days 01/09/2025 Active Vitamin B-12 1000 MCG take 1 tablet by oral route once Oral 1 Active DULoxetine HCl 60 MG TAKE 1 CAPSULE BY MOUTH EVERY DAY Orally Once a day for 90 days Active Problems Problem Type SNOMED Code ICD Code Onset Dates Problem Status W/U Status Risk Notes Problem Polymyalgia rheumatica (00615381) PMR (polymyalgia rheumatica) (M35.3) Active confirmed Problem Polymyalgia rheumatica (91579088) Polymyalgia rheumatica (M35.3) Active confirmed Problem Backache (081452909) Dorsalgia, unspecified (M54.9) Active confirmed Problem Disorder of bone (64368496) Other specified disorders of bone density and structure, unspecified site (M85.80) Active confirmed Vital Signs Heart Rate 79 /min 09/21/2024 Temperature 98.1 degrees Fahrenheit 09/21/2024 Blood pressure diastolic 70 mm Hg 09/21/2024 Oximetry 94 % 09/21/2024 Height-cm 160.02 cm 09/21/2024 Weight-kg 65.8 kg 09/21/2024 Height 63 in 09/21/2024 Blood pressure systolic 112 mm Hg 09/21/2024 Weight 145.1 lbs 09/21/2024 BMI 25.7 kg/m2 09/21/2024 Encounters Encounter Location Date Provider Diagnosis [facility] [address] [place] [address] 04/13/2024 Karen Mancilla [facility] [address] [place] [address] 09/21/2024 Karen Mancilla PMR (polymyalgia rheumatica) M35.3 ; Lumbar back pain M54.50 and Osteopenia, unspecified location M85.80 [facility] [address] [place] [address] 09/19/2024 Karen Mancilla [facility] [address] [facility] [address] [place] [address] 09/20/2024 Karen [facility] [address] [address] [facility] [address] [place] [address] 10/11/2024 Karen [facility] [address] [facility] [address] [address] [place] [address] 11/09/2024 Karen Mancilla Assessments Encounter Date Diagnosis (ICD Code) Assessment Notes Treatment Notes Treatment Clinical Notes Section Notes 09/21/2024 PMR (polymyalgia rheumatica) (ICD-10 - M35.3) mildly symptomatic, mentioned PT, she declined, continue prednisone 3mg/day, cymbalta and gabapentin, return in 6 months 09/21/2024 Lumbar back pain (ICD-10 - M54.50) mildly symptomatic, mentioned PT, she declined, continue prednisone 3mg/day, cymbalta and gabapentin, return in 6 months 09/21/2024 Osteopenia, unspecified location (ICD-10 - M85.80) mildly symptomatic, mentioned PT, she declined, continue prednisone 3mg/day, cymbalta and gabapentin, return in 6 months Plan Of Treatment Next Appt Details Provider Name:Karen Mancilla, 03/09 11:45:00 AM, [address] [facility] [address], [place], [address], Insurance Providers Payer Name Payer Address Payer Phone Subscriber Number Group Number Insured Name Patient Relationship to Insured Coverage Start Date Coverage End Date [facility] [address] [place] [address] [id number] Malini Joe Self - patient is the insured [employer] [address] [place] [address] [id number] Malini Joe Self - patient is the insured 1 DO NOT USE [id number] Malini Joe Self - patient is the [...]
--- OUTSIDE RECORDS SUMMARY | 2025-01-07 13:31 | XMS_ITS | Referral Summary ---
Author Organization [facility] Address [address] [place] [phone] Care Team Providers Care Tank Car Mechanic Name Role Phone Jeramy Lester MD Unavailable Reymundo Johnston MD Unavailable ADELAIDE Luciano IV, C Joseph Unavailable [phone] Vasile Mcamnus MD Unavailable Kurtis Ochoa MD Unavailable Hermes Hernandez MD Unavailable Juan C Montelongo MD Unavailable Sergey Spence MD Unavailable + Juhi Connolly NP Unavailable Jailyn Sue RN Unavailable Jennifer Holliday MD Primary Care Provid er Encounters Date Type Department Care Team Description 01/01/2025 Orders Only [facility] at [address], [place] [address] Jennifer Holliday MD Hematuria, unspecified type (Primary Dx) 12/30/2024 Results Follow-Up [facility] ([facility]) - [facility] Urology [address] [facility] 11th [place] [address] [place] [phone] Chest W Contrast 12/29/2024 Telephone [facility] Primary Care at [facility] - [address] [place] [phone] Jennifer Holliday MD After Hours 12/29/2024 Orders Only [facility] Primary Care at [facility] - [address] [place] [phone] Jennifer Holliday MD 12/29/2024 Telephone [facility] Primary Care at [facility] - [address] [place] [phone] Jennifer Holliday MD Test Results 12/28/2024 2:43 PM CDT - 12/28/2024 11:59 PM CDT Hospital Encounter [address] [address] Urinary tract infection without hematuria, site unspecified Discharge Disposition: Discharge to home or self care 12/28/2024 2:45 PM CDT Lab [facility] Outpatient Lab at [address] [phone] 12/26/2024 1:13 PM CDT - 12/26/2024 11:59 PM CDT Hospital Encounter [facility] [address] [place] [phone] Left renal mass Discharge Disposition: Discharge to home or self care 12/22/2024 Telephone [facility] Primary Care at [facility] - [address] [place] [phone] Jennifer Holliday MD Med Refill 12/21/2024 Orders Only [facility] Primary Care at [facility] - [address] [place] [phone] Jennifer Holliday MD 12/21/2024 Telephone [facility] Primary Care at [facility] - [address] [place] [phone] Jennifer Holliday MD Symptom Based Call 12/20/2024 9:15 AM CDT Office Visit [facility] [address], [place] [address] Franc Duarte II, MD Alzheimer's disease (HCC); Dementia of the Alzheimer's type, with late onset, with delusions (HCC) 12/08/2024 Telephone [facility] at [facility] - [address] [place] [phone] Jennifer Holliday MD Referral Request 12/07/2024 Telephone [facility] at [address] [phone] Jennifer Holliday MD 12/07/2024 Results Follow-Up [facility] Primary Care at [facility] - [address] [place] [phone] Jennifer Holliday MD Comprehensive metabolic panel, Albumin Creatinine Ratio, Urine, Lipid panel, Additional followed-up results: 5 12/06/2024 12:10 PM CDT Lab [address] [phone] Primary hypertension; Mixed hyperlipidemia; Prediabetes 12/06/2024 10:30 AM CDT Office Visit [facility] Primary Care at [facility] - [address] [place] [phone] Jennifer Holliday MD Urinary tract infection without hematuria, site unspecified (Primary Dx); Mixed hyperlipidemia; Major depressive disorder, recurrent episode, moderate (HCC); 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, unspecified dementia severity (HCC); Primary hypertension; Hypothyroidism, unspecified type; Gastroesophageal reflux disease, unspecified whether esophagitis present; Polymyalgia rheumatica; Prediabetes 12/03/2024 12:30 PM CDT Office Visit [facility] Care at [address] [phone] Emiliano Trinidad NP Other mucopurulent conjunctivitis of right eye (Primary Dx) 11/16/2024 1:30 PM CDT Office Visit [facility] [address] [place] [address] [address] [place] [address] Rosaline Putnam PA Left thyroid nodule (Primary Dx); Age-related osteoporosis without current pathological fracture 10/23/2024 1:00 PM CDT Office Visit [facility] [address] [place] [address] [address], [place] [address] Juhi Connolly NP CAREN on CPAP (Primary Dx) 10/11/2024 Orders Only [facility] Care at [facility] - [address] [place] [phone] Jennifer Holliday MD Encounter for immunization (Primary Dx) 10/10/2024 Telephone [facility] at [facility] - [address] [place] [phone] Jennifer Holliday MD Referral Request 10/10/2024 Telephone [facility] Care at [facility] - [address] [place] [phone] Jennifer Holliday MD Referral Request from Last 3 Months Allergies Active Allergy Reactions Criticality Noted Date Comments Diphenhydramine Mental status changes Low [address] (PROTONIX) 40 mg EC tablet Take 1 tablet (40 mg total) by mouth 2 (two) times a day Active multivitamin capsule Take 1 capsule by mouth every morning Active cyanocobalamin (Vitamin B-12) 1,000 mcg tabletIndications :Prevention of Vitamin B12 Deficiency Take 0.5 tablets (500 mcg total) by mouth every morning Active gabapentin (NEURONTIN) 600 mg tablet Take 1 tablet (600 mg total) by mouth 3 (three) times a day Active DULoxetine DR (CYMBALTA) 60 mg capsule Take 1 capsule (60 mg total) by mouth daily with breakfast Active predniSONE (DELTASONE) 1 mg tabletIndications :Anti-inflammator y Take 3 tablets (3 mg) by mouth daily Active dicyclomine (BENTYL) 10 mg capsule TAKE 1 CAPSULE BY MOUTH 1 - 2 TIMES EVERY DAY NEEDED 022 Active famotidine (PEPCID) 20 mg tablet Take 1 tablet (20 mg total) by mouth 2 (two) times a day as needed for heartburn 023 Active eszopiclone (LUNESTA) 3 mg tabletIndications :Insomnia Take 1 tablet (3 mg total) by mouth nightly Take immediately before bedtime Active brexpiprazole (Rexulti) 0.5 mg tablet 1 tablet (0.5 mg total) Active amLODIPine (NORVASC) 5 mg tablet TAKE 1 TABLET (5 MG TOTAL) BY MOUTH DAILY. 90 tablet 1 025 2024 Active carvediloL (COREG) 3.125 mg tablet TAKE 1 TABLET BY MOUTH TWICE A DAY WITH MEALS 180 tablet 1 025 Active atorvastatin (LIPITOR) 10 mg tablet TAKE 1 TABLET BY MOUTH DAILY 90 tablet 025 Active ezetimibe (ZETIA) 10 mg tablet TAKE 1 TABLET BY MOUTH EVERY DAY 100 tablet 1 025 Active levothyroxine (SYNTHROID) 50 mcg tablet TAKE 1 TABLET BY MOUTH EVERY DAY 100 tablet 1 025 Active methocarbamoL (ROBAXIN) 500 mg tabletIndications :Low back pain with bilateral sciatica, unspecified back pain laterality, unspecified chronicity TAKE 1 TABLET (500 MG TOTAL) BY MOUTH 2 (TWO) TIMES A DAY NEEDED FOR MUSCLE SPASMS 60 tablet 1 025 Active folic acid (FOLVITE) 1 mg tablet TAKE 1 TABLET BY MOUTH EVERY DAY 90 tablet 1 025 Active memantine (NAMENDA) 10 mg tabletIndications :Moderate to Severe Alzheimer's Type Dementia Take 1 tablet (10 mg total) by mouth 2 (two) times a day 60 tablet 5 025 2025 Active sulfamethoxazole- trimethoprim (BACTRIM DS) 800-160 mg per tablet Take 1 tablet by mouth 2 (two) times a day for 10 days 20 tablet 025 2024 Active losartan (COZAAR) 50 mg tablet TAKE 1 TABLET BY MOUTH EVERY DAY AT NIGHT 90 tablet 025 Active losartan (COZAAR) 50 mg tablet TAKE 1 TABLET BY MOUTH EVERY DAY AT NIGHT 100 tablet 025 2024 Discontinued memantine (NAMENDA) 5 mg tablet TAKE 1 TABLET BY MOUTH TWICE A DAY 180 tablet 1 025 2024 Discontinued(O ther) ofloxacin (OCUFLOX) 0.3 % ophthalmic solutionIndicatio ns:Other mucopurulent conjunctivitis of right eye Administer 1 drop into the right eye 4 (four) times a day for 7 days 5 mL 025 2024 nitrofurantoin monohydrate (MACROBID) 100 mg capsule Take 1 capsule (100 mg total) by mouth 2 (two) times a day for 5 days 10 capsule 025 2024 Active Problems Problem Noted Date Diagnosed Date CAREN on CPAP 02/16/2023 Pneumonia due to infectious organism 12/18/2022 Assessment & Plan (12/18/2022 12:06 PM CDT): Acute, Improving -Continue Bactrim until completion Cognitive communication deficit 06/15/2022 01/13/2023 Alzheimer's disease, unspecified 03/18/2022 Assessment & Plan (09/06/2024 1:21 PM TERMITE TREATER HELPER): Follow up with Nam[facility] Arthritis of right knee 02/05/2022 Assessment & Plan (03/24/2022 11:39 AM CDT): Patient appears to have a small effusion the knee and some reactive synovitis. Scheduled to see a life insurance salesperson in early April and who would be advisable to keep that appointment. It may be helpful to contact the life insurance salesperson let them know she is having acute [...] oxygen. Multifocal pneumonia 12/02/2020 Lesion of left levelock kidney 12/02/2020 Assessment & Plan (12/02/2020 11:11 PM CDT): Noted on CT scan. 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 Will consult Urology. 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 Mcmanus at [facility] on December 10. Patient has ecchymosis [...] 02/19/2020 Assessment & Plan (08/31/2024 9:46 AM TERMITE TREATER HELPER): Labs ordered Assessment & Plan (02/11/2021 12:53 [...] Left thyroid nodule 04/11/2018 Assessment & Plan (11/16/2024 3:48 PM CDT): Chronic problem, stable over time, reviewed records together. is concerned about it although Malini does not give any concerning compressive symptoms. I placed a thyroid ultrasound order, if she notices more compressive symptoms can do it closer to their home in [place] and we can review. But if no clinical change then do not need to repeat. I placed an order for TSH with next labs as well. Assessment & Plan (09/09/2023 8:21 AM TERMITE TREATER HELPER): Patient had left thyroid nodule for almost [...] in office 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 04/05/2018 Dorsalgia, unspecified 03/29/2018 Assessment & Plan (09/06/2024 1:22 PM TERMITE TREATER HELPER): Follow up with colletteaxin Sciatic pain 03/29/2018 Pleural mass 03/16/2018 Rib pain on right side 03/16/2018 Age-related osteoporosis wit hout current pathological fracture 06/23/2017 Assessment & Plan (11/16/2024 3:05 PM CDT): Chronic problem, not at goal. She has DEXA ordered but needs to go to [place] now for transportation. Placed external order, let us know when completed. She's agreeable now to considering Reclast, so will plan after DEXA returns to schedule Reclast infusion at [facility] infusion center. She has h/o GERD and esophageal dilation so PO bisphosphonate is not a good option for her. Assessment & Plan (09/06/2024 1:21 PM TERMITE TREATER HELPER): Follow up with Dr Day Assessment & Plan (09/09/2023 8:21 AM TERMITE TREATER HELPER): Osteoporosis with high-risk status post left hip [...] precautions Assessment & Plan (09/28/2017 9:37 PM TERMITE TREATER HELPER): recent DEXA scan results And recent labs [...] months Assessment & Plan (06/23/2017 9:27 AM TERMITE TREATER HELPER): Reviewed pt. Recent DEXA scan results And [...] 03/17/2017 Assessment & Plan (08/31/2024 9:46 AM TERMITE TREATER HELPER): Labs ordered Assessment & Plan (03/17/2017 11:16 AM CDT): Check cbc Gastroesophageal reflux disease 08/24/2016 Overview (11/05/2016): ESOPHAGEAL REFLUX Assessment & Plan (09/02/2024 11:01 PM TERMITE TREATER HELPER): Continue pantoprazole Assessment & Plan (12/02/2020 11:06 [...] at the next regular appointment. Polymyalgia rheumatica 09/26/2014 Overview (11/05/2016): PMR - Polymyalgia rheumatica Assessment & Plan (12/02/2020 11:07 PM CDT): Continue prednisone every other day Disorder of bone 01/17/2014 Overview (11/05/2016): ARTHROPATHY NOS-UNSPEC Malaise and fatigue 12/16/2013 Overview (11/05/2016): MALAISE AND FATIGUE NEC Arthralgia of multiple joints 12/16/2013 Overview (11/05/2016): JOINT PAIN-MULT JTS Myopathy 12/16/2013 Overview (11/06/2016): MYALGIA AND MYOSITIS NOS Chronic pain syndrome 08/15/2012 Overview (11/06/2016): Chronic pain syndrome Hyperlipidemia 07/11/2012 Overview (11/05/2016): Hyperlipidemia Assessment & Plan (08/31/2024 9:47 AM TERMITE TREATER HELPER): Labs ordered Continue zetia and atorvastatin Assessment & Plan (03/17/2017 11:05 AM CDT): Lipid abnormalities are improving with treatment. Nutritional counseling was provided. Lipids will be reassessed 4mos. Hypertension 07/11/2012 Overview (11/05/2016): Hypertension Assessment & Plan (08/31/2024 9:47 AM TERMITE TREATER HELPER): Stable continue Assessment & Plan (12/02/2020 11:06 [...] 05/16/2014 06/15/2018 Overview (11/05/2016): OSTEOPOROSIS NOS Immunizations Immunization Administration Dates Next Due Influenza, Quadrivalent, Hig h Dose, Preservative Free, Intrr 07/01/2021,05/29/2020 Influenza, Split 07/21/2013,06/09/2011, 0 Influenza, Trivalent, High D ose, Split, Preservative Free, Intramuscular 2019,04/20/2018,04/19/2018(Defer red: Other - Medication to be reordered for 04/20/2018),04/18/2018(),05/19/2017,,06/14/2015,05/16/2014, 014 Influenza, Trivalent, IM (MDV) 3,07/02/2012,05/20/2011,05/21 Influenza, Unspecified 12/06/2024(Deferr ed: Patient Refused),04/02/2023 [employer] SARS-CoV-2 Monovalent Vaccination (12+ Yrs) PURPLE 06/02/2023,07/10/2021,10/28/2020,10/07 Pneumococcal Conjugate PCV 13 01/30/2015 Pneumococcal Polysaccharide PPV23 06/15/2018 Tdap 02/15/2019 Social History Tobacco Use Types Packs/Day Years Used Date Smoking Tobacco: Former Cigarettes 1 26.3 0 [birth year]/11/1956 - 08/02/1982 Smokeless Tobacco: Never Tobacco Cessation:Counseling Given: Not Answered Alcohol Use Standard Drinks/Week Comments Yes 0 (1 standard drink = 0.6 oz pur e alcohol) occasionally [facility] Utilities Answer Date Recorded In the past 12 months has th e electric, gas, oil, or water company threatened to shut off services in your [...] often do you attend chur ch or adventism services? More than 4 times per year 02/25/2024 Do you belong to any clubs o r organizations such as tenriism groups, unions, fraternal or athletic groups, or [...] points, staff should administer the PHQ-9) 0 12/06/2024 Hunger Vital Sign Answer Date Recorded Within [...] any time in the past [facility], were you homeless or living in a correction (including now)? No 02/25/2024 Comments No Sex and Gender Information Value Date Recorded Sex Assigned at Not on file Legal Sex Female 11:24 PM TERMITE TREATER HELPER Gender Identity Female 02/03/2023 6:56 PM CDT Sexual Orientation Not on file Last Filed Vital Signs Vital Sign Reading Time Taken Comments Blood Pressure 144/72 12/20/2024 9:18 AM CDT Pulse 70 12/20/2024 9:18 AM CDT Temperature 36.3 C (97.4 F) 12/06/2024 10:23 AM CDT Respiratory Rate 18 12/20/2024 9:18 AM CDT Oxygen Saturation 94% 12/20/2024 9:18 AM CDT Inhaled Oxygen Concentration - - Weight 65 kg (143 lb 3.2 oz) 12/20/2024 9:18 AM CDT Height 152.4 cm (5') 12/20/2024 9:18 AM CDT Body Mass Index 27.97 12/20/2024 9:18 AM CDT Plan of Treatment Not on file Goals Goal Patient Goal Type Associated Problems Recent Progress Patient-Stated? Author AMBROSIO General Goal - Patient schedules and keeps appointments with all recommended providers O Care Management On track(2024 3:44 PM CDT) No Jono Boothe, RN Note: Problem: Potential [...] no additional falls during Care Management program O Care Management On track(2024 3:44 PM CDT) No Jailyn Sue, RN Note: Problem: At Risk for Falls [...] Associated Diagnosis Comments URINALYSIS, MICROSCOPIC ONLY Routine 12/28/2024 2:43 PM CDT Urinary tract infection without hematuria, site unspecified URINE CULTURE Routine 12/28/2024 2:43 PM CDT URINALYSIS AND REFLEX TO MICROSCOPIC AND CULTURE Routine 12/28/2024 2:43 PM CDT Urinary tract infection without hematuria, site unspecified CT ABDOMEN W WO CONTRAST Schedule Routine, Read Routine (OP Routine) 12/26/2024 1:47 PM CDT Left renal mass CT CHEST W CONTRAST Schedule Routine, Read Routine (OP Routine) 12/26/2024 1:47 PM CDT Left renal mass EGFR Routine 12/06/2024 12:10 PM CDT Primary hypertension HEMOGLOBIN A1C Routine 12/06/2024 12:10 PM CDT Prediabetes LIPID PANEL Routine 12/06/2024 12:10 PM CDT Mixed hyperlipidemia ALBUMIN CREATININE RATIO, URINE Routine 12/06/2024 12:10 PM CDT Primary hypertension COMPREHENSIVE METABOLIC PANEL Routine 12/06/2024 12:10 PM CDT Primary hypertension DEXA AXIAL SKELETON BONE DENSITY 1 OR MORE SITES Schedule Routine, Read Routine (OP Routine) 01/08/2021 11:43 AM CDT Osteopenia of left hip from Last 3 Months or Most Recently Relevant to Health Maintenance Results * (ABNORMAL) Urinalysis reflex to microscopic and culture Urine (12/28/2024 2:43 PM CDT) Color, ur Yellow Yellow Clarity, ur Turbid(A) Clear [facility] Specific gravity, ur 1.010 1.003 - 1.030 [facility] pH, urine 8.0 [facility] Comment: Interpretive Data U rine pH is affected by diet, medications, systemic acid-base disturbances, and renal tubular function. pH may affect urinary stone formation. For example, urine pH below 6.0 may help reduce the tendency for calcium phosphate stones and pH greater than 6.0 may reduce the tendency for uric acid stone formation. Source: [employer] Current Interpretive Data was last revised on 2017 Protein, ur ql Trace Negative [facility] Glucose, ur ql Negative Negative [facility] Ketones, ur Negative Negative [facility] Bilirubin, ur Negative Negative [facility] Blood, ur 2+(A) Negative [facility] Urobilinogen, ur <2.0 <2.0 mg/dL [facility] Nitrite, ur Negative Negative [facility] Leukocyte esterase, ur 4+(A) Negative [facility] UA reflex comment Reflex to microscopic UA will be performed. [facility] Urine 12/28/2024 2:43 PM CDT 12/28/2024 8:20 PM CDT Jennifer Holliday MD LAB MICROBIOLOGY - G ENERAL ORDERABLES Final Result Performing Organization Address [facility] Co de Phone Number STACEY [id number] [place] [address] * (ABNORMAL) Urinalysis, microscopic only (12/28/2024 2:43 PM CDT) WBC, ur >50(A) 0 - 5 /HPF RBC, ur 6-10(A) 0 - 2 /HPF [facility] Epithelial cells, squamous, ur 1-5 0 - 5 /HPF [facility] Culture Reflex Comment Reflex to urine culture will be performed. [facility] Urine 12/28/2024 2:43 PM CDT 12/28/2024 8:20 PM CDT Jennifer Holliday MD LAB URINE ORDERABLES Final Result Performing Organization Address [facility] Co de Phone Number STACEY ZAMBRANO [id number] Department [place] [address] * (ABNORMAL) Urine culture Urine (12/28/2024 2:43 PM CDT) Report Final Report: Greater than or equal to 100,000 colonies/mL of Proteus mirabilis (.) Comment:Testing performed by : [facility], [address] [facility], [place]., [address] Organism PROTEUS MIRABILIS [facility] Urine 12/28/2024 2:43 PM CDT 12/29/2024 12:14 AM CDT Narrative STACEY - 12/30/2024 2:50 PM CDT Urine culture reflexed based upon urinalysis results. Testing performed by [facility] Microbiology Laboratory ([phone]) Organism Antibiotic Method Susceptibility Proteus mirabilis Ampicillin INTERPRETATION Susceptible Proteus mirabilis Cefazolin INTERPRETATION Susceptible Proteus mirabilis Nitrofurantoin INTERPRETATION Resistant Proteus mirabilis Gentamicin INTERPRETATION Susceptible Proteus mirabilis Trimethoprim with Sulfamethoxazole I NTERPRETATION Susceptible Proteus mirabilis Meropenem INTERPRETATION Susceptible Proteus mirabilis Cefepime INTERPRETATION Susceptible Proteus mirabilis Ciprofloxacin INTERPRETATION Susceptible Proteus mirabilis Ceftazidime INTERPRETATION Susceptible Proteus mirabilis Ceftriaxone INTERPRETATION Susceptible Proteus mirabilis Piperacillin/Tazobactam INTERPRETATI ON Susceptible Proteus mirabilis Cephalexin INTERPRETATION Susceptible Proteus mirabilis Cefuroxime-axetil INTERPRETATION Susceptible Proteus mirabilis Cefdinir INTERPRETATION Susceptible Jennifer Holliday MD LAB MICROBIOLOGY - G ENERAL ORDERABLES Final Result STACEY [id number] Department [place] [address] * CT abdomen with and without contrast (12/26/2024 1:47 PM CDT) Anatomical Region Laterality Modality Body N/A Computed Tomogra phy 12/27/2024 5:59 PM CDT Impressions 12/28/2024 8:32 AM CDT Stable partially calcified exophytic left lower pole renal lesion. No abdominal metastatic disease or lymphadenopathy. 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 Colonic diverticulosis. Thoracolumbar levoscoliosis with chronic compression fractures of T9 and T11-T12 and severe central stenosis at L3-4. Electronically signed by: Nimco Neves M.D. Narrative 12/28/2024 8:32 AM CDT Examination: CT ABDOMEN W WO CONTRAST Date: 12/26/2024 1:15 PM Clinical History: Renal mass/cyst, indeterminate sp microwave ablation in 2020 Technique: Transaxial computed tomographic images of the abdomen were obtained prior to and following administration of 118 mL Optiray 350 intravenous contrast and according to standard protocol. Coronal and sagittal reformatted images were submitted by the technologist. Comparison: CT abdomen 12/24/2023. Findings: The visualized lung bases are clear. There is no pleural effusion. The liver is unremarkable except for subcentimeter left lobe cyst. The spleen and adrenals are not remarkable. Atrophic pancreas is seen. The gallbladder is absent. Mild biliary distention again noted consistent with postcholecystectomy change.. An 11 mm left lower pole exophytic lesion with coarse calcification and focal cortical defect/scarring is unchanged. Bilateral renal cortical scarring and minute hypoattenuating lesions possibly cysts noted without hydronephrosis or nephrolithiasis. Atherosclerotic moderate calcified nonaneurysmal aorta is present. A 9 mm rim calcified splenic artery aneurysm is unchanged. The portal, splenic vein and superior mesenteric vein are patent. Postop change at the gastric fundus with a small hiatal hernia is seen. Colonic diverticulosis and moderate stool burden is present.. Nondistended small bowel is seen. There is no free intraperitoneal air or fluid. There is no suspicious mesenteric or retroperitoneal lymphadenopathy. Moderate thoracolumbar levoscoliosis is seen. There is marked compression deformity at T9, mild to moderate at T11-T12 again seen. Disc bulge facet arthropathy and severe central stenosis is seen at L3-4. Procedure Note Nimco Neves MD - 12/28/2024 Examination: CT ABDOMEN W WO CONTRAST Date: 12/26/2024 1:15 PM Clinical History: Renal mass/cyst, indeterminate sp microwave ablation in 2020 Technique: Transaxial computed tomographic images of the abdomen were obtained prior to and following administration of 118 mL Optiray 350 intravenous contrast and according to standard protocol. Coronal and sagittal reformatted images were submitted by the technologist. Comparison: CT abdomen 12/24/2023. Findings: The visualized lung bases are clear. There is no pleural effusion. The liver is unremarkable except for subcentimeter left lobe cyst. The spleen and adrenals are not remarkable. Atrophic pancreas is seen. The gallbladder is absent. Mild biliary distention again noted consistent with postcholecystectomy change.. An 11 mm left lower pole exophytic lesion with coarse calcification and focal cortical defect/scarring is unchanged. Bilateral renal cortical scarring and minute hypoattenuating lesions possibly cysts noted without hydronephrosis or nephrolithiasis. Atherosclerotic moderate calcified nonaneurysmal aorta is present. A 9 mm rim calcified splenic artery aneurysm is unchanged. The portal, splenic vein and superior mesenteric vein are patent. Postop change at the gastric fundus with a small hiatal hernia is seen. Colonic diverticulosis and moderate stool burden is present.. Nondistended small bowel is seen. There is no free intraperitoneal air or fluid. There is no suspicious mesenteric or retroperitoneal lymphadenopathy. Moderate thoracolumbar levoscoliosis is seen. There is marked compression deformity at T9, mild to moderate at T11-T12 again seen. Disc bulge facet arthropathy and severe central stenosis is seen at L3-4. IMPRESSION: Stable partially calcified exophytic left lower pole renal lesion. No abdominal metastatic disease or lymphadenopathy. 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 Colonic diverticulosis. Thoracolumbar levoscoliosis with chronic compression fractures of T9 and T11-T12 and severe central stenosis at L3-4. Electronically signed by: Nimco Neves M.D. Lulu Pedersen MD IMG CT PROCEDURES Final Result * CT Chest W Contrast (12/26/2024 1:47 PM CDT) Anatomical Region Laterality Modality Body N/A Computed Tomogra phy 12/27/2024 6:12 PM CDT Impressions 12/28/2024 3:03 PM CDT No thoracic metastatic disease is seen. Left thyroid 2.4 cm nodule is increased in size. Correlate with follow-up ultrasound. Stable thoracic compression fractures. Electronically signed by: Nimco Neves M.D. Narrative 12/28/2024 3:03 PM CDT EXAMINATION: CT CHEST WITH INTRAVENOUS CONTRAST Date: 12/26/2024 1:15 PM History: Kidney cancer, recurrence, follow up, hx of rcc Technique: Transaxial computed tomographic images of the chest performed after the administration of 118 mL intravenous Optiray 350 with multiplanar coronal and oblique 2-D reformatted views obtained Comparison: Previous exams including CT chest 02/06/2022. Findings: The heart size is normal without pericardial effusion. Atherosclerotic mild calcified nonaneurysmal aorta is seen .No mediastinal, hilar, supraclavicular or axillary lymphadenopathy is noted. Thyromegaly with enhancing 2.4 cm left lobe nodule is increased from 2.1 cm. . No interval pulmonary nodule, consolidation or effusion noted.. There is marked compression deformity at T9, mild to moderate at T11-T12 again seen. Postop change at the gastric fundus with a small hiatal hernia is seen. Procedure Note Nimco Neves MD - 12/28/2024 EXAMINATION: CT CHEST WITH INTRAVENOUS CONTRAST Date: 12/26/2024 1:15 PM History: Kidney cancer, recurrence, follow up, hx of rcc Technique: Transaxial computed tomographic images of the chest performed after the administration of 118 mL intravenous Optiray 350 with multiplanar coronal and oblique 2-D reformatted views obtained Comparison: Previous exams including CT chest 02/06/2022. Findings: The heart size is normal without pericardial effusion. Atherosclerotic mild calcified nonaneurysmal aorta is seen .No mediastinal, hilar, supraclavicular or axillary lymphadenopathy is noted. Thyromegaly with enhancing 2.4 cm left lobe nodule is increased from 2.1 cm. . No interval pulmonary nodule, consolidation or effusion noted.. There is marked compression deformity at T9, mild to moderate at T11-T12 again seen. Postop change at the gastric fundus with a small hiatal hernia is seen. IMPRESSION: No thoracic metastatic disease is seen. Left thyroid 2.4 cm nodule is increased in size. Correlate with follow-up ultrasound. Stable thoracic compression fractures. Electronically signed by: Nimco Neves M.D. Lulu Pedersen MD [facility] CT PROCEDURES Final Result * eGFR (12/06/2024 12:10 PM CDT) eGFR 83 >=60 mL/min/1. 73 m2 Comment: Interpretive Data [...] was last reviewed 2021. Testing performed by: [facility], [facility] [address], [place] [address] Blood 12/06/2024 12:1 0 PM CDT 12/06/2024 12:25 PM CDT Jennifer Holliday MD LAB BLOOD ORDERABLES Final Result Performing Organization Address City/[facility] Co de Phone Number STACEY ZAMBRANO [address] [place] [address] * (ABNORMAL) Albumin Creatinine Ratio, Urine (12/06/2024 12:10 PM CDT) Albumin Ur 54.0 mg/L Comment: Interpretive Data No reference range established. Current interpretive data was last revised 2018. Creatinine Ur 69.8 mg/dL STACEY ZAMBRANO Comment: Interpretive Data No reference range established. Current interpretive data was last revised 2018. Albumin Creatinine Ratio, Ur 77(H) 1 - 29 mg/g STACEY ZAMBRANO Urine 12/06/2024 12:1 0 PM CDT 12/06/2024 5:37 PM CDT Jennifer Holliday MD LAB URINE ORDERABLES Final Result Performing Organization Address City/[facility] Co de Phone Number STACEY ZAMBRANO [address] [facility] [place] [address] * (ABNORMAL) Hemoglobin A1c (12/06/2024 12:10 PM CDT) Hgb A1C 5.9(H) 4.0 - 5.6 % Estimated Average Glucose 123 mg/dL STACEY ZAMBRANO Comment: The ADA recommends reporting an estimated Average Glucose (eAG) with all Hemoglobin A1c results using the equation derived from a study of 507 normal and diabetic adults. Minority populations were underrepresented and children were not included. (Diabetes Care 31:5720-2566, 2008). The eAG is not equivalent to a fasting glucose. Blood 12/06/2024 12:1 0 PM CDT 12/06/2024 5:34 PM CDT us Jennifer Holliday MD LAB BLOOD ORDERABLES Final Result STACEY ZAMBRANO [address] Department [place] [address] * Lipid panel (12/06/2024 12:10 PM CDT) Cholesterol 166 30 - 199 mg/dL Comment: Interpretive Data [...] last revised on 2018. Testing performed by: [facility], [facility] [address], [place] [address] Triglycerides 124 <=149 mg/dL STACEY ZAMBRANO Comment: Interpretive Data [...] last revised on 2018. Testing performed by: [facility], [address] [place] [address] HDL 71 >=40 mg/dL STACEY Comment: Interpretive Data Ages [...] last revised on 2018. Testing performed by: [facility], [place] [address] LDL, calculated 74 <=129 mg/dL [facility] Comment: Interpretive Data Ages < or = [...] last revised on 2024. Testing performed by: [facility], [address] [place] [address] Non-HDL Cholesterol 95 mg/dL STACEY Comment: Interpretive Data Ages < [...] last revised on 2018. Testing performed [facility] [facility] [address], [place] [address] Chol/HDL ratio 2 CERNER CH Comment:Testing performed by : [facility] [facility] [address], [place] [address] Blood 12/06/2024 12:1 0 PM CDT 12/06/2024 12:25 PM CDT Jennifer Holliday MD LAB BLOOD ORDERABLES Final Result [facility] [address] Department [place] [address] * Comprehensive metabolic panel (12/06/2024 12:10 PM CDT) Sodium 144 135 - 145 mmol/L Comment:Testing performed by : [facility] [address], [place] [address] Potassium, pl 3.5 3.3 - 4.9 mmol/L CERNER CH Comment:Testing performed by : [facility] [address], [place] [address] Chloride 101 97 - 110 mmol/L CERNER Comment:Testing performed by : [facility] [facility] [address], [place] [address] CO2 31 22 - 32 mmol/L CERNER CH Comment:Testing performed by : [facility] [address], [place] [address] Anion gap 12 2 - 15 mmol/L CERNER CH Comment:Testing performed by : [facility] [address], [place] [address] BUN 14 6 - 25 mg/dL CERNER CH Comment:Testing performed by : [facility] [address], [place] [address] Creatinine 0.72 0.60 - 1.10 mg/dL CERNER Comment: Icteric sample, test results may be affected. Testing performed by: [facility] [address], [place] [address] Glucose 90 70 - 199 mg/dL CERNER CH Comment: [...] was last revised 2022. Testing performed by: [facility] [address], [place] [address] Calcium 10.2 8.5 - 10.3 mg/dL CERNER CH Comment:Testing performed by : [facility] [address], [place] [address] Bilirubin, total 0.7 0.1 - 1.2 mg/dL CERNER CH Comment:Testing performed by : [facility] [address], [place] [address] Protein, pl 7.6 6.5 - 8.5 g/dL CERNER CH Comment:Testing performed by : [facility] [address], [place] [address] Albumin 4.5 3.5 - 5.0 g/dL CERNER CH Comment:Testing performed by : [facility] [address], [place] [address] Alk phos 108 40 - 130 Units/L CERNER CH Comment:Testing performed by : [facility] [address], [place] [address] ALT 20 7 - 45 Units/L CERNER CH Comment:Testing performed by : [facility] [address], [place] [address] AST 22 10 - 45 Units/L CERNER CH Comment:Testing performed by : [facility] [address], [place] [address] Blood 12/06/2024 12:1 0 PM CDT 12/06/2024 12:25 PM CDT Jennifer Holliday MD LAB BLOOD ORDERABLES Final Result STACEY ZAMBRANO [address] Department [place] [address] * Dexa Axial Skeleton Bone Density 1 or 2 Site (01/08/2021 11:43 AM CDT) Anatomical Region Laterality Modality Body N/A Other 01/08/2021 8:03 PM CDT Narrative 01/08/2021 8:04 PM CDT EXAM DESCRIPTION: DEXA AXIAL SKELETON BONE DENSITY 1 OR MORE SITES REASON FOR STUDY: Post-menopausal female, screening for osteoporosis. 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 AB: Report ID: [id number] Reading Location: [place] [address] Procedure Note Reymundo Moss MD - 01/08/2021 EXAM DESCRIPTION: DEXA AXIAL SKELETON BONE DENSITY 1 OR MORE SITES REASON FOR STUDY: Post-menopausal female, screening for osteoporosis. 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 AB: Report ID: [id number] Reading Location: [id number] Malini Day MD IMG DXA PROCEDURES Final Result from Last 3 Months or Most Recently Relevant to Health Maintenance Insurance [facility] Advance Directives For more information, please contact: [phone] * Full Code (Latest Code Status on [...] 10:13 AM 03/08/2018 2:58 AM Care Teams Tank Car Mechanic Relationship Specialty Start Date End Date Jennifer Holliday MD [address] [facility] [address], [place] [address] PCP - General Internal Medicine 01/03/25 Jeramy Lester MD Surgeon Cardiothoracic Surgery 03/16/19 Reymundo Johnston MD [address] [facility] [address] [place] [address] Referring Physician Gynecology 12/03/20 Dusty Luciano IV, AUD [address] [place] [address] Acute Care Certified Nursing Assistant 10/29/21 Vasile Mcmanus MD [address] [place] [address] Surgeon Vascular Surgery 10/29/21 Kurtis Ochoa MD [address] [facility] [address] [place] [address] Referring Physician Orthopedic Surgery 07/06/22 Hermes Hernandez MD [address] [address] Consulting Physician Neurology 08/06/22 Juan C Montelongo MD [address] [place] [address] Referring Physician Otolaryngology 10/26/23 Sergey Spence MD [address] [facility] [address] [place] [address] Referring Physician Gastroenterology 03/09/24 Juhi Connolly, EDILMA [address] [place] [address] [address], [place] [address] Neurology 04/10/24 Jailyn Sue, RN [address] [place] [address] [address] [place] [address] Geophysics Scientist 06/16/24
--- OUTSIDE RECORDS SUMMARY | 2025-01-07 13:31 | XMS_ITS | Clinical Summary ---
Author Organization [facility] Address [address] [place] [address] Care Team Providers Care Landscape Manager Name Role Phone Jennifer Holliday MD Primary Care Provid er Source Comments [employer] [facility],non-owned Affiliates and Associated Physician Practices is amultiple site organization consisting of ambulatory clinics and hospital sitesin [place], [place], [place] and [place]. This disclosure is being madepursuant to the Care Everywhere program and may not contain all information available regarding this patient. Last updated 18.[employer] Allergies No known active allergies Medications * Be aware that medications may not be up to date on this document. Alwaysverify current medications with the patient. ezetimibe (ZETIA) 10 MG tablet Take 10 mg by mouth once daily Active NIFEdipine CR 24hr (ADALAT CC) 60 MG tablet Take 60 mg by mouth once daily Take on an empty stomach. Active venlafaxine XR 24hr (EFFEXOR XR) 75 MG capsule Take 75 mg by mouth daily with breakfast Active pantoprazole EC (PROTONIX) 40 MG tablet 40 mg 2 times daily 6 Active eszopiclone (LUNESTA) 3 MG tablet Take 3 mg by mouth at bedtime Active predniSONE (DELTASONE) 5 MG tablet 3 mg once 6 Active Acetaminophen (TYLENOL) 325 MG CAPS Take 325 mg by mouth every 6 hours as needed Active losartan (COZAAR) 100 MG tablet Take 1 Tab by mouth once daily 30 Tab 1 7 Active dextromethorpha n-guaiFENesin ER 12hr (MUCINEX DM) 30-600 MG tablet Take 1 Tab by mouth 2 times daily 30 Tab 7 Active Additional Information Patient not taking.Reported on 08/25/2016 fluticasone propionate (FLONASE) 50 MCG/ACT nasal spray [place] 2 Sprays into each nostril once daily 1 Bottle 7 Active predniSONE (DELTASONE) 1 MG tablet 7 Active Active Problems Problem Noted Date Diagnosed [...] = 0.6 oz pur e alcohol) occ Comments No Sex and Gender Information Value Date Recorded Sex Assigned at Not on file Legal Sex Female 6:43 AM STRUCTURAL BIOLOGIST Gender Identity Not on file Sexual Orientation Not on file Last Filed Vital Signs Vital Sign Reading Time Taken Comments Blood Pressure 117/84 08/25/2016 11:55 AM STRUCTURAL BIOLOGIST Pulse 99 08/25/2016 11:55 AM STRUCTURAL BIOLOGIST Temperature 36.4 C (97.5 F) 08/15/2016 7:07 AM STRUCTURAL BIOLOGIST Respiratory Rate 18 08/15/2016 7:07 AM STRUCTURAL BIOLOGIST Oxygen Saturation 92% 08/15/2016 7:07 AM STRUCTURAL BIOLOGIST Inhaled Oxygen Concentration - - Weight 70.3 kg (155 lb) 08/25/2016 11:55 AM STRUCTURAL BIOLOGIST Height 164.5 cm (5' 4.75) 08/25/2016 11:[address] Body Mass Index 25.99 08/25/2016 11:55 AM STRUCTURAL BIOLOGIST Plan of Treatment Health Maintenance Due Date Last Done Comments BONE DENSITY TESTING 1941 DTAP/TDAP/TD VACCINES (1 - Tdap) 1960 PNEUMOCOCCAL VACCINE 50+ (1 of 1 - PCV) 1991 ZOSTER VACCINE (1 of 2) 1991 Respiratory Syncytial Virus (RSV) Vaccine Pt: or over 60 yrs (1 - 1-dose 75+ series) 2016 COVID-19 VACCINE ( season) 2024 DEPRESSION SCREENING 08/02/2024 INFLUENZA VACCINE (Season Ended) 2025 2019, 04/20/2018, 05/19/2017, Additional history exists HEPATITIS B VACCINE Aged Out No longe r eligible based on patient's age to complete this topic HIB VACCINE Aged Out No longer eligi ble based on patient's age to complete this topic HPV VACCINE Aged Out No longer eligi ble based on patient's age to complete this topic MENINGOCOCCAL (Group B) VACCINE SHARED DECISION-MAKING Aged Out No longer eligible based on patient's age to complete this topic MENINGOCOCCAL GROUPS A/C/Y/W VACCINE Aged Out No longer eligible based on patient's age to complete this topic Medical Devices Implanted Type Area Finisher Fine Diamond Dies Device Identifier Shelf Expiration Date Model / Serial / Lot Human Allograft Tissu Implanted:Qty : 1 on 01/06/2016 by Reymundo Shelley MD at [facility] [employer] [id number] / [id number] / Mesh Micro 6 X 8 Pc Implanted:Qty : 1 on 08/12/2016 by Reymundo Shelley MD at [facility] N/A: Abdomen [employer] 04/02/2017 [id number] / / [id number] Insurance MEDICARE Advance Directives * Full Code (Latest Code Status on File) Date Activated Date Inactivated Comments 08/12/2016 7:42 PM 08/15/2016 5:02 PM * Full Code Date Activated Date Inactivated Comments 01/06/2016 1:29 PM 01/08/2016 12:30 PM Care Teams Landscape Manager Relationship Specialty Start Date End Date Jennifer Holliday MD PCP - General Internal Medicine 10/10/15
--- OUTSIDE RECORDS SUMMARY | 2025-01-07 13:31 | XMS_ITS | Encounter Summary ---
Author Organization [facility] Address [address] [place] [address] Phone Care Team Providers Care Olericulture Teacher Name Role Phone Jennifer Holliday MD Primary Care Provid er Gentry Zamora MD Unavailable Brien Sue MD Unavailable Lucy Reyes RN Unavailable Zakiya Shaikh MD PhD Unavailable [phone] Jeramy Lester MD Unavailable Karen Melendez MD Unavailable Alysia Ty MD Unavailable Lucy Reyes RN Unavailable Reymundo Johnston MD Unavailable Natasha Holloway MA Unavailable Romie Mccord DO Unavailable Soledad West MD Unavailable ADELAIDE Luciano IV, C Joseph Unavailable Vasile Mcmanus MD Unavailable Lucy Reyes RN Unavailable Jerry Mahan MD Unavailable Lynn Edwards RN Unavailable Kurtis Ochoa MD Unavailable [phone] Eddie Munroe MD Unavailable Hermes Hernandez MD Unavailable Jessy Mckinney RN Unavailable Juan C Montelongo MD Unavailable Jono Boothe RN Unavailable [phone] Sergey Spence MD Unavailable + Juhi Connolly NP Unavailable Jailyn Sue RN Unavailable [phone] Jennifer Holliday MD Primary Care Provid er Encounter Details Date Type Department Care Team (Late st Contact Info) Description 05/02/2018 Telephone [facility] [address] [address] Haley Bergeron Social History Tobacco Use Types Packs/Day Years Used Date Smoking Tobacco: Former Cigarettes 1 25 0 08/02/1957 - 08/02/1982 Smokeless Tobacco: Never Alcohol Use Standard Drinks/Week Comments Yes 0 (1 standard drink = 0.6 oz pur e alcohol) occasionally Comments No Sex and Gender Information Value Date Recorded Sex Assigned at Not on file Legal Sex Female 11:24 PM CENTER MAKER HAND Gender Identity Female 02/03/2023 6:56 PM CDT [...] COVID: Suspected 07/02/2022 07/02/2022 07/02/2022 12:42 PM CENTER MAKER HAND documented as of this encounter Care Teams Olericulture Teacher Relationship Specialty Start Date End Date Jennifer Holliday MD [address] [facility] [address], [place] [address] PCP - General 10/30/16 01/02/25 Jennifer Holliday MD [address] [facility] [address] [place] [address] PCP - General Internal Medicine 01/03/25 [place] [address] [address] [facility] [address] [place] [address] Stair Builder Pulmonary Disease 03/25/18 02/03/23 Brien Sue MD [address] [place] [address] Medical Oncologist/Hematologi [facility] Oncology 03/25/18 07/05/22 Lucy Reyes RN [address] [place] [address] [address] [place] [address] Yard Jacker 04/21/18 05/29/18 Zakiya Shaikh MD PhD [address] [place] [address] [address] [place] [address] Medical Oncologist/Hematologi [facility] Oncology 02/22/19 02/03/23 Jeramy Lester MD [address] [place] [address] [address] [place] [address] Surgeon Cardiothoracic Surgery 03/16/19 Karen Melendez MD [address] [place] [address] [address] [place] [address] Consulting Physician Rheumatology 05/22/19 01/02/25 Alysia Ty MD [address] [place] [address] [address] [place] [address] Consulting Physician Gastroenterology 05/22/19 01/02/25 Lucy Reyes RN [address] [facility] [address] [place] [address] Yard Jacker 11/26/20 01/05/21 Reymundo Johnston MD [address] [facility] [address] [place] [address] Referring Physician Gynecology 12/03/20 Natasha Holloway MA [address] [facility] [address] [place] [address] ACO Care Inspector Wire Rope 10/06/21 10/14/21 Romie Mccord DO [address] [place] [address] [address] [place] [address] Consulting Physician Urology 10/29/21 02/03/23 Soledad West MD [address] [facility] [address] [place] [address] Consulting Physician Dermatology 10/29/21 01/02/25 Dusty Luciano IV, ADELAIDE [address] [place] [address] Corn Husker 10/29/21 Vasile Mcmanus MD [address] [place] [address] Surgeon Vascular Surgery 10/29/21 Lucy Reyes RN [address] [place] [address] [address] [place] [address] Yard Jacker 02/10/22 03/10/22 [place] [address] [address] [facility] [address] [place] [address] Surgeon Orthopedic Surgery 02/25/22 07/05/22 Lynn Edwards RN [address] [place] [address] [address] [place] [address] Yard Jacker 06/18/22 07/15/22 Kurtis Ochoa MD [address] [facility] [address] [address] Referring Physician Orthopedic Surgery 07/06/22 Eddie Munroe MD [address] [facility] [address] [address] Consulting Physician Neurosurgery 07/06/22 02/03/23 Hermes Hernandez MD [address] [place] [address] [address] Consulting Physician Neurology 08/06/22 Jessy Mckinney RN [address] [place] [address] [address] [place] [address] Yard Jacker 12/10/22 01/06/23 Juan C Montelongo MD [address] [place] [address] [address] [place] [address] Referring Physician Otolaryngology 10/26/23 Jono Boothe RN [address] [place] [address] [address] [place] [address] Yard Jacker 02/25/24 06/15/24 Sergey Spence MD [address] [place] [address] Referring Physician Gastroenterology 03/09/24 Juhi Connolly NP [address] [place] [address] [address], [place] [address] Neurology 04/10/24 Jailyn Sue, ATIYA [address] [place] [address] [address] [place] [address] Yard Jacker 06/16/24 documented as of this encounter
--- OUTSIDE RECORDS SUMMARY | 2025-01-07 13:31 | XMS_ITS | Clinical Summary ---
Author Organization [facility] Address [facility] [place] [address] Care Team Providers Care Recovery Coach Name Role Phone Jeramy Lester MD Unavailable Reymundo Johnston MD Unavailable ADELAIDE Luciano IV, C Joseph Unavailable Vasile Mcmanus MD Unavailable Kurtis Ochoa MD Unavailable Hermes Hernandez MD Unavailable Juan C Montelongo MD Unavailable Sergey Spence MD Unavailable + Juhi Connolly NP Unavailable Jailyn Sue RN Unavailable Jennifer Holliday MD Primary Care Provid er Allergies Active Allergy Reactions Criticality Noted Date [...] 03/18/2022 Assessment & Plan (09/06/2024 1:21 PM TYPECASTING MACHINE OPERATOR): Follow up with Namenda Arthritis of right knee 02/05/2022 Assessment & Plan (03/24/2022 11:39 AM CDT): Patient appears to have a small effusion the knee and some reactive synovitis. Scheduled to see a tandem mill sticker in early April and who would be advisable to keep that appointment. It may be helpful to contact the tandem mill sticker let them know she is having acute [...] oxygen. Multifocal pneumonia 12/02/2020 Lesion of left [place] kidney 12/02/2020 Assessment & Plan (12/02/2020 11:11 PM CDT): Noted on CT scan. 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 Will consult Urology. 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 Mcmanus at [facility] on December 10. Patient has ecchymosis of [...] 02/19/2020 Assessment & Plan (08/31/2024 9:46 AM TYPECASTING MACHINE OPERATOR): Labs ordered Assessment & Plan (02/11/2021 12:53 [...] do it closer to their home in [place] and we can review. But if no clinical change then do not need to repeat. I placed an order for TSH with next labs as well. Assessment & Plan (09/09/2023 8:21 AM TYPECASTING MACHINE OPERATOR): Patient had left thyroid nodule for almost [...] 03/29/2018 Assessment & Plan (09/06/2024 1:22 PM TYPECASTING MACHINE OPERATOR): Follow up with dirk Sciatic pain 03/29/2018 Pleural mass 03/16/2018 Rib pain on right side 03/16/2018 Age-related osteoporosis wit hout current pathological fracture 06/23/2017 Assessment & Plan (11/16/2024 3:05 PM CDT): Chronic problem, not at goal. She has DEXA ordered but needs to go to [place] now for transportation. Placed external order, let us know when completed. She's agreeable now to considering Reclast, so will plan after DEXA returns to schedule Reclast infusion at [facility] infusion center. She has h/o GERD and esophageal dilation so PO bisphosphonate is not a good option for her. Assessment & Plan (09/06/2024 1:21 PM TYPECASTING MACHINE OPERATOR): Follow up with Dr Day Assessment & Plan (09/09/2023 8:21 AM TYPECASTING MACHINE OPERATOR): Osteoporosis with high-risk status post left hip [...] precautions Assessment & Plan (09/28/2017 9:37 PM TYPECASTING MACHINE OPERATOR): recent DEXA scan results And recent labs [...] months Assessment & Plan (06/23/2017 9:27 AM TYPECASTING MACHINE OPERATOR): Reviewed pt. Recent DEXA scan results And [...] 03/17/2017 Assessment & Plan (08/31/2024 9:46 AM TYPECASTING MACHINE OPERATOR): Labs ordered Assessment & Plan (03/17/2017 11:16 AM CDT): Check cbc Gastroesophageal reflux disease 08/24/2016 Overview (11/05/2016): ESOPHAGEAL REFLUX Assessment & Plan (09/02/2024 11:01 PM TYPECASTING MACHINE OPERATOR): Continue pantoprazole Assessment & Plan (12/02/2020 11:06 [...] Hyperlipidemia Assessment & Plan (08/31/2024 9:47 AM TYPECASTING MACHINE OPERATOR): Labs ordered Continue zetia and atorvastatin Assessment & Plan (03/17/2017 11:05 AM CDT): Lipid abnormalities are improving with treatment. Nutritional counseling was provided. Lipids will be reassessed 4mos. Hypertension 07/11/2012 Overview (11/05/2016): Hypertension Assessment & Plan (08/31/2024 9:47 AM TYPECASTING MACHINE OPERATOR): Stable continue Assessment & Plan (12/02/2020 11:06 [...] Department Care Team Description 01/01/2025 Orders Only [facility] Group at [address] [phone] Jennifer Holliday MD Hematuria, unspecified type (Primary Dx) 12/30/2024 Results Follow[facility] [address] [place] [address] Advanced [facility] 11th [place] [phone] Chest W Contrast 12/29/2024 Telephone [facility] Primary Care at [facility] - [address] [place] [phone] Jennifer Holliday MD After Hours 12/29/2024 Orders Only [facility] Primary Care at [facility] - [address] [place] [phone] Jennifer Holliday MD 12/29/2024 Telephone [facility] Primary Care at [facility] [address] [phone] Jennifer Holliday MD Test Results 12/28/2024 2:45 PM CDT Lab [facility] Outpatient Lab at [address] [phone] 12/28/2024 2:43 PM CDT - 12/28/2024 11:59 PM CDT Hospital Encounter [address] [address] Urinary tract infection without hematuria, site unspecified Discharge Disposition: Discharge to home or self care 12/26/2024 1:13 PM CDT - 12/26/2024 11:59 PM CDT Hospital Encounter [facility] [address] [place] [phone] Left renal mass Discharge Disposition: Discharge to home or self care 12/22/2024 Telephone [facility] Primary Care at [facility] - [address] [place] [phone] Jennifer Holliday MD Med Refill 12/21/2024 Orders Only [facility] Primary Care at [facility] - [address] [place] [phone] Jennifer Holliday MD 12/21/2024 Telephone [facility] Primary Care at [facility] - [address] [place] [phone] Jennifer Holliday MD Symptom Based Call 12/20/2024 9:15 AM CDT Office Visit [facility] [address] [place] [phone] Franc Duarte II, MD Alzheimer's disease (HCC); Dementia of the Alzheimer's type, with late onset, with delusions (HCC) 12/08/2024 Telephone [facility] Medical [facility] Primary Care at [facility] - [address] [place] [phone] Jennifer Holliday MD Referral Request 12/07/2024 Telephone [facility] at [address] [phone] Jennifer Holliday MD 12/07/2024 Results Follow-Up [facility] Primary Care at [facility] - [address] [place] [phone] Jennifer Holliday MD Comprehensive metabolic panel, Albumin Creatinine Ratio, Urine, Lipid panel, Additional followed-up results: 5 12/06/2024 12:10 PM CDT Lab [address] [phone] Primary hypertension; Mixed hyperlipidemia; Prediabetes 12/06/2024 10:30 AM CDT Office Visit [facility] Primary Care at [facility] - [address] [place] [phone] Jennifer Holliday MD Urinary tract infection without hematuria, site unspecified (Primary Dx); Mixed hyperlipidemia; Major depressive disorder, recurrent episode, moderate (HCC); 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, unspecified dementia severity (HCC); Primary hypertension; Hypothyroidism, unspecified type; Gastroesophageal reflux disease, unspecified whether esophagitis present; Polymyalgia rheumatica; Prediabetes 12/03/2024 12:30 PM CDT Office Visit [facility] Counts Include 234 Beds At [facility] Care at [address] [phone] Emiliano Trinidad NP Other mucopurulent conjunctivitis of right eye (Primary Dx) 11/16/2024 1:30 PM CDT Office Visit [facility] Specialists of [address], [place] [address] Rosaline Putnam PA Left thyroid nodule (Primary Dx); Age-related osteoporosis without current pathological fracture 10/23/2024 1:00 PM CDT Office Visit [facility] Neurology [address] [address] Juhi Connolly, EDILMA CAREN on CPAP (Primary Dx) 10/11/2024 Orders Only [facility] Primary Care at [facility] - [address] [place] [phone] Jennifer Holliday MD Encounter for immunization (Primary Dx) 10/10/2024 Telephone [facility] Primary Care at [facility] - [address] [place] [phone] Jennifer Holliday MD Referral Request 10/10/2024 Telephone [facility] Primary Care at [facility] - [address] [place] [phone] Jennifer Holliday MD Referral Request from Last 3 Months Immunizations Immunization Administration Dates Next Due Influenza, Quadrivalent, Hig h Dose, Preservative Free, Intrr 07/01/2021,05/29/2020 Influenza, Split 07/21/2013,06/09/2011, 0 Influenza, Trivalent, High D ose, Split, Preservative Free, Intramuscular 2019,04/20/2018,04/19/2018(Defer red: Other - Medication to be reordered for 04/20/2018),04/18/2018(),05/19/2017,,06/14/2015,05/16/2014, 014 Influenza, Trivalent, IM (MDV) 3,07/02/2012,05/20/2011,05/21 Influenza, Unspecified 12/06/2024(Deferr ed: Patient Refused),04/02/2023 Pfizer SARS-CoV-2 Monovalent Vaccination [...] Medical Lap Hernia Repa ir Polymyalgia rheumatica Osteoporosis GERD (gastroesophageal reflux disease) Motion sickness Lung mass Urinary tract infection Thyroid nodule History of transfusion 2016 Scoliosis Smoking Skin cancer CAREN on CPAP [...] = 0.6 oz pur e alcohol) occasionally [employer] Utilities Answer Date Recorded In the past 12 months has Just Eat, gas, oil, or water [employer] threatened to shut off services in your [...] How often do you attend chur or congregational services? More than 4 times per year 02/25/2024 Do you belong to any clubs o r organizations such as sabianism groups, unions, fraternal or athletic groups, or [...] place to sleep or slept in a mcfp (including now)? No 12/10/2022 Housing Stability Vital [...] in the past 12 m [facility], were you homeless or living in a mcfp (including now)? No 02/25/2024 Comments No Sex and Gender Information Value Date Recorded Sex Assigned at Not on file Legal Sex Female 11:24 PM TYPECASTING MACHINE OPERATOR Gender Identity Female 02/03/2023 6:56 PM CDT [...] 12/20/2024 9:18 AM CDT Plan of Treatment Health Maintenance Due Date Last Done Comments Hepatitis B Screening 1958 Zoster Vaccine (1 of 2) 1991 Osteoporosis Screening-Bone Density Scan 01/08/2023 01/08/2021, 05/28/2017, 09/25/2013 Covid-19 Vaccine (5 - 2023-2 5 season) 2024 06/02/2023, 07/10/2021, 10/28/2020, Additional history exists Influenza Vaccine (Season Ended) 2025 05/20/2023, 04/02/2023, 06/08/2022, Additional history exists Well Visit 65+ 08/31/2025 08/31/2024, 06/02, 02/04/2023, Additional history exists Depression Screening 12/06/2025 12/06/2024, 08/31/2024, 10/26/2023, Additional history exists Fall Risk Assessment 12/06/2025 12/06/2024, 08/31/2024, 04/12/2024, Additional history exists DTaP/Tdap/Td Vaccine (2 - Td or Tdap) 02/15/2029 02/15/2019 Pneumococcal vaccine 65+ Completed 06/15/2018, 08/2014 Goals Goal Patient Goal Type Associated Problems Recent Progress Patient-Stated? Author AMBROSIO General Goal - Patient schedules and keeps appointments with all recommended providers ACO Care Management On track(2024 3:44 PM CDT) [...] tendency for uric acid stone formation. Source: [facility] Current Interpretive Data was last revised on [...] Reflex to microscopic UA will be performed. [facility] Urine 12/28/2024 2:43 PM CDT 12/28/2024 8:20 PM CDT Jennifer Holliday MD LAB MICROBIOLOGY - G ENERAL ORDERABLES Final Result Performing Organization Address [facility] Co de Phone Number STACEY ZAMBRANO [address] [employer] [place] [address] * (ABNORMAL) Urinalysis, microscopic only (12/28/2024 2:43 PM CDT) WBC, ur >50(A) 0 - 5 /HPF RBC, ur 6-10(A) 0 - 2 /HPF [facility] Epithelial cells, squamous, ur 1-5 0 - 5 /HPF [facility] Culture Reflex Comment Reflex to urine culture will be performed. [facility] Urine 12/28/2024 2:43 PM CDT 12/28/2024 8:20 PM CDT Jennifer Holliday MD LAB URINE ORDERABLES Final Result Performing Organization Address City/[facility] Co de Phone Number STACEY ZAMBRANO [address] [place] [address] * (ABNORMAL) Urine culture Urine (12/28/2024 2:43 PM CDT) Report Final Report: Greater than or equal to 100,000 colonies/mL of Proteus mirabilis (.) Comment:Testing performed by : [facility], [address] [place]., [address] Organism PROTEUS MIRABILIS STACEY ZAMBRANO Urine 12/28/2024 2:43 PM CDT 12/29/2024 12:14 AM CDT Narrative STACEY ZAMBRANO - 12/30/2024 2:50 PM CDT Urine culture reflexed based upon urinalysis results. Testing performed by [facility] Microbiology Laboratory ([phone]) Organism Antibiotic Method Susceptibility Proteus mirabilis Ampicillin [...] INTERPRETATION Susceptible Proteus mirabilis Cefdinir INTERPRETATION Susceptible us Jennifer Holliday MD LAB MICROBIOLOGY - G ENERAL ORDERABLES Final Result STACEY [address] Department [place] [address] * CT abdomen with and without contrast [...] by: Nimco Neves M.D. Lulu Pedersen MD IM CT PROCEDURES Final Result * CT Chest [...] by: Nimco Neves M.D. Lulu Pedersen MD IM CT PROCEDURES Final Result * eGFR (12/06/2024 [...] was last reviewed 2021. Testing performed by: [facility], [address] [place] [address] [address], [place] [address] Blood 12/06/2024 12:1 0 PM CDT 12/06/2024 12:25 PM CDT Jennifer Holliday MD LAB BLOOD ORDERABLES Final Result STACEY [address] Department [place] [address] * (ABNORMAL) Albumin Creatinine Ratio, [...] URINE ORDERABLES Final Result Performing Organization Address [facility] de Phone Number STACEY [address] [place] [address] * (ABNORMAL) Hemoglobin A1c (12/06/2024 12:10 PM CDT) Hgb A1C 5.9(H) 4.0 - 5.6 % Estimated Average Glucose 123 mg/dL STACEY ZAMBRANO Comment: The ADA recommends reporting an estimated Average Glucose (eAG) with all Hemoglobin A1c results using the equation derived from a study of 507 normal and diabetic adults. Minority populations were underrepresented and children were not included. (Diabetes Care 31:1671-8978, 2008). The eAG is not equivalent to a fasting glucose. Blood 12/06/2024 12:1 0 PM CDT 12/06/2024 5:34 PM CDT Jennifer Holliday MD LAB BLOOD ORDERABLES Final Result Performing Organization Address [facility] de Phone Number STACEY ZAMBRANO [address] [place] [address] * Lipid panel (12/06/2024 12:10 PM CDT) Pathologist [facility] Cholesterol 166 30 - 199 mg/dL Comment: [...] last revised on 2018. Testing performed by: [facility], [facility], [place] [address] Triglycerides 124 <=149 mg/dL STACEY ZAMBRANO Comment: [...] last revised on 2018. Testing performed by: [facility], [address] [place] [address] HDL 71 >=40 mg/dL STACEY Comment: Interpretive [...] last revised on 2018. Testing performed by: [facility], [address] [place] [address] LDL, calculated 74 <=129 mg/dL STACEY Comment: Interpretive Data Ages [...] last revised on 2024. Testing performed [facility] [address], [place] [address] Non-HDL Cholesterol 95 mg/dL CERRITIKA Comment: Interpretive Data Ages < or = [...] last revised on 2018. Testing performed [facility] [address], [place] [address] Chol/HDL ratio 2 [facility] Comment:Testing performed by : [facility] [address], [place] [address] Blood 12/06/2024 12:1 0 PM CDT 12/06/2024 12:25 PM CDT Jennifer Holliday MD LAB BLOOD ORDERABLES Final Result [facility] [address] Department [place] [address] * Comprehensive metabolic panel (12/06/2024 12:10 PM CDT) Sodium 144 135 - 145 mmol/L Comment:Testing performed by : [facility] [address], [place] [address] Potassium, pl 3.5 3.3 - 4.9 mmol/L STACEY Comment:Testing performed by : [facility] [address], [place] [address] Chloride 101 97 - 110 mmol/L STACEY Comment:Testing performed by : [facility] [address], [place] [address] CO2 31 22 - 32 mmol/L CERRITIKA Comment:Testing performed by : [facility] [address], [place] [address] Anion gap 12 2 - 15 mmol/L CERNER Comment:Testing performed by : [facility] [place] [address] BUN 14 6 - 25 mg/dL CERNER CH Comment:Testing performed by : [facility] [place] [address] Creatinine 0.72 0.60 - 1.10 mg/dL CERNER CH Comment: Icteric sample, test results may be affected. Testing performed by: [facility] [place] [address] Glucose 90 70 - 199 mg/dL CERNER Comment: Interpretive Data Fasting glucose >/= 126 [...] classification and Diagnosis of Diabetes Diabetes Care 202; 46: S19-S40. Current interpretive data was last revised 2022. Testing performed by: [facility] [place] [address] Calcium 10.2 8.5 - 10.3 mg/dL CERNER Comment:Testing performed by : [facility] [place] [address] Bilirubin, total 0.7 0.1 - 1.2 mg/dL CERNER Comment:Testing performed by : [facility] [place] [address] Protein, pl 7.6 6.5 - 8.5 g/dL CERNER CH Comment:Testing performed by : [facility] [place] [address] Albumin 4.5 3.5 - 5.0 g/dL CERNER CH Comment:Testing performed by : [facility] [place] [address] Alk phos 108 40 - 130 Units/L CERNER CH Comment:Testing performed by : [facility] [place] [address] ALT 20 7 - 45 Units/L CERNER CH Comment:Testing performed by : [facility] [place] [address] AST 22 10 - 45 Units/L STACEY ZAMBRANO Comment:Testing performed by : [facility], [address], [place] [address] Blood 12/06/2024 12:1 0 PM CDT 12/06/2024 12:25 PM CDT Jennifer Holliday MD LAB BLOOD ORDERABLES Final Result Performing Organization Address City/State/[facility] [place] Phone Number STACEY ZAMBRANO [address] Department [place] [address] * Dexa Axial Skeleton Bone Density 1 or 2 Site (01/08/2021 11:43 AM CDT) Anatomical Region Laterality Modality Body N/A Other 01/08/2021 8:03 PM CDT Narrative 01/08/2021 8:04 PM CDT EXAM DESCRIPTION: DEXA AXIAL SKELETON BONE DENSITY 1 OR MORE SITES REASON FOR STUDY: Post-menopausal female, screening for osteoporosis. Calculating Machine Mechanic/Model: SalesPortal SL (S/N [id number]) CLINICAL INFORMATION: Current height: 63.5 inches Maximum [...] by Reymundo Moss M.D. AB: Report ID: [id number] Reading Location: [id number] Procedure Note Reymundo Moss MD - 01/08/2021 EXAM DESCRIPTION: DEXA AXIAL SKELETON BONE DENSITY 1 OR MORE SITES REASON FOR STUDY: Post-menopausal female, screening for osteoporosis. Calculating Machine Mechanic/Model: Consignd (S/N [id number]) CLINICAL INFORMATION: Current height: 63.5 inches Maximum [...] by Reymundo Moss M.D. AB: Report ID: [id number] Reading Location: [place] [address] Malini Day MD IM DXA PROCEDURES Final Result from Last 3 Months or Most Recently Relevant to Health Maintenance Insurance [facility] Advance Directives For more information, please contact: [phone] * Full Code (Latest Code Status on [...] 10:13 AM 03/08/2018 2:58 AM Care Teams Recovery Coach Relationship Specialty Start Date End Date Jennifer Holliday MD [address] [address] PCP - General Internal Medicine 01/03/25 Jeramy Lester MD Surgeon Cardiothoracic Surgery 03/16/19 Reymundo Johnston MD [address] [facility] [address] [place] [address] Referring Physician Gynecology 12/03/20 Dusty Luciano IV, ADELAIDE [address] [place] [address] Psychologist Research Assistant 10/29/21 Vasile Mcmanus MD [address] [place] [address] Surgeon Vascular Surgery 10/29/21 Kurtis Ochoa MD [address] [facility] [address] [place], [place] [id number] Referring Physician Orthopedic Surgery 07/06/22 Hermes Hernandez MD [address] [facility] [address] [place] [address] Consulting Physician Neurology 08/06/22 Juan C Montelongo MD [address] [facility] [address] [place], [place] [address] Referring Physician Otolaryngology 10/26/23 Sergey Spence MD [address] [facility] [address] [facility] [address] [place] [address] Referring Physician Gastroenterology 03/09/24 Juhi Connolly, EDILMA [address] [place] [address] [address], [place] [address] Neurology 04/10/24 Jailyn Sue, ATIYA [address] [place] [address] [address] [place] [address] Self Pay Representative 06/16/24
--- OUTSIDE RECORDS SUMMARY | 2025-01-07 13:32 | XMS_ITS | Encounter Summary ---
Author Organization [facility] Address [address] [place] [address] Care Team Providers Care Director Of Photography Name Role Phone Jennifer Holliday MD Primary Care Provid er Gentry Zamora MD Unavailable [phone] Brien Sue MD Unavailable Zakiya Shaikh MD PhD Unavailable Jeramy Lester MD Unavailable Karen Melendez MD Unavailable Alysia Ty MD Unavailable [phone] Reymundo Johnston MD Unavailable Natasha Holloway MA Unavailable [phone] Romie Mccord DO Unavailable Soledad West MD Unavailable ADELAIDE Luciano IV, C Joseph Unavailable Vasile Mcmanus MD Unavailable Lucy Reyes RN Unavailable Jerry Mahan MD Unavailable [phone] Lynn Edwards RN Unavailable [phone] Kurtis Ochoa MD Unavailable [phone] Eddie Munroe MD Unavailable [phone] Hermes Hernandez MD Unavailable Jessy Mckinney RN Unavailable [phone] Juan C Montelongo MD Unavailable Jono Boothe RN Unavailable [phone] Sergey Spence MD Unavailable + Juhi Connolly NP Unavailable Jailyn Sue RN Unavailable [phone] Jennifer Holliday MD Primary Care Provid er Reason for Visit * Reason Onset Date Comments Scheduling Appointments 01/07/2021 REMINDER CALL FOR DEXA; NO ANSWER. Encounter Details Date Type Department Care Team (Late st Contact Info) Description 01/07/2021 Telephone [facility] [address] [place] [address] Matilde Crocker RT Scheduling Appointments (REMINDER CALL [...] than three times a week 11/27/2020 Attends Taoism Services Not on file 11/27 Active Member [...] on file Legal Sex Female 11:24 PM PHYSICAL THERAPY MANAGER Gender Identity Female 02/03/2023 6:56 PM [...] COVID: Suspected 07/02/2022 07/02/2022 07/02/2022 12:42 PM PHYSICAL THERAPY MANAGER documented as of this encounter Care Teams Director Of Photography Relationship Specialty Start Date End Date Jennifer Holliday MD [address] [place] [address] PCP - General 10/30/16 01/02/25 Jennifer Holliday MD [address] [place] [address] PCP - General Internal Medicine 01/03/25 [place] [address] [address] [facility] [address] [place] [address] Certified Real Estate Appraiser Pulmonary Disease 03/25/18 02/03/23 Brien Sue MD [address] [place] [address] Medical Oncologist/Hematologi [facility] Oncology 03/25/18 07/05/22 Zakiya Shaikh MD PhD [address] [place] [address] Medical Oncologist/Hematologi [facility] Oncology 02/22/19 02/03/23 Jeramy Lester MD [address] [place], [place] [address] Surgeon Cardiothoracic Surgery 03/16/19 Karen Melendez MD [address] [place], [place] [address] Consulting Physician Rheumatology 05/22/19 01/02/25 Alysia Ty MD [address] [place] [address] Consulting Physician Gastroenterology 05/22/19 01/02/25 Reymundo Johnston MD [address] [place], [place] [id number] Referring Physician Gynecology 12/03/20 Natasha Holloway MA [address] [place] [address] [address] [place] [address] ACO Care Data Typist 10/06/21 10/14/21 Romie Mccord DO [address] [place] [address] [address] [place] [address] Consulting Physician Urology 10/29/21 02/03/23 Soledad West MD [address] [facility] [address] [place] [address] Consulting Physician Dermatology 10/29/21 01/02/25 Dusty Luciano IV, AUD [address] [facility] [place] [place] [address] Trial Attorney 10/29/21 Vasile Mcmanus MD [address] [facility] [email or web address] [address] Surgeon Vascular Surgery 10/29/21 Lucy Reyes RN [address] [place] [address] [address] [place] [address] Program Manager 02/10/22 03/10/22 [place] [address] [address] Surgeon Orthopedic Surgery 02/25/22 07/05/22 Lynn Edwards RN [address] [place] [address] [address] [place] [address] Program Manager 06/18/22 07/15/22 Kurtis Ochoa MD [address] [facility] [address] [place], [place] [address] Referring Physician Orthopedic Surgery 07/06/22 Eddie Munroe MD [address] [facility] [address] [place] [address] Consulting Physician Neurosurgery 07/06/22 02/03/23 Hermes Hernandez MD [address] [place] [address] Consulting Physician Neurology 08/06/22 Jessy Mckinney, ATIYA [address] [place] [address] [address] [place] [address] Program Manager 12/10/22 01/06/23 Juan C Montelongo MD [address] [place] [address] [address] [place] [address] Referring Physician Otolaryngology 10/26/23 Jono Boothe RN [address] [place] [address] [address] [place] [address] Program Manager 02/25/24 06/15/24 Sergey Spence MD [address] [place] [address] Referring Physician Gastroenterology 03/09/24 Juhi Connolly, EDILMA [address] [place] [address] [address] [place] [address] Neurology 04/10/24 Jailyn Sue, ATIYA [address] [place] [address] [address] [place] [address] Program Manager 06/16/24 documented as of this encounter
--- OUTSIDE RECORDS SUMMARY | 2025-01-07 13:32 | XMS_ITS | Continuity of Care Document ---
Author Organization [employer] [facility] Address [address] [place] [address] Phone Care Team Providers Care Business Relations Manager Name Role Phone Tamia ORTIZ MD, Prasad Unavailable Unavailab le Allergies, Adverse Reactions, Alerts Substance Reaction Status Criticality No Known Allergies Active No Inform ation Medications Medication Instructions Dosage Effective Dates (start - stop) Status Comments prednisone 1 mg tablet take 1 tablet by oral route 4 times every day 1 MG - Active Zetia 10 mg tablet take 1 tablet by oral route every day 10 MG - Active alendronate 70 mg tablet take 1 tablet by oral route every week in the morning, at least 30 min before first food, beverage, or medication of day 70 MG - Active losartan 100 mg-hydrochlorothiazi de 12.5 mg tablet take 1 tablet by oral route every day 1.00 tablet - Active omeprazole 40 mg capsule,delayed release take 1 capsule by oral route every day before a meal 40 MG - Active venlafaxine 75 mg tablet take 1 tablet by oral route 2 times every day with food 75 MG - Active ranitidine 150 mg tablet take 1 tablet by oral route 2 times every day - Active nifedipine ER 60 mg tablet,extended release take 1 tablet by oral route every day 60 MG - Active Procedures Procedure Date Office/outpatient Visit, Est Post-op Follow-up Visit Post-op Follow-up Visit Remove Cataract, Insert Lens Post-op Follow-up Visit No Charge Refraction Post-op Follow-up Visit Remove Cataract, Insert Lens Office/outpatient Visit, [facility] No Charge Refraction IOLMaster IOLMaster Advance Directives Directive Yes / No Effective Date File Name No Information Encounters Encounter Description Practice Location Reason(s) For Visit Diagnoses Date Provider Providers Copied on Encounter Office/outpa tient Visit, Est [facility], [address], [place], [place], [id number], tel:[phone] SEC Arjun GUADALUPE Professional 6 month IOL check (chief complaint) Pseudophakia 0- 5 Tamia Parham. [address], [place], [address], [place]. tel:[phone] Referring Provider: Sergio Langford OD, [facility] [address] [facility], [place], [address]. tel:[phone] [facility], [address], [place], [place], [address], [place] [phone] SEC Arjun GUADALUPE Professional No Information 5 Wankum Daquan. [address] [facility] [place], [address], [place]. tel:[phone] [facility], [address], [place], [place], [address], [place] [phone] SEC Arjun GUADALUPE Professional No Information 5 Wankum Daquan. [address] [facility] [address], [place], [place], [address], [place]. tel:[phone] [facility], [address], [place], [place], [address], [place] tel:[phone] SEC Arjun GUADALUPE Professional 2 WK PO PHACO OD (chief complaint) Follow-up examination after surgery 0 4 Tamia Parham. [address], [place], [address], [place]. tel:[phone] Referring Provider: Sergio Langford OD, [facility] [address] [place], [address]. tel:[phone] [facility], [address], [place], [place], [address], [place] tel:[phone] SEC Arjun GUADALUPE Professional F/u exam, postop (chief complaint) Follow-up examination after surgery 4 Earlene Butt. [address], [place], [place], [address], [place]. tel:[phone] Referring Provider: Sergio Langford OD, [facility] [address] [place], [address]. tel:[phone] [facility], [address], [place], [place], [address], [place] tel:[phone] Shana [facility] No Information 4 Tamia Parham. [address], [place], [address], [place]. tel:[phone] Referring Provider: Daquan Lanier, [address], [place], [address] . tel:[phone] [facility], [address], [place], [place], [address], [place] tel:[phone] SEC Arjun GUADALUPE Professional 2 WK PO PHACO OS (chief complaint) Follow-up examination after surgery 4 Earlene Butt. [address], [place], [place], [address], [place]. tel:[phone] Referring Provider: Sergio Langford OD, [facility] [address] [place], [address]. tel:[phone] [facility], [address], [place], [place], [address], [place] tel:[phone] SEC Arjun GUADALUPE Professional 1 DAY PO PHACO IOL OS (chief complaint) Follow-up examination after surgery 4 Tamia Parham. [address], [place], [place], [facility], [place]. tel:[phone] Referring Provider: Sergio Langford OD, [facility] [address] [place], [address]. tel:[phone] [facility], [address] [place] [address] [address], [place], [place], [address], [place] tel:[phone] [facility] No Information 4 Tamia Parham. [address], [place], [place], [facility], [place]. tel:[phone] Referring Provider: Sergio Langford OD, [facility] [address] [place], [address]. tel:[phone] Office/outpa tient Visit, [facility], [address] [place] [address] [address], [place], [place], [address], [place] tel:[phone] SEC Arjun GUADALUPE Professional Cataract Evaluation (chief complaint) Senile nuclear cataract May- 4 Tamia Parham. [address], [place], [address], [place]. tel:[phone] Referring Provider: Sergio Langford OD, [facility] [address] [place], [address]. tel:[phone] [facility], [address] [place] [address] [address], [place], [place], [address], [place] tel:[phone] SEC Dinora Read No Information 4 Earlene Butt. [address] [facility], [place], [place], [address], [place]. tel:[phone] Family History Family Member Type Diagnosis Age At Onset Problem (finding) Family history of diabetes mellitus type 2 Problem (finding) Family history of hyper tension Payers Payer name Insurance type Covered alliance party ID Randolph post(s) [employer] [id number] Social History Type Description Quantity Date Captured [...] Instructions Date Instruction Additional Infor paresh - Return in 1 year for a complet e exam. Related to See list of assessments above - Discussed diagnosi s in detail with [...] to See list of assessments above - One day s/p phaco with IOL OD. IOL in good position. Medication instillation and post op instructions reviewed. Pt understands shield use. RTC as scheduled or sooner if problems. Related to See list of assessments above - As scheduled Related to See l ist of assessments above - finish dropssome c onfusion about iol. she thought would just need reading rx and no glasses for dv.explained to her and her and they are happy to go with dv ou Related to Follow-up examination after surgery - keep appt for surg Related to Follow-up examination after surgery - 1 day post op Phac o with PCIOL OS, discussed post op instructions and medication use. Return to clinic as scheduled Related to Follow-up examination after surgery - as scheduled for post op Relat ed to Follow-up examination after surgery - Cataracts [...]
--- OUTSIDE RECORDS SUMMARY | 2025-01-07 13:32 | XMS_ITS ---
Author Organization [facility] Address [address] [facility] [address] [place] [address] Care Team Providers Care Mold Repair Technician Name Role Phone Miya ORTIZ, Jennifer Primary Care Provider Karen Baker [phone] REASON FOR VISIT 3 month follow up/flc Encounters Encounter Location Date Provider Diagnosis [facility] [address] [facility] [address] [place] [address] 08/03/2024 Karen Mancilla Plan Of Treatment Next Appt Details Provider Name:Karen Mancilla, 03/09 11:45:00 AM, [address] [employer] [facility] [address], [place], [address], Progress Notes * Malini JOE ADOB: (84 yo F)Acc No.[id number]:08/03/2024 Progress Notes Patient: Malini MAY Appointment Provider: Mignon MANCILLA MD :1940 A ge:84 Y S ex:Female Date:08/03/2024 [facility] Pcp:Jennifer Holliday MD Subjective: * Chief Complaints: * 1 . 3 month follow up/flc. * Medical History: Objective: * Vitals: Assessment: Plan: * Treatment: * Billing Information: * Visit Code: * Procedure Codes: * Electronic signature of Karen Mancilla MD on 01/07/2025 at 01:31 PM CDT Sign off status: Pending * Appointment Provider: Mignon MANCILLA MD Date: 0 08/03/2024 Generated for Nate madrid/Rodolfo/Jennifer on: 0 01/07/2025 01:31 PM CDT
--- OUTSIDE RECORDS SUMMARY | 2025-01-07 13:32 | XMS_ITS | Encounter Summary ---
Author Organization [facility] Address [address] [place] [address] Phone Care Team Providers Care Chief Ophthalmic Technician Name Role Phone Jennifer Holliday MD Primary Care Provid er Jeramy Lester MD Unavailable [phone] Karen Melendez MD Unavailable Alysia Ty MD Unavailable Reymundo Johnston MD Unavailable Soledad West MD Unavailable [phone] ADELAIDE Luciano IV, C Joseph Unavailable Vasile Mcmanus MD Unavailable Kurtis Ochoa MD Unavailable [phone] Hermes Hernandez MD Unavailable Juan C Montelongo MD Unavailable Sergey Spence MD Unavailable + Juhi Connolly NP Unavailable [phone] Jailyn Sue RN Unavailable [phone] Jennifer Holliday MD Primary Care Provid er Encounter Details Date Type Department Care Team (Late st Contact Info) Description 12/30/2024 Results Follow-Up [facility] - [facility] Urology [address] [facility] 11th [place] [address] [place] [address] Lulu Pedersen MD [address] [place] [address] CT Chest W Contrast Social History Tobacco Use Types Packs/Day Years Used Date Smoking Tobacco: Former Cigarettes 1 26.3 0 04/11/1956 - 08/02/1982 Smokeless Tobacco: Never Alcohol Use Standard Drinks/Week Comments Yes 0 (1 standard drink = 0.6 oz pur e alcohol) occasionally [employer] Util[employer] Answer Date Recorded In the past 12 months has [employer], gas, oil, or water [employer] threatened to shut off services in your [...] week 02/25/2024 How often do you attend up health system or mandaeism services? More than 4 times per year 02/25/2024 Do you belong to any clubs o r organizations such as anabaptism groups, unions, fraternal or athletic groups, or [...] place to sleep or slept in a fdc (including now)? No 12/10/2022 Housing Stability Vital [...] were you homeless or living in a fdc (including now)? No 02/25/2024 Comments No Sex and Gender Information Value Date Recorded Sex Assigned at Not on file Legal Sex Female 11:24 PM [employer] Gender Identity Female 02/03/2023 6:56 PM CDT Sexual Orientation Not on file documented as of this encounter Plan of Treatment Not on file documented as of this encounter Goals Goal Patient Goal Type Associated Problems [...] Management program ACO Care Management On track(2024 3:44 PM [...] SW if appropriate and patient is agreeable. documented as of this encounter Visit Diagnoses Not on filedocumented in this encounter Care Teams Chief Ophthalmic Technician Relationship Specialty Start Date End Date Jennifer Holliday MD [address] [facility] [address] [place] [address] PCP - General 10/30/16 01/02/25 Jennifer Holliday MD [address] [facility] [address], [place] [address] PCP - General Internal Medicine 01/03/25 Jeramy Lester MD [address] [facility] [address], [place] [address] Surgeon Cardiothoracic Surgery 03/16/19 Karen Melendez MD [address] [facility] [address], [place] [address] Consulting Physician Rheumatology 05/22/19 01/02/25 Alysia Ty MD [address] [address] Consulting Physician Gastroenterology 05/22/19 01/02/25 Reymundo Johnston MD [address] [facility] [address] [place] [address] Referring Physician Gynecology 12/03/20 Soledad West MD [address] [facility] [address] [place] [address] Consulting Physician Dermatology 10/29/21 01/02/25 Dusty Luciano IV, AUD [address] [place] [address] Supervisor Abattoir 10/29/21 Vasile Mcmanus MD [address] [place] [address] Surgeon Vascular Surgery 10/29/21 Kurtis Ochoa MD [address] [address] Referring Physician Orthopedic Surgery 07/06/22 Hermes Hernandez MD [address] [facility] [address] [place] [address] Consulting Physician Neurology 08/06/22 Juan C Montelongo MD [address] [facility] [address] [place] [address] Referring Physician Otolaryngology 10/26/23 Sergey Spence MD [address] [facility] [address] [place] [address] Referring Physician Gastroenterology 03/09/24 Juhi Connolly NP [address] [place] [address] [address] [address] Neurology 04/10/24 Jailyn Sue, ATIYA [address] [place] [address] [address] [place] [address] Agricultural Produce Commission Agent 06/16/24 documented as of this encounter
--- OUTSIDE RECORDS SUMMARY | 2025-01-07 13:32 | XMS_ITS | Encounter Summary ---
Author Organization [facility] Address [address] [place] [address] Care Team Providers Care Solar Pool Heating Installer Name Role Phone Jennifer Holliday MD Primary Care [facility] er Jeramy Lester MD Unavailable Karen Melendez MD Unavailable Alysia Ty MD Unavailable Reymundo Johnston MD Unavailable Soledad West MD Unavailable [phone] ADELAIDE Luciano IV, C Joseph Unavailable Vasile Mcmanus MD Unavailable Kurtis Ochoa MD Unavailable Hermes Hernandez MD Unavailable Juan C Montelongo MD Unavailable Sergey Spence MD Unavailable + Juhi Connolly NP Unavailable [phone] Jailyn Sue RN Unavailable [phone] Jennifer Holliday MD Primary Care Provid er Reason for Visit * Reason Onset Date Comments Symptom Based Call 12/21/2024 Encounter Details Date Type Department Care Team (Late st Contact Info) Description 12/21/[address] [facility] Primary Care at [facility] - [address] [place] [address] [address], [place] [id number] Jennifer Holliday MD [address] [place] [address] [address], [place] [address] Symptom Based Call Social History Tobacco Use Types Packs/Day Years Used Date Smoking Tobacco: Former Cigarettes 1 26.3 0 04/11/1956 - 08/02/1982 Smokeless Tobacco: Never Alcohol Use Standard Drinks/Week Comments Yes 0 (1 standard drink = 0.6 oz pur e alcohol) occasionally [facility] Utilities Answer Date Recorded In the past 12 months has [employer], gas, oil, or water company threatened to [...] How often do you attend chur or protestant services? More than 4 times per year 02/25/2024 Do you belong to any clubs o r organizations such as adventism groups, unions, fraternal or athletic groups, or [...] place to sleep or slept in a mcc (including now)? No 12/10/2022 Housing Stability Vital Sign Answer Angel e Recorded In the last 12 months, was t here a time when you were not able to pay the mortgage or rent on time? No 02/25/2024 In the past 12 months, how m any times have you moved where you were living? 0 02/25/2024 At any time in the past 12 m [facility], were you homeless or living in a mcc (including now)? 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 Non-Emergent. Is this a new or reoccurring symptom(s)? Reoccurring What have you tried to help your symptom(s)? N/a Why was appointment not scheduled? Patient seeking care without an appointment; appointment was offered by . Additional Comments: Patient reports burning with urination that started this morning. Patient states she has to leave town in the morning to visit a sick family member. [employer] offered SDA, however patient stated she cannot come in for an appt, requested rx sent to [facility] [employer] [facility]. Does message need to be routed? Yes-Action Needed documented in this encounter Plan of Treatment Not on [...] no additional falls during Care Management program [facility] Care Management On track(2024 3:44 PM CDT) [...] on filedocumented in this encounter Care Teams Solar Pool Heating Installer Relationship Specialty Start Date End Date Jennifer Holliday MD [address] [id number] PCP - General 10/30/16 01/02/25 Jennifer Holliday MD [address] [address] PCP - General Internal Medicine 01/03/25 Jeramy Lester MD [address] [address] Surgeon Cardiothoracic Surgery 03/16/19 Karen Melendez MD [address] [address] Consulting Physician Rheumatology 05/22/19 01/02/25 Alysia Ty MD [address] [address] Consulting Physician Gastroenterology 05/22/19 01/02/25 Reymundo Johnston MD [address] [address] Referring Physician Gynecology 12/03/20 Soledad West MD [address] [facility] [address] [place] [address] Consulting Physician Dermatology 10/29/21 01/02/25 Dusty Luciano IV, AUD [address] [facility] [place] [address] Information Support Project Manager 10/29/21 Vasile Mcmanus MD [address] [place] [address] Surgeon Vascular Surgery 10/29/21 Kurtis Ochoa MD [address] [place], [place] [address] Referring Physician Orthopedic Surgery 07/06/22 Hermes Hernandez MD [address] [place] [address] Consulting Physician Neurology 08/06/22 Juan C Montelongo MD [address] [place] [address] Referring Physician Otolaryngology 10/26/23 Sergey Spence MD [address] [place] [address] Referring Physician Gastroenterology 03/09/24 Juhi Connolly, EDILMA [address] [place] [address] [address] [place] [address] Neurology 04/10/24 Jailyn Sue, RN [address] [place] [address] [address] [place] [address] Patient Svcs Mgr 06/16/24 documented as of this encounter
--- OUTSIDE RECORDS SUMMARY | 2025-01-07 13:32 | XMS_ITS | Encounter Summary ---
Author Organization [facility] Address [address] [place] [address] Phone Care Team Providers Care Rn Emergency Name Role Phone Jennifer Holliday MD Primary Care Provid er Gentry Zamora MD Unavailable Brien Sue MD Unavailable Zakiya Shaikh MD PhD Unavailable Jeramy Lester MD Unavailable Karen Melendez MD Unavailable Alysia Ty MD Unavailable Lucy Reyes RN Unavailable [phone] Reymundo Johnston MD Unavailable Natasha Holloway MA Unavailable [phone] Romie Mccord DO Unavailable Soledad West MD Unavailable [phone] ADELAIDE Luciano IV, C Joseph Unavailable Vasile Mcmanus MD Unavailable Lucy Reyes RN Unavailable [phone] Jerry Mahan MD Unavailable [phone] Lynn Edwards RN Unavailable Kurtis Ochoa MD Unavailable [phone] Eddie Munroe MD Unavailable [phone] Hermes Hernandez MD Unavailable Jessy Mckinney RN Unavailable [phone] Juan C Montelongo MD Unavailable Jono Boothe RN Unavailable [phone] Sergey Spence MD Unavailable + Juhi Connolly NP Unavailable Jailyn Sue RN Unavailable [phone] Jennifer Holliday MD Primary Care Provid er [...] on file Legal Sex Female 11:24 PM PLATE GAUGER Gender Identity Female 02/03/2023 6:56 PM CDT [...] risk 07/02/2022 07/02/2022 07/12/2022 3:05 AM C COVID: Suspected 07/02/2022 07/02/2022 07/02/2022 12:42 PM PLATE GAUGER documented as of this encounter Care Teams Rn Emergency Relationship Specialty Start Date End Date Jennifer Holliday MD [address] [facility] [address], [place] [address] PCP - General 10/30/16 01/02/25 Jennifer Holliday MD [address] [facility] [address], [place] [address] PCP - General Internal Medicine 01/03/25 [place] [address] [facility] [address] [place] [address] Electrical Test Engineer Pulmonary Disease 03/25/18 02/03/23 Brien Sue MD [address] [facility] [place] [address] Medical Oncologist/Hematologi [facility] Oncology 03/25/18 07/05/22 Zakiya Shaikh MD PhD [address] [place], [place] [id number] Medical Oncologist/Hematologi Medical Oncology 02/22/19 02/03/23 Jeramy Lester MD [address] [place], [place] [id number] Surgeon Cardiothoracic Surgery 03/16/19 Karen Meelndez MD [address] [place] [address] Consulting Physician Rheumatology 05/22/19 01/02/25 Alysia Ty MD [address] [place] [address] Consulting Physician Gastroenterology 05/22/19 01/02/25 Lucy Reyes, ATIYA [address] [facility] [address] [place] [address] Automobile Engine Assembler 11/26/20 01/05/21 Reymundo Johnston MD [address] [facility] [address] [place] [address] Referring Physician Gynecology 12/03/20 Natasha Holloway MA [address] [place] [address] [address] [place] [address] [employer]CO Care Company Driver 10/06/21 10/14/21 Romie Mccord DO [address] [place] [address] [address] [place] [address] Consulting Physician Urology 10/29/21 02/03/23 Soledad West MD [address] [facility] [address] [place] [address] Consulting Physician Dermatology 10/29/21 01/02/25 Dusty Luciano IV, AUD [address] [place] [address] Plastics Bench Mechanic 10/29/21 Vasile Mcmanus MD [address] [place] [address] Surgeon Vascular Surgery 10/29/21 Lucy Reyes RN [address] [place] [address] [address] [place] [address] Automobile Engine Assembler 02/10/22 03/10/22 [place] [address] [facility] [address] [place] [address] Surgeon Orthopedic Surgery 02/25/22 07/05/22 Lynn Edwards RN [address] [place] [address] [address] [place] [address] Automobile Engine Assembler 06/18/22 07/15/22 Kurtis Ochoa MD [address] [place] [address] Referring Physician Orthopedic Surgery 07/06/22 Eddie Munroe MD [address] [place] [address] Consulting Physician Neurosurgery 07/06/22 02/03/23 Hermes Hernandez MD [address] [place] [address] Consulting Physician Neurology 08/06/22 Jessy Mckinney RN [address] [place] [address] [address] [place] [address] Automobile Engine Assembler 12/10/22 01/06/23 Juan C Montelongo MD [address] [place] [address] [address] [place] [address] Referring Physician Otolaryngology 10/26/23 Jono Boothe RN [address] [place] [address] [address] [place] [address] Automobile Engine Assembler 02/25/24 06/15/24 Sergey Spence MD [address] [facility] [address] [place] [address] Referring Physician Gastroenterology 03/09/24 Juhi Connolly NP [address] [place] [address] [address] [address] Neurology 04/10/24 Jailyn Sue, ATIYA [address] [place] [address] [address] [place] [address] Automobile Engine Assembler 06/16/24 documented as of this encounter
--- OUTSIDE RECORDS SUMMARY | 2025-01-07 13:32 | XMS_ITS | Encounter Summary ---
Author Organization [facility] Address [address] [place] [address] Care Team Providers Care E Commerce Project Manager Name Role Phone Jennifer Holliday MD Primary Care Provid er Gentry Zamora MD Unavailable [phone] Brien Sue MD Unavailable Zakiya Shaikh MD PhD Unavailable Jeramy Lester MD Unavailable Karen Melendez MD Unavailable Alysia Ty MD Unavailable [phone] Reymundo Johnston MD Unavailable [phone] Natasha Holloway MA Unavailable [phone] Romie Mccodr DO Unavailable Soledad West MD Unavailable ADELAIDE Luciano IV, C Joseph Unavailable Vasile Mcmanus MD Unavailable uLcy Reyes RN Unavailable Jerry Mahan MD Unavailable [phone] Lynn Edwards RN Unavailable [phone] Kurtis Ochoa MD Unavailable [phone] Eddie Munroe MD Unavailable Hermes Hernandez MD Unavailable Jessy Mckinney RN Unavailable Juan C Montelongo MD Unavailable Jono Boothe RN Unavailable [phone] Sergey Spence MD Unavailable + Juhi Connolly NP Unavailable Jailyn Sue RN Unavailable [phone] Jennifer Holliday MD Primary Care Provid er Reason for Visit * Reason Onset Date Comments Scheduling Appointments 02/27/2021 Confirmi ng mammogram appt Encounter Details Date Type Department Care Team (Late st Contact Info) Description 02/27/2021 Telephone [facility] [address] [place] [address] Kely Pizano RT Scheduling Appointments ( Confirming mammogram appt) [...] than three times a week 11/27/2020 Attends [employer] Not on file 11/27 Active Member [...] on file Legal Sex Female 11:24 PM WIRE THREADER Gender Identity Female 02/03/2023 6:56 PM CDT [...] COVID: Suspected 07/02/2022 07/02/2022 07/02/2022 12:42 PM WIRE THREADER documented as of this encounter Care Teams E Commerce Project Manager Relationship Specialty Start Date End Date Jennifer Holliday MD [address] [facility] [address] [place] [address] PCP - General 10/30/16 01/02/25 Jennifer Holliday MD [address] [facility] [address] [place] [address] PCP - General Internal Medicine 01/03/25 [place] [address] [facility] [address] [place] [address] Lawn Mower Sharpener Pulmonary Disease 03/25/18 02/03/23 Brien Sue MD [address] [place] [address] Medical Oncologist/Hematologi [facility] Oncology 03/25/18 07/05/22 Zakiya Shaikh MD PhD [address] [place] [address] Medical Oncologist/Hematologi [facility] Oncology 02/22/19 02/03/23 Jeramy Lester MD [address] [place] [address] Surgeon Cardiothoracic Surgery 03/16/19 Karen Melendez MD [address] [place], [place] [address] Consulting Physician Rheumatology 05/22/19 01/02/25 Alysia Ty MD [address] [place], [place] [address] Consulting Physician Gastroenterology 05/22/19 01/02/25 Reymundo Johnston MD [address] [place] [address] Referring Physician Gynecology 12/03/20 Natasha Holloway MA [address] [place] [address] [address] [place] [address] ACO [employer] Process Engineer 10/06/21 10/14/21 Romie Mccord DO [address] [place] [address] [facility] [address] [place] [address] Consulting Physician Urology 10/29/21 02/03/23 Soledad West MD [address] [facility] [address] [place] [address] Consulting Physician Dermatology 10/29/21 01/02/25 Dusty Luciano IV, AUD [address] [facility] [employer] [place], [place] [address] Orthopaedic Surgeon 10/29/21 Vasile Mcmanus MD [address] [facility] [place] [address] Surgeon Vascular Surgery 10/29/21 Lucy Reyes RN [address] [place] [address] [facility] [address] [place] [address] Lapping Machine Tender 02/10/22 03/10/22 [place] [address] [facility] [address] [place] [address] Surgeon Orthopedic Surgery 02/25/22 07/05/22 Lynn Edwards RN [address] [place] [address] [facility] [address] [place] [address] Lapping Machine Tender 06/18/22 07/15/22 Kurtis Ochoa MD [address] [facility] [address] [place] [address] Referring Physician Orthopedic Surgery 07/06/22 Eddie Munroe MD [address] [facility] [address] [place], [place] [address] Consulting Physician Neurosurgery 07/06/22 02/03/23 Hermes Hernandez MD [address] [place] [address] Consulting Physician Neurology 08/06/22 Jessy Mckinney RN [address] [place] [address] [address] [place] [address] Lapping Machine Tender 12/10/22 01/06/23 Juan C Montelongo MD [address] [place] [address] [address] [place] [address] Referring Physician Otolaryngology 10/26/23 Jono Boothe RN [address] [place] [address] [address] [place] [address] Lapping Machine Tender 02/25/24 06/15/24 Sergey Spence MD [address] [place] [address] Referring Physician Gastroenterology 03/09/24 Juhi Connolly NP [address] [place] [address] [address] [place] [address] Neurology 04/10/24 Jailyn Sue, ATIYA [address] [place] [address] [address] [place] [address] Lapping Machine Tender 06/16/24 documented as of this encounter
--- OUTSIDE RECORDS SUMMARY | 2025-01-07 13:32 | XMS_ITS | Continuity of Care Document ---
Author Organization [facility] Address [address] [place] [address] Phone Care Team Providers Care Medical Laboratory Technical Officer Name Role Phone Roberta Valenzuela Unavailable Unavailab [...] route every day 60 MG - Active levothyroxine 50 mcg tablet take 1 tablet by oral route every day 50 MCG - Active cyclobenzaprine 10 mg tablet take 1 tablet by oral route 2 times every day 10 MG - Active folic acid 1 mg tablet take 1 tablet by oral route every day 1 MG - Active Vitamin B-12 1,000 mcg [...] No Longer Active Procedures Procedure Date OFFICE [id number] OFFICE BFCBZ-WCE-PCCSICLP BODY MASS INDEX DOCD SYST BP >= 140 MM HG6 IT DIAST BP >= 90 MM HG OFFICE [id number]-BRH-[id number] BODY MASS INDEX DOCD SYST BP GE 130 - 139MM HG DIAST BP >= 90 MM HG OFFICE DVUMW-JCK-RUHVBHAK BODY MASS INDEX DOCD SYST BP >= 140 MM HG6 IT DIAST BP >= 90 MM HG OFFICE EKQYH-VZB-VSLYJCLZ BODY MASS INDEX DOCD SYST BP >= 140 MM HG6 IT DIAST BP >= 90 MM HG TISSUE EXAM BY PATHOLOGIST SPECIAL STAINS UPPER GI ENDOSCOPY BIOPSY DILATE ESOPHAGUS UNGUIDED OFFICE [id number]-ZZE-[id number] BODY MASS INDEX DOCD SYST BP >= 140 MM HG6 IT DIAST BP 80-89 MM HG FERRITIN LEVEL HEMATOCRIT (HCT) HEMOGLOBIN (HGB) TIBC, & % SATURATION IRON (FE), TOTAL ROUTINE VENIPUNCTURE OFFICE FLQDP-KLM-JCPDRFHP BODY MASS INDEX DOCD SYST BP >= [...] Diagnoses Date Provider Providers Copied on Encounter [facility], [address], [place], [place], [address] , tel: [phone] [facility] No Information 5 Terrence Granados. [address] [place], [place], [id number] , . tel: [phone] [facility], [address], [place], [place], [address] , tel: [phone] [facility] No Information 4 Terrence Granados. [address] [place], [place], [address] , . tel: [phone] OFFICE HHKZI-HFP-JJ PANDED [facility], [address], [place], [place], [address] , tel: [phone] [facility] Follow up (chief complaint) Anemia, unspecifiedGastro esophageal reflux disease, esophagitis presence not specifiedIncontin ence of feces, unspecified fecal incontinence type 4 Terrence Roberta. [address] [place], [place], [address] , . tel: [phone] Referring Provider: Jennifer Holliday, [address] [facility] [address], [place], [address] . tel:[phone] [facility], [address], [place], [place], [address] , [place] tel: [phone] [facility] No Information 4 Terrence Vangfer. [address] [place], [place], [address] , [place]. tel: [phone] [facility], [address], [place], [place], [address] , [place] tel: [phone] [facility] No Information 4 Ocampo Roberta. [address] [place], [place], [address] , [place]. tel: [phone] OFFICE RODEH-QCD-NB [facility], [address], [place], [place], [address] , [place] tel: [phone] [facility] annual (chief complaint) Incontinence of feces, unspecified fecal incontinence typeGastroesophag eal reflux disease, esophagitis presence not specifiedAnemia, unspecified Oct- 4 Terrence Roberta. [address] [place], [place], [address] , [place]. tel: [phone] Referring Provider: [address] [facility] [address], [place], [address] . tel:[phone] OFFICE FIPDW-FYM-QR [facility], [address], [place], [place], [address] , tel: [phone] [facility] 6 month follow up (chief complaint) Gastroesophageal reflux disease, esophagitis presence not specifiedIncontin ence of feces, unspecified fecal incontinence type Sep-2 8-202 3 Terrence Granados. [address] [place], [place], [address] , [place]. tel: [phone] Referring Provider: [address] [facility] [address], [place], [address] . tel:[phone] OFFICE ILUMS-HLG-EX [facility], [address], [place], [place], [address] , [place] tel: [phone] [facility] Follow up (chief complaint)A brooke reflux (chief complaint) Gastroesophageal reflux disease, esophagitis presence not specifiedRegurgit ation of foodIncontinence of feces, unspecified fecal incontinence type 3 Terrence Granados. [address] [place], [place], [address] , [place]. tel: [phone] Referring Provider: Roberta Ocampo, [address] [place] [address], [address] . tel:[phone] OFFICE ENHNB-YLL-GE [facility], [address], [place], [place], [address] , [place] tel: [phone] [facility] Medication refill (chief complaint) Incontinence of feces, unspecified fecal incontinence typeGastroesophag eal reflux disease, esophagitis presence not specifiedRegurgit ation of food 2 Terrence Granados. [address] [place] [address], [id number] , [place]. tel: [phone] Referring Provider: Jennifer Holliday, [address] [facility] [address], [place], [address] . tel:[phone] [facility], [address], [place], [place], [address] , [place] tel: [phone] [facility] No Information 0 Karson Hatfield. [address] [place] [address], [id number] , [place]. tel: [phone] Referring Provider: Tonio Holliday, [address] [place] [address], [place], [address] . tel:[phone] [facility], [address], [place], [place], [address] , tel: [phone] [facility] No Information 0 Bialecki Eldad. [address] [place], [place], [address] , . tel: [phone] Referring Provider: [address] [facility] [address], [place], [address] . tel:[phone] OFFICE NRWDJ-GPS-KV TAILED [facility], [address], [place], [place], [address] , tel: [phone] [facility] Dysphagia (chief complaint) Incontinence of feces, unspecified fecal incontinence typeAnemia, unspecified 0 Bialecki Eldad. [address] [place] [address], [id number] , . tel: [phone] Referring Provider: [address] [facility] [address], [place], [address] . tel:[phone] OFFICE OHJNH-QPH-WL PAND [facility], [address], [place], [place], [address] , tel: [phone] [facility] 3 month follow up (chief complaint) Incontinence of feces, unspecified fecal incontinence typeAnemia, unspecified 9 Terrence Granados. [address] [place] [address], [id number] , . tel: [phone] Referring Provider: [address] [facility] [address], [place], [address] . tel:[phone] [facility], [address], [place], [place], [address] , tel: [phone] [facility] Anemia (chief complaint) Weakness of both upper extremitiesDiarrh ea, unspecified typeAnemia, unspecified 9 Bialecki Eldad. [address] [place] [address], [id number] , [place]. tel: [phone] Referring Provider: Alysia Miles, [address] [place] [address], [place], [address] . tel:[phone] [facility], [address], [place], [place], [address] , [place] tel: [phone] [facility] Anemia (chief complaint) Anemia, unspecified 9 Bialecki Eldad. [address] [place] [address], [id number] , [place]. tel: [phone] Referring Provider: Alysia Miles, [address] [place] [address], [place], [address] . tel:[phone] [facility], [address], [place], [place], [address] , [place] tel: [phone] [facility] No Information 9 Bialecki Eldad. [address] [place] [address], [id number] , [place]. tel: [phone] [facility], [address], [place], [place], [address] , [place] tel: [phone] [facility] No Information 9 Bialecki Eldad. [address] [place] [address], [id number] , [place]. tel: [phone] Referring Provider: Jennifer Holliday, [address] [place] [address] [address], [place], [address] . tel:[phone] [facility], [address], [place], [place], [address] , [place] tel: [phone] [facility] Anemia (chief complaint) Anemia, unspecified 9 Bialecki Eldad. [address] [place] [address], [id number] , [place]. tel: [phone] Referring Provider: Alysia Miles, [address] [place], [address] . tel:[phone] [facility], [address], [place], [place], [address] , [place] tel: [phone] [facility] Anemia, unspecified type 9 Terrence Shennifer. [address] [place] [address], [id number] , [place]. tel: [phone] [facility], [address], [place], [place], [address] , [place] tel: [phone] [facility] 6-8 week follow up (chief complaint) Incontinence of feces, unspecified fecal incontinence type 9 Bialecki Eldad. [address] [place] [address], [id number] , [place]. tel: [phone] Referring Provider: Deysi Proctor, [address] [facility] [address], [place], [address] . tel:[phone] [facility], [address], [place], [place], [address] , [place] tel: [phone] [facility] Incontinence of feces, unspecified fecal incontinence typeGastroesophag eal reflux disease, esophagitis presence not specified 9 Bialecki Eldad. [address] [place] [address], [id number] , [place]. tel: [phone] Referring Provider: Jennifer Holliday, [address] [facility] [address], [place], [address] . tel:[phone] [facility], [address], [place], [place], [address] , [place] tel: [phone] [facility] Incontinence of feces, unspecified fecal incontinence typeAcute conjunctivitis of right eye, unspecified acute conjunctivitis typeHeartburn 9 Ocampo Roberta. [address] [place] [address], [id number] , [place]. tel: [phone] Referring Provider: [address] [facility] [address] [place] [address], [address] . tel:[phone] [facility], [address], [place], [place], [address] , tel: [phone] [facility] Gastroesophageal reflux disease, esophagitis presence not specifiedAnemia, unspecified type 8 Terrence Granados. [address] [place] [address], [id number] , . tel: [phone] Referring Provider: [address] [facility] [address], [place], [address] . tel:[phone] [facility], [address], [place], [place], [address] , tel: [phone] [facility] Anemia, unspecified typeGastroesophag eal reflux disease, esophagitis presence not specifiedAbnormal liver diagnostic imaging Terrence Granados. [address] [place] [address], [id number] , [place]. tel: [phone] Referring Provider: [address] [facility], [place], [address] . tel:[phone] [facility], [address], [place], [place], [address] , tel: [phone] [facility] Diarrhea, unspecified typeIncontinence of feces, unspecified fecal incontinence typePharyngoesoph ageal dysphagia 7 Bialecki Eldad. [address] [place] [address], [id number] , [place]. tel: [phone] Referring Provider: [address] [facility] [address], [place], [address] . tel:[phone] [facility], [address], [place], [place], [address] , tel: [phone] [facility] Anemia, unspecified type 6 Bialecki Eldad. [address] [place] [address], [id number] , [place]. tel: [phone] [facility], [address], [place], [place], [address] , [place] tel: [phone] [facility] Gastroesophageal reflux disease, esophagitis presence not specifiedRegurgit ationDyspnea on effortShortness of breath 6 Karson Hatfield. [address] [place] [address], [address], [place], [place], [address] , [place]. tel: [phone] Referring Provider: Alysia Miles, [address] [facility] [address], [place], [address] . tel:[phone] Family History Family Member Type Diagnosis Age At Onset No Information Payers Payer name Insurance type Covered libertarian ID Authoriza tion(s) No Information Social History [...] to leave house 3 month follow up 3 month follow up (comments) 78 year old female that presents for follow up. Pt is feeling well, and denies any current symptoms. Is not taking daily fiber supplement. Having 3 bowel movements per week that are formed and soft. Decreased amount of times of fecal incontinence. Hx of low iron had iron infusions recent labs were normal. Dr. Valente referred pt to e business project manager, has appt end of March. Denies blood in stool, + dark stools (on oral iron). Anemia Anemia Anemia 6-8 week follow up [...] months Related to Anemia, unspecified Continue with fiber dailyFollow up in the office in 6 months, call sooner for any problems Related to Incontinence of feces, unspecified fecal incontinence type Continue with your c urrent medicationsAvoid greasy and spicy foods Related to Gastroesophageal reflux disease, esophagitis presence not specified Continue with your c urrent medications dailyFollow up in 6 months, call sooner with any questions Related to Gastroesophageal reflux disease, esophagitis presence not specified Start taking a fiber supplement dailyWe will look for physical therapy closer to you Related to Incontinence of feces, unspecified fecal incontinence type Continue with your c urrent medicationsYou can [...] above Related to Regur gitation of food Eat small mealsAvoid laying down for 3 hours after eatingI will review with Dr. Ty, and will contact you with a plan Related to Regurgitation of food Continue with your current medic ations Related to Gastroesophageal reflux disease, esophagitis presence not specified Take fiber supplemen t daily for one week then increase to twice dailyThis will help give your stools more form Related to Incontinence of feces, unspecified fecal incontinence type Agreed on following: Increase Metamucil to twice [...] blood co unts Related to Anemia, unspecified Handout All of you labs have improved [...]
--- OUTSIDE RECORDS SUMMARY | 2025-01-07 13:32 | XMS_ITS | Encounter Summary ---
Author Organization [facility] Address [address] [place] [address] Care Team Providers Care Nursing Faculty Name Role Phone Jennifer Holliday MD Primary Care [facility] Jeramy Lester MD Unavailable Karen Melendez MD Unavailable Alysia Ty MD Unavailable Reymundo Johnston MD Unavailable [phone] Soledad West MD Unavailable ADELAIDE Luciano IV, C Joseph Unavailable Vasile Mcmanus MD Unavailable Kurtis Ochoa MD Unavailable Hermes Hernandez MD Unavailable Juan C Montelongo MD Unavailable Sergey Spence MD Unavailable + Juhi Connolly NP Unavailable Jailyn Sue RN Unavailable Jennifer Holliday MD Primary Care Provid er Reason for Visit * Reason Onset Date Comments Test Results 12/29/2024 Encounter Details Date Type Department Care Team (Late st Contact Info) Description 12/29/2024 Telephone [facility] at [facility] - [address] [place] [address] [address], [place] [address] Jennifer Holliday MD [address] [place] [address] [address] [address] Test Results Social History Tobacco Use Types Packs/Day Years Used Date Smoking Tobacco: Former Cigarettes 1 26.3 0 [birth year]/11/1956 - 08/02/1982 Smokeless Tobacco: Never Alcohol Use Standard Drinks/Week Comments Yes 0 (1 standard drink = 0.6 oz pur e alcohol) occasionally [facility] Utilities Answer Date Recorded In the past 12 months has e Verical, gas, oil, or water company threatened to [...] week 02/25/2024 How often do you attend [facility] services? More than 4 times per year 02/25/2024 Do you belong to any clubs o r organizations such as islam groups, unions, fraternal or athletic groups, or [...] place to sleep or slept in a assisted (including now)? No 12/10/2022 Housing Stability Vital Sign Answer Angel e Recorded In the last 12 months, was t here a time when you were not able to pay the mortgage or rent on time? No 02/25/2024 In the past 12 months, how m any times have you moved where you were living? 0 02/25/2024 At any time in the past 12 m [facility], were you homeless or living in a assisted (including now)? No 02/25/2024 Comments No Sex and Gender Information Value Date Recorded Sex Assigned at Not on file Legal Sex Female 11:24 PM [facility] DIRECT[facility] Gender Identity Female 02/03/2023 6:56 PM CDT Sexual Orientation Not on file documented as of this encounter Miscellaneous Notes * Telephone Encounter - Chema Boswell CMA - 01/01/2025 12:54 PM CDT Noted. * Telephone Encounter - Ashley Qiu - 12/29/2024 3:42 PM CDT Test Result Request Type of test: lab Date of test: 12/28/24 Where was the test performed at?lab Did provider dictate result yet? Yes Where were results relayed from in the chart? Labs Tab Additional Questions/Comments: Patient's called back asking for lab results. Relayed to himthat medication was called in to pharmacy. He said she didn't have a history of stones, but it having pain on right side. Does message need to be routed? Yes-FYI Only * Telephone Encounter - Kely Campos - 12/29/2024 11:38 AM CDT Test Result Request Type of test: Labs Date of test: 12/28/24 Where was the test performed at?[place] [facility] Did provider dictate result yet? No Additional Questions/Comments: patients Robert (on HIPAA dated 05/10/23) is calling for patients lab results from her urine samples. He states she's pretty sick and would like a call back todaywith the results. Does message need to be routed? Yes-Action [...] Care Management On track(2024 3:44 PM CDT) Jailyn Chavira, RN Note: Problem: At Risk for Falls [...] on filedocumented in this encounter Care Teams Nursing Faculty Relationship Specialty Start Date End Date Jennifer Holliday MD [address] [facility] [address] [place], [place] [id number] PCP - General 10/30/16 01/02/25 Jennifer Holliday MD [address] [facility] [address] [place], [place] [id number] PCP - General Internal Medicine 01/03/25 Jeramy Lester MD [address] [facility] [facility] [address] [place] [address] Surgeon Cardiothoracic Surgery 03/16/19 Karen Melendez MD [address] [place] [address] Consulting Physician Rheumatology 05/22/19 01/02/25 Alysia Ty MD [address] [place] [address] Consulting Physician Gastroenterology 05/22/19 01/02/25 Reymundo Johnston MD [address] [place] [address] Referring Physician Gynecology 12/03/20 Soledad West MD [address] [place] [address] Consulting Physician Dermatology 10/29/21 01/02/25 Dusty Luciano IV, AUD [address] [place] [address] Assistant Basketball Coach 10/29/21 Vasile Mcmanus MD [address] [facility] [place] [address] Surgeon Vascular Surgery 10/29/21 Kurtis Ochoa MD [address] [address] Referring Physician Orthopedic Surgery 07/06/22 Hermes Hernandez MD [address] [address] Consulting Physician Neurology 08/06/22 Juan C Montelongo MD [address] [address] Referring Physician Otolaryngology 10/26/23 Sergey Spence MD [address] [place] [address] Referring Physician Gastroenterology 03/09/24 Juhi Connolly NP [address] [place] [address] [address] [place] [address] Neurology 04/10/24 Jailyn Seu, ATIYA [address] [place] [address] [address] [place] [address] Change Advisor 06/16/24 documented as of this encounter
[2025-01-07] MEDS: ACETAMINOPHEN 325 MG TABLET 650 MG PO (13:41)
[2025-01-07] MEDS: SODIUM CHLORIDE 0.9% IV 1,000 ML 125 ML IV CONT (13:42)
[2025-01-07 13:54] LABS: Lactic Acid Reflex 1.4 mmol/L (0.7-2.0)
[2025-01-07 14:04] LABS: INR 1.2; Prothrombin Time 15.1 Seconds (11.1-14.7)
[2025-01-07 14:05] LABS: Partial Thromboplastin Time 39.2 Seconds (22.3-36.8)
[2025-01-07] MEDS: AZITHROMYCIN 500 MG/NS 250 ML 500 MG/250 ML BAG 250 MG IVPB (14:18)
[2025-01-07 14:23] LABS: Influenza A QL RT-PCR Negative (Negative); Influenza B QL RT-PCR Negative (Negative); RSV RNA, RT-PCR Negative (Negative); SARS-CoV-2 RNA PCR Negative (Negative)
--- NOTE | 2025-01-07 15:26 | PM.IMHP ---
H&P: HPI History of Present Illness Date/Time: 01/07/25 15:26 Chief Complaint: shortness of breath, sepsis, pneumonia Narrative: This is an 84 year old female patient who lives at a senior housing establishment with her who is admitted to the hospital with hypoxia and multifocal pneumonia and labs/vitals consistent with sepsis. Patient reports that earlier today she started experiencing difficulty breathing and she came to ER for evaluation. Her sats were below 90 along with fever and tachycardia. Oxygen applied. CXR shows right middle/lower lobe pneumonia. Lactic acid was normal. She was started on Rocephin and azithromycin IV and admitted for further treatment. WBC highly elevated at 21.6 with primarily neutrophils and 8% bandemia noted. Patient started on breathing treatments as well in ER. On exam patient was eating well, denies any current pain. She also denies nausea/vomiting. She reports having fever and chills earlier but feeling better now. States the oxygen is helping her breathing feel easier. Patient states her has COPD and he has had worsening respiratory troubles in the past week. This is her only known ill contact. Review of Systems Review of Systems: All systems reviewed & are unremarkable except as noted in HPI and below PMFSH Past Medical History Medical History Presence of pancreatic duct stent Acquired leg length discrepancy Trochanteric bursitis, left hip Bacteremia Abnormal CT scan, esophagus Dementia Chronic GERD Anemia Encounter for postoperative care Chronic kidney disease Compression fracture of thoracic vertebra Closed intertrochanteric fracture of left hip Hypothyroidism Hyperlipidemia Hypertension Surgical History Surgical History S/P ORIF (open reduction internal fixation) fracture left hip H/O: hysterectomy Hx of cholecystectomy Family History Family History Father Heart disease Mother Heart disease Sibling Heart disease Malignant neoplasm of prostate Social History Social History Social History: She is and has 4 children . 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 She does not use any alcohol marijuana or illicit drug. Her is the durable power small electric engine technician for healthcare. code full code Smoking status: Never smoker Alcohol intake: never Substance use: never Substance use type: does not use Do You Feel Safe in your Home?: Yes Lack of Transportation: No Lack of Food: Never True Current Housing: I Have Housing Concerned About Future Housing: No Difficulty Paying Gas/Electric Bills: No Difficulty Paying for Meds: No Currently Unemployed: No Education: High School Diploma/GED Difficulty w/ Childcare or Family Care: No Living arrangements: with family Gender identity (if verbalized by the patient): Female Spiritual care concerns: No Meds Home Medications and Allergies Home Medications ?Medication ?Instructions ?Recorded ?Confirmed ?Type cyanocobalamin (vitamin B-12) 500 1,000 mcg PO DAILY 05/14/22 01/07/25 History mcg tablet (Vitamin B-12) cyclobenzaprine 10 mg tablet 10 mg PO BID PRN Muscle Spasm 05/14/22 01/07/25 History eszopiclone 3 mg tablet 3 mg PO HS 05/14/22 01/07/25 History ezetimibe 10 mg tablet 10 mg PO DAILY 05/14/22 01/07/25 History folic acid 1 mg tablet 1 mg PO DAILY 05/14/22 01/07/25 History gabapentin 600 mg tablet 600 mg PO TID 05/14/22 01/07/25 History levothyroxine 50 mcg tablet 50 mcg PO DAILY 05/14/22 01/07/25 History pantoprazole 40 mg tablet,delayed 40 mg PO BID 05/14/22 01/07/25 History release dicyclomine 10 mg capsule See Rx Instructions .Route 12/03/22 01/07/25 History .COMPLEX PRN Diarrhea amlodipine 5 mg tablet 5 mg PO DAILY 02/20/24 01/07/25 History atorvastatin 10 mg tablet 10 mg PO DAILY 02/20/24 01/07/25 History duloxetine 60 mg capsule,delayed 60 mg PO DAILY 02/20/24 01/07/25 History release famotidine 20 mg tablet 20 mg PO BID PRN acid reflex 02/20/24 01/07/25 History losartan 50 mg tablet 50 mg PO HS 02/20/24 01/07/25 History multivitamin with minerals-folic 1 tablet PO DAILY 02/20/24 01/07/25 History acid 0.4 mg tablet prednisone 1 mg tablet 3 mg PO DAILY 02/20/24 01/07/25 History carvedilol 3.125 mg tablet (Coreg) 3.125 mg PO Q12HR #60 tabs 02/24/24 01/07/25 Rx memantine 5 mg tablet 5 mg PO BID 11/08/24 01/07/25 History methocarbamol 500 mg tablet 500 mg PO BID PRN muscle spasms 11/08/24 01/07/25 History Allergies Allergy/AdvReac Type Severity Reaction Status Date / Time diphenhydramine (From AdvReac Agitated Verified 01/07/25 16:06 Benadryl) Vital Signs Vital Signs - 24 hr 01/07/25 11:49 01/07/25 12:53 01/07/25 12:53 Temperature 37.9 C H Pulse Rate 119 H 113 H Respiratory Rate 16 19 Blood Pressure 132/83 118/72 Pulse Oximetry 94 84 L 98 Oxygen Delivery Room Air Oxygen Flow Rate 01/07/25 12:55 01/07/25 13:00 01/07/25 13:01 Temperature Pulse Rate 115 H 114 H Respiratory Rate 18 18 Blood Pressure 107/74 Pulse Oximetry 98 96 97 Oxygen Delivery Nasal Cannula Oxygen Flow Rate 3 01/07/25 13:35 01/07/25 14:00 01/07/25 14:15 Temperature Pulse Rate 112 H 106 H 105 H Respiratory Rate 20 16 12 Blood Pressure Pulse Oximetry 96 94 Oxygen Delivery Oxygen Flow Rate 01/07/25 14:36 01/07/25 14:46 01/07/25 15:00 Temperature Pulse Rate 101 H 100 98 Respiratory Rate 18 15 14 Blood Pressure 140/88 Pulse Oximetry 94 93 95 Oxygen Delivery Oxygen Flow Rate Exam Narrative: GENERAL APPEARANCE: WELL-DEVELOPED, WELL-NOURISHED SKIN: NORMAL COLOR HEAD: NORMOCEPHALIC, NONTRAUMATIC EYES: CLEAR CONJUNCTIVA ENT: OROPHARYNX NORMAL, EARS NORMAL, NOSE NORMAL NECK: SUPPLE, NONTENDER CHEST AND RESPIRATORY: AIRWAY PATENT, RHONCHI in RIGHT MIDDLE/LOWER LOBES, NASAL CANNULA IN PLACE HEART: REGULAR RATE/RHYTHM ABDOMEN: SOFT, NONTENDER, NO ORGANOMEGALY, QUIET BOWEL SOUNDS VASCULAR: NORMAL PERIPHERAL PULSES, NORMAL CAPILLARY REFILL. MUSCULOSKELETAL: NORMAL RANGE OF MOTION, NONTENDER BACK NEUROLOGIC: ALERT AND ORIENTED ?3, E LEARNING DEVELOPER IS NORMAL TESTED, NO GROSS MOTOR DEFICIT H&P: Results Labs Labs: Short CBC 01/07/25 Range/Units 12:43 WBC 21.6 H (4.5-10.0) K/mm3 Hgb 13.3 (12.0-15.0) g/dL Hct 42.7 (37.0-47.0) % Plt Count 334 (150-375) k/mm3 BMP 01/07/25 12:43 Sodium 138 Potassium 4.1 Chloride 106 Carbon Dioxide 22 BUN 24 H Creatinine 1.18 H Glucose 97 Calcium 9.6 Liver Function 01/07/25 Range/Units 12:43 Total Bilirubin 0.7 (0.2-1.3) mg/dL AST 34 (14-36) U/L ALT 27 (6-35) U/L Alkaline Phosphatase 100 (38-126) U/L Albumin 3.9 (3.5-5.1) g/dL Urine 01/07/25 Range/Units 12:43 Urine Color Yellow (Yellow) Urine Appearance Clear (Clear) Urine pH 6.0 (5.0-9.0) Ur Specific [place] 1.015 (1.001-1.035) Urine Protein Negative (Negative) mg/dL Urine Glucose (UA) Negative (Negative) mg/dL Pulse Oximetry SpO2 results: 94% on 2 LPM NC Attestation: I personally reviewed and interpreted this pulse oximetry as follows: Interpretation: Patient continues to require supplemental oxygenation ECG Attestation: I personally reviewed and interpreted this ECG as follows: ECG completion date: 01/07/25 ECG completion time: 12:35 Prior ECG tracings: available for review Interpretation: Sinus tachycardia rate of 115 DE interval 164 QRS duration 90 QTC 446 QRS axis -19? no STEMI. Imaging Chest x-ray: Radiologist's impression: Portable chest x-ray Comparison: 09/16/2024 Clinical History: Hypoxia Findings: There is extensive hazy airspace disease in the right midlung and lower lung tolbert. Left lung clear. Cardiomediastinal silhouette is stable. Bones and soft tissues are unremarkable. Impression: Probable multilobar right lung pneumonia. Asymmetric pulmonary edema less likely. Reviewed, dictated and finalized at [facility]. Assessment and Plan Assessment and plan (1) Sepsis: Qualifiers: Sepsis acute organ dysfunction status: without acute organ dysfunction Sepsis type: sepsis due to unspecified organism Qualified Code(s): A41.9 - Sepsis, unspecified organism Code(s): A41.9 - Sepsis, unspecified organism Status: Acute Assessment and Plan: -Fever with tachycardia, significantly elevated WBC with bandemia and mild AUTUMN -Source of infection right middle/lower lobe pneumonia -IV antibiotics given in ER and continued on admission, Rocephin/azithromycin -Urine does not appear infected (2) Acute hypoxic respiratory failure: Code(s): J96.01 - Acute respiratory failure with hypoxia Status: Acute Assessment and Plan: -Oxygen below 90% in ER, improved with nasal cannula use -Patient does not usually wear oxygen - has COPD and has been sick recently with increased respiratory symptoms -Covid/Flu/RSV negative here today (3) Multifocal pneumonia: Code(s): J18.9 - Pneumonia, unspecified organism Status: Acute Assessment and Plan: -See above (4) Bandemia: Code(s): D72.825 - Bandemia Status: Acute Assessment and Plan: -See above (5) Chronic kidney disease: Qualifiers: Chronic kidney disease stage: stage 3 (moderate) Chronic kidney disease stage 3 subtype: stage 3a (GFR 45-59) Qualified Code(s): N18.31 - Chronic kidney disease, stage 3a Code(s): N18.9 - Chronic kidney disease, unspecified Status: Chronic Assessment and Plan: -AUTUMN on CKD noted with worsening of eGFR to 44 on admit, baseline appears to be 51 to >60 -IV fluids given in ER and continued at a rate overnight -Repeat labs in AM ordered -Avoid nephrotoxins when possible (6) Hyperlipidemia: Qualifiers: Hyperlipidemia type: mixed hyperlipidemia Qualified Code(s): E78.2 - Mixed hyperlipidemia Code(s): E78.5 - Hyperlipidemia, unspecified Status: Chronic Assessment and Plan: -Continue home medication (7) Hypertension: Qualifiers: Hypertension type: primary hypertension Qualified Code(s): I10 - Essential (primary) hypertension Code(s): I10 - Essential (primary) hypertension Status: Chronic Assessment and Plan: -Blood pressure reviewed and found to be on the low side -Coreg continued while amlodipine and losartan on hold right now -Resume BP meds if readings become hypertensive again (8) Hypothyroidism: Qualifiers: Hypothyroidism type: acquired Qualified Code(s): E03.9 - Hypothyroidism, unspecified Code(s): E03.9 - Hypothyroidism, unspecified Status: Chronic Assessment and Plan: -Continue home medications (9) Chronic GERD: Code(s): K21.9 - Gastro-esophageal reflux disease without esophagitis Status: Chronic Assessment and Plan: -Continue home medications Quality VTE Prophylaxis VTE prophylaxis: pharmacologic ordered (Lovenox) Hospitalist [facility] Advance Care Plan I have confirmed that the patient's Advanced Care Plan is present, code status is documented, or surrogate decision maker is listed in patient medical record.: Yes Medication Reconciliation I have utilized all available resources to obtain, update and review the patients current medications (includes all prescriptions, OTC, herbals, cannabis, and nutritional supplements).: Yes
[2025-01-07 15:54] LABS: Procalcitonin 8.6 ng/mL
[2025-01-07] MEDS: ALBUTEROL SULFATE NEB 2.5 MG/3 ML INH INHALATION (20:14)
[2025-01-07] MEDS: PANTOPRAZOLE 40 MG TABLET PO (21:16)
[2025-01-07] MEDS: carvediloL 3.125 MG TABLET PO (21:16)
[2025-01-07] MEDS: MEMANTINE 5 MG TABLET PO (21:16)
[2025-01-07] MEDS: SODIUM CHLORIDE 0.9% IV 1,000 ML 50 ML IV CONT (21:18)
[2025-01-08] VITALS (14 sets, daily range): BP systolic 120–151; BP diastolic 52–78; PULSE 78–88; RESP 16–20; TEMP 36.2–36.8; O2SAT 94–98
[2025-01-08] MEDS: ALBUTEROL SULFATE NEB 2.5 MG/3 ML INH INHALATION ×4 (02:10→21:55)
[2025-01-08 04:58] LABS: Basophils Absolute Auto 0.1 K/mm3 (0.0-0.1); Basophils Percent Auto 0.4 % (0.2-1.2); Eosinophils Absolute Auto 0.4 K/mm3 (0-0.3); Hematocrit 32.5 % (37.0-47.0); Immature Granulocyte Absolute 0.17 K/mm3 (0.00-0.031); Immature Granulocyte Percent A 0.8 % (0-0.5); Lymphocytes Absolute Auto 1.87 K/mm3 (0.9-3.2); Lymphocytes Percent Auto 8.7 % (18.3-44.2); Mean Corpuscular HGB Conc 30.8 g/dl (32-36); Mean Corpuscular Hemoglobin 29.9 pg (26-34); Mean Platelet Volume 9.8 fl (7.4-10.4); Monocytes Absolute Auto 1.1 K/mm3 (0.1-0.6); Monocytes Percent Auto 5.2 % (2.6-8.5); Neutrophils Absolute Auto 17.8 K/mm3 (1.3-6.7); Neutrophils Percent Auto 82.9 % (45.5-73.1); Platelet Count Result 260 k/mm3 (150-375); Red Blood Count 3.35 M/mm3 (4.2-5.4); Red Cell Distribution Width 14.4 % (11.5-14.5); White Blood Count 21.5 K/mm3 (4.5-10.0)
[2025-01-08 05:36] LABS: Alanine Aminotransferase 23 U/L (6-35); Albumin Level 3.1 g/dL (3.5-5.1); Alkaline Phosphatase 78 U/L (38-126); Anion Gap 6 mmol/L (4-12); Aspartate Amino Transferase 32 U/L (14-36); Bilirubin,Total 0.4 mg/dL (0.2-1.3); Blood Urea Nitrogen 25 mg/dL (7-17); Calcium 8.7 mg/dL (8.4-10.2); Carbon Dioxide 25 mmol/L (22-30); Chloride 107 mmol/L (98-107); Estimated CRCL calculation 26 ml/min; Estimated Glomerular Filt Rate 37; Glucose 93 mg/dL (65-110); Magnesium 2.1 mg/dL (1.6-2.3); Potassium 4.1 mmol/L (3.4-5.0); Sodium 138 mmol/L (137-145); Total Protein 5.9 g/dL (6.3-8.2)
[2025-01-08] MEDS: LEVOTHYROXINE SODIUM 50 MCG TABLET PO (05:37)
[2025-01-08 06:26] LABS: Procalcitonin 17.8 ng/mL
--- NOTE | 2025-01-08 08:30 | P.PNIM_ITS ---
Progress Note: A&P Assessment and Plan (1) Sepsis: Qualifiers: Sepsis acute organ dysfunction status: without acute organ dysfunction Sepsis type: sepsis due to unspecified organism Qualified Code(s): A41.9 - S epsis, unspecified organism Code(s): A41.9 - Sepsis, unspecified organism Status: Acute Assessment and Plan: -Fever with tachycardia, significantly elevated WBC with bandemia and mild AUTUMN -Source of infection right middle/lower lobe pneumonia -IV antibiotics given in ER and continued on admission, Rocephin/azithromycin -Urine negative (2) Acute hypoxic respiratory failure: Code(s): J96.01 - Acute respiratory failure with hypoxia Status: Acute Assessment and Plan: -Oxygen below 90% in ER, improved with nasal cannula use -Patient does not usually wear oxygen - has COPD and has been sick recently with increased respiratory symptoms -Covid/Flu/RSV negative here today - wean off oxygen if able (3) Multifocal pneumonia: Code(s): J18.9 - Pneumonia, unspecified organism Status: Acute Assessment and Plan: -See above (4) Bandemia: Code(s): D72.825 - Bandemia Status: Acute Assessment and Plan: -See above (5) Chronic kidney disease: Qualifiers: Chronic kidney disease stage: stage 3 (moderate) Chronic kidney disease stage 3 subtype: stage 3a (GFR 45-59) Qualified Code(s): N18.31 - Chronic kidney disease, stage 3a Code(s): N18.9 - Chronic kidney disease, unspecified Status: Chronic Assessment and Plan: -AUTUMN on CKD noted with worsening of eGFR to 44 on admit, baseline appears to be 51 to >60 -IV fluids given in ER and continued at a rate overnight -Repeat labs in AM ordered -Avoid nephrotoxins when possible (6) Hyperlipidemia: Qualifiers: Hyperlipidemia type: mixed hyperlipidemia Qualified Code(s): E78.2 - Mixed hyperlipidemia Code(s): E78.5 - Hyperlipidemia, unspecified Status: Chronic Assessment and Plan: -Continue home medication (7) Hypertension: Qualifiers: Hypertension type: primary hypertension Qualified Code(s): I10 - Essential (primary) hypertension Code(s): I10 - Essential (primary) hypertension Status: Chronic Assessment and Plan: -Blood pressure reviewed and found to be on the low side -Coreg continued while amlodipine and losartan on hold right now -Resume BP meds if readings become hypertensive again (8) Hypothyroidism: Qualifiers: Hypothyroidism type: acquired Qualified Code(s): E03.9 - Hypothyroidism, unspecified Code(s): E03.9 - Hypothyroidism, unspecified Status: Chronic Assessment and Plan: -Continue home medications (9) Chronic GERD: Code(s): K21.9 - Gastro-esophageal reflux disease without esophagitis Status: Chronic Assessment and Plan: -Continue home medications Time Spent With Patient Time with patient: 25 - 35 minutes Subjective Date/time seen: 01/08/25 08:31 Interval history: 84 year old female patient who lives at a senior housing establishment with her who is admitted to the hospital with hypoxia and multifocal pneumonia and labs/vitals consistent with sepsis. Pt s oxygen level was below 90%, fever and tachycardia. she was started on oxygen. CXR shows right middle/lower lobe pneumonia. Lactic acid WNL. She was started on Rocephin and azithromycin IV and admitted for further treatment. WBC highly elevated at 21.6 with primarily neutrophils and 8% bandemia noted. Patient started on breathing treatments. Pt is seen and examined. She is up in the chair, still on oxygen, reports no sob, no chest pain. Denies cough. Review of Systems Review of Systems: All systems reviewed & are unremarkable except as noted in HPI and below Exam Narrative: GENERAL APPEARANCE: WELL-DEVELOPED, WELL-NOURISHED SKIN: NORMAL COLOR HEAD: NORMOCEPHALIC, NONTRAUMATIC ENT: OROPHARYNX NORMAL, EARS NORMAL, NOSE NORMAL NECK: SUPPLE, NONTENDER CHEST AND RESPIRATORY: AIRWAY PATENT, coarse to truman lower lobes, NASAL CANNULA IN PLACE HEART: REGULAR RATE/RHYTHM ABDOMEN: SOFT, NONTENDER, NO ORGANOMEGALY, QUIET BOWEL SOUNDS VASCULAR: NORMAL PERIPHERAL PULSES, NORMAL CAPILLARY REFILL. MUSCULOSKELETAL: NORMAL RANGE OF MOTION, NONTENDER BACK NEUROLOGIC: ALERT AND ORIENTED ?3, SEMI DRIVER IS NORMAL TESTED, NO GROSS MOTOR DEFICIT Const: General: comfortable Objective Data Vital Signs Vital Signs: Vital Signs - 24 hr 01/07/25 11:49 01/07/25 12:53 01/07/25 12:53 Temperature 100.2 F H Pulse Rate 119 H 113 H Respiratory Rate 16 19 Blood Pressure 132/83 118/72 Pulse Oximetry 94 84 L 98 Oxygen Delivery Room Air Oxygen Flow Rate 01/07/25 12:55 01/07/25 13:00 01/07/25 13:01 Temperature Pulse Rate 115 H 114 H Respiratory Rate 18 18 Blood Pressure 107/74 Pulse Oximetry 98 96 97 Oxygen Delivery Nasal Cannula Oxygen Flow Rate 3 01/07/25 13:35 01/07/25 14:00 01/07/25 14:15 Temperature Pulse Rate 112 H 106 H 105 H Respiratory Rate 20 16 12 Blood Pressure Pulse Oximetry 96 94 Oxygen Delivery Oxygen Flow Rate 01/07/25 14:36 01/07/25 14:46 01/07/25 15:00 Temperature Pulse Rate 101 H 100 98 Respiratory Rate 18 15 14 Blood Pressure 140/88 Pulse Oximetry 94 93 95 Oxygen Delivery Oxygen Flow Rate 01/07/25 15:55 01/07/25 16:31 01/07/25 19:58 Temperature 97.9 F 97.6 F Pulse Rate 91 87 Respiratory Rate 15 20 Blood Pressure 105/55 L 107/58 L Pulse Oximetry 95 95 96 Oxygen Delivery Nasal Cannula Oxygen Flow Rate 2 01/07/25 20:14 01/07/25 20:25 01/07/25 20:28 Temperature Pulse Rate 89 89 89 Respiratory Rate 16 16 14 Blood Pressure Pulse Oximetry 94 Oxygen Delivery Nasal Cannula Oxygen Flow Rate 2 01/07/25 21:10 01/07/25 21:16 01/08/25 05:28 Temperature 97.1 F L Pulse Rate 89 78 Respiratory Rate 20 Blood Pressure 120/52 L Pulse Oximetry 94 94 Oxygen Delivery Nasal Cannula Oxygen Flow Rate 2 01/08/25 07:47 01/08/25 07:47 01/08/25 08:07 Temperature Pulse Rate 83 81 Respiratory Rate 18 20 Blood Pressure Pulse Oximetry 95 Oxygen Delivery Nasal Cannula Oxygen Flow Rate 2 Intake/Output Intake/Output: Intake & Output 01/05/25 01/06/25 01/07/25 01/08/25 23:59 23:59 23:59 23:59 Intake Total 540 200 Output Total 0 Balance 540 200 Meds/Results Medications: Active Medications Generic Name Dose Route Start Last Admin Trade Name Freq PRN Reason Stop Dose Admin Acetaminophen 650 mg 01/07/25 14:14 Acetaminophen 325 Mg Tablet PO Q4H PRN Mild Pain (1-3) or Fever Albuterol 2.5 mg 01/07/25 20:00 01/08/25 07:45 Albuterol Sulfate Neb 2.5 Mg/3 Ml Inh INHALATION 2.5 mg Q6HRT CASANDRA Administration Amlodipine Besylate 5 mg 01/08/25 09:00 Amlodipine Besylate 5 Mg Tablet PO DAILY CASANDRA Atorvastatin Calcium 10 mg 01/08/25 09:00 Atorvastatin 10 Mg Tablet PO DAILY CASANDRA Carvedilol 3.125 mg 01/07/25 21:00 01/07/25 21:16 Carvedilol 3.125 Mg Tablet PO 3.125 mg Q12HR CASANDRA Administration Cyanocobalamin 1,000 mcg 01/08/25 09:00 Cyanocobalamin 1,000 Mcg Tablet PO DAILY CASANDRA Duloxetine HCl 60 mg 01/08/25 09:00 Duloxetine Hcl 60 Mg Capsule.Dr PO DAILY CASANDRA Ezetimibe 10 mg 01/08/25 09:00 Ezetimibe 10 Mg Tablet PO DAILY [facility] Enoxaparin Sodium 30 mg 01/08/25 09:00 Enoxaparin 30 Mg/0.3 Ml Syringe SUB-Q DAILY CASANDRA Famotidine 20 mg 01/07/25 19:29 Famotidine 20 Mg Tablet PO BID PRN acid reflex Folic Acid 1 mg 01/08/25 09:00 Folic Acid 1 Mg Tablet PO DAILY CASANDRA Gabapentin 600 mg 01/08/25 09:00 Gabapentin 300 Mg Capsule PO TID CASANDRA Ceftriaxone Sodium 1 gm in 50 mls @ 100 mls/hr 01/07/25 13:35 01/07/25 14:18 Rocephin 1 Gm/Ns 50 Ml IVPB Infused QAM CASANDRA Infusion Azithromycin 500 mg in 250 mls @ 250 mls/hr 01/07/25 13:35 01/07/25 15:26 Zithromax IVPB Infused QAM CASANDRA Infusion Sodium Chloride 1,000 mls @ 50 mls/hr 01/07/25 21:00 01/07/25 21:18 Normal Saline Iv IV CONT 50 mls/hr .Q20H CASANDRA Administration Levothyroxine Sodium 50 mcg 01/08/25 06:30 01/08/25 05:37 Levothyroxine Sodium 50 Mcg Tablet PO 50 mcg DAILY@0630 CASANDRA Administration Losartan Potassium 50 mg 01/07/25 21:00 Losartan Potassium 50 Mg Tablet PO HS CASANDRA Memantine 5 mg 01/07/25 21:00 01/07/25 21:16 Memantine 5 Mg Tablet PO 5 mg Q12HR CASANDRA Administration Methocarbamol 500 mg 01/07/25 19:29 Methocarbamol 500 Mg Tablet PO BID PRN muscle spasms Miscellaneous Information 1 each 01/07/25 00:01 Please Send Eszopiclone To Pharmacy For Verification If Recieved XX 02/06/25 00:00 CLARIFY CASANDRA Multivitamins/Calcium 1 tablet 01/08/25 09:00 Therapeutic Multivitamins/Minerals Tab (*Bkc) PO DAILY [facility] Non-Formulary Medication 3 mg 01/07/25 21:00 Eszopiclone PO 02/06/25 20:59 HS CASANDRA Pantoprazole Sodium 40 mg 01/07/25 21:00 01/07/25 21:16 Pantoprazole 40 Mg Tablet PO 40 mg Q12HR CASANDRA Administration Prednisone 3 mg 01/08/25 09:00 Prednisone 1 Mg Tablet PO DAILY [facility] Radiology Results: ITS Impressions Chest X-Ray 01/07/25 13:18 Impression: Probable multilobar right lung pneumonia. Asymmetric pulmonary edema less likely. Labs Labs: Laboratory Results - last 24 hr 01/07/25 01/07/25 01/07/25 12:42 12:43 13:37 WBC 21.6 H RBC 4.55 Hgb 13.3 Hct 42.7 MCV 93.8 MCH 29.2 MCHC 31.1 L RDW 14.2 Plt Count 334 MPV 9.8 Immature Gran % (Auto) Not Reportable Neut % (Auto) Not Reportable Lymph % (Auto) Not Reportable [place] % (Auto) Not Reportable Eos % (Auto) Not Reportable Baso % (Auto) Not Reportable Lymph # (Auto) Not Reportable [place] # (Auto) Not Reportable Eos # (Auto) Not Reportable Baso # (Auto) Not Reportable Abs Immat Gran (auto) Not Reportable Absolute Neuts (auto) Not Reportable Absolute Nucleated RBC Not Reportable Total Counted 100 Neutrophils % (Manual) 87 H Band Neutrophils % 8 H Lymphocytes % (Manual) 2 L Monocytes % (Manual) 3 Nucleated RBC % Not Reportable Abs Neuts (Manual) 20.52 H Abs Lymphs (Manual) 0.43 L Abs Monocytes (Manual) 0.64 Platelet Estimate Adequate Schistocytes None seen PT 14.6 INR 1.1 APTT 23.3 Sodium 138 Potassium 4.1 Chloride 106 Carbon Dioxide 22 Anion Gap 10 BUN 24 H Creatinine 1.18 H Estim Creat Clear Calc 30 Estimated GFR 44 L Glucose 97 Lactic Acid 1.4 Calcium 9.6 Magnesium Total Bilirubin 0.7 AST 34 ALT 27 Alkaline Phosphatase 100 C-Reactive Protein 2.0 H Total Protein 7.2 Albumin 3.9 Procalcitonin 8.6 Urine Color Yellow Urine Appearance Clear Urine pH 6.0 Ur Specific [place] 1.015 Urine Protein Negative Urine Glucose (UA) Negative Urine Ketones Negative Ur Blood (Man) Negative Urine Nitrate Negative Urine Bilirubin Negative Urine Urobilinogen 1.0 Leukocyte Esterase Rfl Negative Influenza A (RT-PCR) Negative Influenza B (RT-PCR) Negative RSV (RT-PCR) Negative SARS-CoV-2 RNA (RT-PCR) Negative 01/07/25 01/08/25 13:49 04:46 WBC 21.5 H RBC 3.35 L Hgb 10.0 L D Hct 32.5 L MCV 97.0 MCH 29.9 MCHC 30.8 L RDW 14.4 Plt Count 260 MPV 9.8 Immature Gran % (Auto) 0.8 H Neut % (Auto) 82.9 H Lymph % (Auto) 8.7 L [place] % (Auto) 5.2 Eos % (Auto) 2.0 Baso % (Auto) 0.4 Lymph # (Auto) 1.87 [place] # (Auto) 1.1 H Eos # (Auto) 0.4 H Baso # (Auto) 0.1 Abs Immat Gran (auto) 0.17 H Absolute Neuts (auto) 17.8 H Absolute Nucleated RBC 0.000 Total Counted Neutrophils % (Manual) Band Neutrophils % Lymphocytes % (Manual) Monocytes % (Manual) Nucleated RBC % 0.0 Abs Neuts (Manual) Abs Lymphs (Manual) Abs Monocytes (Manual) Platelet Estimate Schistocytes PT 15.1 H INR 1.2 APTT 39.2 H Sodium 138 Potassium 4.1 Chloride 107 Carbon Dioxide 25 Anion Gap 6 BUN 25 H Creatinine 1.37 H Estim Creat Clear Calc 26 Estimated GFR 37 L Glucose 93 Lactic Acid Calcium 8.7 Magnesium 2.1 Total Bilirubin 0.4 AST 32 ALT 23 Alkaline Phosphatase 78 C-Reactive Protein Total Protein 5.9 L Albumin 3.1 L Procalcitonin 17.8 Urine Color Urine Appearance Urine pH Ur Specific [place] Urine Protein Urine Glucose (UA) Urine Ketones Ur Blood (Man) Urine Nitrate Urine Bilirubin Urine Urobilinogen Leukocyte Esterase Rfl Influenza A (RT-PCR) Influenza B (RT-PCR) RSV (RT-PCR) SARS-CoV-2 RNA (RT-PCR) Quality VTE Prophylaxis VTE prophylaxis: pharmacologic ordered (Lovenox)
[2025-01-08] MEDS: CYANOCOBALAMIN 1,000 MCG TABLET 1000 MCG PO (08:33)
[2025-01-08] MEDS: DULoxetine HCL 60 MG CAPSULE.DR PO (08:33)
[2025-01-08] MEDS: THERAPEUTIC MULTIVITAMINS/MINERALS TAB (*BKC) 1 TABLET PO (08:33)
[2025-01-08] MEDS: FOLIC ACID 1 MG TABLET PO (08:33)
[2025-01-08] MEDS: GABAPENTIN 300 MG CAPSULE 600 MG PO ×3 (08:33→18:15)
[2025-01-08] MEDS: carvediloL 3.125 MG TABLET PO ×2 (08:33→20:26)
[2025-01-08] MEDS: MEMANTINE 5 MG TABLET PO ×2 (08:33→20:26)
[2025-01-08] MEDS: ATORVASTATIN 10 MG TABLET PO (08:33)
[2025-01-08] MEDS: PANTOPRAZOLE 40 MG TABLET PO ×2 (08:33→20:26)
[2025-01-08] MEDS: EZETIMIBE 10 MG TABLET PO (08:33)
[2025-01-08] MEDS: AZITHROMYCIN 500 MG/NS 250 ML 500 MG/250 ML BAG 250 MG IVPB (08:34)
[2025-01-08] MEDS: predniSONE 1 MG TABLET 3 MG PO (08:58)
[2025-01-08] MEDS: ENOXAPARIN 30 MG/0.3 ML SYRINGE SUB-Q (08:58)
[2025-01-09] VITALS (9 sets, daily range): BP systolic 137–160; BP diastolic 77–95; PULSE 73–89; RESP 14–18; TEMP 36.3–36.8; O2SAT 95–97
[2025-01-09] MEDS: ALBUTEROL SULFATE NEB 2.5 MG/3 ML INH INHALATION ×3 (02:51→20:53)
--- NOTE | 2025-01-09 02:52 | PCRCNOTE ---
Pt request tx be skipped if sleeping. She would call if tx was needed.
[2025-01-09] MEDS: LEVOTHYROXINE SODIUM 50 MCG TABLET PO (05:19)
[2025-01-09 05:24] LABS: Basophils Percent Auto 0.3 % (0.2-1.2); Eosinophils Absolute Auto 0.5 K/mm3 (0-0.3); Eosinophils Percent Auto 3.6 % (0-4.4); Hematocrit 31.5 % (37.0-47.0); Hemoglobin 9.8 g/dL (12.0-15.0); Immature Granulocyte Absolute 0.08 K/mm3 (0.00-0.031); Immature Granulocyte Percent A 0.6 % (0-0.5); Lymphocytes Absolute Auto 1.67 K/mm3 (0.9-3.2); Lymphocytes Percent Auto 13.4 % (18.3-44.2); Mean Corpuscular HGB Conc 31.1 g/dl (32-36); Mean Corpuscular Volume 96.3 fl (80-100); Mean Platelet Volume 10.3 fl (7.4-10.4); Monocytes Absolute Auto 0.6 K/mm3 (0.1-0.6); Monocytes Percent Auto 4.8 % (2.6-8.5); Neutrophils Absolute Auto 9.6 K/mm3 (1.3-6.7); Neutrophils Percent Auto 77.3 % (45.5-73.1); Platelet Count Result 267 k/mm3 (150-375); Red Blood Count 3.27 M/mm3 (4.2-5.4); Red Cell Distribution Width 14.4 % (11.5-14.5); White Blood Count 12.5 K/mm3 (4.5-10.0)
[2025-01-09 05:39] LABS: Alanine Aminotransferase 20 U/L (6-35); Albumin Level 3.1 g/dL (3.5-5.1); Alkaline Phosphatase 76 U/L (38-126); Anion Gap 6 mmol/L (4-12); Aspartate Amino Transferase 24 U/L (14-36); Bilirubin,Total 0.4 mg/dL (0.2-1.3); Blood Urea Nitrogen 14 mg/dL (7-17); Calcium 8.9 mg/dL (8.4-10.2); Carbon Dioxide 24 mmol/L (22-30); Chloride 110 mmol/L (98-107); Estimated CRCL calculation 44 ml/min; Estimated Glomerular Filt Rate > 60; Glucose 79 mg/dL (65-110); Magnesium 1.8 mg/dL (1.6-2.3); Potassium 3.9 mmol/L (3.4-5.0); Sodium 140 mmol/L (137-145); Total Protein 5.9 g/dL (6.3-8.2)
[2025-01-09 05:53] LABS: Procalcitonin 9.9 ng/mL
[2025-01-09] MEDS: carvediloL 3.125 MG TABLET PO ×2 (08:24→20:53)
[2025-01-09] MEDS: FOLIC ACID 1 MG TABLET PO (08:24)
[2025-01-09] MEDS: CYANOCOBALAMIN 1,000 MCG TABLET 1000 MCG PO (08:24)
[2025-01-09] MEDS: GABAPENTIN 300 MG CAPSULE 600 MG PO ×3 (08:24→17:26)
[2025-01-09] MEDS: DULoxetine HCL 60 MG CAPSULE.DR PO (08:24)
[2025-01-09] MEDS: ENOXAPARIN 30 MG/0.3 ML SYRINGE SUB-Q (08:25)
[2025-01-09] MEDS: THERAPEUTIC MULTIVITAMINS/MINERALS TAB (*BKC) 1 TABLET PO (08:25)
[2025-01-09] MEDS: PANTOPRAZOLE 40 MG TABLET PO ×2 (08:25→20:54)
[2025-01-09] MEDS: MEMANTINE 5 MG TABLET PO ×2 (08:25→20:54)
[2025-01-09] MEDS: ATORVASTATIN 10 MG TABLET PO (08:25)
[2025-01-09] MEDS: predniSONE 1 MG TABLET 3 MG PO (08:25)
[2025-01-09] MEDS: EZETIMIBE 10 MG TABLET PO (08:25)
[2025-01-09] MEDS: AZITHROMYCIN 500 MG/NS 250 ML 500 MG/250 ML BAG 100 MG IVPB (09:34)
--- NOTE | 2025-01-09 13:15 | PM.IMPN ---
Progress Note: A&P Assessment and Plan (1) Sepsis: Qualifiers: Sepsis acute organ dysfunction status: without acute organ dysfunction Sepsis type: sepsis due to unspecified organism Qualified Code(s): A41.9 - Sepsis, unspecified organism Code(s): A41.9 - Sepsis, unspecified organism Status: Acute Assessment and Plan: -Fever with tachycardia, significantly elevated WBC with bandemia and mild AUTUMN -Source of infection right middle/lower lobe pneumonia -IV antibiotics given in ER and continued on admission, Rocephin/azithromycin -Urine negative wbc imporved no fever will downgrade to PO antibiotics in anticipation of discharge most likely tomorrow if stable overnight (2) Acute hypoxic respiratory failure: Code(s): J96.01 - Acute respiratory failure with hypoxia Status: Acute Assessment and Plan: -Oxygen below 90% in ER, improved with nasal cannula use -Patient does not usually wear oxygen - has COPD and has been sick recently with increased respiratory symptoms -Covid/Flu/RSV negative here today - wean off oxygen if able (3) Multifocal pneumonia: Code(s): J18.9 - Pneumonia, unspecified organism Status: Acute Assessment and Plan: -See above (4) Bandemia: Code(s): D72.825 - Bandemia Status: Acute Assessment and Plan: -See above (5) Chronic kidney disease: Qualifiers: Chronic kidney disease stage: stage 3 (moderate) Chronic kidney disease stage 3 subtype: stage 3a (GFR 45-59) Qualified Code(s): N18.31 - Chronic kidney disease, stage 3a Code(s): N18.9 - Chronic kidney disease, unspecified Status: Chronic Assessment and Plan: -AUTUMN on CKD noted with worsening of eGFR to 44 on admit, baseline appears to be 51 to >60 -IV fluids given in ER and continued at a rate overnight -Repeat labs in AM ordered -Avoid nephrotoxins when possible (6) Hyperlipidemia: Qualifiers: Hyperlipidemia type: mixed hyperlipidemia Qualified Code(s): E78.2 - Mixed hyperlipidemia Code(s): E78.5 - Hyperlipidemia, unspecified Status: Chronic Assessment and Plan: -Continue home medication (7) Hypertension: Qualifiers: Hypertension type: primary hypertension Qualified Code(s): I10 - Essential (primary) hypertension Code(s): I10 - Essential (primary) hypertension Status: Chronic Assessment and Plan: -Blood pressure reviewed and found to be on the low side -Coreg continued while amlodipine and losartan on hold right now -Resume BP meds if readings become hypertensive again (8) Hypothyroidism: Qualifiers: Hypothyroidism type: acquired Qualified Code(s): E03.9 - Hypothyroidism, unspecified Code(s): E03.9 - Hypothyroidism, unspecified Status: Chronic Assessment and Plan: -Continue home medications (9) Chronic GERD: Code(s): K21.9 - Gastro-esophageal reflux disease without esophagitis Status: Chronic Assessment and Plan: -Continue home medications Time Spent With Patient Time with patient: 25 - 35 minutes Subjective Date/time seen: 01/09/25 13:15 Interval history: 84 year old female patient who lives at a senior housing establishment with her who is admitted to the hospital with hypoxia and multifocal pneumonia and labs/vitals consistent with sepsis. Pt s oxygen level was below 90%, fever and tachycardia. she was started on oxygen. CXR shows right middle/lower lobe pneumonia. Lactic acid WNL. She was started on Rocephin and azithromycin IV and admitted for further treatment. WBC highly elevated at 21.6 with primarily neutrophils and 8% bandemia noted. Patient started on breathing treatments. 6/10- off oxygen since last night- feeling a bit better but still get sob with any exertion. Review of Systems Review of Systems: All systems reviewed & are unremarkable except as noted in HPI and below Exam Narrative: GENERAL APPEARANCE: WELL-DEVELOPED, WELL-NOURISHED SKIN: NORMAL COLOR HEAD: NORMOCEPHALIC, NONTRAUMATIC ENT: OROPHARYNX NORMAL, EARS NORMAL, NOSE NORMAL NECK: SUPPLE, NONTENDER CHEST AND RESPIRATORY: AIRWAY PATENT, coarse to truman lower lobes, NASAL CANNULA IN PLACE HEART: REGULAR RATE/RHYTHM ABDOMEN: SOFT, NONTENDER, NO ORGANOMEGALY, QUIET BOWEL SOUNDS VASCULAR: NORMAL PERIPHERAL PULSES, NORMAL CAPILLARY REFILL. MUSCULOSKELETAL: NORMAL RANGE OF MOTION, NONTENDER BACK NEUROLOGIC: ALERT AND ORIENTED ?3, FORKLIFT PICKER IS NORMAL TESTED, NO GROSS MOTOR DEFICIT Const: General: comfortable Objective Data Vital Signs Vital Signs: Vital Signs - 24 hr 01/08/25 13:43 01/08/25 13:52 01/08/25 13:53 Temperature Pulse Rate 84 88 Respiratory Rate 18 18 Blood Pressure Pulse Oximetry Oxygen Delivery Nasal Cannula Oxygen Flow Rate 2 01/08/25 13:58 01/08/25 18:44 01/08/25 20:00 Temperature 98.3 F Pulse Rate 83 Respiratory Rate 16 Blood Pressure 151/78 H Pulse Oximetry 97 98 98 Oxygen Delivery Room Air Room Air Oxygen Flow Rate 01/08/25 20:37 01/08/25 21:55 01/08/25 22:00 Temperature 97.9 F Pulse Rate 86 79 Respiratory Rate 16 18 Blood Pressure 151/78 H Pulse Oximetry 96 98 Oxygen Delivery Nasal Cannula Oxygen Flow Rate 2 01/08/25 22:06 01/09/25 06:00 01/09/25 08:24 Temperature 98.0 F Pulse Rate 79 86 86 Respiratory Rate 18 16 Blood Pressure 155/95 H Pulse Oximetry 95 Oxygen Delivery Oxygen Flow Rate 01/09/25 08:25 01/09/25 09:23 Temperature Pulse Rate Respiratory Rate Blood Pressure Pulse Oximetry Oxygen Delivery Room Air Room Air Oxygen Flow Rate Intake/Output Intake/Output: Intake & Output 01/06/25 01/07/25 01/08/25 01/09/25 23:59 23:59 23:59 23:59 Intake Total 540 2588 826 Output Total 0 2375 1000 Balance 540 213 -174 Meds/Results Medications: Active Medications Generic Name Dose Route Start Last Admin Trade Name Freq PRN Reason Stop Dose Admin Acetaminophen 650 mg 01/07/25 14:14 Acetaminophen 325 Mg Tablet PO Q4H PRN Mild Pain (1-3) or Fever Albuterol 2.5 mg 01/07/25 20:00 01/09/25 08:39 Albuterol Sulfate Neb 2.5 Mg/3 Ml Inh INHALATION Not Given Q6HRT [facility] Amlodipine Besylate 5 mg 01/08/25 09:00 Amlodipine Besylate 5 Mg Tablet PO DAILY CASANDRA Atorvastatin Calcium 10 mg 01/08/25 09:00 01/09/25 08:25 Atorvastatin 10 Mg Tablet PO 10 mg DAILY CASANDRA Administration Carvedilol 3.125 mg 01/07/25 21:00 01/09/25 08:24 Carvedilol 3.125 Mg Tablet PO 3.125 mg Q12HR CASANDRA Administration Cyanocobalamin 1,000 mcg 01/08/25 09:00 01/09/25 08:24 Cyanocobalamin 1,000 Mcg Tablet PO 1,000 mcg DAILY CASANDRA Administration Duloxetine HCl 60 mg 01/08/25 09:00 01/09/25 08:24 Duloxetine Hcl 60 Mg Capsule.Dr PO 60 mg DAILY CASANDRA Administration Ezetimibe 10 mg 01/08/25 09:00 01/09/25 08:25 Ezetimibe 10 Mg Tablet PO 10 mg DAILY CASANDRA Administration Enoxaparin Sodium 30 mg 01/08/25 09:00 01/09/25 08:25 Enoxaparin 30 Mg/0.3 Ml Syringe SUB-Q 30 mg DAILY CASANDRA Administration Famotidine 20 mg 01/07/25 19:29 Famotidine 20 Mg Tablet PO BID PRN acid reflex Folic Acid 1 mg 01/08/25 09:00 01/09/25 08:24 Folic Acid 1 Mg Tablet PO 1 mg DAILY CASANDRA Administration Gabapentin 600 mg 01/08/25 09:00 01/09/25 13:04 Gabapentin 300 Mg Capsule PO 600 mg TID CASANDRA Administration Ceftriaxone Sodium 1 gm in 50 mls @ 100 mls/hr 01/07/25 13:35 01/09/25 08:56 Rocephin 1 Gm/Ns 50 Ml IVPB Infused QAM CASANDRA Infusion Azithromycin 500 mg in 250 mls @ 250 mls/hr 01/07/25 13:35 01/09/25 09:34 Zithromax IVPB 100 mls/hr QAM CASANDRA Administration Levothyroxine Sodium 50 mcg 01/08/25 06:30 01/09/25 05:19 Levothyroxine Sodium 50 Mcg Tablet PO 50 mcg DAILY@0630 CASANDRA Administration Losartan Potassium 50 mg 01/07/25 21:00 Losartan Potassium 50 Mg Tablet PO HS CASANDRA Memantine 5 mg 01/07/25 21:00 01/09/25 08:25 Memantine 5 Mg Tablet PO 5 mg Q12HR CASANDRA Administration Methocarbamol 500 mg 01/07/25 19:29 Methocarbamol 500 Mg Tablet PO BID PRN muscle spasms Miscellaneous Information 1 each 01/07/25 00:01 01/09/25 01:24 Please Send Eszopiclone To Pharmacy For Verification If Recieved XX 02/06/25 00:00 Not Given CLARIFY CASANDRA Multivitamins/Calcium 1 tablet 01/08/25 09:00 01/09/25 08:25 Therapeutic Multivitamins/Minerals Tab (*Bkc) PO 1 tablet DAILY CASANDRA Administration Non-Formulary Medication 3 mg 01/07/25 21:00 Eszopiclone PO 02/06/25 20:59 HS [facility] Pantoprazole Sodium 40 mg 01/07/25 21:00 01/09/25 08:25 Pantoprazole 40 Mg Tablet PO 40 mg Q12HR CASANDRA Administration Prednisone 3 mg 01/08/25 09:00 01/09/25 08:25 Prednisone 1 Mg Tablet PO 3 mg DAILY CASANDRA Administration Radiology Results: ITS Impressions Chest X-Ray 01/07/25 13:18 Impression: Probable multilobar right lung pneumonia. Asymmetric pulmonary edema less likely. Labs Labs: Laboratory Results - last 24 hr 01/09/25 04:48 WBC 12.5 H RBC 3.27 L Hgb 9.8 L Hct 31.5 L MCV 96.3 MCH 30.0 MCHC 31.1 L RDW 14.4 Plt Count 267 MPV 10.3 Immature Gran % (Auto) 0.6 H Neut % (Auto) 77.3 H Lymph % (Auto) 13.4 L [place] % (Auto) 4.8 Eos % (Auto) 3.6 Baso % (Auto) 0.3 Lymph # (Auto) 1.67 [place] # (Auto) 0.6 Eos # (Auto) 0.5 H Baso # (Auto) 0.0 Abs Immat Gran (auto) 0.08 H Absolute Neuts (auto) 9.6 H Absolute Nucleated RBC 0.000 Nucleated RBC % 0.0 Sodium 140 Potassium 3.9 Chloride 110 H Carbon Dioxide 24 Anion Gap 6 BUN 14 D Creatinine 0.78 Estim Creat Clear Calc 44 Estimated GFR > 60 Glucose 79 Calcium 8.9 Magnesium 1.8 Total Bilirubin 0.4 AST 24 ALT 20 Alkaline Phosphatase 76 Total Protein 5.9 L Albumin 3.1 L Procalcitonin 9.9 Quality VTE Prophylaxis VTE prophylaxis: pharmacologic ordered (Lovenox)
[2025-01-10] MEDS: ALBUTEROL SULFATE NEB 2.5 MG/3 ML INH INHALATION ×2 (01:48→07:37)
[2025-01-10 01:49] VITALS: PULSE 73; RESP 16
[2025-01-10 02:02] VITALS: PULSE 76; RESP 16
[2025-01-10] MEDS: ACETAMINOPHEN 325 MG TABLET 650 MG PO (03:51)
[2025-01-10 05:14] LABS: Basophils Absolute Auto 0.1 K/mm3 (0.0-0.1); Basophils Percent Auto 0.7 % (0.2-1.2); Eosinophils Absolute Auto 0.4 K/mm3 (0-0.3); Eosinophils Percent Auto 4.9 % (0-4.4); Hematocrit 35.3 % (37.0-47.0); Hemoglobin 11.1 g/dL (12.0-15.0); Immature Granulocyte Absolute 0.03 K/mm3 (0.00-0.031); Immature Granulocyte Percent A 0.4 % (0-0.5); Lymphocytes Absolute Auto 1.58 K/mm3 (0.9-3.2); Lymphocytes Percent Auto 20.9 % (18.3-44.2); Mean Corpuscular HGB Conc 31.4 g/dl (32-36); Mean Corpuscular Hemoglobin 29.8 pg (26-34); Mean Corpuscular Volume 94.6 fl (80-100); Mean Platelet Volume 10.3 fl (7.4-10.4); Monocytes Absolute Auto 0.5 K/mm3 (0.1-0.6); Monocytes Percent Auto 6.5 % (2.6-8.5); Neutrophils Percent Auto 66.6 % (45.5-73.1); Platelet Count Result 286 k/mm3 (150-375); Red Blood Count 3.73 M/mm3 (4.2-5.4); Red Cell Distribution Width 14.2 % (11.5-14.5); White Blood Count 7.6 K/mm3 (4.5-10.0)
[2025-01-10 05:28] LABS: Alanine Aminotransferase 28 U/L (6-35); Albumin Level 3.6 g/dL (3.5-5.1); Alkaline Phosphatase 77 U/L (38-126); Anion Gap 8 mmol/L (4-12); Aspartate Amino Transferase 34 U/L (14-36); Bilirubin,Total 0.6 mg/dL (0.2-1.3); Blood Urea Nitrogen 9 mg/dL (7-17); Calcium 9.2 mg/dL (8.4-10.2); Carbon Dioxide 25 mmol/L (22-30); Chloride 105 mmol/L (98-107); Estimated CRCL calculation 54 ml/min; Estimated Glomerular Filt Rate > 60; Glucose 98 mg/dL (65-110); Magnesium 1.7 mg/dL (1.6-2.3); Sodium 138 mmol/L (137-145); Total Protein 6.9 g/dL (6.3-8.2)
[2025-01-10] MEDS: LEVOTHYROXINE SODIUM 50 MCG TABLET PO (05:34)
[2025-01-10 06:00] VITALS: BP 133/77; PULSE 75; RESP 18; TEMP 36.4; O2SAT 95
[2025-01-10 07:38] VITALS: PULSE 101; RESP 16
[2025-01-10 07:45] VITALS: PULSE 76; RESP 16
[2025-01-10] MEDS: THERAPEUTIC MULTIVITAMINS/MINERALS TAB (*BKC) 1 TABLET PO (09:29)
[2025-01-10 09:30] VITALS: PULSE 76
[2025-01-10] MEDS: EZETIMIBE 10 MG TABLET PO (09:30)
[2025-01-10] MEDS: PANTOPRAZOLE 40 MG TABLET PO (09:30)
[2025-01-10] MEDS: MEMANTINE 5 MG TABLET PO (09:30)
[2025-01-10] MEDS: GABAPENTIN 300 MG CAPSULE 600 MG PO ×2 (09:30→12:25)
[2025-01-10] MEDS: CYANOCOBALAMIN 1,000 MCG TABLET 1000 MCG PO (09:30)
[2025-01-10] MEDS: carvediloL 3.125 MG TABLET PO (09:30)
[2025-01-10] MEDS: predniSONE 1 MG TABLET 3 MG PO (09:30)
[2025-01-10] MEDS: DULoxetine HCL 60 MG CAPSULE.DR PO (09:31)
[2025-01-10] MEDS: FOLIC ACID 1 MG TABLET PO (09:31)
[2025-01-10] MEDS: AZITHROMYCIN 250 MG TABLET 500 MG PO (09:31)
[2025-01-10] MEDS: AMOXICILLIN/CLAVULANATE K 875-125 MG TAB 1 TABLET PO (09:31)
[2025-01-10] MEDS: ENOXAPARIN 30 MG/0.3 ML SYRINGE SUB-Q (09:32)
[2025-01-10] MEDS: ATORVASTATIN 10 MG TABLET PO (09:32)
--- NOTE | 2025-01-10 12:24 | PM.DS ---
DS: Admitting Diagnosis Discharge Date 01/10/2025 Admitting Diagnosis PNA DS: Discharge Diagnosis Discharge Diagnosis (1) Sepsis: Qualifiers: Sepsis acute organ dysfunction status: without acute organ dysfunction Sepsis type: sepsis due to unspecified organism Qualified Code(s): A41.9 - Sepsis, unspecified organism Code(s): A41.9 - Sepsis, unspecified organism Status: Acute Assessment and Plan: -Fever with tachycardia, significantly elevated WBC with bandemia and mild AUTUMN -Source of infection right middle/lower lobe pneumonia -IV antibiotics given in ER and continued on admission, Rocephin/azithromycin -Urine negative wbc improved no fever will downgrade to PO antibiotics in anticipation of discharge most likely tomorrow if stable overnight - 01/09 01/10: Pt has been stable overnight, VSS, labs WDL. Pt states that she is feeling much better. PEx WDL, lungs sound good. Will d/c today with remaining course of abx. (2) Acute hypoxic respiratory failure: Code(s): J96.01 - Acute respiratory failure with hypoxia Status: Acute Assessment and Plan: -Oxygen below 90% in ER, improved with nasal cannula use, now on baseline RA satting WDL -Patient does not usually wear oxygen - has COPD and has been sick recently with increased respiratory symptoms -Covid/Flu/RSV negative here today - Wean off oxygen if able, back to baseline RA (3) Multifocal pneumonia: Code(s): J18.9 - Pneumonia, unspecified organism Status: Acute Assessment and Plan: -See above (4) Bandemia: Code(s): D72.825 - Bandemia Status: Acute Assessment and Plan: -See above (5) Chronic kidney disease: Qualifiers: Chronic kidney disease stage: stage 3 (moderate) Chronic kidney disease stage 3 subtype: stage 3a (GFR 45-59) Qualified Code(s): N18.31 - Chronic kidney disease, stage 3a Code(s): N18.9 - Chronic kidney disease, unspecified Status: Chronic Assessment and Plan: -AUTUMN on CKD noted with worsening of eGFR to 44 on admit, baseline appears to be 51 to >60 - Resolved -IV fluids given in ER and continued at a rate overnight -Repeat labs in AM ordered - Resolved, stable -Avoid nephrotoxins when possible (6) Hyperlipidemia: Qualifiers: Hyperlipidemia type: mixed hyperlipidemia Qualified Code(s): E78.2 - Mixed hyperlipidemia Code(s): E78.5 - Hyperlipidemia, unspecified Status: Chronic Assessment and Plan: -Continue home medication (7) Hypertension: Qualifiers: Hypertension type: primary hypertension Qualified Code(s): I10 - Essential (primary) hypertension Code(s): I10 - Essential (primary) hypertension Status: Chronic Assessment and Plan: Continue home meds upon D/C, pt's BP readings have been WDL on home meds while inpt. (8) Hypothyroidism: Qualifiers: Hypothyroidism type: acquired Qualified Code(s): E03.9 - Hypothyroidism, unspecified Code(s): E03.9 - Hypothyroidism, unspecified Status: Chronic Assessment and Plan: -Continue home medications (9) Chronic GERD: Code(s): K21.9 - Gastro-esophageal reflux disease without esophagitis Status: Chronic Assessment and Plan: -Continue home medications Plan D/C today with remaining course of oral abx. Will f/u with PCP in 1-2 weeks for continued care. DS: Summary Hospital Course Reason for hospitalization: PNA Hospital Course: 84 year old female patient who lives at a senior housing establishment with her who is admitted to the hospital with hypoxia and multifocal pneumonia and labs/vitals consistent with sepsis. Pts oxygen level was below 90%, fever and tachycardia. She was started on oxygen in the ED. CXR shows right middle/lower lobe pneumonia. Lactic acid WNL. She was started on Rocephin and azithromycin IV and admitted for further treatment. WBC highly elevated at 21.6 with primarily neutrophils and 8% bandemia noted. Patient started on breathing treatments. 01/09- off oxygen since last night- feeling a bit better but still get sob with any exertion. 01/10: Pt has been stable overnight, VSS, labs WDL. Pt states that she is feeling much better. PEx WDL, lungs sound good. Will d/c today with remaining course of abx. Status at Discharge Cognitive/behavioral status at discharge: Stable Functional status at discharge: independent ambulation Overall status at discharge: patient is back to baseline Time Spent with Patient Time attestation: Total time spent providing and/or coordinating discharge services: Exam Const: General: comfortable and no acute distress HENMT: Face/Nose/Sinus: Normal nares present Mouth: Yes moist mucous membranes Eyes: General: appearance normal, both eyes and all related structures Sclera: sclerae normal Neck: Neck: supple and no JVD Carotids: no bruits Resp: Effort & Inspection: normal respiratory effort Auscultation: clear to auscultation bilaterally Cardio: Rate: regular rate Rhythm: regular rhythm GI: Inspection: non-distended GI Palp: Yes Soft to palpation and No Tenderness to palpation present (GI) Skin: General skin exam: normal color Wounds: no wounds Neuro: Motor exam (neuro): Normal motor muscle tone present throughout Sensory Exam: normal sensation Extrem: General: normal to inspection Psych: Mental Status: mental status grossly normal Affect: normal affect DS: Data Data Completed and Pending Labs on day of discharge: Labs from last 24 hours 01/10/25 01/08/25 04:48 08:18 WBC 7.6 RBC 3.73 L Hgb 11.1 L Hct 35.3 L MCV 94.6 MCH 29.8 MCHC 31.4 L RDW 14.2 Plt Count 286 MPV 10.3 Immature Gran % (Auto) 0.4 Neut % (Auto) 66.6 Lymph % (Auto) 20.9 [place] % (Auto) 6.5 Eos % (Auto) 4.9 H Baso % (Auto) 0.7 Lymph # (Auto) 1.58 [place] # (Auto) 0.5 Eos # (Auto) 0.4 H Baso # (Auto) 0.1 Abs Immat Gran (auto) 0.03 Absolute Neuts (auto) 5.0 Absolute Nucleated RBC 0.000 Nucleated RBC % 0.0 Sodium 138 Potassium 4.0 Chloride 105 Carbon Dioxide 25 Anion Gap 8 BUN 9 D Creatinine 0.63 L Estim Creat Clear Calc 54 Estimated GFR > 60 Glucose 98 Calcium 9.2 Magnesium 1.7 Total Bilirubin 0.6 AST 34 ALT 28 Alkaline Phosphatase 77 Total Protein 6.9 Albumin 3.6 M. pneumoniae Source Cancelled M.pneumoniae DNA (PCR) Cancelled Preliminary micro results at discharge 01/07/25 13:37 Blood Culture - Preliminary Blood 01/07/25 13:42 Blood Culture - Preliminary Blood Discharge Plan Discharge Attending physician on discharge: Consuelo Hollis Discharging Clinician: Consuelo Hollis Anticipated Discharge Date/Time: 01/10/25 13:00 Patient Disposition: Home with Home Health Service Activity: may shower and as tolerated Diet: heart healthy Discharge Instructions: Per Care coordination [facility] ([phone]) to call to schedule initial visit. *RN please fax discharge instructions to [phone]* I am prescribing you the same oral antibiotics that you were given while in hospital: Augmentin (Amoxicillin/Clav) AND Azithromycin. -For the Augmentin, you will take x3 more doses of this, starting this evening with one dose, and then 2 doses tomorrow, once in the AM and once in the PM. -For the Azithromycin, you will just take one more dose of this tomorrow AM. It is very important to take the rest of these antibiotics so that we know the pneumonia is fully gone. Continue to check your blood pressure and blood sugar at home if applicable. Keep your scheduled appts with your primary care provider and any specialist that you may see. Return to the emergency department if you develop sudden shortness of breath, chest pain, a fever of greater than 101.5, or nausea, vomiting, abd pain, or diarrhea that does not go away. Follow-up with your primary care provider within 1-2 weeks, they will want to be updated on your inpatient stay in the hospital. Thank you for choosing [facility] for your healthcare needs. Patient Instructions: Antibiotic Form, Amoxicillin/Clavulanate Potassium (By mouth), Azithromycin (By mouth), Community Acquired Pneumonia (GEN) Patient Language: Korean Stand Alone Forms: General Discharge Information Follow-up/Referrals: PHYSICIAN NOT ON STAFF,NONSTAFF [Primary Care Provider] - 2 Weeks Discharge Medications: New azithromycin [Zithromax] 250 mg Tablet 500 mg PO DAILY 1 Days Qty: 2 0RF amoxicillin-pot clavulanate 875-125 mg tablet 1 tablet PO Q12H Qty: 3 0RF Continued methocarbamol 500 mg tablet 500 mg PO BID PRN (Reason: muscle spasms) memantine 5 mg tablet 5 mg PO BID cyclobenzaprine 10 mg tablet 10 mg PO BID PRN (Reason: Muscle Spasm) gabapentin 600 mg tablet 600 mg PO TID levothyroxine 50 mcg tablet 50 mcg PO DAILY pantoprazole 40 mg tablet,delayed release (DR/EC) 40 mg PO BID folic acid 1 mg tablet 1 mg PO DAILY ezetimibe 10 mg tablet 10 mg PO DAILY eszopiclone 3 mg tablet 3 mg PO HS cyanocobalamin (vitamin B-12) [Vitamin B-12] 500 mcg Tablet 1,000 mcg PO DAILY losartan 50 mg tablet 50 mg PO HS atorvastatin 10 mg Tablet 10 mg PO DAILY amlodipine 5 mg tablet 5 mg PO DAILY famotidine 20 mg tablet 20 mg PO BID PRN (Reason: acid reflex) prednisone 1 mg tablet 3 mg PO DAILY duloxetine 60 mg capsule,delayed release(DR/EC) 60 mg PO DAILY multivit with min-folic acid 0.4 mg Tablet 1 tablet PO DAILY carvedilol [Coreg] 3.125 mg Tablet 3.125 mg PO Q12HR Qty: 60 0RF dicyclomine 10 mg capsule See Rx Instructions .ROUTE .COMPLEX PRN (Reason: Diarrhea) Rx Instructions: Take 1-2 tabs daily as needed Date of admission: 01/07/25 14:15 Primary Care Provider: PHYSICIAN NOT ON STAFF,NONSTAFF Admitting Provider: Bert William Attending physician on admission: Consuelo Hollis Condition: Stable Quality VTE Prophylaxis VTE prophylaxis: pharmacologic ordered (Lovenox) Hospitalist MIPS Heart Failure (Exclusion) Patient has history of Heart Transplant or Left Ventricular Assistive Device?: No IF YES, STOP HERE Heart Failure (Qualifier) Patient has current or prior documentation of LVEF less than or equal to 40%, or mod/servere depressed LVSF?: No IF NO, STOP HERE
[2025-01-10 15:44] LABS: Pneumococcal Antigen Urine NOT DETECTED
[2025-01-10 17:52] LABS: Legionella pneumophila Ag Ur NOT DETECTED
[2025-01-11 14:48] LABS: Chlamydia pneumoniae Source NASAL; Chlamydia pneumoniae by PCR NOT DETECTED
== END 2025-01-10 13:26 | disposition home health service (06) | DRG 871 ==
LOC: ANHED 14:38 → ANH2MED 15:20
PROVIDERS: Nurse Practitioner; Admitting Provider Family Medicine; Emergency Provider Emergency Medicine
DX: A41.9 Sepsis, unspecified organism (principal); J18.9 Pneumonia, unspecified organism; J96.01 Acute respiratory failure with hypoxia; N17.9 Acute kidney failure, unspecified; E03.9 Hypothyroidism, unspecified; E78.2 Mixed hyperlipidemia; K21.9 Gastro-esophageal reflux disease without esophagitis; I12.9 Hypertensive chronic kidney disease with stage 1 through stage 4 chronic kidney disease, or unspecified chronic kidney disease; N18.31 Chronic kidney disease, stage 3a; F03.90 Unspecified dementia, unspecified severity, without behavioral disturbance, psychotic disturbance, mood disturbance, and anxiety; M70.62 Trochanteric bursitis, left hip; D64.9 Anemia, unspecified; Z90.49 Acquired absence of other specified parts of digestive tract; Z90.710 Acquired absence of both cervix and uterus
CPT/HCPCS: 36415; 71045; 80053; 81003; 83605; 83735; 84145; 85025; 85610; 85730; 86140; 87040; 87449; 87486; 87637; 87899; 93005; 94640; 96361; 96374; 96375; 97110; 97161; 97166; 97530; 97535; 99285; A9270; J0456; J0696; J1650; J7030